=== PATIENT | male | born 1970 ===

== ENCOUNTER → 2019-12-15 09:23 | Outpatient (BNVA) | payer MEDICAID, SELFPAY | PROVIDERS: PCP Internal Medicine Geriatric Medicine; Referring Provider Internal Medicine Geriatric Medicine; Visit Provider Psychiatry & Neurology Neurology | DX: G47.33 Obstructive sleep apnea (adult) (pediatric) (principal); Z99.89 Dependence on other enabling machines and devices | CPT/HCPCS: 99204 ==

== ENCOUNTER 2020-01-07 16:54 | Outpatient (REF) | payer MEDICAID, SELFPAY ==
[2020-01-07 18:37] LABS: Anion Gap 17 (12-20); Blood Urea Nitrogen 17 mg/dL (9-16); Calcium 9.1 mg/dL (8.4-10.2); Carbon Dioxide 29 mmol/L (22-29); Chloride 93 mmol/L (96-108); Estimated Glomerular Filt Rate > 60; Glucose Random 248 mg/dL (60-115); Sodium 135 mmol/L (135-145)
== END 2020-01-07 16:55 | disposition home or self-care (01) ==
LOC: HO.LAB 16:54
PROVIDERS: PCP Internal Medicine Geriatric Medicine; Visit Provider Nurse Practitioner Family
DX: I10 Essential (primary) hypertension (principal)
CPT/HCPCS: 80048

== ENCOUNTER → 2020-01-19 08:29 | Outpatient (BNVA) | payer MEDICAID, SELFPAY | PROVIDERS: PCP Internal Medicine Geriatric Medicine; Referring Provider Internal Medicine Geriatric Medicine; Visit Provider Psychiatry & Neurology Neurology | DX: Z76.89 Persons encountering health services in other specified circumstances (principal) ==

== ENCOUNTER → 2020-03-15 10:26 | Outpatient (BNVA) | payer MEDICAID, SELFPAY | PROVIDERS: PCP Internal Medicine Geriatric Medicine; Visit Provider Internal Medicine Pulmonary Disease | DX: J45.50 Severe persistent asthma, uncomplicated (principal); R06.00 Dyspnea, unspecified; G47.33 Obstructive sleep apnea (adult) (pediatric) | CPT/HCPCS: 99212 ==

== ENCOUNTER → 2020-05-17 14:00 | Outpatient (BNVA) | payer MEDICAID, SELFPAY | PROVIDERS: PCP Internal Medicine Geriatric Medicine; Visit Provider Internal Medicine Pulmonary Disease | DX: J45.50 Severe persistent asthma, uncomplicated (principal); G47.33 Obstructive sleep apnea (adult) (pediatric) | CPT/HCPCS: 99212 ==

== ENCOUNTER 2020-05-24 12:21 | Outpatient (REF) | payer MEDICAID, SELFPAY ==
[2020-05-24 13:55] LABS: MANUAL DIFF FLAG NO
[2020-05-24 14:18] LABS: Alanine Aminotransferase 55 U/L (0-40); Albumin Level 3.9 g/dL (3.5-5.0); Alkaline Phosphatase 220 U/L (39-117); Anion Gap 20 (12-20); Aspartate Amino Transferase 67 U/L (5-37); Basophils Absolute Auto 0.1 X10*3/uL (0.0-0.2); Basophils Percent Auto 0.4 % (0-2); Bilirubin Total 0.5 mg/dL (0.0-1.0); Blood Urea Nitrogen 25 mg/dL (9-16); Calcium 9.4 mg/dL (8.4-10.2); Carbon Dioxide 24 mmol/L (22-29); Chloride 92 mmol/L (96-108); Eosinophils Absolute Auto 0.3 X10*3/uL (0.0-0.4); Eosinophils Percent Auto 2.7 % (0-4); Estimated Glomerular Filt Rate 47; Glucose Random 242 mg/dL (60-115); Hematocrit 35.3 % (42-52); Hemoglobin 11.1 g/dl (14.0-18.0); Imm Gran Abs Auto 0.04 X10*3/uL (0.00-0.03); Imm Gran Pct Auto 0.3 % (0.0-0.4); Iron 24 mcg/dL (45-160); Lymphocytes Absolute Auto 2.9 X10*3/uL (1.2-4.9); Lymphocytes Percent Auto 24.4 % (20-40); Mean Corpuscular HGB Conc 31.4 g/dl (31.0-36.0); Mean Corpuscular Hemoglobin 24.3 pg (27.0-33.0); Mean Corpuscular Volume 77.2 fL (80-98); Mean Platelet Volume 9.5 fL (9.4-12.4); Monocytes Absolute Auto 0.8 X10*3/uL (0.1-1.2); Monocytes Percent Auto 6.6 % (2-11); Neutrophils Absolute Auto 7.9 X10*3/uL (2.0-8.3); Neutrophils Percent Auto 65.6 % (45-73); Percent Iron Saturation 6 % (15-50); Platelet Count 500 X10*3/uL (160-400); Red Blood Count 4.57 X10*6/uL (4.60-5.80); Red Cell Distribution Width 15.8 % (11.0-16.0); Sodium 132 mmol/L (135-145); Total Iron Binding Capacity 377 mcg/dL (228-428); Total Protein 7.7 g/dL (6.5-8.0); Unsaturated Iron Binding 353 ug/dL; White Blood Count 12.1 X10*3/uL (4.8-10.8)
[2020-05-24 14:40] LABS: Ferritin 25 ng/mL (20-250)
== END 2020-05-24 12:22 | disposition home or self-care (01) ==
LOC: HO.LAB 12:21
PROVIDERS: PCP Internal Medicine Geriatric Medicine; Visit Provider Physician Assistant
DX: R10.11 Right upper quadrant pain (principal); D64.9 Anemia, unspecified; R74.01 Elevation of levels of liver transaminase levels
CPT/HCPCS: 36415; 80053; 82728; 83540; 85025

== ENCOUNTER 2020-06-07 14:24 | Outpatient (REF) | payer MEDICAID, SELFPAY ==
[2020-06-07 16:23] LABS: MANUAL DIFF FLAG NO
[2020-06-07 16:28] LABS: Basophils Absolute Auto 0.1 X10*3/uL (0.0-0.2); Basophils Percent Auto 0.4 % (0-2); Eosinophils Absolute Auto 0.4 X10*3/uL (0.0-0.4); Eosinophils Percent Auto 2.7 % (0-4); Hematocrit 34.6 % (42-52); Hemoglobin 10.6 g/dl (14.0-18.0); Imm Gran Abs Auto 0.05 X10*3/uL (0.00-0.03); Imm Gran Pct Auto 0.4 % (0.0-0.4); Lymphocytes Absolute Auto 2.1 X10*3/uL (1.2-4.9); Lymphocytes Percent Auto 15.5 % (20-40); Mean Corpuscular HGB Conc 30.6 g/dl (31.0-36.0); Mean Corpuscular Hemoglobin 24.1 pg (27.0-33.0); Mean Corpuscular Volume 78.6 fL (80-98); Mean Platelet Volume 9.3 fL (9.4-12.4); Monocytes Absolute Auto 0.8 X10*3/uL (0.1-1.2); Monocytes Percent Auto 5.7 % (2-11); Neutrophils Percent Auto 75.3 % (45-73); Platelet Count 458 X10*3/uL (160-400); Red Cell Distribution Width 15.6 % (11.0-16.0); White Blood Count 13.2 X10*3/uL (4.8-10.8)
== END 2020-06-07 14:25 | disposition home or self-care (01) ==
LOC: HO.LAB 14:24
PROVIDERS: Absent Provider Physician Assistant; PCP Internal Medicine Geriatric Medicine; Visit Provider Internal Medicine
DX: Z01.811 Encounter for preprocedural respiratory examination (principal); J45.50 Severe persistent asthma, uncomplicated; E66.01 Morbid (severe) obesity due to excess calories; Z68.42 Body mass index [BMI] 45.0-49.9, adult; G47.33 Obstructive sleep apnea (adult) (pediatric); D64.9 Anemia, unspecified; Z79.899 Other long term (current) drug therapy; Z99.89 Dependence on other enabling machines and devices
CPT/HCPCS: 36415; 85025; 99212

== ENCOUNTER 2020-06-09 11:22 | Day surgery (SDC) | payer MEDICAID, SELFPAY ==
--- NOTE | 2020-06-08 11:04 | P.CONAN_ITS ---
Documented by User: Kiesha Huston 06/08/20 11:12 HPI - Anesthesia Eval Consult details Narrative: 50yo M for Upper Endoscopy and Colonoscopy Pulm cleared FROM PULMONARY POINT OF VIEW THIS GENTLEMAN DOES NOT HAVE ANY CONTRAINDICATION TO THE PLANNED SURGICAL PROCEDURE. BECAUSE OF HIS MORBID OBESITY AND ALSO ASSOCIATED RESTRICTIVE PULMONARY DISORDER, HE IS A RELATIVELY HIGHER RISK FOR ANY PROLONGED SURGICAL PROCEDURE AND REQUIRING PROLONGED GENERAL ANESTHESIA. BUT FOR REGULAR COLONOSCOPY HE SHOULD HAVE NO PROBLEM. PMF Active Problems Active Problems: All Active Problems (Updated 06/07/20 @ 15:14 by Sherice Mathis MD) MAURIZIO on CPAP (Acute) Morbid obesity (Acute) Diabetes (Acute) Anemia (Acute) Apnea, sleep (Acute) Dyspnea on exertion (Acute) Severe persistent allergic asthma (Acute) HTN (hypertension) (Acute) Obstructive sleep apnea (Acute) Past Medical History Medical History Anemia Apnea, sleep Asthma Degeneration of L4-L5 intervertebral disc Diabetes HTN (hypertension) Morbid obesity MAURIZIO on CPAP Family History Family History Father No problems noted. Mother CVD (cardiovascular disease) Social History Social History Household Members: Significant Other Alcohol intake: never Smoking Status: Never smoker Use of substances other than those prescribed or required for medical reasons: No Have you been hit, kicked, punched, or otherwise hurt by someone within the past year? If so, by whom?: No Advance Directives: Yes Advance Directives Information Provided: Yes Advance Directives on File: No Advance Directives Date on File: 06/09/20 Current occupational status: unemployed Meds Allergies Allergy/AdvReac Type Severity Reaction Status Date / Time No Known Allergies Allergy Verified 06/07/20 14:32 Home Medications Medication Instructions Recorded Confirmed Last Taken Type acetaminophen 500 mg tablet 1,000 mg PO Q6H PRN 05/24/20 05/24/20 Unknown History amlodipine 2.5 mg-atorvastatin 10 1 tab PO DAILY 05/24/20 05/24/20 Unknown History mg tablet aspirin 81 mg tablet,delayed 81 mg PO DAILY 05/24/20 05/24/20 Unknown History release chlorthalidone 25 mg tablet 25 mg PO DAILY 05/24/20 05/24/20 Unknown History empagliflozin 10 mg tablet 10 mg PO DAILY 05/24/20 05/24/20 Unknown History furosemide 40 mg tablet 40 mg PO BID 05/24/20 05/24/20 Unknown History gabapentin 300 mg capsule 300 mg PO DAILY 05/24/20 05/24/20 Unknown History gabapentin 600 mg tablet 600 mg PO BEDTIME 05/24/20 05/24/20 Unknown History glimepiride 2 mg tablet 2 mg PO DAILY 05/24/20 05/24/20 Unknown History ketoconazole 2 % topical gel 1 appl TOPICAL DAILY 05/24/20 05/24/20 Unknown History lisinopril 40 mg tablet 40 mg PO DAILY 05/24/20 05/24/20 Unknown History metformin 1,000 mg tablet 1,000 mg PO BID 05/24/20 05/24/20 Unknown History naproxen 500 mg tablet 500 mg PO BID 05/24/20 05/24/20 Unknown History omeprazole 20 mg capsule,delayed 20 mg PO DAILY 05/24/20 05/24/20 Unknown History release pravastatin 20 mg tablet 20 mg PO BEDTIME 05/24/20 05/24/20 Unknown History tadalafil 10 mg tablet 10 mg PO DAILY PRN 05/24/20 05/24/20 Unknown History albuterol sulfate 2.5 mg INHALATION Q4-6H PRN 06/07/20 Unknown History albuterol sulfate 90 mcg/actuation 2 puff INHALATION Q6H PRN 06/07/20 Unknown History aerosol inhaler Exam Exam Date and Time: June 08, 2020 1104 Pertinent Lab Results Pertinent Lab Results: Laboratory Tests 05/24/20 06/07/20 13:29 15:30 WBC 13.2 H Hgb 10.6 L Hct 34.6 L Plt Count 458 H Sodium 132 L Potassium 4.0 Chloride 92 L Carbon Dioxide 24 BUN 25 H Creatinine 1.58 H Narrative Narrative: ECHO 2019 Nml LV systolic function with severe LVH Grade 2 Diastolic dysfunction Normal valves No gross pericardial effusion Stress MIBI 09/2019 Normal myocardial effusion Gated LVEF is 44% No transient ischemic dilation Assessment and Plan Assessment Anesthesia Assessment: Chart Reviewed Documented by User: Damon Gonzalez MD 06/09/20 13:20 [facility] Past Medical History Medical History Anemia Apnea, sleep Asthma Degeneration of L4-L5 intervertebral disc Diabetes HTN (hypertension) Morbid obesity MAURIZIO on CPAP Family History Family History Father No problems noted. Mother CVD (cardiovascular disease) Social History Social History Household Members: Significant Other Alcohol intake: never Smoking Status: Never smoker Use of substances other than those prescribed or required for medical reasons: No Have you been hit, kicked, punched, or otherwise hurt by someone within the past year? If so, by whom?: No Advance Directives: Yes Advance Directives Information Provided: Yes Advance Directives on File: No Advance Directives Date on File: 06/09/20 Current occupational status: unemployed Meds Allergies Allergy/AdvReac Type Severity Reaction Status Date / Time No Known Allergies Allergy Verified 06/07/20 14:32 Home Medications Medication Instructions Recorded Confirmed Last Taken Type acetaminophen 500 mg tablet 1,000 mg PO Q6H PRN 05/24/20 05/24/20 Unknown History amlodipine 2.5 mg-atorvastatin 10 1 tab PO DAILY 05/24/20 05/24/20 Unknown History mg tablet aspirin 81 mg tablet,delayed 81 mg PO DAILY 05/24/20 05/24/20 Unknown History release chlorthalidone 25 mg tablet 25 mg PO DAILY 05/24/20 05/24/20 Unknown History empagliflozin 10 mg tablet 10 mg PO DAILY 05/24/20 05/24/20 Unknown History furosemide 40 mg tablet 40 mg PO BID 05/24/20 05/24/20 Unknown History gabapentin 300 mg capsule 300 mg PO DAILY 05/24/20 05/24/20 Unknown History gabapentin 600 mg tablet 600 mg PO BEDTIME 05/24/20 05/24/20 Unknown History glimepiride 2 mg tablet 2 mg PO DAILY 05/24/20 05/24/20 Unknown History ketoconazole 2 % topical gel 1 appl TOPICAL DAILY 05/24/20 05/24/20 Unknown History lisinopril 40 mg tablet 40 mg PO DAILY 05/24/20 05/24/20 Unknown History metformin 1,000 mg tablet 1,000 mg PO BID 05/24/20 05/24/20 Unknown History naproxen 500 mg tablet 500 mg PO BID 05/24/20 05/24/20 Unknown History omeprazole 20 mg capsule,delayed 20 mg PO DAILY 05/24/20 05/24/20 Unknown History release pravastatin 20 mg tablet 20 mg PO BEDTIME 05/24/20 05/24/20 Unknown History tadalafil 10 mg tablet 10 mg PO DAILY PRN 05/24/20 05/24/20 Unknown History albuterol sulfate 2.5 mg INHALATION Q4-6H PRN 06/07/20 Unknown History albuterol sulfate 90 mcg/actuation 2 puff INHALATION Q6H PRN 06/07/20 Unknown History aerosol inhaler Assessment and Plan Assessment Anesthesia Assessment: Anesthesia Plan Discussed and Chart Reviewed Final Anesthetic Review NPO: Yes ASA Class: III Final Preanesthetic Review: No Changes in Pt Med Stat, Meds/Allgs Chart Reviewed, Consent Obtained/Reviewed and Anes Risks/Benef Reviewed Patient Risk: High Procedure Risk: Low Anesthetic Plan Anesthetic Plan: GA Disposition: Standard PACU
[2020-06-09 12:02] VITALS: BP 138/79; PULSE 103; RESP 20; TEMP 36.9; O2SAT 96
[2020-06-09 12:03] LABS: Glucose, Whole Blood 159 mg/dL (60-115)
[2020-06-09 12:25] VITALS: BMI 46.2
[2020-06-09] MEDS: Lactated Ringers 1,000 ML 50 ML IV (12:27)
--- NOTE | 2020-06-09 12:48 | P.OP_ITS ---
Operative Note Operative Note Date of Service: 06/09/20 Narrative: Pre-op diagnosis: Iron deficiency anemia, GERD Post-op diagnosis: other (Gastritis, gastric antral nodules, diverticulosis, hemorrhoids) Procedure: FLEXIBLE TRANSORAL UPPER GASTROINTESTINAL ENDOSCOPY WITH BIOPSIES AND COLONOSCOPY TILL CECUM UPPER ENDOSCOPY Consent: Indications for the procedure and potential complications of bleeding, perforation, reaction to medications and missed diagnosis were discussed with the patient and informed consent was obtained. Instrument: Olympus GIF H 190 mid size upper endoscope Monitoring: Vital signs and clinical assessment, continuous EKG monitoring, Pulse oximetry, Carbon Dioxide monitoring and blood pressure monitoring were done throughout the procedure. Procedure: The patient was placed in the left lateral decubitis position and pre-procedure medications were administered and a bite block was placed. The endoscope was inserted into the mouth and advanced under direct vision to the third part of duodenum. A careful inspection was made as the upper endoscope was withdrawn including a retroflexed examination of the proximal stomach; Findings and interventions are described below. Findings: Larynx: ETT in place Esophagus: GE junction at 42 cms. No esophagitis or Bales's. Stomach: Moderate diffuse gastric erythema with nodular appearing gastric mucosa - Biopsies were obtained from the body and antrum. Multiple 5-10 mm chronic appearing nodules with central erosions in the gastric antrum - biopsied. Grade 2 flap valve on retroflexed examination of the cardia. Duodenum: Normal bulb and descending duodenum. Biopsies were obtained from 3rd part of the duodenum to check for celiac sprue. Intervention: Biopsies as noted above COLONOSCOPY PROCEDURE NOTE Consent: Indications for the procedure and potential complications of bleeding, perforation, reaction to medications and missed diagnosis were discussed with the patient and informed consent was obtained. Instrument: Olympus PCF H 190 L variable stiffness pediatric colonoscope Monitoring: Vital signs and clinical assessment, intermittent blood pressure monitoring, continuous EKG monitoring, Pulse oximetry and Carbon Dioxide monitoring were done throughout the procedure. Colon withdrawl time was 21 minutes. Procedure: The patient was placed in the left lateral decubitis position and pre-procedure medications were administered. After a digital rectal examination of the ano-rectum, the video colonoscope was inserted into the rectum and advanced through the colon to the cecum. The colonoscope was slowly withdrawn in a retrograde panoramic fashion and the colon mucosa was carefully examined including a retroflexed view of the rectum. Findings and interventions are described below. Procedure Difficulty: : Without difficulty Findings: Terminal Ileum: Not evaluated Cecum: Normal Ascending Colon: Normal Transverse Colon: Normal Descending Colon: Normal Sigmoid Colon: Moderate diverticulosis Rectum: Normal Ano-rectum: Moderate internal hemorrhoids Colon preparation: Good after some irrigation Impression and Post Procedure Diagnosis: Endoscopy Findings: STOMACH: Moderate diffuse gastric erythema with nodular appearing gastric mucosa - Biopsies were obtained from the body and antrum. Multiple 5-10 mm chronic appearing nodules with central erosions in the gastric antrum - biopsied. DUODENUM: Normal biopsied to check for celiac sprue Colonoscopy Findings: No polyps were detected. Moderate diverticulosis seen in the sigmoid colon Moderate hemorrhoids on retroflexed exam. No etiology found for iron deficiency anemia - questionably related to H.pylori gastritis Plan: Await pathology results Patient to schedule a FU appointment in the GI Clinic with GALLITO Epps . If gastric biopsies are negative for Helicobacter pylori, advise checking stool hemoccults and if positive, consider further evaluation of iron deficiency anemia with a capsule endoscopy. Repeat Colonoscopy in 10 years. Above findings were reviewed with the patient and GERD, Gastritis and diverticulosis handouts were given in the discharge area Surgeon: Kike Childress MD Anesthesia: MAC (Luisa Iglesias CRNA & Dr Gonzalez) [place] Manager: Terese Lockett Estimated blood loss (mL): 0 Pathology: other (A- SMALL BOWEL BIOPSIES R/O CELIAC B- GASTRIC ANTRUM C- GASTRIC ANTRAL NODULE D- GASTRIC BODY R/O GASTRITIS) Condition: stable Disposition: PACU
--- NOTE | 2020-06-09 12:48 | MHC.SHP ---
Pre-Procedural Eval Section A The patient is an INPATIENT: No Changes since office visit: Yes Patient answered all questions; No Cold of Flu in the past 2 weeks, No New Medical Problems and No Changes in Medication The History & Physical has been completed within 30 days and I have reviewed it.: Yes Section B Chief Complaint: Anemia Allergies: Allergies Allergy/AdvReac Type Severity Reaction Status Date / Time No Known Allergies Allergy Verified 06/07/20 14:32 Exam Surgical H&P Exam: Normal: Heart, Normal: Lungs, Normal: Extremities and Normal: Abdomen and Significant Findings: Neurological (morbidly obese) Plan Diagnosis/Plan: Unchanged I have reviewed the history and physical and performed a pertinent physical examination on my patient. No changes have occurred unless specified.
[2020-06-09 14:15] VITALS: BP 161/87; PULSE 105; RESP 20; TEMP 36.7; O2SAT 99
[2020-06-09 14:20] VITALS: BP 153/90; PULSE 101; RESP 20; O2SAT 98
[2020-06-09 14:25] VITALS: BP 149/89; PULSE 100; RESP 18; O2SAT 98
[2020-06-09 14:30] VITALS: BP 143/81; PULSE 99; RESP 20; O2SAT 97
[2020-06-09 14:43] VITALS: BP 142/89; PULSE 98; RESP 20; O2SAT 97
== END 2020-06-09 15:04 | disposition home or self-care (01) ==
PROVIDERS: PCP Internal Medicine Geriatric Medicine; Visit Provider Internal Medicine Gastroenterology
PROC: (CPT 45378; principal; 2020-06-09 12:30)
DX: D50.9 Iron deficiency anemia, unspecified (principal); K57.30 Diverticulosis of large intestine without perforation or abscess without bleeding; K64.8 Other hemorrhoids; K29.50 Unspecified chronic gastritis without bleeding; B96.81 Helicobacter pylori [H. pylori] as the cause of diseases classified elsewhere; K31.7 Polyp of stomach and duodenum; G47.33 Obstructive sleep apnea (adult) (pediatric); J45.909 Unspecified asthma, uncomplicated; I10 Essential (primary) hypertension; E11.9 Type 2 diabetes mellitus without complications; E66.01 Morbid (severe) obesity due to excess calories; Z79.51 Long term (current) use of inhaled steroids; Z79.82 Long term (current) use of aspirin; Z79.899 Other long term (current) drug therapy; Z79.84 Long term (current) use of oral hypoglycemic drugs
CPT/HCPCS: 45378; 43239; 82947; 88305; 88342; J0330; J2405; J3010

== ENCOUNTER 2020-06-24 13:43 | Outpatient (REF) | payer MEDICAID, SELFPAY | END 2020-06-24 13:44 | disposition home or self-care (01) | LOC: HO.MDS 13:43 | PROVIDERS: PCP Internal Medicine Geriatric Medicine; Visit Provider Internal Medicine Pulmonary Disease | DX: J45.50 Severe persistent asthma, uncomplicated (principal) | CPT/HCPCS: 96372; J0517 ==

== ENCOUNTER 2020-07-08 16:27 | Outpatient (REF) | payer MEDICAID, SELFPAY | END 2020-07-08 16:28 | disposition home or self-care (01) | LOC: HO.LNP 16:27 | PROVIDERS: Visit Provider Physician Assistant | DX: A40.8 Other streptococcal sepsis (principal) | CPT/HCPCS: 87338 ==

== ENCOUNTER 2020-07-22 13:55 | Outpatient (REF) | payer MEDICAID, SELFPAY | END 2020-07-22 13:56 | disposition home or self-care (01) | LOC: HO.MDS 13:55 | PROVIDERS: PCP Internal Medicine Geriatric Medicine; Visit Provider Internal Medicine Pulmonary Disease | DX: J45.50 Severe persistent asthma, uncomplicated (principal) | CPT/HCPCS: 96372; J0517 ==

== ENCOUNTER 2020-08-01 14:01 | Outpatient (REF) | payer MEDICAID, SELFPAY ==
[2020-08-01 17:11] LABS: Gamma Glutamyl Transpeptidase 339 U/L (11-51); Iron 18 mcg/dL (45-160); Percent Iron Saturation 5 % (15-50); Total Iron Binding Capacity 367 mcg/dL (228-428); Unsaturated Iron Binding 349 ug/dL
[2020-08-01 17:31] LABS: Ferritin 10 ng/mL (20-250)
== END 2020-08-01 14:02 | disposition home or self-care (01) ==
LOC: HO.LAB 14:01
PROVIDERS: PCP Internal Medicine Geriatric Medicine; Visit Provider Physician Assistant
DX: R74.8 Abnormal levels of other serum enzymes (principal); K21.9 Gastro-esophageal reflux disease without esophagitis; D64.9 Anemia, unspecified; Z79.899 Other long term (current) drug therapy; Z79.82 Long term (current) use of aspirin
CPT/HCPCS: 36415; 82728; 82977; 83540; 99212

== ENCOUNTER → 2020-08-02 14:43 | Outpatient (BNVA) | payer MEDICAID, SELFPAY | PROVIDERS: PCP Internal Medicine Geriatric Medicine; Visit Provider Internal Medicine Pulmonary Disease | DX: J45.909 Unspecified asthma, uncomplicated (principal); G47.33 Obstructive sleep apnea (adult) (pediatric); Z99.89 Dependence on other enabling machines and devices | CPT/HCPCS: 99212 ==

== ENCOUNTER 2020-08-18 13:58 | Outpatient (REF) | payer MEDICAID, SELFPAY ==
--- NOTE | ~2020-08-18 | US_ITS ---
EXAMINATION: US COMPLETE ABDOMEN WITH LIVER ELASTOGRAPHY CLINICAL INFORMATION: Abnormal liver function. COMPARISON: None. TECHNIQUE: Real-time imaging of the abdominal viscera. Noninvasive ultrasound liver fibrosis assessment is performed using Vanessa ElastPQ point quantification shear wave elastography (pSWE) with a C5-2 MHz transducer. Multiple elastography samples are obtained. FINDINGS: PANCREAS: Not well visualized due to bowel gas. ABDOMINAL AORTA: Not well visualized due to bowel gas. INFERIOR VENA CAVA: Not well visualized due to bowel gas. LIVER: The liver is enlarged. Liver echotexture is increased. The contour of the liver is slightly irregular. No focal lesion or intrahepatic biliary duct dilatation. The right lobe measures 25 cm in length. The left lobe measures 15 cm in length. Portal flow is normal/hepatopedal. Shear wave liver elastography median stiffness is 1.4 m/s (reference: normal median stiffness is 1.3 m/s or less). IQR/median stiffness to assess sampling precision is 0.3 (reference: good quality data set is IQR/median stiffness of 0.15 or less). GALLBLADDER: There is question of a gallstone in the neck of the gallbladder. The gallbladder is normal in size. The gallbladder wall is normal. There is no pericholecystic fluid. COMMON BILE DUCT: Normal in caliber measuring 0.3 cm in diameter. RIGHT KIDNEY: Normal. No hydronephrosis. No renal calculi or focal parenchymal lesions. The kidney measures 14 cm in maximum dimension. LEFT KIDNEY: Normal. No hydronephrosis. No renal calculi or focal parenchymal lesions. The kidney measures 14 cm in maximum dimension. SPLEEN: The spleen is upper normal in size. The spleen measures 13 cm in maximum dimension. FREE FLUID: None. US/US abdomen comp w elastography IMPRESSION: 1. Impression: Enlarged echogenic liver suggestive of fatty infiltration. The contour of the liver is slightly irregular questionable for mild changes of cirrhosis. Question gallstone. 2. Liver elastography: Limited due to sampling error. REFERENCE: Society of Radiologists in Ultrasound Liver Stiffness Thresholds (2020): LIVER STIFFNESS THRESHOLDS: *Liver Stiffness equal or less than 1.3 m/s: High probability of being normal. *Liver Stiffness less than 1.7 m/s: In the absence of other known clinical signs, rules out compensated advanced chronic liver disease. *Liver Stiffness 1.7-2.1 m/s: Suggestive of compensated advanced chronic liver disease but need further test for confirmation. *Liver Stiffness over 2.1 m/s: Rules in compensated advanced chronic liver disease. *Liver Stiffness over 2.4 m/s: Suggestive of clinically significant portal hypertension. QUALITY OF DATA SET: *IQR/Median value equal or less than 0.15 implies a quality data set. *IQR/Median value over 0.15 implies a poor quality data set. SIGNIFICANT CHANGE FROM PRIOR EXAM: Significant change if liver stiffness measurement is 10% or greater from prior exam. OTHER CONSIDERATIONS: The stage of liver fibrosis may be overestimated in the setting of acute hepatitis, liver inflammation, elevated liver function tests, hepatic vascular congestion, obstructive cholestasis, non-fasting state, and infiltrative diseases such as amyloidosis and lymphoma. In some patients with NAFLD, the liver stiffness thresholds for compensated advanced chronic liver disease may be lower. In causes other than viral hepatitis and NAFLD, liver stiffness thresholds are not well established.
== END 2020-08-18 13:59 | disposition home or self-care (01) ==
LOC: HO.US 13:58
PROVIDERS: Visit Provider Physician Assistant
DX: R74.8 Abnormal levels of other serum enzymes (principal)
CPT/HCPCS: 76705; 76981

== ENCOUNTER 2020-08-25 13:54 | Outpatient (REF) | payer MEDICAID, SELFPAY | END 2020-08-25 13:55 | disposition home or self-care (01) | LOC: HO.MDS 13:54 | PROVIDERS: PCP Internal Medicine Geriatric Medicine; Visit Provider Internal Medicine Pulmonary Disease | DX: J45.50 Severe persistent asthma, uncomplicated (principal) | CPT/HCPCS: 96372; J0517 ==

== ENCOUNTER 2020-09-13 13:50 | Outpatient (REF) | payer MEDICAID, SELFPAY | END 2020-09-13 13:51 | disposition home or self-care (01) | LOC: HO.LAB 13:50 | PROVIDERS: PCP Internal Medicine Geriatric Medicine; Visit Provider Internal Medicine | DX: Z20.822 Contact with and (suspected) exposure to COVID-19 (principal) | CPT/HCPCS: C9803; U0003; U0005 ==

== ENCOUNTER → 2020-09-14 13:08 | Outpatient (BNVA) | payer MEDICAID, SELFPAY | PROVIDERS: PCP Internal Medicine Geriatric Medicine; Visit Provider Physician Assistant ==

== ENCOUNTER → 2020-11-30 09:23 | Outpatient (BNVA) | payer MEDICAID, SELFPAY | PROVIDERS: PCP Internal Medicine Geriatric Medicine; Visit Provider Nurse Practitioner Gerontology | DX: E66.09 Other obesity due to excess calories (principal); E11.42 Type 2 diabetes mellitus with diabetic polyneuropathy; I10 Essential (primary) hypertension; Z79.4 Long term (current) use of insulin | CPT/HCPCS: 82043; 82947; 83036; 99212 ==

== ENCOUNTER 2020-11-30 10:59 | Outpatient (REF) | payer MEDICAID, SELFPAY ==
[2020-11-30 14:17] LABS: Creatinine Urine 48.12 mg/dL; Microalbumin Urine < 5.0 mg/L
== END 2020-11-30 11:00 | disposition home or self-care (01) ==
LOC: HO.10HDL 10:59
PROVIDERS: Visit Provider Nurse Practitioner Gerontology
DX: E11.42 Type 2 diabetes mellitus with diabetic polyneuropathy (principal); Z79.4 Long term (current) use of insulin
CPT/HCPCS: 82043

== ENCOUNTER → 2020-12-14 09:25 | Outpatient (BNVA) | payer MEDICAID, SELFPAY | PROVIDERS: PCP Internal Medicine Geriatric Medicine; Visit Provider Nurse Practitioner Gerontology | DX: E11.42 Type 2 diabetes mellitus with diabetic polyneuropathy (principal); E66.09 Other obesity due to excess calories; I10 Essential (primary) hypertension; Z79.4 Long term (current) use of insulin | CPT/HCPCS: 82947; 99212 ==

== ENCOUNTER → 2020-12-20 13:16 | Outpatient (BNVA) | payer MEDICAID, SELFPAY | PROVIDERS: PCP Internal Medicine Geriatric Medicine; Referring Provider Internal Medicine Geriatric Medicine; Visit Provider Surgery | DX: K85.10 Biliary acute pancreatitis without necrosis or infection (principal); E11.9 Type 2 diabetes mellitus without complications; I10 Essential (primary) hypertension; E66.01 Morbid (severe) obesity due to excess calories | CPT/HCPCS: 99202 ==

== ENCOUNTER 2020-12-28 13:06 | Outpatient (REF) | payer MEDICAID, SELFPAY ==
--- NOTE | ~2020-12-28 | XR_ITS ---
EXAMINATION: XR CHEST CLINICAL INFORMATION: History of pneumonia. COMPARISON: 02/07/2019 TECHNIQUE: 2 views of the chest were obtained. FINDINGS: No evidence of an acute infiltrate on this study. The lung lal are grossly clear. The cardiac silhouette is comparable to previous. The hilar structures are indistinct but not felt to be pathologically enlarged. There is no effusion. Mild early degeneration in the thoracic spine. XR/XR chest 2V IMPRESSION: No acute finding.
== END 2020-12-28 13:07 | disposition home or self-care (01) ==
LOC: HO.US 13:06
PROVIDERS: PCP Internal Medicine Geriatric Medicine; Visit Provider Internal Medicine Geriatric Medicine
DX: K85.90 Acute pancreatitis without necrosis or infection, unspecified (principal); R94.5 Abnormal results of liver function studies; Z87.01 Personal history of pneumonia (recurrent)
CPT/HCPCS: 71046

== ENCOUNTER → 2020-12-29 15:06 | Outpatient (BNVA) | payer MEDICAID, SELFPAY | PROVIDERS: PCP Internal Medicine Geriatric Medicine; Visit Provider Registered Nurse Diabetes Educator | DX: E11.42 Type 2 diabetes mellitus with diabetic polyneuropathy (principal); Z79.4 Long term (current) use of insulin | CPT/HCPCS: 99211 ==

== ENCOUNTER 2020-12-30 13:58 | Outpatient (REF) | payer MEDICAID, SELFPAY ==
--- NOTE | ~2020-12-30 | US_ITS ---
EXAMINATION: US ABDOMEN COMPLETE CLINICAL INFORMATION: Pancreatitis. Elevated LFTs. COMPARISON: Ultrasound abdomen with elastography 08/18/2020. Ultrasound abdomen 07/01/2012. TECHNIQUE: Real-time imaging of the abdominal viscera. FINDINGS: PANCREAS: Not well visualized due to bowel gas. ABDOMINAL AORTA: Not well visualized due to bowel gas INFERIOR VENA CAVA: Visualized portions are normal. LIVER: Liver echotexture is slightly heterogeneous. The contour of the liver is slightly irregular or scalloped. No focal liver lesion is seen. The liver may be enlarged. The right lobe measures 24 cm and the left lobe measures 13 cm. There is no biliary duct dilatation. GALLBLADDER: The gallbladder is normal in size. There is a gallstone in the gallbladder. The gallbladder wall does not appear thickened. COMMON BILE DUCT: Normal in caliber measuring 0.3 cm in diameter. RIGHT KIDNEY: Normal. No hydronephrosis. No renal calculi or focal parenchymal lesions. The kidney measures 13.5 cm in maximum dimension. LEFT KIDNEY: Normal. No hydronephrosis. No renal calculi or focal parenchymal lesions. The kidney measures 13.1 cm in maximum dimension. SPLEEN: Normal. The spleen measures 13.4 cm in maximum dimension. FREE FLUID: None. US/US abdomen complete IMPRESSION: Heterogeneous liver echotexture and slightly irregular contour of the liver questionable for hepatocellular disease and mild cirrhotic change. Gallstone. Normal caliber intra and extrahepatic bile ducts. Limited visualization of the pancreas and aorta.
== END 2020-12-30 13:59 | disposition home or self-care (01) ==
LOC: HO.HMGCX 13:58
PROVIDERS: PCP Internal Medicine Geriatric Medicine; Visit Provider Internal Medicine Geriatric Medicine
DX: K85.90 Acute pancreatitis without necrosis or infection, unspecified (principal); R94.5 Abnormal results of liver function studies; Z87.01 Personal history of pneumonia (recurrent)
CPT/HCPCS: 76700

== ENCOUNTER → 2021-01-02 12:48 | Outpatient (BNVA) | payer MEDICAID, SELFPAY | PROVIDERS: PCP Internal Medicine Geriatric Medicine; Visit Provider Dietitian, Registered | DX: E11.42 Type 2 diabetes mellitus with diabetic polyneuropathy (principal); E66.09 Other obesity due to excess calories; Z68.42 Body mass index [BMI] 45.0-49.9, adult; Z79.4 Long term (current) use of insulin | CPT/HCPCS: 97802 ==

== ENCOUNTER → 2021-01-09 14:37 | Outpatient (BNVA) | payer MEDICAID, SELFPAY | PROVIDERS: PCP Physician Assistant; Visit Provider Registered Nurse Diabetes Educator | DX: E11.42 Type 2 diabetes mellitus with diabetic polyneuropathy (principal); Z79.4 Long term (current) use of insulin | CPT/HCPCS: 99211 ==

== ENCOUNTER 2021-01-23 12:55 | Outpatient (REF) | payer MEDICAID, SELFPAY | END 2021-01-23 12:56 | disposition home or self-care (01) | LOC: HO.MDS 12:55 | PROVIDERS: Visit Provider Internal Medicine Pulmonary Disease | DX: J45.50 Severe persistent asthma, uncomplicated (principal) | CPT/HCPCS: 96372; J0517 ==

== ENCOUNTER → 2021-01-25 14:05 | Outpatient (BNVA) | payer MEDICAID, SELFPAY | PROVIDERS: PCP Internal Medicine Geriatric Medicine; Visit Provider Internal Medicine Pulmonary Disease | DX: J45.50 Severe persistent asthma, uncomplicated (principal); G47.33 Obstructive sleep apnea (adult) (pediatric); Z91.09 Other allergy status, other than to drugs and biological substances; Z99.89 Dependence on other enabling machines and devices | CPT/HCPCS: 99212 ==

== ENCOUNTER → 2021-01-26 14:55 | Outpatient (BNVA) | payer MEDICAID, SELFPAY | PROVIDERS: PCP Internal Medicine Geriatric Medicine; Visit Provider Registered Nurse Diabetes Educator | DX: E11.42 Type 2 diabetes mellitus with diabetic polyneuropathy (principal); Z79.4 Long term (current) use of insulin | CPT/HCPCS: 99211 ==

== ENCOUNTER → 2021-01-30 10:02 | Outpatient (BNVA) | payer MEDICAID, SELFPAY | PROVIDERS: PCP Internal Medicine Geriatric Medicine; Visit Provider Dietitian, Registered | DX: E11.42 Type 2 diabetes mellitus with diabetic polyneuropathy (principal); E66.09 Other obesity due to excess calories; Z68.41 Body mass index [BMI] 40.0-44.9, adult; Z79.4 Long term (current) use of insulin | CPT/HCPCS: 97803 ==

== ENCOUNTER 2021-02-03 13:19 | Outpatient (REF) | payer MEDICAID, SELFPAY | END 2021-02-03 13:20 | disposition home or self-care (01) | LOC: HO.LAB 13:19 | PROVIDERS: Visit Provider Internal Medicine | DX: Z20.822 Contact with and (suspected) exposure to COVID-19 (principal) | CPT/HCPCS: C9803; U0003; U0005 ==

== ENCOUNTER 2021-02-22 14:03 | Outpatient (REF) | payer MEDICAID, SELFPAY | END 2021-02-22 14:04 | disposition home or self-care (01) | LOC: HO.MDS 14:03 | PROVIDERS: Visit Provider Internal Medicine Pulmonary Disease | DX: J45.50 Severe persistent asthma, uncomplicated (principal) | CPT/HCPCS: 96372; J0517 ==

== ENCOUNTER 2021-03-01 06:15 | Day surgery (SDC) | payer MEDICAID, SELFPAY ==
--- NOTE | 2021-02-28 08:37 | P.CONAN_ITS ---
Documented by User: Kiesha Huston NP 02/28/21 08:39 HPI - Anesthesia Eval Consult details Narrative: 51yo M for Cholecystectomy Laparoscopic,poss open Stable at 01/2021 pulmo visit PMF Active Problems Active Problems: All Active Problems (Updated 01/25/21 @ 14:26 by Rene Sánchez MD) Environmental allergies (Acute) Gallstone pancreatitis (Acute) Type 2 diabetes mellitus with diabetic polyneuropathy (Acute) Obesity due to excess calories (Acute) Cirrhosis (Acute) Acid reflux (Acute) Elevated alkaline phosphatase measurement (Acute) MAURIZIO on CPAP (Acute) Morbid obesity (Acute) Diabetes (Acute) Anemia (Acute) Apnea, sleep (Acute) Dyspnea on exertion (Acute) Severe persistent allergic asthma (Acute) HTN (hypertension) (Acute) Obstructive sleep apnea (Acute) Past Medical History Medical History (Updated 01/25/21 @ 14:26 by Rene Sánchez MD) Anemia Apnea, sleep Asthma Degeneration of L4-L5 intervertebral disc Diabetes HTN (hypertension) Hx of pancreatitis Morbid obesity Obesity due to excess calories MAURIZIO on CPAP Type 2 diabetes mellitus with diabetic polyneuropathy Family History Family History Father Diabetes Mother CVD (cardiovascular disease) Paternal Grandmother Diabetes Paternal Aunt Diabetes Surgical History Surgical History History of back surgery Social History Social History (Updated 12/30/20 @ 12:00 by ALEM Pelletier) Household Members: Significant Other Alcohol intake: never Patient Tobacco Use Status: Never used Tobacco Advance Directives Date on File: 06/09/20 Current occupational status: unemployed Meds Allergies Allergy/AdvReac Type Severity Reaction Status Date / Time No Known Allergies Allergy Verified 01/25/21 14:09 Home Medications Medication Instructions Recorded Confirmed Last Taken Type acetaminophen 500 mg tablet 1,000 mg PO Q6H PRN 05/24/20 12/30/20 Unknown History amlodipine 2.5 mg-atorvastatin 10 1 tab PO DAILY 05/24/20 12/30/20 Unknown History mg tablet aspirin 81 mg tablet,delayed 81 mg PO DAILY 05/24/20 12/30/20 Unknown History release (Adult Low Dose Aspirin) empagliflozin 10 mg tablet 10 mg PO DAILY 05/24/20 12/30/20 Unknown History (Jardiance) glimepiride 2 mg tablet 2 mg PO DAILY 05/24/20 12/30/20 Unknown History ketoconazole 2 % topical gel 1 appl TOPICAL DAILY 05/24/20 12/30/20 Unknown History lisinopril 40 mg tablet 40 mg PO DAILY 05/24/20 12/30/20 Unknown History metformin 1,000 mg tablet 1,000 mg PO BID 05/24/20 12/30/20 Unknown History pravastatin 20 mg tablet 20 mg PO BEDTIME 05/24/20 12/30/20 Unknown History albuterol sulfate 2.5 mg INHALATION Q4-6H PRN 06/07/20 12/30/20 Unknown History albuterol sulfate 90 mcg/actuation 2 puff INHALATION Q6H PRN 06/07/20 12/30/20 Unknown History aerosol inhaler (ProAir HFA) amitriptyline 10 mg tablet 10 mg PO BEDTIME 11/30/20 12/30/20 Unknown History blood sugar diagnostic (FreeStyle 11/30/20 12/30/20 Unknown History Lite Strips) blood-glucose meter (FreeStyle 11/30/20 12/30/20 Unknown History Lite Meter) lancets 28 gauge (FreeStyle 11/30/20 12/30/20 Unknown History Lancets) tadalafil 10 mg tablet (Cialis) 20 mg PO DAILY PRN tab 11/30/20 12/30/20 Unknown History omeprazole 20 mg capsule,delayed 20 mg PO DAILY cap 12/14/20 12/30/20 Unknown History release insulin glargine 100 unit/mL 40 unit SUBCUT DAILY ml 12/30/20 12/30/20 Unknown History subcutaneous solution (Lantus U-100 Insulin) Exam Exam Date and Time: February 28, 2021 0837 Assessment and Plan Assessment Anesthesia Assessment: Chart Reviewed Documented by User: Raymundo Lay 03/01/21 15:50 [facility] Past Medical History Medical History (Updated 01/25/21 @ 14:26 by Rene Sánchez MD) Anemia Apnea, sleep Asthma Degeneration of L4-L5 intervertebral disc Diabetes HTN (hypertension) Hx of pancreatitis Morbid obesity Obesity due to excess calories MAURIZIO on CPAP Type 2 diabetes mellitus with diabetic polyneuropathy Family History Family History Father Diabetes Mother CVD (cardiovascular disease) Paternal Grandmother Diabetes Paternal Aunt Diabetes Family history of problems with anesthesia: No Surgical History Surgical History History of back surgery History of Problems with Anesthesia: No Social History Social History (Updated 12/30/20 @ 12:00 by ALEM Pelletier) Household Members: Significant Other Alcohol intake: never Patient Tobacco Use Status: Never used Tobacco Advance Directives Date on File: 06/09/20 Current occupational status: unemployed Meds Allergies Allergy/AdvReac Type Severity Reaction Status Date / Time No Known Allergies Allergy Verified 01/25/21 14:09 Home Medications Medication Instructions Recorded Confirmed Last Taken Type acetaminophen 500 mg tablet 1,000 mg PO Q6H PRN 05/24/20 12/30/20 Unknown History amlodipine 2.5 mg-atorvastatin 10 1 tab PO DAILY 05/24/20 12/30/20 Unknown History mg tablet aspirin 81 mg tablet,delayed 81 mg PO DAILY 05/24/20 12/30/20 Unknown History release (Adult Low Dose Aspirin) empagliflozin 10 mg tablet 10 mg PO DAILY 05/24/20 12/30/20 Unknown History (Jardiance) glimepiride 2 mg tablet 2 mg PO DAILY 05/24/20 12/30/20 Unknown History ketoconazole 2 % topical gel 1 appl TOPICAL DAILY 05/24/20 12/30/20 Unknown History lisinopril 40 mg tablet 40 mg PO DAILY 05/24/20 12/30/20 Unknown History metformin 1,000 mg tablet 1,000 mg PO BID 05/24/20 12/30/20 Unknown History pravastatin 20 mg tablet 20 mg PO BEDTIME 05/24/20 12/30/20 Unknown History albuterol sulfate 2.5 mg INHALATION Q4-6H PRN 06/07/20 12/30/20 Unknown History albuterol sulfate 90 mcg/actuation 2 puff INHALATION Q6H PRN 06/07/20 12/30/20 Unknown History aerosol inhaler (ProAir HFA) amitriptyline 10 mg tablet 10 mg PO BEDTIME 11/30/20 12/30/20 Unknown History blood sugar diagnostic (FreeStyle 11/30/20 12/30/20 Unknown History Lite Strips) blood-glucose meter (FreeStyle 11/30/20 12/30/20 Unknown History Lite Meter) lancets 28 gauge (FreeStyle 11/30/20 12/30/20 Unknown History Lancets) tadalafil 10 mg tablet (Cialis) 20 mg PO DAILY PRN tab 11/30/20 12/30/20 Unknown History omeprazole 20 mg capsule,delayed 20 mg PO DAILY cap 12/14/20 12/30/20 Unknown History release insulin glargine 100 unit/mL 40 unit SUBCUT DAILY ml 12/30/20 12/30/20 Unknown History subcutaneous solution (Lantus U-100 Insulin) Exam Airway Mallampati Class: III TM Dist: >3cm Neck ROM: Full Loose/Missing/Broken Teeth: Yes (Poor dentation ) Heart: rrr Lungs: bl breath sounds Assessment and Plan Final Anesthetic Review Family History of Problems with Anesthesia: No History of Problems with Anesthesia: No NPO: Yes ASA Class: III Final Preanesthetic Review: Meds/Allgs Chart Reviewed Patient Risk: High Procedure Risk: Intermediate Anesthetic Plan Anesthetic Plan: GA Disposition: Standard PACU
[2021-03-01] VITALS (11 sets, daily range): BP systolic 136–157; BP diastolic 70–91; PULSE 86–99; RESP 14–18; TEMP 36.6–37.1; O2SAT 89–100; BMI 41.1
--- NOTE | 2021-03-01 | ECG_ITS ---
Test Reason : pre op Blood Pressure : / mmHG Vent. Rate : 095 BPM Atrial Rate : 095 BPM P-R Int : 150 ms QRS Dur : 076 ms QT Int : 352 ms P-R-T Axes : 033 -02 022 degrees QTc Int : 442 ms Normal sinus rhythm Possible Inferior infarct (cited on or before 07-FEB-2019) Abnormal ECG When compared with ECG of 07-FEB-2019 16:15, T wave inversion no longer evident in Lateral leads Referred By: Kiesha Huston Electronically Signed By:MENDY MENDIOLA MD
[2021-03-01 06:43] LABS: Hematocrit 37.9 % (42.0-52.0); Hemoglobin 11.8 g/dl (14.0-18.0); Mean Corpuscular HGB Conc 31.1 g/dl (31.0-36.0); Mean Corpuscular Hemoglobin 23.7 pg (27.0-33.0); Mean Corpuscular Volume 76.1 fL (80.0-98.0); Mean Platelet Volume 9.3 fL (9.4-12.4); Platelet Count 479 X10*3/uL (160-400); Red Blood Count 4.98 X10*6/uL (4.60-5.80); Red Cell Distribution Width 14.2 % (11.0-16.0); White Blood Count 11.4 X10*3/uL (4.8-10.8)
[2021-03-01 06:51] LABS: Alanine Aminotransferase 27 U/L (0-40); Alkaline Phosphatase 141 U/L (39-117); Anion Gap 13 (12-20); Aspartate Amino Transferase 23 U/L (5-37); Bilirubin Total 0.4 mg/dL (0.0-1.0); Blood Urea Nitrogen 18 mg/dL (9-16); Calcium 9.1 mg/dL (8.4-10.2); Carbon Dioxide 26 mmol/L (22-29); Chloride 105 mmol/L (96-108); Creatinine Clr Calc Pharmacy 95.8; Estimated Glomerular Filt Rate > 60; Glucose Fasting 88 mg/dL (60-99); Potassium 3.7 mmol/L (3.3-5.1); Sodium 140 mmol/L (135-145); Total Protein 7.4 g/dL (6.5-8.0)
[2021-03-01 06:51] LABS: Glucose, Whole Blood 99 mg/dL (60-115)
[2021-03-01] MEDS: Albuterol Sulfate (0.083%) 2.5 MG/3 ML VIAL.NEB INHALE (07:14)
[2021-03-01] MEDS: Lactated Ringers 1,000 ML 100 ML IVCONT (07:16)
--- NOTE | 2021-03-01 07:20 | MHC.SHP ---
Pre-Procedural Eval Section A Date of Service: 03/01/21 The patient is an INPATIENT: No Changes since office visit: Yes Patient answered all questions; No Cold of Flu in the past 2 weeks, No New Medical Problems and No Changes in Medication The History & Physical has been completed within 30 days and I have reviewed it.: No Section B Chief Complaint: calculus of gallbladder Details of Present Illness: Gallstone pancreatitis Relevant Family History (Specify if Yes): No Relevant Social History: None Present Medications: see Short Stay Collaborative assessment Medical History: Significant History (MAURIZIO, Obesity, Acid reflux,DM2) History of Previous Operations: Relevant previous surgery/procedure and date(s) Allergies: Allergies Allergy/AdvReac Type Severity Reaction Status Date / Time No Known Allergies Allergy Verified 01/25/21 14:09 Review of Systems Sugical H&P ROS: Negative: Constitution, Cardiovascular, Respiratory, Neurological, Psychiatric, Hem-Onc, Allergic/Immunologic, Gastrointestinal, Genitourinary, Musculoskeletal, Integumentary, Endocrine and Eyes/Ears/Nose/Throat Exam Surgical H&P Exam: Normal: HEENT, Normal: Heart, Normal: Lungs, Normal: Extremities, Normal: Abdomen, Normal: Skin and Normal: Neurological Plan Diagnosis/Plan: Unchanged I have reviewed the history and physical and performed a pertinent physical examination on my patient. No changes have occurred unless specified.
--- NOTE | 2021-03-01 08:40 | W.PM.OPN ---
Operative Note Operative Note Date of Service: 03/01/21 Narrative: Preoperative diagnosis: Gallstone pancreatitis Postoperative diagnosis: Same Procedure: Laparoscopic cholecystectomy Surgeon: Eddy Ortiz MD Satellite Dish Repairer: MADELYN Manuel Anesthesia: General endotracheal Indications for procedure: 51-year-old male patient presenting with recent history of gallstone pancreatitis with gallstones within the gallbladder. Presents now for laparoscopic cholecystectomy. Operative findings: Cirrhotic appearing liver, minimally inflamed gallbladder with several small gallstones within. Specimen: gallbladder Estimated blood loss: 5 mL Complications: none Procedure details: Patient was brought to the OR and placed in a supine position. After administering general anesthesia the patient's abdomen was prepped with ChloraPrep and draped in a sterile fashion. Local anesthesia consisting of 0.5% Sensorcaine without epinephrine was infiltrated in a periumbilical region. A 5 mm incision was made above the umbilicus in a transverse fashion. The Veress needle was then inserted while elevating abdominal cavity with towel clips. After positive drop test the abdomen was insufflated to a pressure of 15 mm of mercury. The Veress needle was then removed and a 5 mm trocar inserted. The camera was inserted in the abdomen explored. A 12 mm trocar was then placed in the epigastrium and two 5 mm trocars placed in the right upper quadrant. The patient was placed in reverse Trendelenburg positioning and rotated to the left. The gallbladder was grasped with the fundus and retracted cephalad.. The infundibulum was then grasped and retracted away from the liver bed. The Dolphin dissected was then used to dissect the peritoneum off the infundibulum to reveal the junction with the cystic duct. Cystic artery was noted slightly medial and posterior to the cystic duct. After obtaining a critical view the cystic duct was doubly clipped and divided. The cystic artery was then doubly clipped and divided. The gallbladder was then dissected off the liver bed using electrocautery with an L hook. Hemostasis was assured all times using the electrocautery. When the gallbladder is completely dissected off the liver bed was placed in an Endo-Catch bag and brought out through the epigastric incision. The gallbladder was sent to pathology for further examination. The abdomen was then re-examined. The liver bed was irrigated and suctioned dry. No bleeding or bile leak could be identified. CO2 was then evacuated and all trocars removed. Fascia was closed at the epigastric incision using a [id number] 0 Polysorb suture. Skin was closed in all incisions using a subcuticular 4 0 Polysorb suture. Sterile dressings consisting of Steri-Strips, 2 x 2 gauze, and Tegaderm were then applied. The patient tolerated the procedure well. Sponge instrument and needle counts reported as correct. The patient was transferred to PACU in stable condition.
[2021-03-01] MEDS: oxyCODONE HCl Immed Release 5 MG TABLET 10 MG PO (09:31)
[2021-03-01] MEDS: fentaNYL citrate/PF 100 MCG/2 ML VIAL 25 MCG IVPUSH ×2 (09:33→09:38)
== END 2021-03-01 10:50 | disposition home or self-care (01) ==
PROVIDERS: Nurse Practitioner; Visit Provider Surgery
PROC: 0FT44ZZ Resection of Gallbladder, Percutaneous Endoscopic Approach (ICD-10-PCS; CPT 47562; principal; 2021-03-01 07:30)
DX: K80.10 Calculus of gallbladder with chronic cholecystitis without obstruction (principal); K85.10 Biliary acute pancreatitis without necrosis or infection; D64.9 Anemia, unspecified; G47.33 Obstructive sleep apnea (adult) (pediatric); I10 Essential (primary) hypertension; J45.909 Unspecified asthma, uncomplicated; E66.01 Morbid (severe) obesity due to excess calories; E11.42 Type 2 diabetes mellitus with diabetic polyneuropathy; Z79.4 Long term (current) use of insulin; Z79.82 Long term (current) use of aspirin; Z79.899 Other long term (current) drug therapy
CPT/HCPCS: 47562; 36415; 80053; 82947; 85027; 88304; 93005; 94640; J0131; J1100; J2250; J2370; J2405; J3010

== ENCOUNTER → 2021-03-08 15:02 | Outpatient (BNVA) | payer MEDICAID, SELFPAY | PROVIDERS: PCP Internal Medicine Geriatric Medicine; Visit Provider Registered Nurse Diabetes Educator | DX: E11.42 Type 2 diabetes mellitus with diabetic polyneuropathy (principal); Z79.4 Long term (current) use of insulin | CPT/HCPCS: 99211 ==

== ENCOUNTER → 2021-03-10 10:57 | Outpatient (BNVA) | payer MEDICAID, SELFPAY | PROVIDERS: PCP Internal Medicine Geriatric Medicine; Referring Provider Internal Medicine Geriatric Medicine; Visit Provider Surgery | DX: Z09 Encounter for follow-up examination after completed treatment for conditions other than malignant neoplasm (principal); Z87.19 Personal history of other diseases of the digestive system; Z90.49 Acquired absence of other specified parts of digestive tract | CPT/HCPCS: 99212 ==

== ENCOUNTER → 2021-03-29 14:50 | Outpatient (BNVA) | payer MEDICAID, SELFPAY | PROVIDERS: Visit Provider Nurse Practitioner Gerontology | DX: E11.42 Type 2 diabetes mellitus with diabetic polyneuropathy (principal); E66.09 Other obesity due to excess calories; I10 Essential (primary) hypertension; Z79.4 Long term (current) use of insulin; Z68.41 Body mass index [BMI] 40.0-44.9, adult | CPT/HCPCS: 82947; 83036; 99212 ==

== ENCOUNTER 2021-04-19 13:52 | Outpatient (REF) | payer MEDICAID, SELFPAY | END 2021-04-19 13:53 | disposition home or self-care (01) | LOC: HO.MDS 13:52 | PROVIDERS: Visit Provider Internal Medicine Pulmonary Disease | DX: J45.50 Severe persistent asthma, uncomplicated (principal); E11.9 Type 2 diabetes mellitus without complications | CPT/HCPCS: 96372; J0517 ==

== ENCOUNTER → 2021-04-20 14:04 | Outpatient (BNVA) | payer MEDICAID, SELFPAY | PROVIDERS: PCP Internal Medicine Geriatric Medicine; Visit Provider Dietitian, Registered | DX: E11.42 Type 2 diabetes mellitus with diabetic polyneuropathy (principal); Z79.4 Long term (current) use of insulin; E66.09 Other obesity due to excess calories; Z68.41 Body mass index [BMI] 40.0-44.9, adult; Z71.3 Dietary counseling and surveillance | CPT/HCPCS: 97803 ==

== ENCOUNTER → 2021-05-31 13:54 | Outpatient (BNVA) | payer MEDICAID, SELFPAY | PROVIDERS: PCP Internal Medicine Geriatric Medicine; Visit Provider Internal Medicine Pulmonary Disease | DX: J45.50 Severe persistent asthma, uncomplicated (principal); G47.33 Obstructive sleep apnea (adult) (pediatric); Z99.89 Dependence on other enabling machines and devices; Z91.09 Other allergy status, other than to drugs and biological substances | CPT/HCPCS: 99212 ==

== ENCOUNTER → 2021-06-01 14:17 | Outpatient (BNVA) | payer MEDICAID, SELFPAY | PROVIDERS: Referring Provider Internal Medicine Geriatric Medicine; Visit Provider Physician Assistant Surgical | DX: Z13.89 Encounter for screening for other disorder (principal) ==

== ENCOUNTER → 2021-06-06 12:53 | Outpatient (BNVA) | payer MEDICAID, SELFPAY | PROVIDERS: Referring Provider Internal Medicine Geriatric Medicine; Visit Provider Physician Assistant Surgical | DX: E66.01 Morbid (severe) obesity due to excess calories (principal); Z68.41 Body mass index [BMI] 40.0-44.9, adult | CPT/HCPCS: 99202 ==

== ENCOUNTER 2021-06-07 06:30 | Outpatient (REF) | payer MEDICAID, SELFPAY ==
[2021-06-07 06:56] LABS: MANUAL DIFF FLAG NO
[2021-06-07 07:21] LABS: Basophils Absolute Auto 0.1 X10*3/uL (0.0-0.2); Basophils Percent Auto 0.5 % (0-2); Hemoglobin 12.2 g/dl (14.0-18.0); Imm Gran Abs Auto 0.03 X10*3/uL (0.00-0.03); Imm Gran Pct Auto 0.3 % (0.0-0.4); Lymphocytes Absolute Auto 3.8 X10*3/uL (1.2-4.9); Lymphocytes Percent Auto 38.6 % (20-40); Mean Corpuscular HGB Conc 31.3 g/dl (31.0-36.0); Mean Corpuscular Hemoglobin 23.5 pg (27.0-33.0); Mean Corpuscular Volume 75.1 fL (80.0-98.0); Mean Platelet Volume 9.3 fL (9.4-12.4); Monocytes Absolute Auto 0.9 X10*3/uL (0.1-1.2); Monocytes Percent Auto 9.1 % (2-11); Neutrophils Absolute Auto 5.1 x10*3/uL (2.0-8.3); Neutrophils Percent Auto 51.5 % (45-73); Platelet Count 432 X10*3/uL (160-400); Red Blood Count 5.19 X10*6/uL (4.60-5.80); Red Cell Distribution Width 15.1 % (11.0-16.0); White Blood Count 9.9 X10*3/uL (4.8-10.8)
[2021-06-07 07:34] LABS: Estimated Average Glucose 171 mg/dL; Hemoglobin A1c % 7.6 %
[2021-06-07 07:44] LABS: Alanine Aminotransferase 39 U/L (0-40); Albumin Level 3.8 g/dL (3.5-5.0); Alkaline Phosphatase 179 U/L (39-117); Anion Gap 14 (12-20); Aspartate Amino Transferase 35 U/L (5-37); Bilirubin Total 0.3 mg/dL (0.0-1.0); Blood Urea Nitrogen 14 mg/dL (9-16); Calcium 9.3 mg/dL (8.4-10.2); Carbon Dioxide 25 mmol/L (22-29); Chloride 100 mmol/L (96-108); Cholesterol 138 mg/dL; Estimated Glomerular Filt Rate 60; Glucose Random 194 mg/dL (60-115); HDL Cholesterol 36 mg/dL; Iron 25 mcg/dL (45-160); LDL Cholesterol Calculated 45 mg/dl; Percent Iron Saturation 6 % (15-50); Sodium 135 mmol/L (135-145); Total Iron Binding Capacity 388 mcg/dL (228-428); Total Protein 7.3 g/dL (6.5-8.0); Triglycerides 287 mg/dL; Unsaturated Iron Binding 363 ug/dL
[2021-06-07 08:07] LABS: Free T4 (Free Thyroxine) 0.96 ng/dL (0.71-1.85)
[2021-06-07 08:09] LABS: Ferritin 12 ng/mL (20-250); Insulin 82 uU/mL (2-29); TSH reflex Free T4 2.34 uIU/mL (0.32-4.0); Vitamin D 25-OH Total 24.9 ng/mL (>30)
[2021-06-07 08:14] LABS: Folate 14.6 ng/mL (> or = 4.0); Vitamin B12 411 pg/mL (200-900)
[2021-06-07 09:11] LABS: Creatinine Urine 87.13 mg/dL; Microalbumin Urine < 5.0 mg/L
[2021-06-08 08:56] LABS: LDL Cholesterol Direct 53 mg/dL (<100)
[2021-06-09 14:37] LABS: Calcium (PTHI) 9.2 mg/dL (8.6-10.3); PTHI 119 pg/mL (16-77)
[2021-06-12 03:06] LABS: Zinc 69 mcg/dL (60-130)
[2021-06-13 17:22] LABS: Vitamin B1 12 nmol/L (8-30)
[2021-06-14 03:07] LABS: Vitamin A 51 mcg/dL (38-98)
== END 2021-06-07 06:31 | disposition home or self-care (01) ==
LOC: HO.LAB 06:30
PROVIDERS: Nurse Practitioner Gerontology; PCP Internal Medicine Geriatric Medicine; Visit Provider Physician Assistant Surgical
DX: E66.01 Morbid (severe) obesity due to excess calories (principal); E11.42 Type 2 diabetes mellitus with diabetic polyneuropathy; Z79.4 Long term (current) use of insulin
CPT/HCPCS: 36415; 80053; 80061; 82043; 82306; 82607; 82728; 82746; 83036; 83525; 83540; 83721; 83970; 84425; 84439; 84443; 84590; 84630; 85025; 86140

== ENCOUNTER 2021-06-13 09:26 | Outpatient (REF) | payer MEDICAID, SELFPAY ==
--- NOTE | ~2021-06-13 | XR_ITS ---
EXAMINATION: X-RAY RIGHT HAND X-RAY LEFT HAND CLINICAL INFORMATION: Trigger thumb, unspecified. COMPARISON: No similar priors. TECHNIQUE: 3 views of each hand were obtained. XR/XR hand LT min 3V FINDINGS/IMPRESSION: No acute fractures or malalignment. No significant degenerative changes. Mild diffuse nonspecific bilateral soft tissue swelling without discrete radiopaque foreign bodies.
--- NOTE | ~2021-06-13 | XR_ITS ---
EXAMINATION: XR CHEST CLINICAL INFORMATION: Morbid obesity COMPARISON: December 28, 2020 TECHNIQUE: 2 views of the chest were obtained. FINDINGS: No significant abnormality is noted involving the heart, lungs, mediastinum, bony thorax or soft tissues. XR/XR chest 2V IMPRESSION: No acute disease.
--- NOTE | ~2021-06-13 | XR_ITS ---
EXAMINATION: X-RAY RIGHT HAND X-RAY LEFT HAND CLINICAL INFORMATION: Trigger thumb, unspecified. COMPARISON: No similar priors. TECHNIQUE: 3 views of each hand were obtained. XR/XR hand RT min 3V FINDINGS/IMPRESSION: No acute fractures or malalignment. No significant degenerative changes. Mild diffuse nonspecific bilateral soft tissue swelling without discrete radiopaque foreign bodies.
--- NOTE | 2021-06-13 10:10 | ECG_ITS ---
Test Reason : E66.01 Blood Pressure : / mmHG Vent. Rate : 102 BPM Atrial Rate : 102 BPM P-R Int : 144 ms QRS Dur : 082 ms QT Int : 310 ms P-R-T Axes : 045 012 144 degrees QTc Int : 404 ms Sinus tachycardia Cannot rule out Inferior infarct (cited on or before 07-FEB-2019) T wave abnormality, consider lateral ischemia Abnormal ECG When compared with ECG of 01-MAR-2021 06:38, Questionable change in initial forces of Inferior leads T wave inversion now evident in Lateral leads Referred By: Hubert Grissom Electronically Signed By:MENDY MENDIOLA MD
== END 2021-06-13 09:27 | disposition home or self-care (01) ==
LOC: HO.XRAY 09:26
PROVIDERS: Absent Provider Internal Medicine Geriatric Medicine; PCP Internal Medicine Geriatric Medicine; Visit Provider Physician Assistant Surgical
DX: Z01.818 Encounter for other preprocedural examination (principal); E66.01 Morbid (severe) obesity due to excess calories; M65.311 Trigger thumb, right thumb; M65.312 Trigger thumb, left thumb
CPT/HCPCS: 71046; 73130; 93005

== ENCOUNTER 2021-06-14 13:38 | Outpatient (REF) | payer MEDICAID, SELFPAY | END 2021-06-14 13:39 | disposition home or self-care (01) | LOC: HO.MDS 13:38 | PROVIDERS: Visit Provider Internal Medicine Pulmonary Disease | DX: J45.50 Severe persistent asthma, uncomplicated (principal) | CPT/HCPCS: 96372; J0517 ==

== ENCOUNTER → 2021-06-15 09:22 | Day surgery (SDC) | payer MEDICAID, SELFPAY ==
--- NOTE | 2021-06-10 14:42 | MHC.SHP ---
Pre-Procedural Eval Section A Date of Service: 06/10/21 The patient is an INPATIENT: No The History & Physical has been completed within 30 days and I have reviewed it.: Yes Section B Chief Complaint: reflux Relevant Family History (Specify if Yes): Yes Relevant Social History: None Present Medications: None Medical History: No relevant PMH History of Previous Operations: No relevant previous surgery Allergies: Allergies Allergy/AdvReac Type Severity Reaction Status Date / Time No Known Allergies Allergy Verified 06/06/21 12:56 Review of Systems Sugical H&P ROS: Negative: Constitution, Cardiovascular, Respiratory, Neurological, Psychiatric, Hem-Onc, Allergic/Immunologic, Gastrointestinal, Genitourinary, Musculoskeletal, Integumentary, Endocrine and Eyes/Ears/Nose/Throat Exam Surgical H&P Exam: Normal: HEENT, Normal: Heart, Normal: Lungs, Normal: Extremities, Normal: Abdomen, Normal: Skin and Normal: Neurological Plan Diagnosis/Plan: Unchanged (Upper endoscopy to assess for esophagitis and perform H pylori testing without discontinuing the PPIs. Risks of bleeding and perforation, as well as the need for biopsies were discussed) I have reviewed the history and physical and performed a pertinent physical examination on my patient. No changes have occurred unless specified.
[2021-06-15 09:34] VITALS: BMI 44.0
[2021-06-15 09:38] VITALS: BP 140/86; PULSE 102; RESP 18; TEMP 36.2; O2SAT 98
[2021-06-15] MEDS: Lactated Ringers 1,000 ML 80 ML IVCONT (10:05)
--- NOTE | 2021-06-15 10:16 | PC.NURSE ---
dr. delacruz anti reviewing ekg. consulting with Dr. Akers. ? further ekg w/u. ? continue with EGD at this time
--- NOTE | 2021-06-15 10:23 | PC.NURSE ---
Dr Mcleod consulted Dr lambert d/t EKG reading. Per Dr Mcleod patient cancelled and to have further cardiac workup prior to proceeding with any procedures.
[2021-06-15 12:57] LABS: Glucose, Whole Blood 192 mg/dL (60-115)
== END ==
PROVIDERS: PCP Internal Medicine Geriatric Medicine; Visit Provider Surgery
DX: K21.9 Gastro-esophageal reflux disease without esophagitis (principal); Z53.8 Procedure and treatment not carried out for other reasons; I10 Essential (primary) hypertension; E11.42 Type 2 diabetes mellitus with diabetic polyneuropathy; Z79.4 Long term (current) use of insulin; Z79.82 Long term (current) use of aspirin; E66.01 Morbid (severe) obesity due to excess calories; Z68.41 Body mass index [BMI] 40.0-44.9, adult
CPT/HCPCS: 82947

== ENCOUNTER → 2021-06-22 14:00 | Outpatient (BNVA) | payer OTHER, SELFPAY | PROVIDERS: PCP Internal Medicine Geriatric Medicine; Visit Provider Counselor Mental Health | DX: F32.2 Major depressive disorder, single episode, severe without psychotic features (principal) | CPT/HCPCS: 90791 ==

== ENCOUNTER → 2021-06-28 08:15 | Outpatient (BNVA) | payer MEDICAID, SELFPAY | PROVIDERS: PCP Internal Medicine Geriatric Medicine; Referring Provider Internal Medicine Geriatric Medicine; Visit Provider Dietitian, Registered | DX: E66.01 Morbid (severe) obesity due to excess calories (principal); E11.9 Type 2 diabetes mellitus without complications; Z71.3 Dietary counseling and surveillance | CPT/HCPCS: 97802 ==

== ENCOUNTER → 2021-07-04 14:07 | Outpatient (BNVA) | payer MEDICAID, SELFPAY | PROVIDERS: PCP Internal Medicine Geriatric Medicine; Visit Provider Registered Nurse Diabetes Educator | DX: E11.42 Type 2 diabetes mellitus with diabetic polyneuropathy (principal); Z79.4 Long term (current) use of insulin | CPT/HCPCS: 99211 ==

== ENCOUNTER 2021-07-17 09:51 | Outpatient (REF) | payer MEDICAID, SELFPAY ==
--- NOTE | ~2021-07-17 | FL_ITS ---
EXAMINATION: XR FLUOROSCOPY UPPER GI WITH AIR CLINICAL INFORMATION: Morbid/severe obesity due to excess calories. COMPARISON: None TECHNIQUE: Routine upper GI air-contrast study is performed. FINDINGS: Following oral administration of thick barium and effervescent granules, there is normal propagation of bolus from the oral cavity through the pharynx and esophagus into the stomach without any evidence of obstruction, narrowing or stricture. The course, caliber and peristalsis of the stomach, duodenal bowel and the sweep are normal. There is mild gastroesophageal reflux without hiatal hernia. The mucosal pattern of the stomach and the duodenum is normal. FLUOROSCOPY TIME: 1.6 minutes DOSE AREA PRODUCT: 446 uGy-m2 (microgray-meter squared) FL/FL upper GI w air IMPRESSION: Mild gastroesophageal reflux without hiatal hernia.
--- NOTE | ~2021-07-17 | US_ITS ---
EXAMINATION: US COMPLETE ABDOMEN WITH LIVER ELASTOGRAPHY CLINICAL INFORMATION: Obesity COMPARISON: Previous exam most recent December 2020 TECHNIQUE: Real-time imaging of the abdominal viscera. Noninvasive ultrasound liver fibrosis assessment is performed using Vanessa ElastPQ point quantification shear wave elastography (2D-SWE) with a C5-2 MHz transducer. Multiple elastography samples are obtained. FINDINGS: PANCREAS: Normal. ABDOMINAL AORTA: The proximal, middle, and distal aortic segments are normal in caliber. INFERIOR VENA CAVA: Visualized portions are normal. LIVER: The liver is enlarged. Liver echotexture is increased and slightly heterogeneous. The contour of the liver is slightly irregular questionable for mild cirrhotic change. No focal lesion or intrahepatic biliary duct dilatation. The right lobe measures 25 cm in length. The left lobe measures 13 cm in length. Portal flow is normal/hepatopedal Shear wave liver elastography median stiffness is 1.6 m/s (reference: normal median stiffness is 1.3 m/s or less). IQR/median stiffness to assess sampling precision is 0.32 (reference: good quality data set is IQR/median stiffness of 0.15 or less). GALLBLADDER: Surgically removed COMMON BILE DUCT: Normal in caliber measuring 0.5 cm in diameter. RIGHT KIDNEY: Normal. No hydronephrosis. No renal calculi or focal parenchymal lesions. The kidney measures 14 cm in maximum dimension. LEFT KIDNEY: Normal. No hydronephrosis. No renal calculi or focal parenchymal lesions. The kidney measures 14 cm in maximum dimension. SPLEEN: Normal. The spleen measures 13 cm in maximum dimension. FREE FLUID: None. US/US abdomen comp w elastography IMPRESSION: 1. Impression: Enlarged slightly heterogeneous echogenic liver. Slight nodular contour of the liver questionable for mild cirrhotic change. 2. Liver elastography: Limited due to sampling error. REFERENCE: Society of Radiologists in Ultrasound Liver Stiffness Thresholds (2020): LIVER STIFFNESS THRESHOLDS: *Liver Stiffness equal or less than 1.3 m/s: High probability of being normal. *Liver Stiffness less than 1.7 m/s: In the absence of other known clinical signs, rules out compensated advanced chronic liver disease. *Liver Stiffness 1.7-2.1 m/s: Suggestive of compensated advanced chronic liver disease but need further test for confirmation. *Liver Stiffness over 2.1 m/s: Rules in compensated advanced chronic liver disease. *Liver Stiffness over 2.4 m/s: Suggestive of clinically significant portal hypertension. QUALITY OF DATA SET: *IQR/Median value equal or less than 0.15 implies a quality data set. *IQR/Median value over 0.15 implies a poor quality data set. SIGNIFICANT CHANGE FROM PRIOR EXAM: Significant change if liver stiffness measurement is 10% or greater from prior exam. OTHER CONSIDERATIONS: The stage of liver fibrosis may be overestimated in the setting of acute hepatitis, liver inflammation, elevated liver function tests, hepatic vascular congestion, obstructive cholestasis, non-fasting state, and infiltrative diseases such as amyloidosis and lymphoma. In some patients with NAFLD, the liver stiffness thresholds for compensated advanced chronic liver disease may be lower. In causes other than viral hepatitis and NAFLD, liver stiffness thresholds are not well established.
== END 2021-07-17 09:52 | disposition home or self-care (01) ==
LOC: HO.XRAY 09:51
PROVIDERS: PCP Internal Medicine Geriatric Medicine; Visit Provider Surgery
DX: Z01.818 Encounter for other preprocedural examination (principal); E66.01 Morbid (severe) obesity due to excess calories; K21.9 Gastro-esophageal reflux disease without esophagitis
CPT/HCPCS: 74246; 76705; 76981

== ENCOUNTER → 2021-07-20 13:57 | Outpatient (BNVA) | payer MEDICAID, SELFPAY | PROVIDERS: PCP Internal Medicine Geriatric Medicine; Visit Provider Internal Medicine Endocrinology, Diabetes & Metabolism | DX: E11.9 Type 2 diabetes mellitus without complications (principal); Z79.4 Long term (current) use of insulin; Z79.84 Long term (current) use of oral hypoglycemic drugs | CPT/HCPCS: 82947; 99212 ==

== ENCOUNTER 2021-08-11 13:21 | Outpatient (REF) | payer MEDICAID, SELFPAY | END 2021-08-11 13:22 | disposition home or self-care (01) | LOC: HO.MDS 13:21 | PROVIDERS: Visit Provider Internal Medicine Pulmonary Disease | DX: J45.50 Severe persistent asthma, uncomplicated (principal) | CPT/HCPCS: 96372; J0517 ==

== ENCOUNTER → 2021-08-18 09:20 | Outpatient (BNVA) | payer MEDICAID, SELFPAY | PROVIDERS: PCP Internal Medicine Geriatric Medicine; Visit Provider Physician Assistant Surgical | DX: E66.01 Morbid (severe) obesity due to excess calories (principal); Z68.41 Body mass index [BMI] 40.0-44.9, adult; R94.31 Abnormal electrocardiogram [ECG] [EKG] | CPT/HCPCS: 99212 ==

== ENCOUNTER → 2021-08-21 13:13 | Outpatient (REF) | payer MEDICAID, SELFPAY ==
--- NOTE | 2021-08-21 13:20 | CA_ITS ---
Transthoracic Echocardiogram Patient (Last, First, Middle): Manjit May A Gender: Male Date of : 1970 Age: 51 Procedure Date: 08/21/2021 Procedure Type: Transthoracic Echocardiogram Location: OP Height: 167.64 cm Weight: 124.29 kg BSA: 2.29 m2 Heart Rate: bpm BP: 138 / 85 mmHg Production Line: HARDEEP Referring MD: Curtis Mendoza MD Symptoms: R94.31 - Abnormal electrocardiogram [ECG] [EKG] Study Quality: Fair/Contrast ECG Rhythm: Sinus Conclusions: - The left ventricular systolic function is normal. The calculated ejection fraction is 63% by biplane method. - No obvious valvular pathology seen on this study. Findings Procedure Information Contrast agent, definity, is being given per protocol without apparent complications. Left Ventricle Normal left ventricular cavity size. There is moderately increased left ventricular wall thickness. The left ventricular systolic function is normal. The calculated ejection fraction is 63% by biplane method. There is no evidence of regional wall motion abnormalities. E/E prime ratio is >15, consistent with elevated filling pressures. Evidence suggests grade I (mild) diastolic dysfunction. Right Ventricle Normal right ventricular cavity size and systolic function. Atria Both atria are normal in size. Aortic Valve There is a normal trileaflet aortic valve. There is mild calcification of the aortic valve. There is no aortic valve stenosis. There is no aortic valve regurgitation. Mitral Valve The mitral valve was not well visualized. Likely normal mitral valve structure and function. Pulmonic Valve The pulmonic valve is likely normal. Tricuspid Valve There is trace tricuspid valve regurgitation. There is no evidence of pulmonary hypertension. Great Vessels The aortic annulus, sinuses of valsalva, and asc aorta are normal in size. Venous The inferior vena cava is normal in size and collapses greater than 50% with inspiration. Pericardium/Pleural Prominent epicardial adipose tissue noted. There is no evidence of pericardial effusion. Prior Study Comparison No significant change compared to prior study dated: 02/09/2019. Recommendations, Care & Conclusions No obvious valvular pathology seen on this study. Measurements 2D Linear Measurements IVSd: 1.71 0.6-0.9/0.6-1.0 cm LVIDd: 3.86 3.9-5.3/4.2-5.9 cm LVIDd Index: 1.69 2.4-3.2/2.2-3.1 cm/m2 LVIDs: 2.52 2.0-3.6 cm LVPWd: 1.71 0.7-1.1 cm LA Diam: 3.90 2.7-3.8/3.0-4.0 cm LAIDs Index: 1.70 1.5-2.3 cm/m2 LV Mass: 341.45 67-162/88-224 g LV Mass Index: 149.10 43-95/49-115 g/m2 LVOT Diam: 2.10 3.0+(-)1.3 cm 2D Systolic Function EF 4C: 68.50 >55% EF 2C: 56.30 >55% EF BiP: 62.90 >55% Mitral Valve MV Pk E: 0.96 MV PK A: 1.29 MV Decel Time: 312.00 E/A: 0.70 E'Lateral: 5.33 E'Medial: 4.46 E/E' Med: 21.40 E/E' Lat: 17.90 PHT: 91.00 MVA PHT: 2.42 Decel Mchenry: 3.06 Aortic Valve AoV Pk Damian: 1.74 AoV Mn Damian: 1.18 AoV VTI: 0.28 AoV Pk Grad: 12.00 Aov Mn Grad: 6.00 ASHOK Cont.VTI: 2.78 LVOT LVOT Pk Damian: 1.28 LVOT Mn Damian: 0.82 LVOT VTI: 0.22 LVOT Pk Grad: 7.00 LVOT Mn Grad: 3.00 LVOT Diam: 2.10 LVOT Area: 3.46 Diastolic Function MV Pk E: 0.96 MV Pk A: 1.29 E/A: 0.70 E'Medial: 4.46 E/E' Med: 21.40 E' Laterial: 5.33 E/E' Lat: 17.90 Right Ventricle TAPSE (mm): 22.41 TVS' Damian: 12.40 Tricuspid Valve RA Press: 3.00 Great Vessels Aorta Sinus of Valsalva: 3.39 2.0-3.5 cm Ao Asc: 3.70 2.1-3.4 cm Updated in Other Vendor System with Status of Final David Licona MD electronically signed on 08/22/2021 11:53:14 AM with status of Final
== END ==
LOC: HO.CARD 13:13
PROVIDERS: PCP Internal Medicine Geriatric Medicine; Visit Provider Internal Medicine Geriatric Medicine
DX: R94.31 Abnormal electrocardiogram [ECG] [EKG] (principal); I51.7 Cardiomegaly; I51.89 Other ill-defined heart diseases; R60.0 Localized edema; R63.5 Abnormal weight gain
CPT/HCPCS: 93306; Q9957

== ENCOUNTER → 2021-08-23 13:17 | Outpatient (BNVA) | payer MEDICAID, SELFPAY | PROVIDERS: PCP Internal Medicine Geriatric Medicine; Visit Provider Dietitian, Registered | DX: E66.01 Morbid (severe) obesity due to excess calories (principal); Z71.3 Dietary counseling and surveillance | CPT/HCPCS: 97803 ==

== ENCOUNTER 2021-09-08 13:16 | Outpatient (REF) | payer MEDICAID, SELFPAY | END 2021-09-08 13:17 | disposition home or self-care (01) | LOC: HO.MDS 13:16 | PROVIDERS: PCP Internal Medicine Geriatric Medicine; Visit Provider Internal Medicine Pulmonary Disease | DX: J45.50 Severe persistent asthma, uncomplicated (principal) | CPT/HCPCS: 96372; J0517 ==

== ENCOUNTER → 2021-09-12 13:58 | Outpatient (BNVA) | payer MEDICAID, SELFPAY | PROVIDERS: PCP Internal Medicine Geriatric Medicine; Visit Provider Physician Assistant Surgical | DX: E66.01 Morbid (severe) obesity due to excess calories (principal); Z68.41 Body mass index [BMI] 40.0-44.9, adult | CPT/HCPCS: 99212 ==

== ENCOUNTER → 2021-09-14 13:00 | Outpatient (BNVA) | payer OTHER, MEDICAID, SELFPAY | PROVIDERS: PCP Physician Assistant Surgical; Visit Provider Counselor Mental Health | DX: F32.2 Major depressive disorder, single episode, severe without psychotic features (principal); E66.09 Other obesity due to excess calories | CPT/HCPCS: 90832 ==

== ENCOUNTER → 2021-09-18 13:35 | Outpatient (BNVA) | payer MEDICAID, SELFPAY | PROVIDERS: PCP Physician Assistant Surgical; Referring Provider Physician Assistant Surgical; Visit Provider Dietitian, Registered | DX: E66.01 Morbid (severe) obesity due to excess calories (principal) | CPT/HCPCS: 97803 ==

== ENCOUNTER 2021-11-03 14:02 | Outpatient (REF) | payer MEDICAID, SELFPAY | END 2021-11-03 14:03 | disposition home or self-care (01) | LOC: HO.MDS 14:02 | PROVIDERS: Visit Provider Internal Medicine Pulmonary Disease | DX: J45.50 Severe persistent asthma, uncomplicated (principal) | CPT/HCPCS: 96372; J0517 ==

== ENCOUNTER → 2021-11-29 14:45 | Outpatient (BNVA) | payer MEDICAID, SELFPAY | PROVIDERS: PCP Internal Medicine Geriatric Medicine; Visit Provider Internal Medicine Pulmonary Disease | DX: J45.50 Severe persistent asthma, uncomplicated (principal); G47.33 Obstructive sleep apnea (adult) (pediatric); Z91.09 Other allergy status, other than to drugs and biological substances; Z79.899 Other long term (current) drug therapy; Z99.89 Dependence on other enabling machines and devices | CPT/HCPCS: 99212 ==

== ENCOUNTER → 2022-01-11 13:29 | Outpatient (BNVA) | payer MEDICAID, SELFPAY | PROVIDERS: PCP Internal Medicine Geriatric Medicine; Visit Provider Internal Medicine Endocrinology, Diabetes & Metabolism | DX: E11.9 Type 2 diabetes mellitus without complications (principal); Z79.84 Long term (current) use of oral hypoglycemic drugs | CPT/HCPCS: 82947; 83036; 99212 ==

== ENCOUNTER 2022-01-15 14:35 | Outpatient (REF) | payer MEDICAID, SELFPAY | END 2022-01-15 14:36 | disposition home or self-care (01) | LOC: HO.MDS 14:35 | PROVIDERS: Visit Provider Internal Medicine Pulmonary Disease | DX: J45.50 Severe persistent asthma, uncomplicated (principal) | CPT/HCPCS: 96372; J0517 ==

== ENCOUNTER → 2022-02-06 12:30 | Outpatient (BNVA) | payer MEDICAID, SELFPAY | PROVIDERS: PCP Internal Medicine Geriatric Medicine; Visit Provider Registered Nurse Diabetes Educator | DX: E11.42 Type 2 diabetes mellitus with diabetic polyneuropathy (principal); E66.01 Morbid (severe) obesity due to excess calories; Z79.4 Long term (current) use of insulin | CPT/HCPCS: 99211 ==

== ENCOUNTER → 2022-03-06 12:19 | Outpatient (BNVA) | payer MEDICAID, SELFPAY | PROVIDERS: PCP Internal Medicine Geriatric Medicine; Visit Provider Registered Nurse Diabetes Educator | DX: E11.42 Type 2 diabetes mellitus with diabetic polyneuropathy (principal); Z79.4 Long term (current) use of insulin | CPT/HCPCS: 99211 ==

== ENCOUNTER 2022-04-03 13:01 | Outpatient (REF) | payer MEDICAID, SELFPAY | END 2022-04-03 13:02 | disposition home or self-care (01) | LOC: HO.MDS 13:01 | PROVIDERS: Visit Provider Internal Medicine Pulmonary Disease | DX: J45.50 Severe persistent asthma, uncomplicated (principal) | CPT/HCPCS: 96372; J0517 ==

== ENCOUNTER → 2022-05-01 14:07 | Outpatient (BNVA) | payer MEDICAID, SELFPAY | PROVIDERS: PCP Internal Medicine Geriatric Medicine; Visit Provider Internal Medicine Endocrinology, Diabetes & Metabolism | DX: E11.9 Type 2 diabetes mellitus without complications (principal) | CPT/HCPCS: 82947; 83036; 99212 ==

== ENCOUNTER 2022-05-29 14:01 | Outpatient (REF) | payer MEDICAID, SELFPAY | END 2022-05-29 14:02 | disposition home or self-care (01) | LOC: HO.MDS 14:01 | PROVIDERS: Visit Provider Internal Medicine Pulmonary Disease | DX: J45.50 Severe persistent asthma, uncomplicated (principal) | CPT/HCPCS: 96372; J0517 ==

== ENCOUNTER → 2022-06-28 10:04 | Outpatient (BNVA) | payer MEDICAID, SELFPAY | PROVIDERS: PCP Internal Medicine Geriatric Medicine; Visit Provider Registered Nurse Diabetes Educator | DX: E11.42 Type 2 diabetes mellitus with diabetic polyneuropathy (principal); Z79.4 Long term (current) use of insulin | CPT/HCPCS: 99211 ==

== ENCOUNTER 2022-07-25 14:07 | Outpatient (REF) | payer MEDICAID, SELFPAY | END 2022-07-25 14:08 | disposition home or self-care (01) | LOC: HO.MDS 14:07 | PROVIDERS: Visit Provider Internal Medicine Pulmonary Disease | DX: J45.50 Severe persistent asthma, uncomplicated (principal) | CPT/HCPCS: 96372; J0517 ==

== ENCOUNTER → 2022-08-07 14:49 | Outpatient (BNVA) | payer MEDICAID, SELFPAY | PROVIDERS: PCP Internal Medicine Geriatric Medicine; Visit Provider Internal Medicine Endocrinology, Diabetes & Metabolism | DX: E11.9 Type 2 diabetes mellitus without complications (principal) | CPT/HCPCS: 82947; 83036; 99212 ==

== ENCOUNTER 2022-09-25 13:54 | Outpatient (REF) | payer MEDICAID, SELFPAY | END 2022-09-25 13:55 | disposition home or self-care (01) | LOC: HO.MDS 13:54 | PROVIDERS: Visit Provider Internal Medicine Pulmonary Disease | DX: J45.50 Severe persistent asthma, uncomplicated (principal) | CPT/HCPCS: 96372; J0517 ==

== ENCOUNTER 2022-10-10 10:52 | Emergency (ER) | payer MEDICAID, SELFPAY ==
--- NOTE | 2022-10-10 10:57 | ED.GENADULT ---
HPI - General Adult General Chief complaint: Neck Pain/Injury Stated complaint: Pain/numbness in fingers, neck pain per EMS Time Seen by Provider: 10/10/22 10:57 Source: patient, EMS and old records reviewed Mode of arrival: EMS Limitations: no limitations History of Present Illness HPI narrative: Patient is a 52 year old assigned male at with a history of diabetes, HTN, asthma, and neuropathy presenting to the emergency department today with bilateral upper extremity numbness / tingling and neck pain. Patient states that over the last day or so he has noticed worsening numbness and tingling in his finger tips as well as worsening neck pain. Patient denies any dizziness, lightheadedness, abdominal pain, nausea, vomiting, fever, chills, blurry vision, double vision, loss of vision, chest pain, difficulty breathing, shortness of breath, back pain, night sweats, pain with urination, increased urinary frequency, increased urinary urgency, blood in his urine or stool, syncope or a near syncopal episode, recent trauma or falls, bowel incontinence, bladder incontinence, bowel retention, bladder retention, or any other complaints at this time. Onset (ago): day(s) Location: neck Severity: mild Severity scale (1-10): 3 Relieving factors: none Exacerbating factors: none Associated symptoms: denies other symptoms Treatments prior to arrival: none Related Data Home Medications Medication Instructions Recorded Confirmed acetaminophen 500 mg tablet 1,000 mg PO Q6H PRN 05/24/20 05/01/22 aspirin 81 mg tablet,delayed 81 mg PO DAILY 05/24/20 05/01/22 release (Adult Low Dose Aspirin) glimepiride 2 mg tablet 2 mg PO DAILY 05/24/20 05/01/22 ketoconazole 2 % topical gel 1 appl topical DAILY 05/24/20 05/01/22 lisinopril 40 mg tablet 40 mg PO DAILY 05/24/20 05/01/22 metformin 1,000 mg tablet 1,000 mg PO BID 05/24/20 05/01/22 pravastatin 20 mg tablet 20 mg PO BEDTIME 05/24/20 05/01/22 albuterol sulfate 2.5 mg/3 mL 2.5 mg inhalation Q4-6H PRN 06/07/20 05/01/22 (0.083 %) solution for nebulization albuterol sulfate 90 mcg/actuation 2 puff inhalation Q6H PRN 06/07/20 05/01/22 aerosol inhaler (ProAir HFA) amitriptyline 10 mg tablet 10 mg PO BEDTIME 11/30/20 05/01/22 blood sugar diagnostic (FreeStyle 11/30/20 05/01/22 Lite Strips) blood-glucose meter (FreeStyle 11/30/20 05/01/22 Lite Meter kit) tadalafil 10 mg tablet (Cialis) 20 mg PO DAILY PRN 11/30/20 05/01/22 omeprazole 20 mg capsule,delayed 20 mg PO DAILY 12/14/20 05/01/22 release furosemide 40 mg tablet 80 mg PO BID 08/18/21 05/01/22 ferrous sulfate 325 mg (65 mg 325 mg PO Q OTHER DAY 01/11/22 05/01/22 iron) tablet (FeroSul) gabapentin 300 mg capsule 300 mg PO BEDTIME 01/11/22 05/01/22 amlodipine 10 mg tablet 10 mg PO DAILY 05/01/22 05/01/22 insulin syringe-needle U-100 1 mL #100 ea 05/01/22 05/01/22 30 gauge x 09/09 lancets [facility] 05/01/22 Lancets) Previous Rx's Medication Instructions Recorded fluticasone 250 mcg-salmeterol 50 1 inh inhalation BID #60 ea 04/25/20 mcg/dose blistr powdr for inhalation (Wixela Inhub) cholecalciferol (vitamin D3) 125 125 mcg PO DAILY #30 caps 06/07/21 mcg (5,000 unit) capsule iron,carbonyl 65 mg-vitamin C 125 1 tab PO DAILY #30 tabs 06/07/21 mg tablet,delayed release (Vitron-C) insulin glargine 100 unit/mL 80 unit (0.8 mL) subcut DAILY #30 04/30/22 subcutaneous solution (Lantus mL U-100 Insulin) flash glucose scanning reader #1 ea 05/01/22 (FreeStyle Monty 2 [place]) flash glucose sensor (FreeStyle #2 ea 10/09/22 Monty 2 Sensor kit) cyclobenzaprine 5 mg tablet 5 mg PO TID PRN muscle spasm 7 10/10/22 days #21 tabs prednisone 20 mg tablet 20 mg PO DAILY 7 days #7 tabs 10/10/22 Allergies Allergy/AdvReac Type Severity Reaction Status Date / Time pollen Allergy Mild ichy eyes Uncoded 10/10/22 11:02 Review of Systems Constitutional: Constitutional: Reports no additional constitutional complaints, Denies chills, Denies fever(s) and Denies night sweats Eyes: Eyes: Reports no additional eye complaints, Denies blurry vision, Denies change in vision, Denies diplopia, Denies eye discharge, Denies loss of vision and Denies eye pain ENT: Denies dizziness and Reports neck pain Cardiovascular: Cardiovascular: Reports no additional cardiovascular complaints, Denies chest pain, Denies lightheadedness, Denies Loss of Consciousness and Denies dyspnea Respiratory: Respiratory: Reports no additional respiratory complaints and Denies dyspnea Gastrointestinal: Gastrointestinal: Reports no additional gastrointestinal complaints, Denies abdominal pain, Denies melena, Denies hematochezia, Denies change in bowel habits and Denies change in stool character Genitourinary: Genitourinary: Reports no additional male genitourinary complaints, Denies hematuria, Denies oliguria, Denies difficulty urinating, Denies dysuria, Denies urinary frequency, Denies urinary hesitancy, Denies urinary incontinence and Denies urinary urgency Musculoskeletal: Musculoskeletal: Reports no additional musculoskeletal complaints, Reports neck pain, Reports numbness and Reports tingling Neurologic: Denies dizziness, Denies loss of vision, Reports numbness and Reports tingling Psychiatric: Psychiatric: Reports no additional psychiatric complaints Endocrine: Endocrine: Reports no additional endocrine complaints Hematologic/Lymphatic: Hematologic/Lymphatic: Reports no additional hematologic/lymphatic complaints Allergic/Immunologic: Allergic/Immunologic: Reports no additional allergic/immunologic complaints [facility] Past Medical History Attestation statement: The following information was validated with the patient. Source: old records reviewed and nursing notes reviewed Medical History Abnormal ECG Acid reflux Anemia Apnea, sleep Asthma Degeneration of L4-L5 intervertebral disc Diabetes Dyspnea on exertion Elevated alkaline phosphatase measurement HTN (hypertension) Hx of pancreatitis Morbid obesity Obesity due to excess calories Obstructive sleep apnea MAURIZIO on CPAP Type 2 diabetes mellitus with diabetic polyneuropathy Surgical History History of back surgery Hx of cholecystectomy Family History Family History Father Diabetes Hearing loss Mother CVD (cardiovascular disease) Thyroid condition Paternal Grandmother Diabetes Paternal Aunt Diabetes Sister No problems noted. Sister No problems noted. Sister Asthma Brother Arthritis Fluid retention Social History Social History Household Members: Significant Other Alcohol intake: never Patient Tobacco Use Status: Never used Tobacco Advance Directives: Yes Advance Directives on File: Yes Advance Directives Date on File: 06/09/20 Current occupational status: unemployed Physical Exam ED Vital Signs: Vital Signs - 24 hr 10/10/22 11:05 Temperature 97.3 F Pulse Rate 79 Respiratory Rate 16 Blood Pressure 132/71 Pulse Oximetry 97 Oxygen Delivery Method Room Air BMI result Body Mass Index 43.4 Const General: cooperative, no acute distress, alert and awake Nutritional Appearance: well nourished Orientation/consciousness: patient oriented x3 Limitations: no limitations HENMT Head: Yes normal to inspection and Yes atraumatic Ears: hearing grossly normal bilaterally and external ears normal General nose exam: Normal external nose present, no nasal discharge noted and no epistaxis Face and sinus: Yes normal facial exam, No abrasion and No laceration Mouth: Normal oral and palatal mucosa present, no drooling and no muffled voice Eyes General: appearance normal, both eyes and all related structures Periorbital: periorbital findings normal Eyelids: Yes eyelids normal Conjunctivae: conjunctivae normal Pupils: Equal, round and reactive pupils present EOM: EOMs intact bilaterally Neck Neck: Yes normal visual inspection, Yes full ROM and Yes no lymphadenopathy Chest Chest palpation & inspection: normal inspection of the chest Resp Effort & Inspection: normal respiratory effort and able to speak in complete sentences GI Inspection: Yes normal to inspection Neuro General: patient oriented x3 and moves all extremities Cranial nerves: Yes Equal, round and reactive pupils present Cognition (Neuro): normal cognition Motor exam (neuro): 5/5 motor strength present throughout Sensory Exam: Normal double simultaneous stimulation for sensation Coordination: [id number] test normal Extrem General: Yes normal to inspection, Yes full ROM and Yes capillary refill normal Psych Appearance: grossly normal Mental Status: mental status grossly normal Affect: normal affect Attitude: cooperative Thought process: Normal thought process present Thought content: Normal thought content present Insight: Good insight present (Psych) NIH Stroke Scale Internal: Initial- Upon Arrival Time: 10:57 Level of Consciousness: Alert Level of Consciousness Questions: Answers both questions correctly Level of Consciousness Commands: Performs both tasks correctly Best Gaze: Normal Visual: No visual loss Facial Palsy: Normal Motor Arm (Right): No drift Motor Arm (Left): No drift Motor Leg (Right): No drift Motor Leg (Left): No drift Limb Ataxia: Absent Sensory: Normal Best Language: No aphasia Dysarthia: Normal Extinction and Inattention: No abnormality Score: 0 Medications Administered Discontinued Medications Generic Name Dose Route Start Last Admin Trade Name Ciscoq PRN Reason Stop Dose Admin Cyclobenzaprine HCl 10 mg 10/10/22 11:04 10/10/22 11:27 Cyclobenzaprine Hcl 10 Mg Tablet PO 10/10/22 11:05 10 mg ONCE ONE Administration Prednisone 20 mg 10/10/22 11:04 10/10/22 11:27 Prednisone 20 Mg Tablet PO 10/10/22 11:05 20 mg ONCE ONE Administration Medical Decision Making Medical Decision Making [facility] Narrative: Patient is a 52 year old assigned male at with a history of diabetes, HTN, asthma, and neuropathy presenting to the emergency department today with neck pain and bilateral upper extremity paresthesias. Patient's physical exam was unremarkable, including a normal neurological examination. Patient's blood work was unremarkable. I explained my physical exam findings as well as all test results to the patient. I answered all questions asked by the patient. Patient received prednisone and flexeril which he stated helped his symptoms significantly. I stressed the importance of the patient taking his medication as prescribed. I stressed the importance of the patient following up with his primary care provider and a operations and maintenance specialist. I stressed the importance of the patient returning to the emergency department immediately if his symptoms were to worsen or if he were to develop any dizziness, shortness of breath, difficulty breathing, chest pain, blurry vision, loss of vision, nausea, vomiting, abdominal pain, fever, chills, back pain, or any other complaints. Patient verbalized agreement and understanding with this treatment plan and discharge. Differential Diagnosis Differential Diagnoses: The differential diagnosis associated with the presentation includes Paresthesias Cervical radiculopathy Neuropathy Admission/Observation Consideration of admission/observation: Escalation of care including admission/observation considered Patient would have been admitted to the hospital had his work up had any findings where hospital admission was appropriate and his clinical presentation warranted hospital admission. Lab Data MDM Lab Attestation statement: I reviewed the patient's lab results. My interpretation of these studies and their corresponding values is that they are grossly normal. 10/10/22 12:04 10/10/22 11:41 Labs: Lab Results 10/10/22 10/10/22 Range/Units 11:41 12:04 WBC 8.9 (4.8-10.8) X10*3/uL RBC 4.31 L (4.60-5.80) X10*6/uL Hgb 11.8 L (14.0-18.0) g/dl Hct 36.2 L (42.0-52.0) % MCV 84.0 (80.0-98.0) fL MCH 27.4 (27.0-33.0) pg MCHC 32.6 (31.0-36.0) g/dl RDW 13.6 (11.0-16.0) % Plt Count 318 D (160-400) X10*3/uL MPV 9.0 L (9.4-12.4) fL Immature Gran % (Auto) 0.3 (0.0-0.4) % Neut % (Auto) 71.0 (45-73) % Lymph % (Auto) 22.7 (20-40) % [place] % (Auto) 5.8 (2-11) % Eos % (Auto) 0.0 (0-4) % Baso % (Auto) 0.2 (0-2) % Lymph # (Auto) 2.0 (1.2-4.9) X10*3/uL [place] # (Auto) 0.5 (0.1-1.2) X10*3/uL Eos # (Auto) 0.0 (0.0-0.4) X10*3/uL Baso # (Auto) 0.0 (0.0-0.2) X10*3/uL Abs Immat Gran (auto) 0.03 (0.00-0.03) X10*3/uL Absolute Neuts (auto) 6.3 (2.0-8.3) x10*3/uL Absolute Nucleated RBC 0.000 (0.0-0.012) X10*3/uL Nucleated RBC % (auto) 0.0 (0.0-0.2) /100WBC Sodium 141 (135-145) mmol/L Potassium 3.4 (3.3-5.1) mmol/L Chloride 103 (96-108) mmol/L Carbon Dioxide 28 (22-29) mmol/L Anion Gap 13 (12-20) BUN 15 (9-16) mg/dL Creatinine 1.09 (0.5-1.4) mg/dL Estim Creat Clear Calc 97.6 Estimated GFR > 60 Random Glucose 105 (60-115) mg/dL Calcium 8.4 D (8.4-10.2) mg/dL Total Bilirubin 0.4 (0.0-1.0) mg/dL AST 42 H (5-37) U/L ALT 27 (0-40) U/L Alkaline Phosphatase 138 H (39-117) U/L C-Reactive Protein 1.75 H (< or = 0.50) mg/dL Total Protein 7.6 (6.5-8.0) g/dL Albumin 3.9 (3.5-5.0) g/dL Independent Historian Clinical information obtained from an independent historian. History obtained from or confirmed by: EMS (EMS provided additional history and confirmed the history provided by the patient. ) External Record Review External record reviewed: Office record and Outpatient record reviewed previous [facility] [place] for this patient. Prescription Management I considered prescription management with: Pain Medication (patient prescribed pain medicaiton.) Chronic Conditions Patient?s care impacted by: Diabetes and Hypertension Discharge Plan Discharge Clinical Impression: Cervical radiculopathy, Paresthesia Patient Disposition: Home, Self-Care Instructions: Paresthesia (ED), Cervical Radiculopathy (ED) Additional Instructions: Follow up with your primary care provider and a operations and maintenance specialist. Return to the emergency department immediately if your symptoms worsen or if you develop any dizziness, shortness of breath, difficulty breathing, chest pain, blurry vision, loss of vision, nausea, vomiting, abdominal pain, fever, chills, back pain, or any other complaints. Prescriptions: New cyclobenzaprine 5 mg tablet 5 mg PO TID PRN (Reason: muscle spasm) 7 Days Qty: 21 0RF prednisone 20 mg tablet 20 mg PO DAILY 7 Days Qty: 7 0RF No Action fluticasone propion-salmeterol [Wixela Inhub] 250-50 mcg/dose blister with device 1 inh inhalation BID Qty: 60 3RF cholecalciferol (vitamin D3) 125 mcg (5,000 unit) capsule 125 mcg PO DAILY Qty: 30 3RF Vitron-C 65 mg iron- 125 mg tablet,delayed release (DR/EC) 1 tab PO DAILY Qty: 30 3RF Rx Instructions: swallow whole; do not chew/break/dissolve/open insulin glargine [Lantus U-100 Insulin] 100 unit/mL solution 80 unit subcut DAILY Qty: 30 6RF (DME) FreeStyle Monty 2 [place] Misc See Rx Instructions .Route Qty: 1 0RF Rx Instructions: As directed (DME) FreeStyle Monty 2 Sensor Kit See Rx Instructions .ROUTE .COMPLEX Qty: 2 0RF Dose Instruction: USE EVERY 14 DAYS DIRECTED Rx Instructions: USE EVERY 14 DAYS DIRECTED acetaminophen 500 mg tablet 1,000 mg PO Q6H PRN ketoconazole 2 % gel 1 appl topical DAILY aspirin [Adult Low Dose Aspirin] 81 mg tablet,delayed release (DR/EC) 81 mg PO DAILY metformin 1,000 mg tablet 1,000 mg PO BID lisinopril 40 mg tablet 40 mg PO DAILY pravastatin 20 mg tablet 20 mg PO BEDTIME glimepiride 2 mg tablet 2 mg PO DAILY tadalafil [Cialis] 10 mg tablet 20 mg PO DAILY PRN Rx Instructions: administer approximately 30min before sexual activity; do not use more than 1 dose per 24hrs albuterol sulfate [ProAir HFA] 90 mcg/actuation HFA aerosol inhaler 2 puff inhalation Q6H PRN albuterol sulfate 2.5 mg /3 mL (0.083 %) solution for nebulization 2.5 mg inhalation Q4-6H PRN (DME) blood-glucose meter [FreeStyle Lite Meter] Kit See Rx Instructions .Route Rx Instructions: As directed (DME) FreeStyle Lite Strips Strip See Rx Instructions .Route Rx Instructions: As directed 3 times a day amitriptyline 10 mg tablet 10 mg PO BEDTIME (DME) lancets [FreeStyle Lancets] 28 gauge misc See Rx Instructions .Route Rx Instructions: As directed 3 times a day furosemide 40 mg tablet 80 mg PO BID amlodipine 10 mg tablet 10 mg PO DAILY (DME) insulin syringe-needle U-100 1 mL 30 gauge X 7/16 syringe See Rx Instructions .ROUTE DAILY Qty: 100 Rx Instructions: As directed once a day omeprazole 20 mg capsule,delayed release(DR/EC) 20 mg PO DAILY ferrous sulfate [FeroSul] 325 mg (65 mg iron) tablet 325 mg PO Q OTHER DAY gabapentin 300 mg capsule 300 mg PO BEDTIME Referrals: [facility] [Provider Group] (Call to establish and follow up with a operations and maintenance specialist. ) [place] [Primary Care Provider] - Interventions: ED Discharge Assessment Last Done: 10/10/22 12:59 Print Language: Mexican
[2022-10-10 11:02] VITALS: BP 152/88; PULSE 91; O2SAT 96
[2022-10-10 11:05] VITALS: BP 132/71; PULSE 79; RESP 16; TEMP 36.3; O2SAT 97; BMI 43.4
[2022-10-10] MEDS: Cyclobenzaprine HCl 10 MG TABLET PO (11:27)
[2022-10-10] MEDS: predniSONE 20 MG TABLET PO (11:27)
--- NOTE | 2022-10-10 11:29 | PC.NURSE ---
medicated per MAR.
[2022-10-10 12:03] LABS: Alanine Aminotransferase 27 U/L (0-40); Albumin Level 3.9 g/dL (3.5-5.0); Alkaline Phosphatase 138 U/L (39-117); Anion Gap 13 (12-20); Aspartate Amino Transferase 42 U/L (5-37); Bilirubin Total 0.4 mg/dL (0.0-1.0); Blood Urea Nitrogen 15 mg/dL (9-16); C Reactive Protein 1.75 mg/dL (< or = 0.50); Calcium 8.4 mg/dL (8.4-10.2); Carbon Dioxide 28 mmol/L (22-29); Chloride 103 mmol/L (96-108); Creatinine Clr Calc Pharmacy 97.6; Estimated Glomerular Filt Rate > 60; Glucose Random 105 mg/dL (60-115); Potassium 3.4 mmol/L (3.3-5.1); Sodium 141 mmol/L (135-145); Total Protein 7.6 g/dL (6.5-8.0)
[2022-10-10 12:20] LABS: MANUAL DIFF FLAG NO
[2022-10-10 12:23] LABS: Basophils Percent Auto 0.2 % (0-2); Hematocrit 36.2 % (42.0-52.0); Hemoglobin 11.8 g/dl (14.0-18.0); Imm Gran Abs Auto 0.03 X10*3/uL (0.00-0.03); Imm Gran Pct Auto 0.3 % (0.0-0.4); Lymphocytes Percent Auto 22.7 % (20-40); Mean Corpuscular HGB Conc 32.6 g/dl (31.0-36.0); Mean Corpuscular Hemoglobin 27.4 pg (27.0-33.0); Monocytes Absolute Auto 0.5 X10*3/uL (0.1-1.2); Monocytes Percent Auto 5.8 % (2-11); Neutrophils Absolute Auto 6.3 x10*3/uL (2.0-8.3); Platelet Count 318 X10*3/uL (160-400); Red Blood Count 4.31 X10*6/uL (4.60-5.80); Red Cell Distribution Width 13.6 % (11.0-16.0); White Blood Count 8.9 X10*3/uL (4.8-10.8)
[2022-10-10 13:05] LABS: Erythrocyte Sedimentation Rate 28 MM/HR (0-15)
== END 2022-10-10 13:00 | disposition home or self-care (01) ==
PROVIDERS: Physician Assistant Medical; Emergency Provider Emergency Medicine
DX: M54.12 Radiculopathy, cervical region (principal); R20.2 Paresthesia of skin; Z79.899 Other long term (current) drug therapy
CPT/HCPCS: 36415; 80053; 85025; 85652; 86140; 99283

== ENCOUNTER 2022-10-25 07:56 | Outpatient (REF) | payer MEDICAID, SELFPAY ==
--- NOTE | 2022-10-25 08:00 | EMG_ITS ---
Left median and ulnar motor and sensory studies were performed. Left radial sensory study was performed and paraspinal muscles were tested with needle. Left median and lateral antecubital sensory studies were also performed. IMPRESSION: 1. Mild left ulnar neuropathy across cubital tunnel. 2. Mild left median neuropathy across carpal tunnel. 3. Underlying predominantly sensory peripheral neuropathy. MD MORENA Paz/CARRILLO / [id number]
== END 2022-10-25 07:57 | disposition home or self-care (01) ==
LOC: HO.NEURO 07:56
PROVIDERS: PCP Registered Nurse; Visit Provider Registered Nurse
DX: R20.0 Anesthesia of skin (principal); R20.2 Paresthesia of skin
CPT/HCPCS: 95886; 95910

== ENCOUNTER 2022-11-20 13:56 | Outpatient (REF) | payer MEDICAID, SELFPAY | END 2022-11-20 13:57 | disposition home or self-care (01) | LOC: HO.MDS 13:56 | PROVIDERS: Visit Provider Internal Medicine Pulmonary Disease | DX: J45.50 Severe persistent asthma, uncomplicated (principal) | CPT/HCPCS: 96372; J0517 ==

== ENCOUNTER 2022-12-05 11:38 | Outpatient (AMB) | payer MEDICAID, SELFPAY ==
[2022-12-05 11:41] VITALS: BMI 43.3
--- NOTE | 2022-12-05 11:41 | MHC.OFFVIS ---
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 States his left hand is worse. States symptoms started about 1 yr ago and has worsen since. Currently he has concerns of weakness in hand. Seen in ED where an EMG was order. Patient denies use of brace, therapy or injections. Allergies pollen Allergy (Mild, Uncoded 12/05/22 11:46) ichy eyes Medication List - Last Reconciled 12/05/22 by Reanna Schroeder MD acetaminophen 1,000 mg PO Q6H PRN albuterol sulfate 90 mcg/actuation (ProAir HFA) 2 puffs inhalation Q6H PRN albuterol sulfate 2.5 mg inhalation Q4-6H PRN amitriptyline 10 mg PO BEDTIME amlodipine 10 mg PO DAILY aspirin (Adult Low Dose Aspirin) 81 mg PO DAILY blood sugar diagnostic (FreeStyle Lite Strips) As directed 3 times a day blood-glucose meter (FreeStyle Lite Meter kit) As directed cholecalciferol (vitamin D3) 125 mcg PO DAILY cyclobenzaprine 5 mg PO TID PRN 7 days ferrous sulfate (FeroSul) 325 mg PO Q OTHER DAY flash glucose scanning reader (1010dataStyle Monty 2 Purchase) As directed flash glucose sensor (FreeStyle Monty 2 Sensor kit) USE EVERY 14 DAYS DIRECTED. fluticasone propion-salmeterol 250-50 mcg/dose (Wixela Inhub) 1 inh inhalation BID furosemide 80 mg PO BID gabapentin 300 mg PO BEDTIME glimepiride 2 mg PO DAILY insulin glargine (Lantus U-100 Insulin) 80 units (0.8 mL) subcut DAILY insulin syringe-needle U-100 As directed once a day iron,carbonyl-vitamin C 65 mg iron- 125 mg (Vitron-C) 1 tab PO DAILY ketoconazole 2% 1 appl topical DAILY lancets (FreeStyle Lancets) As directed 3 times a day lisinopril 40 mg PO DAILY metformin 1,000 mg PO BID omeprazole 20 mg PO DAILY pravastatin 20 mg PO BEDTIME tadalafil (Cialis) 20 mg PO DAILY PRN HPI HPI Comments History of Present Illness Details History of DM. Gradually progressing hand numbness more than a year, both sides. Worst on 3rd-5th digits. He also has numbness on his feet 1991, since back surgery in [place]. Told to have neuropathy from DM also, been prescribed gabapentin for at least 4 years now. No associated neck pain. Chronic back pain. Radiates to left leg. Left leg is more numb than right. EMG done by Dr. Eddy read as mild ulnar and motor neuropathy. On my independent review, the median and ulnar palm mixed nerves showed no response; but median and ulnar CMAPs looked normal. RUE not done. 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 Sister No problems noted. 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 MSK: Inspection reveals appropriate head and neck positioning. No pain with palpation over the neck musculature. Cervical ROM was full. Spurling's sign negative. Bilateral shoulder ROM WNL. No ligamentous laxity or crepitance. No increased effusion. Hawkin's test is negative. No joint effusion noted. No deformity noted. No intrinsic hand weakness noted. No atrophy noted. Jo Ann test negative. Carpal compression test negative. Tinel sign negative. Strength is 5/5 in all muscle groups tested. No increased tone noted. Neurological: Neurologic examination of the upper and lower extremities was nonfocal with intact sensation, muscle stretch reflexes and without focal motor deficits except for left footdrop, 3-/5 left dorsiflexion. Uriarte?s negative bilaterally. Babinski was down going bilaterally. Clonus was negative. Gait is non-antalgic without loss of balance. Results Reviewed Results Reviewed: Date of Service: 10/25/22 Procedure(s): NE electromyogram (EMG); NE nerve conduction velocity Accession Number(s): [id number]; [id number] cc: Tiffanie Dailey~ Left median and ulnar motor and sensory studies were performed. Left radial sensory study was performed and paraspinal muscles were tested with needle. Left median and lateral antecubital sensory studies were also performed. IMPRESSION: 1. Mild left ulnar neuropathy across cubital tunnel. 2. Mild left median neuropathy across carpal tunnel. 3. Underlying predominantly sensory peripheral neuropathy. I independently reviewed the results of the following: On my independent review, the median and ulnar palm mixed nerves showed no response; but median and ulnar CMAPs looked normal. RUE not done. Date of Service: 06/13/21 Procedure(s): XR hand RT min 3V Accession Number(s): [id number] cc: Beau Stewart MD~ EXAMINATION: X-RAY RIGHT HAND X-RAY LEFT HAND CLINICAL INFORMATION: Trigger thumb, unspecified. COMPARISON: No similar priors. TECHNIQUE: 3 views of each hand were obtained. XR/XR hand RT min 3V FINDINGS/IMPRESSION: No acute fractures or malalignment. No significant degenerative changes. Mild diffuse nonspecific bilateral soft tissue swelling without discrete radiopaque foreign bodies. I reviewed records from the following: Neurology HB A1c 8.8, 7.0 most recent Assessment & Plan Assessment & Plan (1) Diabetic neuropathy associated with diabetes mellitus due to underlying condition: Code(s): E08.40 - Diabetes mellitus due to underlying condition with diabetic neuropathy, unspecified (2) Hand numbness: Code(s): R20.0 - Anesthesia of skin (3) Lumbar radiculopathy, chronic: Code(s): M54.16 - Radiculopathy, lumbar region (4) Foot drop, left: Code(s): M21.372 - Foot drop, left foot Plan After history and review of recent LUE EMG, I believe his hand numbness is part of a stocking glove distribution of his diabetic neuropathy. I would recommend to repeat LUE EMG but also do LUE and BLE. He may have secondary CTS for which we will give wrist splints to wear especially at night and at rest. We know he has chronic lumbar radiculopathy on left with foot drop, this is not the reason why we are doing the EMG but most likely may see chronic electrodiagnostic changes pertaining to this. Assessment and plan discussed with patient, and patient was agreeable. All questions were answered thoroughly. Reanna Schroeder MD, SHARMAINE Board Certified, [place] Board [employer] Physical [employer] and Rehabilitation (ABPMR) Board Certified, [place] Board [employer] Electrodiagnostic Medicine (ABEM) Orders: Orders NE electromyogram (EMG) Today E08.40 - Diabetes mellitus due to underlying condition with diabetic neuropathy, unspecified, M21.372 - Foot drop, left foot, M54.16 - Radiculopathy, lumbar region, R20.0 - Anesthesia of skin NE nerve conduction velocity Today E08.40 - Diabetes mellitus due to underlying condition with diabetic neuropathy, unspecified, M21.372 - Foot drop, left foot, M54.16 - Radiculopathy, lumbar region, R20.0 - Anesthesia of skin Coding Level of Care Code Tele New Pt Level 4 (19181) Diagnoses Diabetic neuropathy associated with diabetes mellitus due to underlying condition E08.40 Hand numbness R20.0 Lumbar radiculopathy, chronic M54.16 Foot drop, left M21.372
== END 2022-12-05 12:16 | disposition home or self-care (01) ==
PROVIDERS: PCP Registered Nurse; Visit Provider Physical Medicine & Rehabilitation
DX: R20.0 Anesthesia of skin (principal); E08.40 Diabetes mellitus due to underlying condition with diabetic neuropathy, unspecified; M54.16 Radiculopathy, lumbar region; M21.372 Foot drop, left foot
CPT/HCPCS: 99204

== ENCOUNTER → 2022-12-05 11:38 | Outpatient (BNVA) | payer MEDICAID, SELFPAY | PROVIDERS: PCP Registered Nurse; Visit Provider Physical Medicine & Rehabilitation | DX: M54.16 Radiculopathy, lumbar region (principal); M21.372 Foot drop, left foot; R20.0 Anesthesia of skin; E08.40 Diabetes mellitus due to underlying condition with diabetic neuropathy, unspecified; Z79.4 Long term (current) use of insulin | CPT/HCPCS: 99202 ==

== ENCOUNTER 2022-12-21 14:12 | Outpatient (REF) | payer MEDICAID, SELFPAY ==
[2022-12-21 16:05] LABS: B Type Natriuretic Peptide 15 pg/mL (<100)
[2022-12-21 16:35] LABS: Anion Gap 14 (12-20); Blood Urea Nitrogen 7 mg/dL (9-16); Calcium 8.3 mg/dL (8.4-10.2); Carbon Dioxide 27 mmol/L (22-29); Chloride 101 mmol/L (96-108); Estimated Glomerular Filt Rate > 60; Glucose Random 147 mg/dL (60-115); Magnesium 1.3 mg/dL (1.6-2.6); Potassium 3.4 mmol/L (3.3-5.1); Sodium 139 mmol/L (135-145)
== END 2022-12-21 14:13 | disposition home or self-care (01) ==
LOC: HO.LAB 14:12
PROVIDERS: PCP Internal Medicine Geriatric Medicine; Visit Provider Internal Medicine Geriatric Medicine
DX: E11.69 Type 2 diabetes mellitus with other specified complication (principal); R06.09 Other forms of dyspnea; R60.0 Localized edema; I51.89 Other ill-defined heart diseases; Z79.4 Long term (current) use of insulin
CPT/HCPCS: 36415; 80048; 83735; 83880

== ENCOUNTER 2022-12-28 11:01 | Outpatient (REF) | payer MEDICAID, SELFPAY ==
--- NOTE | 2022-12-28 11:04 | EMG_ITS ---
Chief complaint: Suspect hand numbness is part of a stocking glove distribution of his diabetic neuropathy. Please see my last note. Reason for referral: Evaluate for neuropathy Procedure done: Bilateral upper extremities/bilateral lower extremity NCS/EMG Precautions and/or limitations: None The limb temperature was monitored continuously and remained between 32-36 degrees C during the performance of the NCS. Nerve Conduction Studies Anti Sensory Summary Table ?Stim Site NR Onset (ms) Norm Onset (ms) Peak (ms) Norm Peak (ms) O-P Amp (?V) Norm O-P Amp Site1 Site2 Delta-0 (ms) Dist (cm) Damian (m/s) Norm Damian (m/s) Left Median Anti Sensory (2nd Digit) Wrist ? 3.0 3.4 <3.6 9.1 >10 Wrist 2nd Digit 3.0 14.0 47 Right Median Anti Sensory (2nd Digit) Wrist ? 2.9 3.6 <3.6 7.2 >10 Wrist 2nd Digit 2.9 14.0 48 Elbow ? 3.1 3.6 6.6 Elbow Wrist 0.2 0.0 >48 Right Radial Anti Sensory (Thumb) Forearm ? 1.7 2.3 <3.1 13.5 Forearm Thumb 1.7 0.0 Left Sural Anti Sensory (Lat Mall) Calf ? 2.6 3.0 <4.0 0.9 >5.0 Calf Lat Mall 2.6 14.0 54 Right Sural Anti Sensory (Lat Mall) Calf NR <4.0 >5.0 Calf Lat Mall 14.0 Left Ulnar Anti Sensory (5th Digit) Wrist ? 3.0 3.5 <3.7 2.3 >15.0 Wrist 5th Digit 3.0 14.0 47 Right Ulnar Anti Sensory (5th Digit) Wrist ? 2.4 3.3 <3.7 17.0 >15.0 Wrist 5th Digit 2.4 14.0 58 Motor Summary Table ?Stim Site NR Onset (ms) Norm Onset (ms) O-P Amp (mV) Norm O-P Amp iAmp (mV) Amp (1st) (%) Site1 Site2 Delta-0 (ms) Dist (cm) Damian (m/s) Norm Damian (m/s) Left Median Motor (Abd Poll Brev) Wrist ? 3.6 <3.9 8.9 >4.5 10.9 100.0 Elbow Wrist 4.1 22.0 54 >45 Elbow ? 7.7 7.9 9.8 88.8 Right Median Motor (Abd Poll Brev) Wrist ? 3.8 <3.9 10.6 >4.5 12.9 100.0 Elbow Wrist 3.9 21.0 54 >45 Elbow ? 7.7 10.6 13.1 100.0 Right Peroneal Motor (Ext Dig Brev) Ankle NR <4.0 >2.5 Ankle Ext Dig Brev 0.0 B Fib ? 13.3 3.8 4.2 B Fib Ankle 0.0 >40 Poplt ? 13.9 4.1 4.5 Poplt B Fib 0.6 5.0 83 >40 Left Tibial Motor (Abd Miner Brev) Ankle ? 8.0 <5 0.1 >2.5 0.1 100.0 Ankle Abd Miner Brev 8.0 40.0 50 Knee ? 16.6 2.6 3.3 2600.0 Knee Ankle 8.6 0.0 >40 Right Tibial Motor (Abd Miner Brev) Ankle NR <5 >2.5 Ankle Abd Miner Brev 0.0 Knee ? 13.8 2.1 2.6 Knee Ankle 0.0 >40 Right Ulnar Motor (Abd Dig Minimi) Wrist ?? 3.0 <3.0 6.7 >5 7.9 100.0 B Elbow Wrist 4.2 21.0 50 >45 B Elbow ? 7.2 7.2 9.2 107.5 A Elbow B Elbow 1.8 10.0 56 >45 A Elbow ? 9.0 6.4 7.6 95.5 EMG ?Side Muscle Nerve Root Ins Act Fibs Psw Amp Dur Poly Recrt Int Pat Comment Right 1stDorInt Ulnar C8-T1 Nml Nml Nml Nml Nml 0 Nml Complete Right FlexCarRad Median C6-7 Nml Nml Nml Nml Nml 0 Nml Complete Right Deltoid Axillary C5-6 Nml Nml Nml Nml Nml 0 Nml Complete Right AbdHallucis MedPlantar S1-2 Incr 1+ 1+ Nml Nml 0 Nml Complete Right AntTibialis Dp Br Peron L4-5 Nml Nml Nml Nml Nml 0 Nml Complete Right PostTibialis Tibial L5, S1 Nml Nml Nml Nml Nml 0 Nml Complete Right MedGastroc Tibial S1-2 Nml Nml Nml Nml Nml 0 Nml Complete Right VastusMed Femoral L2-4 Nml Nml Nml Nml Nml 0 Nml Complete Left AbdHallucis MedPlantar S1-2 Nml Nml Nml Nml Nml 0 Nml Complete Left AntTibialis Dp Br Peron L4-5 Nml Nml Nml Nml Nml 0 Nml Complete avoided, patient has wound Left PostTibialis Tibial L5, S1 Nml Nml Nml Nml Nml 0 Nml Complete Left MedGastroc Tibial S1-2 Nml Nml Nml Nml Nml 0 Nml Complete Left VastusMed Femoral L2-4 Nml Nml Nml Nml Nml 0 Nml Complete FINDINGS: Right median sensory nerve showed small amplitude. distal latency, amplitude and conduction velocity. Left median sensory nerve showed small amplitude. Left ulnar sensory nerve showed small amplitude. Right peroneal nerve showed absent response distally, but no conduction block across fibula. Right tibial nerve showed absent response distally. Left tibial nerve showed small amplitude distally. Left sural nerve showed small amplitude. Right sural nerve showed no response. All other nerves tested were within normal. Concentric needle EMG was performed in selected muscles of the bilateral lower extremity and right upper extremities. Study revealed Signs of electric abnormalities as shown in the table below. Right AH showed increased insertional activity, PSWs and fibrillations. IMPRESSION: 1. This is an abnormal study. 2. 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 Thank you for your kind referral. Reanna Schroeder MD, SHARMAINE Board Certified, [place] Board of Physical Medicine and Rehabilitation (ABPMR) Board Certified, [place] Board of Electrodiagnostic Medicine (ABEM) Cc: Name CODIN 14053 x 2 32177 MTDD
== END 2022-12-28 11:02 | disposition home or self-care (01) ==
LOC: HO.NEURO 11:01
PROVIDERS: PCP Registered Nurse; Visit Provider Physical Medicine & Rehabilitation
DX: R20.0 Anesthesia of skin (principal); M21.372 Foot drop, left foot; E11.40 Type 2 diabetes mellitus with diabetic neuropathy, unspecified
CPT/HCPCS: 95885; 95886; 95913

== ENCOUNTER 2023-01-16 14:58 | Outpatient (REF) | payer MEDICAID, SELFPAY | END 2023-01-16 14:59 | disposition home or self-care (01) | LOC: HO.MDS 14:58 | PROVIDERS: Visit Provider Internal Medicine Pulmonary Disease | DX: J45.50 Severe persistent asthma, uncomplicated (principal) | CPT/HCPCS: 96372; J0517 ==

== ENCOUNTER 2023-02-15 10:14 | Outpatient (AMB) | payer MEDICAID, SELFPAY ==
--- NOTE | 2023-02-15 10:15 | A.OFFVIS_ITS ---
Intake Vital Signs 02/15/23 10:16 Height 5 ft 6 in Weight 286 lb 9.615 oz BMI 46.3 BP 110/62 Blood Pressure Location Lt brachial Position Sitting Pulse 88 Pulse Source Doppler Pulse Oximetry (%) 98 Oxygen Delivery Method Room Air Intake Visit Reasons: Asthma Allergies pollen Allergy (Mild, Uncoded 12/05/22 11:46) ichy eyes HPI Asthma HPI Details 51-year-old gentleman, lifetime nonsmoke r, with underlying history of at least moderate diastolic dysfunction, followed for dyspnea on exertion, MAURIZIO on CPAP, and severe persistent asthma.?He has been compliant with CPAP with good control of his underlying symptoms.? He has been using Lasix 80 mg twice a day with recent addition of spironolactone, however patient does complain of worsening lower extremity edema.? He also continues on Fasenra, Wixela 250, and albuterol MDI with excellent control of his underlying asthma symptoms. He denies recent exacerbations. [facility], [facility] Medical History (Updated 02/15/23 @ 10:31 by Rene Sánchez MD) Foot drop, left Lumbar radiculopathy, chronic Diabetic neuropathy associated with diabetes mellitus due to underlying condition Abnormal ECG Type 2 diabetes mellitus with diabetic polyneuropathy Obesity due to excess calories Hx of pancreatitis Acid reflux Elevated alkaline phosphatase measurement Asthma MAURIZIO on CPAP Morbid obesity Degeneration of L4-L5 intervertebral disc Diabetes Anemia Apnea, sleep Dyspnea on exertion HTN (hypertension) Obstructive sleep apnea Surgical History Hx of cholecystectomy History of back surgery Family History Father Diabetes Hearing loss Mother CVD (cardiovascular disease) Thyroid condition Paternal Grandmother Diabetes Paternal Aunt Diabetes Sister No problems noted. Sister No problems noted. 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 Review of Systems Const Denies daytime sleepiness, Denies excessive sweating, Denies fatigue, Denies fever(s), Denies lethargy, Denies malaise, Denies night sweats, Denies snoring and Denies weight loss Eyes Denies blurry vision and Denies itchy eyes ENT Denies nasal congestion, Denies post nasal drip, Denies sinus pain, Denies sinus pressure and Denies other ( Thrush) Card Denies chest pain, Reports pedal edema, Denies dyspnea, Denies orthopnea and De nies paroxysmal nocturnal dyspnea Resp Denies cough, Denies hemoptysis, Denies excessive phlegm production, Denies dyspnea, Denies snoring and Denies wheezing GI Denies abdominal pain and Denies heartburn Musc Denies myalgias, Denies arthralgias and Denies joint swelling Skin/Breast Denies rash Neuro Denies memory loss and Denies seizure-like activity Psych Denies abnormal sleep pattern, Denies anxiety and Denies memory loss Endo Denies excessive sweating, Denies fatigue and Denies heat intolerance Brennan/Lymph Denies easy bruising Aller/Immun Denies itchy eyes, Denies seasonal rhinorrhea and Denies wheezing Physical Exam Vital Signs: Last Vital Signs Pulse 88 02/15/23 10:16 BP 110/62 02/15/23 10:16 Pulse Ox 98 02/15/23 10:16 Oxygen Delivery Method Room Air 02/15/23 10:16 BMI result Body Mass Index 46.3 Const General: no acute distress and alert Nutritional Appearance: not obese Orientation/consciousness: Other orientation findings ( oriented) HEENT Head: Yes atraumatic Eyes General: appearance normal, both eyes and all related structures Sclerae: sclerae normal EOM: EOMs intact bilaterally Neck Neck: Yes supple Lymphatic: no lymphadenopathy noted Resp Effort & Inspection: normal respiratory effort and no use of accessory muscles Auscultation: clear to auscultation bilaterally Cardio Rate: regular rate Rhythm: regular rhythm Heart sounds: no gallops, no murmurs and no rubs Skin General skin exam: other ( warm) Extrem General: No clubbing, No cyanosis and Yes edema (3+ bilateral) Assessment & Plan Assessment & Plan (1) MAURIZIO on CPAP: Code(s): G47.33 - Obstructive sleep apnea (adult) (pediatric); Z99.89 - Dependence on other enabling machines and devices Plan: Well controlled on current CPAP therapy. Continue CPAP therapy. (2) Severe persistent allergic asthma: Code(s): J45.50 - Severe persistent asthma, uncomplicated Plan: Well controlled on Fasenra, Wixela, and albuterol MDI. Continue current regimen. (3) Lower extremity edema: Code(s): R60.0 - Localized edema Plan: Now with worsening lower extremity edema. Patient has been advised to double his diuretic for the next week. Coding Level of Care Code Est Pt Level 4 (94092) Diagnoses MAURIZIO on CPAP G47.33; Z99.89 Severe persistent allergic asthma J45.50 Lower extremity edema R60.0
[2023-02-15 10:16] VITALS: BP 110/62; PULSE 88; O2SAT 98; BMI 46.3
== END 2023-02-15 10:28 | disposition home or self-care (01) ==
PROVIDERS: PCP Registered Nurse; Visit Provider Internal Medicine Pulmonary Disease
DX: G47.33 Obstructive sleep apnea (adult) (pediatric) (principal); Z99.89 Dependence on other enabling machines and devices; J45.50 Severe persistent asthma, uncomplicated; R60.0 Localized edema
CPT/HCPCS: 99214

== ENCOUNTER 2023-02-15 10:14 | Outpatient (REF) | payer MEDICAID, SELFPAY ==
[2023-02-15 12:01] LABS: Magnesium 1.4 mg/dL (1.6-2.6)
== END 2023-02-15 10:15 | disposition home or self-care (01) ==
LOC: HO.LAB 10:14
PROVIDERS: PCP Internal Medicine Geriatric Medicine; Referring Provider Internal Medicine Geriatric Medicine; Visit Provider Internal Medicine Pulmonary Disease
DX: E83.42 Hypomagnesemia (principal); G47.33 Obstructive sleep apnea (adult) (pediatric); J45.50 Severe persistent asthma, uncomplicated; R60.0 Localized edema; Z99.89 Dependence on other enabling machines and devices; Z79.899 Other long term (current) drug therapy
CPT/HCPCS: 36415; 83735; 99212

== ENCOUNTER 2023-03-13 14:43 | Outpatient (REF) | payer MEDICAID, SELFPAY | END 2023-03-13 14:44 | disposition home or self-care (01) | LOC: HO.MDS 14:43 | PROVIDERS: Visit Provider Internal Medicine Pulmonary Disease | DX: J45.50 Severe persistent asthma, uncomplicated (principal) | CPT/HCPCS: 96372; J0517 ==

== ENCOUNTER 2023-03-20 13:57 | Outpatient (REF) | payer MEDICAID, SELFPAY ==
[2023-03-20 16:12] LABS: Cholesterol 134 mg/dL (<200); HDL Cholesterol 38 mg/dL (>40); LDL Cholesterol Calculated 65 mg/dL (<100); Triglycerides 159 mg/dL (<150)
[2023-03-20 16:12] LABS: Microalbum/Creatinine Ratio Ur 108.2 ug/mg cr (<30)
== END 2023-03-20 13:58 | disposition home or self-care (01) ==
LOC: HO.LAB 13:57
PROVIDERS: PCP Internal Medicine Geriatric Medicine; Visit Provider Internal Medicine Endocrinology, Diabetes & Metabolism
DX: E11.42 Type 2 diabetes mellitus with diabetic polyneuropathy (principal); Z79.4 Long term (current) use of insulin
CPT/HCPCS: 36415; 80061; 82043; 82570

== ENCOUNTER 2023-03-26 14:11 | Outpatient (AMB) | payer MEDICAID, SELFPAY ==
--- NOTE | 2023-03-26 14:12 | MHC.OFFVIS ---
Intake Vital Signs 03/26/23 14:13 Height 5 ft 6 in Weight 283 lb 8.231 oz BMI 45.8 BP 126/76 Blood Pressure Location Lt brachial Position Sitting Pulse 89 Pulse Source Pulse Oximeter Intake Visit Reasons: f/u Type 2 DM-lvm Intake Note: Patient present today to follow up on Type 2 Diabetes Mellitus. Last Diabetic Eye exam: 08/2022 Last Podiatry Visit: None Random Glucose: 128 mg/dl HgA1C: 8.6% Residential Counselor Required: No Accompanied by: Self / Same As Patient Allergies pollen Allergy (Mild, Uncoded 12/05/22 11:46) ichy eyes HPI HPI Comments History of Present Illness Details Patient is a 53-year-old male with DM type 2 diagnosed 2005, who presents for management of diabetes. Past medical history: DM2, HTN, Vit D deficiency, Fatty liver, asthma, obesity, history of pancreatitis September 2020 Micro and macrovascular complications: retinopathy, nephropathy, + neuropathy, but no CVA, CAD, PVD Diabetes medications: Lantus 70 units daily, glimepiride 2mg in am,, metformin 1,000mg BID. Intolerant to Trulicity and Ozempic due to eructation/flatulence foul, bloating. Monty download shows he is using the sensor 35% of time. Average glucose is 209. Glucose is in adytrx79 % of the time with 74% hyperglycemia and 1%hypoglycemia occurring primarily overnight. Hypoglycemia: occasional alarms overnight Hyperglycemia: occasional urinary frequency, occasional nocturia, + polydypsia Medical And Health Services Manager - CDE education: seeing [facility] Ophthalmology evaluation: appt 09/2022 denies retinopathy Labs from [facility] dated 11/28/2020: Cholesterol 121 HDL 35 Triglycerides 219 LDL cholesterol 57 Hemoglobin 11.9 Creatinine 0.96 Estimated GFR 92 Labs from [facility] dated 07/13/20: A1c 8.9%, 9.2% albumin/creatinine <39 Hgb 10.9 creatinine 1.31 eGFR 63 Laboratory Tests 11/30/20 10:02 Hgb A1c (Clinic) 6.1 H [facility] Medical History (Updated 02/15/23 @ 10:31 by Rene Sánchez MD) Foot drop, left Lumbar radiculopathy, chronic Diabetic neuropathy associated with diabetes mellitus due to underlying condition Abnormal ECG Type 2 diabetes mellitus with diabetic polyneuropathy Obesity due to excess calories Hx of pancreatitis Acid reflux Elevated alkaline phosphatase measurement Asthma MAURIZIO on CPAP Morbid obesity Degeneration of L4-L5 intervertebral disc Diabetes Anemia Apnea, sleep Dyspnea on exertion HTN (hypertension) Obstructive sleep apnea Surgical History Hx of cholecystectomy History of back surgery Family History Father Diabetes Hearing loss Mother CVD (cardiovascular disease) Thyroid condition Paternal Grandmother Diabetes Paternal Aunt Diabetes Sister No problems noted. Sister No problems noted. 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 Absence of acromegalic features. Neck exam reveals nl size thyroid about 15 gms. No thyroid nodules palpable. No carotid bruits present. Lungs CTA. Heart S1 S2, Reg R/R. No M/R/ G. Skin exam reveals absence of vitiligo or acanthosis nigricans. Abdominal exam reveals Soft NT/ND with NA BS. No organomegaly present. Neck Other: . Extrem Other: Visual exam of foot performed. No ulcerations or open lesions. No onchomycosis, no callouses.Pulses 2 + distally Sensation intact to monofilament exam. Vibratory sensation sensed is intact with 128 Hz tuning fork Assessment & Plan Assessment & Plan (1) Diabetes: Code(s): E11.9 - Type 2 diabetes mellitus without complications Plan: This is a 53-year-old male with a history of type 2 diabetes being treated with metformin, , glimepiride and basal insulin with excellent improved glycemic control and known microvascular and macrovascular complications namely retinopathy, nephropathy, + neuropathy, The plan is to start Humalog insulin with point of care 80-150 6 units, 151-200 8 units and > 200 10 units. Patient is to follow up with the community health educator. I also made a referral to Podiatry Orders: Referrals Podiatry Referral E11.9 - Type 2 diabetes mellitus without complications Medications: New insulin lispro (Humalog KwikPen (U-100) Insulin) 10 units (0.1 mL) subcut TID 15 mL 5RF Coding Level of Care Code Est Pt Level 4 (92603) Diagnoses Diabetes E11.9
[2023-03-26 14:13] VITALS: BP 126/76; PULSE 89; BMI 45.8
[2023-03-26 14:32] LABS: Glucose, Whole Blood 128 mg/dL (60-115)
== END 2023-03-26 14:46 | disposition home or self-care (01) ==
PROVIDERS: PCP Internal Medicine Geriatric Medicine; Referring Provider Internal Medicine Geriatric Medicine; Visit Provider Internal Medicine Endocrinology, Diabetes & Metabolism
DX: E11.9 Type 2 diabetes mellitus without complications (principal)
CPT/HCPCS: 99214

== ENCOUNTER → 2023-03-26 14:11 | Outpatient (BNVA) | payer MEDICAID, SELFPAY | PROVIDERS: PCP Internal Medicine Geriatric Medicine; Visit Provider Internal Medicine Endocrinology, Diabetes & Metabolism | DX: E11.9 Type 2 diabetes mellitus without complications (principal); Z79.4 Long term (current) use of insulin | CPT/HCPCS: 82947; 83036; 99212 ==

== ENCOUNTER 2023-03-26 15:43 | Outpatient (REF) | payer MEDICAID, SELFPAY ==
[2023-03-26 17:27] LABS: Anion Gap 14 (12-20); Blood Urea Nitrogen 13 mg/dL (9-16); Carbon Dioxide 25 mmol/L (22-29); Chloride 102 mmol/L (96-108); Estimated Glomerular Filt Rate > 60; Glucose Random 129 mg/dL (60-115); Sodium 137 mmol/L (135-145)
[2023-03-26 18:16] LABS: Magnesium 1.4 mg/dL (1.6-2.6)
== END 2023-03-26 15:44 | disposition home or self-care (01) ==
LOC: HO.HHCL 15:43
PROVIDERS: Visit Provider Internal Medicine Geriatric Medicine
DX: R25.2 Cramp and spasm (principal)
CPT/HCPCS: 36415; 80048; 83735

== ENCOUNTER 2023-03-27 15:09 | Outpatient (AMB) | payer MEDICAID, SELFPAY ==
--- NOTE | 2023-03-27 15:34 | MHC.AMDMED ---
Intake Intake Visit Reasons: f/u Type 2 DM/CONFIRMED Adjunct Psychology Faculty Member Required: No Accompanied by: Self / Same As Patient Allergies pollen Allergy (Mild, Uncoded 12/05/22 11:46) ichy eyes HPI Comprehensive Diabetes Asmnt Most Recent Diabetes Results: Microalb/Creat Ratio 108.2 ug/mg cr (<30) H 03/20/23 Cholesterol 134 mg/dL (<200) 03/20/23 HDL Cholesterol 38 mg/dL (>40) L 03/20/23 Triglycerides 159 mg/dL (<150) H 03/20/23 Creatinine 1.08 mg/dL (0.5-1.4) 03/26/23 Blood Urea Nitrogen 13 mg/dL (9-16) 03/26/23 Sodium 137 mmol/L (135-145) 03/26/23 Potassium 4.0 mmol/L (3.3-5.1) 03/26/23 Chloride 102 mmol/L (96-108) 03/26/23 Carbon Dioxide 25 mmol/L (22-29) 03/26/23 Calcium 9.0 mg/dL (8.4-10.2) 03/26/23 [facility] Medical History (Updated 02/15/23 @ 10:31 by Rene Sánchez MD) Foot drop, left Lumbar radiculopathy, chronic Diabetic neuropathy associated with diabetes mellitus due to underlying condition Abnormal ECG Type 2 diabetes mellitus with diabetic polyneuropathy Obesity due to excess calories Hx of pancreatitis Acid reflux Elevated alkaline phosphatase measurement Asthma MAURIZIO on CPAP Morbid obesity Degeneration of L4-L5 intervertebral disc Diabetes Anemia Apnea, sleep Dyspnea on exertion HTN (hypertension) Obstructive sleep apnea Surgical History Hx of cholecystectomy History of back surgery Family History Father Diabetes Hearing loss Mother CVD (cardiovascular disease) Thyroid condition Paternal Grandmother Diabetes Paternal Aunt Diabetes Sister No problems noted. Sister No problems noted. 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 Assessment & Plan Assessment & Plan (1) Type 2 diabetes mellitus with diabetic polyneuropathy: Comment: Pt gaining weight, Noted weight gain of 11 lbs since last nutrition visit in 01/2021 Code(s): E11.42 - Type 2 diabetes mellitus with diabetic polyneuropathy Qualifiers: Diabetes mellitus ocean transportation intermediary insulin use: with ocean transportation intermediary use Qualified Code(s): E11.42 - Type 2 diabetes mellitus with diabetic polyneuropathy; Z79.4 - ocean transportation intermediary (current) use of insulin Plan: Insulin/Incretin?Mimetic Education visit Patient will be starting Humalog sliding scale before meals 150-200 mg/dL take 6 units 201-250 mg/dL take 8 units 251 to 300 mg/dL take 10 units Patient Education: Patient was instructed and provided with demonstration of the following: Insulin action and Incretin Mimetics medication storage how to set up medication pen/or syringe and vial Handwashing insulin injection site rotation Site rotation recognizing hypertrophy Testing blood glucose Removing and disposing needle from insulin pen Safe disposal of sharps Target blood sugar Signs/ symptoms/treatment of hypoglycemia/hyperglycemia expiration of open insulin pen Patient verbalized understanding of education provided and was able to demonstrate proper use of inject into injection pillow Reviewed rule of 15s to treat glucose under 70 mg/dL All questions were answered and patient was advised to contact the office with any questions or concerns. Patient Instructions: DIABETES PROBLEMS HOMECARE INSTRUCTIONS Hypo instructions ? When first signs of insulin reaction occur, immediately drink orange juice or cola, or suck on a sugar cube, but only if the person is conscious. ? Person with diabetes should continue taking insulin when ill, unless he/she is not able to eat.? Regularly check blood sugar or urine for sugar and acetone during illness. ? Exercise regularly. ? Pay special attention to the feet.? Avoid cuts, sores, blisters, ill-fitting shoes, or going barefoot.? Promptly treat injuries to the feet. ? Take medications as directed by physician. ? Drink extra water or noncaffeinated, nonsugared drinks to prevented hydration. Signs and symptoms of low blood sugar (happen quickly) Each person's reaction to low blood sugar is different. Learn your own signs and symptoms of when your blood sugar is low. Taking time to write these symptoms down may help you learn your own symptoms of when your blood sugar is low. From milder, more common indicators to most severe, signs and symptoms of low blood sugar include: Feeling shaky Being nervous or anxious Sweating, chills and clamminess Irritability or impatience Confusion Fast heartbeat Feeling lightheaded or dizzy Hunger Nausea Color draining from the skin (pallor) Feeling Sleepy Feeling weak or having no energy Blurred/impaired vision Tingling or numbness in the lips, tongue, or cheeks Headaches Coordination problems, clumsiness Hypoglycemia or blood glucose under 70 mg/dL use the rule of 15's: If you have your blood glucose meter test your blood glucose, if you do not have your meter still follow below instruction: Keep quick-sugar foods with you at all times.? Take 15 grams of fast acting carbohydrates. Examples are 4 ounces of fruit juice or regular soda pop, 8 ounces fat-free milk, 1 tablespoon of table sugar, honey or corn syrup, jam, one miniature box of raisins, 7-8 gumdrops or Life Savers candy, 4 glucose tablets, and glucose gel.? Retest blood glucose in 15 minutes, if blood glucose is still under 80 ,repeat rule of 15's. If blood glucose is under 50, take 30 grams of fast acting carbohydrates If you are having hypoglycemia, or insulin reaction, more that a few times a week, call MD or graduate civil engineer Follow-up with Diabetes Education nurse in 1 month Coding Level of Care Code Est Pt Level 1 (19579) Diagnoses Type 2 diabetes mellitus with diabetic polyneuropathy, with long-term current use of insulin E11.42; Z79.4 Diabetes mellitus ocean transportation intermediary insulin use: with residential use
== END 2023-03-27 15:35 | disposition home or self-care (01) ==
PROVIDERS: PCP Internal Medicine Geriatric Medicine; Visit Provider Registered Nurse Diabetes Educator
DX: E11.42 Type 2 diabetes mellitus with diabetic polyneuropathy (principal); Z79.4 Long term (current) use of insulin

== ENCOUNTER → 2023-03-27 15:09 | Outpatient (BNVA) | payer MEDICAID, SELFPAY | PROVIDERS: PCP Internal Medicine Geriatric Medicine; Visit Provider Registered Nurse Diabetes Educator | DX: E11.42 Type 2 diabetes mellitus with diabetic polyneuropathy (principal); Z79.4 Long term (current) use of insulin | CPT/HCPCS: 99211 ==

== ENCOUNTER 2023-04-10 08:57 | Outpatient (REF) | payer MEDICAID, SELFPAY ==
[2023-04-10 12:23] LABS: Magnesium 1.7 mg/dL (1.6-2.6)
== END 2023-04-10 08:58 | disposition home or self-care (01) ==
LOC: HO.HHCL 08:57
PROVIDERS: Visit Provider Internal Medicine Geriatric Medicine
DX: R25.2 Cramp and spasm (principal)
CPT/HCPCS: 36415; 83735

== ENCOUNTER 2023-05-08 14:45 | Outpatient (REF) | payer MEDICAID, SELFPAY ==
[2023-05-08 14:48] VITALS: BP 162/78; PULSE 100; RESP 18; TEMP 36.7; O2SAT 100
== END 2023-05-08 14:46 | disposition home or self-care (01) ==
LOC: HO.MDS 14:45
PROVIDERS: Visit Provider Internal Medicine Pulmonary Disease
DX: J45.50 Severe persistent asthma, uncomplicated (principal)
CPT/HCPCS: 96372; J0517

== ENCOUNTER 2023-05-09 14:01 | Outpatient (AMB) | payer MEDICAID, SELFPAY ==
--- NOTE | 2023-05-09 14:22 | A.OFFVIS_ITS ---
Intake Intake Visit Reasons: DM 30 mins Dairy Consultant Required: No Accompanied by: Self / Same As Patient Allergies pollen Allergy (Mild, Uncoded 12/05/22 11:46) ichy eyes HPI Comprehensive Diabetes Asmnt Most Recent Diabetes Results: Microalb/Creat Ratio 108.2 ug/mg cr (<30) H 03/20/23 Cholesterol 134 mg/dL (<200) 03/20/23 HDL Cholesterol 38 mg/dL (>40) L 03/20/23 Triglycerides 159 mg/dL (<150) H 03/20/23 Creatinine 1.08 mg/dL (0.5-1.4) 03/26/23 Blood Urea Nitrogen 13 mg/dL (9-16) 03/26/23 Sodium 137 mmol/L (135-145) 03/26/23 Potassium 4.0 mmol/L (3.3-5.1) 03/26/23 Chloride 102 mmol/L (96-108) 03/26/23 Carbon Dioxide 25 mmol/L (22-29) 03/26/23 Calcium 9.0 mg/dL (8.4-10.2) 03/26/23 [facility] Medical History (Updated 02/15/23 @ 10:31 by Rene Sánchez MD) Foot drop, left Lumbar radiculopathy, chronic Diabetic neuropathy associated with diabetes mellitus due to underlying condition Abnormal ECG Type 2 diabetes mellitus with diabetic polyneuropathy Obesity due to excess calories Hx of pancreatitis Acid reflux Elevated alkaline phosphatase measurement Asthma MAURIZIO on CPAP Morbid obesity Degeneration of L4-L5 intervertebral disc Diabetes Anemia Apnea, sleep Dyspnea on exertion HTN (hypertension) Obstructive sleep apnea Surgical History Hx of cholecystectomy History of back surgery Family History Father Diabetes Hearing loss Mother CVD (cardiovascular disease) Thyroid condition Paternal Grandmother Diabetes Paternal Aunt Diabetes Sister No problems noted. Sister No problems noted. 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 Assess patient education level/literacy/barriers Patient questions/concerns, patient's glucose still running above target. Patient reports he has not missing doses of mealtime insulin See recommendation to patient's new insulin plan below The patient met all learning objectives and was able to verbalize understanding and provide teach back of education topics discussed . The patient was provided with the opportunity to ask questions and all questions were answered. Topics covered in today?s session included: Patient is using [employer] Patient's average glucose for the past 2 weeks 237 mg/dL Patient above target 66% Patient at target 34% Patient below target 0% Insulin/Injectables (If applicable) * Storage/care of insulin?? * Injection sites? * Site rotation? * Onset, peak, duration * Drawing up insulin? * Injecting insulin/other injectables? * Sharps disposal Continuous blood glucose monitoring (if applicable) Hypoglycemia and Hyperglycemia * Signs and symptoms? * Causes?? * Treatment? * Preventing hypoglycemia? * When to seek medical attention * Blood glucose targets and how you feel when your blood glucose is in and out of your target ranges. * Monitoring and knowing your A1C. * What can make blood glucose go up and down and preventing high and low blood glucose. * Review of blood sugar targets in expected goal range and outside of expected goal range. * Problem solving and preventing hyper/hypoglycemia. * Sick day management of diabetes. * Using blood sugar results in decision making process in managing diabetes. ?Patient was receptive to information provided and participated in the discFungos nava. Asked?appropriate questions and demonstrated good understanding of the topics discussed.? ? Educational Materials: The patient was provided with the following written educational materials: Target Goal handout Smart Goal: Patient will increase Humalog sliding scale as directed Patient Response to instructions: Comprehension of Instructions: Good Readiness to make changes:? Contemplation How confident they feel about making changes: Positive Patient Instructions: New sliding scale: Humalog sliding scale before meals 150-200 mg/dL take 8 units 201-250 mg/dL take 10 units 251 to 300 mg/dL take 12 units Follow-up with hospital educator in 1 month Coding Level of Care Code Est Pt Level 1 (34983) Diagnoses Type 2 diabetes mellitus with diabetic polyneuropathy, with long-term current use of insulin E11.42; Z79.4 Diabetes mellitus police clerk insulin use: with chcf use
== END 2023-05-09 14:39 | disposition home or self-care (01) ==
PROVIDERS: PCP Internal Medicine Geriatric Medicine; Visit Provider Registered Nurse Diabetes Educator
DX: E11.42 Type 2 diabetes mellitus with diabetic polyneuropathy (principal); Z79.4 Long term (current) use of insulin

== ENCOUNTER → 2023-05-09 14:01 | Outpatient (BNVA) | payer MEDICAID, SELFPAY | PROVIDERS: PCP Internal Medicine Geriatric Medicine; Visit Provider Registered Nurse Diabetes Educator | DX: E11.42 Type 2 diabetes mellitus with diabetic polyneuropathy (principal); Z79.4 Long term (current) use of insulin | CPT/HCPCS: 99211 ==

== ENCOUNTER 2023-05-09 14:57 | Outpatient (REF) | payer MEDICAID, SELFPAY ==
[2023-05-09 18:14] LABS: Alanine Aminotransferase 27 U/L (0-40); Albumin Level 3.7 g/dL (3.5-5.0); Alkaline Phosphatase 167 U/L (39-117); Anion Gap 14 (12-20); Aspartate Amino Transferase 33 U/L (5-37); Bilirubin Total 0.3 mg/dL (0.0-1.0); Blood Urea Nitrogen 16 mg/dL (9-16); Calcium 9.2 mg/dL (8.4-10.2); Carbon Dioxide 26 mmol/L (22-29); Chloride 101 mmol/L (96-108); Estimated Glomerular Filt Rate 57; Glucose Random 187 mg/dL (60-115); Magnesium 1.9 mg/dL (1.6-2.6); Potassium 4.2 mmol/L (3.3-5.1); Sodium 137 mmol/L (135-145); Total Protein 7.5 g/dL (6.5-8.0)
== END 2023-05-09 14:58 | disposition home or self-care (01) ==
LOC: HO.HHCL 14:57
PROVIDERS: Visit Provider Internal Medicine Geriatric Medicine
DX: I10 Essential (primary) hypertension (principal); R79.0 Abnormal level of blood mineral
CPT/HCPCS: 36415; 80053; 83735

== ENCOUNTER 2023-06-11 14:02 | Outpatient (AMB) | payer MEDICAID, SELFPAY ==
--- NOTE | 2023-06-11 14:25 | MHC.AMDMED ---
Intake Intake Visit Reasons: DM Hydrogeology Professor Required: No Accompanied by: Self / Same As Patient Allergies pollen Allergy (Mild, Uncoded 12/05/22 11:46) ichy eyes HPI Comprehensive Diabetes Asmnt Most Recent Diabetes Results: Microalb/Creat Ratio 108.2 ug/mg cr (<30) H 03/20/23 Cholesterol 134 mg/dL (<200) 03/20/23 HDL Cholesterol 38 mg/dL (>40) L 03/20/23 Triglycerides 159 mg/dL (<150) H 03/20/23 Creatinine 1.32 mg/dL (0.5-1.4) 05/09/23 Blood Urea Nitrogen 16 mg/dL (9-16) 05/09/23 Sodium 137 mmol/L (135-145) 05/09/23 Potassium 4.2 mmol/L (3.3-5.1) 05/09/23 Chloride 101 mmol/L (96-108) 05/09/23 Carbon Dioxide 26 mmol/L (22-29) 05/09/23 Calcium 9.2 mg/dL (8.4-10.2) 05/09/23 AST 33 U/L (5-37) 05/09/23 ALT 27 U/L (0-40) 05/09/23 Total Protein 7.5 g/dL (6.5-8.0) 05/09/23 Albumin 3.7 g/dL (3.5-5.0) 05/09/23 [facility] Medical History (Updated 02/15/23 @ 10:31 by Rene Sánchez MD) Foot drop, left Lumbar radiculopathy, chronic Diabetic neuropathy associated with diabetes mellitus due to underlying condition Abnormal ECG Type 2 diabetes mellitus with diabetic polyneuropathy Obesity due to excess calories Hx of pancreatitis Acid reflux Elevated alkaline phosphatase measurement Asthma MAURIZIO on CPAP Morbid obesity Degeneration of L4-L5 intervertebral disc Diabetes Anemia Apnea, sleep Dyspnea on exertion HTN (hypertension) Obstructive sleep apnea Surgical History Hx of cholecystectomy History of back surgery Family History Father Diabetes Hearing loss Mother CVD (cardiovascular disease) Thyroid condition Paternal Grandmother Diabetes Paternal Aunt Diabetes Sister No problems noted. Sister No problems noted. 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 1% Hyperglycemia:? 40% Time in Range:? 59% Average glucose for the last 2 weeks?170 mg/dL Patient's average glucose has improved from 237 mg/dL in April 2023 Patient has been following new sliding scale, he had several episodes of hypoglycemia on 06/11/2023 Reviewed in how to treat hypoglycemia with rule of 15s, patient does report he increased each step in sliding scale because he felt his glucose are still running high after meals. Recommended to patient that he decrease carbohydrate portion of meals, in an effort to bring average glucose down to 150 mg/dL Reviewed how to interpret trend arrows Reminded patient that to check finger sticks if symptoms do not match sensor reading. Discussed lag time between finger stick and sensor data.? Patient able to insert sensor independently at home without issue.? Patient reports he increased each step in sliding scale New Humalog sliding scale before meals 150-200 mg/dL take 9 units 201-250 mg/dL take 11 units 251 to 300 mg/dL take 13 units Coding Level of Care Code Est Pt Level 1 (54041) Diagnoses Type 2 diabetes mellitus with diabetic polyneuropathy, with long-term current use of insulin E11.42; Z79.4 Diabetes mellitus nursing home insulin use: with roasterman use
== END 2023-06-11 14:28 | disposition home or self-care (01) ==
PROVIDERS: PCP Internal Medicine Geriatric Medicine; Visit Provider Registered Nurse Diabetes Educator
DX: E11.42 Type 2 diabetes mellitus with diabetic polyneuropathy (principal); Z79.4 Long term (current) use of insulin

== ENCOUNTER → 2023-06-11 14:02 | Outpatient (BNVA) | payer MEDICAID, SELFPAY | PROVIDERS: PCP Internal Medicine Geriatric Medicine; Visit Provider Registered Nurse Diabetes Educator | DX: E11.42 Type 2 diabetes mellitus with diabetic polyneuropathy (principal); Z79.4 Long term (current) use of insulin | CPT/HCPCS: 99211 ==

== ENCOUNTER → 2023-06-18 07:30 | Outpatient (BNV) | payer MEDICAID, SELFPAY | PROVIDERS: Admitting Provider Internal Medicine; Emergency Provider Student in an Organized Health Care Education/Training Program; Visit Provider Internal Medicine Cardiovascular Disease | DX: R00.0 Tachycardia, unspecified (principal) | CPT/HCPCS: 93010 ==

== ENCOUNTER 2023-06-18 22:31 | Inpatient (IN) | payer MEDICAID, SELFPAY ==
--- NOTE | ~2023-06-18 | XR_ITS ---
EXAMINATION: XR CHEST CLINICAL INFORMATION: Shortness of breath. COMPARISON: 06/13/2021 TECHNIQUE: Frontal view of the chest was obtained. FINDINGS: No significant abnormality is noted involving the heart, lungs, mediastinum, bony thorax or soft tissues. XR/XR chest 1V IMPRESSION: Unremarkable examination.
--- NOTE | ~2023-06-18 | CT_ITS ---
EXAMINATION: CT ANGIOGRAM OF THE CHEST WITH AND WITHOUT CONTRAST (CT PULMONARY ANGIOGRAM FOR PE) CLINICAL INFORMATION: Reason for Exam acute hypoxia COMPARISON: None available. TECHNIQUE: Prior to contrast administration, noncontrast localization images were obtained. Subsequently, multidetector volumetric imaging was performed from the thoracic inlet to below the diaphragms following the administration of 85 mL Omnipaque 350 intravenous contrast. No contrast reaction reported Sagittal, coronal, and MIP oblique sagittal reformatted images were obtained on the CT workstation, uploaded to PACS, and reviewed. This CT examination was performed using dose optimization techniques as appropriate, variously including the following: *Automated exposure control *Adjustment of mA and/or kV according to patient size (this includes techniques or standardized protocols for targeted exams where dose is matched to indication/reason for exam; i.e. extremities or head) *Use of iterative reconstruction technique Total exam dose-length product 480 mGy-cm FINDINGS: QUALITY OF STUDY/CONTRAST BOLUS: Satisfactory. PULMONARY ARTERIES: No pulmonary emboli. THORACIC AORTA: No aneurysm. LUNG: No focal consolidation, nodules or masses. PLEURA: No pleural effusion or pneumothorax. MEDIASTINUM: Normal heart size. No pericardial effusion. No hilar or mediastinal lymphadenopathy. No evidence of septal bowing or right heart strain. CORONARY ARTERY CALCIFICATION: Mild. CHEST WALL/AXILLA: No axillary or internal mammary lymphadenopathy. OSSEOUS STRUCTURES: No acute or suspicious osseous abnormality. UPPER ABDOMEN: There are partially imaged upper retroperitoneal lymph nodes measuring up to 2.6 cm. No reflux of contrast into the hepatic veins to suggest elevated right heart pressures. CT/CT angio chest PE protocol IMPRESSION: 1. No evidence of pulmonary embolism. 2. No acute pulmonary disease. 3. Partially imaged upper retroperitoneal lymph nodes measuring up to 2.6 cm. VTE: negative.
--- NOTE | ~2023-06-18 | US_ITS ---
EXAMINATION: US ABDOMEN COMPLETE CLINICAL INFORMATION: Follow-up of cirrhosis. Screening for HCC and ascites. COMPARISON: Ultrasound abdomen complete 07/17/2021 and 12/30/2020. TECHNIQUE: Real-time imaging of the abdominal viscera. Technically limited study secondary to body habitus. FINDINGS: PANCREAS: The pancreas is not visualized. It is obscured by overlying bowel gas. ABDOMINAL AORTA: The visualized abdominal aorta is normal in appearance INFERIOR VENA CAVA: Visualized portions are normal. LIVER: The liver is enlarged, measuring 21 cm in length. It demonstrates increased echogenicity. The liver contour is mildly irregular. No focal hepatic lesion. There is no intrahepatic biliary duct dilatation seen. GALLBLADDER: Surgically absent. COMMON BILE DUCT: Normal in caliber measuring 0.5 cm in diameter. RIGHT KIDNEY: No hydronephrosis. No renal calculi or focal parenchymal lesions. The kidney measures 13.6 cm in maximum dimension. LEFT KIDNEY: Normal. No hydronephrosis. No renal calculi or focal parenchymal lesions. The kidney measures 13.2 cm in maximum dimension. SPLEEN: Normal. The spleen measures 11.4 cm in maximum dimension. FREE FLUID: None. US/US abdomen complete IMPRESSION: Heterogeneous liver echotexture and slightly irregular contour of the liver questionable for hepatocellular disease and mild cirrhotic change. No focal hepatic lesion. There is no intrahepatic biliary duct dilatation seen. No ascites.
--- NOTE | 2023-06-18 07:30 | ECG_ITS ---
Test Reason : RESIPRATORY DISTRESS Blood Pressure : / mmHG Vent. Rate : 141 BPM Atrial Rate : 141 BPM P-R Int : 132 ms QRS Dur : 070 ms QT Int : 276 ms P-R-T Axes : 042 025 106 degrees QTc Int : 422 ms Poor data quality Sinus tachycardia Low voltage QRS Nonspecific ST and T wave abnormality Abnormal ECG When compared with ECG of 13-JUN-2021 10:13, No significant changes seen Referred By: Cristal Geiger Electronically Signed By:MENDY MENDIOLA MD
[2023-06-18 22:34] VITALS: BP 171/81; PULSE 142; RESP 24; TEMP 35.9; O2SAT 76; BMI 45.2
--- NOTE | 2023-06-18 22:40 | ED.ASTHMA ---
HPI - Asthma General Chief Complaint: Dyspnea Stated Complaint: asthma Time Seen by Provider: 06/18/23 22:36 Source: patient Mode of arrival: ambulatory History of Present Illness HPI Narrative: 53-year-old male with history of asthma states he has had progressive trouble breathing tonight, took several puffs of his albuterol inhaler prior to arrival but was unable to have any noticeable improvement, noted to be 70% oxygenation in the triage area and immediately brought back while being placed on non-rebreather. He denies any constitutional symptoms such as fever, chills, nausea, vomiting, sick contacts. Related Data Home Medications ?Medication ?Instructions ?Recorded ?Confirmed acetaminophen 500 mg tablet 1,000 mg PO Q6H PRN 05/24/20 12/05/22 aspirin 81 mg tablet,delayed 81 mg PO DAILY 05/24/20 12/05/22 release (Adult Low Dose Aspirin) glimepiride 2 mg tablet 2 mg PO DAILY 05/24/20 12/05/22 ketoconazole 2 % topical gel 1 appl topical DAILY 05/24/20 12/05/22 lisinopril 40 mg tablet 40 mg PO DAILY 05/24/20 12/05/22 metformin 1,000 mg tablet 1,000 mg PO BID 05/24/20 12/05/22 pravastatin 20 mg tablet 20 mg PO BEDTIME 05/24/20 12/05/22 albuterol sulfate 2.5 mg/3 mL 2.5 mg inhalation Q4-6H PRN 06/07/20 12/05/22 (0.083 %) solution for nebulization albuterol sulfate 90 mcg/actuation 2 puff inhalation Q6H PRN 06/07/20 12/05/22 aerosol inhaler (ProAir HFA) amitriptyline 10 mg tablet 10 mg PO BEDTIME 11/30/20 12/05/22 blood-glucose meter (FreeStyle 11/30/20 12/05/22 Lite Meter kit) tadalafil 10 mg tablet (Cialis) 20 mg PO DAILY PRN 11/30/20 12/05/22 omeprazole 20 mg capsule,delayed 20 mg PO DAILY 12/14/20 12/05/22 release furosemide 40 mg tablet 80 mg PO BID 08/18/21 12/05/22 ferrous sulfate 325 mg (65 mg 325 mg PO Q OTHER DAY 01/11/22 12/05/22 iron) tablet (FeroSul) gabapentin 300 mg capsule 300 mg PO BEDTIME 01/11/22 12/05/22 amlodipine 10 mg tablet 10 mg PO DAILY 05/01/22 12/05/22 insulin syringe-needle U-100 1 mL #100 ea 05/01/22 12/05/22 30 gauge x 7/16 lancets 28 gauge (FreeStyle 05/01/22 12/05/22 Lancets) magnesium oxide 400 mg (241.3 mg mg PO 02/15/23 magnesium) tablet spironolactone 25 mg tablet 25 mg PO DAILY 02/15/23 Previous Rx's ?Medication ?Instructions ?Recorded iron,carbonyl 65 mg-vitamin C 125 1 tab PO DAILY #30 tabs 06/07/21 mg tablet,delayed release (Vitron-C) cyclobenzaprine 5 mg tablet 5 mg PO TID PRN muscle spasm 7 10/10/22 days #21 tabs flash glucose scanning reader #1 ea 12/19/22 (FreeStyle Monty 2 Perry) insulin glargine 100 unit/mL 80 unit (0.8 mL) subcut DAILY #30 03/10/23 subcutaneous solution (Lantus mL U-100 Insulin) insulin lispro 100 unit/mL 10 unit (0.1 mL) subcut TID #15 mL 03/26/23 subcutaneous pen (Humalog KwikPen (U-100) Insulin) pen needle, diabetic 32 gauge x #100 ea 03/27/23 5/16 (Comfort EZ Pen [place]) blood sugar diagnostic (FreeStyle #100 ea 04/25/23 Lite Strips) flash glucose sensor (FreeStyle #2 ea 04/26/23 Monty 2 Sensor kit) Allergies Allergy/AdvReac Type Severity Reaction Status Date / Time pollen Allergy Mild ichy eyes Uncoded 06/18/23 22:40 Review of Systems Review of Systems: Pertinent positives and negatives as stated in [facility] Past Medical History Source: nursing notes reviewed Medical History Foot drop, left Lumbar radiculopathy, chronic Diabetic neuropathy associated with diabetes mellitus due to underlying condition Abnormal ECG Type 2 diabetes mellitus with diabetic polyneuropathy Obesity due to excess calories Hx of pancreatitis Acid reflux Elevated alkaline phosphatase measurement Asthma MAURIZIO on CPAP Morbid obesity Degeneration of L4-L5 intervertebral disc Diabetes Anemia Apnea, sleep Dyspnea on exertion HTN (hypertension) Obstructive sleep apnea Surgical History Hx of cholecystectomy History of back surgery Family History Family History Father Diabetes Hearing loss Mother CVD (cardiovascular disease) Thyroid condition Paternal Grandmother Diabetes Paternal Aunt Diabetes Sister No problems noted. Sister No problems noted. 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 GENERAL: Elevated BMI, Well developed, well nourished, in no acute distress. HEAD: Normocephalic/atraumatic EYES: PERRLA, EOMI intact without pain, no nystagmus/pallor/icterus noted EARS: Ext canals without abnormality NOSE: Nares patent bilateral OROPHARYNX: no oral lesions noted, posterior pharynx clear NECK: Supple, no adenopathy LUNGS: Tachypnea present, minimal air movement, increased work of breathing SpO2<76> improved to 95% on 100% non-rebreather CARDIOVASCULAR: Regular rate and rhythm without noted murmurs ABDOMEN: Soft, non-tender, non-distended with bowel sounds. MUSCULOSKELETAL: No tenderness, deformities, or effusions noted on gross inspection. EXTREMITIES: No cyanosis, clubbing or edema. SKIN: Inspection of the skin reveals no rashes NEUROLOGIC: Alert and oriented x 4. Strength and sensation to light touch were grossly intact x 4. Medications Administered Discontinued Medications Generic Name Dose Route Start Last Admin Trade Name Sravanthi PRN Reason Stop Dose Admin Albuterol Sulfate 7.5 mg/ 0 mg 06/18/23 23:16 06/18/23 23:23 Albuterol/Ipratropium 3 ml INHALE 06/18/23 23:17 3 each ONCE ONE Administration Methylprednisolone Sodium Succinate 125 mg 06/18/23 22:36 06/18/23 22:53 Methylprednisolone Sod Succ 125 Mg/2 Ml Vial IVPUSH 06/18/23 22:37 125 mg ONCE ONE Administration Medical Decision Making Medical Decision Making [facility] Narrative: 53-year-old male with history and clinical presentation, DDX: Acute respiratory failure secondary to severe asthma exacerbation 2331: Lactic acidosis secondary to multiple nebulized treatments I reviewed investigations and hematologic indices do not demonstrate a leukocytosis, patient has stable normocytic anemia, no thrombocytopenia. VBG does demonstrate mild hypercapnia with corresponding pH-7.31. Chemistry indices do not demonstrate MATHEW or electrolyte/acute liver enzyme derangements. Chest x-ray not significant for infiltrate or venous congestion otherwise my interpretation is in agreement with radiology's impression. Viral testing negative for influenza/RSV/COVID-19. 0131: I discussed the case with inpatient hospitalist who accepts admission. Differential Diagnosis Differential Diagnoses: The differential diagnosis associated with the presentation includes Please see the discussion above Admission/Observation Consideration of admission/observation: Escalation of care including admission/observation considered Please see the discussion above Consult Healthcare Provider Management of the patient was discussed with: Hospitalist Please see the discussion above Lab Data [facility] Lab Attestation statement: I reviewed the patient's lab results. Please see the discussion above 06/18/23 22:56 06/18/23 22:56 Labs: Lab Results 06/18/23 06/18/23 06/18/23 Range/Units 22:56 23:00 23:07 WBC 9.5 (4.8-10.8) X10*3/uL RBC 3.58 L (4.60-5.80) X10*6/uL Hgb 9.1 L D (14.0-18.0) g/dl Hct 29.2 L (42.0-52.0) % MCV 81.6 (80.0-98.0) fL MCH 25.4 L (27.0-33.0) pg MCHC 31.2 (31.0-36.0) g/dl RDW 13.7 (11.0-16.0) % Plt Count 381 (160-400) X10*3/uL MPV 8.4 L (9.4-12.4) fL Immature Gran % (Auto) 0.6 H (0.0-0.4) % Neut % (Auto) 69.6 (45-73) % Lymph % (Auto) 22.6 (20-40) % [place] % (Auto) 6.9 (2-11) % Eos % (Auto) 0.0 (0-4) % Baso % (Auto) 0.3 (0-2) % Lymph # (Auto) 2.2 (1.2-4.9) X10*3/uL [place] # (Auto) 0.7 (0.1-1.2) X10*3/uL Eos # (Auto) 0.0 (0.0-0.4) X10*3/uL Baso # (Auto) 0.0 (0.0-0.2) X10*3/uL Abs Immat Gran (auto) 0.06 H (0.00-0.03) X10*3/uL Absolute Neuts (auto) 6.6 (2.0-8.3) x10*3/uL Absolute Nucleated RBC 0.030 H (0.0-0.012) X10*3/uL Nucleated RBC % (auto) 0.3 H (0.0-0.2) /100WBC VBG pH 7.31 L (7.32-7.43) VBG pCO2 57 mmHg VBG pO2 51 mmHg VBG HCO3 29 H (22-26) mmol/L VBG O2 Saturation 73.0 % VBG Base Excess 2.4 mmol/L Sodium 138 (135-145) mmol/L Potassium 5.1 D (3.3-5.1) mmol/L Chloride 102 (96-108) mmol/L Carbon Dioxide 25 (22-29) mmol/L Anion Gap 16 (12-20) BUN 15 (9-16) mg/dL Creatinine 1.29 (0.5-1.4) mg/dL Estim Creat Clear Calc 83.4 Estimated GFR 58 Random Glucose 107 (60-115) mg/dL Lactic Acid 2.6 H* (0.5-2.0) mmol/L Calcium 9.5 (8.4-10.2) mg/dL Total Bilirubin 0.3 (0.0-1.0) mg/dL AST 80 H (5-37) U/L ALT 38 (0-40) U/L Alkaline Phosphatase 169 H (39-117) U/L Total Protein 8.4 H (6.5-8.0) g/dL Albumin 3.9 (3.5-5.0) g/dL Influenza Type A (PCR) NEGATIVE (Negative) Influenza Type B (PCR) NEGATIVE (Negative) RSV RNA Qual (PCR) NEGATIVE (Negative) SARS-CoV-2 RNA (RT-PCR) NEGATIVE (Negative) Independent Interpretation I performed an independent interpretation of an: EKG Interpretation: Sinus tachycardia, HR-141, STEMI, NH/QRS/QTC are within normal limits. Radiology Impression Discussion of test interpretation with radiology: I have reviewed the radiologist's reading. Radiologist Impression: Please see the discussion above External Record Review External record reviewed: Office record, Outpatient record, Prior outpatient labs and Prior outpatient radiology Chronic Conditions Patient?s care impacted by: Diabetes and Hypertension Morbid obesity, MAURIZIO, cirrhosis Critical Care Time Critical Care Time Critical Care Time: Yes Total Critical Care Time: 90 Attestation: I personally attest to this time spent taking care of the patient. Discharge Plan Discharge Clinical Impression: Acute hypoxemic respiratory failure, Asthma exacerbation Patient Disposition: Admitted As Inpatient Prescriptions: No Action Vitron-C 65 mg iron- 125 mg tablet,delayed release (DR/EC) 1 tab PO DAILY Qty: 30 3RF Rx Instructions: swallow whole; do not chew/break/dissolve/open (DME) FreeStyle Monty 2 Perry Misc See Rx Instructions .ROUTE .COMPLEX Qty: 1 0RF Dose Instruction: DIRECTED Rx Instructions: DIRECTED insulin glargine [Lantus U-100 Insulin] 100 unit/mL solution 80 unit subcut DAILY Qty: 30 5RF (DME) pen needle, diabetic [Comfort EZ Pen Cromona] 32 gauge x 5/16 needle See Rx Instructions .Route Qty: 100 5RF Rx Instructions: As directed injects 4 times a day (DME) FreeStyle Lite Strips Strip See Rx Instructions .Route Qty: 100 3RF Rx Instructions: As directed 3 times a day (DME) FreeStyle Monty 2 Sensor Kit See Rx Instructions .ROUTE .COMPLEX Qty: 2 5RF Dose Instruction: USE DIRECTED. CHANGE EVERY 14 DAYS Rx Instructions: USE DIRECTED. CHANGE EVERY 14 DAYS cyclobenzaprine 5 mg tablet 5 mg PO TID PRN (Reason: muscle spasm) 7 Days Qty: 21 0RF acetaminophen 500 mg tablet 1,000 mg PO Q6H PRN ketoconazole 2 % gel 1 appl topical DAILY aspirin [Adult Low Dose Aspirin] 81 mg tablet,delayed release (DR/EC) 81 mg PO DAILY metformin 1,000 mg tablet 1,000 mg PO BID lisinopril 40 mg tablet 40 mg PO DAILY pravastatin 20 mg tablet 20 mg PO BEDTIME glimepiride 2 mg tablet 2 mg PO DAILY tadalafil [Cialis] 10 mg tablet 20 mg PO DAILY PRN Rx Instructions: administer approximately 30min before sexual activity; do not use more than 1 dose per 24hrs albuterol sulfate [ProAir HFA] 90 mcg/actuation HFA aerosol inhaler 2 puff inhalation Q6H PRN albuterol sulfate 2.5 mg /3 mL (0.083 %) solution for nebulization 2.5 mg inhalation Q4-6H PRN (DME) blood-glucose meter [FreeStyle Lite Meter] Kit See Rx Instructions .Route Rx Instructions: As directed amitriptyline 10 mg tablet 10 mg PO BEDTIME (DME) lancets [FreeStyle Lancets] 28 gauge misc See Rx Instructions .Route Rx Instructions: As directed 3 times a day furosemide 40 mg tablet 80 mg PO BID amlodipine 10 mg tablet 10 mg PO DAILY (DME) insulin syringe-needle U-100 1 mL 30 gauge X 7/16 syringe See Rx Instructions .ROUTE DAILY Qty: 100 Rx Instructions: As directed once a day omeprazole 20 mg capsule,delayed release(DR/EC) 20 mg PO DAILY ferrous sulfate [FeroSul] 325 mg (65 mg iron) tablet 325 mg PO Q OTHER DAY gabapentin 300 mg capsule 300 mg PO BEDTIME insulin lispro [Humalog KwikPen Insulin] 100 unit/mL insulin pen 10 unit subcut TID Qty: 15 5RF spironolactone 25 mg tablet 25 mg PO DAILY magnesium oxide 400 mg (241.3 mg magnesium) tablet PO Print Language: Serbian
[2023-06-18] MEDS: methylPREDNISolone Sod Succ 125 MG/2 ML VIAL IVPUSH (22:53)
--- NOTE | 2023-06-18 22:57 | PC.NURSE ---
Pt medicated per apr. Plan of care ongoing.
[2023-06-18 23:00] LABS: MANUAL DIFF FLAG NO
[2023-06-18 23:02] LABS: Basophils Percent Auto 0.3 % (0-2); Hematocrit 29.2 % (42.0-52.0); Hemoglobin 9.1 g/dl (14.0-18.0); Imm Gran Abs Auto 0.06 X10*3/uL (0.00-0.03); Imm Gran Pct Auto 0.6 % (0.0-0.4); Lymphocytes Absolute Auto 2.2 X10*3/uL (1.2-4.9); Lymphocytes Percent Auto 22.6 % (20-40); Mean Corpuscular HGB Conc 31.2 g/dl (31.0-36.0); Mean Corpuscular Hemoglobin 25.4 pg (27.0-33.0); Mean Corpuscular Volume 81.6 fL (80.0-98.0); Mean Platelet Volume 8.4 fL (9.4-12.4); Monocytes Absolute Auto 0.7 X10*3/uL (0.1-1.2); Monocytes Percent Auto 6.9 % (2-11); NRBC Pct Auto 0.3 /100WBC (0.0-0.2); Neutrophils Absolute Auto 6.6 x10*3/uL (2.0-8.3); Neutrophils Percent Auto 69.6 % (45-73); Platelet Count 381 X10*3/uL (160-400); Red Blood Count 3.58 X10*6/uL (4.60-5.80); Red Cell Distribution Width 13.7 % (11.0-16.0); White Blood Count 9.5 X10*3/uL (4.8-10.8)
[2023-06-18 23:07] LABS: VBG Base Excess 2.4 mmol/L; VBG HCO3 29 mmol/L (22-26); VBG pCO2 57 mmHg; VBG pH 7.31 (7.32-7.43); VBG pO2 51 mmHg
[2023-06-18 23:08] LABS: Venous Blood Gas Refer to POC result
[2023-06-18 23:17] VITALS: PULSE 151; RESP 36; O2SAT 95
[2023-06-18 23:18] VITALS: PULSE 151; RESP 36; O2SAT 95
[2023-06-18 23:23] LABS: Alanine Aminotransferase 38 U/L (0-40); Albumin Level 3.9 g/dL (3.5-5.0); Alkaline Phosphatase 169 U/L (39-117); Anion Gap 16 (12-20); Aspartate Amino Transferase 80 U/L (5-37); Bilirubin Total 0.3 mg/dL (0.0-1.0); Blood Urea Nitrogen 15 mg/dL (9-16); Calcium 9.5 mg/dL (8.4-10.2); Carbon Dioxide 25 mmol/L (22-29); Chloride 102 mmol/L (96-108); Creatinine Clr Calc Pharmacy 83.4; Estimated Glomerular Filt Rate 58; Glucose Random 107 mg/dL (60-115); Potassium 5.1 mmol/L (3.3-5.1); Sodium 138 mmol/L (135-145); Total Protein 8.4 g/dL (6.5-8.0)
[2023-06-18] MEDS: Albuterol Sulfate 7.5 MG, Albuterol/Iprat 2.5/0.5MG 3 ML 3 ML INHALE (23:23)
[2023-06-18 23:29] LABS: Lactic Acid 2.6 mmol/L (0.5-2.0)
[2023-06-18 23:40] LABS: Influenza A PCR NEGATIVE (Negative); Influenza B PCR NEGATIVE (Negative); Resp Syncy Virus RNA Qual PCR NEGATIVE (Negative); SARS COV2 PCR INHOUSE NEGATIVE (Negative)
[2023-06-19] VITALS (18 sets, daily range): BP systolic 120–152; BP diastolic 53–85; PULSE 81–134; RESP 14–32; TEMP 36.4–36.7; O2SAT 96–99
[2023-06-19 01:12] LABS: Reflex Lactate? Lactic Acid Added
--- NOTE | 2023-06-19 02:34 | PC.NURSE ---
Pt poc 301, Dr. Geiger aware. No orders at this time. Plan of care ongoing.
[2023-06-19 02:35] LABS: Glucose, Whole Blood 301 mg/dL (60-115)
[2023-06-19 02:59] LABS: ~Lactic Acid-LAB USE ONLY 2.6 mmol/L (0.5-2.0)
[2023-06-19 03:56] LABS: VBG Base Excess -0.7 mmol/L; VBG HCO3 22 mmol/L (22-26); VBG pCO2 29 mmHg; VBG pH 7.47 (7.32-7.43); VBG pO2 116 mmHg
[2023-06-19 03:57] LABS: Venous Blood Gas Refer to POC result
[2023-06-19] MEDS: Albuterol/Iprat 2.5/0.5MG 3 ML AMPUL.NEB INHALE (04:24)
--- NOTE | 2023-06-19 04:36 | P.HPHOSP_ITS ---
History of Present Illness Date of Service: 06/19/23 Attending physician on admission: Elvin Carbone Chief Complaint: shortness of breath Manjit May is a 53 years old man with past medical history significant for morbid obesity, severe persistent asthma, type 2 diabetes mellitus on insulin, HFpEF, depression, obstructive sleep apnea and essential hypertension presents to the emergency department complaining of worsening shortness of breath since last night associated with chest tightness, dry cough and wheezing. Denies fever or chills. Denied headache, palpitations or dizziness. He did not report any acute gastrointestinal or genitourinary symptoms. He reported edema to the lower extremities that he attributes to fluid retention. He tried breathing treatment at home without improvement of symptoms. Denies tobacco smoking, alcohol abuse or illicit drug use. In the ED, he was found to have an oxygen saturation in the 70s and was placed and was placed on a non-rebreather mask. He also was found to have tachypnea and tachycardia. Blood pressure is stable. Blood workup showed no leukocytosis. There is lactic acidosis of 2.6. Hemoglobin is 9.1 (it was 11.8 on September 2022) and no thrombocytopenia. There are no electrolyte imbalances. There is hyperglycemia, last BG is 301. Renal function is adequate. AST and alk-phos are elevated. Bilirubin, ALT and albumin are normal. Initial VBG: PH 7.31, pCO2 57 and recheck pH 7.47 and pCO2 29. CXR is negative. ED tx: Solu-Medrol 125 mg IV, albuterol 7.5 mg x 1 Review of Systems 2 Review of Systems: All 12 systems were reviewed and normal except as noted in HPI. [facility] Medical History Foot drop, left Lumbar radiculopathy, chronic Diabetic neuropathy associated with diabetes mellitus due to underlying condition Abnormal ECG Type 2 diabetes mellitus with diabetic polyneuropathy Obesity due to excess calories Hx of pancreatitis Acid reflux Elevated alkaline phosphatase measurement Asthma MAURIZIO on CPAP Morbid obesity Degeneration of L4-L5 intervertebral disc Diabetes Anemia Apnea, sleep Dyspnea on exertion HTN (hypertension) Obstructive sleep apnea Family History Father Diabetes Hearing loss Mother CVD (cardiovascular disease) Thyroid condition Paternal Grandmother Diabetes Paternal Aunt Diabetes Sister No problems noted. Sister No problems noted. 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 Meds Allergies Allergy/AdvReac Type Severity Reaction Status Date / Time pollen Allergy Mild ichy eyes Uncoded 06/18/23 22:40 Active Medications: Current Medications Acetaminophen (Acetaminophen 325 Mg Tablet) 975 mg PO Q6H PRN PRN Reason: mild pain, headache or fever Albuterol Sulfate (Albuterol Sulfate (0.083%) 2.5 Mg/3 Ml Vial.Neb) 2.5 mg INHALE RQ4H WHILE AWAKE JANETTE Stop: 06/19/23 16:01 Enoxaparin Sodium (Enoxaparin Sodium 40 Mg/0.4 Ml Syringe) 40 mg SUBCUT Q24H JANETTE Methylprednisolone Sodium Succinate (Methylprednisolone Sod Succ 40 Mg/Ml Vial) 40 mg IVPUSH BID ONE Stop: 06/19/23 21:01 Sodium Chloride (0.9 % Sodium Chloride Flush 3 Ml Syringe) 3 ml IVFLUSH QSHIFT [facility] Home Medications ?Medication ?Instructions ?Recorded ?Confirmed ?Last Taken ?Type acetaminophen 500 mg tablet 1,000 mg PO Q6H PRN 05/24/20 12/05/22 Unknown History aspirin 81 mg tablet,delayed 81 mg PO DAILY 05/24/20 12/05/22 Unknown History release (Adult Low Dose Aspirin) glimepiride 2 mg tablet 2 mg PO DAILY 05/24/20 12/05/22 Unknown History ketoconazole 2 % topical gel 1 appl topical DAILY 05/24/20 12/05/22 Unknown History lisinopril 40 mg tablet 40 mg PO DAILY 05/24/20 12/05/22 Unknown History metformin 1,000 mg tablet 1,000 mg PO BID 05/24/20 12/05/22 Unknown History pravastatin 20 mg tablet 20 mg PO BEDTIME 05/24/20 12/05/22 Unknown History albuterol sulfate 2.5 mg/3 mL 2.5 mg inhalation Q4-6H PRN 06/07/20 12/05/22 Unknown History (0.083 %) solution for nebulization albuterol sulfate 90 mcg/actuation 2 puff inhalation Q6H PRN 06/07/20 12/05/22 Unknown History aerosol inhaler (ProAir HFA) amitriptyline 10 mg tablet 10 mg PO BEDTIME 11/30/20 12/05/22 Unknown History blood-glucose meter ([facility] 11/30/20 12/05/22 Unknown History Lite Meter kit) tadalafil 10 mg tablet (Cialis) 20 mg PO DAILY PRN 11/30/20 12/05/22 Unknown History omeprazole 20 mg capsule,delayed 20 mg PO DAILY 12/14/20 12/05/22 Unknown History release furosemide 40 mg tablet 80 mg PO BID 08/18/21 12/05/22 Unknown History ferrous sulfate 325 mg (65 mg 325 mg PO Q OTHER DAY 01/11/22 12/05/22 Unknown History iron) tablet (FeroSul) gabapentin 300 mg capsule 300 mg PO BEDTIME 01/11/22 12/05/22 Unknown History amlodipine 10 mg tablet 10 mg PO DAILY 05/01/22 12/05/22 Unknown History insulin syringe-needle U-100 1 mL #100 ea 05/01/22 12/05/22 Unknown History 30 gauge x 7/16 [facility] 12/05/22 Unknown History Lancets) magnesium oxide 400 mg (241.3 mg mg PO 02/15/23 Unknown History magnesium) tablet spironolactone 25 mg tablet 25 mg PO DAILY 02/15/23 Unknown History furosemide 80 mg tablet 80 mg PO DAILY 06/19/23 06/19/23 Unknown History gabapentin 300 mg capsule 300 mg PO TID 06/19/23 06/19/23 Unknown History glimepiride 2 mg tablet 2 mg PO DAILY 06/19/23 Unknown History glimepiride 2 mg tablet 2 mg PO DAILY 06/19/23 06/19/23 Unknown History glimepiride 2 mg tablet 2 mg PO DAILY 06/19/23 06/19/23 Unknown History insulin glargine 100 unit/mL 70 unit subcut BEDTIME 06/19/23 06/19/23 2 Days Ago History subcutaneous solution (Lantus ~06/17/23 U-100 Insulin) insulin glargine 100 unit/mL 70 unit subcut DAILY 06/19/23 Unknown History subcutaneous solution (Lantus U-100 Insulin) magnesium oxide 400 mg (241.3 mg 400 mg PO QAM 06/19/23 06/19/23 Unknown History magnesium) tablet metformin 1,000 mg tablet 1,000 mg PO BID 06/19/23 06/19/23 Unknown History pravastatin 20 mg tablet 20 mg PO BEDTIME 06/19/23 06/19/23 Unknown History spironolactone 25 mg tablet 25 mg PO DAILY 06/19/23 06/19/23 Unknown History Physical Exam 2 Vital Signs and Narrative: Vital Signs: Last Vital Signs Temp 98.0 F 06/19/23 00:00 Pulse 118 H 06/19/23 04:24 Resp 24 H 06/19/23 04:27 BP 137/53 L 06/19/23 03:50 Pulse Ox 99 06/19/23 03:50 O2 Del Method BiPAP 06/19/23 03:50 BMI result Body Mass Index 45.2 Constitutional - Awake and Alert, No apparent distress. Obese. Cooperative. On high-flow (nasal cannula) HEENT- Pupils equally round. Heart - RRR, No murmurs. Lungs - Normal lung expansion, Normal respiratory effort, No respiratory distress. Tachypnea. Bilateral rhonchi. Occasional end expiratory wheezes. Abdomen - NT / ND; +BS; No rebound or guarding Extremities - (+) lower extremity edema Musculoskeletal - Normal inspection, normal ROM Skin - Warm/Dry Neurological - Alert & oriented x3. No focal weakness grossly noted. Normal speech. Psychological - Appropriate affect Results Labs 06/18/23 22:56 06/18/23 22:56 Labs: Laboratory Results - last 24 hr 06/18/23 06/18/23 06/18/23 22:56 23:00 23:07 MCV 81.6 MCH 25.4 L MCHC 31.2 RDW 13.7 Plt Count 381 MPV 8.4 L Immature Gran % (Auto) 0.6 H Neut % (Auto) 69.6 Lymph % (Auto) 22.6 [place] % (Auto) 6.9 Eos % (Auto) 0.0 Baso % (Auto) 0.3 Lymph # (Auto) 2.2 [place] # (Auto) 0.7 Eos # (Auto) 0.0 Baso # (Auto) 0.0 Abs Immat Gran (auto) 0.06 H Absolute Neuts (auto) 6.6 Absolute Nucleated RBC 0.030 H Nucleated RBC % (auto) 0.3 H VBG pH 7.31 L VBG pCO2 57 VBG pO2 51 VBG HCO3 29 H VBG O2 Saturation 73.0 VBG Base Excess 2.4 Anion Gap 16 Estim Creat Clear Calc 83.4 Estimated GFR 58 POC Glucose Random Glucose 107 Lactic Acid 2.6 H* Lactic Acid F/U @ 2Hr Calcium 9.5 Total Bilirubin 0.3 AST 80 H ALT 38 Alkaline Phosphatase 169 H Total Protein 8.4 H Albumin 3.9 Influenza Type A (PCR) NEGATIVE Influenza Type B (PCR) NEGATIVE RSV RNA Qual (PCR) NEGATIVE SARS-CoV-2 RNA (RT-PCR) NEGATIVE 06/19/23 06/19/23 06/19/23 02:31 02:40 03:50 MCV MCH MCHC RDW Plt Count MPV Immature Gran % (Auto) Neut % (Auto) Lymph % (Auto) [place] % (Auto) Eos % (Auto) Baso % (Auto) Lymph # (Auto) [place] # (Auto) Eos # (Auto) Baso # (Auto) Abs Immat Gran (auto) Absolute Neuts (auto) Absolute Nucleated RBC Nucleated RBC % (auto) VBG pH 7.47 H VBG pCO2 29 VBG pO2 116 VBG HCO3 22 VBG O2 Saturation Not Reportable VBG Base Excess -0.7 Anion Gap Estim Creat Clear Calc Estimated GFR POC Glucose 301 H Random Glucose Lactic Acid Lactic Acid F/U @ 2Hr 2.6 H* Calcium Total Bilirubin AST ALT Alkaline Phosphatase Total Protein Albumin Influenza Type A (PCR) Influenza Type B (PCR) RSV RNA Qual (PCR) SARS-CoV-2 RNA (RT-PCR) Imaging Radiologist's Impressions: Impressions Chest X-Ray 06/18/23 23:45 IMPRESSION: Unremarkable examination. 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 Status: Acute (5) Severe persistent allergic asthma: Status: Acute (6) HTN (hypertension): Qualifiers: Hypertension type: primary hypertension Qualified Code(s): I10 - Essential (primary) hypertension Status: Acute (7) Obesity due to excess calories: Qualifiers: Obesity classification: adult class 3 (BMI >= 40) Body mass index: B TX 45.0-49.9 Serious obesity comorbidity presence: with serious comorbidity Q ualified Code(s): E66.01 - Morbid (severe) obesity due to excess calories; Z68.42 - Body mass index [BMI] 45.0-49.9, adult Status: Acute (8) Type 2 diabetes mellitus with diabetic polyneuropathy: Qualifiers: Diabetes mellitus group home insulin use: with group home use Qualified Code(s): E11.42 - Type 2 diabetes mellitus with diabetic polyneuropathy; 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 Admit to hospitalist service. Telemetry. Pulse oximetry. Supplemental O2 via NC (pt know off high flow) to keep O2 sats > 90%. Continue bronchodilator therapy and IV steroids. * Type 2 diabetes mellitus. Continue ladder gain, metformin, glimepiride and insulin sliding scale. * Essential hypertension. Continue amlodipine and lisinopril. * HFpEF. Check BNP. Doubt acute exacerbation. Continue furosemide spironolactone. * Hyperlipidemia. Continue statin. * GERD. Continue famotidine. * Diabetic neuropathy. Continue gabapentin. * Chronic anemia, trending down. Continue to monitor. * Morbid obesity. BMI 45.2 kg/m2. Getting outpatient evaluation by bariatric surgery service. DVT prophylaxis: Lovenox Code status: Full Patient will need hospitalization for at least 2 midnights for hypoxic and hypercapnic respiratory failure secondary to acute exacerbation asthma with supplemental oxygen, bronchodilator therapy and IV steroids. Quality Stroke Does the patient have a stroke diagnosis?: No VTE Prior VTE?: No VTE Risk Level:: Medical - moderate - high VTE Device Contraindication: Treatment Not Indicated VTE Drug Contraindication: N/A - Med Ordered
[2023-06-19 04:44] LABS: Reflex Lactate? 2 Y
[2023-06-19 05:35] LABS: B Type Natriuretic Peptide 60 pg/mL (<100)
[2023-06-19 05:39] LABS: ~Lactic Acid-LAB USE ONLY 2.8 mmol/L (0.5-2.0)
--- NOTE | 2023-06-19 05:40 | PC.NURSE ---
Hospitalist notified of lactic acid 2.8.
--- NOTE | 2023-06-19 05:41 | PC.NURSE ---
Per hospitalist justino d/c lactic acid labs. Plan of care ongoing.
[2023-06-19 05:53] LABS: Glucose, Whole Blood 285 mg/dL (60-115)
[2023-06-19] MEDS: Insulin Lispro 100 UNIT/ML 3 ML VIAL SUBCUT ×3 (05:55→18:42)
[2023-06-19] MEDS: Insulin Glargine,Hum.rec.anlog 100 UNIT/ML 10 ML VIAL 70 UNIT SUBCUT ×2 (05:55→22:10)
--- NOTE | 2023-06-19 05:58 | PC.NURSE ---
Pts poc 285. Pt medicated per mar. Plan of care ongoing.
[2023-06-19] MEDS: Spironolactone 25 MG TABLET PO (07:28)
[2023-06-19] MEDS: Magnesium Oxide 400 MG TABLET PO (07:29)
[2023-06-19] MEDS: Gabapentin 300 MG CAPSULE PO ×3 (07:29→22:10)
[2023-06-19] MEDS: Furosemide 40 MG TABLET 80 MG PO (07:29)
[2023-06-19] MEDS: amLODIPine Besylate 10 MG TABLET PO (07:29)
[2023-06-19] MEDS: metFORMIN HCl 1,000 MG TABLET 1000 MG PO ×2 (07:30→18:47)
[2023-06-19] MEDS: Enoxaparin Sodium 40 MG/0.4 ML SYRINGE SUBCUT (07:30)
[2023-06-19] MEDS: Albuterol Sulfate (0.083%) 2.5 MG/3 ML VIAL.NEB INHALE ×3 (08:14→15:47)
[2023-06-19] MEDS: glipiZIDE 5 MG TABLET PO (08:34)
--- NOTE | 2023-06-19 09:31 | PHA.MEDREC ---
Pharmacy Consult ? Medication Reconciliation Pharmacy has completed the medication reconciliation. Spoke to patient at bedside and he was unable to confirm medications but stated he gets all his meds from [facility]. Utilized claim history. Patient was able to state that he takes 70 units of Lantus at bedtime and that he was recently started on a sliding scale.
--- NOTE | 2023-06-19 09:58 | PC.NURSE ---
patient sitting up on edge of bed, ate breakfast this morning, medicated per APR, respirations equal and unlabored, skin dry and intact. patient is alert and oriented.
[2023-06-19 12:40] LABS: Glucose, Whole Blood 176 mg/dL (60-115)
--- NOTE | 2023-06-19 12:48 | MHC.CM.PN ---
Pt is independent, does not use home care, for medical equipment, he has: CPAP machine, nebulizer, insulin supplies. He is able to find transportation at [place]. He said that his HCP is his sister Sue and friend Luke, CM will bring form for him to complete. DC plan is home, self care. CM will follow and assist as needed with DC plan.
--- NOTE | 2023-06-19 17:01 | PM.EVENT ---
Event Note Date of Service: 06/19/23 Event Note: Manjit May is a 53 years old man admitted with: Acute Hypoxic and hypercapnic respiratory failure secondary to acute exacerbation of mild intermittent asthma in the setting of obstructive sleep apnea. Oxygenation rapidly improved currently on room air with stable oxygenation, chest x-ray negative, continue IV Solu Medrol and updraft treatment . No cough, no fevers no chills symptoms started acutely while patient is sitting and watching TV and did not relieved with use of home inhalers. Type 2 diabetes mellitus. Continue Lantus, glimepiride and insulin sliding scale. Hold metformin Essential hypertension. Initially noted to have elevated blood pressure will resume home medications Continue amlodipine and lisinopril. HFpEF. No acute exacerbation BNP 60, chest x-ray negative , will resume home medications furosemide and spironolactone. Hyperlipidemia. Continue statin. GERD. Continue famotidine. Diabetic neuropathy. Continue gabapentin. Acute on chronic anemia, hematocrit 36 on September 2022, currently 29.2 patient denies hematemesis ,no melena will check iron studies, stool guaiac, recommend outpatient follow-up with PCP Morbid obesity. BMI 45.2 kg/m2. Getting outpatient evaluation by bariatric surgery service. DVT prophylaxis: Lovenox Code status: Full Patient will need hospitalization for at least 2 midnights for hypoxic and hypercapnic respiratory failure secondary to acute exacerbation asthma with supplemental oxygen, bronchodilator therapy and IV steroids. Time Spent With Patient Time: Total time managing care of this patient today ____ minutes.
[2023-06-19 18:32] LABS: Glucose, Whole Blood 156 mg/dL (60-115)
[2023-06-19 21:35] LABS: Glucose, Whole Blood 118 mg/dL (60-115)
[2023-06-19] MEDS: methylPREDNISolone Sod Succ 40 MG/ML VIAL IVPUSH (22:10)
[2023-06-19] MEDS: Famotidine 20 MG TABLET PO (22:10)
[2023-06-19] MEDS: Amitriptyline HCl 10 MG TABLET PO (22:34)
[2023-06-19] MEDS: Pravastatin Sodium 20 MG TABLET PO (22:34)
[2023-06-20] VITALS (10 sets, daily range): BP systolic 109–142; BP diastolic 49–79; PULSE 81–101; RESP 16–20; TEMP 36.2–36.6; O2SAT 95–98
[2023-06-20] MEDS: 0.9 % Sodium Chloride Flush 3 ML SYRINGE IVFLUSH ×4 (03:38→21:23)
[2023-06-20 05:26] LABS: Basophils Percent Auto 0.1 % (0-2); Hematocrit 26.7 % (42.0-52.0); Hemoglobin 8.5 g/dl (14.0-18.0); Imm Gran Abs Auto 0.08 X10*3/uL (0.00-0.03); Imm Gran Pct Auto 0.6 % (0.0-0.4); Lymphocytes Percent Auto 7.1 % (20-40); MANUAL DIFF FLAG SCAN; Mean Corpuscular HGB Conc 31.8 g/dl (31.0-36.0); Mean Corpuscular Hemoglobin 25.3 pg (27.0-33.0); Mean Corpuscular Volume 79.5 fL (80.0-98.0); Mean Platelet Volume 8.7 fL (9.4-12.4); Monocytes Absolute Auto 0.2 X10*3/uL (0.1-1.2); Monocytes Percent Auto 1.6 % (2-11); Neutrophils Absolute Auto 12.2 x10*3/uL (2.0-8.3); Neutrophils Percent Auto 90.6 % (45-73); Platelet Count 341 X10*3/uL (160-400); Red Blood Count 3.36 X10*6/uL (4.60-5.80); SCAN SMEAR FLAG 1; White Blood Count 13.4 X10*3/uL (4.8-10.8)
[2023-06-20 05:36] LABS: SLIDE REVIEW VERIFIED
[2023-06-20 05:46] LABS: Anion Gap 16 (12-20); Blood Urea Nitrogen 26 mg/dL (9-16); Carbon Dioxide 23 mmol/L (22-29); Chloride 100 mmol/L (96-108); Creatinine Clr Calc Pharmacy 91.2; Estimated Glomerular Filt Rate > 60; Glucose Random 256 mg/dL (60-115); Iron 13 mcg/dL (45-160); Percent Iron Saturation 4 % (15-50); Sodium 134 mmol/L (135-145); Total Iron Binding Capacity 360 mcg/dL (228-428); Unsaturated Iron Binding 347 ug/dL
[2023-06-20 06:02] LABS: Ferritin 14 ng/mL (20-250)
[2023-06-20 07:43] LABS: Glucose, Whole Blood 226 mg/dL (60-115)
[2023-06-20] MEDS: Insulin Lispro 100 UNIT/ML 3 ML VIAL SUBCUT ×2 (07:50→11:40)
[2023-06-20] MEDS: Gabapentin 300 MG CAPSULE PO ×3 (10:37→21:21)
[2023-06-20] MEDS: amLODIPine Besylate 10 MG TABLET PO (10:37)
[2023-06-20] MEDS: metFORMIN HCl 1,000 MG TABLET 1000 MG PO (10:37)
[2023-06-20] MEDS: Spironolactone 25 MG TABLET PO (10:38)
[2023-06-20] MEDS: Famotidine 20 MG TABLET PO (10:38)
[2023-06-20] MEDS: Magnesium Oxide 400 MG TABLET PO (10:38)
[2023-06-20] MEDS: glipiZIDE 5 MG TABLET PO (10:38)
[2023-06-20] MEDS: Furosemide 40 MG TABLET 80 MG PO (10:38)
[2023-06-20] MEDS: Enoxaparin Sodium 40 MG/0.4 ML SYRINGE SUBCUT (10:39)
[2023-06-20 11:05] LABS: Glucose, Whole Blood 215 mg/dL (60-115)
--- NOTE | 2023-06-20 12:13 | MHC.CM.PN ---
CM met with Patient at bedside and he provided CM with a copy of his HCP(Agent is Sister/Sue). Patient lives in a house with his Girlfriend and he required no services nor DME SALES OPERATIONS. Home/self care is the goal and CM has initiated and will follow for dc planning. PCP is Dr. Beau Stewart.
--- NOTE | 2023-06-20 13:24 | P.PNIM_ITS ---
Subjective Subjective Date of Service: 06/20/23 Interval History: Admitted for acute onset of shortness of breath with significant hypoxia, not relieved with home draft, finger oximetry in 70s required treatment with non- rebreather mask, lactic acid was 2.6, VBG showed pH 7.3, pCO2 57 repeat showed pCO2 of 29, chest x-ray was negative. Since admission patient denies shortness of breath, no cough, no fevers, no chills, not requiring oxygen, no chest pain, no orthopnea on albuterol inhaler and updrafts prn at home, take puffers daily History of sleep apnea, Use CPAP at night Denies hematemesis, no melena, complain of heartburn, denies use of NSAIDs takes aspirin 81 mg Review of Systems All other system reviewed and negative Physical Exam 2 Vital Signs: Vital Signs: Last Vital Signs Temp 97.8 F 06/20/23 11:43 Pulse 92 06/20/23 11:43 Resp 20 06/20/23 11:43 BP 122/72 06/20/23 11:43 Pulse Ox 98 06/20/23 11:43 O2 Del Method Room Air 06/20/23 11:43 BMI result Body Mass Index 45.2 Const: Other: General awake alert x3, resting comfortably in no acute distress. Neck supple no JVD. CVS regular rate rhythm, Respiratory lungs clear to auscultation, no respiratory distress, no wheeze, no rhonchi. Gastrointestinal abdomen soft, obese, non tender, bowel sounds audible, no guarding , no rigidity. Extremities bilateral pitting edema. Chronic Right greater than left due to prior right leg injury Neuro non focal , speech clear. Skin no rash Psych appropriate affect Objective Data Active Medications Acetaminophen (Acetaminophen 325 Mg Tablet) 975 mg PO Q6H PRN PRN Reason: mild pain, headache or fever Amitriptyline HCl (Amitriptyline Hcl 10 Mg Tablet) 10 mg PO BEDTIME [facility] Last Admin: 06/19/23 22:34 Dose: 10 mg Documented By: KELVIN Amlodipine Besylate (Amlodipine Besylate 10 Mg Tablet) 10 mg PO DAILY [facility]; Protocol Last Admin: 06/20/23 10:37 Dose: 10 mg Documented By: LACY Enoxaparin Sodium (Enoxaparin Sodium 40 Mg/0.4 Ml Syringe) 40 mg SUBCUT Q24H [facility] Last Admin: 06/20/23 10:39 Dose: 40 mg Documented By: LACY Famotidine (Famotidine 20 Mg Tablet) 20 mg PO BID [facility] Last Admin: 06/20/23 10:38 Dose: 20 mg Documented By: LACY Furosemide (Furosemide 40 Mg Tablet) 80 mg PO DAILY [facility]; Protocol Last Admin: 06/20/23 10:38 Dose: 80 mg Documented By: LACY Gabapentin (Gabapentin 300 Mg Capsule) 300 mg PO TID [facility] Last Admin: 06/20/23 10:37 Dose: 300 mg Documented By: LACY Glipizide (Glipizide 5 Mg Tablet) 5 mg PO DAILY [facility] Last Admin: 06/20/23 10:38 Dose: 5 mg Documented By: LACY Glucose (Glucose Gel 15 Gm Gel..Gram.) 15 gm PO Q15M PRN; Protocol PRN Reason: per Hypoglycemia Standing Ord. Dextrose (D10) 250 mls @ 750 mls/hr IV Q15M PRN; Protocol PRN Reason: per Hypoglycemia Standing Ord. Iron Sucrose 200 mg/ Sodium (Chloride) 110 mls @ 440 mls/hr IV DAILY [facility] Stop: 06/21/23 09:14 Insulin Glargine (Insulin Glargine,Hum.Rec.Anlog 100 Unit/Ml 10 Ml Vial) 70 unit SUBCUT BEDTIME [facility] Last Admin: 06/19/23 22:10 Dose: 70 unit Documented By: KELVIN Insulin Human Lispro (Insulin Lispro 100 Unit/Ml 3 Ml Vial) 0 unit SUBCUT QIDACHS [facility]; Protocol Last Admin: 06/20/23 11:40 Dose: 4 unit Documented By: LACY Magnesium Oxide (Magnesium Oxide 400 Mg Tablet) 400 mg PO DAILY [facility] Last Admin: 06/20/23 10:38 Dose: 400 mg Documented By: LACY Metformin HCl (Metformin Hcl 1,000 Mg Tablet) 1,000 mg PO BIDWM [facility] Last Admin: 06/20/23 10:37 Dose: 1,000 mg Documented By: LACY Pravastatin Sodium (Pravastatin Sodium 20 Mg Tablet) 20 mg PO BEDTIME [facility] Last Admin: 06/19/23 22:34 Dose: 20 mg Documented By: KELVIN Sodium Chloride (0.9 % Sodium Chloride Flush 3 Ml Syringe) 3 ml IVFLUSH QSHIFT [facility] Last Admin: 06/20/23 10:39 Dose: 3 ml Documented By: LACY Spironolactone (Spironolactone 25 Mg Tablet) 25 mg PO DAILY [facility]; Protocol Last Admin: 06/20/23 10:38 Dose: 25 mg Documented By: LACY Labs 06/20/23 04:43 06/20/23 04:43 Labs: Laboratory Results - last 24 hr 06/19/23 06/19/23 06/20/23 18:28 21:32 04:43 MCV 79.5 L MCH 25.3 L MCHC 31.8 RDW 14.0 Plt Count 341 MPV 8.7 L Immature Gran % (Auto) 0.6 H Neut % (Auto) 90.6 H Lymph % (Auto) 7.1 L [place] % (Auto) 1.6 L Eos % (Auto) 0.0 Baso % (Auto) 0.1 Lymph # (Auto) 1.0 L [place] # (Auto) 0.2 Eos # (Auto) 0.0 Baso # (Auto) 0.0 Abs Immat Gran (auto) 0.08 H Absolute Neuts (auto) 12.2 H Absolute Nucleated RBC 0.000 Nucleated RBC % (auto) 0.0 Smear Tech's Comments VERIFIED Anion Gap 16 Estim Creat Clear Calc 91.2 Estimated GFR > 60 POC Glucose 156 H 118 H Random Glucose 256 H Calcium 9.0 Iron 13 L TIBC 360 % Saturation 4 L Unsat Iron Binding 347 Ferritin 14 L 06/20/23 06/20/23 07:35 10:57 MCV MCH MCHC RDW Plt Count MPV Immature Gran % (Auto) Neut % (Auto) Lymph % (Auto) [place] % (Auto) Eos % (Auto) Baso % (Auto) Lymph # (Auto) [place] # (Auto) Eos # (Auto) Baso # (Auto) Abs Immat Gran (auto) Absolute Neuts (auto) Absolute Nucleated RBC Nucleated RBC % (auto) Smear Tech's Comments Anion Gap Estim Creat Clear Calc Estimated GFR POC Glucose 226 H 215 H Random Glucose Calcium Iron TIBC % Saturation Unsat Iron Binding Ferritin Microbiology Microbiology Results: Microbiology 06/18/23 23:07 Blood Culture - Preliminary Blood - Venous No growth after 24 hours. 06/18/23 23:07 Blood Culture - Preliminary Blood - Venous No growth after 24 hours. Assessment and Plan (1) Acute hypoxemic respiratory failure: Status: Acute (2) Type 2 diabetes mellitus with diabetic polyneuropathy: Status: Acute (3) Obesity due to excess calories: Status: Acute Plan 53-year-old gentleman with past medical history significant for obstructive sleep apnea on CPAP, type 2 diabetes mellitus, morbid obesity, hyperlipidemia, GERD, iron deficiency anemia presented with acute onset of shortness of breath. Acute Hypoxic and hypercapnic respiratory failure secondary to acute exacerbation of mild to moderate persistent asthma in the setting of obstructive sleep apnea/ch.anemia. Oxygenation rapidly improved currently on room air finger oximetry 98%, chest x- ray negative, continue prn updraft treatment , hold steroids. Tachycardia/tachypnea likely due to respiratory failure not due to sepsis No cough, no fevers, no chills symptoms started acutely while patient sitting and watching TV and did not relieved with use of home inhalers, no evidence of CHF, Due to tachycardia tachypnea and hypoxia will rule out PE/likely anemia also contributing to symptoms Acute on chronic anemia, hematocrit 36 on September 2022, on admission 29.2 dropped to 26.7 today, patient denies hematemesis ,no melena Iron studies consistent with iron deficiency, reviewed old record status post upper endoscopy and colonoscopy [place] [address] Childress was negative Patient not compliant with iron replacement Will place on IV iron obtain GI consult check stool guaiac Acute lactic acidosis due to hypoxia and updraft treatment not due to sepsis. Type 2 diabetes mellitus. Stable blood sugars, Continue Lantus, glimepiride and insulin sliding scale. Hold metformin Essential hypertension. Initially noted to have elevated blood pressure , continue amlodipine and resume lisinopril 20 mg.(home dose 40 mg) HFpEF. No acute exacerbation BNP 60, chest x-ray negative , cont. home medications furosemide and spironolactone. Hyperlipidemia. Continue statin. GERD. Provide history of heartburn will place on Prilosec and DC famotidine. Diabetic neuropathy. Continue gabapentin. MAURIZIO continue CPAP Morbid obesity. BMI 45.2 kg/m2. Getting outpatient evaluation by bariatric surgery service. DVT prophylaxis: DC Lovenox, place on Compression boots Code status: Full Patient will need hospitalization for at least 2 midnights for hypoxic and hypercapnic respiratory failure secondary to acute exacerbation asthma with supplemental oxygen, bronchodilator therapy and IV steroids. Quality Stroke Does the patient have a stroke diagnosis?: No VTE Prior VTE?: No VTE Risk Level:: Medical - moderate - high VTE Device Contraindication: Treatment Not Indicated VTE Drug Contraindication: N/A - Med Ordered
[2023-06-20] MEDS: Iron Sucrose Complex 200 MG in 0.9 % Sodium Chloride 100 ML 440 MG IV (14:14)
[2023-06-20] MEDS: lisinopriL 20 MG TABLET PO (14:14)
--- NOTE | 2023-06-20 14:37 | PM.GICN ---
History of Present Illness Data of Consult Service Date: 06/20/23 Requesting physician: Elvin Carbone Primary Care Provider: Beau Stewart MD HPI Reason for consult: Iron-deficiency anemia 53 YM with morbid obesity, severe persistent asthma, type 2 diabetes mellitus on insulin, HFpEF, depression, obstructive sleep apnea and hypertension seen at [facility] on 06/19/23 with worsening shortness of breath, associated with chest tightness, dry cough and wheezing since evening of 06/18/23. He tried breathing treatment at home without improvement of symptoms. Pt reported lower extremity edema and denied fever or chills, headache, palpitations or dizziness. Pt reports a hx of chronic heartburn with regurgitation for the past several years with increased symptoms over the past 2 months. He was previously taking Omeprazole and was switched to twice daily Famotidine due to low Magnesium levels. Patient gives a history of intermittent constipation and denies noticing any black stools or blood in the stool. He admits to taking a baby aspirin daily and denies use of NSAIDs. Denies tobacco smoking, alcohol abuse or illicit drug use. Family hx is negative for colon polyps or GI malignancy. An uncle had gastric ulcer. Pt lives with a partner and has no children. 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 In the ED, he was found to have an oxygen saturation in the 70s and was placed and was placed on a non-rebreather mask. He also was found to have tachypnea and tachycardia. Blood pressure is stable. Labs showed no leukocytosis and lactic acidosis of 2.6. Hemoglobin is 9.1 (it was 11.8 on September 2022) and no thrombocytopenia. There are no electrolyte imbalances. There is hyperglycemia, last BG is 301. Renal function is adequate. LFTS showed elevated AST and alk-phos with normal Bilirubin, ALT and albumin. Initial VBG: PH 7.31, pCO2 57 and recheck pH 7.47 and pCO2 29. CXR is negative. ED tx: Solu-Medrol 125 mg IV, albuterol 7.5 mg x 1 PAST GI HISTORY BY REVIEW OF MEDICAL RECORDS: 07/16 ABD US SHOWED: 1. Impression: Enlarged slightly heterogeneous echogenic liver. Slight nodular contour of the liver questionable for mild cirrhotic change. 2. Liver elastography: Limited due to sampling error. 05/2020 EGD AND COLON SHOWED: Endoscopy Findings: STOMACH: Moderate diffuse gastric erythema with nodular appearing gastric mucosa - Biopsies were obtained from the body and antrum. Multiple 5-10 mm chronic appearing nodules with central erosions in the gastric antrum - biopsied. DUODENUM: Normal biopsied to check for celiac sprue Colonoscopy Findings: No polyps were detected. Moderate diverticulosis seen in the sigmoid colon Moderate hemorrhoids on retroflexed exam. No etiology found for iron deficiency anemia - questionably related to H.pylori gastritis Plan: If gastric biopsies are negative for Helicobacter pylori, advise checking stool hemoccults and if positive, consider further evaluation of iron deficiency anemia with a capsule endoscopy. Repeat Colonoscopy in 10 years. Above findings were reviewed with the patient and GERD, Gastritis and diverticulosis handouts were given in the discharge area BIOPSIES SHOWED: A. Small bowel, biopsy: Duodenal mucosa within normal limits. B. Stomach, antrum, biopsy: - Antral- type mucosa with moderate chronic inactive inflammation. - Rare forms consistent with H pylori. C. Stomach, antral nodule: Antral- type mucosa with regenerative and surface hyperplastic changes and background mild chronic inactive inflammation; no Helicobacter organisms seen. D. Stomach, body, biopsy: - Oxyntic mucosa with severe chronic active inflammation. - Positive for H pylori. Patient was treated with antibiotics and was able to tolerate only 7 days of treatment. FU stool antigen for H pylori was negative Review of Systems Review of Systems: All 12 systems were reviewed and normal except as noted in HPI. [facility] Past Medical History Medical History Foot drop, left Lumbar radiculopathy, chronic Diabetic neuropathy associated with diabetes mellitus due to underlying condition Abnormal ECG Type 2 diabetes mellitus with diabetic polyneuropathy Obesity due to excess calories Hx of pancreatitis Acid reflux Elevated alkaline phosphatase measurement Asthma MAURIZIO on CPAP Morbid obesity Degeneration of L4-L5 intervertebral disc Diabetes Anemia Apnea, sleep Dyspnea on exertion HTN (hypertension) Obstructive sleep apnea Family History Family History Father Diabetes Hearing loss Mother CVD (cardiovascular disease) Thyroid condition Paternal Grandmother Diabetes Paternal Aunt Diabetes Sister No problems noted. Sister No problems noted. 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 Meds Allergies Allergy/AdvReac Type Severity Reaction Status Date / Time pollen Allergy Mild ichy eyes Uncoded 06/18/23 22:40 Active Medications: Current Medications Acetaminophen (Acetaminophen 325 Mg Tablet) 975 mg PO Q6H PRN PRN Reason: mild pain, headache or fever Amitriptyline HCl (Amitriptyline Hcl 10 Mg Tablet) 10 mg PO BEDTIME [facility] Last Admin: 06/19/23 22:34 Dose: 10 mg Amlodipine Besylate (Amlodipine Besylate 10 Mg Tablet) 10 mg PO DAILY [facility]; Protocol Last Admin: 06/20/23 10:37 Dose: 10 mg Furosemide (Furosemide 40 Mg Tablet) 80 mg PO DAILY [facility]; Protocol Last Admin: 06/20/23 10:38 Dose: 80 mg Gabapentin (Gabapentin 300 Mg Capsule) 300 mg PO TID [facility] Last Admin: 06/20/23 14:14 Dose: 300 mg Glipizide (Glipizide 5 Mg Tablet) 5 mg PO DAILY [facility] Last Admin: 06/20/23 10:38 Dose: 5 mg Glucose (Glucose Gel 15 Gm Gel..Gram.) 15 gm PO Q15M PRN; Protocol PRN Reason: per Hypoglycemia Standing Ord. Dextrose (D10) 250 mls @ 750 mls/hr IV Q15M PRN; Protocol PRN Reason: per Hypoglycemia Standing Ord. Iron Sucrose 200 mg/ Sodium (Chloride) 110 mls @ 440 mls/hr IV DAILY [facility] Stop: 06/21/23 09:14 Last Admin: 06/20/23 14:14 Dose: 440 mls/hr Insulin Glargine (Insulin Glargine,Hum.Rec.Anlog 100 Unit/Ml 10 Ml Vial) 70 unit SUBCUT BEDTIME [facility] Last Admin: 06/19/23 22:10 Dose: 70 unit Insulin Human Lispro (Insulin Lispro 100 Unit/Ml 3 Ml Vial) 0 unit SUBCUT QIDACHS [facility]; Protocol Last Admin: 06/20/23 11:40 Dose: 4 unit Lisinopril (Lisinopril 20 Mg Tablet) 20 mg PO DAILY [facility]; Protocol Last Admin: 06/20/23 14:14 Dose: 20 mg Magnesium Oxide (Magnesium Oxide 400 Mg Tablet) 400 mg PO DAILY [facility] Last Admin: 06/20/23 10:38 Dose: 400 mg Metformin HCl (Metformin Hcl 1,000 Mg Tablet) 1,000 mg PO BIDWM [facility] Last Admin: 06/20/23 10:37 Dose: 1,000 mg Omeprazole (Omeprazole 40 Mg Capsule.Dr) 40 mg PO DAILY@0630 [facility] Pravastatin Sodium (Pravastatin Sodium 20 Mg Tablet) 20 mg PO BEDTIME [facility] Last Admin: 06/19/23 22:34 Dose: 20 mg Sodium Chloride (0.9 % Sodium Chloride Flush 3 Ml Syringe) 3 ml IVFLUSH QSHIFT [facility] Last Admin: 06/20/23 10:39 Dose: 3 ml Spironolactone (Spironolactone 25 Mg Tablet) 25 mg PO DAILY [facility]; Protocol Last Admin: 06/20/23 10:38 Dose: 25 mg Home Medications ?Medication ?Instructions ?Recorded ?Confirmed ?Last Taken ?Type albuterol sulfate 90 mcg/actuation 2 puff inhalation Q4-6H PRN 06/19/23 06/19/23 Unknown History aerosol inhaler (Ventolin HFA) Wheezing amitriptyline 10 mg tablet 10 mg PO BEDTIME 06/19/23 06/19/23 Unknown History amlodipine 10 mg tablet 10 mg PO DAILY 06/19/23 06/19/23 Unknown History calcium carbonate (Calcium Antacid) 500 mg PO TID PRN Acid Reflux 06/19/23 06/19/23 Unknown History famotidine 20 mg tablet 20 mg PO BID 06/19/23 06/19/23 Unknown History furosemide 80 mg tablet 80 mg PO Q OTHER DAY 06/19/23 06/19/23 Unknown History gabapentin 300 mg capsule 300 mg PO TID 06/19/23 06/19/23 Unknown History insulin glargine 100 unit/mL 70 unit subcut BEDTIME 06/19/23 06/19/23 Unknown History subcutaneous solution (Lantus U-100 Insulin) insulin lispro 100 unit/mL 1 sliding scale dose subcut 06/19/23 06/19/23 Unknown History subcutaneous solution USEASDIRECTD lisinopril 40 mg tablet 40 mg PO DAILY 06/19/23 06/19/23 Unknown History magnesium oxide 400 mg (241.3 mg 400 mg PO QAM 06/19/23 06/19/23 Unknown History magnesium) tablet metformin 1,000 mg tablet 1,000 mg PO BIDWM 06/19/23 06/19/23 Unknown History pravastatin 20 mg tablet 20 mg PO BEDTIME 06/19/23 06/19/23 Unknown History sodium chloride 0.9 % for 3 ml inhalation 6XD PRN breathing 06/19/23 06/19/23 Unknown History nebulization spironolactone 25 mg tablet 25 mg PO DAILY 06/19/23 06/19/23 Unknown History Physical Exam Vital Signs: Vital Signs: Last Vital Signs Temp 97.8 F 06/20/23 11:43 Pulse 92 06/20/23 11:43 Resp 20 06/20/23 11:43 BP 122/72 06/20/23 11:43 Pulse Ox 98 06/20/23 11:43 O2 Del Method Room Air 06/20/23 11:43 BMI result Body Mass Index 45.2 Const: Other: General awake alert x3, resting comfortably in no acute distress. Neck supple no JVD. CVS regular rate rhythm, Respiratory lungs clear to auscultation, no respiratory distress, no wheeze, no rhonchi. Gastrointestinal abdomen soft, obese, non tender, bowel sounds audible, no guarding , no rigidity. Extremities bilateral pitting edema. Chronic Right greater than left due to prior right leg injury Neuro non focal , speech clear. Skin no rash Psych appropriate affect Results Labs 06/21/23 06:35 06/21/23 06:35 Labs: Short CBC 06/20/23 Range/Units 04:43 WBC 13.4 H (4.8-10.8) X10*3/uL Hgb 8.5 L (14.0-18.0) g/dl Hct 26.7 L (42.0-52.0) % Plt Count 341 (160-400) X10*3/uL BMP 06/20/23 04:43 Sodium 134 L Potassium 5.0 Chloride 100 Carbon Dioxide 23 BUN 26 H Creatinine 1.18 Calcium 9.0 Microbiology Microbiology Results: Microbiology 06/18/23 23:07 Blood - Venous Blood Culture - Preliminary No growth after 24 hours. 06/18/23 23:07 Blood - Venous Blood Culture - Preliminary No growth after 24 hours. Assessment and Plan (1) Cirrhosis: Status: Acute (2) Iron deficiency anemia: Status: Acute Plan 53 YM with morbid obesity, severe persistent asthma, type 2 diabetes mellitus on insulin, HFpEF, depression, obstructive sleep apnea and hypertension admitted to [facility] on 06/19/23 with worsening shortness of breath, associated with chest tightness, dry cough and wheezing and lower extremity edema. Pt reports a hx of chronic heartburn with regurgitation for the past several years with increased symptoms over the past 2 months. Labs showed hb of 9.1 (it was 11.8 on September 2022) and no thrombocytopenia. Pt has a sleep apnea and uses a CPAP machine. Acute on chronic anemia related to iron def - likely due to UGI source (erosive esophagitis, possible varices, PUD, gastritis, GAVE or UGI AVMs). Lower GI source is less likely given negative colonoscopy 3 years ago. RECOMMENDATIONS: 1. Agree with IV PPI and IV iron infusion 2. Abdominal US - order placed. 3. Proceed with EGD in the am (needs GA due BMI of > 45) ADDENDUM: ABD U SHOWED: Heterogeneous liver echotexture and slightly irregular contour of the liver questionable for hepatocellular disease and mild cirrhotic change. No focal hepatic lesion. There is no intrahepatic biliary duct dilatation seen. No ascites. Procedures Date of Service Date of Service: 06/26/23
[2023-06-20 16:12] LABS: Glucose, Whole Blood 64 mg/dL (60-115)
[2023-06-20] MEDS: Glucose Gel 15 GM GEL..GRAM. PO (16:14)
[2023-06-20 17:02] LABS: Glucose, Whole Blood 110 mg/dL (60-115)
[2023-06-20 20:37] LABS: Glucose, Whole Blood 141 mg/dL (60-115)
[2023-06-20] MEDS: Amitriptyline HCl 10 MG TABLET PO (21:20)
[2023-06-20] MEDS: Pravastatin Sodium 20 MG TABLET PO (21:21)
[2023-06-20] MEDS: Calcium Carbonate 750 MG TAB.CHEW PO (22:11)
[2023-06-20] MEDS: iohexoL 350 MG/ML 100 ML INFUS..BTL 85 ML IV (22:32)
[2023-06-21] VITALS (12 sets, daily range): BP systolic 108–126; BP diastolic 58–71; PULSE 77–106; RESP 16–20; TEMP 36.2–36.7; O2SAT 94–98
[2023-06-21] MEDS: Calcium Carbonate 750 MG TAB.CHEW PO (02:41)
[2023-06-21] MEDS: Omeprazole 40 MG CAPSULE.DR PO ×2 (05:45→16:46)
[2023-06-21 07:19] LABS: Hematocrit 27.6 % (42.0-52.0); Hemoglobin 8.8 g/dl (14.0-18.0); Mean Corpuscular HGB Conc 31.9 g/dl (31.0-36.0); Mean Corpuscular Hemoglobin 25.8 pg (27.0-33.0); Mean Corpuscular Volume 80.9 fL (80.0-98.0); Mean Platelet Volume 8.8 fL (9.4-12.4); Platelet Count 358 X10*3/uL (160-400); Red Blood Count 3.41 X10*6/uL (4.60-5.80); White Blood Count 10.4 X10*3/uL (4.8-10.8)
[2023-06-21 07:48] LABS: Anion Gap 13 (12-20); Blood Urea Nitrogen 28 mg/dL (9-16); Calcium 8.8 mg/dL (8.4-10.2); Carbon Dioxide 26 mmol/L (22-29); Chloride 103 mmol/L (96-108); Creatinine Clr Calc Pharmacy 96.1; Estimated Glomerular Filt Rate > 60; Glucose Random 120 mg/dL (60-115); Sodium 138 mmol/L (135-145)
[2023-06-21 08:04] LABS: Potassium 3.7 mmol/L (3.3-5.1)
--- NOTE | 2023-06-21 08:06 | P.PNIM_ITS ---
Subjective Subjective Date of Service: 06/21/23 Interval History: Seen in follow-up for suspected GI bleed, acute hypoxemic respiratory failure which was resolved on admission Interval history: Patient has no complaints. Plan for EGD today, currently NPO. Denies melena, hematochezia. No nausea or vomiting. H/H stable overnight Review of Systems All other system reviewed and negative Physical Exam 2 Vital Signs: Vital Signs: Last Vital Signs Temp 97.2 F 06/21/23 08:00 Pulse 77 06/21/23 08:00 Resp 20 06/21/23 08:00 BP 108/58 L 06/21/23 08:00 Pulse Ox 98 06/21/23 08:00 O2 Del Method Room Air 06/21/23 08:00 BMI result Body Mass Index 45.2 Constitutional - Awake and Alert, No apparent distress Eyes - PERRLA, EOMI Cardiovascular - S1S2, RRR, No edema Respiratory - Normal lung expansion, Normal respiratory effort, No respiratory distress, CTA bilaterally Gastrointestinal - obese abdomen, NT / ND; +BS; No rebound or guarding Extremities - no calf tenderness bilaterally, no swelling Skin - Warm/Dry Neurological - Alert & oriented x3 Psychological - Appropriate affect Objective Data Active Medications Acetaminophen (Acetaminophen 325 Mg Tablet) 975 mg PO Q6H PRN PRN Reason: mild pain, headache or fever Amitriptyline HCl (Amitriptyline Hcl 10 Mg Tablet) 10 mg PO BEDTIME [facility] Last Admin: 06/20/23 21:20 Dose: 10 mg Documented By: ISIAH Amlodipine Besylate (Amlodipine Besylate 10 Mg Tablet) 10 mg PO DAILY [facility]; Protocol Last Admin: 06/20/23 10:37 Dose: 10 mg Documented By: LACY Calcium Carbonate (Calcium Carbonate 750 Mg Tab.Chew) 750 mg PO Q4H PRN PRN Reason: Heartburn Last Admin: 06/21/23 02:41 Dose: 750 mg Documented By: ISIAH Furosemide (Furosemide 40 Mg Tablet) 80 mg PO DAILY [facility]; Protocol Last Admin: 06/20/23 10:38 Dose: 80 mg Documented By: LACY Gabapentin (Gabapentin 300 Mg Capsule) 300 mg PO TID [facility] Last Admin: 06/20/23 21:21 Dose: 300 mg Documented By: ISIAH Glipizide (Glipizide 5 Mg Tablet) 5 mg PO DAILY [facility] Last Admin: 06/20/23 10:38 Dose: 5 mg Documented By: LACY Glucose (Glucose Gel 15 Gm Gel..Gram.) 15 gm PO Q15M PRN; Protocol PRN Reason: per Hypoglycemia Standing Ord. Last Admin: 06/20/23 16:14 Dose: 15 gm Documented By: LACY Dextrose (D10) 250 mls @ 750 mls/hr IV Q15M PRN; Protocol PRN Reason: per Hypoglycemia Standing Ord. Iron Sucrose 200 mg/ Sodium (Chloride) 110 mls @ 440 mls/hr IV DAILY [facility] Stop: 06/21/23 09:14 Last Infusion: 06/20/23 14:43 Dose: Infused Documented By: ZEN Insulin Glargine (Insulin Glargine,Hum.Rec.Anlog 100 Unit/Ml 10 Ml Vial) 70 unit SUBCUT BEDTIME [facility] Last Admin: 06/20/23 21:46 Dose: Not Given Documented By: ISIAH Non-Admin Reason: per MD Insulin Human Lispro (Insulin Lispro 100 Unit/Ml 3 Ml Vial) 0 unit SUBCUT QIDACHS [facility]; Protocol Last Admin: 06/20/23 21:13 Dose: Not Given Documented By: ISIAH Non-Yoni Reason: No Insulin Coverage Lisinopril (Lisinopril 20 Mg Tablet) 20 mg PO DAILY [facility]; Protocol Last Admin: 06/20/23 14:14 Dose: 20 mg Documented By: ZEN Magnesium Oxide (Magnesium Oxide 400 Mg Tablet) 400 mg PO DAILY [facility] Last Admin: 06/20/23 10:38 Dose: 400 mg Documented By: LACY Metformin HCl (Metformin Hcl 1,000 Mg Tablet) 1,000 mg PO BIDWM [facility] Last Admin: 06/20/23 16:12 Dose: Not Given Documented By: LACY Non-Admin Reason: Physician Held Med Omeprazole (Omeprazole 40 Mg Capsule.) 40 mg PO DAILY@0630 [facility] Last Admin: 06/21/23 05:45 Dose: 40 mg Documented By: ISIAH Pravastatin Sodium (Pravastatin Sodium 20 Mg Tablet) 20 mg PO BEDTIME [facility] Last Admin: 04/25/24 21:21 Dose: 20 mg Documented By: ISIAH Sodium Chloride (0.9 % Sodium Chloride Flush 3 Ml Syringe) 3 ml IVFLUSH QSHIFT JANETTE Last Admin: 06/20/23 21:23 Dose: 3 ml Documented By: ISIAH Spironolactone (Spironolactone 25 Mg Tablet) 25 mg PO DAILY [facility]; Protocol Last Admin: 06/20/23 10:38 Dose: 25 mg Documented By: LACY Labs 06/21/23 06:35 06/21/23 06:35 Labs: Laboratory Results - last 24 hr 06/20/23 06/20/23 06/20/23 10:57 16:03 16:59 MCV MCH MCHC RDW Plt Count MPV Absolute Nucleated RBC Nucleated RBC % (auto) Anion Gap Estim Creat Clear Calc Estimated GFR POC Glucose 215 H 64 110 Random Glucose Calcium 06/20/23 06/21/23 20:25 06:35 MCV 80.9 MCH 25.8 L MCHC 31.9 RDW 14.0 Plt Count 358 MPV 8.8 L Absolute Nucleated RBC 0.000 Nucleated RBC % (auto) 0.0 Anion Gap 13 Estim Creat Clear Calc 96.1 Estimated GFR > 60 POC Glucose 141 H Random Glucose 120 H Calcium 8.8 Microbiology Microbiology Results: Microbiology 06/18/23 23:07 Blood Culture - Preliminary Blood - Venous No growth after 48 hours. 06/18/23 23:07 Blood Culture - Preliminary Blood - Venous No growth after 48 hours. Assessment and Plan (1) Acute hypoxemic respiratory failure: Status: Acute (2) Type 2 diabetes mellitus with diabetic polyneuropathy: Status: Acute (3) Obesity due to excess calories: Status: Acute Plan 53-year-old gentleman with past medical history significant for obstructive sleep apnea on CPAP, type 2 diabetes mellitus, morbid obesity, hyperlipidemia, GERD, iron deficiency anemia presented with acute onset of shortness of breath. Acute Hypoxic and hypercapnic respiratory failure secondary to acute exacerbation of mild to moderate persistent asthma in the setting of obstructive sleep apnea/ch.anemia. Oxygenation rapidly improved currently on room air finger oximetry 98%, chest x- ray negative, continue prn updraft treatment , hold steroids. Tachycardia/tachypnea likely due to respiratory failure not due to sepsis No cough, no fevers, no chills symptoms started acutely while patient sitting and watching TV and did not relieved with use of home inhalers, no evidence of CHF, Due to tachycardia tachypnea and hypoxia will rule out PE/likely anemia also contributing to symptoms. CTA chest negative for PE or acute cardiopulmonary disease Acute on chronic anemia, hematocrit 36 on September 2022, on admission 29.2 dropped to 26.7 today, patient denies hematemesis ,no melena Iron studies consistent with iron deficiency, reviewed old record status post upper endoscopy and colonoscopy [place] [address] Childress was negative 06/20 H/H stable at 8.8/27.6% Patient not compliant with iron replacement Received IV iron x2. Initiate ferrous sulfate with vitamni c tomorrow am plan for egd today 06/20 Acute lactic acidosis due to hypoxia and updraft treatment not due to sepsis. Type 2 diabetes mellitus. Stable blood sugars, Continue Lantus, glimepiride and insulin sliding scale. Hold metformin Essential hypertension. Initially noted to have elevated blood pressure , continue amlodipine and resume lisinopril 20 mg.(home dose 40 mg) HFpEF. No acute exacerbation BNP 60, chest x-ray negative , cont. home medications furosemide and spironolactone. Hyperlipidemia. Continue statin. GERD. Provide history of heartburn will place on Prilosec and DC famotidine. Diabetic neuropathy. Continue gabapentin. MAURIZIO continue CPAP Morbid obesity. BMI 45.2 kg/m2. Getting outpatient evaluation by bariatric surgery service. DVT prophylaxis: DC Lovenox, place on Compression boots Code status: Full Patient requires ongoing inpt stay for nebulizer treatments due to asthma exacerbation as well as egd results due to suspected gib and expert consultation Quality Stroke Does the patient have a stroke diagnosis?: No VTE Prior VTE?: No VTE Risk Level:: Medical - moderate - high VTE Device Contraindication: Treatment Not Indicated VTE Drug Contraindication: N/A - Med Ordered
[2023-06-21 08:12] LABS: Glucose, Whole Blood 115 mg/dL (60-115)
[2023-06-21] MEDS: Gabapentin 300 MG CAPSULE PO ×2 (08:24→20:27)
[2023-06-21] MEDS: Furosemide 40 MG TABLET 80 MG PO (08:24)
[2023-06-21] MEDS: Spironolactone 25 MG TABLET PO (08:24)
[2023-06-21] MEDS: glipiZIDE 5 MG TABLET PO (08:24)
[2023-06-21] MEDS: lisinopriL 20 MG TABLET PO (08:24)
[2023-06-21] MEDS: Magnesium Oxide 400 MG TABLET PO (08:24)
[2023-06-21] MEDS: amLODIPine Besylate 10 MG TABLET PO (08:25)
[2023-06-21] MEDS: 0.9 % Sodium Chloride Flush 3 ML SYRINGE IVFLUSH ×2 (08:26→20:28)
--- NOTE | 2023-06-21 10:18 | MHC.CM.PN ---
Patient is not yet medically cleared for dc (EGD and diet advance today); home is the goal and CM will continue to follow.
[2023-06-21 12:03] LABS: Glucose, Whole Blood 80 mg/dL (60-115)
[2023-06-21] MEDS: Iron Sucrose Complex 200 MG in 0.9 % Sodium Chloride 100 ML 440 MG IV (12:04)
[2023-06-21] MEDS: Dextrose 10 % 1,000 ML 75 ML IVCONT (12:26)
[2023-06-21 14:07] LABS: Glucose, Whole Blood 95 mg/dL (60-115)
--- NOTE | 2023-06-21 14:14 | MHC.SHP ---
Pre-Procedural Eval Section A - 24 Hr Update-Section A only Date of Service: 06/21/23 The patient is an INPATIENT: Yes Changes since office visit: Yes New Medical Problems, Yes Changes in Medication and Yes Patient answered all questions; No Cold of Flu in the past 2 weeks The patient has been examined within 24 hours of the surgical procedure. The History & Physical has been completed within 30 days and I have reviewed it.: Yes Section B - Complete if H&P > 30 days Chief Complaint: Hypoxic resp failure Allergies: Allergies Allergy/AdvReac Type Severity Reaction Status Date / Time pollen Allergy Mild ichy eyes Uncoded 06/18/23 22:40 Plan Diagnosis/Plan: Unchanged I have reviewed the history and physical and performed a pertinent physical examination on my patient. No changes have occurred unless specified. Time Spent With Patient Time: Total time managing care of this patient today ____ minutes.
--- NOTE | 2023-06-21 15:08 | P.OP_ITS ---
Operative Note Operative Note Date of Service: 06/21/23 Narrative: FLEXIBLE TRANSORAL UPPER GASTROINTESTINAL ENDOSCOPY WITH BIOPSIES Pre-op diagnosis: GERD, acute on chronic JASPREET Post-op diagnosis: Erosive esophagitis, GERD, Gastritis, gastric nodules Endoscopist:? Kike Childress MD Anesthesia:?GA (Dr Martinez) UPPER ENDOSCOPY Consent: Indications for the procedure and potential complications of bleeding, perforation, reaction to medications and missed diagnosis were discussed with the patient and informed consent was obtained. Instrument: Olympus GIF H 190 mid size upper endoscope Monitoring: Vital signs and clinical assessment, continuous EKG monitoring, Pulse oximetry, Carbon Dioxide monitoring and blood pressure monitoring were done throughout the procedure. Procedure: The patient was placed in the left lateral decubitis position and pre-procedure medications were administered and a bite block was placed. The endoscope was inserted into the mouth and advanced under direct vision to the third part of duodenum. A careful inspection was made as the upper endoscope was withdrawn including a retroflexed examination of the proximal stomach; Findings and interventions are described below. Findings: Larynx: ET tube in place Esophagus: Erosive esophagitis with multiple linear erosions from 30 to 42 cms. GE junction at 42 cms. Stomach: Prominent gastric folds in the gastric body and fundus - biopsied. Moderate diffuse gastric erythema with multiple 4-5 mm nodules with central erosions in the antrum - biopsies were obtained. Grade 2 flap valve on retroflexed examination of the cardia. Duodenum: Normal bulb and descending duodenum. Biopsies were obtained from 3rd part of the duodenum to check for celiac sprue Intervention: Biopsies as noted above Impression and Post Procedure Diagnosis: Endoscopy Findings: ESOPHAGUS: Erosive esophagitis with multiple linear erosions from 30 to 42 cms. STOMACH: Prominent gastric folds and benign appearing antral nodules DUODENUM: Normal - biopsied to check for celiac sprue No blood seen in the UGI tract during EGD. Anemia likely related to slow GI blood loss from erosive esophagitis - since pt was switched from Omeprazole to Famotidine (due to low magnesium levels) Plan: Resume Omeprazole 20 mg twice daily and monitor CBC and Magnesium levels Pt can be scheduled for a FU appt in the GI clinic with GALLITO Duarte (pt's primary dna sequencing associate) Above findings were reviewed with the patient. BIOPSIES SHOWED: A. Small bowel, biopsy: Duodenal mucosa with preserved villi and no specific change. B. Gastric antral nodule, biopsy: Gastric antral mucosa with polypoid foveolar hyperplasia and minimal chronic inactive inflammation; negative for intestinal metaplasia and dysplasia (see comment). C. Gastric fold, biopsy: Gastric body mucosa with minimal chronic inactive gastritis and features suggesting incipient fundic gland polyp formation; negative for, intestinal metaplasia and dysplasia (see comment).
[2023-06-21 16:25] LABS: Glucose, Whole Blood 101 mg/dL (60-115)
[2023-06-21] MEDS: metFORMIN HCl 1,000 MG TABLET 1000 MG PO (16:46)
[2023-06-21 20:20] LABS: Glucose, Whole Blood 271 mg/dL (60-115)
[2023-06-21] MEDS: Amitriptyline HCl 10 MG TABLET PO (20:27)
[2023-06-21] MEDS: Pravastatin Sodium 20 MG TABLET PO (20:27)
[2023-06-21] MEDS: Insulin Glargine,Hum.rec.anlog 100 UNIT/ML 10 ML VIAL 70 UNIT SUBCUT (20:28)
[2023-06-21] MEDS: Insulin Lispro 100 UNIT/ML 3 ML VIAL SUBCUT (20:28)
[2023-06-22] MEDS: Throat Lozenge, Medicated LOZENGE 1 LOZENGE MUCOUS MEM (00:11)
[2023-06-22 03:21] VITALS: BP 116/60; PULSE 85; RESP 18; TEMP 36.6; O2SAT 97
[2023-06-22] MEDS: Omeprazole 40 MG CAPSULE.DR PO (06:24)
[2023-06-22 07:17] VITALS: BP 112/61; PULSE 79; RESP 20; TEMP 36.4; O2SAT 97
[2023-06-22 08:10] LABS: Glucose, Whole Blood 124 mg/dL (60-115)
[2023-06-22 08:43] VITALS: BP 112/61
[2023-06-22] MEDS: amLODIPine Besylate 10 MG TABLET PO (08:43)
[2023-06-22] MEDS: Magnesium Oxide 400 MG TABLET PO (08:43)
[2023-06-22] MEDS: Spironolactone 25 MG TABLET PO (08:43)
[2023-06-22] MEDS: Ascorbic Acid 250 MG TABLET PO (08:43)
[2023-06-22] MEDS: Furosemide 40 MG TABLET 80 MG PO (08:43)
[2023-06-22] MEDS: glipiZIDE 5 MG TABLET PO (08:43)
[2023-06-22] MEDS: metFORMIN HCl 1,000 MG TABLET 1000 MG PO (08:43)
[2023-06-22 08:44] VITALS: BP 112/61
[2023-06-22] MEDS: Gabapentin 300 MG CAPSULE PO (08:44)
[2023-06-22] MEDS: Ferrous Sulfate 324 MG TABLET.DR 325 MG PO (08:44)
[2023-06-22] MEDS: lisinopriL 20 MG TABLET PO (08:44)
[2023-06-22] MEDS: 0.9 % Sodium Chloride Flush 3 ML SYRINGE IVFLUSH (08:44)
--- NOTE | 2023-06-22 10:37 | MHC.CM.PN ---
Pt has been medically cleared for DC, he will go home via private transport, and plan is self care.
--- NOTE | 2023-06-22 10:39 | P.DS_ITS ---
DS: Providers Provider Date of Service: 06/22/23 Date of admission: 06/19/23 04:31 Primary care physician: Beau Stewart MD Consults: 06/20/23 12:40 Consult to Gastroenterology Routine Consulting Provider: Kike Childress Reason for consultation: iron def anemia Has provider been notified: No DS: Diagnosis Discharge Diagnosis (1) Acute hypoxemic respiratory failure: Status: Acute (2) Type 2 diabetes mellitus with diabetic polyneuropathy: Status: Acute (3) Obesity due to excess calories: Status: Acute (4) Iron deficiency anemia: Status: Acute (5) Asthma exacerbation: Status: Acute (6) Erosive esophagitis: Status: Acute DS: Summary Hospital Course Hospital Course: Admission note Manjit May is a 53 years old man with past medical history significant for morbid obesity, severe persistent asthma, type 2 diabetes mellitus on insulin, HFpEF, depression, obstructive sleep apnea and essential hypertension presents to the emergency department complaining of worsening shortness of breath since last night associated with chest tightness, dry cough and wheezing. Denies fever or chills. Denied headache, palpitations or dizziness. He did not report any acute gastrointestinal or genitourinary symptoms. He reported edema to the lower extremities that he attributes to fluid retention. He tried breathing treatment at home without improvement of symptoms. Denies tobacco smoking, alcohol abuse or illicit drug use. In the ED, he was found to have an oxygen saturation in the 70s and was placed and was placed on a non-rebreather mask. He also was found to have tachypnea and tachycardia. Blood pressure is stable. Blood workup showed no leukocytosis. There is lactic acidosis of 2.6. Hemoglobin is 9.1 (it was 11.8 on September 2022) and no thrombocytopenia. There are no electrolyte imbalances. There is hyperglycemia, last BG is 301. Renal function is adequate. AST and alk-phos are elevated. Bilirubin, ALT and albumin are normal. Initial VBG: PH 7.31, pCO2 57 and recheck pH 7.47 and pCO2 29. CXR is negative.ED tx: Solu- Medrol 125 mg IV, albuterol 7.5 mg x 1 Hospital course # Acute Hypoxic and hypercapnic respiratory failure secondary to acute exacerbation of mild to moderate persistent asthma in the setting of obstructive sleep apnea and worsening anemia. rapidly improved on room air finger oximetry 98% after being treated with nebulizers and steroids. Steroids discontinued as he was found to have esophagitis and GI bleed. CTA chest negative for PE. was able to ambulate on room air with no reported dyspnea. # Acute on chronic anemia with drop in Hb and low iron stores suggestive of GIB Iron studies consistent with iron deficiency, H/H stable at 8.8/27.6 as Patient not compliant with iron replacement Received IV iron x2. EGD done showing erosive esophagitis and gastric folds which were biopsied but no ulcers or masses reported. To start Omeprazole 20 mg bid and continue Iron supplement. Discharge Plan EGD reported Erosive esophagitis and gastritis (inflammed esophagus and stomach wall) Start Omeprazole 20 mg twice daily Iron pill daily Follow with GALLITO Duarte from GI as outpatient Use Home inhalors as needed for shortness of breath\wheezing Time Attestation Discharge Coordination Time (in mins): 38 Quality: Safe Use of Opioids Does Pt have an Active Cancer Diagnosis on the Problem List?: No Quality: Stroke Does the patient have a stroke diagnosis?: No Physical Exam Vital Signs: Vital Signs: Last Vital Signs Temp 97.5 F 06/22/23 07:17 Pulse 79 06/22/23 07:17 Resp 20 06/22/23 07:17 BP 112/61 06/22/23 08:44 Pulse Ox 97 06/22/23 07:17 O2 Del Method CPAP 06/22/23 07:17 BMI result Body Mass Index 45.2 HEENT: Other: Constitutional : Awake, interactive, morbidly obese, not in distress Neck : Normal inspection, Supple Cardiovascular : RRR, no JVP, no lower extremity edema Respiratory : good bilateral air entry, no crackles, wheezes or rhonchi Gastrointestinal: soft, lax, Normal bowel sounds, Non tender Skin : Warm, Dry Neurological : Alert & oriented x3, No focal deficit DS: Data Data Completed and Pending Pending studies at discharge: Pending at discharge 06/21/23 15:00 Surgical [PTH] Routine Labs on day of discharge: Laboratory Results - last 24 hr 06/21/23 06/21/23 06/21/23 11:52 14:04 16:21 POC Glucose 80 95 101 06/21/23 06/22/23 20:17 07:22 POC Glucose 271 H 124 H Preliminary micro results at discharge 06/18/23 23:07 Blood Culture - Preliminary Blood - Venous No growth after 48 hours. 06/18/23 23:07 Blood Culture - Preliminary Blood - Venous No growth after [address] scan - abdomen: Radiologist's impression: ITS Impressions Endoscopy Findings: ESOPHAGUS: Erosive esophagitis with multiple linear erosions from 30 to 42 cms. STOMACH: Prominent gastric folds and benign appearing antral nodules DUODENUM: Normal -biopsied to check for celiac sprue No blood seen in the UGI tract during EGD. Anemia likely related to erosive esophagitis - likely since pt was switched from Omeprazole to Famotidine (due to low magnesium levels) Plan: Resume Omeprazole 20 mg twice daily and monitor Magnesium levels Pt can be scheduled for a FU appt in the GI clinic with GALLITO Duarte Chest X-Ray 06/18/23 23:45 IMPRESSION: Unremarkable examination. Abdomen Ultrasound 06/20/23 17:21 IMPRESSION: Heterogeneous liver echotexture and slightly irregular contour of the liver questionable for hepatocellular disease and mild cirrhotic change. No focal hepatic lesion. There is no intrahepatic biliary duct dilatation seen. No ascites. Chest CTA 06/20/23 22:34 IMPRESSION: 1. No evidence of pulmonary embolism. 2. No acute pulmonary disease. 3. Partially imaged upper retroperitoneal lymph nodes measuring up to 2.6 cm. VTE: negative. Discharge Plan Discharge Anticipated Discharge Date/Time: 06/22/23 10:29 Patient Disposition: Home, Self-Care Discharge Diagnosis: Asthma exacerbation GI bleed Anemia Referrals: Name,MD Beau [Primary Care Provider] - 1 Week Discharge Medications: New ferrous sulfate 324 mg (65 mg iron) Tablet,Delayed Release (Dr/Ec) 325 mg PO DAILY Qty: 90 0RF omeprazole 20 mg capsule,delayed release(DR/EC) 20 mg PO BID Qty: 180 0RF Continued insulin glargine [Lantus U-100 Insulin] 100 unit/mL solution 70 unit subcut BEDTIME spironolactone 25 mg tablet 25 mg PO DAILY famotidine 20 mg tablet 20 mg PO BID magnesium oxide 400 mg (241.3 mg magnesium) tablet 400 mg PO QAM furosemide 80 mg tablet 80 mg PO Q OTHER DAY amitriptyline 10 mg tablet 10 mg PO BEDTIME amlodipine 10 mg tablet 10 mg PO DAILY metformin 1,000 mg tablet 1,000 mg PO BIDWM calcium carbonate [Calcium Antacid] 200 mg calcium (500 mg) tablet,chewable 500 mg PO TID PRN (Reason: Acid Reflux) gabapentin 300 mg capsule 300 mg PO TID pravastatin 20 mg tablet 20 mg PO BEDTIME albuterol sulfate [Ventolin HFA] 90 mcg/actuation HFA aerosol inhaler 2 puff INHALATION Q4-6H PRN (Reason: Wheezing) lisinopril 40 mg tablet 40 mg PO DAILY sodium chloride 0.9 % solution for nebulization 3 ml inhalation 6XD PRN (Reason: breathing) insulin lispro 100 unit/mL Solution 1 sliding scale dose SUBCUT USEASDIRECTD Protocol: Insulin Correction Scale Less than or equal to 110 ---- Give (units): 0 111 to 150 Give (units): 0 151 to 200 Give (units): 2 201 to 250 Give (units): 4 251 to 300 Give (units): 6 301 to 350 Give (units): 8 Greater than 350 Give (units): 10 Call MD if Blood Glucose > : 350 Discontinued ferrous sulfate [FeroSul] 325 mg (65 mg iron) tablet 325 mg PO Q OTHER DAY Discharge Orders: Discharge Order (Routine); Ordered 06/22/23 Ordered By: Mariela Portillo Diet: Advance to usual diet Activity on Discharge: As tolerated Stand Alone Forms: Patient Portal Discharge page Print Language: Danish Care Plan Goals: Read below Health Concerns: Read below Plan of Treatment: Read below Assessment: EGD reported Erosive esophagitis and gastritis (inflammed esophagus and stomach wall) Start Omeprazole 20 mg twice daily Iron pill daily Follow with GALLITO Duarte from GI as outpatient Use Home inhalors as needed for shortness of breath\wheezing
[2023-06-22 11:04] VITALS: BP 114/56; PULSE 87; RESP 20; TEMP 36.7; O2SAT 96
[2023-06-22 11:50] LABS: Glucose, Whole Blood 165 mg/dL (60-115)
[2023-06-22] MEDS: Insulin Lispro 100 UNIT/ML 3 ML VIAL SUBCUT (11:55)
--- NOTE | 2023-06-22 12:26 | HO.POSTANES ---
Post Anesthesia Evaluation Post Anesthesia Evaluation Date of Service: 06/21/23 Vital Signs: Vital Signs Temp Pulse Resp BP Pulse Ox O2 Del Method 06/22/23 11:04 98.1 F 87 20 114/56 L 96 Room Air 06/22/23 08:44 112/61 06/22/23 08:43 112/61 06/22/23 08:43 112/61 06/22/23 08:43 112/61 06/22/23 07:17 97.5 F 79 20 112/61 97 CPAP 06/22/23 03:21 98 F 85 18 116/60 97 CPAP Anesthesia: General Mental Status: Awake Pain Control: Satisfactory Nausea/Vomiting: None Hydration: Adequate Anesthesia-Related Issues: No Anes. Related Issues
== END 2023-06-22 13:56 | disposition home or self-care (01) | DRG 141 ==
LOC: HO.ED 06-19 01:37 → HO.EDOVER 06-19 04:49 → HO.IMC 06-20 07:13
PROVIDERS: Hospitalist; Internal Medicine Gastroenterology; Physician Assistant; Admitting Provider Internal Medicine; Emergency Provider Student in an Organized Health Care Education/Training Program; PCP Internal Medicine Geriatric Medicine; Visit Provider Student in an Organized Health Care Education/Training Program
PROC: 0DJ08ZZ Inspection of Upper Intestinal Tract, Via Natural or Artificial Opening Endoscopic (ICD-10-PCS; CPT 43235; principal; 2023-06-21 14:30)
DX: J45.51 Severe persistent asthma with (acute) exacerbation (principal); J96.01 Acute respiratory failure with hypoxia; J96.02 Acute respiratory failure with hypercapnia; K22.11 Ulcer of esophagus with bleeding; K29.71 Gastritis, unspecified, with bleeding; E11.65 Type 2 diabetes mellitus with hyperglycemia; E11.42 Type 2 diabetes mellitus with diabetic polyneuropathy; D50.9 Iron deficiency anemia, unspecified; E66.01 Morbid (severe) obesity due to excess calories; I50.32 Chronic diastolic (congestive) heart failure; I11.0 Hypertensive heart disease with heart failure; K21.9 Gastro-esophageal reflux disease without esophagitis; G47.33 Obstructive sleep apnea (adult) (pediatric); E78.5 Hyperlipidemia, unspecified; Z20.822 Contact with and (suspected) exposure to COVID-19; Z79.4 Long term (current) use of insulin; Z79.84 Long term (current) use of oral hypoglycemic drugs; Z79.899 Other long term (current) drug therapy
CPT/HCPCS: 43239; 0241U; 36415; 71045; 71275; 76700; 80048; 80053; 82728; 82803; 82947; 83540; 83605; 83880; 85025; 85027; 87040; 88305; 88313; 88342; 93005; 94640; 94660; 99221; 99222; 99285; J0330; J1650; J1756; J2704; J2919; J3010; Q9967

== ENCOUNTER → 2023-06-19 04:31 | Outpatient (BNV) | payer MEDICAID, SELFPAY | PROVIDERS: Admitting Provider Internal Medicine; Emergency Provider Student in an Organized Health Care Education/Training Program; Visit Provider Internal Medicine | DX: J96.01 Acute respiratory failure with hypoxia (principal); E11.42 Type 2 diabetes mellitus with diabetic polyneuropathy; Z79.4 Long term (current) use of insulin; E66.01 Morbid (severe) obesity due to excess calories; Z68.42 Body mass index [BMI] 45.0-49.9, adult; D50.9 Iron deficiency anemia, unspecified; J45.51 Severe persistent asthma with (acute) exacerbation; K22.10 Ulcer of esophagus without bleeding | CPT/HCPCS: 99223; 99232; 99233; 99239; 99499 ==

== ENCOUNTER → 2023-06-19 04:31 | Outpatient (BNV) | payer MEDICAID, SELFPAY | PROVIDERS: Admitting Provider Internal Medicine; Emergency Provider Student in an Organized Health Care Education/Training Program; PCP Internal Medicine Geriatric Medicine; Visit Provider Internal Medicine Gastroenterology | DX: K74.60 Unspecified cirrhosis of liver (principal); D50.9 Iron deficiency anemia, unspecified; K21.00 Gastro-esophageal reflux disease with esophagitis, without bleeding; K29.70 Gastritis, unspecified, without bleeding; K31.89 Other diseases of stomach and duodenum | CPT/HCPCS: 43239; 99222 ==

== ENCOUNTER 2023-07-10 14:53 | Outpatient (AMB) | payer MEDICAID, SELFPAY ==
--- NOTE | 2023-07-10 15:00 | A.OFFVIS_ITS ---
Intake Visit Reasons: Erectile Dysfunction Intake Note: New Patient presents for initial visit for erectile dysfunction Urology Medications: none Blood Thinner: none Purchasing And Fiscal Clerk Required: No Accompanied by: Self / Same As Patient Allergies pollen Allergy (Mild, Uncoded 07/10/23 15:02) ichy eyes Medication List - Last Reconciled 07/10/23 by PETER Sahu-JERSON albuterol sulfate 90 mcg/actuation (Ventolin HFA) 2 puffs inhalation Q4-6H PRN amitriptyline 10 mg PO BEDTIME amlodipine 10 mg PO DAILY calcium carbonate (Calcium Antacid) 500 mg PO TID PRN ferrous sulfate 325 mg (1.0031 x 324 mg (65 mg iron)) PO DAILY furosemide 80 mg PO Q OTHER DAY gabapentin 300 mg PO TID insulin glargine (Lantus U-100 Insulin) 70 units subcut BEDTIME insulin lispro 1 sliding scale dose See Protocol subcut USEASDIRECTD lisinopril 40 mg PO DAILY magnesium oxide 400 mg PO QAM metformin 1,000 mg PO BIDWM omeprazole 20 mg PO BID pravastatin 20 mg PO BEDTIME sodium chloride 0.9% 3 mL inhalation 6XD PRN tadalafil (Cialis) 5 mg PO DAILY 90 days tadalafil (Cialis) 20 mg PO .PRN PRN 90 days HPI Comments Details: Manjit is a very pleasant 53-year-old male patient of Dr. Stewart. He has a past medical history of iron deficiency anemia, cirrhosis, chronic lumbar radiculopathy, diabetic neuropathy associated with diabetes mellitus, obesity, acid reflux, asthma, and obstructive sleep apnea on CPAP. He presents to the office today as a new patient for erectile dysfunction. In discussion with the patient today he reports erectile dysfunction has been present for approximately 8-10 years now. He reports previously trialing Viagra as needed prior to sexual activity however felt over time this stopped working. He reports he has been on as needed Cialis and is able to obtain and maintain erections however feels he reaches climax too soon. He also reports at times he is unable to obtain an erection that is adequate for penetration. He otherwise denies any bothersome urinary issues or concerns. He denies urinary urgency, urinary frequency, incontinence, nocturia, hematuria, dysuria, foul smelling urine, changes to urinary stream, flank pain, fever, and or chills. He is happy with his current voiding parameters. Discussed at length potential causes of erectile dysfunction. Discussed lifestyle modifications to assist with erectile dysfunction such as managing his diabetes and weight loss. In review of patient's chart it appears A1c 03/20 8.6. [facility] Medical History Iron deficiency anemia Cirrhosis Severe persistent allergic asthma Foot drop, left Lumbar radiculopathy, chronic Diabetic neuropathy associated with diabetes mellitus due to underlying condition Abnormal ECG Type 2 diabetes mellitus with diabetic polyneuropathy Obesity due to excess calories Hx of pancreatitis Acid reflux Elevated alkaline phosphatase measurement Asthma MAURIZIO on CPAP Morbid obesity Degeneration of L4-L5 intervertebral disc Diabetes Anemia Apnea, sleep Dyspnea on exertion HTN (hypertension) Obstructive sleep apnea Surgical History Hx of cholecystectomy History of back surgery Family History Father Diabetes Hearing loss Mother CVD (cardiovascular disease) Thyroid condition Paternal Grandmother Diabetes Paternal Aunt Diabetes Sister No problems noted. Sister No problems noted. 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 Review of Systems Const Reports no additional complaints Eyes Reports no additional complaints ENT Reports no additional complaints Card Reports as per HPI Resp Reports as per HPI GI Reports as per HPI Reports as per HPI Musc Reports as per HPI Neuro Reports no additional complaints Psych Reports no additional complaints Endo Reports as per HPI Brennan/Lymph Reports no additional complaints Aller/Immun Reports no additional complaints Physical Exam Const General: cooperative, comfortable, no acute distress, well developed, alert and awake Nutritional Appearance: overweight Orientation/consciousness: patient oriented x3 Limitations: no limitations HEENT Head: Yes normal to inspection, Yes normocephalic and Yes atraumatic Ears: hearing grossly normal bilaterally Eyes General: appearance normal, both eyes and all related structures Neck Neck: Yes normal visual inspection and Yes trachea midline Chest Chest palpation & inspection: normal inspection of the chest Resp Effort & Inspection: normal respiratory effort and able to speak in complete sentences Cardio Rate: regular rate GI Inspection: Yes normal to inspection General: Yes no CVA tenderness Back/Spine/Pelvis Back: no CVA tenderness Skin General skin exam: no rashes or lesions noted Neuro General: patient oriented x3 Extrem General: Yes normal to inspection Psych Appearance: grossly normal and well kempt Mental Status: mental status grossly normal Speech and movement: Normal speech and movement present and Clear speech present Affect: normal affect Attitude: cooperative Thought process: Normal thought process present Thought content: Normal thought content present Insight: Fair insight present (Psych) Judgement: Fair judgement present (Psych) Results AMB Urinalysis, Automated UA Leukoctes 0 Jennyfer/uL Last Edit by [employer] on 07/10/23 15:26 UA Nitrite Negative Last Edit by [employer] on 07/10/23 15:26 UA Urobilinogen 0.2 mg/dL Last Edit by [employer] on 07/10/23 15:26 UA Protein 30 mg/dL Last Edit by [employer] on 07/10/23 15:26 UA pH 6.0 Last Edit by [employer] on 07/10/23 15:26 UA Blood 0 Vasu/uL Last Edit by [employer] on 07/10/23 15:26 UA Specific [place] 1.015 Last Edit by [employer] on 07/10/23 15:26 UA Ketone Negative Last Edit by [employer] on 07/10/23 15:26 UA Bilirubin 1 mg/dL Last Edit by [employer] on 07/10/23 15:26 UA Glucose 0 mg/dL Last Edit by [employer] on 07/10/23 15:26 Assessment & Plan Assessment & Plan (1) Erectile dysfunction associated with type 2 diabetes mellitus: Code(s): E11.69 - Type 2 diabetes mellitus with other specified complication; N52.1 - Erectile dysfunction due to diseases classified elsewhere Category: Medical Plan In office urinalysis results reviewed with the patient today; as noted above. Discussed at length potential causes of erectile dysfunction. Discussed further treatment options for erectile dysfunction to include penile pump/ring, oral medications, injectable therapy, and or penile prosthesis; this was discussed at length; risks and benefits of these interventions were discussed. Discussed lifestyle modifications to assist with erectile dysfunction. Start Cialis 5 mg daily. Prescription provided for p.r.n. Cialis prior to sexual activity. Will obtain A1c Patient otherwise denies any bothersome urinary issues or concerns. He reports be happy with current voiding parameters. Follow-up in 3 months with lab to be completed prior; or sooner with any issues, concerns, and or questions. Orders: Orders Hemoglobin A1c 3 Months E11.9 - Type 2 diabetes mellitus without complications AMB Urinalysis Automated Today Z13.9 - Encounter for screening, unspecified Medications: New tadalafil (Cialis) [id number] [facility] [id number] Member [id number] 5 mg PO DAILY 90 days 90 tabs 1RF tadalafil (Cialis) administer approximately 30min before sexual activity; do not use more than 1 dose per 24hrs. [id number] [facility] [id number] Member [id number] 20 mg PO .PRN 90 days PRN 30 tabs 1RF sexual activity Coding Level of Care Code New Pt Level 4 (61632) Diagnoses Erectile dysfunction associated with type 2 diabetes mellitus E11.69; N52.1
== END 2023-07-10 15:29 | disposition home or self-care (01) ==
PROVIDERS: PCP Internal Medicine Geriatric Medicine; Visit Provider Nurse Practitioner Family
DX: E11.69 Type 2 diabetes mellitus with other specified complication (principal); N52.1 Erectile dysfunction due to diseases classified elsewhere; Z13.9 Encounter for screening, unspecified
CPT/HCPCS: 99204

== ENCOUNTER → 2023-07-10 14:53 | Outpatient (BNVA) | payer MEDICAID, SELFPAY | PROVIDERS: PCP Internal Medicine Geriatric Medicine; Visit Provider Nurse Practitioner Family | DX: E11.69 Type 2 diabetes mellitus with other specified complication (principal); N52.1 Erectile dysfunction due to diseases classified elsewhere | CPT/HCPCS: 81003; 99212 ==

== ENCOUNTER 2023-07-25 14:16 | Outpatient (AMB) | payer MEDICAID, SELFPAY ==
[2023-07-25 14:22] VITALS: BP 130/84; PULSE 94; BMI 46.1
--- NOTE | 2023-07-25 14:22 | A.OFFVIS_ITS ---
Vital Signs 07/25/23 14:22 Height 5 ft 6 in Weight 285 lb 11.505 oz BMI 46.1 BP 130/84 Blood Pressure Location Lt brachial Position Sitting Pulse 94 Pulse Source Pulse Oximeter Intake Visit Reasons: f/u Type 2 DM-confirmed Intake Note: Patient presents today to follow up on D2MT. Last Diabetic Eye exam: 12/2022 Last Podiatry Visit: 04/2023 Random Glucose: 102 mg/dl HgA1c: 6.5% Elastic Yarn Twister Helper Required: Yes Elastic Yarn Twister Helper Language: Telesales Representative Name: Dali Information Interpreted: non-clinical & clinical Accompanied by: Self / Same As Patient Allergies pollen Allergy (Mild, Uncoded 07/25/23 14:25) ichy eyes Medication List - Last Reconciled 07/25/23 by Balta Salazar MD albuterol sulfate 90 mcg/actuation (Ventolin HFA) 2 puffs inhalation Q4-6H PRN amitriptyline 10 mg PO BEDTIME amlodipine 10 mg PO DAILY calcium carbonate (Calcium Antacid) 500 mg PO TID PRN ferrous sulfate 325 mg (1.0031 x 324 mg (65 mg iron)) PO DAILY furosemide 80 mg PO Q OTHER DAY gabapentin 300 mg PO TID insulin glargine (Lantus U-100 Insulin) 70 units subcut BEDTIME insulin lispro 1 sliding scale dose See Protocol subcut USEASDIRECTD lisinopril 40 mg PO DAILY magnesium oxide 400 mg PO QAM metformin 1,000 mg PO BIDWM omeprazole 20 mg PO BID pravastatin 20 mg PO BEDTIME sodium chloride 0.9% 3 mL inhalation 6XD PRN tadalafil (Cialis) 5 mg PO DAILY 90 days tadalafil (Cialis) 20 mg PO .PRN PRN 90 days HPI Comments Details: Patient is a 53-year-old male with DM type 2 diagnosed 2005, who presents for management of diabetes. Past medical history: DM2, HTN, Vit D deficiency, Fatty liver, asthma, obesity, history of pancreatitis September 2020 Micro and macrovascular complications: retinopathy, nephropathy, + neuropathy, but no CVA, CAD, PVD Diabetes medications: Lantus 70 units daily, glimepiride 2mg in am,, metformin 1,000mg BID. Intolerant to Trulicity and Ozempic due to eructation/flatulence foul, bloating. Monty download shows he is using the sensor 67% of time. Average glucose is 122. Glucose is in target 87 % of the time with 5% hyperglycemia and 8%hypoglycemia occurring primarily overnight. 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: seeing [facility] Ophthalmology evaluation: appt 6- 8 mos ago denies retinopathy Labs from [facility] dated 11/28/2020: Cholesterol 121 HDL 35 Triglycerides 219 LDL cholesterol 57 Hemoglobin 11.9 Creatinine 0.96 Estimated GFR 92 Labs from [facility] dated 07/13/20: A1c 8.9%, 9.2% albumin/creatinine <39 Hgb 10.9 creatinine 1.31 eGFR 63 Laboratory Tests 11/30/20 10:02 Hgb A1c (Clinic) 6.1 H [facility] Medical History (Updated 07/25/23 @ 14:33 by Balta Salazar MD) Type 2 diabetes mellitus with diabetic polyneuropathy Iron deficiency anemia Cirrhosis Severe persistent allergic asthma Foot drop, left Lumbar radiculopathy, chronic Diabetic neuropathy associated with diabetes mellitus due to underlying condition Abnormal ECG Obesity due to excess calories Hx of pancreatitis Acid reflux Elevated alkaline phosphatase measurement Asthma MAURIZIO on CPAP Morbid obesity Degeneration of L4-L5 intervertebral disc Diabetes Anemia Apnea, sleep Dyspnea on exertion HTN (hypertension) Obstructive sleep apnea Surgical History Hx of cholecystectomy History of back surgery Family History Father Diabetes Hearing loss Mother CVD (cardiovascular disease) Thyroid condition Paternal Grandmother Diabetes Paternal Aunt Diabetes Sister No problems noted. Sister No problems noted. 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 Absence of acromegalic features. Neck exam reveals nl size thyroid about 15 gms. No thyroid nodules palpable. No carotid bruits present. Lungs CTA. Heart S1 S2, Reg R/R. No M/R/ G. Skin exam reveals absence of vitiligo or acanthosis nigricans. Abdominal exam reveals Soft NT/ND with NA BS. No organomegaly present. Neck Other: . Extrem Other: Visual exam of foot performed. No ulcerations or open lesions. No onchomycosis, no callouses.Pulses 2 + distally Sensation intact to monofilament exam. 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 insulin use: with assisted use Diabetes mellitus complication status: with hyperglycemia Qualified Code(s): E11.65 - Type 2 diabetes mellitus with hyperglycemia; Z79.4 - electrostatic painter (current) use of insulin Plan: This is a 53-year-old male with a history of type 2 diabetes being treated with metformin, , glimepiride and basal insulin with excellent improved glycemic control and known microvascular and macrovascular complications namely retinopathy, nephropathy, + neuropathy, The plan is to decrease Lantus 60 units and to report any additional hypoglycemia Patient is to follow up with the early childhood special educator. Will recheck microalbumin to creatinine ratio. If it is elevated again, could consider starting an SGLT 2 inhibitor for renal protection Orders: Orders AMB Hemoglobin A1c Today E08.40 - Diabetes mellitus due to underlying condition with diabetic neuropathy, unspecified, E11.69 - Type 2 diabetes mellitus with other specified complication, N52.1 - Erectile dysfunction due to diseases classified elsewhere, Z13.9 - Encounter for screening, unspecified Microalbumin, Random (w Creat) Today E11.42 - Type 2 diabetes mellitus with huan betic polyneuropathy, Z79.4 - group home (current) use of insulin Medications: Changed From insulin glargine (Lantus U-100 Insulin) 70 units subcut BEDTIME To insulin glargine (Lantus U-100 Insulin) 60 units subcut BEDTIME Coding Level of Care Code Est Pt Level 4 (93342) Diagnoses Type 2 diabetes mellitus with hyperglycemia, with long-term current use of insulin E11.65; Z79.4 Diabetes mellitus type: type 2 Diabetes mellitus assisted insulin use: with longshore equipment operator use Diabetes mellitus complication status: with hyperglycemia
[2023-07-25 14:31] LABS: Glucose, Whole Blood 102 mg/dL (60-115)
== END 2023-07-25 14:49 | disposition home or self-care (01) ==
PROVIDERS: PCP Internal Medicine Geriatric Medicine; Referring Provider Internal Medicine Geriatric Medicine; Visit Provider Internal Medicine Endocrinology, Diabetes & Metabolism
DX: Z13.9 Encounter for screening, unspecified (principal); E08.40 Diabetes mellitus due to underlying condition with diabetic neuropathy, unspecified; E11.69 Type 2 diabetes mellitus with other specified complication; N52.1 Erectile dysfunction due to diseases classified elsewhere; E11.65 Type 2 diabetes mellitus with hyperglycemia; Z79.4 Long term (current) use of insulin
CPT/HCPCS: 99214

== ENCOUNTER 2023-07-25 14:16 | Outpatient (REF) | payer MEDICAID, SELFPAY ==
[2023-07-25 16:44] LABS: Anion Gap 13 (12-20); Blood Urea Nitrogen 9 mg/dL (9-16); Calcium 9.5 mg/dL (8.4-10.2); Carbon Dioxide 26 mmol/L (22-29); Chloride 107 mmol/L (96-108); Estimated Glomerular Filt Rate > 60; Glucose Random 96 mg/dL (60-115); Magnesium 1.7 mg/dL (1.6-2.6); Potassium 4.1 mmol/L (3.3-5.1); Sodium 142 mmol/L (135-145)
[2023-07-25 16:46] LABS: Creatinine Urine 18.16 mg/dL; Microalbumin Urine < 5.0 mg/L
== END 2023-07-25 14:17 | disposition home or self-care (01) ==
LOC: HO.LAB 14:16
PROVIDERS: PCP Internal Medicine Geriatric Medicine; Visit Provider Internal Medicine Endocrinology, Diabetes & Metabolism
DX: E11.42 Type 2 diabetes mellitus with diabetic polyneuropathy (principal); E11.40 Type 2 diabetes mellitus with diabetic neuropathy, unspecified; E11.69 Type 2 diabetes mellitus with other specified complication; E11.65 Type 2 diabetes mellitus with hyperglycemia; E83.42 Hypomagnesemia; N52.1 Erectile dysfunction due to diseases classified elsewhere; I51.89 Other ill-defined heart diseases; Z79.4 Long term (current) use of insulin
CPT/HCPCS: 36415; 80048; 82570; 82947; 83036; 83735; 99212

== ENCOUNTER 2023-07-26 15:29 | Outpatient (REF) | payer MEDICAID, SELFPAY ==
[2023-07-26 15:58] LABS: MANUAL DIFF FLAG NO
[2023-07-26 16:18] LABS: Basophils Percent Auto 0.2 % (0-2); Hematocrit 34.1 % (42.0-52.0); Hemoglobin 10.5 g/dl (14.0-18.0); Imm Gran Abs Auto 0.02 X10*3/uL (0.00-0.03); Imm Gran Pct Auto 0.2 % (0.0-0.4); Lymphocytes Absolute Auto 2.1 X10*3/uL (1.2-4.9); Mean Corpuscular HGB Conc 30.8 g/dl (31.0-36.0); Mean Corpuscular Hemoglobin 24.5 pg (27.0-33.0); Mean Corpuscular Volume 79.5 fL (80.0-98.0); Mean Platelet Volume 9.5 fL (9.4-12.4); Monocytes Absolute Auto 0.5 X10*3/uL (0.1-1.2); Monocytes Percent Auto 5.4 % (2-11); Neutrophils Absolute Auto 5.8 x10*3/uL (2.0-8.3); Neutrophils Percent Auto 69.2 % (45-73); Platelet Count 407 X10*3/uL (160-400); Red Blood Count 4.29 X10*6/uL (4.60-5.80); Red Cell Distribution Width 15.5 % (11.0-16.0); White Blood Count 8.4 X10*3/uL (4.8-10.8)
== END 2023-07-26 15:30 | disposition home or self-care (01) ==
LOC: HO.HHCL 15:29
PROVIDERS: Visit Provider Internal Medicine Geriatric Medicine
DX: D64.9 Anemia, unspecified (principal)
CPT/HCPCS: 36415; 85025

== ENCOUNTER 2023-08-20 15:07 | Outpatient (AMB) | payer MEDICAID, SELFPAY ==
[2023-08-20 15:09] VITALS: BP 140/86; PULSE 101; O2SAT 95; BMI 46.5
--- NOTE | 2023-08-20 15:09 | A.OFFVIS_ITS ---
Vital Signs 08/20/23 15:09 Height 5 ft 6 in Weight 288 lb BMI 46.5 BP 140/86 H Blood Pressure Location Rt brachial Position Sitting Pulse 101 H Pulse Source Doppler Pulse Oximetry (%) 95 Oxygen Delivery Method Room Air Intake Visit Reasons: Asthma Allergies pollen Allergy (Mild, Uncoded 07/25/23 14:25) ichy eyes HPI HPI Asthma: Details: 53-year-old gentleman, lifetime nonsmoker, with underlying history of at least moderate diastolic dysfunction, followed for dyspnea on exertion, MAURIZIO on CPAP, and severe persistent asthma.?He has been compliant with CPAP with good control of his underlying symptoms.? His asthma symptoms are controlled on Fasenra, Wixela, and albuterol MDI. His lower extremity edema and orthopnea are not well controlled on current regimen of 80 mg of furosemide every other day. [facility] Medical History (Updated 08/20/23 @ 15:24 by Rene Sánchez MD) Type 2 diabetes mellitus with diabetic polyneuropathy Iron deficiency anemia Cirrhosis Severe persistent allergic asthma Foot drop, left Lumbar radiculopathy, chronic Diabetic neuropathy associated with diabetes mellitus due to underlying condition Abnormal ECG Obesity due to excess calories Hx of pancreatitis Acid reflux Elevated alkaline phosphatase measurement Asthma MAURIZIO on CPAP Morbid obesity Degeneration of L4-L5 intervertebral disc Diabetes Anemia Apnea, sleep Dyspnea on exertion HTN (hypertension) Obstructive sleep apnea Surgical History Hx of cholecystectomy History of back surgery Family History Father Diabetes Hearing loss Mother CVD (cardiovascular disease) Thyroid condition Paternal Grandmother Diabetes Paternal Aunt Diabetes Sister No problems noted. Sister No problems noted. 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 Review of Systems Const Denies daytime sleepiness, Denies excessive sweating, Denies fatigue, Denies fever(s), Denies lethargy, Denies malaise, Denies night sweats, Denies snoring and Denies weight loss Eyes Denies blurry vision and Denies itchy eyes ENT Denies nasal congestion, Denies post nasal drip, Denies sinus pain, Denies sinus pressure and Denies other ( Thrush) Card Denies chest pain, Denies pedal edema, Reports leg edema, Denies dyspnea, Reports dyspnea on exertion, Reports orthopnea and Denies paroxysmal nocturnal dyspnea Resp Denies cough, Denies hemoptysis, Denies excessive phlegm production, Denies dyspnea, Reports dyspnea on exertion, Denies snoring and Denies wheezing GI Denies abdominal pain and Denies heartburn Musc Denies myalgias, Denies arthralgias and Denies joint swelling Skin/Breast Denies rash Neuro Denies memory loss and Denies seizure-like activity Psych Denies abnormal sleep pattern, Denies anxiety and Denies memory loss Endo Denies excessive sweating, Denies fatigue and Denies heat intolerance Brennan/Lymph Denies easy bruising Aller/Immun Denies itchy eyes, Denies seasonal rhinorrhea and Denies wheezing Physical Exam Vital Signs: Last Vital Signs Pulse 101 H 08/20/23 15:09 BP 140/86 H 08/20/23 15:09 Pulse Ox 95 08/20/23 15:09 Oxygen Delivery Method Room Air 08/20/23 15:09 BMI result Body Mass Index 46.5 Const General: no acute distress and alert Nutritional Appearance: obese Orientation/consciousness: Other orientation findings ( oriented) HEENT Head: Yes atraumatic Eyes General: appearance normal, both eyes and all related structures Sclerae: sclerae normal EOM: EOMs intact bilaterally Neck Neck: Yes supple Lymphatic: no lymphadenopathy noted Resp Effort & Inspection: normal respiratory effort and no use of accessory muscles Auscultation: clear to auscultation bilaterally Cardio Rate: regular rate Rhythm: regular rhythm Heart sounds: no gallops, no murmurs and no rubs Skin General skin exam: other ( warm) Extrem General: No clubbing, No cyanosis and Yes edema (2+ bilateral) Assessment & Plan Assessment & Plan (1) Severe persistent asthma: Code(s): J45.50 - Severe persistent asthma, uncomplicated Category: Medical Plan: Well controlled on Fasenra, Wixela, and albuterol MDI. Continue current regimen. (2) Environmental allergies: Code(s): Z91.09 - Other allergy status, other than to drugs and biological substances Category: Medical Plan: Well controlled on Fasenra. Continue current regimen. (3) MAURIZIO on CPAP: Code(s): G47.33 - Obstructive sleep apnea (adult) (pediatric); Z99.89 - Dependence on other enabling machines and devices Category: Medical Plan: Well controlled on current CPAP therapy. Continue current CPAP therapy. (4) Orthopnea: Code(s): R06.01 - Orthopnea Category: Medical Plan: Suboptimal control on furosemide 80 mg every other day. Will change to Bumex 1 mg daily. Medications: New bumetanide 1 mg PO DAILY 30 tabs 3RF Coding Level of Care Code Est Pt Level 5 (81959) Diagnoses Severe persistent asthma J45.50 Environmental allergies Z91.09 MAURIZIO on CPAP G47.33; Z99.89 Orthopnea R06.01
== END 2023-08-20 15:20 | disposition home or self-care (01) ==
PROVIDERS: PCP Registered Nurse; Visit Provider Internal Medicine Pulmonary Disease
DX: J45.50 Severe persistent asthma, uncomplicated (principal); G47.33 Obstructive sleep apnea (adult) (pediatric); Z99.89 Dependence on other enabling machines and devices; R06.01 Orthopnea
CPT/HCPCS: 99214

== ENCOUNTER → 2023-08-20 15:07 | Outpatient (BNVA) | payer MEDICAID, SELFPAY | PROVIDERS: PCP Registered Nurse; Visit Provider Internal Medicine Pulmonary Disease | DX: R06.01 Orthopnea (principal); G47.33 Obstructive sleep apnea (adult) (pediatric); J45.50 Severe persistent asthma, uncomplicated; Z99.89 Dependence on other enabling machines and devices | CPT/HCPCS: 99212 ==

== ENCOUNTER 2023-09-10 13:58 | Outpatient (AMB) | payer MEDICAID, SELFPAY ==
--- NOTE | 2023-09-10 14:23 | A.OFFVIS_ITS ---
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 Required: No Accompanied by: Self / Same As Patient Allergies pollen Allergy (Mild, Uncoded 07/25/23 14:25) ichy eyes HPI Comprehensive Diabetes Asmnt Most Recent Diabetes Results: Microalb/Creat Ratio TNP 07/25/23 Cholesterol 134 mg/dL (<200) 03/20/23 HDL Cholesterol 38 mg/dL (>40) L 03/20/23 Triglycerides 159 mg/dL (<150) H 03/20/23 Creatinine 0.94 mg/dL (0.5-1.4) 07/25/23 Blood Urea Nitrogen 9 mg/dL (9-16) 07/25/23 Sodium 142 mmol/L (135-145) 07/25/23 Potassium 4.1 mmol/L (3.3-5.1) 07/25/23 Chloride 107 mmol/L (96-108) 07/25/23 Carbon Dioxide 26 mmol/L (22-29) 07/25/23 Calcium 9.5 mg/dL (8.4-10.2) 07/25/23 AST 80 U/L (5-37) H 06/18/23 ALT 38 U/L (0-40) 06/18/23 Total Protein 8.4 g/dL (6.5-8.0) H 06/18/23 Albumin 3.9 g/dL (3.5-5.0) 06/18/23 [facility] Medical History (Updated 08/20/23 @ 15:24 by Rene Sánchez MD) Type 2 diabetes mellitus with diabetic polyneuropathy Iron deficiency anemia Cirrhosis Severe persistent allergic asthma Foot drop, left Lumbar radiculopathy, chronic Diabetic neuropathy associated with diabetes mellitus due to underlying c ondition Abnormal ECG Obesity due to excess calories Hx of pancreatitis Acid reflux Elevated alkaline phosphatase measurement Asthma MAURIZIO on CPAP Morbid obesity Degeneration of L4-L5 intervertebral disc Diabetes Anemia Apnea, sleep Dyspnea on exertion HTN (hypertension) Obstructive sleep apnea Surgical History Hx of cholecystectomy History of back surgery Family History Father Diabetes Hearing loss Mother CVD (cardiovascular disease) Thyroid condition Paternal Grandmother Diabetes Paternal Aunt Diabetes Sister No problems noted. Sister No problems noted. 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 Assessment & Plan Assessment & Plan (1) Type 2 diabetes mellitus with diabetic polyneuropathy: Comment: Pt gaining weight, Noted weight gain of 11 lbs since last nutrition visit in 01/2021 Code(s): E11.42 - Type 2 diabetes mellitus with diabetic polyneuropathy Qualifiers: Diabetes mellitus fci insulin use: with meterman use Qualified Code(s): E11.42 - Type 2 diabetes mellitus with diabetic polyneuropathy; 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 Hyperglycemia:? 23% Time in Range:? 76% Average glucose for the last 2 weeks? 147 mg/dL Patient's last A1c 07/25/2023 6.5% After review of glucose data it appears patient's glucose well controlled with the exception of between 9pm-to 1 am Patient does report he eats snack approximately between 9 and 10, to take his evening medication. Reports this snack usually consists of cookies, crackers or bread Reviewed with patient the effects of carbohydrate snacks especially at bedtime. Patient given a list of low carbohydrate snacks with the recommendation to switch evening snack to lower carbohydrate options Patient had several episodes of hypoglycemia on glucose data, patient denies symptoms of hypoglycemia. Recommended to patient if he has not experiencing hypoglycemic symptoms but he has getting the alert from his sensor to confirm with a reading from his blood glucometer. Reviewed with patient how to treat low blood sugar with rule of 15s Rule of 15s handout given Reviewed how to interpret trend arrows Reminded patient that to check finger sticks if symptoms do not match sensor reading. Discussed lag time between finger stick and sensor data.? Patient able to insert sensor independently at home without issue.? Portions of this note were created using voice recognition software, please excuse any words or phrases that may have been misinterpreted. Patient Instructions: Patient will follow-up in 3 months Coding Level of Care Code Est Pt Level 1 (29717) Diagnoses Type 2 diabetes mellitus with diabetic polyneuropathy, with long-term current use of insulin E11.42; Z79.4 Diabetes mellitus meterman insulin use: with fci use
== END 2023-09-10 14:25 | disposition home or self-care (01) ==
PROVIDERS: PCP Internal Medicine Geriatric Medicine; Visit Provider Registered Nurse Diabetes Educator
DX: E11.42 Type 2 diabetes mellitus with diabetic polyneuropathy (principal); Z79.4 Long term (current) use of insulin

== ENCOUNTER → 2023-09-10 13:58 | Outpatient (BNVA) | payer MEDICAID, SELFPAY | PROVIDERS: PCP Internal Medicine Geriatric Medicine; Visit Provider Registered Nurse Diabetes Educator | DX: E11.42 Type 2 diabetes mellitus with diabetic polyneuropathy (principal); Z79.4 Long term (current) use of insulin | CPT/HCPCS: 99211 ==

== ENCOUNTER 2023-09-19 15:13 | Outpatient (AMB) | payer MEDICAID, SELFPAY ==
--- NOTE | 2023-09-19 15:13 | A.OFFVIS_ITS ---
Vital Signs 09/19/23 15:14 Height 5 ft 6 in Weight 292 lb 1.8 oz BMI 47.1 BP 158/90 H Blood Pressure Location Rt brachial Position Sitting Pulse 92 Pulse Source Doppler Pulse Oximetry (%) 98 Oxygen Delivery Method Room Air Intake Visit Reasons: Asthma Allergies pollen Allergy (Mild, Uncoded 07/25/23 14:25) ichy eyes HPI HPI Asthma: Details: 53-year-old gentleman, lifetime nonsmoker, with underlying history of at least moderate diastolic dysfunction, followed for dyspnea on exertion, MAURIZIO on CPAP, and severe persistent asthma.?He has been compliant with CPAP with good control of his underlying symptoms.? His asthma symptoms were controlled on Fasenra, Wixela, and albuterol MDI. His primary switched his Wixela to Arnuity with no significant changes. His lower extremity edema and orthopnea are not well controlled on current regimen of 1 mg of Bumex daily. [facility] Medical History (Updated 08/20/23 @ 15:24 by Rene Sánchez MD) Type 2 diabetes mellitus with diabetic polyneuropathy Iron deficiency anemia Cirrhosis Severe persistent allergic asthma Foot drop, left Lumbar radiculopathy, chronic Diabetic neuropathy associated with diabetes mellitus due to underlying condition Abnormal ECG Obesity due to excess calories Hx of pancreatitis Acid reflux Elevated alkaline phosphatase measurement Asthma MAURIZIO on CPAP Morbid obesity Degeneration of L4-L5 intervertebral disc Diabetes Anemia Apnea, sleep Dyspnea on exertion HTN (hypertension) Obstructive sleep apnea Surgical History Hx of cholecystectomy History of back surgery Family History Father Diabetes Hearing loss Mother CVD (cardiovascular disease) Thyroid condition Paternal Grandmother Diabetes Paternal Aunt Diabetes Sister No problems noted. Sister No problems noted. 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 Review of Systems Const Denies daytime sleepiness, Denies excessive sweating, Denies fatigue, Denies fever(s), Denies lethargy, Denies malaise, Denies night sweats, Denies snoring and Denies weight loss Eyes Denies blurry vision and Denies itchy eyes ENT Denies nasal congestion, Denies post nasal drip, Denies sinus pain, Denies sinus pressure and Denies other ( Thrush) Card Denies chest pain, Denies pedal edema, Denies dyspnea, Denies orthopnea and Denies paroxysmal nocturnal dyspnea Resp Denies cough, Denies hemoptysis, Denies excessive phlegm production, Denies dyspnea, Denies snoring and Denies wheezing GI Denies abdominal pain and Denies heartburn Musc Denies myalgias, Denies arthralgias and Denies joint swelling Skin/Breast Denies rash Neuro Denies memory loss and Denies seizure-like activity Psych Denies abnormal sleep pattern, Denies anxiety and Denies memory loss Endo Denies excessive sweating, Denies fatigue and Denies heat intolerance Brennan/Lymph Denies easy bruising Aller/Immun Denies itchy eyes, Denies seasonal rhinorrhea and Denies wheezing Physical Exam Vital Signs: Last Vital Signs Pulse 92 09/19/23 15:14 BP 158/90 H 09/19/23 15:14 Pulse Ox 98 09/19/23 15:14 Oxygen Delivery Method Room Air 09/19/23 15:14 BMI result Body Mass Index 47.1 Const General: no acute distress and alert Nutritional Appearance: obese Orientation/consciousness: Other orientation findings ( oriented) HEENT Head: Yes atraumatic Eyes General: appearance normal, both eyes and all related structures Sclerae: sclerae normal EOM: EOMs intact bilaterally Neck Neck: Yes supple Lymphatic: no lymphadenopathy noted Resp Effort & Inspection: normal respiratory effort and no use of accessory muscles Auscultation: clear to auscultation bilaterally Cardio Rate: regular rate Rhythm: regular rhythm Heart sounds: no gallops, no murmurs and no rubs Skin General skin exam: other ( warm) Extrem General: No clubbing, No cyanosis and Yes edema (2+ bilateral) Assessment & Plan Assessment & Plan (1) Severe persistent asthma: Code(s): J45.50 - Severe persistent asthma, uncomplicated Category: Medical Plan: Well controlled on Fasenra, Arnuity, and albuterol MDI. Continue current regimen. (2) Environmental allergies: Code(s): Z91.09 - Other allergy status, other than to drugs and biological substances Category: Medical Plan: Well controlled on Fasenra. Continue current regimen. (3) Orthopnea: Code(s): R06.01 - Orthopnea Category: Medical Plan: Suboptimal control on Bumex 1 mg daily with significant diuretic resistant edema. Will refer to Nephrology. Orders: Referrals Nephrology Referral R60.0 - Localized edema Coding Level of Care Code Est Pt Level 4 (66510) Complex EM visit Add On G2211 Diagnoses Severe persistent asthma J45.50 Environmental allergies Z91.09 Orthopnea R06.01
[2023-09-19 15:14] VITALS: BP 158/90; PULSE 92; O2SAT 98; BMI 47.1
== END 2023-09-19 15:30 | disposition home or self-care (01) ==
PROVIDERS: PCP Registered Nurse; Visit Provider Internal Medicine Pulmonary Disease
DX: J45.50 Severe persistent asthma, uncomplicated (principal); Z91.09 Other allergy status, other than to drugs and biological substances; R06.01 Orthopnea
CPT/HCPCS: 99214

== ENCOUNTER → 2023-09-19 15:13 | Outpatient (BNVA) | payer MEDICAID, SELFPAY | PROVIDERS: PCP Registered Nurse; Visit Provider Internal Medicine Pulmonary Disease | DX: J45.50 Severe persistent asthma, uncomplicated (principal); R06.01 Orthopnea; G47.33 Obstructive sleep apnea (adult) (pediatric); Z91.09 Other allergy status, other than to drugs and biological substances; Z99.89 Dependence on other enabling machines and devices | CPT/HCPCS: 99212 ==

== ENCOUNTER 2023-10-04 11:59 | Outpatient (REF) | payer MEDICAID, SELFPAY ==
[2023-10-04 13:50] LABS: Anion Gap 9 (12-20); Blood Urea Nitrogen 10 mg/dL (9-16); Calcium 9.2 mg/dL (8.4-10.2); Carbon Dioxide 31 mmol/L (22-29); Chloride 105 mmol/L (96-108); Estimated Glomerular Filt Rate > 60; Sodium 141 mmol/L (135-145)
[2023-10-04 13:55] LABS: Estimated Average Glucose 148 mg/dL; Hemoglobin A1c % 6.8 % (<6.0)
== END 2023-10-04 12:00 | disposition home or self-care (01) ==
LOC: HO.LAB 11:59
PROVIDERS: Absent Provider Nurse Practitioner Family; PCP Internal Medicine Geriatric Medicine; Referring Provider Internal Medicine Pulmonary Disease; Visit Provider Internal Medicine Nephrology
DX: E11.9 Type 2 diabetes mellitus without complications (principal); R60.0 Localized edema
CPT/HCPCS: 36415; 80051; 82310; 82565; 83036; 84520; 99202

== ENCOUNTER 2023-10-04 11:59 | Outpatient (AMB) | payer MEDICAID, SELFPAY ==
[2023-10-04 12:05] VITALS: BP 156/84; PULSE 89; O2SAT 96; BMI 47.0
--- NOTE | 2023-10-04 12:05 | HO.NEPHOV ---
Vital Signs 10/04/23 12:05 Height 5 ft 6 in Weight 291 lb BMI 47.0 BP 156/84 H Blood Pressure Location Rt brachial Position Sitting Pulse 89 Pulse Source Pulse Oximeter Pulse Oximetry (%) 96 Oxygen Delivery Method Room Air Intake Visit Reasons: Localized edema / LVM Ap Processor Required: No Accompanied by: Self / Same As Patient Allergies pollen Allergy (Mild, Uncoded 10/07/23 15:44) ichy eyes HPI Comments Details: I had the pleasure of seeing Manjit in consultation for management of his edema. He has a BMI of 47 with hypertension, diabetes as well as sleep apnea among other medical issues. There is a documentation that he has liver cirrhosis but he has not had any decompensation or serum albumin checked recently. He is not known to have any proteinuria. He has not had an echocardiogram for long time. He denies excess sodium in the diet. His urine output is good. He claims to be compliant with his CPAP. He denies any chest pain, worsening shortness of breath, weight gain, urinary symptoms. He denies taking excessive nonsteroidal anti-inflammatories. He feels his current medications are not helping him with his lower extremity swelling. [facility] Medical History Type 2 diabetes mellitus with diabetic polyneuropathy Iron deficiency anemia Cirrhosis Severe persistent allergic asthma Foot drop, left Lumbar radiculopathy, chronic Diabetic neuropathy associated with diabetes mellitus due to underlying condition Abnormal ECG Obesity due to excess calories Hx of pancreatitis Acid reflux Elevated alkaline phosphatase measurement Asthma MAURIZIO on CPAP Morbid obesity Degeneration of L4-L5 intervertebral disc Diabetes Anemia Apnea, sleep Dyspnea on exertion HTN (hypertension) Obstructive sleep apnea Surgical History Hx of cholecystectomy History of back surgery Family History Father Diabetes Hearing loss Mother CVD (cardiovascular disease) Thyroid condition Paternal Grandmother Diabetes Paternal Aunt Diabetes Sister No problems noted. Sister No problems noted. 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 Review of Systems Const All systems reviewed & are unremarkable except as noted in HPI and below Physical Exam Vital Signs: Last Vital Signs Pulse 89 10/04/23 12:05 BP 156/84 H 10/04/23 12:05 Pulse Ox 96 10/04/23 12:05 Oxygen Delivery Method Room Air 10/04/23 12:05 BMI result Body Mass Index 47.0 Const General: no acute distress Orientation/consciousness: patient oriented x3 HEENT Head: Yes normocephalic Eyes EOM: EOMs intact bilaterally Neck Neck: Yes supple Resp Auscultation: diminished lung sounds Cardio Rate: regular rate GI Palpation (GI): Soft to palpation General: Yes no CVA tenderness Back/Spine/Pelvis Back: no CVA tenderness Neuro General: patient oriented x3 Extrem General: Yes edema Results Reviewed Nephrology Results: Hgb 10.5 g/dl (14.0-18.0) L 07/26/23 WBC 8.4 X10*3/uL (4.8-10.8) 07/26/23 Plt Count 407 X10*3/uL (160-400) H 07/26/23 Sodium 141 mmol/L (135-145) 10/04/23 Potassium 4.0 mmol/L (3.3-5.1) 10/04/23 Chloride 105 mmol/L (96-108) 10/04/23 Carbon Dioxide 31 mmol/L (22-29) H 10/04/23 BUN 10 mg/dL (9-16) 10/04/23 Creatinine 1.02 mg/dL (0.5-1.4) 10/04/23 Calcium 9.2 mg/dL (8.4-10.2) 10/04/23 Assessment & Plan Assessment & Plan (1) Edema: Code(s): R60.9 - Edema, unspecified Category: Medical Qualifiers: Edema type: localized Qualified Code(s): R60.0 - Localized edema Plan Manjit has edema most likely due to multifactorial etiology. He needs an echocardiogram to look at the right ventricular systolic function as well as pulmonary artery pressures. He is not known to have any proteinuria. Medical records suggest he has liver cirrhosis but has not had an INR or serum albumin checked recently. He is on amlodipine which also may be contributing to some edema. He is on spironolactone. I started him on bumetanide 2 mg daily. He should minimize sodium in the diet and should get medical help to lose weight. He should avoid nonsteroidal anti-inflammatories. He was asked to get his electrolytes renal function tested given increase in diuretic dose. He will be followed up for ongoing investigations and continued care. Answered all questions. Orders: Orders Creatinine 10/04/23 R60.9 - Edema, unspecified Blood Urea Nitrogen 10/04/23 R60.9 - Edema, unspecified Calcium 10/04/23 R60.9 - Edema, unspecified Electrolytes 10/04/23 R60.9 - Edema, unspecified Medications: Changed From bumetanide 1 mg PO DAILY 30 tabs 3RF To bumetanide 2 mg (2 x 1 mg) PO DAILY 30 tabs 3RF From bumetanide 2 mg (2 x 1 mg) PO DAILY 30 tabs 3RF To bumetanide 2 mg (2 x 1 mg) PO DAILY 60 tabs 3RF 30 days Coding Level of Care Code New Pt Level 4 (56771) Diagnoses Localized edema R60.0 Edema type: localized
== END 2023-10-04 12:42 | disposition home or self-care (01) ==
PROVIDERS: PCP Registered Nurse; Referring Provider Internal Medicine Pulmonary Disease; Visit Provider Internal Medicine Nephrology
DX: R60.0 Localized edema (principal)
CPT/HCPCS: 99204

== ENCOUNTER 2023-10-07 15:15 | Outpatient (AMB) | payer MEDICAID, SELFPAY ==
--- NOTE | 2023-10-07 15:23 | MHC.OFFVIS ---
Intake Visit Reasons: 3M/LABS Intake Note: Patient presents for follow up visit on: erectile dysfunction and labs HGB A1C: 6.5 Urology Medications: Tadalafil daily and prn Blood Thinner: none Certified Corporate Travel Executive Required: No Accompanied by: Self / Same As Patient Allergies pollen Allergy (Mild, Uncoded 10/07/23 15:44) ichy eyes Medication List - Last Reconciled 10/07/23 by ISSAC SahuP- acetaminophen 500 mg PO Q6H PRN albuterol sulfate 90 mcg/actuation (Ventolin HFA) 2 puffs inhalation Q4-6H PRN amlodipine 5 mg PO DAILY bumetanide 2 mg (2 x 1 mg) PO DAILY 30 days diclofenac sodium 1% 2 grams topical QID PRN fluticasone furoate 200 mcg/actuation (Arnuity Ellipta) 1 inh inhalation DAILY gabapentin 300 mg PO TID glimepiride 2 mg PO DAILY insulin glargine (Lantus U-100 Insulin) 80 units subcut BEDTIME insulin lispro 1 sliding scale dose See Protocol subcut USEASDIRECTD lisinopril 40 mg PO DAILY metformin 1,000 mg PO BIDWM omeprazole 20 mg PO BID pravastatin 20 mg PO BEDTIME sodium chloride 0.9% 3 mL inhalation 6XD PRN spironolactone 25 mg PO DAILY tadalafil (Cialis) 5 mg PO DAILY 90 days tadalafil (Cialis) 20 mg PO .PRN PRN 90 days HPI Comments Details: Manjit is a very pleasant 53-year-old male patient of Dr. Stewart. He has a past medical history of iron deficiency anemia, cirrhosis, chronic lumbar radiculopathy, diabetic neuropathy associated with diabetes mellitus, obesity, acid reflux, asthma, and obstructive sleep apnea on CPAP. He presents to the office today for follow-up of his ED. Of note, patient was seen approximately 3 months ago at which time he was started on low-dose Cialis as well as additional dosing p.r.n. prior to sexual activity. In discussion with the patient today he reports noting somewhat improvement in his erections however at times does still continue with episodes of erectile dysfunction. He otherwise denies any bothersome urinary issues or concerns. He denies urinary urgency, urinary frequency, incontinence, nocturia, hematuria, dysuria, foul smelling urine, changes to urinary stream, flank pain, fever, and or chills. He is happy with his current voiding parameters. Discussed at length potential causes of erectile dysfunction. Discussed lifestyle modifications to assist with erectile dysfunction such as managing his diabetes and weight loss. A1c are as follows: 12/15 6.1, 04/18 5.9, 01/16 10.0, 05/17 8.8, 08/17 7.0, 03/20 8.6, 07/18 6.5. [facility] Medical History Type 2 diabetes mellitus with diabetic polyneuropathy Iron deficiency anemia Cirrhosis Severe persistent allergic asthma Foot drop, left Lumbar radiculopathy, chronic Diabetic neuropathy associated with diabetes mellitus due to underlying condition Abnormal ECG Obesity due to excess calories Hx of pancreatitis Acid reflux Elevated alkaline phosphatase measurement Asthma MAURIZIO on CPAP Morbid obesity Degeneration of L4-L5 intervertebral disc Diabetes Anemia Apnea, sleep Dyspnea on exertion HTN (hypertension) Obstructive sleep apnea Surgical History Hx of cholecystectomy History of back surgery Family History Father Diabetes Hearing loss Mother CVD (cardiovascular disease) Thyroid condition Paternal Grandmother Diabetes Paternal Aunt Diabetes Sister No problems noted. Sister No problems noted. 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 Review of Systems Const Reports no additional complaints Eyes Reports no additional complaints ENT Reports no additional complaints Card Reports as per HPI Resp Reports as per HPI GI Reports as per HPI Reports as per HPI Musc Reports as per HPI Neuro Reports no additional complaints Psych Reports no additional complaints Endo Reports as per HPI Brennan/Lymph Reports no additional complaints Aller/Immun Reports no additional complaints Physical Exam Const General: cooperative, comfortable, no acute distress, well developed, alert and awake Nutritional Appearance: overweight Orientation/consciousness: patient oriented x3 Limitations: no limitations HEENT Head: Yes normal to inspection, Yes normocephalic and Yes atraumatic Ears: hearing grossly normal bilaterally Eyes General: appearance normal, both eyes and all related structures Neck Neck: Yes normal visual inspection and Yes trachea midline Chest Chest palpation & inspection: normal inspection of the chest Resp Effort & Inspection: normal respiratory effort and able to speak in complete sentences Cardio Rate: regular rate GI Inspection: Yes normal to inspection General: Yes no CVA tenderness Back/Spine/Pelvis Back: no CVA tenderness Skin General skin exam: no rashes or lesions noted Neuro General: patient oriented x3 Extrem General: Yes normal to inspection Psych Appearance: grossly normal and well kempt Mental Status: mental status grossly normal Speech and movement: Normal speech and movement present and Clear speech present Affect: normal affect Attitude: cooperative Thought process: Normal thought process present Thought content: Normal thought content present Insight: Fair insight present (Psych) Judgement: Fair judgement present (Psych) Results AMB Urinalysis, Automated UA Leukoctes 0 Jennyfer/uL Last Edit by [employer] on 10/07/23 15:40 UA Nitrite Negative Last Edit by [employer] on 10/07/23 15:40 UA Urobilinogen 0.2 mg/dL Last Edit by [employer] on 10/07/23 15:40 UA Protein 0 mg/dL Last Edit by [employer] on 10/07/23 15:40 UA pH 6.0 Last Edit by [employer] on 10/07/23 15:40 UA Blood 0 Vasu/uL Last Edit by [employer] on 10/07/23 15:40 UA Specific [place] 1.010 Last Edit by [employer] on 10/07/23 15:40 UA Ketone Negative Last Edit by [employer] on 10/07/23 15:40 UA Bilirubin 0 mg/dL Last Edit by [employer] on 10/07/23 15:40 UA Glucose 0 mg/dL Last Edit by [employer] on 10/07/23 15:40 Results Reviewed Results Reviewed: Laboratory Last Values Urine pH (Auto) 6.0 10/07/23 15:39 Specific [place] (Auto) 1.010 10/07/23 15:39 Urine Protein (Auto) 0 mg/dL 10/07/23 15:39 Glucose (UA)(Auto) 0 mg/dL 10/07/23 15:39 Urine Ketones (Auto) Negative 10/07/23 15:39 Urine Blood (Auto) 0 Vasu/uL 10/07/23 15:39 Urine Nitrite (Auto) Negative 10/07/23 15:39 Urine Bilirubin (Auto) 0 mg/dL 10/07/23 15:39 Urine Urobilinogen (Auto) 0.2 mg/dL 10/07/23 15:39 Leukocyte Esterase (Auto) 0 Jennyfer/uL 10/07/23 15:39 Assessment & Plan Assessment & Plan (1) Erectile dysfunction associated with type 2 diabetes mellitus: Code(s): E11.69 - Type 2 diabetes mellitus with other specified complication; N52.1 - Erectile dysfunction due to diseases classified elsewhere Category: Medical Plan In office urinalysis results reviewed with the patient today; as noted above. Discussed at length potential causes of erectile dysfunction. Discussed further treatment options for erectile dysfunction to include penile pump/ring, oral medications, injectable therapy, and or penile prosthesis; this was discussed at length; risks and benefits of these interventions were discussed. Discussed lifestyle modifications to assist with erectile dysfunction. Continue Cialis 5 mg daily as well as p.r.n. prior to sexual activity as discussed and prescribed. Patient otherwise denies any bothersome urinary issues or concerns. He reports be happy with current voiding parameters. Will obtain hemoglobin A1c and PSA in 3 months Follow-up in 3 months with labs to be completed prior; or sooner with any issues, concerns, and or questions. Orders: Orders AMB Urinalysis Automated Today Z13.9 - Encounter for screening, unspecified Hemoglobin A1c 3 Months E11.9 - Type 2 diabetes mellitus without complications Prostate Specific Antigen 6 Months E08.40 - Diabetes mellitus due to underlying condition with diabetic neuropathy, unspecified Patient Instructions: The patient had an opportunity to ask questions regarding the treatment plan. All questions were answered. Physical exam, labs, and imaging were discussed and reviewed in detail. As well as risks, benefits, and discussion of treatment choices. No major barriers to understanding were identified. The patient expressed understanding and agreement with the above treatment plan. The patient was made aware they should contact our office by phone for worsening of their current condition, the appearance of new symptoms, or with any questions or concerns. Compliance is encouraged with any medications and follow up testing that is ordered. It is a privilege to be allowed the opportunity to participate in? your urological care.? Again, if you have any questions or concerns If you have any questions or concerns please do not hesitate to contact me. The office is [phone]. This note is constructed using voice recognition software. While every effort has been made to ensure accuracy java web application developer errors may have been included. Yours sincerely, STARR Sahu Coding Level of Care Code Est Pt Level 3 (88645) Diagnoses Erectile dysfunction associated with type 2 diabetes mellitus E11.69; N52.1
== END 2023-10-07 15:45 | disposition home or self-care (01) ==
PROVIDERS: PCP Internal Medicine Geriatric Medicine; Visit Provider Nurse Practitioner Family
DX: E11.69 Type 2 diabetes mellitus with other specified complication (principal); N52.1 Erectile dysfunction due to diseases classified elsewhere; Z13.9 Encounter for screening, unspecified
CPT/HCPCS: 99213

== ENCOUNTER → 2023-10-07 15:15 | Outpatient (BNVA) | payer MEDICAID, SELFPAY | PROVIDERS: PCP Internal Medicine Geriatric Medicine; Visit Provider Nurse Practitioner Family | DX: E11.69 Type 2 diabetes mellitus with other specified complication (principal); N52.1 Erectile dysfunction due to diseases classified elsewhere | CPT/HCPCS: 81003; 99212 ==

== ENCOUNTER 2023-10-21 13:50 | Outpatient (AMB) | payer MEDICAID, SELFPAY ==
[2023-10-21 13:51] VITALS: BP 148/64; PULSE 100; BMI 46.3
--- NOTE | 2023-10-21 13:51 | MHC.OFFVIS ---
Vital Signs 10/21/23 13:51 Height 5 ft 6 in Weight 287 lb 0.67 oz BMI 46.3 BP 148/64 H Blood Pressure Location Rt brachial Position Sitting Pulse 100 Pulse Source Pulse Oximeter Intake Visit Reasons: T2DM/LVM Intake Note: New patient presents today for D2MT office visit. Patient receives DME supplies through: [facility] Last Diabetic Eye exam: Has an appointment schedule February 2024 Last Podiatry Visit: approx 1 month Random Glucose: 142 mg/dl HgA1c: 6.8% 10/04/23 Tank Truck Loader Required: No Accompanied by: Self / Same As Patient Allergies pollen Allergy (Mild, Uncoded 10/21/23 13:55) ichy eyes Medication List - Last Reconciled 10/21/23 by Genia Ford PA-C acetaminophen 500 mg PO Q6H PRN albuterol sulfate 90 mcg/actuation (Ventolin HFA) 2 puffs inhalation Q4-6H PRN amlodipine 5 mg PO DAILY bumetanide 2 mg (2 x 1 mg) PO DAILY 30 days diclofenac sodium 1% 2 grams topical QID PRN flash glucose sensor (FreeStyle Monty 2 Sensor kit) USE DIRECTED. CHANGE EVERY 14 DAYS fluticasone furoate 200 mcg/actuation (Arnuity Ellipta) 1 inh inhalation DAILY gabapentin 300 mg PO TID glimepiride 2 mg PO DAILY insulin glargine (Lantus U-100 Insulin) 60 units subcut BEDTIME insulin lispro 1 sliding scale dose See Protocol subcut USEASDIRECTD lisinopril 40 mg PO DAILY metformin 1,000 mg PO BIDWM omeprazole 20 mg PO BID pravastatin 20 mg PO BEDTIME sodium chloride 0.9% 3 mL inhalation 6XD PRN spironolactone 25 mg PO DAILY tadalafil (Cialis) 5 mg PO DAILY 90 days tadalafil (Cialis) 20 mg PO .PRN PRN 90 days HPI HPI T2DM/LVM: Details: Pt is a 53 y/o male who presents today for a diabetic follow up. He last saw Dr. Salazar in June,. He has a hx of htn, ED, gerd, hld, t2dm, asthma, maurizio on cpap, anemia and depression. Endo: DM- A1c is 6.8. He is currently on lantus 60, lispro sliding scale, glimepiride 2mg in am, metformin 1,000mg BID. Intolerant to Trulicity and Ozempic due to eructation/flatulence foul, bloating. cgm- usage 92%, avg glucose 147, GMI 6.8%, Variability 30%. Very hyperglycemic 2%, Hyperglycemic 21%, in range 76%, low 1% hypoglycemia- often late afternoon 3-4 PM. Treats with candy and then eating a meal. He states it has been low during the day because he has been out in the yard cleaning, mowing the lawn etc. He states that he will sometimes forget to eat. hyperglycemia- after meals CV: Bp today in office is 148/64. He is on lisinopril 40 mg, norvasc 5 mg and spironolactone 25 mg. He did not yet take all of his bp meds. states that he only took 2 and has to take 1 more when he gets home. He does check bps at home and states they are normal. He is on pravastatin 20 mg. No myalgias. Last ldl was 65. [facility] Medical History (Updated 10/21/23 @ 14:16 by Genia Ford PA-C) HTN (hypertension) Type 2 diabetes mellitus with diabetic polyneuropathy Iron deficiency anemia Cirrhosis Severe persistent allergic asthma Foot drop, left Lumbar radiculopathy, chronic Abnormal ECG Obesity due to excess calories Hx of pancreatitis Acid reflux Elevated alkaline phosphatase measurement Asthma MAURIZIO on CPAP Morbid obesity Degeneration of L4-L5 intervertebral disc Diabetes Anemia Apnea, sleep Dyspnea on exertion Obstructive sleep apnea Surgical History Hx of cholecystectomy History of back surgery Family History Father Diabetes Hearing loss Mother CVD (cardiovascular disease) Thyroid condition Paternal Grandmother Diabetes Paternal Aunt Diabetes Sister No problems noted. Sister No problems noted. 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 Vibratory sensation no present. Skin intact. General: Yes normal to inspection Results Reviewed Results Reviewed: Laboratory Tests 07/25/23 07/25/23 10/04/23 14:20 14:30 13:02 Sodium 141 Potassium 4.0 Chloride 105 Carbon Dioxide 31 H Anion Gap 9 L BUN 10 Creatinine 1.02 Estimated GFR > 60 Estimat Average Glucose 148 Hgb A1c (Clinic) 6.5 H Hemoglobin A1c % 6.8 H Calcium 9.2 Urine Creatinine 18.16 Urine Microalbumin < 5.0 Microalb/Creat Ratio TNP Assessment & Plan Assessment & Plan (1) Type 2 diabetes mellitus with diabetic polyneuropathy: Code(s): E11.42 - Type 2 diabetes mellitus with diabetic polyneuropathy Category: Medical Qualifiers: Diabetes mellitus custodial insulin use: with custodial use Qualified Code(s): E11.42 - Type 2 diabetes mellitus with diabetic polyneuropathy; Z79.4 - [facility] (current) use of insulin Plan: will continue current treatment plan. doing well with some hypoglycemia during late afternoon. states he is doing better with his diet and will do better with remembering to eat consistently. glucose tabs ordered. reviewed rules of 15s again with pt. discussed possibly starting jardiance and d/c glimepiride but ultimately wanted to leave current plan in place. pt will follow up in 3 months and check labs prior to next appointment. he will follow up sooner if needed. pt understands and agrees with the plan. (2) Hyperlipidemia: Code(s): E78.5 - Hyperlipidemia, unspecified Category: Medical Plan: continue pravastatin. (3) HTN (hypertension): Code(s): I10 - Essential (primary) hypertension Category: Medical Qualifiers: Hypertension type: primary hypertension Qualified Code(s): I10 - Essential (primary) hypertension Plan: elevated above goal. has upcoming appointment with pcp.will keep a record and bring to that appointment. Orders: Orders Hemoglobin A1c Today E11.42 - Type 2 diabetes mellitus with diabetic polyneuropathy, I10 - Essential (primary) hypertension, Z79.4 - [facility] (current) use of insulin Microalbumin, Random (w Creat) Today E11.42 - Type 2 diabetes mellitus with diabetic polyneuropathy, I10 - Essential (primary) hypertension, Z79.4 - intermediate designer (current) use of insulin Comprehensive [place]. Panel Fast Today E11.42 - Type 2 diabetes mellitus with diabetic polyneuropathy, I10 - Essential (primary) hypertension, Z79.4 - [facility] (current) use of insulin Medications: New glucose (Dex4 Glucose) until symptoms of low blood sugar are controlled 16 grams (4 x 4 gram) PO Q15M 30 days PRN 100 tabs 2RF hypoglycemia Coding Level of Care Code Est Pt Level 4 (32890) Complex EM visit Add On G2211 Diagnoses Type 2 diabetes mellitus with diabetic polyneuropathy, with long-term current use of insulin E11.42; Z79.4 Diabetes mellitus termite inspector insulin use: with custodial use Hyperlipidemia E78.5 Primary hypertension I10 Hypertension type: primary hypertension
[2023-10-21 14:05] LABS: Glucose, Whole Blood 142 mg/dL (60-115)
== END 2023-10-21 14:24 | disposition home or self-care (01) ==
PROVIDERS: PCP Internal Medicine Geriatric Medicine; Visit Provider Physician Assistant
DX: E11.42 Type 2 diabetes mellitus with diabetic polyneuropathy (principal); Z79.4 Long term (current) use of insulin; E78.5 Hyperlipidemia, unspecified; I10 Essential (primary) hypertension
CPT/HCPCS: 99214

== ENCOUNTER → 2023-10-21 13:50 | Outpatient (BNVA) | payer MEDICAID, SELFPAY | PROVIDERS: PCP Internal Medicine Geriatric Medicine; Visit Provider Physician Assistant | DX: E11.42 Type 2 diabetes mellitus with diabetic polyneuropathy (principal); Z79.4 Long term (current) use of insulin; E78.5 Hyperlipidemia, unspecified; I10 Essential (primary) hypertension | CPT/HCPCS: 82947; 99212 ==

== ENCOUNTER 2023-10-30 14:29 | Outpatient (AMB) | payer MEDICAID, SELFPAY ==
[2023-10-30 14:40] VITALS: BP 130/70; PULSE 107; O2SAT 97; BMI 45.7
--- NOTE | 2023-10-30 14:40 | HO.NEPHOV ---
Vital Signs 10/30/23 14:40 Height 5 ft 6 in Weight 283 lb 4 oz BMI 45.7 BP 130/70 Blood Pressure Location Lt brachial Position Sitting Pulse 107 H Pulse Source Pulse Oximeter Pulse Oximetry (%) 97 Oxygen Delivery Method Room Air Intake Visit Reasons: Edema- LVM Storage Receipt Poster Required: No Accompanied by: Self / Same As Patient Allergies pollen Allergy (Mild, Uncoded 10/21/23 13:55) ichy eyes HPI Comments Details: I had the pleasure of seeing Manjit in follow up for management of his edema. He has a BMI of 47 with hypertension, diabetes as well as sleep apnea among other medical issues. There is a documentation that he has liver cirrhosis but he has not had any decompensation or serum albumin checked recently. He is not known to have any proteinuria. He has not had an echocardiogram for long time. He denies excess sodium in the diet. His urine output is good. He claims to be compliant with his CPAP. He denies any chest pain, worsening shortness of breath, weight gain, urinary symptoms. He denies taking excessive nonsteroidal anti-inflammatories. His current diuretics are helping him with his lower extremity swelling [facility] Medical History (Updated 10/21/23 @ 14:16 by Genia Ford PA-C) HTN (hypertension) Type 2 diabetes mellitus with diabetic polyneuropathy Iron deficiency anemia Cirrhosis Severe persistent allergic asthma Foot drop, left Lumbar radiculopathy, chronic Abnormal ECG Obesity due to excess calories Hx of pancreatitis Acid reflux Elevated alkaline phosphatase measurement Asthma MAURIZIO on CPAP Morbid obesity Degeneration of L4-L5 intervertebral disc Diabetes Anemia Apnea, sleep Dyspnea on exertion Obstructive sleep apnea Surgical History Hx of cholecystectomy History of back surgery Family History Father Diabetes Hearing loss Mother CVD (cardiovascular disease) Thyroid condition Paternal Grandmother Diabetes Paternal Aunt Diabetes Sister No problems noted. Sister No problems noted. 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 Review of Systems Const All systems reviewed & are unremarkable except as noted in HPI and below Physical Exam Vital Signs: Last Vital Signs Pulse 107 H 10/30/23 14:40 BP 130/70 10/30/23 14:40 Pulse Ox 97 10/30/23 14:40 Oxygen Delivery Method Room Air 10/30/23 14:40 BMI result Body Mass Index 45.7 Const General: comfortable and no acute distress Orientation/consciousness: patient oriented x3 HEENT Head: Yes normocephalic Mouth: Normal oral and palatal mucosa present Eyes EOM: EOMs intact bilaterally Neck Neck: Yes supple Resp Auscultation: clear to auscultation bilaterally Cardio Jugular venous distension: no JVD Rate: regular rate GI Palpation (GI): Soft to palpation Auscultation: normal bowel sounds General: Yes no CVA tenderness Back/Spine/Pelvis Back: no CVA tenderness Skin General skin exam: no rashes or lesions noted Neuro General: patient oriented x3 and moves all extremities Results Reviewed Nephrology Results: Sodium 141 mmol/L (135-145) 10/04/23 Potassium 4.0 mmol/L (3.3-5.1) 10/04/23 Chloride 105 mmol/L (96-108) 10/04/23 Carbon Dioxide 31 mmol/L (22-29) H 10/04/23 BUN 10 mg/dL (9-16) 10/04/23 Creatinine 1.02 mg/dL (0.5-1.4) 10/04/23 Calcium 9.2 mg/dL (8.4-10.2) 10/04/23 Assessment & Plan Assessment & Plan (1) Edema: Code(s): R60.9 - Edema, unspecified Category: Medical Qualifiers: Edema type: localized Qualified Code(s): R60.0 - Localized edema Plan Manjit has edema most likely due to multifactorial etiology. I ordered an echocardiogram to look at the right ventricular systolic function as well as pulmonary artery pressures. He is not known to have any proteinuria. Medical records suggest he has liver cirrhosis . I ordered USS abdomen, AST, ALT and serum albumin. I also ordered iron studies to R/O hemochromatosis. He is on amlodipine which also may be contributing to some edema. He is on spironolactone. He can continue on bumetanide 2 mg daily. He should minimize sodium in the diet and should get medical help to lose weight. He should avoid nonsteroidal anti-inflammatories. He was asked to get his electrolytes renal function tested given increase in diuretic dose. He will be followed up for ongoing investigations and continued care. Time spent for consultation, review of records, encounter and documentation 42 minutes. Answered all questions Orders: Orders Ferritin Today R60.0 - Localized edema Alanine Aminotransferase Today R60.0 - Localized edema Aspartate Amino Transferase Today R60.0 - Localized edema Albumin Level Today R60.0 - Localized edema Other Ref Test - Misc Today R60.0 - Localized edema CA Echo Limited Today R60.0 - Localized edema IRON PROFILE Today R60.0 - Localized edema US abdomen limited Today R60.0 - Localized edema Creatinine Today R60.0 - Localized edema Blood Urea Nitrogen Today R60.0 - Localized edema Electrolytes Today R60.0 - Localized edema Coding Level of Care Code Est Pt Level 5 (09476) Diagnoses Localized edema R60.0 Edema type: localized
== END 2023-10-30 15:28 | disposition home or self-care (01) ==
PROVIDERS: PCP Internal Medicine Geriatric Medicine; Referring Provider Internal Medicine Geriatric Medicine; Visit Provider Internal Medicine Nephrology
DX: R60.0 Localized edema (principal); I10 Essential (primary) hypertension; E11.8 Type 2 diabetes mellitus with unspecified complications
CPT/HCPCS: 99215

== ENCOUNTER → 2023-10-30 14:29 | Outpatient (BNVA) | payer MEDICAID, SELFPAY | PROVIDERS: PCP Internal Medicine Geriatric Medicine; Visit Provider Internal Medicine Nephrology | DX: R60.0 Localized edema (principal) | CPT/HCPCS: 99212 ==

== ENCOUNTER 2023-11-06 15:21 | Outpatient (REF) | payer MEDICAID, SELFPAY ==
[2023-11-06 16:14] LABS: Anion Gap 12 (12-20); Blood Urea Nitrogen 12 mg/dL (9-16); Calcium 9.1 mg/dL (8.4-10.2); Carbon Dioxide 26 mmol/L (22-29); Chloride 105 mmol/L (96-108); Estimated Glomerular Filt Rate > 60; Glucose Random 119 mg/dL (60-115); Magnesium 1.6 mg/dL (1.6-2.6); Potassium 4.1 mmol/L (3.3-5.1); Sodium 139 mmol/L (135-145)
[2023-11-07 04:49] LABS: Hepatitis A Antibody IgG REACTIVE (Nonreactive); ~Hepatitis A Antibody IgG 2.63 S/CO (0.00-0.99)
[2023-11-07 05:17] LABS: HBS Num1 0.74 mIU/mL (0-7.99); HBsAGNum1 0.45 S/CO (0.00-0.99); Hepatitis B Surface Antigen Negative (Negative); ~Hepatitis B Surface Antibody NONREACTIVE (Nonreactive); ~Hepatitis C Antibody Nonreactive (Nonreactive)
== END 2023-11-06 15:22 | disposition home or self-care (01) ==
LOC: HO.HHCL 15:21
PROVIDERS: Visit Provider Internal Medicine Geriatric Medicine
DX: R60.0 Localized edema (principal); R25.2 Cramp and spasm; K74.69 Other cirrhosis of liver
CPT/HCPCS: 36415; 80048; 83735; 86706; 86708; 86803; 87340

== ENCOUNTER 2023-11-08 09:47 | Outpatient (REF) | payer MEDICAID, SELFPAY ==
--- NOTE | ~2023-11-08 | US_ITS ---
EXAMINATION: US ABDOMEN LIMITED CLINICAL INFORMATION: Localized edema, history of cirrhosis. COMPARISON: Ultrasound abdomen complete 06/20/2023. Ultrasound abdomen complete with liver elastography 07/17/2021. TECHNIQUE: Real-time imaging of the right upper quadrant abdominal viscera. FINDINGS: PANCREAS: Obscured. LIVER: The liver is enlarged measuring 25.3 cm in sagittal dimension. Coarsened echotexture. There is diffuse increased liver parenchymal echogenicity, consistent with infiltrative hepatocellular disease. No definite focal lesion is seen, but evaluation is limited due to poor sound beam penetration through the coarse echogenic liver parenchyma. There is no intrahepatic biliary duct dilatation seen. GALLBLADDER: Surgically absent. COMMON BILE DUCT: Normal in caliber measuring 0.4 cm in diameter. RIGHT KIDNEY: No hydronephrosis. No renal calculi or focal parenchymal lesions. The kidney measures 12.6 cm in maximum dimension. FREE FLUID: None. US/US abdomen limited IMPRESSION: Chronic liver disease. Hepatomegaly. Electronically signed by: Lake Magaña MD 11/08/2023 01:19 PM EDT
== END 2023-11-08 09:48 | disposition home or self-care (01) ==
LOC: HO.US 09:47
PROVIDERS: PCP Internal Medicine Geriatric Medicine; Visit Provider Internal Medicine Nephrology
DX: R60.0 Localized edema (principal)
CPT/HCPCS: 76705

== ENCOUNTER → 2023-11-25 14:51 | Outpatient (REF) | payer MEDICAID, SELFPAY ==
--- NOTE | 2023-11-25 14:54 | CA_ITS ---
Transthoracic Echocardiogram Patient (Last, First, Middle): Manjit May A Gender: Male Date of : 1970 Age: 53 Procedure Date: 11/25/2023 Procedure Type: Transthoracic Echocardiogram Location: OP Height: 167.64 cm Weight: 127.92 kg BSA: 2.31 m2 Heart Rate: bpm BP: 138 / 80 mmHg Retail Pharmacy Manager: Referring MD: Lionel Navas MD Symptoms: R60.0 - Localized edema, MAURIZIO, Assess RV function, PA Pressure Study Quality: Fair w Contrast ECG Rhythm: Sinus Conclusions: - The left ventricular systolic function is normal. The visually estimated ejection fraction is between 60-65%. - There is moderately increased left ventricular wall thickness. - There is no evidence of pulmonary hypertension. Findings Procedure Information Contrast agent, definity, is being given per protocol without apparent complications. Left Ventricle Normal left ventricular cavity size. There is moderately increased left ventricular wall thickness. The left ventricular systolic function is normal. The visually estimated ejection fraction is between 60-65%. There is no evidence of regional wall motion abnormalities. Right Ventricle Normal right ventricular cavity size and systolic function. Tricuspid Valve There is trace tricuspid valve regurgitation. There is no evidence of pulmonary hypertension. Venous The inferior vena cava is normal in size and collapses greater than 50% with inspiration. Prior Study Comparison No significant change compared to prior study dated: 08/21/2021. Measurements 2D Linear Measurements IVSd: 1.34 0.6-0.9/0.6-1.0 cm LVIDd: 5.04 3.9-5.3/4.2-5.9 cm LVIDd Index: 2.18 2.4-3.2/2.2-3.1 cm/m2 LVIDs: 3.29 2.0-3.6 cm LVPWd: 1.36 0.7-1.1 cm LV Mass: 349.09 67-162/88-224 g LV Mass Index: 151.12 43-95/49-115 g/m2 2D Systolic Function EF 4C: 65.00 >55% EF 2C: 74.40 >55% EF BiP: 70.80 >55% Mitral Valve MV Pk E: 1.95 Diastolic Function MV Pk E: 1.95 Tricuspid Valve TR Pk Damian: 2.04 TR Pk Grad: 17.00 RA Press: 3.00 RVSP: 20.00 Updated in Other Vendor System with Status of Final David Licona MD electronically signed on 11/26/2023 9:26:04 AM with status of Final
== END ==
LOC: HO.CARD 14:51
PROVIDERS: PCP Internal Medicine Geriatric Medicine; Visit Provider Internal Medicine Nephrology
DX: R60.0 Localized edema (principal)
CPT/HCPCS: 93308; Q9957

== ENCOUNTER → 2023-11-25 14:54 | Outpatient (BNV) | payer MEDICAID, SELFPAY | PROVIDERS: PCP Internal Medicine Geriatric Medicine; Visit Provider Internal Medicine | DX: R60.0 Localized edema (principal) | CPT/HCPCS: 93308 ==

== ENCOUNTER 2023-11-29 15:46 | Outpatient (REF) | payer MEDICAID, SELFPAY ==
[2023-11-29 18:15] LABS: Alanine Aminotransferase 24 U/L (0-40); Albumin Level 3.8 g/dL (3.5-5.0); Anion Gap 13 (12-20); Aspartate Amino Transferase 43 U/L (5-37); Blood Urea Nitrogen 14 mg/dL (9-16); Carbon Dioxide 26 mmol/L (22-29); Chloride 103 mmol/L (96-108); Estimated Glomerular Filt Rate > 60; Ferritin 34 ng/mL (20-250); Iron 31 mcg/dL (45-160); Percent Iron Saturation 10 % (15-50); Potassium 3.9 mmol/L (3.3-5.1); Sodium 138 mmol/L (135-145); Total Iron Binding Capacity 322 mcg/dL (228-428); Unsaturated Iron Binding 291 ug/dL
[2023-12-09 01:19] LABS: NT-proBNP 57 pg/mL (<125)
== END 2023-11-29 15:47 | disposition home or self-care (01) ==
LOC: HO.LAB 15:46
PROVIDERS: PCP Internal Medicine Geriatric Medicine; Visit Provider Internal Medicine Nephrology
DX: R60.0 Localized edema (principal)
CPT/HCPCS: 36415; 80051; 82040; 82565; 82728; 83540; 83880; 84450; 84460; 84520

== ENCOUNTER → 2023-12-04 14:17 | Outpatient (BNVA) | payer MEDICAID, SELFPAY | PROVIDERS: PCP Internal Medicine Geriatric Medicine; Visit Provider Internal Medicine Nephrology | DX: I10 Essential (primary) hypertension (principal); R60.0 Localized edema; E11.9 Type 2 diabetes mellitus without complications; Z99.89 Dependence on other enabling machines and devices | CPT/HCPCS: 99212 ==

== ENCOUNTER 2023-12-04 14:33 | Outpatient (AMB) | payer MEDICAID, SELFPAY ==
--- NOTE | 2023-12-04 14:21 | HO.NEPHOV_ITS ---
Vital Signs 12/04/23 14:25 Height 5 ft 6 in Weight 286 lb 6 oz BMI 46.2 BP 140/80 H Blood Pressure Location Rt radial Position Sitting Pulse 104 H Pulse Source Pulse Oximeter Pulse Oximetry (%) 97 Oxygen Delivery Method Room Air Intake Visit Reasons: 1 month f/u- LVM Academic Guidance Specialist Required: No Accompanied by: Self / Same As Patient Allergies pollen Allergy (Mild, Uncoded 10/21/23 13:55) ichy eyes HPI Comments Details: I had the pleasure of seeing Manjit in follow up for management of his edema. He has a BMI of 47 with hypertension, diabetes as well as sleep apnea among other medical issues. His serum albumin is 3.8 and Pro BNP is pending. He is not known to have any proteinuria. His Echocardiogram has been good. He denies excess sodium in the diet. His urine output is good. He claims to be compliant with his CPAP. He denies any chest pain, worsening shortness of breath, weight gain, urinary symptoms. He denies taking excessive nonsteroidal anti- inflammatories. His current diuretics are helping him with his lower extremity swelling [facility] Medical History (Updated 10/21/23 @ 14:16 by Genia Ford PA-C) HTN (hypertension) Type 2 diabetes mellitus with diabetic polyneuropathy Iron deficiency anemia Cirrhosis Severe persistent allergic asthma Foot drop, left Lumbar radiculopathy, chronic Abnormal ECG Obesity due to excess calories Hx of pancreatitis Acid reflux Elevated alkaline phosphatase measurement Asthma MAURIZIO on CPAP Morbid obesity Degeneration of L4-L5 intervertebral disc Diabetes Anemia Apnea, sleep Dyspnea on exertion Obstructive sleep apnea Surgical History Hx of cholecystectomy History of back surgery Family History Father Diabetes Hearing loss Mother CVD (cardiovascular disease) Thyroid condition Paternal Grandmother Diabetes Paternal Aunt Diabetes Sister No problems noted. Sister No problems noted. 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 Physical Exam Vital Signs: Last Vital Signs Pulse 104 H 12/04/23 14:25 BP 140/80 H 12/04/23 14:25 Pulse Ox 97 12/04/23 14:25 Oxygen Delivery Method Room Air 12/04/23 14:25 BMI result Body Mass Index 46.2 Const General: comfortable and no acute distress Orientation/consciousness: patient oriented x3 HEENT Head: Yes normocephalic Mouth: Normal oral and palatal mucosa present Eyes EOM: EOMs intact bilaterally Neck Neck: Yes supple Resp Auscultation: clear to auscultation bilaterally Cardio Jugular venous distension: no JVD Rate: regular rate GI Palpation (GI): Soft to palpation Auscultation: normal bowel sounds General: Yes no CVA tenderness Back/Spine/Pelvis Back: no CVA tenderness Skin General skin exam: no rashes or lesions noted Neuro General: patient oriented x3 and moves all extremities Results Reviewed Nephrology Results: Sodium 138 mmol/L (135-145) 11/29/23 Potassium 3.9 mmol/L (3.3-5.1) 11/29/23 Chloride 103 mmol/L (96-108) 11/29/23 Carbon Dioxide 26 mmol/L (22-29) 11/29/23 BUN 14 mg/dL (9-16) 11/29/23 Creatinine 1.22 mg/dL (0.5-1.4) 11/29/23 Calcium 9.1 mg/dL (8.4-10.2) 11/06/23 Assessment & Plan Assessment & Plan (1) HTN (hypertension): Code(s): I10 - Essential (primary) hypertension Category: Medical Qualifiers: Hypertension type: primary hypertension Qualified Code(s): I10 - Essential (primary) hypertension (2) Edema: Code(s): R60.9 - Edema, unspecified Category: Medical Qualifiers: Edema type: localized Qualified Code(s): R60.0 - Localized edema Plan Manjit has edema most likely due to multifactorial etiology. His Echocardiogram was OK. He is not known to have any proteinuria. His serum albumin was 3.8. His Pro BNP is pending. I reviewed his abdminal USS. His iron studies have been fine. He is on amlodipine which also may be contributing to some edema. He is on spironolactone. I discontinued his Amlodipine. He can continue on bumetanide 2 mg daily. He may need more medications for BP control given discontinuation of Amlodipine. He should minimize sodium in the diet and should get medical help to lose weight. He should avoid nonsteroidal anti-inflammatories. Answered all questions Coding Level of Care Code Est Pt Level 4 (10637) Diagnoses Primary hypertension I10 Hypertension type: primary hypertension Localized edema R60.0 Edema type: localized
[2023-12-04 14:25] VITALS: BP 140/80; PULSE 104; O2SAT 97; BMI 46.2
== END 2023-12-04 14:37 | disposition home or self-care (01) ==
PROVIDERS: PCP Internal Medicine Geriatric Medicine; Referring Provider Internal Medicine Geriatric Medicine; Visit Provider Internal Medicine Nephrology
DX: I10 Essential (primary) hypertension (principal); R60.0 Localized edema
CPT/HCPCS: 99214

== ENCOUNTER 2023-12-05 14:09 | Outpatient (AMB) | payer MEDICAID, SELFPAY ==
--- NOTE | 2023-12-05 14:37 | MHC.AMDMED ---
Intake Intake Visit Reasons: 30 min-conf Ring Barker Operator Required: No Accompanied by: Self / Same As Patient Allergies pollen Allergy (Mild, Uncoded 10/21/23 13:55) ichy eyes HPI Comprehensive Diabetes Asmnt Most Recent Diabetes Results: Creatinine 1.22 mg/dL (0.5-1.4) 11/29/23 Blood Urea Nitrogen 14 mg/dL (9-16) 11/29/23 Sodium 138 mmol/L (135-145) 11/29/23 Potassium 3.9 mmol/L (3.3-5.1) 11/29/23 Chloride 103 mmol/L (96-108) 11/29/23 Carbon Dioxide 26 mmol/L (22-29) 11/29/23 Calcium 9.1 mg/dL (8.4-10.2) 11/06/23 AST 43 U/L (5-37) H 11/29/23 ALT 24 U/L (0-40) 11/29/23 Albumin 3.8 g/dL (3.5-5.0) 11/29/23 [facility] Medical History (Updated 10/21/23 @ 14:16 by Genia Ford PA-C) HTN (hypertension) Type 2 diabetes mellitus with diabetic polyneuropathy Iron deficiency anemia Cirrhosis Severe persistent allergic asthma Foot drop, left Lumbar radiculopathy, chronic Abnormal ECG Obesity due to excess calories Hx of pancreatitis Acid reflux Elevated alkaline phosphatase measurement Asthma MAURIZIO on CPAP Morbid obesity Degeneration of L4-L5 intervertebral disc Diabetes Anemia Apnea, sleep Dyspnea on exertion Obstructive sleep apnea Surgical History Hx of cholecystectomy History of back surgery Family History Father Diabetes Hearing loss Mother CVD (cardiovascular disease) Thyroid condition Paternal Grandmother Diabetes Paternal Aunt Diabetes Sister No problems noted. Sister No problems noted. 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 3% Hyperglycemia:28%? Time in Range:?69% Average glucose for the last 2 weeks?152 mg/dL Patient has episodes of hypoglycemia throughout the last 14 days. Patient denies symptoms of hypoglycemia, although he did state sometimes he feels very sleepy, or very hungry Reviewed following topics: Hypoglycemia and Hyperglycemia Signs and symptoms? Causes?? Treatment? Preventing hypoglycemia? When to seek medical attention Patient given handout for both how to treat hypoglycemia, and hyperglycemia Emphasize the importance of checking with glucometer is sensor is alerting a low blood sugar, but you were not experiencing hypoglycemic symptoms Patient is also having hyperglycemia overnight, reports snacking on crackers at night. Suggested to patient he try snacks with 0 carbohydrates at bedtime to see if it alleviates overnight hyperglycemia. Suggested cucumbers, with dip, sugar free popsicles or Jell-O Patient stated that he has limited snap benefits, and can not afford to buy extra foods Patient given information regarding HIP, suggested patient use Healthy incentive program benefit, which will enable him to buy fruits and vegetables from local vendors saving his snap benefits for staple groceries. Patient given information about [employer], where he can use the HIP benefits Patient able to insert sensor independently at home without issue.? Portions of this note were created using voice recognition software, please excuse any words or phrases that may have been misinterpreted. Patient Instructions: Patient will try switching to low carbohydrate snacks at night Patient will follow-up with sales branch manager in 1 month Coding Level of Care Code Est Pt Level 1 (69143) Diagnoses Type 2 diabetes mellitus with diabetic polyneuropathy, with long-term current use of insulin E11.42; Z79.4 Diabetes mellitus termite exterminator insulin use: with detention use
== END 2023-12-05 14:38 | disposition home or self-care (01) ==
PROVIDERS: PCP Internal Medicine Geriatric Medicine; Visit Provider Registered Nurse Diabetes Educator
DX: E11.42 Type 2 diabetes mellitus with diabetic polyneuropathy (principal); Z79.4 Long term (current) use of insulin

== ENCOUNTER → 2023-12-05 14:09 | Outpatient (BNVA) | payer MEDICAID, SELFPAY | PROVIDERS: PCP Internal Medicine Geriatric Medicine; Visit Provider Registered Nurse Diabetes Educator | DX: E11.42 Type 2 diabetes mellitus with diabetic polyneuropathy (principal); Z79.4 Long term (current) use of insulin | CPT/HCPCS: 99211 ==

== ENCOUNTER 2023-12-13 09:12 | Day surgery (SDC) | payer MEDICAID, SELFPAY ==
--- NOTE | 2023-12-11 13:35 | HO.ANESPROP2 ---
Documented by User: Kiesha Huston NP 12/12/23 10:08 HPI - Anesthesia Eval Consult details Narrative: 53yo M for ?Upper Endoscopy s/p EGD 05/2023 with GA-ETT 7.5 Cirrhosis, no ascites on 10/2023 [facility] Active Problems Active Problems: All Active Problems Hyperlipidemia (Acute) HTN (hypertension) (Acute) Edema (Acute) Orthopnea (Acute) Severe persistent asthma (Acute) Type 2 diabetes mellitus with diabetic polyneuropathy (Acute) Erectile dysfunction associated with type 2 diabetes mellitus (Acute) Erosive esophagitis (Acute) Lower extremity edema (Acute) Foot drop, left (Acute) Lumbar radiculopathy, chronic (Acute) Hand numbness (Acute) Major depressive disorder, severe (Acute) Environmental allergies (Acute) Gallstone pancreatitis (Acute) MAURIZIO on CPAP (Acute) Anemia (Acute) Apnea, sleep (Acute) Past Medical History Medical History (Updated 10/21/23 @ 14:16 by Genia Ford PA-C) HTN (hypertension) Type 2 diabetes mellitus with diabetic polyneuropathy Iron deficiency anemia Cirrhosis Severe persistent allergic asthma Foot drop, left Lumbar radiculopathy, chronic Abnormal ECG Obesity due to excess calories Hx of pancreatitis Acid reflux Elevated alkaline phosphatase measurement Asthma MAURIZIO on CPAP Morbid obesity Degeneration of L4-L5 intervertebral disc Diabetes Anemia Apnea, sleep Dyspnea on exertion Obstructive sleep apnea Family History Family History Father Diabetes Hearing loss Mother CVD (cardiovascular disease) Thyroid condition Paternal Grandmother Diabetes Paternal Aunt Diabetes Sister No problems noted. Sister No problems noted. Sister Asthma Brother Arthritis Fluid retention Family history of problems with anesthesia: No Surgical History Surgical History Hx of cholecystectomy History of back surgery History of Problems with Anesthesia: No Social History Social History Household Members: Spouse Housing: House Do you presently have visiting nurse or other home services: No Alcohol intake: never Patient Tobacco Use Status: Never used Tobacco Use of substances other than those prescribed or required for medical reasons: No Are you DNR?: No Advance Directives: No Advance Directives Information Provided: Yes Advance Directives on File: No Advance Directives Date on File: 06/09/20 Nutrition Risks: No Nutritional Risk service: No Current occupational status: unemployed and disabled 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 Meds Allergies Allergy/AdvReac Type Severity Reaction Status Date / Time pollen Allergy Mild ichy eyes Uncoded 10/21/23 13:55 Home Medications ?Medication ?Instructions ?Recorded ?Confirmed ?Last Taken ?Type albuterol sulfate 90 mcg/actuation 2 puff inhalation Q4-6H PRN 06/19/23 10/21/23 12/13/23 History aerosol inhaler (Ventolin HFA) Wheezing gabapentin 300 mg capsule 300 mg PO TID 06/19/23 10/21/23 Unknown History insulin lispro 100 unit/mL 1 sliding scale dose subcut 06/19/23 10/21/23 Unknown History subcutaneous solution USEASDIRECTD lisinopril 40 mg tablet 40 mg PO DAILY 06/19/23 10/21/23 Unknown History metformin 1,000 mg tablet 1,000 mg PO BIDWM 06/19/23 10/21/23 Unknown History pravastatin 20 mg tablet 20 mg PO BEDTIME 06/19/23 10/21/23 Unknown History sodium chloride 0.9 % for 3 ml inhalation 6XD PRN breathing 06/19/23 10/21/23 Unknown History nebulization fluticasone furoate 200 1 inh inhalation DAILY 09/19/23 10/21/23 Unknown History mcg/actuation blister powder for inhalation (Arnuity Ellipta) acetaminophen 500 mg tablet 500 mg PO Q6H PRN mild pain 10/04/23 10/21/23 Unknown History diclofenac sodium 1 % topical gel 2 g topical QID PRN low back pain 10/04/23 10/21/23 Unknown History glimepiride 2 mg tablet 2 mg PO DAILY 10/04/23 10/21/23 Unknown History spironolactone 25 mg tablet 25 mg PO DAILY 10/04/23 10/21/23 Unknown History Exam Pertinent Lab Results Pertinent Lab Results: Laboratory Tests 07/26/23 11/29/23 15:32 16:01 WBC 8.4 Hgb 10.5 L Hct 34.1 L D Plt Count 407 H Sodium 138 Potassium 3.9 Chloride 103 Carbon Dioxide 26 BUN 14 Creatinine 1.22 Narrative Narrative: ECHO 10/2023 Conclusions: - The left ventricular systolic function is normal. The visually estimated ejection fraction is between 60-65%. - There is moderately increased left ventricular wall thickness. - There is no evidence of pulmonary hypertension. EKG 05/2023 Vent. Rate : 141 BPM Atrial Rate : 141 BPM P-R Int : 132 ms QRS Dur : 070 ms QT Int : 276 ms P-R-T Axes : 042 025 106 degrees QTc Int : 422 ms Poor data quality Sinus tachycardia Low voltage QRS Nonspecific ST and T wave abnormality Abnormal ECG When compared with ECG of 13-JUN-2021 10:13, No significant changes seen US abdomen limited 10/2023 IMPRESSION: Chronic liver disease. Hepatomegaly. Assessment and Plan Assessment Anesthesia Assessment: Chart Reviewed Final Anesthetic Review Family History of Problems with Anesthesia: No History of Problems with Anesthesia: No Documented by User: Sol Cabrera MD 12/13/23 10:17 [facility] Past Medical History Medical History (Updated 10/21/23 @ 14:16 by Genia Ford PA-C) HTN (hypertension) Type 2 diabetes mellitus with diabetic polyneuropathy Iron deficiency anemia Cirrhosis Severe persistent allergic asthma Foot drop, left Lumbar radiculopathy, chronic Abnormal ECG Obesity due to excess calories Hx of pancreatitis Acid reflux Elevated alkaline phosphatase measurement Asthma MAURIZIO on CPAP Morbid obesity Degeneration of L4-L5 intervertebral disc Diabetes Anemia Apnea, sleep Dyspnea on exertion Obstructive sleep apnea Family History Family History Father Diabetes Hearing loss Mother CVD (cardiovascular disease) Thyroid condition Paternal Grandmother Diabetes Paternal Aunt Diabetes Sister No problems noted. Sister No problems noted. Sister Asthma Brother Arthritis Fluid retention Surgical History Surgical History Hx of cholecystectomy History of back surgery Social History Social History Household Members: Spouse Housing: House Do you presently have visiting nurse or other home services: No Alcohol intake: never Patient Tobacco Use Status: Never used Tobacco Use of substances other than those prescribed or required for medical reasons: No Are you DNR?: No Advance Directives: No Advance Directives Information Provided: Yes Advance Directives on File: No Advance Directives Date on File: 06/09/20 Nutrition Risks: No Nutritional Risk service: No Current occupational status: unemployed and disabled 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 Meds Allergies Allergy/AdvReac Type Severity Reaction Status Date / Time pollen Allergy Mild ichy eyes Uncoded 10/21/23 13:55 Home Medications ?Medication ?Instructions ?Recorded ?Confirmed ?Last Taken ?Type albuterol sulfate 90 mcg/actuation 2 puff inhalation Q4-6H PRN 06/19/23 10/21/23 12/13/23 History aerosol inhaler (Ventolin HFA) Wheezing gabapentin 300 mg capsule 300 mg PO TID 06/19/23 10/21/23 Unknown History insulin lispro 100 unit/mL 1 sliding scale dose subcut 06/19/23 10/21/23 Unknown History subcutaneous solution USEASDIRECTD lisinopril 40 mg tablet 40 mg PO DAILY 06/19/23 10/21/23 Unknown History metformin 1,000 mg tablet 1,000 mg PO BIDWM 06/19/23 10/21/23 Unknown History pravastatin 20 mg tablet 20 mg PO BEDTIME 06/19/23 10/21/23 Unknown History sodium chloride 0.9 % for 3 ml inhalation 6XD PRN breathing 06/19/23 10/21/23 Unknown History nebulization fluticasone furoate 200 1 inh inhalation DAILY 09/19/23 10/21/23 Unknown History mcg/actuation blister powder for inhalation (Arnuity Ellipta) acetaminophen 500 mg tablet 500 mg PO Q6H PRN mild pain 10/04/23 10/21/23 Unknown History diclofenac sodium 1 % topical gel 2 g topical QID PRN low back pain 10/04/23 10/21/23 Unknown History glimepiride 2 mg tablet 2 mg PO DAILY 10/04/23 10/21/23 Unknown History spironolactone 25 mg tablet 25 mg PO DAILY 10/04/23 10/21/23 Unknown History Exam Airway Mallampati Class: III TM Dist: <=3cm Neck ROM: Limited Heart: rrr Lungs: cta Assessment and Plan Assessment Anesthesia Assessment: Anesthesia Plan Discussed Final Anesthetic Review NPO: Yes ASA Class: III Final Preanesthetic Review: No Changes in Pt Med Stat, Meds/Allgs Chart Reviewed, Consent Obtained/Reviewed and Anes Risks/Benef Reviewed Patient Risk: Intermediate Anesthetic Plan Anesthetic Plan: GA Disposition: Standard PACU Documented by User: Deepti Purcell MD 12/13/23 10:20 [facility] Past Medical History Medical History (Updated 10/21/23 @ 14:16 by Genia Ford PA-C) HTN (hypertension) Type 2 diabetes mellitus with diabetic polyneuropathy Iron deficiency anemia Cirrhosis Severe persistent allergic asthma Foot drop, left Lumbar radiculopathy, chronic Abnormal ECG Obesity due to excess calories Hx of pancreatitis Acid reflux Elevated alkaline phosphatase measurement Asthma MAURIZIO on CPAP Morbid obesity Degeneration of L4-L5 intervertebral disc Diabetes Anemia Apnea, sleep Dyspnea on exertion Obstructive sleep apnea Family History Family History Father Diabetes Hearing loss Mother CVD (cardiovascular disease) Thyroid condition Paternal Grandmother Diabetes Paternal Aunt Diabetes Sister No problems noted. Sister No problems noted. Sister Asthma Brother Arthritis Fluid retention Surgical History Surgical History Hx of cholecystectomy History of back surgery Social History Social History Household Members: Spouse Housing: House Do you presently have visiting nurse or other home services: No Alcohol intake: never Patient Tobacco Use Status: Never used Tobacco Use of substances other than those prescribed or required for medical reasons: No Are you DNR?: No Advance Directives: No Advance Directives Information Provided: Yes Advance Directives on File: No Advance Directives Date on File: 06/09/20 Nutrition Risks: No Nutritional Risk service: No Current occupational status: unemployed and disabled 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 Meds Allergies Allergy/AdvReac Type Severity Reaction Status Date / Time pollen Allergy Mild ichy eyes Uncoded 10/21/23 13:55 Home Medications ?Medication ?Instructions ?Recorded ?Confirmed ?Last Taken ?Type albuterol sulfate 90 mcg/actuation 2 puff inhalation Q4-6H PRN 06/19/23 10/21/23 12/13/23 History aerosol inhaler (Ventolin HFA) Wheezing gabapentin 300 mg capsule 300 mg PO TID 06/19/23 10/21/23 Unknown History insulin lispro 100 unit/mL 1 sliding scale dose subcut 06/19/23 10/21/23 Unknown History subcutaneous solution USEASDIRECTD lisinopril 40 mg tablet 40 mg PO DAILY 06/19/23 10/21/23 Unknown History metformin 1,000 mg tablet 1,000 mg PO BIDWM 06/19/23 10/21/23 Unknown History pravastatin 20 mg tablet 20 mg PO BEDTIME 06/19/23 10/21/23 Unknown History sodium chloride 0.9 % for 3 ml inhalation 6XD PRN breathing 06/19/23 10/21/23 Unknown History nebulization fluticasone furoate 200 1 inh inhalation DAILY 09/19/23 10/21/23 Unknown History mcg/actuation blister powder for inhalation (Arnuity Ellipta) acetaminophen 500 mg tablet 500 mg PO Q6H PRN mild pain 10/04/23 10/21/23 Unknown History diclofenac sodium 1 % topical gel 2 g topical QID PRN low back pain 10/04/23 10/21/23 Unknown History glimepiride 2 mg tablet 2 mg PO DAILY 10/04/23 10/21/23 Unknown History spironolactone 25 mg tablet 25 mg PO DAILY 10/04/23 10/21/23 Unknown History Exam Airway Mallampati Class: II (protruding front teeth, missing a couple, denies anything loose)
[2023-12-11 14:04] VITALS: BMI 46.3
[2023-12-13 09:58] VITALS: BMI 46.2
[2023-12-13 10:11] VITALS: BP 183/103; PULSE 97; RESP 16; TEMP 36.6
[2023-12-13 10:14] VITALS: BP 155/84
--- NOTE | 2023-12-13 10:22 | MHC.SHP ---
Pre-Procedural Eval Section A - 24 Hr Update-Section A only Date of Service: 12/13/23 The patient is an INPATIENT: No The patient has been examined within 24 hours of the surgical procedure. The History & Physical has been completed within 30 days and I have reviewed it.: No Section B - Complete if H&P > 30 days Chief Complaint: gerd, follow-up of erosive esophagitis Relevant Family History (Specify if Yes): No Relevant Social History: None Present Medications: see Short Stay Collaborative assessment Medical History: Significant History (Foot drop, left Lumbar radiculopathy, chronic Diabetic neuropathy associated with diabetes mellitus due to underlying condition Abnormal ECG Type 2 diabetes mellitus with diabetic polyneuropathy Obesity due to excess calories Hx of pancreatitis Acid reflux Elevated alkaline phosphatase measurement A) History of Previous Operations: Relevant previous surgery/procedure and date(s) (Hx of cholecystectomy History of back surgery) Allergies: Allergies Allergy/AdvReac Type Severity Reaction Status Date / Time pollen Allergy Mild ichy eyes Uncoded 10/21/23 13:55 Review of Systems Sugical H&P ROS: Negative: Constitution, Cardiovascular, Respiratory and Gastrointestinal Exam Surgical H&P Exam: Normal: Heart, Normal: Lungs, Normal: Extremities and Normal: Abdomen Plan Diagnosis/Plan: Change (proceed with EGD) I have reviewed the history and physical and performed a pertinent physical examination on my patient. No changes have occurred unless specified. Time Spent With Patient Time: Total time managing care of this patient today ____ minutes.
[2023-12-13 10:23] LABS: Glucose, Whole Blood 140 mg/dL (60-115)
[2023-12-13] MEDS: Lactated Ringers 1,000 ML 100 ML IVCONT (10:33)
--- NOTE | 2023-12-13 11:07 | W.PM.OPN ---
Operative Note Operative Note Date of Service: 12/13/23 Narrative: FLEXIBLE TRANSORAL UPPER GASTROINTESTINAL ENDOSCOPY WITH SNARE POLYPECTOMY AND HEMOCLIP PLACEMENT Pre-op diagnosis: GERD, follow-up of erosive esophagitis Post-op diagnosis: GERD, Gastric polyps/nodules, Endoscopist:? Kike Childress MD Anesthesia:?GA with ET tube UPPER ENDOSCOPY Consent: Indications for the procedure and potential complications of bleeding, perforation, reaction to medications and missed diagnosis were discussed with the patient and informed consent was obtained. Instrument: Olympus GIF H 190 mid size upper endoscope Monitoring: Vital signs and clinical assessment, continuous EKG monitoring, Pulse oximetry, Carbon Dioxide monitoring and blood pressure monitoring were done throughout the procedure. Procedure: The patient was placed in the left lateral decubitis position and pre-procedure medications were administered and a bite block was placed. The endoscope was inserted into the mouth and advanced under direct vision to the third part of duodenum. A careful inspection was made as the upper endoscope was withdrawn including a retroflexed examination of the proximal stomach; Findings and interventions are described below. Findings: Larynx: ET tube in place Esophagus: Erosive esophagitis seen on past EGD healed completely. GE junction at 42 cms. No Bales's. Stomach: Prominent gastric folds in the gastric body and fundus - benign on past biopsies. Moderate diffuse gastric erythema with multiple 4-5 mm nodules with central erosions in the antrum. A 12-15 mm polyp with central ulceration and slow oozing - removed with a hot snare. Polypectomy site was closed with 1 hemoclip. Resected polyp passed into the distal duodenum before it could be retrieved with a Rosas net Grade 2 flap valve on retroflexed examination of the cardia. Duodenum: Normal bulb and descending duodenum. Intervention: Biopsies as noted above Impression and Post Procedure Diagnosis: Endoscopy Findings: ESOPHAGUS: Erosive esophagitis healed completely STOMACH: Prominent gastric folds and benign appearing antral nodules A 12-15 mm polyp with central ulceration and slow oozing - removed with a hot snare. Polypectomy site was closed with 1 hemoclip. Resected polyp passed into the distal duodenum before it could be retrieved with a Rosas net Plan: Pt has a FU appointment on 12/26/[address] Childress. Above findings were reviewed with the patient and relevant handouts were given and the discharge area.
[2023-12-13 11:25] VITALS: BP 162/88; PULSE 105; RESP 16; TEMP 36.2; O2SAT 99
[2023-12-13 11:40] VITALS: BP 167/93; PULSE 98; RESP 16; O2SAT 99
[2023-12-13 11:55] VITALS: BP 152/89; PULSE 97; RESP 16; TEMP 36.6; O2SAT 96
== END 2023-12-13 12:36 | disposition home or self-care (01) ==
PROVIDERS: PCP Internal Medicine Geriatric Medicine; Visit Provider Internal Medicine Gastroenterology
PROC: 0DJ08ZZ Inspection of Upper Intestinal Tract, Via Natural or Artificial Opening Endoscopic (ICD-10-PCS; CPT 43235; principal; 2023-12-13 10:30)
DX: K31.7 Polyp of stomach and duodenum (principal); K21.9 Gastro-esophageal reflux disease without esophagitis; Z87.19 Personal history of other diseases of the digestive system; E11.42 Type 2 diabetes mellitus with diabetic polyneuropathy; I10 Essential (primary) hypertension; E78.5 Hyperlipidemia, unspecified; J45.40 Moderate persistent asthma, uncomplicated; D50.9 Iron deficiency anemia, unspecified; K74.60 Unspecified cirrhosis of liver; Z79.4 Long term (current) use of insulin; Z79.84 Long term (current) use of oral hypoglycemic drugs; Z79.51 Long term (current) use of inhaled steroids; Z79.899 Other long term (current) drug therapy
CPT/HCPCS: 43251; 82947; J1100; J2003; J2250; J2405; J2704; J3010

== ENCOUNTER → 2023-12-13 09:12 | Outpatient (BNV) | payer MEDICAID, SELFPAY | PROVIDERS: PCP Internal Medicine Geriatric Medicine; Visit Provider Internal Medicine Gastroenterology | DX: K21.00 Gastro-esophageal reflux disease with esophagitis, without bleeding (principal); K31.7 Polyp of stomach and duodenum | CPT/HCPCS: 43251 ==

== ENCOUNTER 2023-12-25 12:45 | Outpatient (AMB) | payer MEDICAID, SELFPAY ==
[2023-12-25 12:58] VITALS: BP 144/72; PULSE 103; O2SAT 97; BMI 46.6
--- NOTE | 2023-12-25 12:58 | MHC.OFFVIS ---
Vital Signs 12/25/23 12:58 Height 5 ft 6 in Weight 288 lb 12.889 oz BMI 46.6 BP 144/72 H Blood Pressure Location Lt brachial Position Sitting Pulse 103 H Pulse Source Doppler Pulse Oximetry (%) 97 Oxygen Delivery Method Room Air Intake Visit Reasons: Asthma Allergies pollen Allergy (Mild, Uncoded 10/21/23 13:55) ichy eyes HPI HPI Asthma: Details: 53-year-old gentleman, lifetime nonsmoker, with underlying history of at least moderate diastolic dysfunction, followed for dyspnea on exertion, MAURIZIO on CPAP, and severe persistent asthma.?He has been compliant with CPAP with good control of his underlying symptoms.? His asthma symptoms were controlled on Fasenra, Wixela, and albuterol MDI. His primary switched his Wixela to Arnuity previously with no significant changes. However, patient now states that he has been using 40 5 times a day. He also recently was not able to use his diuretic for approximately 3 days after an endoscopy and only started taking it again approximately 4 days prior, thus he complains of worsening orthopnea over the last week. [facility] Medical History HTN (hypertension) Type 2 diabetes mellitus with diabetic polyneuropathy Iron deficiency anemia Cirrhosis Severe persistent allergic asthma Foot drop, left Lumbar radiculopathy, chronic Abnormal ECG Obesity due to excess calories Hx of pancreatitis Acid reflux Elevated alkaline phosphatase measurement Asthma MAURIZIO on CPAP Morbid obesity Degeneration of L4-L5 intervertebral disc Diabetes Anemia Apnea, sleep Dyspnea on exertion Obstructive sleep apnea Surgical History Hx of cholecystectomy History of back surgery Family History Father Diabetes Hearing loss Mother CVD (cardiovascular disease) Thyroid condition Paternal Grandmother Diabetes Paternal Aunt Diabetes Sister No problems noted. Sister No problems noted. 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 Review of Systems Const Denies daytime sleepiness, Denies excessive sweating, Denies fatigue, Denies fever(s), Denies lethargy, Denies malaise, Denies night sweats, Denies snoring and Denies weight loss Eyes Denies blurry vision and Denies itchy eyes ENT Denies nasal congestion, Denies post nasal drip, Denies sinus pain, Denies sinus pressure and Denies other ( Thrush) Card Denies chest pain, Reports pedal edema, Denies dyspnea, Reports dyspnea on exertion, Reports orthopnea and Denies paroxysmal nocturnal dyspnea Resp Denies cough, Denies hemoptysis, Denies excessive phlegm production, Denies dyspnea, Reports dyspnea on exertion, Denies snoring and Denies wheezing GI Denies abdominal pain and Denies heartburn Musc Denies myalgias, Denies arthralgias and Denies joint swelling Skin/Breast Denies rash Neuro Denies memory loss and Denies seizure-like activity Psych Denies abnormal sleep pattern, Denies anxiety and Denies memory loss Endo Denies excessive sweating, Denies fatigue and Denies heat intolerance Brennan/Lymph Denies easy bruising Aller/Immun Denies itchy eyes, Denies seasonal rhinorrhea and Denies wheezing Physical Exam Vital Signs: Last Vital Signs Pulse 103 H 12/25/23 12:58 BP 144/72 H 12/25/23 12:58 Pulse Ox 97 12/25/23 12:58 Oxygen Delivery Method Room Air 12/25/23 12:58 BMI result Body Mass Index 46.6 Const General: no acute distress and alert Nutritional Appearance: obese Orientation/consciousness: Other orientation findings ( oriented) HEENT Head: Yes atraumatic Eyes General: appearance normal, both eyes and all related structures Sclerae: sclerae normal EOM: EOMs intact bilaterally Neck Neck: Yes supple Lymphatic: no lymphadenopathy noted Resp Effort & Inspection: normal respiratory effort and no use of accessory muscles Auscultation: clear to auscultation bilaterally Cardio Rate: regular rate Rhythm: regular rhythm Heart sounds: no gallops, no murmurs and no rubs Skin General skin exam: other ( warm) Extrem General: No clubbing, No cyanosis and Yes edema (1+ bilateral) Assessment & Plan Assessment & Plan (1) Environmental allergies: Code(s): Z91.09 - Other allergy status, other than to drugs and biological substances Category: Medical Plan: Reasonable control on Fasenra. Continue regimen. (2) Severe persistent asthma: Code(s): J45.50 - Severe persistent asthma, uncomplicated Category: Medical Plan: Previously controlled on Fasenra, Wixela, and albuterol MDI. Patient has been switched to Arnuity by his primary care provider with somewhat worsening control. Will switch Arnuity to Breo. Continue baseline regimen. (3) MAURIZIO on CPAP: Code(s): G47.33 - Obstructive sleep apnea (adult) (pediatric); Z99.89 - Dependence on other enabling machines and devices Category: Medical Plan: Well controlled on current CPAP therapy. Continue CPAP therapy. (4) Lower extremity edema: Code(s): R60.0 - Localized edema Category: Medical Plan: Previously well controlled on bumetanide 2 mg daily, however patient has not been able to take his diuretic for paroxysmally 3 day secondary to having post endoscopy swollen and has restarted his Bumex only 4 days prior with slowly improving symptoms. He is also following up with Nephrology. Medications: New fluticasone furoate-vilanterol 200-25 mcg/dose (Breo Ellipta) 1 inh inhalation DAILY 1 ea 6RF Coding Level of Care Code Est Pt Level 4 (14160) Complex EM visit Add On G2211 Diagnoses Environmental allergies Z91.09 Severe persistent asthma J45.50 MAURIZIO on CPAP G47.33; Z99.89 Lower extremity edema R60.0
== END 2023-12-25 13:19 | disposition home or self-care (01) ==
LOC: HO.HPS 12:45
PROVIDERS: PCP Registered Nurse; Visit Provider Internal Medicine Pulmonary Disease
DX: Z91.09 Other allergy status, other than to drugs and biological substances (principal); J45.50 Severe persistent asthma, uncomplicated; G47.33 Obstructive sleep apnea (adult) (pediatric); Z99.89 Dependence on other enabling machines and devices; R60.0 Localized edema
CPT/HCPCS: 99214

== ENCOUNTER → 2023-12-25 12:45 | Outpatient (BNVA) | payer MEDICAID, SELFPAY | PROVIDERS: PCP Registered Nurse; Visit Provider Internal Medicine Pulmonary Disease | DX: J45.50 Severe persistent asthma, uncomplicated (principal); G47.33 Obstructive sleep apnea (adult) (pediatric); I51.89 Other ill-defined heart diseases; R60.0 Localized edema; Z91.09 Other allergy status, other than to drugs and biological substances; Z99.89 Dependence on other enabling machines and devices | CPT/HCPCS: 99212 ==

== ENCOUNTER 2023-12-26 13:28 | Outpatient (AMB) | payer MEDICAID, SELFPAY ==
--- NOTE | 2023-12-26 13:33 | MHC.OFFVIS ---
Vital Signs 12/26/23 13:36 Height 5 ft 6 in Weight 288 lb BMI 46.5 BP 143/64 H Blood Pressure Location Lt brachial Position Sitting Pulse 98 Intake Visit Reasons: EGD results Intake Note: patient follow up for Constipation and diarrhea, EGD results. Patient cc: abdominal bloating with diarrhea. 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 Accompanied by: Self / Same As Patient Allergies cat dander (cats) Allergy (Intermediate, Verified 05/04/25 16:05) Watery Eye mold Allergy (Unknown, Verified 05/04/25 16:05) Difficulty Breathing pollen extracts Allergy (Verified 05/04/25 16:05) Unknown Medication List - Last Reconciled 12/26/23 by Kike Childress MD acetaminophen 500 mg PO Q6H PRN albuterol sulfate 90 mcg/actuation (Ventolin HFA) 2 puffs inhalation Q4-6H PRN bumetanide 2 mg (2 x 1 mg) PO DAILY 30 days calcium carbonate (Calcium Antacid) mg PO diclofenac sodium 1% 2 grams topical QID PRN flash glucose sensor (FreeStyle Monty 2 Sensor kit) USE DIRECTED. CHANGE EVERY 14 DAYS fluticasone furoate-vilanterol 200-25 mcg/dose (Breo Ellipta) 1 inh inhalation DAILY gabapentin 300 mg PO TID glimepiride 2 mg PO DAILY glucose (Dex4 Glucose) 16 grams (4 x 4 gram) PO Q15M PRN 30 days insulin glargine (Lantus U-100 Insulin) 60 units (0.6 mL) subcut BEDTIME 30 days insulin lispro 1 sliding scale dose See Protocol subcut USEASDIRECTD lisinopril 40 mg PO DAILY magnesium oxide 400 mg PO TID metformin 1,000 mg PO BIDWM omeprazole 20 mg PO BID pravastatin 20 mg PO BEDTIME sodium chloride 0.9% 3 mL inhalation 6XD PRN spironolactone 25 mg PO DAILY tadalafil (Cialis) 5 mg PO DAILY 90 days tadalafil (Cialis) 20 mg PO .PRN PRN 90 days HPI HPI EGD results: Details: GI clinic visit for this 53 YM with morbid obesity, severe persistent asthma, type 2 diabetes mellitus on insulin, HFpEF, depression, obstructive sleep apnea and hypertension here to review EGD results TODAY'S VISIT: Patient reports abdominal bloating with diarrhea. EGD results reviewed with the patient. Noted abd pain after the procedure which resolved after 4-5 days Patient denies symptoms of heartburn, dysphagia, nausea, vomiting, change in appetite or weight. Denies recent change in bowel habits, constipation, diarrhea, black stools or rectal bleeding. Patient denies major cardiac or pulmonary problems, loud snoring or sleep apnea Denies problems with anesthesia in the past. Denies being on chronic anticoagulation. Patient denies known family history of colon polyps, colon cancer or other GI malignancies. LABS IN [facility] : Reviewed IMAGING STUDIES: 05/2023 ABD US SHOWED: Heterogeneous liver echotexture and slightly irregular contour of the liver questionable for hepatocellular disease and mild cirrhotic change. No focal hepatic lesion. There is no intrahepatic biliary duct dilatation seen. No ascites. ENDOSCOPIC STUDIES: Reviewed PAST GI HISTORY BY REVIEW OF MEDICAL RECORDS: 06/20/23 Pt seen during [place] [facility] [place] 53 YM with morbid obesity, severe persistent asthma, type 2 diabetes mellitus on insulin, HFpEF, depression, obstructive sleep apnea and hypertension seen at [facility] [place] on 06/19/23 with worsening shortness of breath, associated with chest tightness, dry cough and wheezing since evening of 06/18/23. He tried breathing treatment at home without improvement of symptoms. Pt reported lower extremity edema and denied fever or chills, headache, palpitations or dizziness. Pt reports a hx of chronic heartburn with regurgitation for the past several years with increased symptoms over the past 2 months. He was previously taking Omeprazole and was switched to twice daily Famotidine due to low Magnesium levels. Patient gives a history of intermittent constipation and denies noticing any black stools or blood in the stool. He admits to taking a baby aspirin daily and denies use of NSAIDs. Denies tobacco smoking, alcohol abuse or illicit drug use. Family hx is negative for colon polyps or GI malignancy. An uncle had gastric ulcer. Pt lives with a partner and has no children. 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 In the ED, he was found to have an oxygen saturation in the 70s and was placed and was placed on a non-rebreather mask. He also was found to have tachypnea and tachycardia. Blood pressure is stable. Labs showed no leukocytosis and lactic acidosis of 2.6. Hemoglobin is 9.1 (it was 11.8 on September 2022) and no thrombocytopenia. There are no electrolyte imbalances. There is hyperglycemia, last BG is 301. Renal function is adequate. LFTS showed elevated AST and alk-phos with normal Bilirubin, ALT and albumin. Initial VBG: PH 7.31, pCO2 57 and recheck pH 7.47 and pCO2 29. CXR is negative. ED tx: Solu-Medrol 125 mg IV, albuterol 7.5 mg x 1 53 YM with morbid obesity, severe persistent asthma, type 2 diabetes mellitus on insulin, HFpEF, depression, obstructive sleep apnea and hypertension admitted to [facility] on 06/19/23 with worsening shortness of breath, associated with chest tightness, dry cough and wheezing and lower extremity edema. Pt reports a hx of chronic heartburn with regurgitation for the past several years with increased symptoms over the past 2 months. Labs showed hb of 9.1 (it was 11.8 on September 2022) and no thrombocytopenia. Pt has a sleep apnea and uses a CPAP machine. Acute on chronic anemia related to iron def - likely due to UGI source (erosive esophagitis, possible varices, PUD, gastritis, GAVE or UGI AVMs). Lower GI source is less likely given negative colonoscopy 3 years ago. RECOMMENDATIONS: 1. Agree with IV PPI and IV iron infusion 2. Abdominal US - order placed. 3. Proceed with EGD in the am (needs GA due BMI of > 45) PFSH Medical History Iron deficiency anemia Cirrhosis Severe persistent allergic asthma Abnormal ECG Obesity due to excess calories Hx of pancreatitis Acid reflux Elevated alkaline phosphatase measurement Asthma Degeneration of L4-L5 intervertebral disc Diabetes Obstructive sleep apnea Surgical History Hx of cholecystectomy History of back surgery Family History Father Diabetes Hearing loss Mother CVD (cardiovascular disease) Thyroid condition Paternal Grandmother Diabetes High blood pressure Paternal Aunt Diabetes High blood pressure Sister No problems noted. Sister No problems noted. 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 Review of Systems Const All systems reviewed & are unremarkable except as noted in HPI and below Physical Exam Vital Signs: Last Vital Signs Pulse 98 12/26/23 13:36 BP 143/64 H 12/26/23 13:36 BMI result Body Mass Index 46.5 Const General: comfortable and no acute distress Nutritional Appearance: obese (Morbidly obese) Orientation/consciousness: patient oriented x3 HEENT Head: Yes normocephalic Mouth: Normal oral and palatal mucosa present Eyes EOM: EOMs intact bilaterally Neck Neck: Yes supple Resp Auscultation: clear to auscultation bilaterally Cardio Jugular venous distension: no JVD Rate: regular rate GI Palpation (GI): Soft to palpation Auscultation: normal bowel sounds General: Yes no CVA tenderness Back/Spine/Pelvis Back: no CVA tenderness Skin General skin exam: no rashes or lesions noted Neuro General: patient oriented x3 and moves all extremities Extrem General: Yes edema Assessment & Plan Assessment & Plan (1) Anemia: Code(s): D64.9 - Anemia, unspecified Category: Medical (2) Elevated LFTs: Code(s): R79.89 - Other specified abnormal findings of blood chemistry Category: Medical Plan 54 YM with morbid obesity, severe persistent asthma, type 2 diabetes mellitus on insulin, HFpEF, depression, obstructive sleep apnea and hypertension hospitalized [place] [facility] [place], with worsening shortness of breath, associated with chest tightness, dry cough and wheezing and lower extremity edema. Pt reported a hx of chronic heartburn with regurgitation for the past several years with increased symptoms over the past few months. Labs showed hb of 9.1 (it was 11.8 on September 2022) and no thrombocytopenia. Pt has a sleep apnea and uses a CPAP machine. Acute on chronic anemia related to iron def - likely due to UGI source (erosive esophagitis, possible varices, PUD, gastritis, GAVE or UGI AVMs). Lower GI source is less likely given negative colonoscopy 3 years ago. ABD US SHOWED: Heterogeneous liver echotexture and slightly irregular contour of the liver questionable for hepatocellular disease and mild cirrhotic change. No focal hepatic lesion. There is no intrahepatic biliary duct dilatation seen. No ascites. 11/2023 EGD SHOWED: ESOPHAGUS: Erosive esophagitis healed completely STOMACH: Prominent gastric folds and benign appearing antral nodules A 12-15 mm polyp with central ulceration and slow oozing - removed with a hot snare. Polypectomy site was closed with 1 hemoclip. Resected polyp passed into the distal duodenum before it could be retrieved with a Rosas net 12/26/23 Patient reports abdominal bloating with diarrhea. EGD results reviewed with the patient. Noted abd pain after the procedure which resolved after 4-5 days Patient denies symptoms of heartburn, dysphagia, nausea, vomiting, change in appetite or weight. Pt advised to check labs for evaluation of liver disease FU in 4 weeks Orders: Orders Complete Blood Count no Diff 01/01/24 D64.9 - Anemia, unspecified, R79.89 - Other specified abnormal findings of blood chemistry Comprehensive Met. Panel 01/01/24 D64.9 - Anemia, unspecified, R79.89 - Other specified abnormal findings of blood chemistry JOHNATHAN Reflex Titer and Pattern 01/01/24 D64.9 - Anemia, unspecified, R79.89 - Other specified abnormal findings of blood chemistry Ferritin 01/01/24 D64.9 - Anemia, unspecified, R79.89 - Other specified abnormal findings of blood chemistry Prothrombin Time INR 01/01/24 D64.9 - Anemia, unspecified, R79.89 - Other specified abnormal findings of blood chemistry Liver Fibrosis Pnl 01/01/24 D64.9 - Anemia, unspecified, R79.89 - Other specified abnormal findings of blood chemistry Coding Level of Care Code Est Pt Level 4 (53979) Diagnoses Anemia D64.9 Elevated LFTs R79.89 Time Spent (min) 21
[2023-12-26 13:36] VITALS: BP 143/64; PULSE 98; BMI 46.5
== END 2023-12-26 14:30 | disposition home or self-care (01) ==
PROVIDERS: PCP Internal Medicine Geriatric Medicine; Visit Provider Internal Medicine Gastroenterology
DX: D64.9 Anemia, unspecified (principal); R79.89 Other specified abnormal findings of blood chemistry
CPT/HCPCS: 99499

== ENCOUNTER → 2023-12-26 13:28 | Outpatient (BNVA) | payer MEDICAID, SELFPAY | PROVIDERS: PCP Internal Medicine Geriatric Medicine; Visit Provider Internal Medicine Gastroenterology ==

== ENCOUNTER → 2023-12-26 13:28 | Outpatient (BNVA) | payer MEDICAID, SELFPAY | PROVIDERS: PCP Internal Medicine Geriatric Medicine; Visit Provider Internal Medicine Gastroenterology | DX: D64.9 Anemia, unspecified (principal); R79.89 Other specified abnormal findings of blood chemistry ==

== ENCOUNTER 2024-01-01 13:42 | Outpatient (AMB) | payer MEDICAID, SELFPAY ==
--- NOTE | 2024-01-01 13:46 | HO.NEPHOV_ITS ---
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 He has a BMI of 47 with hypertension, diabetes as well as sleep apnea among other medical issues. His serum albumin is 3.8 and Pro BNP is normal. He is not known to have any proteinuria. His Echocardiogram has been good. He denies excess sodium in the diet. His urine output is good. He claims to be compliant with his CPAP. He denies any chest pain, worsening shortness of breath, weight gain, urinary symptoms. He denies taking excessive nonsteroidal anti-inflammatories. His current diuretics are helping him with his lower extremity swelling [facility] Medical History HTN (hypertension) Type 2 diabetes mellitus with diabetic polyneuropathy Iron deficiency anemia Cirrhosis Severe persistent allergic asthma Foot drop, left Lumbar radiculopathy, chronic Abnormal ECG Obesity due to excess calories Hx of pancreatitis Acid reflux Elevated alkaline phosphatase measurement Asthma MAURIZIO on CPAP Morbid obesity Degeneration of L4-L5 intervertebral disc Diabetes Anemia Apnea, sleep Dyspnea on exertion Obstructive sleep apnea Surgical History Hx of cholecystectomy History of back surgery Family History Father Diabetes Hearing loss Mother CVD (cardiovascular disease) Thyroid condition Paternal Grandmother Diabetes Paternal Aunt Diabetes Sister No problems noted. Sister No problems noted. 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 Review of Systems Const All systems reviewed & are unremarkable except as noted in HPI and below Physical Exam Vital Signs: Last Vital Signs Pulse 102 H 01/01/24 13:49 BP 150/90 H 01/01/24 13:49 Pulse Ox 96 01/01/24 13:49 Oxygen Delivery Method Room Air 01/01/24 13:49 BMI result Body Mass Index 46.2 Const General: comfortable and no acute distress Orientation/consciousness: patient oriented x3 HEENT Head: Yes normocephalic Mouth: Normal oral and palatal mucosa present Eyes EOM: EOMs intact bilaterally Neck Neck: Yes supple Resp Auscultation: clear to auscultation bilaterally Cardio Jugular venous distension: no JVD Rate: regular rate GI Palpation (GI): Soft to palpation Auscultation: normal bowel sounds General: Yes no CVA tenderness Back/Spine/Pelvis Back: no CVA tenderness Skin General skin exam: no rashes or lesions noted Neuro General: patient oriented x3 and moves all extremities Extrem General: Yes no pedal edema Results Reviewed Nephrology Results: Sodium 138 mmol/L (135-145) 11/29/23 Potassium 3.9 mmol/L (3.3-5.1) 11/29/23 Chloride 103 mmol/L (96-108) 11/29/23 Carbon Dioxide 26 mmol/L (22-29) 11/29/23 BUN 14 mg/dL (9-16) 11/29/23 Creatinine 1.22 mg/dL (0.5-1.4) 11/29/23 Assessment & Plan Assessment & Plan (1) Edema: Code(s): R60.9 - Edema, unspecified Category: Medical Qualifiers: Edema type: localized Qualified Code(s): R60.0 - Localized edema Plan Manjit has edema most likely due to multifactorial etiology. His Echocardiogram was OK. He is not known to have any proteinuria. His serum albumin was 3.8. His Pro BNP is normal. I reviewed his abdminal USS. His iron studies have been fine. He was on amlodipine which also may be contributing to some edema. He is on spironolactone. I discontinued his Amlodipine. He can continue on bumetanide 2 mg daily. He may need more medications for BP control given discontinuation of Amlodipine. He should minimize sodium in the diet and should get medical help to lose weight. He should avoid nonsteroidal anti-inflammatories. Answered all questions Orders: Orders Creatinine 10 Weeks R60.0 - Localized edema Blood Urea Nitrogen 10 Weeks R60.0 - Localized edema Electrolytes 10 Weeks R60.0 - Localized edema Coding Level of Care Code Est Pt Level 4 (31000) Diagnoses Localized edema R60.0 Edema type: localized
[2024-01-01 13:49] VITALS: BP 140/90; PULSE 102; O2SAT 96; BMI 46.2
== END 2024-01-01 14:08 | disposition home or self-care (01) ==
LOC: HO.HKA 13:43
PROVIDERS: PCP Internal Medicine Geriatric Medicine; Visit Provider Internal Medicine Nephrology
DX: R60.0 Localized edema (principal)
CPT/HCPCS: 99214

== ENCOUNTER 2024-01-01 13:42 | Outpatient (REF) | payer MEDICAID, SELFPAY ==
[2024-01-01 15:38] LABS: Hematocrit 36.8 % (42.0-52.0); Hemoglobin 11.4 g/dl (14.0-18.0); Mean Corpuscular Volume 77.5 fL (80.0-98.0); Mean Platelet Volume 9.7 fL (9.4-12.4); Platelet Count 391 X10*3/uL (160-400); Red Blood Count 4.75 X10*6/uL (4.60-5.80); Red Cell Distribution Width 14.6 % (11.0-16.0); White Blood Count 8.9 X10*3/uL (4.8-10.8)
[2024-01-01 15:48] LABS: Prothrombin Time 12.1 SEC (10.9-12.4)
[2024-01-01 16:11] LABS: Alanine Aminotransferase 27 U/L (0-40); Alkaline Phosphatase 142 U/L (39-117); Anion Gap 16 (12-20); Aspartate Amino Transferase 33 U/L (5-37); Bilirubin Total 0.4 mg/dL (0.0-1.0); Blood Urea Nitrogen 19 mg/dL (9-16); Calcium 10.1 mg/dL (8.4-10.2); Carbon Dioxide 24 mmol/L (22-29); Chloride 102 mmol/L (96-108); Estimated Glomerular Filt Rate > 60; Glucose Random 158 mg/dL (60-115); Potassium 4.4 mmol/L (3.3-5.1); Sodium 138 mmol/L (135-145); Total Protein 7.7 g/dL (6.5-8.0)
[2024-01-01 16:19] LABS: Estimated Average Glucose 154 mg/dL; Hemoglobin A1C 164.9394 umol/L; Total Hemoglobin (HGBA1C) 3101.7166 umol/L
[2024-01-01 16:25] LABS: Prostate Specific Antigen 0.35 ng/mL (<0.05-4.0)
[2024-01-01 16:30] LABS: Ferritin 14 ng/mL (20-250)
[2024-01-07 07:53] LABS: Anti Nuclear Antibody Screen NEGATIVE (NEGATIVE)
[2024-01-11 02:12] LABS: FIB-ALT 18 U/L (9-46); FIB-Alpha-2-Macroglobulin 227 mg/dL (106-279); FIB-Apolipoprotein A1 171 mg/dL (94-176); FIB-GGT 186 U/L (3-95); FIB-Haptoglobin 237 mg/dL (43-212); FIB-Total Bilirubin 0.3 mg/dL (0.2-1.2); Liver Fibrosis Score 0.25; Liver Fibrosis Stage F0-F1; Nec Inflam Act Grade A0; Nec Inflam Act Score 0.06; Reference ID 5204610
== END 2024-01-01 13:43 | disposition home or self-care (01) ==
LOC: HO.LAB 13:42
PROVIDERS: Absent Provider Nurse Practitioner Family; PCP Internal Medicine Geriatric Medicine; Referring Provider Internal Medicine Gastroenterology; Visit Provider Internal Medicine Nephrology
DX: D64.9 Anemia, unspecified (principal); R79.89 Other specified abnormal findings of blood chemistry; E11.9 Type 2 diabetes mellitus without complications; E08.40 Diabetes mellitus due to underlying condition with diabetic neuropathy, unspecified; R60.0 Localized edema
CPT/HCPCS: 36415; 80053; 81596; 82728; 83036; 84153; 85027; 85610; 86038; 99212

== ENCOUNTER 2024-01-07 14:21 | Outpatient (AMB) | payer MEDICAID, SELFPAY ==
--- NOTE | 2024-01-07 14:33 | A.OFFVIS_ITS ---
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 CHANGE EVERY 14 DAYS fluticasone furoate-vilanterol 200-25 mcg/dose (Breo Ellipta) 1 inh inhalation DAILY gabapentin 300 mg PO TID glimepiride 2 mg PO DAILY glucose (Dex4 Glucose) 16 grams (4 x 4 gram) PO Q15M PRN 30 days insulin glargine (Lantus U-100 Insulin) 60 units (0.6 mL) subcut BEDTIME 30 days insulin lispro 1 sliding scale dose See Protocol subcut USEASDIRECTD lisinopril 40 mg PO DAILY magnesium oxide 400 mg PO TID metformin 1,000 mg PO BIDWM omeprazole 20 mg PO BID pravastatin 20 mg PO BEDTIME sodium chloride 0.9% 3 mL inhalation 6XD PRN spironolactone 25 mg PO DAILY tadalafil (Cialis) 5 mg PO DAILY 90 days tadalafil (Cialis) 20 mg PO .PRN PRN 90 days HPI Comments Details: Manjit is a very pleasant 53-year-old male patient of Dr. Stewart. He has a past medical history of iron deficiency anemia, cirrhosis, chronic lumbar radiculopathy, diabetic neuropathy associated with diabetes mellitus, obesity, acid reflux, asthma, and obstructive sleep apnea on CPAP. He presents to the office today for follow-up of his erectile dysfunction. In discussion with the patient today he reports feeling low-dose tadalafil and p.r.n. dosing tadalafil has been helpful with obtaining and maintaining his erections. He discusses feeling a significant improvement in being able to obtain his erections. He reports having followed up with Nephrology for his ongoing proteinuria. He otherwise denies any bothersome urinary issues. He denies urinary urgency, urinary frequency, incontinence, nocturia, hematuria, dysuria, foul smelling urine, changes to urinary stream, flank pain, fever, and or chills. He is happy with his current voiding parameters. Discussed at length potential causes of erectile dysfunction as well as further treatment options and risks and benefits of these treatment options. Discussed lifestyle modifications to assist with erectile dysfunction such as managing his diabetes and weight loss. A1c are as follows: 12/15 6.1, 04/18 5.9, 01/16 10.0, 05/17 8.8, 08/17 7.0, 03/20 8.6, 07/18 6.5, 01/18 7.0. Recent PSA results reviewed with the patient today PSA 01/18 0.4. He otherwise denies any other issues or concerns at this time. [facility] Medical History HTN (hypertension) Type 2 diabetes mellitus with diabetic polyneuropathy Iron deficiency anemia Cirrhosis Severe persistent allergic asthma Foot drop, left Lumbar radiculopathy, chronic Abnormal ECG Obesity due to excess calories Hx of pancreatitis Acid reflux Elevated alkaline phosphatase measurement Asthma MAURIZIO on CPAP Morbid obesity Degeneration of L4-L5 intervertebral disc Diabetes Anemia Apnea, sleep Dyspnea on exertion Obstructive sleep apnea Surgical History Hx of cholecystectomy History of back surgery Family History Father Diabetes Hearing loss Mother CVD (cardiovascular disease) Thyroid condition Paternal Grandmother Diabetes Paternal Aunt Diabetes Sister No problems noted. Sister No problems noted. 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 Review of Systems Const Reports no additional complaints Eyes Reports no additional complaints ENT Reports no additional complaints Card Reports as per HPI Resp Reports as per HPI GI Reports as per HPI Reports as per HPI Musc Reports as per HPI Neuro Reports no additional complaints Psych Reports no additional complaints Endo Reports as per HPI Brennan/Lymph Reports no additional complaints Aller/Immun Reports no additional complaints Physical Exam Const General: cooperative, comfortable, no acute distress, well developed, alert and awake Nutritional Appearance: overweight Orientation/consciousness: patient oriented x3 Limitations: no limitations HEENT Head: Yes normal to inspection, Yes normocephalic and Yes atraumatic Ears: hearing grossly normal bilaterally Eyes General: appearance normal, both eyes and all related structures Neck Neck: Yes normal visual inspection and Yes trachea midline Chest Chest palpation & inspection: normal inspection of the chest Resp Effort & Inspection: normal respiratory effort and able to speak in complete sentences Cardio Rate: regular rate GI Inspection: Yes normal to inspection General: Yes no CVA tenderness Back/Spine/Pelvis Back: no CVA tenderness Skin General skin exam: no rashes or lesions noted Neuro General: patient oriented x3 Extrem General: Yes normal to inspection Psych Appearance: grossly normal and well kempt Mental Status: mental status grossly normal Speech and movement: Normal speech and movement present and Clear speech present Affect: normal affect Attitude: cooperative Thought process: Normal thought process present Thought content: Normal thought content present Insight: Fair insight present (Psych) Judgement: Fair judgement present (Psych) Results AMB Urinalysis, Automated UA Leukoctes 0 Jennyfer/uL Last Edit by Ricardo Malloy on 01/07/24 15:01 UA Nitrite Last Edit by Overtime Mediamariah Malloy on 01/07/24 15:01 UA Urobilinogen 0.2 mg/dL Last Edit by Ricardo Malloy on 01/07/24 15:01 UA Protein 100 mg/dL Last Edit by Ricardo Malloy on 01/07/24 15:01 UA pH 6.0 Last Edit by Ricardo Ledesmalukas on 01/07/24 15:01 UA Blood 0 Vasu/uL Last Edit by Ricardo Malloy on 01/07/24 15:01 UA Specific [place] 1.025 Last Edit by Ricardo Malloy on 01/07/24 15:01 UA Ketone Last Edit by Ricardo Malloy on 01/07/24 15:01 UA Bilirubin 1 mg/dL Last Edit by Ricardo Malloy on 01/07/24 15:01 UA Glucose 0 mg/dL Last Edit by Ricardo Malloy on 01/07/24 15:01 Results Reviewed Results Reviewed: Laboratory Last Values Urine pH (Auto) 6.0 01/07/24 15:00 Specific [place] (Auto) 1.025 01/07/24 15:00 Urine Protein (Auto) 100 mg/dL 01/07/24 15:00 Glucose (UA)(Auto) 0 mg/dL 01/07/24 15:00 Urine Blood (Auto) 0 Vasu/uL 01/07/24 15:00 Urine Bilirubin (Auto) 1 mg/dL 01/07/24 15:00 Urine Urobilinogen (Auto) 0.2 mg/dL 01/07/24 15:00 Leukocyte Esterase (Auto) 0 Jennyfer/uL 01/07/24 15:00 Assessment & Plan Assessment & Plan (1) Erectile dysfunction associated with type 2 diabetes mellitus: Code(s): E11.69 - Type 2 diabetes mellitus with other specified complication; N52.1 - Erectile dysfunction due to diseases classified elsewhere Category: Medical Plan In office urinalysis results reviewed with the patient today; as noted above. Recent A1c and PSA results reviewed with the patient today; as noted above. He reports significant improvement in maintaining his erections with daily dosing of tadalafil as well as p.r.n. dosing; will continue; refills provided. He otherwise denies any bothersome urinary issues. He reports be happy with current voiding parameters. We discussed and stressed the importance of managing diabetes as well as weight loss to assist with ED as well as overall health and well-being. Follow-up in 6 months; or sooner with any issues, concerns, and or questions. Orders: Orders AMB Urinalysis Automated Today Z13.9 - Encounter for screening, unspecified Medications: Refilled tadalafil (Cialis) [id number] [facility] [id number] 5 mg PO DAILY 90 days 90 tabs 2RF tadalafil (Cialis) administer approximately 30min before sexual activity; do not use more than 1 dose per 24hrs. [id number] [facility] [id number] 20 mg PO .PRN 90 days PRN 30 tabs 2RF sexual activity Patient Instructions: The patient had an opportunity to ask questions regarding the treatment plan. All questions were answered. Physical exam, labs, and imaging were discussed and reviewed in detail. As well as risks, benefits, and discussion of treatment cho ices. No major barriers to understanding were identified. The patient expressed understanding and agreement with the above treatment plan. The patient was made aware they should contact our office by phone for worsening of their current condition, the appearance of new symptoms, or with any questions or concerns. Compliance is encouraged with any medications and follow up testing that is ordered. It is a privilege to be allowed the opportunity to participate in? your urological care.? Again, if you have any questions or concerns If you have any questions or concerns please do not hesitate to contact me. The office is [phone]. This note is constructed using voice recognition software. While every effort has been made to ensure accuracy discharge coordinator errors may have been included. Yours sincerely, STARR Sahu Coding Level of Care Code Est Pt Level 3 (67608) Diagnoses Erectile dysfunction associated with type 2 diabetes mellitus E11.69; N52.1
== END 2024-01-07 15:09 | disposition home or self-care (01) ==
PROVIDERS: PCP Internal Medicine Geriatric Medicine; Visit Provider Nurse Practitioner Family
DX: E11.69 Type 2 diabetes mellitus with other specified complication (principal); N52.1 Erectile dysfunction due to diseases classified elsewhere; Z13.9 Encounter for screening, unspecified
CPT/HCPCS: 99213

== ENCOUNTER → 2024-01-07 14:21 | Outpatient (BNVA) | payer MEDICAID, SELFPAY | PROVIDERS: PCP Internal Medicine Geriatric Medicine; Visit Provider Nurse Practitioner Family | DX: E11.69 Type 2 diabetes mellitus with other specified complication (principal); N52.1 Erectile dysfunction due to diseases classified elsewhere | CPT/HCPCS: 81003; 99212 ==

== ENCOUNTER 2024-01-16 12:58 | Outpatient (AMB) | payer MEDICAID, SELFPAY ==
[2024-01-16 13:14] VITALS: BP 143/66; PULSE 107; BMI 45.2
--- NOTE | 2024-01-16 13:14 | MHC.OFFVIS ---
Vital Signs 01/16/24 13:14 Height 5 ft 6 in Weight 279 lb 15.793 oz BMI 45.2 BP 143/66 H Blood Pressure Location Lt brachial Position Sitting Pulse 107 H Intake Visit Reasons: 1 mnth follow up Intake Note: Manjit presents in the office as a 1 month follow up. CC: HE states that he has a lot of cramps in his stomach, legs, feet and hands. He does have diarrhea every now and again - very watery stools 4 times a day. 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 Feeder Required: No Allergies cat dander (cats) Allergy (Intermediate, Verified 05/04/25 16:05) Watery Eye mold Allergy (Unknown, Verified 05/04/25 16:05) Difficulty Breathing pollen extracts Allergy (Verified 05/04/25 16:05) Unknown Medication List - Last Reconciled 01/16/24 by Kike Childress MD acetaminophen 500 mg PO Q6H PRN albuterol sulfate 90 mcg/actuation (Ventolin HFA) 2 puffs inhalation Q4-6H PRN bumetanide 2 mg (2 x 1 mg) PO DAILY 30 days calcium carbonate (Calcium Antacid) mg PO diclofenac sodium 1% 2 grams topical QID PRN flash glucose sensor (FreeStyle Monty 2 Sensor kit) USE DIRECTED. CHANGE EVERY 14 DAYS fluticasone furoate 200 mcg/actuation (Arnuity Ellipta) 1 inh inhalation DAILY fluticasone furoate-vilanterol 200-25 mcg/dose (Breo Ellipta) 1 inh inhalation DAILY gabapentin 300 mg PO TID glimepiride 2 mg PO DAILY glucose (Dex4 Glucose) 16 grams (4 x 4 gram) PO Q15M PRN 30 days insulin glargine (Lantus U-100 Insulin) 60 units (0.6 mL) subcut BEDTIME 30 days insulin lispro 10 units subcut TID lisinopril 40 mg PO DAILY magnesium oxide 400 mg PO TID metformin 1,000 mg PO BIDWM omeprazole 20 mg PO BID pravastatin 20 mg PO BEDTIME sodium chloride 0.9% 3 mL inhalation 6XD PRN spironolactone 25 mg PO DAILY tadalafil (Cialis) 5 mg PO DAILY 90 days tadalafil (Cialis) 20 mg PO .PRN PRN 90 days HPI HPI 1 mnth follow up: Details: GI clinic visit for this 53 YM with morbid obesity, severe persistent asthma, type 2 diabetes mellitus on insulin, HFpEF, depression, obstructive sleep apnea and hypertension here to review EGD results TODAY'S VISIT: Pt reports he has a lot of cramps in his stomach, legs, feet and hands. He does have diarrhea every now and again - very watery stools 4 times a day. Complains of intermittent diarrhea which comes and goes - 1-2 days per week. Has 3-5 BMs watery BMs a day on days he has the diarrhea. Unsure if any foods are causing the diarrhea. Denies association of diarrhea with milk products Notes generalized cramps - hand, feet and body and sometimes in the stomach Patient denies symptoms of heartburn, dysphagia, nausea, vomiting, change in appetite or weight. Denies recent change in bowel habits, constipation, black stools or rectal bleeding. Pt denies smoking or ETOH or Marijuana use. Patient has asthma and hypertension and denies major cardiac or problems, Pt has sleep apnea and uses a CPAP machine Denies problems with anesthesia in the past. Denies being on chronic anticoagulation. Patient denies known family history of IBD, colon polyps, colon cancer or other GI malignancies. PAST VISITS: Patient cc: abdominal bloating with diarrhea. EGD results reviewed with the patient. Noted abd pain after the procedure which resolved after 4-5 days LABS IN [facility] : Reviewed IMAGING STUDIES: Reviewed ENDOSCOPIC STUDIES: Reviewed PAST GI HISTORY BY REVIEW OF MEDICAL RECORDS: 05/2023 patient seen during hospitalization at [facility] for acute on chronic anemia: 53 YM with morbid obesity, severe persistent asthma, type 2 diabetes mellitus on insulin, HFpEF, depression, obstructive sleep apnea and hypertension seen at [facility] ED on 06/19/23 with worsening shortness of breath, associated with chest tightness, dry cough and wheezing since evening of 06/18/23. He tried breathing treatment at home without improvement of symptoms. Pt reported lower extremity edema and denied fever or chills, headache, palpitations or dizziness. Pt reports a hx of chronic heartburn with regurgitation for the past several years with increased symptoms over the past 2 months. He was previously taking Omeprazole and was switched to twice daily Famotidine due to low Magnesium levels. Patient gives a history of intermittent constipation and denies noticing any black stools or blood in the stool. He admits to taking a baby aspirin daily and denies use of NSAIDs. Denies tobacco smoking, alcohol abuse or illicit drug use. Family hx is negative for colon polyps or GI malignancy. An uncle had gastric ulcer. Pt lives with a partner and has no children. 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 In the ED, he was found to have an oxygen saturation in the 70s and was placed and was placed on a non-rebreather mask. He also was found to have tachypnea and tachycardia. Blood pressure is stable. Labs showed no leukocytosis and lactic acidosis of 2.6. Hemoglobin is 9.1 (it was 11.8 on September 2022) and no thrombocytopenia. There are no electrolyte imbalances. There is hyperglycemia, last BG is 301. Renal function is adequate. LFTS showed elevated AST and alk-phos with normal Bilirubin, ALT and albumin. Initial VBG: PH 7.31, pCO2 57 and recheck pH 7.47 and pCO2 29. CXR is negative. ED tx: Solu-Medrol 125 mg IV, albuterol 7.5 mg x 1 53 YM with morbid obesity, severe persistent asthma, type 2 diabetes mellitus on insulin, HFpEF, depression, obstructive sleep apnea and hypertension admitted to [facility] ED on 06/19/23 with worsening shortness of breath, associated with chest tightness, dry cough and wheezing and lower extremity edema. Pt reports a hx of chronic heartburn with regurgitation for the past several years with increased symptoms over the past 2 months. Labs showed hb of 9.1 (it was 11.8 on September 2022) and no thrombocytopenia. Pt has a sleep apnea and uses a CPAP machine. Acute on chronic anemia related to iron def - likely due to UGI source (erosive esophagitis, possible varices, PUD, gastritis, GAVE or UGI AVMs). Lower GI source is less likely given negative colonoscopy 3 years ago. RECOMMENDATIONS: 1. Agree with IV PPI and IV iron infusion 2. Abdominal US - order placed. 3. Proceed with EGD in the am (needs GA due BMI of > 45) ADDENDUM: ABD Us SHOWED: Heterogeneous liver echotexture and slightly irregular contour of the liver questionable for hepatocellular disease and mild cirrhotic change. No focal hepatic lesion. There is no intrahepatic biliary duct dilatation seen. No ascites. [facility] Medical History Iron deficiency anemia Cirrhosis Severe persistent allergic asthma Abnormal ECG Obesity due to excess calories Hx of pancreatitis Acid reflux Elevated alkaline phosphatase measurement Asthma Degeneration of L4-L5 intervertebral disc Diabetes Obstructive sleep apnea Surgical History Hx of cholecystectomy History of back surgery Family History Father Diabetes Hearing loss Mother CVD (cardiovascular disease) Thyroid condition Paternal Grandmother Diabetes High blood pressure Paternal Aunt Diabetes High blood pressure Sister No problems noted. Sister No problems noted. 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 Review of Systems Const All systems reviewed & are unremarkable except as noted in HPI and below Physical Exam Vital Signs: Last Vital Signs Pulse 107 H 01/16/24 13:14 BP 143/66 H 01/16/24 13:14 BMI result Body Mass Index 45.2 Const General: comfortable and no acute distress Nutritional Appearance: obese Orientation/consciousness: patient oriented x3 HEENT Head: Yes normocephalic Eyes EOM: EOMs intact bilaterally Neck Neck: Yes supple Resp Auscultation: clear to auscultation bilaterally Cardio Jugular venous distension: no JVD Rate: regular rate GI Palpation (GI): Soft to palpation Auscultation: normal bowel sounds General: Yes no CVA tenderness Back/Spine/Pelvis Back: no CVA tenderness Skin General skin exam: no rashes or lesions noted Neuro General: patient oriented x3 and moves all extremities Extrem General: Yes edema Assessment & Plan Assessment & Plan (1) Anemia: Code(s): D64.9 - Anemia, unspecified Category: Medical (2) Gallstone pancreatitis: Code(s): K85.10 - Biliary acute pancreatitis without necrosis or infection Category: Medical (3) Erosive esophagitis: Code(s): K22.10 - Ulcer of esophagus without bleeding Category: Medical (4) Elevated LFTs: Code(s): R79.89 - Other specified abnormal findings of blood chemistry Category: Medical (5) Chronic diarrhea: Code(s): K52.9 - Noninfective gastroenteritis and colitis, unspecified Category: Medical Plan 54 YM with morbid obesity, severe persistent asthma, type 2 diabetes mellitus on insulin, HFpEF, depression, obstructive sleep apnea and hypertension hospitalized at [facility] in May, with worsening shortness of breath, associated with chest tightness, dry cough and wheezing and lower extremity edema. Pt reported a hx of chronic heartburn with regurgitation for the past several years with increased symptoms over the past few months. Labs showed hb of 9.1 (it was 11.8 on September 2022) and no thrombocytopenia. Pt has a sleep apnea and uses a CPAP machine. Acute on chronic anemia related to iron def - likely due to UGI source (erosive esophagitis, possible varices, PUD, gastritis, GAVE or UGI AVMs). Lower GI source is less likely given negative colonoscopy 3 years ago. ABD US SHOWED: Heterogeneous liver echotexture and slightly irregular contour of the liver questionable for hepatocellular disease and mild cirrhotic change. No focal hepatic lesion. There is no intrahepatic biliary duct dilatation seen. No ascites. 11/2023 EGD SHOWED: ESOPHAGUS: Erosive esophagitis healed completely STOMACH: Prominent gastric folds and benign appearing antral nodules A 12-15 mm polyp with central ulceration and slow oozing - removed with a hot snare. Polypectomy site was closed with 1 hemoclip. Resected polyp passed into the distal duodenum before it could be retrieved with a Rosas net 12/26/23 Patient reports abdominal bloating with diarrhea. EGD results reviewed with the patient. Noted abd pain after the procedure which resolved after 4-5 days Patient denies symptoms of heartburn, dysphagia, nausea, vomiting, change in appetite or weight. Pt advised to check labs for evaluation of liver disease 01/16/24 Pt reports he has a lot of cramps in his stomach, legs, feet and hands. He does have diarrhea every now and again - very watery stools 4 times a day. Complains of intermittent diarrhea which comes and goes - 1-2 days per week. Has 3-5 BMs watery BMs a day on days he has the diarrhea. Pt advised to check stool studies FU in 4 months Orders: Orders Fecal Fat Qualitative 01/16/24 K52.9 - Noninfective gastroenteritis and colitis, unspecified Ova and Parasite 01/16/24 K52.9 - Noninfective gastroenteritis and colitis, unspecified CDiff Gene PCR 01/16/24 K52.9 - Noninfective gastroenteritis and colitis, unspecified Pancreatic Elastase-1 01/16/24 K52.9 - Noninfective gastroenteritis and colitis, unspecified Coding Level of Care Code Est Pt Level 4 (69025) Diagnoses Anemia D64.9 Gallstone pancreatitis K85.10 Erosive esophagitis K22.10 Elevated LFTs R79.89 Chronic diarrhea K52.9 Time Spent (min) 22
== END 2024-01-16 13:51 | disposition home or self-care (01) ==
PROVIDERS: PCP Internal Medicine Geriatric Medicine; Visit Provider Internal Medicine Gastroenterology
DX: D64.9 Anemia, unspecified (principal); K85.10 Biliary acute pancreatitis without necrosis or infection; K22.10 Ulcer of esophagus without bleeding; R79.89 Other specified abnormal findings of blood chemistry; K52.9 Noninfective gastroenteritis and colitis, unspecified
CPT/HCPCS: 99499

== ENCOUNTER → 2024-01-16 12:58 | Outpatient (BNVA) | payer MEDICAID, SELFPAY | PROVIDERS: PCP Internal Medicine Geriatric Medicine; Visit Provider Internal Medicine Gastroenterology ==

== ENCOUNTER 2024-01-20 13:22 | Outpatient (AMB) | payer MEDICAID, SELFPAY ==
[2024-01-20 13:26] VITALS: BP 168/80; PULSE 97; BMI 46.9
--- NOTE | 2024-01-20 13:26 | A.OFFVIS_ITS ---
Vital Signs 01/20/24 13:26 Height 5 ft 6 in Weight 290 lb 9.108 oz BMI 46.9 BP 168/80 H Blood Pressure Location Lt brachial Position Sitting Pulse 97 Pulse Source Pulse Oximeter Intake Visit Reasons: DM/CONFIRMED Intake Note: Patient presents today for D2MT follow up visit. Last Diabetic Eye exam: 02/2023 Last Podiatry Visit: Doesn't have one Random Glucose: 179 mg/dl HgA1c: 7.0% 01/01/24 Hog Raiser Required: No Accompanied by: Self / Same As Patient Allergies pollen extracts Allergy (Verified 01/20/24 13:41) Unknown Medication List - Last Reconciled 01/20/24 by Genia Ford PA-C acetaminophen 500 mg PO Q6H PRN albuterol sulfate 90 mcg/actuation (Ventolin HFA) 2 puffs inhalation Q4-6H PRN bumetanide 2 mg (2 x 1 mg) PO DAILY 30 days calcium carbonate (Calcium Antacid) mg PO diclofenac sodium 1% 2 grams topical QID PRN flash glucose sensor (AM TechnologyStyle Monty 2 Sensor kit) USE DIRECTED. CHANGE EVERY 14 DAYS fluticasone furoate 200 mcg/actuation (Arnuity Ellipta) 1 inh inhalation DAILY fluticasone furoate-vilanterol 200-25 mcg/dose (Breo Ellipta) 1 inh inhalation DAILY gabapentin 300 mg PO TID glimepiride 2 mg PO DAILY glucose (Dex4 Glucose) 16 grams (4 x 4 gram) PO Q15M PRN 30 days insulin glargine (Lantus U-100 Insulin) 60 units (0.6 mL) subcut BEDTIME 30 days insulin lispro 10 units subcut TID lisinopril 40 mg PO DAILY magnesium oxide 400 mg PO TID metformin 1,000 mg PO BIDWM omeprazole 20 mg PO BID pravastatin 20 mg PO BEDTIME sodium chloride 0.9% 3 mL inhalation 6XD PRN spironolactone 25 mg PO DAILY tadalafil (Cialis) 5 mg PO DAILY 90 days tadalafil (Cialis) 20 mg PO .PRN PRN 90 days HPI HPI DM/CONFIRMED: Details: Pt is a 53 y/o male who presents today for a diabetic follow up. He has a hx of htn, ED, gerd, hld, t2dm, asthma, maurizio on cpap, anemia and depression. Endo: DM- A1c is was 7. He is currently on lantus 60, lispro 10 units TID , glimepiride 2mg in am, metformin 1,000mg BID. -Intolerant to Trulicity and Ozempic due to eructation/flatulence foul, bloating. Jardiance caused UTIs. cgm- usage 70 %, avg glucose 137, GMI 6.6%, Variability 36%. Very hyperglycemic 3 %, Hyperglycemic 12 %, in range 83 %, low 2% hypoglycemia- rare, around 9 am. States he forgets to eat breakfast. hyperglycemia- after meals -He has been seeing GI for diarrhea. ? related to metformin. He is being worked up and will continue f/u with GI. -needs referral for podiatry. has neuropathy left foot following back surgery. Right foot still has sensation but is decreased. CV: Bp today in office is 168/80. He is on lisinopril 40 mg, norvasc 5 mg and spironolactone 25 mg. He did not yet take all of his bp meds. states that he has not yet taken meds. He does check bps at home and states they are normal. He is on pravastatin 20 mg. No myalgias. Last ldl was 65. [facility], [facility] Medical History HTN (hypertension) Type 2 diabetes mellitus with diabetic polyneuropathy Iron deficiency anemia Cirrhosis Severe persistent allergic asthma Foot drop, left Lumbar radiculopathy, chronic Abnormal ECG Obesity due to excess calories Hx of pancreatitis Acid reflux Elevated alkaline phosphatase measurement Asthma MAURIZIO on CPAP Morbid obesity Degeneration of L4-L5 intervertebral disc Diabetes Anemia Apnea, sleep Dyspnea on exertion Obstructive sleep apnea Surgical History Hx of cholecystectomy History of back surgery Family History Father Diabetes Hearing loss Mother CVD (cardiovascular disease) Thyroid condition Paternal Grandmother Diabetes Paternal Aunt Diabetes Sister No problems noted. Sister No problems noted. 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 Physical Exam Vital Signs: Last Vital Signs Pulse 97 01/20/24 13:26 BP 168/80 H 01/20/24 13:26 BMI result Body Mass Index 46.9 Const Orientation/consciousness: patient oriented x3 Neck Neck: Yes no lymphadenopathy Thyroid: Thyroid normal Carotids: no bruits Resp Auscultation: clear to auscultation bilaterally Cardio Rate: regular rate Rhythm: regular rhythm Heart sounds: S1 normal heart sound present and S2 normal heart sound present Peripheral pulses: dorsalis pedis present Neuro General: patient oriented x3, gait normal and no focal motor deficits Extrem Other: Monofilament sensation intact bilaterally. Vibratory sensation intact bilaterally. Skin intact. General: Yes normal to inspection Office Procedures Glucose Monitoring Details Details: see [facility] [id number] - Glucose monitoring, continuous-physician I&R Procedure code (CPT) selection complete Results Reviewed Results Reviewed: Laboratory Tests 01/01/24 14:50 Creatinine 1.16 Estimated GFR > 60 Random Glucose 158 H Hemoglobin A1c % 7.0 H Assessment & Plan Assessment & Plan (1) Type 2 diabetes mellitus with diabetic polyneuropathy: Code(s): E11.42 - Type 2 diabetes mellitus with diabetic polyneuropathy Category: Medical Qualifiers: Diabetes mellitus skilled nursing insulin use: with ad terminal makeup operator use Qualified Code(s): E11.42 - Type 2 diabetes mellitus with diabetic polyneuropathy; Z79.4 - correction (current) use of insulin Plan: has been experiencing diarrhea,? Related to metformin d/c metformin increase lantus to 35 units twice a day continue lispro 10 units three times a day with meals return 1 month for follow up to be reassessed or sooner prn (2) HTN (hypertension): Code(s): I10 - Essential (primary) hypertension Category: Medical Qualifiers: Hypertension type: primary hypertension Qualified Code(s): I10 - Essential (primary) hypertension Plan: Discussed compliance and risks associated including kidney disease, increased risk of heart attack and stroke, etc (3) Hyperlipidemia: Code(s): E78.5 - Hyperlipidemia, unspecified Category: Medical Plan: continue current plan Orders: Referrals Podiatry Referral E11.42 - Type 2 diabetes mellitus with diabetic polyneuropathy, Z79.4 - oil heaterman (current) use of insulin Medications: Changed From insulin glargine (Lantus U-100 Insulin) 60 units (0.6 mL) subcut BEDTIME 30 days 18 mL 5RF To insulin glargine (Lantus U-100 Insulin) 35 units (0.35 mL) subcut BID 30 days 21 mL 5RF Coding Level of Care Code Est Pt Level 4 (26242) Diagnoses Type 2 diabetes mellitus with diabetic polyneuropathy, with long-term current use of insulin E11.42; Z79.4 Diabetes mellitus ad terminal makeup operator insulin use: with ad terminal makeup operator use Primary hypertension I10 Hypertension type: primary hypertension Hyperlipidemia E78.5 CPT Codes Details - CPT: 01695 - Glucose monitoring, continuous-physician I&R ([id number])
[2024-01-20 13:47] LABS: Glucose, Whole Blood 179 mg/dL (60-115)
== END 2024-01-20 14:02 | disposition home or self-care (01) ==
PROVIDERS: PCP Internal Medicine Geriatric Medicine; Visit Provider Physician Assistant
DX: E11.42 Type 2 diabetes mellitus with diabetic polyneuropathy (principal); Z79.4 Long term (current) use of insulin; I10 Essential (primary) hypertension; E78.5 Hyperlipidemia, unspecified

== ENCOUNTER → 2024-01-20 13:22 | Outpatient (BNVA) | payer MEDICAID, SELFPAY | PROVIDERS: PCP Internal Medicine Geriatric Medicine; Visit Provider Physician Assistant | DX: E11.42 Type 2 diabetes mellitus with diabetic polyneuropathy (principal); I10 Essential (primary) hypertension; E78.5 Hyperlipidemia, unspecified; Z79.4 Long term (current) use of insulin | CPT/HCPCS: 82947; 99212 ==

== ENCOUNTER 2024-01-29 15:57 | Outpatient (REF) | payer MEDICAID, SELFPAY ==
[2024-01-29 17:48] LABS: Anion Gap 13 (12-20); Blood Urea Nitrogen 16 mg/dL (9-16); Calcium 9.4 mg/dL (8.4-10.2); Carbon Dioxide 26 mmol/L (22-29); Chloride 104 mmol/L (96-108); Estimated Glomerular Filt Rate 48; Glucose Random 117 mg/dL (60-115); Magnesium 1.9 mg/dL (1.6-2.6); Potassium 4.4 mmol/L (3.3-5.1); Sodium 139 mmol/L (135-145)
== END 2024-01-29 15:58 | disposition home or self-care (01) ==
LOC: HO.HHCL 15:57
PROVIDERS: Visit Provider Internal Medicine Geriatric Medicine
DX: E11.69 Type 2 diabetes mellitus with other specified complication (principal); Z79.4 Long term (current) use of insulin; R25.2 Cramp and spasm; K21.00 Gastro-esophageal reflux disease with esophagitis, without bleeding
CPT/HCPCS: 36415; 80048; 83735

== ENCOUNTER 2024-02-17 13:48 | Outpatient (AMB) | payer MEDICAID, SELFPAY ==
--- NOTE | 2024-02-17 13:48 | A.OFFVIS_ITS ---
Vital Signs 02/17/24 13:52 Height 5 ft 6 in Weight 291 lb 0.163 oz BMI 47.0 BP 140/80 H Blood Pressure Location Rt brachial Position Sitting Pulse 100 Pulse Source Pulse Oximeter Intake Visit Reasons: DM/Confirmed Intake Note: Patient presents today for [facility] follow up visit. Last Diabetic Eye exam: 02/2023 Last Podiatry Visit: Doesn't have one Most Recent HgA1c: 7.0% 01/01/2024 Random Glucose: 157 mg/dL, Today Allergy Specialist Required: No Accompanied by: Self / Same As Patient Allergies pollen extracts Allergy (Verified 02/17/24 13:50) Unknown Medication List - Last Reconciled 02/17/24 by Genia Ford PA-C acetaminophen 500 mg PO Q6H PRN albuterol sulfate 90 mcg/actuation (Ventolin HFA) 2 puffs inhalation Q4-6H PRN bumetanide 2 mg (2 x 1 mg) PO DAILY 30 days calcium carbonate (Calcium Antacid) mg PO diclofenac sodium 1% 2 grams topical QID PRN flash glucose sensor (FreeStyle Monty 2 Sensor kit) USE DIRECTED. CHANGE EVERY 14 DAYS fluticasone furoate 200 mcg/actuation (Arnuity Ellipta) 1 inh inhalation DAILY fluticasone furoate-vilanterol 200-25 mcg/dose (Breo Ellipta) 1 inh inhalation DAILY gabapentin 300 mg PO TID glimepiride 2 mg PO DAILY glucose (Dex4 Glucose) 16 grams (4 x 4 gram) PO Q15M PRN 30 days insulin glargine (Lantus U-100 Insulin) 35 units (0.35 mL) subcut BID 30 days insulin lispro 16 units subcut TID lisinopril 40 mg PO DAILY magnesium oxide 400 mg PO TID omeprazole 20 mg PO BID pravastatin 20 mg PO BEDTIME sodium chloride 0.9% 3 mL inhalation 6XD PRN spironolactone 25 mg PO DAILY tadalafil (Cialis) 5 mg PO DAILY 90 days tadalafil (Cialis) 20 mg PO .PRN PRN 90 days HPI HPI DM/Confirmed: Details: Pt is a 53 y/o male who presents today for a diabetic follow up. He has a hx of htn, ED, gerd, hld, t2dm, gallstone pancreatitis, asthma, maurizio on cpap, anemia and depression. Endo: DM- A1c is was 7. He is currently on lantus 35 units BID, lispro 16 units TID , glimepiride 2mg in am, and 1000 mg metformin daily.. -Intolerant to Trulicity and Ozempic due to eructation/flatulence foul, bloating. Jardiance caused UTIs. Metformin at higher doses caused diarrhea cgm- usage 80 %, avg glucose 150, GMI 6.9%, Variability 36%. Very hyperglycemic 4 %, Hyperglycemic 25 %, in range 67 %, low 4% hypoglycemia- He states the sensor reads low sometimes with laying on it but its not truly hypoglycemic hyperglycemia-in the evening. Does endorse that sometimes his diets are not the best. CV: Bp today in office is 140/80. He is on lisinopril 40 mg, norvasc 5 mg and spironolactone 25 mg. He is on pravastatin 20 mg. No myalgias. Last ldl was 65. [facility] Medical History HTN (hypertension) Type 2 diabetes mellitus with diabetic polyneuropathy Iron deficiency anemia Cirrhosis Severe persistent allergic asthma Foot drop, left Lumbar radiculopathy, chronic Abnormal ECG Obesity due to excess calories Hx of pancreatitis Acid reflux Elevated alkaline phosphatase measurement Asthma MAURIZIO on CPAP Morbid obesity Degeneration of L4-L5 intervertebral disc Diabetes Anemia Apnea, sleep Dyspnea on exertion Obstructive sleep apnea Surgical History Hx of cholecystectomy History of back surgery Family History Father Diabetes Hearing loss Mother CVD (cardiovascular disease) Thyroid condition Paternal Grandmother Diabetes Paternal Aunt Diabetes Sister No problems noted. Sister No problems noted. 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 Physical Exam Const Orientation/consciousness: patient oriented x3 HEENT Ears: hearing grossly normal bilaterally Neck Thyroid: Thyroid normal Lymphatic: no lymphadenopathy noted Resp Auscultation: clear to auscultation bilaterally Cardio Rate: regular rate Rhythm: regular rhythm Heart sounds: S1 normal heart sound present and S2 normal heart sound present Skin General skin exam: no rashes or lesions noted Neuro General: patient oriented x3, gait normal and no focal motor deficits Assessment & Plan Assessment & Plan (1) Type 2 diabetes mellitus with diabetic polyneuropathy: Code(s): E11.42 - Type 2 diabetes mellitus with diabetic polyneuropathy Category: Medical Qualifiers: Diabetes mellitus long-term insulin use: with long-term use Qualified Code(s): E11.42 - Type 2 diabetes mellitus with diabetic polyneuropathy; Z79.4 - halfway (current) use of insulin Plan: I will increase his Lantus to 38 units twice a day. Continue with the lispro dosing. Continue metformin 500 mg twice a day and glimepiride 2 mg daily. Follow up in 3 months. Labs prior to next appointment. He will follow up sooner if needed. Patient understands and agrees with this plan. (2) HTN (hypertension): Code(s): I10 - Essential (primary) hypertension Category: Medical Qualifiers: Hypertension type: primary hypertension Qualified Code(s): I10 - Essential (primary) hypertension Plan: Improved today. (3) Hyperlipidemia: Code(s): E78.5 - Hyperlipidemia, unspecified Category: Medical Plan: Continue current regimen. We will recheck labs. Orders: Orders Basic Metabolic Panel Today E11.42 - Type 2 diabetes mellitus with diabetic polyneuropathy, E78.5 - Hyperlipidemia, unspecified, I10 - Essential (primary) hypertension, Z79.4 - halfway (current) use of insulin B Type Natriuretic Peptide Today E11.42 - Type 2 diabetes mellitus with diabetic polyneuropathy, E78.5 - Hyperlipidemia, unspecified, I10 - Essential (p rimary) hypertension, Z79.4 - exterminator helper termite (current) use of insulin Liver Panel Today E78.5 - Hyperlipidemia, unspecified, I10 - Essential (primary) hypertension, R79.89 - Other specified abnormal findings of blood chemistry Hemoglobin A1c Today E11.42 - Type 2 diabetes mellitus with diabetic polyneuropathy, E78.5 - Hyperlipidemia, unspecified, I10 - Essential (primary) hypertension, Z79.4 - halfway (current) use of insulin Microalbumin, Random (w Creat) Today E11.42 - Type 2 diabetes mellitus with diabetic polyneuropathy, E78.5 - Hyperlipidemia, unspecified, I10 - Essential (primary) hypertension, Z79.4 - exterminator helper termite (current) use of insulin Lipid Panel Today E11.42 - Type 2 diabetes mellitus with diabetic polyneuropathy, Z79.4 - halfway (current) use of insulin Medications: New metformin ER 500 mg PO BID 180 tabs 2RF Changed From insulin lispro 16 units subcut TID To insulin lispro 10 units (0.1 mL) subcut TID 15 mL 3RF From insulin glargine (Lantus U-100 Insulin) 35 units (0.35 mL) subcut BID 30 days 21 mL 5RF To insulin glargine (Lantus U-100 Insulin) 38 units (0.38 mL) subcut BID 30 days 30 mL 5RF Coding Level of Care Code Est Pt Level 4 (04089) Complex EM visit Add On G2211 Diagnoses Type 2 diabetes mellitus with diabetic polyneuropathy, with long-term current use of insulin E11.42; Z79.4 Diabetes mellitus long-term insulin use: with exterminator helper termite use Primary hypertension I10 Hypertension type: primary hypertension Hyperlipidemia E78.5
[2024-02-17 13:52] VITALS: BP 140/80; PULSE 100; BMI 47.0
[2024-02-17 13:58] LABS: Glucose, Whole Blood 157 mg/dL (60-115)
== END 2024-02-17 14:21 | disposition home or self-care (01) ==
PROVIDERS: PCP Internal Medicine Geriatric Medicine; Visit Provider Physician Assistant
DX: E11.42 Type 2 diabetes mellitus with diabetic polyneuropathy (principal); Z79.4 Long term (current) use of insulin; I10 Essential (primary) hypertension; E78.5 Hyperlipidemia, unspecified

== ENCOUNTER → 2024-02-17 13:48 | Outpatient (BNVA) | payer MEDICAID, SELFPAY | PROVIDERS: PCP Internal Medicine Geriatric Medicine; Visit Provider Physician Assistant | DX: E11.42 Type 2 diabetes mellitus with diabetic polyneuropathy (principal); I10 Essential (primary) hypertension; E78.5 Hyperlipidemia, unspecified; Z79.4 Long term (current) use of insulin | CPT/HCPCS: 82947; 99212 ==

== ENCOUNTER 2024-02-24 13:09 | Outpatient (AMB) | payer MEDICAID, SELFPAY ==
--- NOTE | 2024-02-24 13:29 | A.OFFVIS_ITS ---
Intake Intake Visit Reasons: DM Carpenter Refrigerator Required: No Accompanied by: Self / Same As Patient Allergies pollen extracts Allergy (Verified 02/17/24 13:50) Unknown HPI Comprehensive Diabetes Asmnt Most Recent Diabetes Results: Microalb/Creat Ratio TNP 07/25/23 Cholesterol 134 mg/dL (<200) 03/20/23 HDL Cholesterol 38 mg/dL (>40) L 03/20/23 Triglycerides 159 mg/dL (<150) H 03/20/23 Creatinine 1.51 mg/dL (0.5-1.4) H 01/29/24 Blood Urea Nitrogen 16 mg/dL (9-16) 01/29/24 Sodium 139 mmol/L (135-145) 01/29/24 Potassium 4.4 mmol/L (3.3-5.1) 01/29/24 Chloride 104 mmol/L (96-108) 01/29/24 Carbon Dioxide 26 mmol/L (22-29) 01/29/24 Calcium 9.4 mg/dL (8.4-10.2) 01/29/24 AST 33 U/L (5-37) 01/01/24 ALT 27 U/L (0-40) 01/01/24 Total Protein 7.7 g/dL (6.5-8.0) 01/01/24 Albumin 4.0 g/dL (3.5-5.0) 01/01/24 [facility] Medical History HTN (hypertension) Type 2 diabetes mellitus with diabetic polyneuropathy Iron deficiency anemia Cirrhosis Severe persistent allergic asthma Foot drop, left Lumbar radiculopathy, chronic Abnormal ECG Obesity due to excess calories Hx of pancreatitis Acid reflux Elevated alkaline phosphatase measurement Asthma MAURIZIO on CPAP Morbid obesity Degeneration of L4-L5 intervertebral disc Diabetes Anemia Apnea, sleep Dyspnea on exertion Obstructive sleep apnea Surgical History Hx of cholecystectomy History of back surgery Family History Father Diabetes Hearing loss Mother CVD (cardiovascular disease) Thyroid condition Paternal Grandmother Diabetes Paternal Aunt Diabetes Sister No problems noted. Sister No problems noted. 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 1% Hyperglycemia:? 49% Time in Range:? 50% Average glucose for the last 2 weeks 180? mg/dL Patient's last A1c 01/18 7% Patient's episodes of hypoglycemia have improved, although average glucose is now running slightly above target. Patient's glucose is still high after supper, at last visit with provider his Lantus was increased to 38 units b.i.d. Patient reports he takes Humalog based on glucose levels at the time before meals, reports taking 2-3 times daily Takes between 10-16 units Patient is having downward trend of glucose overnight while he is sleeping, recommended to patient to reduce the Lantus dose to 35 units in the evening continue with 38 units in the morning In addition at supper would recommend increasing Humalog dose by 2 units. Discussed with patient how to treat hypoglycemia with rule of 15s, patient reports he treats hypoglycemia with glucose tabs Recommended the patient increase physical activity when glucose level is high after meals If patient episodes of hypoglycemia increase instructed patient to contact clinical unit educator or provider Patient able to insert sensor independently at home without issue.? Portions of this note were created using voice recognition software, please excuse any words or phrases that may have been misinterpreted. Patient Instructions: Take Lantus 38 units in morning and Lantus 35 units in the evening Add 2 units of Humalog to evening meal Follow up in 6 month with Diabetes Education Coding Level of Care Code Est Pt Level 1 (46250) Diagnoses Type 2 diabetes mellitus with diabetic polyneuropathy, with long-term current use of insulin E11.42; Z79.4 Diabetes mellitus custodial insulin use: with custodial use
== END 2024-02-24 13:39 | disposition home or self-care (01) ==
PROVIDERS: PCP Internal Medicine Geriatric Medicine; Visit Provider Registered Nurse Diabetes Educator
DX: E11.42 Type 2 diabetes mellitus with diabetic polyneuropathy (principal); Z79.4 Long term (current) use of insulin

== ENCOUNTER → 2024-02-24 13:09 | Outpatient (BNVA) | payer MEDICAID, SELFPAY | PROVIDERS: PCP Internal Medicine Geriatric Medicine; Visit Provider Registered Nurse Diabetes Educator | DX: E11.42 Type 2 diabetes mellitus with diabetic polyneuropathy (principal); Z79.4 Long term (current) use of insulin | CPT/HCPCS: 99211 ==

== ENCOUNTER 2024-03-31 14:01 | Outpatient (REF) | payer MEDICAID, SELFPAY ==
--- OUTSIDE RECORDS SUMMARY | 2024-03-31 14:10 | XMS_ITS | Encounter Summary ---
Author Organization [facility] Address [address] [place] [address] [address] [address] Care Team Providers Care Size Worker Name Role Phone Name, Beau FRANKS Primary Care Provider [phone] Bambi Jauregui Unavailable Unavailable Mechelle Dumont RN Unavailable [phone] Reason for Visit * Reason Comments Med Refill Encounter Details Date Type Department Care Team (Late st Contact Info) Description 06/11/2022 Refill [facility] MEDICINE [address], [place] [phone] NameBeau MD [address] [place] [address] Iron deficiency Social History Tobacco Use Types Packs/Day Years Used Date Smoking Tobacco: Never Assessed Sex and Gender Information Value Date Recorded Sex Assigned at Male 12/25/2021 10:14 AM EDT Legal Sex Male 10:14 AM EDT Gender Identity Male 12/25/2021 10:14 AM EDT Sexual Orientation Straight 12/25/2021 10 :14 AM EDT documented as of this encounter Plan of Treatment Not on file documented as of this encounter Visit Diagnoses Diagnosis Iron deficiency Disorders of iron metabolism documented in this encounter Care Teams Size Worker Relationship Specialty Start Date End Date Beau Stewart MD [address] [place] [address] PCP - General Family Medicine 06/01/15 Bambi Jauregui Community Health Worker 06/27/23 09/15/23 Mechelle Dumont RN [address] [place] [address] Early Childhood Special Educator 06/27/23 09/15/23 documented as of this encounter
--- OUTSIDE RECORDS SUMMARY | 2024-03-31 14:10 | XMS_ITS | Encounter Summary ---
Author Organization [facility] Address [address] [place] [address] [address] [place] [address] Care Team Providers Care Event Marketing Manager Name Role Phone NameBeau MD Primary Care Provider Bambi Jauregui Unavailable Unavailable Mechelle Dumont RN Unavailable [phone] Reason for Visit * Reason Comments Med Refill Encounter Details Date Type Department Care Team (Late st Contact Info) Description 05/28/2022 Refill [facility] MEDICINE [address] [place], [place] [phone] NameBeau MD [address] [place] [address] Asthma, unspecified asthma severity, unspecified whether complicated, unspecified whether persistent Social History Tobacco Use Types Packs/Day Years [...] as of this encounter Visit Diagnoses Diagnosis Asthma, unspecified asthma severity, unspecified whether complicated, unspecified whether persistent documented in this encounter Care Teams Event Marketing Manager Relationship Specialty Start Date End Date NameBeau MD [address] [place] [address] PCP - General Family Medicine 06/01/15 Bambi Jauregui Community Health Worker 06/27/23 09/15/23 Mechelle Dumont RN [address] [place] [id number] Hamper Maker 06/27/23 09/15/23 documented as of this encounter
--- OUTSIDE RECORDS SUMMARY | 2024-03-31 14:10 | XMS_ITS | Encounter Summary ---
Author Organization [employer] Address [address] [facility] 7[address] [place] [address] Care Team Providers Care Microsoft Developer Name Role Phone Name, Beau FRANKS Primary Care Provider [phone] Reason for Visit * Reason Comments Diabetic Eye Exam Encounter Details Date Type Department Care Team (Latest Contact Info) Description 03/05/2024 2:00 PM EST Office Visit [facility] [address] [place], [place] [phone] Gracie Brown, OD [address] [place] [address] Mild nonproliferative diabetic retinopathy of both eyes without macular edema associated with type 2 diabetes mellitus (CMS/HCC) (Primary Dx); Keratoconus of both eyes; Presbyopia of both eyes Social History Tobacco Use Types Packs/Day Years Used Date Smoking Tobacco: Never Passive Smoke Exposure: Never Smokeless Tobacco: Never Alcohol Use Standard Drinks/Week Comments Never 0 (1 standard drink = 0.6 oz pur e alcohol) Depression Answer Date Recorded Patient Health Questionnaire-9 Score 24 01/29/2024 Patient Health Questionnaire-9 Score 24 01/29/2024 Last PHQ-9: Questionnaire Data Not on file 1 03/31/2023 Housing Stability Answer Date Recorded What is your housing situati on today? I have housing today, but I am worried about losing housing in the future 01/29/[address] you li ve. Do you have problems with any of the following? Pests such as bugs, ants, or mice;Inadequate heat;Oven or stove not working;No or not working smoke detectors 01/29/2024 Food Insecurity Answer Date Recorded Within the past 12 months, y ou worried that your food would run out before you got money to buy more: Often true 12/18/2022 Within the past 12 months,th e food you bought just didn't last and you didn't have enough money to get more: Often true Transportation Answer Date Recorded In the past 12 months, has l ack of transportation kept you from medical appts, meetings, work or from getting things needed for daily living? No 12/18/2022 Utilities Answer Date Recorded In the past 12 months, has t he electric, gas, oil or water company threatened to shut off services in your home? Yes 06/27/2023 Depression Answer Date Recorded Patient Health Questionnaire-2 Score 5 01/29/2024 Internet Access Answer Date Recorded Internet Access Q1 Yes 01/29/2024 Internet Access Q2 Not on file 01/29/2024 Sex and Gender Information Value Date Recorded Sex Assigned at Male 12/25/2021 10:14 AM EDT Legal Sex Male 10:14 AM EDT Gender Identity Male 12/25/2021 10:14 AM EDT Sexual Orientation Straight 12/25/2021 10 :14 AM EDT documented as of this encounter Progress Notes * Gracie Brown, OD - 03/05/2024 2:00 PM EST Eye Care Progress Note Patient ID: Manjit May is a 54 y.o. male. Chief Complaint Diabetic Eye Exam HPI 54 yo male with history of keratoconus presents for annual diabetic eye exam. He receives contact lens care at [facility] and was evaluated and issued new contact lenses in December 2023. He reports no changes in vision and uses near spectacles over his contact lens (CL). He broke his glasses andis currently using +3.25 OTC readers. He has a history of Type 2 diabetes with last A1c 6.8 here in10/04/2023 but reports A1c of [address] [facility] 1-2 months ago. Mild non-proliferative diabetic retinopathy (NPDR) was noted both eyes (OU) at last eye exam in 07/2022. He denies all other ocular complaints. Last edited by Gracie Brown, OD on 03/05/2024 2:33 PM. Current Outpatient Medications Medication Sig Dispense Refill acetaminophen (Tylenol) 500 MG tablet Take 1 tablet (500 mg) by mouth every 6 (six) hours if neededfor mild pain for up to 20 doses. 20 tablet 0 albuterol (2.5 MG/3ML) 0.083% nebulizer solution INHALE 3 ML VIA NEBULIZER EVERY MORNING, EVERY AFTERNOON, EVERY EVENING AND EVERY NIGHT AT BEDTIME 90 mL 1 B-D ULTRAFINE III SHORT PEN 31G X 8 MM misc USE TO INJECT FOUR TIMES DAILY bumetanide (Bumex) 1 MG tablet Take 1 mg by mouth every other day. calcium carbonate (Tums) 500 MG chewable tablet Chew 1 tablet (500 mg) if needed in the morning, atnoon, in the evening, and at bedtime for indigestion or heartburn. 90 tablet 11 chlorhexidine (Peridex) 0.12 % solution Swish 15 mL morning and night for 1 minute. Spit, do not swallow. Do not eat or drink for 30 minutes following use. 473 mL 0 clindamycin (Cleocin) 300 MG capsule Take 2 tabs (600mg) 1 hour prior to dental procedure 2 capsule3 Continuous Blood Gluc Sensor (FreeStyle Monty 2 Sensor) mis DIRECTED EVERY 14 DAYS Diclofenac Sodium 1 % gel APPLY 2 GRAMS TOPICALLY TO THE AFFECTED AREA FOUR TIMES DAILY NEEDED FOR BACK PAIN 100 g 1 famotidine (Pepcid) 20 MG tablet Take 1 tablet (20 mg) by mouth 2 times daily. 60 tablet 11 ferrous sulfate 324 (65 Fe) MG EC tablet Take 1 tablet by mouth Once per day. fluticasone furoate (Arnuity Ellipta) 200 MCG/ACT inhaler Inhale 1 puff Once per day. Rinse mouth with water after use to reduce aftertaste and incidence of candidiasis. Do not swallow. 1 each 11 gabapentin (Neurontin) 300 MG capsule TAKE 1 CAPSULE(300 MG) BY MOUTH THREE TIMES DAILY 90 capsule 1 glimepiride (Amaryl) 2 MG tablet TAKE 1 TABLET BY MOUTH EVERY DAY 90 tablet 1 insulin lispro (HumaLOG) 100 UNIT/ML injection ADMINISTER 10 UNITS UNDER THE SKIN THREE TIMES DAILY ketoconazole (NIZOral) 2 % shampoo Apply topically 2 (two) times a week. 120 mL 2 Lantus 100 UNIT/ML injection ADMINISTER 80 UNITS UNDER THE SKIN DAILY lisinopril 40 MG tablet TAKE 1 TABLET BY MOUTH DAILY AFTER LUNCH 90 tablet 1 magnesium oxide (Mag-Ox) 400 MG tablet Take 1 tablet (400 mg) by mouth 3 times daily. 90 tablet 3 metFORMIN (Glucophage) 1000 MG tablet TAKE 1 TABLET BY MOUTH once a day omeprazole (PriLOSEC) [address] capsule Do not crush or chew.TAKE 1 CAPSULE(20 MG) BY MOUTH ONCE a day pravastatin (Pravachol) 20 MG tablet TAKE 1 TABLET BY MOUTH AT BEDTIME 90 tablet 1 sodium chloride 0.9 % nebulizer solution USE 1 VIAL VIA NEBULIZER FIVE TO SIX TIMES DAILY spironolactone (Aldactone) 25 MG tablet Take 1 tablet (25 mg) by mouth every other day. tadalafil (Cialis) 20 MG tablet TAKE 1 TABLET BY MOUTH 1 HOUR BEFORE SEXUAL ACTIVITY EVERY DAY NEEDED 10 tablet 2 UltiCare Insulin Syringe 30G X 5/16 1 ML misc DIRECTED ONCE A DAY 100 each 3 Ventolin HFA 108 (90 Base) MCG/ACT inhaler INHALE 2 PUFFS BY MOUTH EVERY 4 TO 6 HOURS NEEDED 18 g 1 No current facility-administered medications for this visit. Past Medical History: Diagnosis Date Arthritis Asthma Diabetes mellitus (CMS/HCC) Hypertension Sleep apnea, obstructive Past Surgical History: Procedure Laterality Date CTA CHEST W AND WO CONTRAST 06/21/2023 CTA CHEST PE PROTOCAL No family history on file. Social History Socioeconomic History Marital status: Single Spouse name: Not on file Number of children: Not on file Years of education: Not on file Highest education level: Not on file Occupational History Not on file Tobacco Use Smoking status: Never Passive exposure: Never Smokeless tobacco: Never Substance and Sexual Activity Alcohol use: Never Drug use: Never Sexual activity: Defer Other Topics Concern Not on file Social History Narrative Not on file Social Drivers of Health Food Insecurity: High Risk (12/18/2022) Food Insecurity Within the past 12 months, you worried that your food would run out before you got money to buy more:: Often true Within the past 12 months,the food you bought just didn't last and you didn't have enough money to get more: : Often true Transportation Needs: Low Risk (12/18/2022) Transportation In the past 12 months, has lack of transportation kept you from medical appts, meetings, work or from getting things needed for daily living? : No Intimate Partner Violence: Not on file Housing Stability: High Risk (01/29/2024) Housing Stability What is your housing situation today?: I have housing today, but I am worried about losing housing in the future Think about the place you live. Do you have problems with any of the following? : Pests such as bugs, ants, or mice;Inadequate heat;Oven or stove not working;No or not working smoke detectors Allergies Allergen Reactions Dulaglutide ROS Positive for: Endocrine (Type 2 diabetes), Cardiovascular (hypertension), Respiratory (asthma) Negative for: Constitutional, Gastrointestinal, Neurological, Skin, Genitourinary, Musculoskeletal,HENT, Eyes, Psychiatric, Allergic/Imm, Heme/Lymph Last edited by Gracie Brown, OD on 03/05/2024 2:32 PM. Base Eye Exam Visual Acuity (Snellen - Linear) Right Left Dist cc 20/20 20/25 -2 Near cc 20/20 2024- Correction: Contacts Tonometry ([facility] , 2:25 PM) Right Left Pressure 10 8 Pupils Pupils APD Right PERRL None Left PERRL None Visual Benedict (Counting fingers) Left Right Full Full Neuro/Psych Oriented x3: Yes Mood/Affect: Normal Dilation Both eyes: 1.0% Mydriacyl @ 2:25 PM Slit Lamp and Fundus Exam External Exam Right Left External Normal Normal Slit Lamp Exam Right Left Lids/Lashes Normal Normal Conjunctiva/Sclera White and quiet Conj folds temporally Cornea miniimal pannus inf nasally dense pannus inf temporally, inferior vascularized scar Anterior Chamber Deep and quiet Deep and quiet Iris No NVI No NVI Lens Clear Clear Scleral lens right eye (OD): well centered, clear surface with blue visibility tint Scleral lens left eye (OS): well centered, mild debris with film Fundus Exam Right Left Vitreous Clear Clear Disc No NVD No NVD C/D Ratio Vertical .2 0.15 C/D Ratio Horizontal 0.2 0.15 Macula No CSME No CSME Vessels No NVE No NVE Periphery No holes, breaks, tears 360, few heme/ma's inferior Temporal arcade No holes, breaks, tears 360, few heme/ma's inferior Temporal arcade Refraction Wearing Rx Sphere Cylinder Right +2.75 Sphere Left +3.25 Sphere Type: NVO Manifest Refraction (Over) Sphere Cylinder [place] Dist VA Add Near VA Right +0.25 -0.50 100 NI +2.75 20/20 Left +0.75 -0.50 180 NI +2.75 20/25- Patient prefers -0.50 sph over right eye (OD) with +3.25 OTC readers Final Rx Sphere Cylinder Right +2.75 Sphere Left +3.25 Sphere Type: NVO Expiration Date: 03/05/2025 Assessment/plan: Diagnoses and all orders for this visit: Mild nonproliferative diabetic retinopathy of both eyes without macular edema associated with type 2 diabetes mellitus ([facility]) Type 2 diabetes with mild nonproliferative diabetic retinopathy and without diabetic macular edema in both eyes. Patient education regarding importance of regular and timely eye evaluation as well asmaintaining good control of blood glucose and other co-morbidities. Recommend follow up with PCP asindicated. Monitor at annual eye examination or sooner if any changes in vision. 2. Keratoconus of both eyes History of keratoconus both eyes (OU) with scleral contact lens wear. Vision is stable right eye (OD), slightly reduced left eye (OS). Patient receives contact lens services at [facility]. Recommend continue contact lens (CL) care with current practitioner and follow up as indicated. 3. Presbyopia of both eyes Presbyopia in a patient with complaint of blurred near vision. Patient education regarding stable near Add and use of OTC vs mild unequal power at near. New Rx given for NVO. Monitor at annual exam or sooner if any changes in vision occur. Gracie Brown, OD 03/05/2024, 2:46 PM documented in this encounter Plan of Treatment Not on file documented as of this encounter Visit Diagnoses Diagnosis Mild nonproliferative diabetic retinopathy of both eyes without macular edema associated with type 2 diabetes mellitus ([facility])- Primary Keratoconus of both eyes Presbyopia of both eyes documented in this encounter Additional Health Concerns Assessment Noted Time PHQ-9 Depression Total Score: 24 024 3:46 PM EST documented as of this encounter Care Teams Microsoft Developer Relationship Specialty Start Date End Date Name, MD Beau [address] [place] [address] PCP - General Family Medicine 06/01/15 documented as of this encounter
--- OUTSIDE RECORDS SUMMARY | 2024-03-31 14:10 | XMS_ITS | Encounter Summary ---
Author Organization [employer] Address [address] [facility] [address] [place] [address] Care Team Providers Care Restorative Rehab Aide Name Role Phone Name, Beau FRANKS Primary Care Provider [phone] Reason for Visit * Reason Comments Toe Pain Encounter Details Date Type Department Care Team ([facility] st Contact Info) Description 03/27/2024 12:00 PM EST Office Visit [facility] [address] [place], [place] [phone] Yesica Rodriguez MD [address] [place], [place] [phone] Avulsion of toenail, initial encounter (Primary Dx) Social History Tobacco Use Types Packs/Day Years [...] AM EDT documented as of this encounter Last Filed Vital Signs Vital Sign Reading Time Taken Comments Blood Pressure 112/75 03/27/2024 11:50 AM EST Pulse 96 03/27/2024 11:50 AM EST Temperature 36.4 ??C (97.6 ??F) 03/27/2024 11:[address] Respiratory Rate 18 03/27/2024 11:50 AM EST Oxygen Saturation 97% 03/27/2024 11:50 AM EST Inhaled Oxygen Concentration - - Weight 135 kg (296 lb 9.6 oz) 03/27/2024 11:50 A M EST Height - - Body Mass Index 47.87 01/29/2024 3:04 PM EST documented in this encounter Progress Notes * Yesica Rodriguez MD - 03/27/2024 12:00 PM EST SUBJECTIVE: Manjit May is a 54 y.o. year old male who presents for [facility]/toe pain . Denies recent illness, injury, or hospitalization. Acute Concerns: Patient here for evaluation of left great toenail that came off spontaneously yesterday. He does not have any recent trauma, fever, issues with his great toe. He used to be followed by package designer whorecently and has an appointment with a new package designer next week. He does not have any nausea, toe pain or toe discharge. His last TD was on 2019 Social History Social History Narrative Not on file Patient Active Problem List Diagnosis Periodontal disease Dental caries Polyneuropathy due to type 2 diabetes mellitus (CMS/HCC) Morbid obesity (CMS/HCC) Left ventricular hypertrophy Erectile dysfunction associated with type 2 diabetes mellitus (CMS/HCC) (CMS/HCC) Diastolic dysfunction Electrocardiogram abnormal Abnormal LFTs Anemia Moderate asthma without complication History of cholecystectomy Helicobacter pylori (H. pylori) Foot pain Essential hypertension Keratoconus Lumbar post-laminectomy syndrome Obstructive sleep apnea syndrome Polyp of gallbladder Stage 3a chronic kidney disease (CKD) (CMS/HCC) Steatosis of liver Tinea pedis Vitamin D deficiency Type 2 diabetes mellitus, with long-term current use of insulin (CMS/HCC) Low magnesium level Dental abscess Dental root caries Toenail avulsion No family history on file. Review of Systems Constitutional: Negative for fever. HENT: Negative for congestion, ear pain, rhinorrhea and sore throat. Eyes: Negative for pain and discharge. Respiratory: Negative for cough and shortness of breath. Cardiovascular: Negative for chest pain. Gastrointestinal: Negative for abdominal pain, constipation, diarrhea and nausea. Endocrine: Negative for polydipsia. Genitourinary: Negative for dysuria and frequency. Musculoskeletal: Negative for arthralgias, back pain and neck pain. Neurological: Negative for dizziness, numbness and headaches. Psychiatric/Behavioral: Negative for agitation. OBJECTIVE: Vitals: 03/27/24 1150 BP: 112/75 Pulse: 96 Resp: 18 Temp: 97.6 ??F (36.4 ??C) SpO2: 97% Physical Exam Constitutional: Appearance: Normal appearance. HENT: Right Ear: Tympanic membrane and ear canal normal. Left Ear: Tympanic membrane and ear canal normal. Mouth/Throat: Mouth: Mucous membranes are moist. Pharynx: No oropharyngeal exudate or posterior oropharyngeal erythema. Eyes: Pupils: Pupils are equal, round, and reactive to light. Cardiovascular: Rate and Rhythm: Normal rate and regular rhythm. Pulses: Dorsalis pedis pulses are 2+ on the right side and 2+ on the left side. Posterior tibial pulses are 2+ on the right side and 2+ on the left side. Heart sounds: No murmur heard. Pulmonary: Breath sounds: Normal breath sounds. No wheezing. Abdominal: General: Bowel sounds are normal. Palpations: Abdomen is soft. Tenderness: There is no abdominal tenderness. Musculoskeletal: General: No tenderness. Normal range of motion. Cervical back: Normal range of motion. No tenderness. Right foot: No deformity. Left foot: No deformity. Feet: Right foot: Protective Sensation: 7 sites tested. 7 sites sensed. Skin integrity: No ulcer or fissure. Toenail Condition: Right toenails are normal. Left foot: Protective Sensation: 7 sites tested. 7 sites sensed. Skin integrity: Dry skin present. No ulcer or fissure. Toenail Condition: Left toenails are abnormally thick and long. Comments: Partial/almost complete avulsion of left great toenail, no erythema or nailbed discharge.No edema or erythema around ungueal bed. Skin: General: Skin is warm. Neurological: General: No focal deficit present. Mental Status: He is alert and oriented to person, place, and time. Psychiatric: Mood and Affect: Mood normal. Problem List Items Addressed This Visit Toenail avulsion - Primary Toenail bed was cleaned with iodine swab, apply antibiotic ointment on the bed and surrounding tissue and then dressed with sterile 2x2 then covered with sterile gauze roll. Advised to keep it until Saturday when he will see package designer, as much as possible, I gave him extra dressing supplies and antibiotic ointment. Td is uptodate. Advised to avoid water on to the dressing. Follow Up: Current Outpatient Medications on File Prior to Visit Medication Sig Dispense Refill acetaminophen (Tylenol) 500 MG tablet Take 1 tablet (500 mg) by mouth every 6 (six) hours if neededfor mild pain for up to 20 doses. 20 tablet 0 albuterol (2.5 MG/3ML) 0.083% nebulizer solution USE 3 ML VIA NEBULIZER EVERY MORNING AND EVERY AFTERNOON AND EVERY NIGHT AT BEDTIME 90 mL [...] Blood Gluc Sensor (FreeStyle Monty 2 Sensor) misc DIRECTED EVERY 14 DAYS Diclofenac Sodium 1 [...] BY MOUTH THREE TIMES DAILY 90 capsule 0 glimepiride (Amaryl) 2 MG tablet TAKE 1 TABLET BY MOUTH EVERY DAY 90 tablet 0 insulin lispro (HumaLOG) 100 UNIT/ML injection ADMINISTER 10 UNITS UNDER THE SKIN THREE TIMES DAILY ketoconazole (NIZOral) 2 % shampoo APPLY TOPICALLY 2 TIMES A WEEK 120 mL 2 Lantus 100 UNIT/ML injection [...] TO 6 HOURS NEEDED 18 g 1 [DISCONTINUED] ketoconazole (NIZOral) 2 % shampoo Apply topically 2 (two) times a week. 120 mL 2 No current facility-administered medications on file prior to visit. documented in this encounter Miscellaneous Notes * Assessment & Plan Note - Yesica Rodriguez MD - 03/27/2024 12:25 PM EST Associated Problem(s): Toenail avulsion Toenail bed was cleaned with iodine swab, apply antibiotic ointment on the bed and surrounding tissue and then dressed with sterile 2x2 then covered with sterile gauze roll. Advised to keep it until Saturday when he will see package designer, as much as possible, I gave him extra dressing supplies and antibiotic ointment. Td is uptodate. Advised to avoid water on to the dressing. documented in this encounter Plan of Treatment Not on file documented as of this encounter Visit Diagnoses Diagnosis Avulsion of toenail, initial encounter- Primary documented in this encounter Additional Health Concerns Assessment Noted Time PHQ-9 Depression Total Score: 24 024 3:46 PM EST documented as of this encounter Care Teams Restorative Rehab Aide Relationship Specialty Start Date End Date Name, MD Beau [address] [place] [address] PCP - General Family Medicine 06/01/15 documented as of this encounter
--- OUTSIDE RECORDS SUMMARY | 2024-03-31 14:10 | XMS_ITS | Encounter Summary ---
Author Organization [employer] Address [address] [facility] [address] [place] [address] Care Team Providers Care Tax Consultant Name Role Phone Name, Beau FRANKS Primary Care Provider [phone] Encounter Details Date Type Department Care Team (Latest Contact Info) Description 03/05/2024 Travel Social History Tobacco Use Types Packs/Day Years [...] documented as of this encounter Visit Diagnoses Not on filedocumented in this encounter Additional Health Concerns Assessment Noted Time PHQ-9 Depression Total Score: 24 024 3:46 PM EST documented as of this encounter Care Teams Tax Consultant Relationship Specialty Start Date End Date Name, MD Beau [address] [place] [id number] PCP - General Family Medicine 06/01/15 documented as of this encounter
--- OUTSIDE RECORDS SUMMARY | 2024-03-31 14:10 | XMS_ITS | Encounter Summary ---
Author Organization [employer] Address [address] [facility] [address] [place] [address] Care Team Providers Care Patrol Police Sergeant Name Role Phone Name, Beau FRANKS Primary Care Provider [phone] Reason for Visit * Reason Comments Med Refill Encounter Details Date Type Department Care Team ([facility] st Contact Info) Description 09/19/2023 Refill [facility] [address] [place], [place] [phone] Name, MD Beau [address] [place], [place] [phone] Erectile dysfunction, unspecified erectile dysfunction type Social History Tobacco Use Types Packs/Day Years Used Date Smoking Tobacco: Never Passive Smoke Exposure: Never Smokeless Tobacco: Never Alcohol Use Standard Drinks/Week Comments Never 0 (1 standard drink = 0.6 oz pur e alcohol) Depression Answer Date Recorded Patient Health Questionnaire-9 Score 19 12/18/2022 Patient Health Questionnaire-9 Score 19 12/18/2022 Last PHQ-9: Questionnaire Data Not on file 1 Housing Stability Answer Date Recorded What is your housing situation today? I have racielcarrie galvez 12/18/[address] you li ve. Do you have problems with any of the following? None of the above 12/18/2022 Food Insecurity Answer Date Recorded Within the [...] Answer Date Recorded Patient Health Questionnaire-2 Score 6 12/18/2022 Sex and Gender Information Value Date Recorded Sex Assigned at Male 12/25/2021 10:14 AM EDT Legal Sex Male 10:14 AM EDT Gender Identity Male 12/25/2021 10:14 AM EDT Sexual Orientation Straight 12/25/2021 10 :14 AM EDT documented as of this encounter Plan of Treatment Not on file documented as of this encounter Visit Diagnoses Diagnosis Erectile dysfunction, unspecified erectile dysfunction type documented in this encounter Additional Health Concerns Assessment Noted Time PHQ-9 Depression Total Score: 19 023 3:46 PM EDT documented as of this encounter Care Teams Patrol Police Sergeant Relationship Specialty Start Date End Date Name, MD Beau [address] [place] [address] PCP - General Family Medicine 06/01/15 documented as of this encounter
--- OUTSIDE RECORDS SUMMARY | 2024-03-31 14:10 | XMS_ITS | Encounter Summary ---
Author Organization [email or web address] Address [address] [facility] [address] [place] [address] Care Team Providers Care Perishable Fruit Inspector Name Role Phone Name, Beau FRANKS Primary Care Provider [phone] Bambi Jauregui Unavailable Unavailable Mechelle Dumont RN Unavailable [phone] Reason for Visit * Reason Comments Med Refill Encounter Details Date Type Department Care Team ([facility] st Contact Info) Description 01/31/2023 Refill [facility] [address] [place] [address] Name, MD Beau [address] [place] [address] Asthma, unspecified asthma severity, unspecified whether complicated, [...] is your housing situation today? I have raciel galvez 12/18/[address] you [...] to shut off services in your home? No 12/18/2022 Depression Answer Date Recorded Patient Health Questionnaire-2 [...] unspecified whether persistent documented in this encounter Additional Health Concerns Assessment Noted Time PHQ-9 Depression Total Score: 19 023 3:46 PM EDT documented as of this encounter Care Teams Perishable Fruit Inspector Relationship Specialty Start Date End Date Name, MD Beau [address] [place] [address] PCP - General Family Medicine 06/01/15 Bambi Jauregui Community Health Worker 06/27/23 09/15/23 Mechelle Dumont RN [address] [place] [id number] Core Machine Operator 06/27/23 09/15/23 documented as of this encounter
--- OUTSIDE RECORDS SUMMARY | 2024-03-31 14:10 | XMS_ITS | Encounter Summary ---
Author Organization [employer] Address [address] [facility] 7t [place] [address] Care Team Providers Care Public Health Advisor Name Role Phone Name, Beau FRANKS Primary Care Provider [phone] Reason for Visit * Reason Comments Med Refill Encounter Details Date Type Department Care Team ([facility] st Contact Info) Description 03/03/2024 Refill [facility] MEDICINE 230 [place], [place] [phone] Name, MD Beau 230 [place] [address] Asthma, unspecified asthma severity, unspecified whether complicated, [...] documented as of this encounter Care Teams Public Health Advisor Relationship Specialty Start Date End Date Name, MD Beau [address] [place] [address] PCP - General Family Medicine 06/01/15 documented as of this encounter
--- OUTSIDE RECORDS SUMMARY | 2024-03-31 14:10 | XMS_ITS | Encounter Summary ---
Author Organization [employer] Address [address] [facility] 7t [place] [address] Care Team Providers Care Body Engineer Name Role Phone Name, Beau FRANKS Primary Care Provider [phone] Reason for Visit * Reason Comments Med Refill Encounter Details Date Type Department Care Team ([facility] st Contact Info) Description 03/13/2024 Refill [facility] MEDICINE 230 [place], [place] [phone] Name, MD Beau 230 [place] [address] Social History Tobacco Use Types Packs/Day Years [...] documented as of this encounter Care Teams Body Engineer Relationship Specialty Start Date End Date Name, MD Beau 230 [place] [address] PCP - General Family Medicine 06/01/15 documented as of this encounter
--- OUTSIDE RECORDS SUMMARY | 2024-03-31 14:10 | XMS_ITS | Encounter Summary ---
Author Organization [employer] Address [address] [facility] 7t [place] [address] Care Team Providers Care Electrophonic Engineer Name Role Phone Name, Beua FRANKS Primary Care Provider [phone] Reason for Visit * Reason Comments Med Refill Encounter Details Date Type Department Care Team ([facility] st Contact Info) Description 03/08/2024 Refill [facility] MED & PEDS [address] [place], [place] [phone] Name, MD Beau 230 [place] [address] Polyneuropathy due to type 2 diabetes mellitus ([facility]/HCC) Social History Tobacco Use Types Packs/Day Years [...] as of this encounter Visit Diagnoses Diagnosis Polyneuropathy due to type 2 diabetes mellitus (CMS/HCC) documented in this encounter Additional Health Concerns Assessment Noted Time PHQ-9 Depression Total Score: 24 024 3:46 PM EST documented as of this encounter Care Teams Electrophonic Engineer Relationship Specialty Start Date End Date Name, MD Beau [address] [place] [address] PCP - General Family Medicine 06/01/15 documented as of this encounter
--- OUTSIDE RECORDS SUMMARY | 2024-03-31 14:10 | XMS_ITS | Encounter Summary ---
Author Organization [employer] Address [address] [facility] 7t [place] [address] Care Team Providers Care Pipe Insulator Helper Name Role Phone Name, Beau FRANKS Primary Care Provider [phone] Bambi Jauregui Unavailable Unavailable Mechelle Dumont RN Unavailable [phone] Encounter Details Date Type Department Care Team (Late st Contact Info) Description 04/08/2023 Orders Only [facility] CHC MED & PEDS [address] [place] [address] Ekaterina Pappas LPN Social History Tobacco Use Types Packs/Day Years [...] documented as of this encounter Care Teams Pipe Insulator Helper Relationship Specialty Start Date End Date Name, MD Beau [address] [place] [address] PCP - General Family Medicine 06/01/15 Bambi Jauregui Community Health Worker 06/27/23 09/15/23 Mechelle Dumont RN [address] [place] [address] Integrity Director 06/27/23 09/15/23 documented as of this encounter
--- OUTSIDE RECORDS SUMMARY | 2024-03-31 14:10 | XMS_ITS | Encounter Summary ---
Author Organization [employer] [facility] Address [address] [place] [address] 7t [place] [address] Care Team Providers Care Systems Security Analyst Name Role Phone Name, Beau FRANKS Primary Care Provider [phone] Bambi Jauregui Unavailable Unavailable Mechelle Dumont RN Unavailable [phone] Encounter Details Date Type Department Care Team ([facility] st Contact Info) Description 03/26/2022 Orders Only [facility] CHC MED & PEDS [address] [place] [address] Kindra Woodall LPN Social History Tobacco Use Types Packs/Day [...] Diagnoses Not on filedocumented in this encounter Care Teams Systems Security Analyst Relationship Specialty Start Date End Date Name, MD Beau 230 [place] [address] PCP - General Family Medicine 06/01/15 Bambi Jauregui Community Health Worker 06/27/23 09/15/23 Mechelle Dumont, IS[place]EL 505 [place] [address] Slasher Sawyer 06/27/23 09/15/23 documented as of this encounter
--- OUTSIDE RECORDS SUMMARY | 2024-03-31 14:10 | XMS_ITS | Encounter Summary ---
Author Organization [employer] Address 75 [facility] 7t [place] [address] Care Team Providers Care Craft Artist Name Role Phone Name, Beau FRANKS Primary Care Provider [phone] Reason for Visit * Reason Comments Med Refill Encounter Details Date Type Department Care Team ([facility] st Contact Info) Description 03/26/2024 Refill [facility] MEDICINE 230 [place], [place] [phone] Name, MD Beau 230 [place] [address] Seborrheic dermatitis Social History Tobacco Use Types Packs/Day Years [...] as of this encounter Visit Diagnoses Diagnosis Seborrheic dermatitis Unspecified seborrheic dermatitis documented in this encounter Additional Health Concerns Assessment Noted Time PHQ-9 Depression Total Score: 24 024 3:46 PM EST documented as of this encounter Care Teams Craft Artist Relationship Specialty Start Date End Date Name, MD Beau 230 [place] [address] PCP - General Family Medicine 06/01/15 documented as of this encounter
--- OUTSIDE RECORDS SUMMARY | 2024-03-31 14:10 | XMS_ITS | Encounter Summary ---
Author Organization [employer] Address [address] [facility] 7t [place] [address] Care Team Providers Care Founding Partner Name Role Phone Name, Beau FRANKS Primary Care Provider [phone] Bambi Jauregui Unavailable Unavailable Mechelle Dumont RN Unavailable [phone] Reason for Visit * Reason Comments Med Refill Encounter Details Date Type Department Care Team ([facility] st Contact Info) Description 06/10/2023 Refill [facility] MEDICINE 230 [place], [place] [phone] Name, MD Beau 230 [place], [place] [phone] Asthma, unspecified asthma severity, unspecified whether complicated, [...] documented as of this encounter Care Teams Founding Partner Relationship Specialty Start Date End Date Name, MD Beau 230 [place] [address] PCP - General Family Medicine 06/01/15 Bambi Jauregui Community Health Worker 06/27/23 09/15/23 Mechelle Dumont RN 505 [place] [address] Explosive Ordnance Disposal Technician 06/27/23 09/15/23 documented as of this encounter
--- OUTSIDE RECORDS SUMMARY | 2024-03-31 14:10 | XMS_ITS | Encounter Summary ---
Author Organization [employer] Address [address] [place] [address] 7t [place] [address] Care Team Providers Care Nuclear Fuels Reclamation Engineer Name Role Phone Name, Beau FRANKS Primary Care Provider [phone] Bambi Jauregui Unavailable Unavailable Mechelle Dumont RN Unavailable [phone] Reason for Visit * Reason Onset Date Comments Med Refill 08/21/2022 Encounter Details Date Type Department Care Team (Late st Contact Info) Description 08/21/2022 Telephone [facility] MEDICINE 230 [place] [address] Name, MD Beau 230 [place] [address] Med Refill Social History Tobacco Use Types Packs/Day Years Used Date Smoking Tobacco: Never Passive Smoke Exposure: Never Smokeless Tobacco: Never Alcohol Use Standard Drinks/Week Comments Never 0 (1 standard drink = 0.6 oz pur e alcohol) Sex and Gender Information Value Date Recorded Sex Assigned at Male 12/25/2021 10:14 AM EDT Legal Sex Male 10:14 AM EDT Gender Identity Male 12/25/2021 10:14 AM EDT Sexual Orientation Straight 12/25/2021 10 :14 AM EDT COVID-19 Exposure Response Date Recorded In the last 10 days, have yo u been in contact with someone who was confirmed or suspected to have Coronavirus/COVID-19? No / Unsure 08/23/2022 2:44 PM EDT documented as of this encounter Miscellaneous Notes * Telephone Encounter - Kindra Woodall LPN - 08/21/2022 4:15 PM EDT Medication pended to PCP. * Telephone Encounter - Isidra Juventino - 08/21/2022 4:11 PM EDT Tc from pt requesting medication refill for albuterol (Ventolin HFA) 108 (90 Base) MCG/ACT inhaler documented in this encounter Plan of Treatment Not on file documented as of this encounter Visit Diagnoses Not on filedocumented in this encounter Care Teams Nuclear Fuels Reclamation Engineer Relationship Specialty Start Date End Date Name, MD Beau 230 [place] [address] PCP - General Family Medicine 06/01/15 Bambi Jauregui Community Health Worker 06/27/23 09/15/23 Mechelle Dumont RN [address] [place] [address] Property Worker 06/27/23 09/15/23 documented as of this encounter
--- OUTSIDE RECORDS SUMMARY | 2024-03-31 14:10 | XMS_ITS | Encounter Summary ---
Author Organization [employer] Address 75 [facility] 7t [place] [address] Care Team Providers Care Wood Boatbuilder Name Role Phone Name, Beau FRANKS Primary Care Provider [phone] Reason for Visit * Reason Onset Date Comments mar recalls 03/03/2024 Encounter Details Date Type Department Care Team (Late st Contact Info) Description 03/03/2024 Telephone [facility] MEDICINE 230 [place], [place] [phone] Erlinda Swain MA mar recalls Social History Tobacco Use Types Packs/Day Years [...] AM EDT documented as of this encounter Miscellaneous Notes * Telephone Encounter - Erlinda Swain MA - 03/03/2024 4:18 PM EST T/C -[facility] unable to reach pt, or lvm for pt to call back so we could schedule _follow up due to voicemail being full , if pt calls back you could transfer call to [facility] , letter sent . documented in this encounter Plan of Treatment Not on file documented as of this encounter Visit Diagnoses Not on filedocumented in this encounter Additional Health Concerns Assessment Noted Time PHQ-9 Depression Total Score: 24 024 3:46 PM EST documented as of this encounter Care Teams Wood Boatbuilder Relationship Specialty Start Date End Date Name, MD Beau 230 [place] [address] PCP - General Family Medicine 06/01/15 documented as of this encounter
--- OUTSIDE RECORDS SUMMARY | 2024-03-31 14:10 | XMS_ITS | Encounter Summary ---
Author Organization [employer] Address [address] [place] [address] 7t [place] [address] Care Team Providers Care Flash Welder Name Role Phone Name, Beau FRANKS Primary Care Provider [phone] Bambi Jauregui Unavailable Unavailable Mechelle Dumont RN Unavailable [phone] Encounter Details Date Type Department Care Team (Late st Contact Info) Description 08/06/2022 Abstract [facility] MEDICINE 230 [place] [address] Name, MD Beau 230 [place] [address] Social History Tobacco Use Types Packs/Day Years [...] on file documented as of this encounter Procedures Procedure Name Priority Date/Time Associated Diagnosis Comments COLONOSCOPY Routine 06/09/2020 2:16 PM EDT documented in this encounter Results * Colonoscopy (06/09/2020 2:16 PM EDT) Colonoscopy Normal Normal Narrative Radha Aviles - 06/09/2020 2:16 PM EDT Recommended 10 year follow up ([facility]) us Historical Provider HEALTH MAINTENANCE Final Result documented in this encounter Visit Diagnoses Not on filedocumented in this encounter Care Teams Flash Welder Relationship Specialty Start Date End Date Name, MD Beau 230 [place] [address] PCP - General Family Medicine 06/01/15 Bambi Jauregui Community Health Worker 06/27/23 09/15/23 Mechelle Dumont RN 505 [place] [address] Management Engineer 06/27/23 09/15/23 documented as of this encounter
--- OUTSIDE RECORDS SUMMARY | 2024-03-31 14:10 | XMS_ITS | Encounter Summary ---
Author Organization [employer] [facility] Address [address] [place] [address] 7t [place] [address] Care Team Providers Care Dry End Operator Name Role Phone Name, Beau FRANKS Primary Care Provider [phone] Bmabi Jauregui Unavailable Unavailable Mechelle Dumont RN Unavailable [phone] Encounter Details Date Type Department Care Team (Late st Contact Info) Description 02/28/2022 Orders Only [facility] CHC MED & PEDS 505 [place] [address] Kindra Woodall LPN Social History Tobacco Use [...] on filedocumented in this encounter Care Teams Dry End Operator Relationship Specialty Start Date End Date Name, MD Beau 230 [place] [address] PCP - General Family Medicine 06/01/15 Bambi Jauregui Community Health Worker 06/27/23 09/15/23 Mechelle Dumont RN 505 [place] [address] Reservoir Engineering Manager 06/27/23 09/15/23 documented as of this encounter
--- OUTSIDE RECORDS SUMMARY | 2024-03-31 14:10 | XMS_ITS | Encounter Summary ---
Author Organization [employer] Address [address] [facility] [address] [place] [address] Care Team Providers Care Lathmaker Name Role Phone Name, Beau FRANKS Primary Care Provider [phone] Reason for Visit * Reason Onset Date Comments Med Refill 10/04/2023 Encounter Details Date Type Department Care Team ([facility] st Contact Info) Description 10/04/2023 Telephone [facility] MEDICINE 230 [place], [place] [phone] Name, MD Beau 230 [place] [address] Med Refill Social History Tobacco Use Types [...] encounter Miscellaneous Notes * Telephone Encounter - Ekaterina Pappas LPN - 10/04/2023 1:56 PM EDT Please review request medication is not pended as unclear if patient is to continue * Telephone Encounter - Michael Schaefer - 10/04/2023 1:44 PM EDT TC from pt requesting medication refill. Medications needing refill : ferrous sulfate 324 (65 Fe) MG EC tablet [id number] [place], [place] - [address] [place] [address] documented in this encounter Plan of Treatment Not on file documented as of this encounter Visit Diagnoses Not on filedocumented in this encounter Additional Health Concerns Assessment Noted Time PHQ-9 Depression Total Score: 19 023 3:46 PM EDT documented as of this encounter Care Teams Lathmaker Relationship Specialty Start Date End Date Name, MD Beau [address] [place] [address] PCP - General Family Medicine 06/01/15 documented as of this encounter
--- OUTSIDE RECORDS SUMMARY | 2024-03-31 14:10 | XMS_ITS | Encounter Summary ---
Author Organization [employer] [facility] Address [address] [place] [address] 7 [place] [address] Care Team Providers Care Record Center Coordinator Name Role Phone NameBeau MD Primary Care Provider [phone] Bambi Jauregui Unavailable Unavailable Mechelle Dumont RN Unavailable [phone] Reason for Visit * Reason Comments Med Refill Encounter Details Date Type Department Care Team (Late st Contact Info) Description 06/08/2022 Refill [facility] MEDICINE 230 [place], [place] [phone] NameBeau MD 230 [place] [address] Asthma, unspecified asthma severity, unspecified whether complicated, [...] persistent documented in this encounter Care Teams Record Center Coordinator Relationship Specialty Start Date End Date NameBeau MD 230 [place] [address] PCP - General Family Medicine 06/01/15 Bambi Jauregui Community Health Worker 06/27/23 09/15/23 Mechelle Dumont RN [address] [place] [address] Piano Bench Assembler 06/27/23 09/15/23 documented as of this encounter
--- OUTSIDE RECORDS SUMMARY | 2024-03-31 14:10 | XMS_ITS | Encounter Summary ---
Author Organization [employer] Address [address] [facility] 7t [place] [address] Care Team Providers Care Chart Reader Name Role Phone Name, Beau FRANKS Primary Care Provider [phone] Reason for Visit * Reason Comments Med Refill Encounter Details Date Type Department Care Team ([facility] st Contact Info) Description 10/04/2023 Refill [facility] MEDICINE 230 [place], [place] [phone] Name, MD Beau [address] [place] [address] Social History Tobacco Use Types Packs/Day Years [...] documented as of this encounter Care Teams Chart Reader Relationship Specialty Start Date End Date Name, MD Beau [address] [place] [address] PCP - General Family Medicine 06/01/15 documented as of this encounter
--- OUTSIDE RECORDS SUMMARY | 2024-03-31 14:10 | XMS_ITS | Encounter Summary ---
Author Organization [employer] Address 75 [facility] 7t [place] [address] Care Team Providers Care Commercial Or Institutional Cleaner Name Role Phone Name, Beau FRANKS Primary Care Provider [phone] Bambi Jauregui Unavailable Unavailable Mechelle Dumont RN Unavailable [phone] Reason for Visit * Reason Comments Med Refill Encounter Details Date Type Department Care Team ([facility] st Contact Info) Description 06/13/2023 Refill [facility] MEDICINE 230 [place], [place] [phone] Name, MD Beau 230 [place], [place] [phone] Asthma, unspecified asthma severity, unspecified whether complicated, [...] documented as of this encounter Care Teams Commercial Or Institutional Cleaner Relationship Specialty Start Date End Date Name, MD Beau [address] [place] [address] PCP - General Family Medicine 06/01/15 Bambi Jauregui Community Health Worker 06/27/23 09/15/23 Mechelle Dumont RN 505 [place] [address] Employment Interviewer 06/27/23 09/15/23 documented as of this encounter
--- OUTSIDE RECORDS SUMMARY | 2024-03-31 14:10 | XMS_ITS | Encounter Summary ---
Author Organization [employer] [facility] Address [address] [place] [address] [address] [address] Care Team Providers Care Guard Immigration Name Role Phone Name, Beau FRANKS Primary Care Provider [phone] Bambi Jauregui Unavailable Unavailable Mechelle Dumont RN Unavailable [phone] Encounter Details Date Type Department Care Team (Late st Contact Info) Description 03/02/2022 Orders Only [facility] MEDICINE [address] [place] [address] Lelia Moeller RN [address] [place] [address] Social History Tobacco Use Types Packs/Day Years [...] on filedocumented in this encounter Care Teams Guard Immigration Relationship Specialty Start Date End Date Name, MD Beau [address] [place] [address] PCP - General Family Medicine 06/01/15 Bambi Jauregui Community Health Worker 06/27/23 09/15/23 Mechelle Dumont, ISABEL [address] [place] [address] Preschool Aide 06/27/23 09/15/23 documented as of this encounter
--- OUTSIDE RECORDS SUMMARY | 2024-03-31 14:10 | XMS_ITS | Clinical Summary ---
Author Organization [facility] Address [address] [place] [address] Phone Care Team Providers Care Fish And Wildlife Warden Name Role Phone Name, Beau FRANKS Primary Care Provider [phone] Medications albuterol (2.5 MG/3ML) 0.083% nebulizer solution USE 3 ML VIA NEBULIZER FOUR TIMES DAILY 2 Active amitriptyline (ELAVIL) 10 MG tablet Take 10 mg by mouth at bed time 2 Active amLODIPine (NORVASC) 10 MG tablet Take 10 mg by mouth 1 (one) time each day 2 Active Cholecalciferol (Vitamin D3) 125 MCG (5000 UT) capsule Take 1 capsule by mouth 1 (one) time each day 2 Active Diclofenac Sodium 1 % gel APPLY 2 GRAMS TOPICALLY TO THE AFFECTED AREA FOUR TIMES DAILY NEEDED 2 Active furosemide (LASIX) 80 MG tablet Take 80 mg by mouth in the morning and 80 mg in the evening. 2 Active gabapentin (NEURONTIN) 100 MG capsule Take by mouth 1 (one) time each day 2 Active glimepiride (AMARYL) 2 MG tablet Take 2 mg by mouth 1 (one) time each day 2 Active Lantus 100 UNIT/ML injection INJECT 38 UNITS EVERY DAY 2 Active Vitron-C 65-125 MG tablet 2 Active lisinopril 40 MG tablet TAKE 1 TABLET BY MOUTH AFTER LUNCH 2 Active metFORMIN (GLUCOPHAGE) 1000 MG tablet TAKE 1 TABLET BY MOUTH TWICE DAILY WITH THE MORNING AND EVENING MEAL 2 Active omeprazole (PriLOSEC) [address] capsule 2 Active pravastatin (PRAVACHOL) 20 MG tablet Take 20 mg by mouth at bed time at bedtime 2 Active Cialis 20 MG tablet Take 20 mg by mouth 1 (one) time each day if needed 2 Active Jardiance 10 MG tablet Take by mouth 1 (one) time each day in the morning 2 Active amLODIPine (NORVASC) 5 MG tablet Take 5 mg by mouth 1 (one) time each day 2 Active Social History Tobacco Use Types Packs/Day Years Used Date Smoking Tobacco: Never Assessed Sex and Gender Information Value Date Recorded Sex Assigned at Not on file Legal Sex Male 1:41 PM EDT Gender Identity Not on file Sexual Orientation Not on file Plan of Treatment Health Maintenance Due Date Last Done Comments Pneumococcal Vaccine: Pediat rics (0 to 5 Years) and At-Risk Patients (6 to 64 Years) (1 of 2 - PCV) 01/22/1976 Hepatitis B Vaccine (1 of 3 - 19+ 3-dose series) 01/21 Colorectal Cancer Screening: Annual FOBT 2019 Colorectal Cancer Screening: Colonoscopy 2019 Colorectal Cancer Screening: Sigmoidoscopy 2019 Influenza Vaccine (#1) 2023 Insurance [place]ICAID [place] Care Teams Fish And Wildlife Warden Relationship Specialty Start Date End Date Name, MD Beau [address] [place] [address] PCP - General Internal Medicine 10/05/21
--- OUTSIDE RECORDS SUMMARY | 2024-03-31 14:10 | XMS_ITS | Encounter Summary ---
Author Organization [employer] [facility] [employer] Address [address] [facility] 7t [place] [address] Care Team Providers Care Bridge Welder Name Role Phone Name, Beau FRANKS Primary Care Provider [phone] Reason for Visit * Reason Onset Date Comments Nurse Triage 03/27/2024 Encounter Details Date Type Department Care Team ([facility] st Contact Info) Description 03/27/2024 Telephone [facility] MEDICINE 230 [place], [place] [phone] Name, MD Beau [address] [place] [address] Nurse Triage Social History Tobacco Use Types Packs/Day Years [...] encounter Miscellaneous Notes * Telephone Encounter - Tracie Johnson RN - 03/27/2024 11:34 AM EST Call returned to Manjit May to triage below. Left great big toenail appeared to be lifting. Perpt entire toe nail tore off last night. Per patient toe is black around the toe nail. Pt advised ofdisposition, Pt states is currently in front of the health center. Pt advised to come into [facility] to have area assessed but may still need to seek ER. Protocol Used: Toe Injury (Adult) Protocol-Based Disposition: See in Office or Video Visit Today Video visit offer not recorded Positive Triage Question: * Toenail is completely torn off * All higher-acuity triage questions were negative Care Advice Discussed: * Reasons To Call Back - You become worse * Telephone Encounter - Cezar Bacon - 03/27/2024 11:14 AM EST Symptom: Fingernail Symptoms Outcome: Schedule an urgent appointment (within 1 hour) or talk to a nurse or provider soon Reason: Fingernail torn off The caller accepted this outcome. documented in this encounter Plan of Treatment Not on file documented as of this encounter Visit Diagnoses Not on filedocumented in this encounter Additional Health Concerns Assessment Noted Time PHQ-9 Depression Total Score: 24 024 3:46 PM EST documented as of this encounter Care Teams Bridge Welder Relationship Specialty Start Date End Date Name, MD Beau [address] [place] [address] PCP - General Family Medicine 06/01/15 documented as of this encounter
--- OUTSIDE RECORDS SUMMARY | 2024-03-31 14:10 | XMS_ITS | Encounter Summary ---
Author Organization [facility] Address [address] [place] [address] [address] [place] [address] Care Team Providers Care Aircraft Instrument Repairer Name Role Phone Name, Beau FRANKS Primary Care Provider [phone] Bambi Jauregui Unavailable Unavailable Mechelle Dumont RN Unavailable [phone] Encounter Details Date Type Department Care Team (Late st Contact Info) Description 03/07/2022 Orders Only [facility] [address] [place] [address] Ekaterina Pappas LPN Social History Tobacco Use [...] on filedocumented in this encounter Care Teams Aircraft Instrument Repairer Relationship Specialty Start Date End Date Name, MD Beau [address] [place] [address] PCP - General Family Medicine 06/01/15 Bambi Jauregui Community Health Worker 06/27/23 09/15/23 Mechelle Dumont, ISABEL [address] [place] [address] Cigarette Machine Filler 06/27/23 09/15/23 documented as of this encounter
--- OUTSIDE RECORDS SUMMARY | 2024-03-31 14:10 | XMS_ITS | Encounter Summary ---
Author Organization [facility] [facility] Address [address] [place] [address] Care Team Providers Care Senior Engineering Specialist Name Role Phone Name, Beau FRANKS Primary Care Provider [phone] Reason for Visit * Reason Comments Med Refill Encounter Details Date Type Department Care Team ([facility] st Contact Info) Description 03/14/2024 Refill [facility] [address] [place], [place] [phone] Name, MD Beau [address] [place] [address] Asthma, unspecified asthma severity, unspecified whether complicated, [...] documented as of this encounter Care Teams Senior Engineering Specialist Relationship Specialty Start Date End Date Name, MD Beau [address] [place] [address] PCP - General Family Medicine 06/01/15 documented as of this encounter
--- OUTSIDE RECORDS SUMMARY | 2024-03-31 14:10 | XMS_ITS | Encounter Summary ---
Author Organization [facility] Address [address] [place] [address] [address] [address] Care Team Providers Care Continuous Yarn Dyeing Machine Operator Name Role Phone Name, Beau FRANKS Primary Care Provider Bambi Jauregui Unavailable Unavailable Mechelle Dumont RN Unavailable [phone] Encounter Details Date Type Department Care Team (Late st Contact Info) Description 07/02/2022 Orders Only [facility] [address] [place] [address] Ekaterina Pappas LPN Social History Tobacco Use [...] suspected to have Coronavirus/COVID-19? No / Unsure 07/03/2022 3:04 PM EDT documented as of this encounter Plan of Treatment Not on file documented as of this encounter Visit Diagnoses Not on filedocumented in this encounter Care Teams Continuous Yarn Dyeing Machine Operator Relationship Specialty Start Date End Date Name, MD Beau [address] [place] [address] PCP - General Family Medicine 06/01/15 Bambi Jauregui Community Health Worker 06/27/23 09/15/23 Mechelle Dumont RN [address] [place] [id number] Strategic Consultant 06/27/23 09/15/23 documented as of this encounter
--- OUTSIDE RECORDS SUMMARY | 2024-03-31 14:10 | XMS_ITS | Encounter Summary ---
Author Organization [facility] Address [address] [facility] [address]t [place] [address] Care Team Providers Care Food And Beverage Director Name Role Phone Name, Beau FRANKS Primary Care Provider [phone] Reason for Visit * Reason Comments Med Refill Encounter Details Date Type Department Care Team ([facility] st Contact Info) Description 10/18/2023 Refill [facility] [address] [place], [place] [phone] Chiquis Harris MD [address] [place], [place] [phone] Iron deficiency Social History Tobacco Use Types [...] of iron metabolism documented in this encounter Additional Health Concerns Assessment Noted Time PHQ-9 Depression Total Score: 19 023 3:46 PM EDT documented as of this encounter Care Teams Food And Beverage Director Relationship Specialty Start Date End Date Name, MD Beau [address] [place] [address] PCP - General Family Medicine 06/01/15 documented as of this encounter
--- OUTSIDE RECORDS SUMMARY | 2024-03-31 14:11 | XMS_ITS | Encounter Summary ---
Author Organization [employer] Address [address] [place] [address] [address] [place] [address] Care Team Providers Care Clinical Specialist Medical Device Name Role Phone Name, Beau FRANKS Primary Care Provider [phone] Bambi Jauregui Unavailable Unavailable Mechelle Dumont RN Unavailable [phone] Reason for Visit * Reason Onset Date Comments PT1 11/14/2022 Encounter Details Date Type Department Care Team ([facility] st Contact Info) Description 11/14/2022 Telephone [facility] [address] [place] [address] Name, MD Beau [address] [place] [address] PT1 Social History Tobacco Use Types Packs/Day Years [...] encounter Miscellaneous Notes * Telephone Encounter - Mechelle Lemon - 11/15/2022 10:01 AM EDT Allergy PT-1 Request Number [id number] is Pending Dr Salazar PT-1 Request Number [id number] is Pending Ortho PT-1 Request Number [id number] is Pending Pt has an active PT1 for [facility] * Telephone Encounter - Melva Nunez - 11/14/2022 3:57 PM EDT PT1 Address verified Date: 11/20/22 Time: 2 pm Visits: Address: [address] [place] [address] Facility: Allergy Injection Wheel Chair: n/a Airline Lounge Receptionist Needed: no PT1 Date: 12/05/22 Time: 11:30 am Visits: Address: [address] [place] [address] Facility: Orthopedic Wheel Chair: n/a Airline Lounge Receptionist Needed: no PT1 Date: 12/07/22 Time: 11:15 am Visits: Address: [address] [place], [place] Facility: PCP Wheel Chair: n/a Airline Lounge Receptionist Needed: no PT1 Date: 12/07/22 Time: 2:30 pm Visits: Address: [address] [place] [address] [place] [address] Facility: Dr. Salazar Wheel Chair: n/a Airline Lounge Receptionist Needed: no documented in this encounter Plan of Treatment Not on file documented as of this encounter Visit Diagnoses Not on filedocumented in this encounter Care Teams Clinical Specialist Medical Device Relationship Specialty Start Date End Date Name, MD Beau [address] [place] [address] PCP - General Family Medicine 06/01/15 Bambi Jauregui Community Health Worker 06/27/23 09/15/23 Mechelle Dumont RN [address] [place] [address] Beveling And Edging Machine Operator 06/27/23 09/15/23 documented as of this encounter
--- OUTSIDE RECORDS SUMMARY | 2024-03-31 14:11 | XMS_ITS | Clinical Summary ---
Author Organization [employer] Address [address] [place] [address] [address] [place] [address] Care Team Providers Care Electric M[employer] Name Role Phone Name, Beau FRANKS Primary Care Provider [phone] Allergies Active Allergy Reactions Criticality Noted Date Comments Dulaglutide 02/26/2017 Medications * This document contains information received from the source organization and may not represent a complete record from that organization. Continuous Blood Gluc Sensor (FreeStyle Monty 2 Sensor) misc DIRECTED EVERY 14 DAYS 11/16/19 23 Active Lantus 100 UNIT/ML injection ADMINISTER 80 UNITS UNDER THE SKIN DAILY 11/08/19 23 Active insulin lispro (HumaLOG) 100 UNIT/ML injection ADMINISTER 10 UNITS UNDER THE SKIN THREE TIMES DAILY 03/26/19 24 Active famotidine (Pepcid) 20 MG tablet Take 1 tablet (20 mg) by mouth 2 times daily. 60 tablet 04/17/19 24 025 Active UltiCare Insulin Syringe 30G X 5/16 1 ML miscIndications :Diabetes mellitus type 2 in obese DIRECTED ONCE A DAY 100 each 3 05/02/19 24 Active calcium carbonate (Tums) 500 MG chewable tablet Chew 1 tablet (500 mg) if needed in the morning, at noon, in the evening, and at bedtime for indigestion or heartburn. 90 tablet 05/16/19 24 025 Active clindamycin (Cleocin) 300 MG capsule Take 2 tabs (600mg) 1 hour prior to dental procedure 2 capsule 3 06/06/19 24 Active chlorhexidine (Peridex) 0.12 % solution Swish 15 mL morning and night for 1 minute. Spit, do not swallow. Do not eat or drink for 30 minutes following use. 473 mL 07/03/19 24 Active sodium chloride 0.9 % nebulizer solution USE 1 VIAL VIA NEBULIZER FIVE TO SIX TIMES DAILY 06/06/19 24 Active B-D ULTRAFINE III SHORT PEN 31G X 8 MM misc USE TO INJECT FOUR TIMES DAILY 06/06/19 24 Active ferrous sulfate 324 (65 Fe) MG EC tablet Take 1 tablet by mouth Once per day. 06/22/19 24 Active fluticasone furoate (Arnuity Ellipta) 200 MCG/ACT inhaler Inhale 1 puff Once per day. Rinse mouth with water after use to reduce aftertaste and incidence of candidiasis. Do not swallow. 1 each 07/12/19 24 025 Active acetaminophen (Tylenol) 500 MG tablet Take 1 tablet (500 mg) by mouth every 6 (six) hours if needed for mild pain for up to 20 doses. 20 tablet 09/27/19 24 Active bumetanide (Bumex) 1 MG tablet Take 1 mg by mouth every other day. 09/21/19 24 Active magnesium oxide (Mag-Ox) 400 MG tablet Take 1 tablet (400 mg) by mouth 3 times daily. 90 tablet 3 11/07/19 24 025 Active pravastatin (Pravachol) 20 MG tablet TAKE 1 TABLET BY MOUTH AT BEDTIME 90 tablet 1 12/10/19 24 Active tadalafil (Cialis) 20 MG tabletIndicatio ns:Erectile dysfunction, unspecified erectile dysfunction type TAKE 1 TABLET BY MOUTH 1 HOUR BEFORE SEXUAL ACTIVITY EVERY DAY NEEDED 10 tablet 2 12/13/19 24 Active lisinopril 40 MG tablet TAKE 1 TABLET BY MOUTH DAILY AFTER LUNCH 90 tablet 1 12/16/19 24 Active metFORMIN (Glucophage) 1000 MG tablet TAKE 1 TABLET BY MOUTH once a day 01/29/20 24 Active omeprazole (PriLOSEC) [address] capsule Do not crush or chew.TAKE 1 CAPSULE(20 MG) BY MOUTH ONCE a day 01/29/20 24 Active spironolactone (Aldactone) 25 MG tablet Take 1 tablet (25 mg) by mouth every other day. 01/30/20 24 025 Active Diclofenac Sodium 1 % gelIndications: Chronic pain syndrome APPLY 2 GRAMS TOPICALLY TO THE AFFECTED AREA FOUR TIMES DAILY NEEDED FOR BACK PAIN 100 g 1 02/03/20 24 Active Ventolin HFA 108 (90 Base) MCG/ACT inhalerIndicati ons:Asthma, unspecified asthma severity, unspecified whether complicated, unspecified whether persistent INHALE 2 PUFFS BY MOUTH EVERY 4 TO 6 HOURS NEEDED 18 g 1 03/03/19 25 Active gabapentin (Neurontin) 300 MG capsuleIndicati ons: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 (CMS/HCC) TAKE 1 CAPSULE(300 MG) BY MOUTH THREE TIMES DAILY 90 capsule 03/09/19 25 Active glimepiride (Amaryl) 2 MG tablet TAKE 1 TABLET BY MOUTH EVERY DAY 90 tablet 03/13/19 25 Active albuterol (2.5 MG/3ML) 0.083% nebulizer solutionIndicat ions:Asthma, unspecified asthma severity, unspecified whether complicated, unspecified whether persistent USE 3 ML VIA NEBULIZER EVERY MORNING AND EVERY AFTERNOON AND EVERY NIGHT AT BEDTIME 90 mL 1 03/17/19 25 Active ketoconazole (NIZOral) 2 % shampooIndicati ons:Seborrheic dermatitis APPLY TOPICALLY 2 TIMES A WEEK 120 mL 2 03/26/19 25 Active gabapentin (Neurontin) 300 MG capsuleIndicati ons: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 (CMS/HCC) TAKE 1 CAPSULE(300 MG) BY MOUTH THREE TIMES DAILY 90 capsule 1 09/03/19 24 025 Discontinued glimepiride (Amaryl) 2 MG tablet TAKE 1 TABLET BY MOUTH EVERY DAY 90 tablet 1 09/16/19 24 025 Discontinued ketoconazole (NIZOral) 2 % shampooIndicati ons:Seborrheic dermatitis Apply topically 2 (two) times a week. 120 mL 2 11/07/19 24 025 Discontinued albuterol (2.5 MG/3ML) 0.083% nebulizer solutionIndicat ions:Asthma, unspecified asthma severity, unspecified whether complicated, unspecified whether persistent INHALE 3 ML VIA NEBULIZER EVERY MORNING, EVERY AFTERNOON, EVERY EVENING AND EVERY NIGHT AT BEDTIME 90 mL 1 11/12/19 24 025 Discontinued Ventolin HFA 108 (90 Base) MCG/ACT inhalerIndicati ons:Asthma, unspecified asthma severity, unspecified whether complicated, unspecified whether persistent INHALE 2 PUFFS BY MOUTH EVERY 4 TO 6 HOURS NEEDED 18 g 1 02/03/20 24 025 Discontinued Active Problems Problem Noted Date Diagnosed Date Toenail avulsion 03/27/2024 Assessment & Plan (03/27/2024 12:25 PM EST): Toenail bed was cleaned with iodine swab, apply antibiotic ointment on the bed and surrounding tissue and then dressed with sterile 2x2 then covered with sterile gauze roll. 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 Td is uptodate. Advised to avoid water on to the dressing. Dental root caries 07/26/2023 Dental abscess 06/06/2023 Low magnesium level 04/17/2023 Type 2 diabetes mellitus, wi th long-term current use of insulin 01/16/2023 Polyneuropathy due to type 2 diabetes mellitus 0 11/06/2022 Left ventricular hypertrophy 11/06/2022 Helicobacter pylori (H. pylori) 11/06/2022 Overview (11/25/2022): Replace inactive dx Stage 3a chronic kidney disease (CKD) 11/06/2022 Periodontal disease 07/03/2022 Dental caries 07/03/2022 Diastolic dysfunction 05/23/2021 Electrocardiogram abnormal 05/23/2021 History of cholecystectomy 03/10/2021 Morbid obesity 04/05/2017 Erectile dysfunction associa florentino with type 2 diabetes mellitus ([facility]/HCC) 04/05/2017 Essential hypertension 09/27/2015 Obstructive sleep apnea syndrome 07/22/2013 Polyp of gallbladder 07/01/2012 Steatosis of liver 07/01/2012 Abnormal LFTs 06/17/2012 Anemia 06/17/2012 Foot pain 06/17/2012 Vitamin D deficiency 06/17/2012 Tinea pedis 11/23/2011 Lumbar post-laminectomy syndrome 09/24/2011 Moderate asthma without complication 08/08/2011 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 Encounters Date Type Department Care Team Description 03/27/2024 12:00 PM EST Office Visit [facility] [address] [place] [phone] Johnathan Rodriguez MD Avulsion of toenail, initial encounter (Primary Dx) 03/27/2024 Telephone [facility] [address] [place] [phone] Beau Stewart MD Nurse Triage 03/26/2024 Refill [facility] [address] [place] [address] Beau Stewart MD Seborrheic dermatitis 03/14/2024 Refill [facility] [address] [place] [address] Beau Stewart MD Asthma, unspecified asthma severity, unspecified whether complicated, unspecified whether persistent 03/13/2024 Refill [facility] [address] [place] [address] Beau Stewart MD 03/08/2024 Refill [facility] [address] [place], [place] [phone] Beau Stewart MD Polyneuropathy due to type 2 diabetes mellitus ([facility]/HCC) 03/05/2024 2:00 PM EST Office Visit [facility] [address] [place] [address] Gracie Brown, JADIEL Mild nonproliferative diabetic retinopathy of both eyes without macular edema associated with type 2 diabetes mellitus ([facility]/HCC) (Primary Dx); Keratoconus of both eyes; Presbyopia of both eyes 03/05/2024 Travel 03/03/2024 Telephone [facility] [address] [place] [phone] Erlinda Swain [place] feb recalls 03/03/2024 Refill [facility] [address] [place] [address] Beau Stewart MD Asthma, unspecified asthma severity, unspecified whether complicated, unspecified whether persistent 02/17/2024 Orders Only GENERIC EXTERNAL DATA DEPARTMENT Provider, Generic External Data 02/02/2024 Refill [facility] [address] [place] [address] Beau Stewart MD Asthma, unspecified asthma severity, unspecified whether complicated, unspecified whether persistent; Chronic pain syndrome 01/30/[address] [phone] She Jc, ISABEL 01/30/[address] [address] Beau Stewart MD 01/29/2024 3:15 PM EST Office Visit [address] [address] Beau Stewart MD Type 2 diabetes mellitus with other specified complication, with long-term current use of insulin ([facility]) (Primary Dx); Gastroesophageal reflux disease with esophagitis without hemorrhage; Muscle cramps; Vaccine refused by patient 01/22/[address] [address] Kamilah Portillo [place] Chart Prep 01/20/2024 Orders Only GENERIC EXTERNAL DATA DEPARTMENT Provider, Generic External Data 01/16/2024 Patient Outreach [facility] [address] [place], [place] [phone] Beau Stewart MD Pre-visit Planning (SDOH was completed on 06/27/2023) 01/01/2024 Orders Only GENERIC EXTERNAL DATA DEPARTMENT Provider, Generic External Data 01/01/[address] [address] Beau Stewart MD Asthma, unspecified asthma severity, unspecified whether complicated, unspecified whether persistent from Last 3 Months Immunizations Name Administration Dates Next Due Hep A, Adult 06/17/2012,11/23/2011 Hep B, adult 06/17/2012,11/23/2011 Influenza, IIV3, injectable 04/19/2007 Influenza, Split (incl. purified surface antigen ) 11/23/2011 Pneumococcal Polysaccharide PPSV23 01/07/1997 TD (adult), 2 Lf tetanus tox oid, preservative free, adsorbed 09/23/1996 Tdap 07/03/2021,01/02/2016 Social History Tobacco Use Types Packs/Day Years Used Date Smoking Tobacco: Never Passive Smoke Exposure: Never Smokeless Tobacco: Never Tobacco Cessation:Counseling Given: Not Answered Alcohol Use Standard Drinks/Week Comments Never 0 [...] Orientation Straight 12/25/2021 10 :14 AM EDT Last Filed Vital Signs Vital Sign Reading [...] oz) 03/27/2024 11:50 A M EST Height 167.6 cm (5' 6 ) 01/29/2024 3:04 PM EST Body Mass Index 47.87 01/29/2024 3:04 PM EST Plan of Treatment Health Maintenance Due Date Last Done Comments CT Colonography 1970 Dental Prophylaxis 1970 FIT DNA/Cologuard 1970 FIT 1970 FOBT 1970 HIV Screening 1970 Sigmoidoscopy 1970 Pneumococcal Vaccine: 50+ Years (2 of 2 - PCV) 01/07/1998 01/07/1997 Hepatitis B Vaccines (3 of 3 - 19+ 3-dose series) 08/12/2012 06/17/2012, 11/23/2011 Zoster Vaccines (1 of 2) 01/22/2020 Dental Oral Exam 01/04/2023 07/03/2022 Dental X-Ray: Bitewings 07/05/2023 07/03/2022 COVID-19 Vaccine ( season) 2023 02/23/2021, 06/06/2020, 05/09/2020 Influenza Vaccine (#1) 2023 11/23/2011, 2007 Lipid Panel 03/20/2024 03/20/2023, 1005/2020, 04/14/2020 Diabetes: Hemoglobin A1C 04/02/2024 024, 10/04/2023, 07/12/2023, Additional history exists Diabetes: Urine Protein Screening 07/24/2024 07/25/2023, 03/20/2023, 06/13/2021, Additional history exists Depression Monitoring (PHQ-9) 07/29/2024 01/29/2024, 01/29/2024 Alcohol/Substance Use Screening 01/28/2025 01/29/2024 Depression Screening 01/28/2025 01/29/2024, 01/29/20 24 SDOH Screening 01/28/2025 01/29/2024 Eye Exam 03/05/2025 03/05/2024, 0 10/2024, 03/05/2024, Additional history exists Tobacco Screening 03/05/2025 03/05/2024 Diabetes: Foot Exam 03/27/2025 03/27/2024, 03/27/2024, 03/27/2024, Additional history exists Dental X-Ray: Full Mouth 09/27/2026 09/27/2023, 05/0 10/2022 Colonoscopy 06/09/2030 06/09/2020 Colorectal Cancer Screening 06/09/2030 DTaP/Tdap/Td Vaccines (3 - Td or Tdap) 07/04/2031 07/03/2021, 01/02/2016, 09/23/1996 RSV Patients and Patients Aged 60 years or older (1 - 1-dose 75+ series) 2045 Hepatitis A Vaccines Completed 06/17/2012, 11/23/19 Hepatitis C Screening Completed 11/06/2023 HIB Vaccines Aged Out No longer eligi ble based on patient's age to complete this topic HPV Vaccines Aged Out No longer eligi ble based on patient's age to complete this topic IPV Vaccines Aged Out No longer eligi ble based on patient's age to complete this topic Meningococcal Vaccine Aged Out No linwood ralph eligible based on patient's age to complete this topic RSV under 20 months Aged Out No longe r eligible based on patient's age to complete this topic Rotavirus Vaccines Aged Out No longer eligible based on patient's age to complete this topic Procedures Procedure Name Priority Date/Time Associated Diagnosis Comments GLUCOSE, WHOLE BLOOD Routine 02/17/2024 1:55 PM EST MAGNESIUM Routine 01/29/2024 3:59 PM EST Type 2 diabetes mellitus with other specified complication, with long-term current use of insulin (CMS/HCC) Gastroesophageal reflux disease with esophagitis without hemorrhage Muscle cramps BASIC METABOLIC PANEL Routine 01/29/2024 3:59 PM EST Type 2 diabetes mellitus with other specified complication, with long-term current use of insulin (CMS/HCC) Gastroesophageal reflux disease with esophagitis without hemorrhage Muscle cramps GLUCOSE, WHOLE BLOOD Routine 01/20/2024 1:43 PM EST LIVER FIBROSIS, FIBROTEST ACTITEST PANEL Routine 01/01/2024 2:50 PM EST JOHNATHAN SCREEN, IFA, W/REFL TITER AND PATTERN Routine 01/01/2024 2:50 PM EST PSA, TOTAL Routine 01/01/2024 2:50 PM EST HEMOGLOBIN A1C Routine 01/01/2024 2:50 PM EST COMPREHENSIVE METABOLIC PANEL Routine 01/01/2024 2:50 PM EST PROTHROMBIN TIME-INR Routine 01/01/2024 2:50 PM EST CBC Routine 01/01/2024 2:50 PM EST HEPATITIS C AB W/REFL TO HCV RNA, QN, PCR Routine 11/06/2023 3:26 PM EDT Other cirrhosis of liver (CMS/HCC) PANORAMIC RADIOGRAPHIC IMAGE Routine 09/27/2023 8:00 AM EDT ALBUMIN, RANDOM URINE W/CREATININE Routine 07/25/2023 2:20 PM EDT LIPID PANEL, STANDARD Routine 03/20/2023 2:08 PM EST DIAGNOSTIC - DIAGNOSTIC IMAGING - INTRAORAL - COMPREHENSIVE SERIES OF RADIOGRAPHIC IMAGES Routine 07/03/2022 3:00 PM EDT PERIODIC ORAL EVALUATION - ESTABLISHED PATIENT Routine 07/03/2022 3:00 PM EDT HM COLONOSCOPY Routine 06/09/2020 2:16 PM EDT from Last 3 Months or Most Recently Relevant to Health Maintenance Results * (ABNORMAL) Glucose, Whole Blood (02/17/2024 1:55 PM EST) Only the most recent of2 resultswithin the time period is included. Glucose, Whole Blood 157(H) 60 - 115 mg/dL [facility] Comment:METER #: [id number] 5Testing performed in the Endocrinology Department [address] , [address], [facility]. 02/17/2024 1:55 PM EST 02/17/2024 1:58 PM EST us Generic External Data Provider LAB BLOOD ORDERAB LES Final Result Performing Organization Address [facility] Co de Phone Number [facility] [address] [place] [phone] * Magnesium (01/29/2024 3:59 PM EST) Magnesium 1.9 1.6 - 2.6 mg/dL [facility] Blood Venous blood specimen / Unknown 01/29/2024 3:59 PM EST 01/29/2024 5:33 PM EST Beau Stewart MD LAB BLOOD ORDERABLES Final Resul t Performing Organization Address [facility] de Phone Number [facility] [address] [place] [phone] * (ABNORMAL) Basic Metabolic Panel (01/29/2024 3:59 PM EST) Pathologist [facility] Sodium 139 135 - 145 mmol/L [facility] Potassium 4.4 3.3 - 5.1 mmol/L [facility] Chloride 104 96 - 108 mmol/L [facility] Carbon Dioxide 26 22 - 29 mmol/L [facility] Anion Gap 13 12 - 20 [facility] Urea Nitrogen (BUN) 16 9 - 16 mg/dL [facility] Creatinine, Serum 1.51(H) 0.5 - 1.4 mg/dL [facility] Estimated Glomerular Filt Rate 48 [facility] Comment:Chronic Kidney Disea se: Estimated GFR < 60 mL/min/1.08w9Szuxdb Kidney Disease: Estimated GFR < 15 mL/min/1.73m2 Glucose 117(H) 60 - 115 mg/dL [facility] Calcium 9.4 8.4 - 10.2 mg/dL [facility] Blood Venous blood specimen / Unknown 01/29/2024 3:59 PM EST 01/29/2024 5:33 PM EST us Beau Name LAB BLOOD ORDERABLES Final Resul t [facility] [address] [place] [address] [phone] * (ABNORMAL) Liver Fibrosis (HCV), FibroTest-ActiTest Panel (01/01/2024 2:50 PM EST) Liver Fibrosis Score 0.25 [facility] Liver Fibrosis Stage F0-F1 [facility] Liver Fibrosis Interpretation SEE NOTE [facility] Comment:no fibrosisFibro Lala t Score (f) Metavir Score f>=0 and f<=0.21 : F0 (no fibrosis)f>0.21 and f<=0.27 : F0-F1 (no fibrosis)f>0.27 and f<=0.31 : F1 (minimal fibrosis)f>0.31 and f<=0.48 : F1-F2 (minimal fibrosis)f>0.48 and f<=0.58 : F2 (moderate fibrosis)f>0.58 and f<=0.72 : F3 (advanced fibrosis)f>0.72 and f<=0.74 : F3-F4 (advanced fibrosis)f>0.74 and f<=1.00 : F4 (severe fibrosis) Nec Inflam Act Score 0.06 [facility] Nec Inflam Act Grade A0 [facility] Nec Inflam Act Interpretation SEE NOTE [facility] Comment:no activityActiTest Score (a) Metavir Score a>=0 and a<=0.17 : A0 (no activity)a>0.17 and a<=0.29 : A0-A1 (no activity)a>0.29 and a<=0.36 : A1 (minimal activity)a>0.36 and a<=0.52 : A1-A2 (minimal activity)a>0.52 and a<=0.60 : A2 (significant activity)a>0.60 and a<=0.62 : A2-A3 (significant activity)a>0.62 and a<=1.00 : A3 (severe activity) QTP-Ksali-4-Macroglo bulin 227 106 - 279 mg/dL [facility] FIB-Haptoglobin 237(A) 43 - 212 mg/dL [facility] FIB-Apolipoprotein A1 171 94 - 176 mg/dL [facility] FIB-Total Bilirubin 0.3 0.2 - 1.2 mg/dL [facility] FIB-GGT 186(A) 3 - 95 U/L [facility] FIB-ALT 18 9 - 46 U/L [facility] Reference ID [id number] [facility] Footnote SEE NOTE [facility] Comment: The reliability of results is dependent on compliance withthe preanalytical and analytical conditions recommended by[employer]. The tests have to be deferred for: acutehemolysis, acute hepatitis, acute inflammation, extrahepatic cholestasis. The advice of a specialist should besought for interpretation in chronic hemolysis and Gilbert'ssyndrome. The test interpretation is not validated in livertransplant patients. Isolated extreme values of one of thecomponents should lead to caution in interpreting theresults. In case of discordance between a biopsy result mark test, it is recommended to seek the advice of aspecialist. The causes of these discordances could be due toa flaw of the test or to a flaw in the biopsy: i.e. a liverbiopsy has a 33% variability rate for one fibrosis stage.FibroTest is interpretable for chronic hepatitis B and C,alcoholic and non alcoholic steatosis. ActiTest isinterpretable for chronic hepatitis B and C.The performance characteristics have been determined by[employer] [facility]. Ithas not been cleared or approved by the U.S. Food and DrugAdministration. Performance characteristics refer to theanalytical performance of the test.[employer], the associated logo, [employer] and all associated [employer] green are theregistered trademarks of [employer]. All third partymarks - (R) and (TM) - are the property of their respectiveowners. (C) [id number] [employer]. Allrights reserved.THIS TEST WAS PERFORMED AT:[employer] [id number] [facility] [place] ??[phone] LEVI MD,PHD,SHARMAINE 01/01/2024 2:50 PM EST 01/01/2024 2:50 PM EST us Generic External Data Provider LAB BLOOD ORDERAB LES Final Result Performing Organization Address [facility] de Phone Number [facility] [address] [place] [phone] * Prothrombin Time-INR (01/01/2024 2:50 PM EST) Prothrombin Time 12.1 10.9 - 12.4 SEC [facility] INTERNATIONAL NORM RATIO 1.0 0.9 - 1.1 [facility] Comment:INTERNATIONAL NORMAL IZED RATIO (INR) REFERENCE RANGES Reference RangeFor patients not on anticoagulant therapy: 0.9 - 1.1INR ranges for oral anticoagulanttherapy:For prevention and treatment of venous thrombosis and pulmonary embolism: 2.0 - 3.0For acute myocardial infarction with aspirin therapy: 2.0 - 3.0For acute myocardial infarction without aspirin therapy: 3.0 - 4.0For patients with mechanical prosthetic heart valves: 2.5 - 3.5 01/01/2024 2:50 PM EST 01/01/2024 2:50 PM EST us Generic External Data Provider LAB BLOOD ORDERAB LES Final Result Performing Organization Address [facility] de Phone Number [facility] [address] [place] [phone] * (ABNORMAL) CBC (01/01/2024 2:50 PM EST) White Blood Count 8.9 4.8 - 10.8 X10*3/uL [facility] Red Blood Count 4.75 4.60 - 5.80 X10*6/uL [facility] Hemoglobin 11.4(L) 14.0 - 18.0 g/dl [facility] Hematocrit 36.8(L) 42.0 - 52.0 % [facility] Mean Corpuscular Volume 77.5(L) 80.0 - 98.0 fL [facility] Mean Corpuscular Hemoglobin 24.0(L) 27.0 - 33.0 pg [facility] Mean Corpuscular HGB Conc 31.0 31.0 - 36.0 g/dl [facility] Red Cell Distribution Width 14.6 11.0 - 16.0 % [facility] Platelet Count 391 160 - 400 X10*3/uL [facility] Mean Platelet Volume 9.7 9.4 - 12.4 fL [facility] NRBC Pct Auto 0.0 0.0 - 0.2 /100WBC [facility] NRBC Abs Auto 0.000 0.0 - 0.012 X10*3/uL [facility] 01/01/2024 2:50 PM EST 01/01/2024 2:50 PM EST us Generic External Data Provider LAB BLOOD ORDERAB LES Final Result [facility] [address] [place] [address] [phone] * JOHNATHAN Screen,IFA, with Reflex to Titer and Pattern (01/01/2024 2:50 PM EST) Anti Nuclear Antibody Screen NEGATIVE NEGATIVE [facility] Comment:JOHNATHAN IFA is a first l ine screen for detecting thepresence of up to approximately 150 autoantibodies invarious autoimmune diseases. A negative JOHNATHAN IFA resultsuggests an JOHNATHAN-associated autoimmune disease is notpresent at this time, but is not definitive. If thereis high clinical suspicion for Sjogren's syndrome,testing for anti-SS-A/Ro antibody should be considered.Anti-Erika-1 antibody should be considered for clinicallysuspected inflammatory myopathies.AC-0: NegativeInternational Consensus on JOHNATHAN Patterns(https://doi.org/10.1515/auoo-1287-6933)For additional information, please refer tohttp://education.[employer]/faq/ARW730(This link is being provided for informational/educational purposes only.)THIS TEST WAS PERFORMED AT:[facility] [address] [place] [phone] REA MD JOHNATHAN Titer TNP [facility] JOHNATHAN Pattern TNP [facility] JOHNATHAN TITER 2 (REF LAB) [facility] 2 [facility] TITER 3 [facility]AN PATTERN 3 [facility] 01/01/2024 2:50 PM EST 01/01/2024 2:50 PM EST Generic External Data Provider LAB BLOOD ORDERAB LES Final Result Performing Organization Address [facility]/ZIP Co de Phone Number [facility] [address] [place] [phone] * PSA,Total (01/01/2024 2:50 PM EST) Prostate Specific Antigen 0.35 <0.05 - 4.0 ng/mL [facility] Comment:PSA methodology: Abb michelle Aliabenaty i ChemiluminescentMicroparticle Immunoassay (CMIA) 01/01/2024 2:50 PM EST 01/01/2024 2:50 PM EST us Generic External Data Provider LAB BLOOD ORDERAB LES Final Result Performing Organization Address City/[facility]/ZIP Co de Phone Number [facility] [address] [place] [phone] * (ABNORMAL) Hemoglobin A1c (01/01/2024 2:50 PM EST) Hemoglobin A1c 7.0(H) <6.0 % [facility] Comment:Hemoglobin A1C Refer ence Range Adults: 4.8 - 6.0 % Non diabetic: < 6.0 % Goal: < 7.0 %Additional Action Suggested: > 8.0 %Note: Hemoglobin A1c results are invalid for patients with abnormal amounts of HbF. Blood transfusions may impact the HbA1c concentration in the patient sample. Estimated Average Glucose 154 mg/dL [facility] Comment:eAG = Estimated ave rage glucose which is %A1C expressed asaverage glucose, using the formula of the H0J-EzrgmkxJlubhfr Glucose study (ADAG), Diabetes Care, Vol.31,#8,Sep. 2007 01/01/2024 2:50 PM EST 01/01/2024 2:50 PM EST Generic External Data Provider LAB BLOOD ORDERAB LES Final Result Performing Organization Address [facility] Co de Phone Number [facility] [address] [place] [phone] * Hepatitis C Antibody with Reflex to HCV, RNA, Quantitative, Real-Time PCR (11/06/2023 3:26 PM EDT) Hepatitis C Antibody Nonreactive Nonreactive [facility] Comment:Antibodies to HCV no t detected; does not exclude early acuteHCV infection. Blood Venous blood specimen / Unknown 11/06/2023 3:26 PM EDT 11/06/2023 3:58 PM EDT Beau Stewart MD LAB BLOOD ORDERABLES Final Resul t Performing Organization Address [facility] de Phone Number [facility] [address] [place] [phone] * Albumin, Random Urine W/Creatinine (07/25/2023 2:20 PM EDT) Creatinine, Urine 18.16 mg/dL [facility] Microalbumin Urine <5.0 mg/L [facility] Microalbum Creatinine Ratio Ur TNP <30 ug/mg cr [facility] Comment:Unable to calculate albumin/creatinine ratio due to lowmicroalbumin or creatinine result. 07/25/2023 2:20 PM EDT 07/25/2023 4:07 PM EDT Generic External Data Provider LAB URINE ORDERAB LES Final Result Performing Organization Address [facility] Co de Phone Number [facility] [address] [place] [address] [phone] * (ABNORMAL) Lipid Panel, Standard (03/20/2023 2:08 PM EST) Triglycerides 159(H) <150 mg/dL [facility] Comment:Desirable Triglyceri de: less than 150 mg/dLBorderline High Triglyceride 150-199 mg/dLHigh Triglyceride: 200-499 mg/dLVery High Triglyceride: greater than or equal to 5OO mg/dL Cholesterol 134 <200 mg/dL [facility] Comment:Desirable Cholestero l: less than 200 mg/dLBorderline High Cholesterol: 200-239 mg/dLHigh Cholesterol: greater than 239 mg/dL LDL Cholesterol Calculated 65 <100 mg/dL [facility] Comment:Desirable LDL: less than 100 mg/dLNear Optimal/Above Optimal LDL: 110- 129 mg/dLBorderline High LDL: 130-159 mg/dLHigh LDL: 160-189 mg/dLVery High LDL: greater than or equal to 190 mg/dL HDL Cholesterol 38(L) >40 mg/dL [facility] Comment:Desirable HDL: great er than 40 mg/dL Note: This HDL assay may give artificially low results in patients with liver disease. 03/20/2023 2:08 PM EST 03/20/2023 2:09 PM EST us Generic External Data Provider LAB BLOOD ORDERAB LES Final Result Performing Organization Address [facility]/ZIP Co de Phone Number [facility] [address] [place] [address] [phone] * Hm Colonoscopy (06/09/2020 2:16 PM EDT) Colonoscopy Normal Normal Narrative Radha Aviles - 06/09/2020 2:16 PM EDT Recommended 10 year follow up ([facility]) Historical Provider HEALTH MAINTENANCE Final Result from Last 3 Months or Most Recently Relevant to Health Maintenance [place] [facility] STAND ADULT Care Teams Electric Meter Tester Shop Relationship Specialty Start Date End Date Name, MD Beau [address] [place] [address] PCP - General Family Medicine 06/01/15
--- OUTSIDE RECORDS SUMMARY | 2024-03-31 14:11 | XMS_ITS | Encounter Summary ---
Author Organization [employer] Address [address] [facility] 7t [place] [address] Care Team Providers Care Contract Administration Manager Name Role Phone Name, Beau FRANKS Primary Care Provider [phone] Bambi Jauregui Unavailable Unavailable Mechelle Dumont RN Unavailable Reason for Visit * Reason Comments Med Refill Encounter Details Date Type Department Care Team ([facility] st Contact Info) Description 02/21/2023 Refill [facility] MEDICINE [address] [place], [place] [phone] Name, MD Beau [address] [place] [address] Chronic pain syndrome Social History Tobacco Use Types Packs/Day Years [...] your housing situation today? I have raciel lenny 12/18/[address] you li [...] as of this encounter Visit Diagnoses Diagnosis Chronic pain syndrome documented in this encounter Additional Health Concerns Assessment Noted Time PHQ-9 Depression Total Score: 19 023 3:46 PM EDT documented as of this encounter Care Teams Contract Administration Manager Relationship Specialty Start Date End Date Name, MD Beau [address] [place] [address] PCP - General Family Medicine 06/01/15 Bambi Jauregui Community Health Worker 06/27/23 09/15/23 Mechelle Dumont, ISABEL [address] [place] [address] Executive Secretary Social Welfare 06/27/23 09/15/23 documented as of this encounter
[2024-03-31 14:57] LABS: Anion Gap 17 (12-20); Blood Urea Nitrogen 18 mg/dL (9-16); Carbon Dioxide 25 mmol/L (22-29); Chloride 100 mmol/L (96-108); Estimated Glomerular Filt Rate 57; Sodium 138 mmol/L (135-145)
== END 2024-03-31 14:02 | disposition home or self-care (01) ==
LOC: HO.LAB 14:01
PROVIDERS: PCP Internal Medicine Geriatric Medicine; Visit Provider Internal Medicine Nephrology
DX: R60.0 Localized edema (principal)
CPT/HCPCS: 36415; 80051; 82565; 84520

== ENCOUNTER 2024-04-03 11:13 | Outpatient (AMB) | payer MEDICAID, SELFPAY ==
--- NOTE | 2024-04-03 11:24 | HO.NEPHOV ---
Vital Signs 04/03/24 11:27 Height 5 ft 6 in Weight 298 lb 2 oz BMI 48.1 BP 140/70 H Blood Pressure Location Lt brachial Position Sitting Pulse 114 H Pulse Source Pulse Oximeter Pulse Oximetry (%) 95 Oxygen Delivery Method Room Air Intake Visit Reasons: Edema-Conf Tray Drier Required: No Accompanied by: Self / Same As Patient Allergies pollen extracts Allergy (Verified 04/03/24 11:27) Unknown HPI Comments Details: Manjit was seen in follow up for management of his edema and CKD 3 as well as hypertension. He has a BMI of 47 with hypertension, diabetes as well as sleep apnea among other medical issues. His serum albumin is 3.8 and Pro BNP is normal. He is not known to have any proteinuria. His Echocardiogram has been good. He denies excess sodium in the diet. His urine output is good. He claims to be compliant with his CPAP. He denies any chest pain, worsening shortness of breath, weight gain, urinary symptoms. He denies taking excessive nonsteroidal anti-inflammatories. His current diuretics are helping him with his lower extremity swelling [facility], [facility] Medical History HTN (hypertension) Type 2 diabetes mellitus with diabetic polyneuropathy Iron deficiency anemia Cirrhosis Severe persistent allergic asthma Foot drop, left Lumbar radiculopathy, chronic Abnormal ECG Obesity due to excess calories Hx of pancreatitis Acid reflux Elevated alkaline phosphatase measurement Asthma MAURIZIO on CPAP Morbid obesity Degeneration of L4-L5 intervertebral disc Diabetes Anemia Apnea, sleep Dyspnea on exertion Obstructive sleep apnea Surgical History Hx of cholecystectomy History of back surgery Family History Father Diabetes Hearing loss Mother CVD (cardiovascular disease) Thyroid condition Paternal Grandmother Diabetes Paternal Aunt Diabetes Sister No problems noted. Sister No problems noted. 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 Review of Systems Const All systems reviewed & are unremarkable except as noted in HPI and below Physical Exam Vital Signs: Last Vital Signs Pulse 114 H 04/03/24 11:27 BP 140/70 H 04/03/24 11:27 Pulse Ox 95 04/03/24 11:27 Oxygen Delivery Method Room Air 04/03/24 11:27 BMI result Body Mass Index 48.1 Const General: comfortable and no acute distress Orientation/consciousness: patient oriented x3 HEENT Head: Yes normocephalic Mouth: Normal oral and palatal mucosa present Eyes EOM: EOMs intact bilaterally Neck Neck: Yes supple Resp Auscultation: clear to auscultation bilaterally Cardio Jugular venous distension: no JVD Rate: regular rate GI Palpation (GI): Soft to palpation Auscultation: normal bowel sounds General: Yes no CVA tenderness Back/Spine/Pelvis Back: no CVA tenderness Skin General skin exam: no rashes or lesions noted Neuro General: patient oriented x3 and moves all extremities Results Reviewed Nephrology Results: Sodium 138 mmol/L (135-145) 03/31/24 Potassium 4.0 mmol/L (3.3-5.1) 03/31/24 Chloride 100 mmol/L (96-108) 03/31/24 Carbon Dioxide 25 mmol/L (22-29) 03/31/24 BUN 18 mg/dL (9-16) H 03/31/24 Creatinine 1.31 mg/dL (0.5-1.4) 03/31/24 Calcium 9.4 mg/dL (8.4-10.2) 01/29/24 Assessment & Plan Assessment & Plan (1) HTN (hypertension): Code(s): I10 - Essential (primary) hypertension Category: Medical Qualifiers: Hypertension type: primary hypertension Qualified Code(s): I10 - Essential (primary) hypertension (2) Edema: Code(s): R60.9 - Edema, unspecified Category: Medical Qualifiers: Edema type: localized Qualified Code(s): R60.0 - Localized edema (3) CKD stage 3a, GFR 45-59 ml/min: Code(s): N18.31 - Chronic kidney disease, stage 3a Category: Medical Plan Manjit has edema most likely due to multifactorial etiology. His Echocardiogram was OK. He is not known to have any proteinuria. His serum albumin was 3.8. His Pro BNP is normal. I reviewed his abdominal USS. His iron studies have been fine. He is on spironolactone. He can continue on bumetanide 2 mg daily. I ordered uric acid. He is a candidate for Jardiance. He should minimize sodium in the diet and should get medical help to lose weight. He should avoid nonsteroidal anti-inflammatories. Answered all questions Orders: Orders Creatinine 1 Month I10 - Essential (primary) hypertension, N18.31 - Chronic kidney disease, stage 3a, R60.0 - Localized edema Blood Urea Nitrogen 1 Month I10 - Essential (primary) hypertension, N18.31 - Chronic kidney disease, stage 3a, R60.0 - Localized edema Electrolytes 1 Month I10 - Essential (primary) hypertension, N18.31 - Chronic kidney disease, stage 3a, R60.0 - Localized edema Uric Acid 1 Month I10 - Essential (primary) hypertension, N18.31 - Chronic kidney disease, stage 3a, R60.0 - Localized edema Coding Level of Care Code Est Pt Level 4 (52221) Diagnoses Primary hypertension I10 Hypertension type: primary hypertension Localized edema R60.0 Edema type: localized CKD stage 3a, GFR 45-59 ml/min N18.31
[2024-04-03 11:27] VITALS: BP 140/70; PULSE 114; O2SAT 95; BMI 48.1
--- OUTSIDE RECORDS SUMMARY | 2024-04-03 12:14 | XMS_ITS | Encounter Summary ---
Author Organization [employer] Address [address] [facility] 7[address] [place] [address] Care Team Providers Care Curatorial Assistant Name Role Phone Name, Beau FRANKS Primary Care Provider [phone] Bambi Jauregui Unavailable Unavailable Mechelle Dumont RN Unavailable [phone] Reason for Visit * Reason Comments Med Refill Encounter Details Date Type Department Care Team ([facility] st Contact Info) Description 02/21/2023 Refill [facility] MEDICINE [address] [place] [address] Name, MD Beau [address] [place] [address] Chronic pain syndrome Social History Tobacco Use [...] documented as of this encounter Care Teams Curatorial Assistant Relationship Specialty Start Date End Date Name, MD Beau [address] [place] [address] PCP - General Family Medicine 06/01/15 Bambi Jauregui Community Health Worker 06/27/23 09/15/23 Mechelle Dumont, ISABEL [address] [place] [address] Hat Lacer 06/27/23 09/15/23 documented as of this encounter
--- OUTSIDE RECORDS SUMMARY | 2024-04-03 12:14 | XMS_ITS | Encounter Summary ---
Author Organization [employer] [facility] Address [address] [place] [address] [address] [place] [address] Care Team Providers Care Film Casting Operator Name Role Phone Name, Beau FRANKS Primary Care Provider [phone] Bambi Jauregui Unavailable Unavailable Mechelle Dumont RN Unavailable Encounter Details Date Type Department Care Team (Late st Contact Info) Description 07/02/2022 Orders Only [facility] MEDICINE [address] [place] [address] Ekaterina Pappas LPN Social History Tobacco Use [...] on filedocumented in this encounter Care Teams Film Casting Operator Relationship Specialty Start Date End Date Name, MD Beau [address] [place] [address] PCP - General Family Medicine 06/01/15 Bambi Jauregui Community Health Worker 06/27/23 09/15/23 Mechelle Dumont RN [address] [place] [address] Sales Management Intern 06/27/23 09/15/23 documented as of this encounter
--- OUTSIDE RECORDS SUMMARY | 2024-04-03 12:14 | XMS_ITS | Encounter Summary ---
Author Organization [employer] Address [address] [facility] 7t [place] [address] Care Team Providers Care Certified Novell Administrator Name Role Phone Name, Beau FRANKS Primary Care Provider [phone] Reason for Visit * Reason Comments Med Refill Encounter Details Date Type Department Care Team ([facility] st Contact Info) Description 03/08/2024 Refill [facility] [address] [place], [place] [phone] Name, MD Beau [address] [place] [address] Polyneuropathy due to type 2 diabetes mellitus ([facility]/HCC) Social History Tobacco Use Types Packs/Day [...] documented as of this encounter Care Teams Certified Novell Administrator Relationship Specialty Start Date End Date Name, MD Beau [address] [place] [address] PCP - General Family Medicine 06/01/15 documented as of this encounter
--- OUTSIDE RECORDS SUMMARY | 2024-04-03 12:14 | XMS_ITS | Encounter Summary ---
Author Organization [employer] [facility] Address [address] [place] [address] [address] [place] [address] Care Team Providers Care Critical Care Technician Name Role Phone Name, Beau FRANKS Primary Care Provider [phone] Bambi Jauregui Unavailable Unavailable Mechelle Dumont RN Unavailable [phone] Encounter Details Date Type Department Care Team (Late st Contact Info) Description 03/07/2022 Orders Only [facility] MEDICINE [address] [place] [address] Ekaterina Pappas LPN Social History Tobacco Use [...] on filedocumented in this encounter Care Teams Critical Care Technician Relationship Specialty Start Date End Date Name, MD Beau [address] [place] [address] PCP - General Family Medicine 06/01/15 Bambi Jauregui Community Health Worker 06/27/23 09/15/23 Mechelle Dumont, ISABEL [address] [place] [address] Drier Operator Helper 06/27/23 09/15/23 documented as of this encounter
--- OUTSIDE RECORDS SUMMARY | 2024-04-03 12:14 | XMS_ITS | Encounter Summary ---
Author Organization [email or web address] Address [address] [facility] 7t [place] [address] Care Team Providers Care Heel Layer Name Role Phone Name, Beau FRANKS Primary Care Provider [phone] Reason for Visit * Reason Onset Date Comments Nurse Triage 03/27/2024 Encounter Details Date Type Department Care Team ([facility] st Contact Info) Description 03/27/2024 Telephone [facility] MEDICINE [address] [place], [place] [phone] Name, MD Beau [address] [place] [address] Nurse Triage Social History Tobacco Use Types [...] health center. Pt advised to come into [facility] to have area assessed but may still [...] documented as of this encounter Care Teams Heel Layer Relationship Specialty Start Date End Date Name, MD Beau [address] [place] [address] PCP - General Family Medicine 06/01/15 documented as of this encounter
--- OUTSIDE RECORDS SUMMARY | 2024-04-03 12:14 | XMS_ITS | Clinical Summary ---
Author Organization [employer] Address [address] [place] [address] 7t [place] [address] Care Team Providers Care Weight Training Instructor Name Role Phone Name, Beau FRANKS Primary Care Provider [phone] Allergies Active Allergy Reactions Criticality Noted Date [...] MOUTH once a day 01/29/20 24 Active spironolactone (Aldactone) [...] WEEK 120 mL 2 03/26/19 25 Active omeprazole (PriLOSEC) [address] capsule TAKE 1 CAPSULE(20 MG) BY MOUTH TWICE DAILY 180 capsule 1 04/02/19 25 Active gabapentin (Neurontin) 300 MG capsuleIndicati [...] 90 mL 1 11/12/19 24 025 Discontinued omeprazole (PriLOSEC) [address] capsule Do not crush or chew.TAKE 1 CAPSULE(20 MG) BY MOUTH ONCE a day 01/29/20 24 025 Discontinued Active Problems Problem Noted Date Diagnosed Date Toenail avulsion 03/27/2024 Assessment & Plan (03/27/2024 12:25 PM EST): Toenail bed was cleaned with iodine swab, apply antibiotic ointment on the bed and surrounding tissue and then dressed with sterile 2x2 then covered with sterile gauze roll. Advised to keep it until Saturday when he will see color drum worker, as much as possible, I gave him [...] associa florentino with type 2 diabetes mellitus ([facility]/HCC) 04/05/2017 Essential hypertension 09/27/2015 Obstructive sleep apnea syndrome 07/22/2013 Polyp of gallbladder 07/01/2012 Steatosis of liver 07/01/2012 Abnormal LFTs 06/17/2012 Anemia 06/17/2012 Foot pain 06/17/2012 Vitamin D deficiency 06/17/2012 Tinea pedis 11/23/2011 Lumbar post-laminectomy syndrome 09/24/2011 Moderate asthma without complication 08/08/2011 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 Encounters Date Type Department Care Team Description 04/01/2024 Refill [facility] MEDICINE [address] [place] [address] Name, MD Beau 03/31/2024 Orders Only GENERIC EXTERNAL DATA DEPARTMENT Provider, Generic External Data 03/27/2024 12:00 PM EST Office Visit [facility] WALK-IN CENTER [address] [place] [address] Yesica Rodriguez MD Avulsion of toenail, initial encounter (Primary Dx) 03/27/2024 Telephone [facility] MEDICINE [address] [place] [address] Beau Stewart MD Nurse Triage 03/26/2024 Refill [facility] MEDICINE [address] [place] [address] Beau Stewart MD Seborrheic dermatitis 03/14/2024 Refill [facility] MOBILE VACCINE CLINIC [address] [place] [address] Beau Stewart MD Asthma, unspecified asthma severity, unspecified whether complicated, unspecified whether persistent 03/13/2024 Refill [facility] MEDICINE [address] [place] [address] Beau Stewart MD 03/08/2024 Refill [facility] CHC MED & PEDS [address] [place] [address] Beau Stewart MD Polyneuropathy due to type 2 diabetes mellitus ([facility]/HCC) 03/05/2024 2:00 PM EST Office Visit [facility] OPTOMETRY [address] [place] [address] Gracie Brown, OD Mild nonproliferative diabetic retinopathy of both eyes without macular edema associated with type 2 diabetes mellitus ([facility]/HCC) (Primary Dx); Keratoconus of both eyes; Presbyopia of both eyes 03/05/2024 Travel 03/03/2024 Telephone [facility] MEDICINE [address] [place] [address] Erlinda Swain MA feb recalls 03/03/2024 Refill [facility] MEDICINE [address] [place] [address] Beau Stewart MD Asthma, unspecified asthma severity, unspecified whether complicated, unspecified whether persistent 02/17/2024 Orders Only GENERIC EXTERNAL DATA DEPARTMENT Provider, Generic External Data 02/02/2024 Refill [facility] MEDICINE [address] [place] [address] Beau Stewart MD Asthma, unspecified asthma severity, unspecified whether complicated, unspecified whether persistent; Chronic pain syndrome 01/30/2024 Telephone [facility] MEDICINE [address] [place] [address] She Jc, ISABEL 01/30/[address] [address] Beau Stewart MD 01/29/2024 3:15 PM EST Office Visit [address] [address] Beau Stewart MD Type 2 diabetes mellitus with other specified complication, with long-term current use of insulin ([facility]) (Primary Dx); Gastroesophageal reflux disease with esophagitis without hemorrhage; Muscle cramps; Vaccine refused by patient 01/22/[address] [address] Kamilah Portillo MA Chart Prep 01/20/2024 Orders Only GENERIC EXTERNAL DATA DEPARTMENT Provider, Generic External Data 01/16/2024 Patient Outreach [facility] CHC MED & PEDS [address] [place] [address] Beau Stewart MD Pre-visit Planning (SDOH was completed on 06/27/2023) from Last 3 Months Immunizations Name Administration [...] 2023 11/23/2011, 2007 Lipid Panel 03/20/2024 03/20/2023, 05/2020, 04/14/2020 Diabetes: Hemoglobin A1C 04/02/2024 024, 10/04/2023, 07/12/2023, Additional history exists Diabetes: Urine Protein Screening 07/24/2024 07/25/2023, 03/20/2023, 06/13/2021, Additional history exists Depression Monitoring (PHQ-9) 07/29/2024 01/29/2024, 01/29/2024 Alcohol/Substance Use Screening 01/28/2025 01/29/2024 Depression Screening 01/28/2025 01/29/2024, 01/29/20 24 SDOH Screening 01/28/2025 01/29/2024 Eye Exam 03/05/2025 03/05/2024, 10/2024, 03/05/2024, Additional history exists Tobacco Screening [...] 2045 Hepatitis A Vaccines Completed 06/17/2012, 11/23/19 12 Hepatitis C Screening Completed 11/06/2023 HIB Vaccines [...] Procedure Name Priority Date/Time Associated Diagnosis Comments CREATININE, SERUM Routine 03/31/2024 2:1 6 PM EST UREA NITROGEN (BUN) Routine 03/31/2024 2 :16 PM EST ELECTROLYTE PANEL Routine 03/31/2024 2:1 6 PM EST GLUCOSE, WHOLE BLOOD Routine 02/17/2024 1:55 PM [...] WHOLE BLOOD Routine 01/20/2024 1:43 PM EST HEMOGLOBIN A1C Routine 01/01/2024 2:50 PM EST HEPATITIS C [...] Recently Relevant to Health Maintenance Results * Creatinine, Serum (03/31/2024 2:16 PM EST) Creatinine, Serum 1.31 0.5 - 1.4 mg/dL [facility] Estimated Glomerular Filt Rate 57 [facility] Comment:Chronic Kidney Disea se: Estimated GFR < 60 mL/min/1.46r3Repgmr Kidney Disease: Estimated GFR < 15 mL/min/1.73m2 03/31/2024 2:16 PM EST 03/31/2024 2:16 PM EST us Generic External Data Provider LAB BLOOD ORDERAB LES Final Result [facility] [address] [place] [phone] * (ABNORMAL) BUN (Blood Urea Nitrogen) (03/31/2024 2:16 PM EST) Urea Nitrogen (BUN) 18(H) 9 - 16 mg/dL [facility] 03/31/2024 2:16 PM EST 03/31/2024 2:16 PM EST us Generic External Data Provider LAB BLOOD ORDERAB LES Final Result Performing Organization Address City/[facility]/ZIP Co de Phone Number [facility] [address] [place] [address] [phone] * Electrolyte Panel (03/31/2024 2:16 PM EST) Sodium 138 135 - 145 mmol/L [facility] Potassium 4.0 3.3 - 5.1 mmol/L [facility] Chloride 100 96 - 108 mmol/L [facility] Carbon Dioxide 25 22 - 29 mmol/L [facility] Anion Gap 17 12 - 20 [facility] 03/31/2024 2:16 PM EST 03/31/2024 2:16 PM EST Generic External Data Provider LAB BLOOD ORDERAB LES Final Result Performing Organization Address [facility] Co de Phone Number [facility] [address] [place] [phone] [phone] * (ABNORMAL) Glucose, Whole Blood (02/17/2024 1:55 PM EST) Only the most recent of2 resultswithin the time period is included. Glucose, Whole Blood 157(H) 60 - 115 mg/dL [facility] Comment:METER #: [id number] 5Testing performed in the Endocrinology Department [address] , [address], [facility]. 02/17/2024 1:55 PM EST 02/17/2024 1:58 PM EST us Generic External Data Provider LAB BLOOD ORDERAB LES Final Result Performing Organization Address City/[facility]/ZIP Co de Phone Number [facility] [address] [place] [address] [phone] * Magnesium (01/29/2024 3:59 PM EST) Magnesium 1.9 1.6 - 2.6 mg/dL [facility] Blood Venous blood specimen / Unknown 01/29/2024 3:59 PM EST 01/29/2024 5:33 PM EST us Beau Stewart MD LAB BLOOD ORDERABLES Final Resul t Performing Organization Address City/[facility]/ZIP Co de Phone Number [facility] [address] [place] [phone] [phone] * (ABNORMAL) Basic Metabolic Panel (01/29/2024 3:59 PM EST) Sodium 139 135 - 145 mmol/L [facility] Potassium 4.4 3.3 - 5.1 mmol/L [facility] Chloride 104 96 - 108 mmol/L [facility] Carbon Dioxide 26 22 - 29 mmol/L [facility] Anion Gap 13 12 - 20 [facility] Urea Nitrogen (BUN) 16 9 - 16 mg/dL [facility] Creatinine, Serum 1.51(H) 0.5 - 1.4 mg/dL [facility] Estimated Glomerular Filt Rate 48 [facility] Comment:Chronic Kidney Disea se: Estimated GFR < 60 mL/min/1.17k8Qgptmg Kidney Disease: Estimated GFR < 15 mL/min/1.73m2 Glucose 117(H) 60 - 115 mg/dL [facility] Calcium 9.4 8.4 - 10.2 mg/dL [facility] Blood Venous blood specimen / Unknown 01/29/2024 3:59 PM EST 01/29/2024 5:33 PM EST us Beau Stewart MD LAB BLOOD ORDERABLES Final Resul t Performing Organization Address City/[facility]/ZIP Co de Phone Number [facility] [address] [place] [address] [phone] * (ABNORMAL) Hemoglobin A1c (01/01/2024 2:50 PM EST) Hemoglobin A1c 7.0(H) <6.0 % [facility] Comment:Hemoglobin A1C Refer ence Range Adults: 4.8 - 6.0 % Non diabetic: < 6.0 % Goal: < 7.0 %Additional Action Suggested: > 8.0 %Note: Hemoglobin A1c results are invalid for patients with abnormal amounts of HbF. Blood transfusions may impact the HbA1c concentration in the patient sample. Estimated Average Glucose 154 mg/dL [facility] Comment:eAG = Estimated ave rage glucose which is %A1C expressed asaverage glucose, using the formula of the L1G-AjhpaxcEohnykl Glucose study (ADAG), Diabetes Care, Vol.31,#8,Sep. 2007 01/01/2024 2:50 PM EST 01/01/2024 2:50 PM EST us Generic External Data Provider LAB BLOOD ORDERAB LES Final Result Performing Organization Address City/[facility]/ZIP Co de Phone Number [facility] [address] [place] [phone] * Hepatitis C Antibody with Reflex to HCV, RNA, Quantitative, Real-Time PCR (11/06/2023 3:26 PM EDT) Hepatitis C Antibody Nonreactive Nonreactive [facility] Comment:Antibodies to HCV no t detected; does not exclude early acuteHCV infection. Blood Venous blood specimen / Unknown 11/06/2023 3:26 PM EDT 11/06/2023 3:58 PM EDT us Beau Stewart MD LAB BLOOD ORDERABLES Final Resul t Performing Organization Address [facility]/ZIP Co de Phone Number [facility] [address] [place] [phone] * Albumin, Random Urine W/Creatinine (07/25/2023 2:20 PM EDT) Creatinine, Urine 18.16 mg/dL [facility] Microalbumin Urine <5.0 mg/L [facility] Microalbum Creatinine Ratio Ur TNP <30 ug/mg cr [facility] Comment:Unable to calculate albumin/creatinine ratio due to lowmicroalbumin or creatinine result. 07/25/2023 2:20 PM EDT 07/25/2023 4:07 PM EDT Generic External Data Provider LAB URINE ORDERAB LES Final Result Performing Organization Address City/[facility]/ZIP Co de Phone Number [facility] [address] [place] [phone] * (ABNORMAL) Lipid Panel, Standard (03/20/2023 2:08 PM EST) Triglycerides 159(H) <150 mg/dL [facility] Comment:Desirable Triglyceri de: less than 150 mg/dLBorderline High Triglyceride 150-199 mg/dLHigh Triglyceride: 200-499 mg/dLVery High Triglyceride: greater than or equal to 5OO mg/dL Cholesterol 134 <200 mg/dL [facility] Comment:Desirable Cholestero l: less than 200 mg/dLBorderline High Cholesterol: 200-239 mg/dLHigh Cholesterol: greater than 239 mg/dL LDL Cholesterol Calculated 65 <100 mg/dL [facility] Comment:Desirable LDL: less than 100 mg/dLNear Optimal/Above Optimal LDL: 110- 129 mg/dLBorderline High LDL: 130-159 mg/dLHigh LDL: 160-189 mg/dLVery High LDL: greater than or equal to 190 mg/dL HDL Cholesterol 38(L) >40 mg/dL [facility] Comment:Desirable HDL: great er than 40 mg/dL Note: This HDL assay may give artificially low results in patients with liver disease. 03/20/2023 2:08 PM EST 03/20/2023 2:09 PM EST us Generic External Data Provider LAB BLOOD ORDERAB LES Final Result [facility] [address] [place] [phone] [phone] * Colonoscopy (06/09/2020 2:16 PM EDT) Colonoscopy Normal Normal Narrative Radha Aviles - 06/09/2020 2:16 PM EDT Recommended 10 year follow up ([facility] us Historical Provider MD HEALTH MAINTENANCE Final Result from Last 3 Months or Most Recently Relevant to Health Maintenance Insurance [facility] C3 DENTAL-[facility] MEDICAID STAND ADULT Care Teams Weight Training Instructor Relationship Specialty Start Date End Date Name, MD Beau [address] [place] [address] PCP - General Family Medicine 06/01/15
--- OUTSIDE RECORDS SUMMARY | 2024-04-03 12:14 | XMS_ITS | Encounter Summary ---
Author Organization [employer] Address [address] [place] [address] 7t [place] [address] Care Team Providers Care Greenhouse Florist Name Role Phone Name, Beau FRANKS Primary Care Provider [phone] Bambi Jauregui Unavailable Unavailable Mechelle Dumont RN Unavailable [phone] Encounter Details Date Type Department Care Team (Late st Contact Info) Description 08/06/2022 Abstract [facility] MEDICINE [address] [place] [address] Name, MD Beau [address] [place] [address] Social History Tobacco Use Types Packs/Day Years [...] PM EDT Recommended 10 year follow up ([facility] [place] [place]) us Historical Provider HEALTH MAINTENANCE Final Result documented in this encounter Visit Diagnoses Not on filedocumented in this encounter Care Teams Greenhouse Florist Relationship Specialty Start Date End Date Name, MD Beau [address] [place] [address] PCP - General Family Medicine 06/01/15 Bambi Jauregui Community Health Worker 06/27/23 09/15/23 Mechelle Dumont RN [address] [place] [address] Server Software Engineer 06/27/23 09/15/23 documented as of this encounter
--- OUTSIDE RECORDS SUMMARY | 2024-04-03 12:14 | XMS_ITS | Encounter Summary ---
Author Organization [employer] Address [address] [facility] 7t [place] [address] Care Team Providers Care Hot Die Picker Name Role Phone Name, Beau FRANKS Primary Care Provider [phone] Reason for Visit * Reason Comments Med Refill Encounter Details Date Type Department Care Team ([facility] st Contact Info) Description 04/01/2024 Refill [facility] MEDICINE [address] [place], [place] [phone] Name, MD Beau [address] [place] [address] Social History Tobacco Use Types Packs/Day Years [...] documented as of this encounter Care Teams Hot Die Picker Relationship Specialty Start Date End Date Name, MD Beau [address] [place] [address] PCP - General Family Medicine 06/01/15 documented as of this encounter
--- OUTSIDE RECORDS SUMMARY | 2024-04-03 12:14 | XMS_ITS | Encounter Summary ---
Author Organization [employer] Address [address] [facility] 7t [place] [address] Care Team Providers Care Lift Supervisor Name Role Phone Name, Beau FRANKS Primary Care Provider [phone] Encounter Details Date Type Department Care Team [...] documented as of this encounter Care Teams Lift Supervisor Relationship Specialty Start Date End Date Name, MD Beau [address] [place] [address] PCP - General Family Medicine 06/01/15 documented as of this encounter
--- OUTSIDE RECORDS SUMMARY | 2024-04-03 12:14 | XMS_ITS | Encounter Summary ---
Author Organization [employer] Address [address] [facility] 7t [place] [address] Care Team Providers Care Brush Maker Name Role Phone Name, Beau FRANKS Primary Care Provider [phone] Bambi Jauregui Unavailable Unavailable Mechelle Dumont RN Unavailable [phone] Reason for Visit * Reason Comments Med Refill Encounter Details Date Type Department Care Team ([facility] st Contact Info) Description 01/31/2023 Refill [facility] MED & PEDS [address] [place] [address] Name, MD Beau [address] [place] [address] Asthma, unspecified asthma severity, unspecified whether complicated, [...] documented as of this encounter Care Teams Brush Maker Relationship Specialty Start Date End Date Name, MD Beau [address] [place] [address] PCP - General Family Medicine 06/01/15 Bambi Jauregui Community Health Worker 06/27/23 09/15/23 Mechelle Dumont RN [address] [place] [address] Air Intercept Controller Supervisor 06/27/23 09/15/23 documented as of this encounter
--- OUTSIDE RECORDS SUMMARY | 2024-04-03 12:14 | XMS_ITS | Encounter Summary ---
Author Organization [email or web address] [facility] Address [address] [place] [address] [address] [place] [address] Care Team Providers Care Tab Cutter Name Role Phone Name, Beau FRANKS Primary Care Provider [phone] Bambi Jauregui Unavailable Unavailable Mechelle Dumont RN Unavailable [phone] Encounter Details Date Type Department Care Team (Late st Contact Info) Description 02/28/2022 Orders Only [facility] CHC MED & PEDS [address] [place] [address] Kindra Woodall LPN Social History Tobacco Use [...] on filedocumented in this encounter Care Teams Tab Cutter Relationship Specialty Start Date End Date Name, MD Beau [address] [place] [address] PCP - General Family Medicine 06/01/15 Bambi Jauregui Community Health Worker 06/27/23 09/15/23 Mechelle Dumont, ISABEL [address] [place] [address] Wood Preparation Supervisor 06/27/23 09/15/23 documented as of this encounter
--- OUTSIDE RECORDS SUMMARY | 2024-04-03 12:14 | XMS_ITS | Encounter Summary ---
Author Organization [employer] Address [address] [facility] 7t [place] [address] Care Team Providers Care Cuff Setter Name Role Phone Name, Beau FRANKS Primary Care Provider [phone] Bambi Jauregui Unavailable Unavailable Mechelle Dumont RN Unavailable [phone] Reason for Visit * Reason Comments Med Refill Encounter Details Date Type Department Care Team ([facility] st Contact Info) Description 06/10/[address] [facility] MEDICINE [address] [place], [place] [phone] Name, MD Beau [address] [place], [place] [phone] Asthma, unspecified asthma severity, unspecified whether complicated, [...] documented as of this encounter Care Teams Cuff Setter Relationship Specialty Start Date End Date Name, MD Beau [address] [place] [address] PCP - General Family Medicine 06/01/15 Bambi Jauregui Community Health Worker 06/27/23 09/15/23 Mechelle Dumont RN [address] [place] [address] Email Production Specialist 06/27/23 09/15/23 documented as of this encounter
--- OUTSIDE RECORDS SUMMARY | 2024-04-03 12:14 | XMS_ITS | Encounter Summary ---
Author Organization [employer] [facility] Address [address] [place] [address] [address] [place] [address] Care Team Providers Care Child Support Agent Name Role Phone Name, Beau FRANKS Primary Care Provider Bambi Jauregui Unavailable Unavailable Mechelle Dumont RN Unavailable [phone] Encounter Details Date Type Department Care Team ([facility] st Contact Info) Description 03/26/2022 Orders Only [facility] CHC MED & PEDS [address] [place] [address] Kindra Woodall LPN Social History Tobacco Use [...] on filedocumented in this encounter Care Teams Child Support Agent Relationship Specialty Start Date End Date Name, MD Beau [address] [place] [address] PCP - General Family Medicine 06/01/15 Bambi Jauregui Community Health Worker 06/27/23 09/15/23 Mehcelle Dumont, ISABEL [address] [place] [address] Associate Professor Of Art History 06/27/23 09/15/23 documented as of this encounter
--- OUTSIDE RECORDS SUMMARY | 2024-04-03 12:14 | XMS_ITS | Encounter Summary ---
Author Organization [employer] Address [address] [facility] 7t [place] [address] Care Team Providers Care Blueprint Developer Name Role Phone Name, Beau FRANKS Primary Care Provider [phone] Bambi Jauregui Unavailable Unavailable Mechelle Dumont RN Unavailable [phone] Encounter Details Date Type Department Care Team (Late st Contact Info) Description 04/08/2023 Orders Only [facility] CHC MED & PEDS [address] [place] [address] Ekaterina Pappas LPN Social History Tobacco Use [...] documented as of this encounter Care Teams Blueprint Developer Relationship Specialty Start Date End Date Name, MD Beau [address] [place] [address] PCP - General Family Medicine 06/01/15 Bambi Jauregui Community Health Worker 06/27/23 09/15/23 Mechelle Dumont RN [address] [place] [address] Compensation Coordinator 06/27/23 09/15/23 documented as of this encounter
--- OUTSIDE RECORDS SUMMARY | 2024-04-03 12:14 | XMS_ITS | Encounter Summary ---
Author Organization [facility] Address [address] [place] [address] [address] [place] [address] Care Team Providers Care Light Rail Vehicle Operator Name Role Phone NameBeau MD Primary Care Provider [phone] Bambi Jauregui Unavailable Unavailable Mechelle Dumont RN Unavailable [phone] Reason for Visit * Reason Comments Med Refill Encounter Details Date Type Department Care Team (Late st Contact Info) Description 05/28/2022 Refill [facility] MEDICINE [address] [place], [place] [phone] NameBeau MD [address] [place] [address] Asthma, unspecified asthma severity, unspecified whether complicated, [...] persistent documented in this encounter Care Teams Light Rail Vehicle Operator Relationship Specialty Start Date End Date NameBeau MD [address] [place] [address] PCP - General Family Medicine 06/01/15 Bambi Jauregui Community Health Worker 06/27/23 09/15/23 Mechelle Dumont RN [address] [place] [address] Baster Hand 06/27/23 09/15/23 documented as of this encounter
--- OUTSIDE RECORDS SUMMARY | 2024-04-03 12:14 | XMS_ITS | Encounter Summary ---
Author Organization [employer] [facility] Address [address] [place] [address] [address] [address] Care Team Providers Care Critical Care Clinical Nurse Specialist Name Role Phone Name, Beau FRANKS Primary Care Provider [phone] Bambi Jauregui Unavailable Unavailable Mechelle Dumont RN Unavailable [phone] Reason for Visit * Reason Comments Med Refill Encounter Details Date Type Department Care Team (Late st Contact Info) Description 06/11/2022 Refill [facility] MEDICINE 230 [place], [place] [phone] NameBeau MD 230 [place] [address] Iron deficiency Social History Tobacco Use Types [...] metabolism documented in this encounter Care Teams Critical Care Clinical Nurse Specialist Relationship Specialty Start Date End Date Beau Stewart MD 230 [place] [address] PCP - General Family Medicine 06/01/15 Bambi Jauregui Community Health Worker 06/27/23 09/15/23 Mechelle Dumont, ISABEL [address] [facility] [place] [address] Critical Care Transport Nurse 06/27/23 09/15/23 documented as of this encounter
--- OUTSIDE RECORDS SUMMARY | 2024-04-03 12:14 | XMS_ITS | Encounter Summary ---
Author Organization [employer] Address [address] [place] [address] 7[place] [address] Care Team Providers Care Vision Mixer Name Role Phone Name, Beau FRANKS Primary Care Provider [phone] Bambi Jauregui Unavailable Unavailable Mechelle Dumont RN Unavailable [phone] Reason for Visit * Reason Onset Date Comments PT1 11/14/2022 Encounter Details Date Type Department Care Team (Late st Contact Info) Description 11/14/2022 Telephone [facility] MEDICINE 230 [place] [address] Name, MD Beau 230 [place] [address] PT1 Social History Tobacco Use Types Packs/Day [...] 10:01 AM EDT Allergy PT-1 Request Number [id number] is Pending Dr Salazar PT-1 Request Number [id number] is Pending Ortho PT-1 Request Number [id number] is Pending Pt has an active PT1 for HHC * Telephone Encounter - Melva Nunez - 11/14/2022 3:57 PM EDT PT1 Address verified Date: 11/20/22 Time: 2 pm Visits: Address: [address] [place] [address] Facility: Allergy Injection Wheel Chair: n/a High Man Needed: no PT1 Date: 12/05/22 Time: 11:30 am Visits: Address: [address] [place] [address] Facility: Orthopedic Wheel Chair: n/a High Man Needed: no PT1 Date: 12/07/22 Time: 11:15 am Visits: Address: [address] [place] Facility: PCP Wheel Chair: n/a High Man Needed: no PT1 Date: 12/07/22 Time: 2:30 pm Visits: Address: [address] [place] [address] [place] [address] Facility: Dr. Salazar Wheel Chair: n/a High Man Needed: no documented in this encounter Plan of Treatment Not on file documented as of this encounter Visit Diagnoses Not on filedocumented in this encounter Care Teams Vision Mixer Relationship Specialty Start Date End Date Name, MD Beau 230 [place] [address] PCP - General Family Medicine 06/01/15 Bambi Jauregui Community Health Worker 06/27/23 09/15/23 Mechelle Dumont RN [address] [place] [address] Logistic Manager 06/27/23 09/15/23 documented as of this encounter
--- OUTSIDE RECORDS SUMMARY | 2024-04-03 12:14 | XMS_ITS | Encounter Summary ---
Author Organization [employer] Address [address] [facility] 7t [place] [address] Care Team Providers Care Roll Up Machine Operator Name Role Phone Name, Beau FRANKS Primary Care Provider [phone] Reason for Visit * Reason Comments Med Refill Encounter Details Date Type Department Care Team ([facility] st Contact Info) Description 03/14/2024 Refill [facility] 230 [place], [place] [phone] Name, MD Beau 230 [place] [address] Asthma, unspecified asthma severity, unspecified whether complicated, [...] documented as of this encounter Care Teams Roll Up Machine Operator Relationship Specialty Start Date End Date Name, MD Beau 230 [place] [address] PCP - General Family Medicine 06/01/15 documented as of this encounter
--- OUTSIDE RECORDS SUMMARY | 2024-04-03 12:14 | XMS_ITS | Encounter Summary ---
Author Organization [employer] Address [address] [facility] 7t [place] [address] Care Team Providers Care Combat Information Center Officer Name Role Phone Name, Beau FRANKS Primary Care Provider [phone] Reason for Visit * Reason Comments Med Refill Encounter Details Date Type Department Care Team ([facility] st Contact Info) Description 10/18/2023 Refill [facility] MEDICINE 230 [place], [place] [phone] Chiquis Harris MD 230 [place], [place] [phone] Iron deficiency Social History Tobacco Use Types [...] documented as of this encounter Care Teams Combat Information Center Officer Relationship Specialty Start Date End Date Name, MD Beau 230 [place] [address] PCP - General Family Medicine 06/01/15 documented as of this encounter
--- OUTSIDE RECORDS SUMMARY | 2024-04-03 12:14 | XMS_ITS | Encounter Summary ---
Author Organization [employer] [facility] Address [address] [place] [address] 7 [place] [address] Care Team Providers Care Forestry Tree Pruner Name Role Phone NameBeau MD Primary Care Provider [phone] Bambi Jauregui Unavailable Unavailable Mechelle Dumont RN Unavailable [phone] Reason for Visit * Reason Comments Med Refill Encounter Details Date Type Department Care Team (Late st Contact Info) Description 06/08/2022 Refill [facility] MEDICINE 230 [place], [place] [phone] NameBeau MD 230 [place] [address] Asthma, unspecified asthma severity, unspecified whether complicated, [...] persistent documented in this encounter Care Teams Forestry Tree Pruner Relationship Specialty Start Date End Date NameBeau MD 230 [place] [address] PCP - General Family Medicine 06/01/15 Bambi Jauregui Community Health Worker 06/27/23 09/15/23 Mechelle Dumont RN [address] [place] [address] Engineer Gas Pumping Station 06/27/23 09/15/23 documented as of this encounter
--- OUTSIDE RECORDS SUMMARY | 2024-04-03 12:14 | XMS_ITS | Encounter Summary ---
Author Organization [employer] Address [address] [facility] 7t [place] [address] Care Team Providers Care Manager Strategic Development Name Role Phone Name, Beau FRANKS Primary Care Provider [phone] Reason for Visit * Reason Comments Med Refill Encounter Details Date Type Department Care Team ([facility] st Contact Info) Description 09/19/2023 Refill [facility] MEDICINE 230 [place], [place] [phone] Name, MD Beau 230 [place], [place] [phone] Erectile dysfunction, unspecified erectile dysfunction type Social [...] documented as of this encounter Care Teams Manager Strategic Development Relationship Specialty Start Date End Date Name, MD Beau 230 [place] [address] PCP - General Family Medicine 06/01/15 documented as of this encounter
--- OUTSIDE RECORDS SUMMARY | 2024-04-03 12:14 | XMS_ITS | Encounter Summary ---
Author Organization [employer] Address [address] [facility] 7t [place] [address] Care Team Providers Care Resource Coordinator Name Role Phone Name, Beau FRANKS Primary Care Provider [phone] Bambi Jauregui Unavailable Unavailable Mechelle Dumont RN Unavailable [phone] Reason for Visit * Reason Comments Med Refill Encounter Details Date Type Department Care Team ([facility] st Contact Info) Description 06/13/2023 Refill [facility] MEDICINE 230 [place], [place] [phone] Name, MD Beau 230 [place], [place] [phone] Asthma, unspecified asthma severity, unspecified whether complicated, [...] documented as of this encounter Care Teams Resource Coordinator Relationship Specialty Start Date End Date Name, MD Beau 230 [place] [address] PCP - General Family Medicine 06/01/15 Bambi Jauregui Community Health Worker 06/27/23 09/15/23 Mechelle Dumont RN 505 [place] [address] Pill Packer 06/27/23 09/15/23 documented as of this encounter
--- OUTSIDE RECORDS SUMMARY | 2024-04-03 12:14 | XMS_ITS | Clinical Summary ---
Author Organization [facility] Address [address] [place] [address] [place] [address] Phone Care Team Providers Care Editor School Photograph Name Role Phone Name, Beau FRANKS Primary Care Provider [phone] Medications albuterol (2.5 MG/3ML) 0.083% nebulizer solution [...] Insurance [place] Care Teams Editor School Photograph Relationship Specialty Start Date End Date Name, MD Beau [address] [place] [address] PCP - General Internal Medicine 10/05/21
--- OUTSIDE RECORDS SUMMARY | 2024-04-03 12:14 | XMS_ITS | Encounter Summary ---
Author Organization [employer] Address [address] [facility] 7t [place] [address] Care Team Providers Care Water Sponger Name Role Phone Name, Beau FRANKS Primary Care Provider [phone] Reason for Visit * Reason Comments Med Refill Encounter Details Date Type Department Care Team ([facility] st Contact Info) Description 03/26/2024 Refill [facility] MEDICINE 230 [place], [place] [phone] Name, MD Beau 230 [place] [address] Seborrheic dermatitis Social History Tobacco Use Types [...] documented as of this encounter Care Teams Water Sponger Relationship Specialty Start Date End Date Name, MD Beau 230 [place] [address] PCP - General Family Medicine 06/01/15 documented as of this encounter
--- OUTSIDE RECORDS SUMMARY | 2024-04-03 12:14 | XMS_ITS | Encounter Summary ---
Author Organization [employer] Address [address] [facility] 7t [place] [address] Care Team Providers Care Admitting Manager Name Role Phone Name, Beau FRANKS Primary Care Provider [phone] Reason for Visit * Reason Comments Med Refill Encounter Details Date Type Department Care Team ([facility] st Contact Info) Description 10/04/2023 Refill [facility] MEDICINE 230 [place], [place] [phone] Name, MD Beau 230 [place] [address] Social History Tobacco Use Types Packs/Day Years [...] documented as of this encounter Care Teams Admitting Manager Relationship Specialty Start Date End Date Name, MD Beau [address] [place] [address] PCP - General Family Medicine 06/01/15 documented as of this encounter
--- OUTSIDE RECORDS SUMMARY | 2024-04-03 12:14 | XMS_ITS | Encounter Summary ---
Author Organization [employer] [facility] Address [address] [place] [address] [address] [address] Care Team Providers Care Optometric Coordinator Name Role Phone Name, Beau FRANKS Primary Care Provider [phone] Bambi Jauregui Unavailable Unavailable Mechelle Dumont RN Unavailable [phone] Encounter Details Date Type Department Care Team (Late st Contact Info) Description 03/02/2022 Orders Only [facility] MEDICINE 230 [place] [address] Lelia Moeller RN 230 [place] [address] Social History Tobacco Use Types Packs/Day Years [...] on filedocumented in this encounter Care Teams Optometric Coordinator Relationship Specialty Start Date End Date Name, MD Beau 230 [place] [address] PCP - General Family Medicine 06/01/15 Bambi Jauregui Community Health Worker 06/27/23 09/15/23 Mechelle Dumont, ISABEL [address] [place] [address] Aerophysics Engineer 06/27/23 09/15/23 documented as of this encounter
--- OUTSIDE RECORDS SUMMARY | 2024-04-03 12:14 | XMS_ITS | Encounter Summary ---
Author Organization [employer] Address [address] [facility] 7t [place] [address] Care Team Providers Care Network Design Architect Name Role Phone Name, Beau FRANKS Primary Care Provider [phone] Encounter Details Date Type Department Care Team (Late st Contact Info) Description 03/31/2024 Orders Only GENERIC EXTERNAL DATA DEPARTMENT Provider, Generic External Data Social History Tobacco Use Types Packs/Day Years [...] PANEL Routine 03/31/2024 2:1 6 PM EST documented in this encounter Results * Creatinine, Serum (03/31/2024 2:16 PM EST) Creatinine, Serum 1.31 0.5 - 1.4 mg/dL [facility] Estimated Glomerular Filt Rate 57 [facility] Comment:Chronic Kidney Disea se: Estimated GFR < 60 mL/min/1.42x2Kymecb Kidney Disease: Estimated GFR < 15 mL/min/1.73m2 03/31/2024 2:16 PM EST 03/31/2024 2:16 PM EST us Generic External Data Provider LAB BLOOD ORDERAB LES Final Result [facility] [address] [place] [phone] * (ABNORMAL) BUN (Blood Urea Nitrogen) (03/31/2024 2:16 PM EST) Urea Nitrogen (BUN) 18(H) 9 - 16 mg/dL [facility] 03/31/2024 2:16 PM EST 03/31/2024 2:16 PM EST us Generic External Data Provider LAB BLOOD ORDERAB LES Final Result Performing Organization Address [facility] Co de Phone Number [facility] [address] [place] [address] [phone] * Electrolyte Panel (03/31/2024 2:16 PM EST) Sodium 138 135 - 145 mmol/L [facility] Potassium 4.0 3.3 - 5.1 mmol/L [facility] Chloride 100 96 - 108 mmol/L [facility] Carbon Dioxide 25 22 - 29 mmol/L [facility] Anion Gap 17 12 - 20 [facility] 03/31/2024 2:16 PM EST 03/31/2024 2:16 PM EST us Generic External Data Provider LAB BLOOD ORDERAB LES Final Result Performing Organization Address [facility] de Phone Number [facility] [address] [place] [phone] documented in this encounter Visit Diagnoses Not on filedocumented in this encounter Additional Health Concerns Assessment Noted Time PHQ-9 Depression Total Score: 24 024 3:46 PM EST documented as of this encounter Care Teams Network Design Architect Relationship Specialty Start Date End Date Name, MD Beau [address] [place] [address] PCP - General Family Medicine 06/01/15 documented as of this encounter
--- OUTSIDE RECORDS SUMMARY | 2024-04-03 12:14 | XMS_ITS | Encounter Summary ---
Author Organization [employer] Address [address] [facility] 7t [place] [address] Care Team Providers Care Passenger Booking Clerk Name Role Phone Name, Beau FRANKS Primary Care Provider [phone] Reason for Visit * Reason Onset Date Comments Med Refill 10/04/2023 Encounter Details Date Type Department Care Team ([facility] st Contact Info) Description 10/04/2023 Telephone [facility] MEDICINE 230 [place], [place] [phone] Name, MD Beau [address] [place] [address] Med Refill Social History Tobacco Use Types [...] MG EC tablet [id number] [place], [place] - [address] [place] [address] documented in this encounter Plan of Treatment Not on file documented as of this encounter Visit Diagnoses Not on filedocumented in this encounter Additional Health Concerns Assessment Noted Time PHQ-9 Depression Total Score: 19 023 3:46 PM EDT documented as of this encounter Care Teams Passenger Booking Clerk Relationship Specialty Start Date End Date Name, MD Beau [address] [place] [address] PCP - General Family Medicine 06/01/15 documented as of this encounter
--- OUTSIDE RECORDS SUMMARY | 2024-04-03 12:14 | XMS_ITS | Encounter Summary ---
Author Organization [employer] Address [address] [place] [address] 7t [place] [address] Care Team Providers Care Storage Battery Charger Name Role Phone Name, Beau FRANKS Primary Care Provider [phone] Bambi Jauregui Unavailable Unavailable Mechelle Dumont RN Unavailable [phone] Reason for Visit * Reason Onset Date Comments Med Refill 08/21/2022 Encounter Details Date Type Department Care Team (Late st Contact Info) Description 08/21/2022 Telephone [facility] MEDICINE 230 [place] [address] Name, MD Beau 230 [place] [address] Med Refill Social History Tobacco Use Types [...] on filedocumented in this encounter Care Teams Storage Battery Charger Relationship Specialty Start Date End Date Name, MD Beau 230 [place] [address] PCP - General Family Medicine 06/01/15 Bambi Jauregui Community Health Worker 06/27/23 09/15/23 Mechelle Dumont RN [address] [place] [address] [employer] Worker 06/27/23 09/15/23 documented as of this encounter
--- OUTSIDE RECORDS SUMMARY | 2024-04-03 12:14 | XMS_ITS | Encounter Summary ---
Author Organization [employer] Address [address] [facility] 7t [place] [address] Care Team Providers Care Livestock Brands Inspector Name Role Phone Name, Beau FRANKS Primary Care Provider [phone] Reason for Visit * Reason Comments Med Refill Encounter Details Date Type Department Care Team ([facility] st Contact Info) Description 03/13/2024 Refill [facility] MEDICINE 230 [place], [place] [phone] Name, MD Beau 230 [place] [address] Social History Tobacco Use Types Packs/Day Years [...] documented as of this encounter Care Teams Livestock Brands Inspector Relationship Specialty Start Date End Date Name, MD Beau 230 [place] [address] PCP - General Family Medicine 06/01/15 documented as of this encounter
--- OUTSIDE RECORDS SUMMARY | 2024-04-03 12:14 | XMS_ITS | Encounter Summary ---
Author Organization [employer] Address [address] [facility] 7t [place] [address] Care Team Providers Care Manager Law Name Role Phone Name, Beau FRANKS Primary Care Provider Reason for Visit * Reason Comments Toe Pain Encounter Details Date Type Department Care Team ([facility] st Contact Info) Description 03/27/2024 12:00 PM EST Office Visit [facility] 230 [place], [place] [phone] Yesica Rodriguez MD 230 [place], [place] [phone] Avulsion of toenail, initial encounter (Primary Dx) [...] toe. He used to be followed by manager local whorecently and has an appointment with a new manager local next week. He does not have any [...] it until Saturday when he will see manager local, as much as possible, I gave him [...] it until Saturday when he will see manager local, as much as possible, I gave him [...] as of this encounter Care Teams Manager Law Relationship Specialty Start Date End Date Name, MD Beau 230 [place] [address] PCP - General Family Medicine 06/01/15 documented as of this encounter
--- OUTSIDE RECORDS SUMMARY | 2024-04-03 12:14 | XMS_ITS | Encounter Summary ---
Author Organization [employer] Address [address] [facility] 7t [place] [address] Care Team Providers Care Aitchbone Breaker Name Role Phone Name, Beau FRANKS Primary Care Provider [phone] Reason for Visit * Reason Comments Diabetic Eye Exam Encounter Details Date Type Department Care Team (Latest Contact Info) Description 03/05/2024 2:00 PM EST Office Visit [facility] [address] [place], [place] [phone] Gracie Brown, OD [address] [place] [address] Mild nonproliferative diabetic retinopathy of both eyes [...] exam. He receives contact lens care at [facility] and was evaluated and issued new contact lenses in December 2023. He reports no changes in vision and uses near spectacles over his contact lens (CL). He broke his glasses andis currently using +3.25 OTC readers. He has a history of Type 2 diabetes with last A1c 6.8 here in10/04/2023 but reports A1c of 7 at [facility] 1-2 months ago. Mild non-proliferative diabetic [...] Type: NVO Manifest Refraction (Over) Sphere Cylinder Coden Dist VA Add Near VA Right +0.25 [...] edema associated with type 2 diabetes mellitus ([facility]) Type 2 diabetes with mild nonproliferative diabetic [...] (OS). Patient receives contact lens services at [facility]. Recommend continue contact lens (CL) care with [...] edema associated with type 2 diabetes mellitus ([facility])- Primary Keratoconus of both eyes Presbyopia of both eyes documented in this encounter Additional Health Concerns Assessment Noted Time PHQ-9 Depression Total Score: 24 024 3:46 PM EST documented as of this encounter Care Teams Aitchbone Breaker Relationship Specialty Start Date End Date Name, MD Beau [address] [place] [address] PCP - General Family Medicine 06/01/15 documented as of this encounter
== END 2024-04-03 11:55 | disposition home or self-care (01) ==
PROVIDERS: PCP Internal Medicine Geriatric Medicine; Visit Provider Internal Medicine Nephrology
DX: I10 Essential (primary) hypertension (principal); R60.0 Localized edema; N18.31 Chronic kidney disease, stage 3a
CPT/HCPCS: 99214

== ENCOUNTER → 2024-04-03 11:13 | Outpatient (BNVA) | payer MEDICAID, SELFPAY | PROVIDERS: PCP Internal Medicine Geriatric Medicine; Visit Provider Internal Medicine Nephrology | DX: I12.9 Hypertensive chronic kidney disease with stage 1 through stage 4 chronic kidney disease, or unspecified chronic kidney disease (principal); E11.22 Type 2 diabetes mellitus with diabetic chronic kidney disease; R60.0 Localized edema; N18.31 Chronic kidney disease, stage 3a | CPT/HCPCS: 99212 ==

== ENCOUNTER 2024-04-30 15:51 | Outpatient (REF) | payer MEDICAID, SELFPAY ==
[2024-04-30 17:38] LABS: Anion Gap 12 (12-20); Blood Urea Nitrogen 14 mg/dL (9-16); Carbon Dioxide 31 mmol/L (22-29); Chloride 101 mmol/L (96-108); Estimated Glomerular Filt Rate > 60; Potassium 4.4 mmol/L (3.3-5.1); Sodium 140 mmol/L (135-145)
[2024-04-30 17:42] LABS: Uric Acid 7.3 mg/dL (3.4-7.0)
--- OUTSIDE RECORDS SUMMARY | 2024-04-30 19:12 | XMS_ITS | Encounter Summary ---
Author Organization [employer] Address [address] [facility] 7t [place] [address] Care Team Providers Care Machine Former Name Role Phone Name, Beau FRANKS Primary Care Provider [phone] Reason for Visit * Reason Comments Med Refill Encounter Details Date Type Department Care Team ([facility] st Contact Info) Description 04/07/2024 Refill [facility] MEDICINE 230 [place], [place] [phone] Name, MD Beau [address] [place] [address] Chronic pain syndrome Social History Tobacco Use [...] documented as of this encounter Care Teams Machine Former Relationship Specialty Start Date End Date Name, MD Beau [address] [place] [address] PCP - General Family Medicine 06/01/15 documented as of this encounter
--- OUTSIDE RECORDS SUMMARY | 2024-04-30 19:12 | XMS_ITS | Clinical Summary ---
Author Organization [employer] Address [address] [place] [address] 7[address] [place] [address] Care Team Providers Care Distance Education Director Name Role Phone Name, Beau FRANKS Primary Care Provider Allergies Active Allergy Reactions Criticality Noted Date [...] mouth 2 times daily. 60 tablet 11 04/17/19 24 Active UltiCare Insulin Syringe 30G X 5/16 1 ML miscIndication s:Diabetes mellitus type 2 in obese DIRECTED ONCE A DAY 100 each 3 05/02/19 24 Active calcium carbonate (Tums) 500 MG chewable tablet Chew 1 tablet (500 mg) if needed in the morning, at noon, in the evening, and at bedtime for indigestion or heartburn. 90 tablet 11 05/16/19 24 025 Active clindamycin (Cleocin) 300 [...] mouth every other day. 09/21/19 24 Active pravastatin (Pravachol) 20 MG tablet TAKE 1 TABLET BY MOUTH AT BEDTIME 90 tablet 1 12/10/19 24 Active tadalafil (Cialis) 20 MG tabletIndicati ons:Erectile dysfunction, unspecified erectile dysfunction type TAKE 1 [...] every other day. 01/30/20 24 025 Active glimepiride (Amaryl) 2 MG tablet TAKE 1 TABLET BY MOUTH EVERY DAY 90 tablet 03/13/19 25 Active albuterol (2.5 MG/3ML) 0.083% nebulizer solutionIndica tions:Asthma, unspecified asthma severity, unspecified whether complicated, unspecified whether persistent USE 3 ML VIA NEBULIZER EVERY MORNING AND EVERY AFTERNOON AND EVERY NIGHT AT BEDTIME 90 mL 1 03/17/19 25 Active ketoconazole (NIZOral) 2 % shampooIndicat ions:Seborrhei c dermatitis APPLY TOPICALLY 2 TIMES A WEEK 120 mL 2 03/26/19 25 Active omeprazole (PriLOSEC) [address] capsule TAKE 1 CAPSULE(20 MG) BY MOUTH TWICE DAILY 180 capsule 1 04/02/19 25 Active gabapentin (Neurontin) 300 MG capsuleIndicat ions: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 (CMS/HCC) TAKE 1 CAPSULE(300 MG) BY MOUTH THREE TIMES DAILY 90 capsule 04/08/19 25 Active Diclofenac Sodium 1 % gelIndications :Chronic pain syndrome APPLY 2 GRAMS TOPICALLY TO THE AFFECTED AREA FOUR TIMES DAILY NEEDED FOR BACK PAIN 100 g 1 04/08/19 25 Active Ventolin HFA 108 (90 Base) MCG/ACT inhalerIndicat ions:Asthma, unspecified asthma severity, unspecified whether complicated, unspecified whether persistent INHALE 2 PUFFS BY MOUTH EVERY 4 TO 6 HOURS NEEDED 18 g 1 04/08/19 25 Active magnesium oxide (Mag-Ox) 400 MG tablet TAKE 1 TABLET BY MOUTH THREE TIMES DAILY 90 tablet 3 04/30/19 25 Active magnesium oxide (Mag-Ox) 400 MG tablet Take 1 tablet (400 mg) by mouth 3 times daily. 90 tablet 3 11/07/19 24 025 Discontinued omeprazole (PriLOSEC) [address] capsule Do not crush or chew.TAKE 1 CAPSULE(20 MG) BY MOUTH ONCE a day 01/29/20 24 025 Discontinued Diclofenac Sodium 1 % gelIndications :Chronic pain syndrome APPLY 2 GRAMS TOPICALLY TO THE AFFECTED AREA FOUR TIMES DAILY NEEDED FOR BACK PAIN 100 g 1 02/03/20 24 025 Discontinued(R eorder (will not trigger notification to Pharmacy)) Ventolin HFA 108 (90 Base) MCG/ACT inhalerIndicat ions:Asthma, unspecified asthma severity, unspecified whether complicated, unspecified whether persistent INHALE 2 PUFFS BY MOUTH EVERY 4 TO 6 HOURS NEEDED 18 g 1 03/03/19 25 025 Discontinued(R eorder (will not trigger notification to Pharmacy)) gabapentin (Neurontin) 300 MG capsuleIndicat ions: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 Advised to keep it until Saturday when he will see patient financial services specialist, as much as possible, I gave him [...] associa florentino with type 2 diabetes mellitus ([facility]) 04/05/2017 Essential hypertension 09/27/2015 Obstructive sleep apnea syndrome 07/22/2013 Polyp of gallbladder 07/01/2012 Steatosis of liver 07/01/2012 Abnormal LFTs 06/17/2012 Anemia 06/17/2012 Foot pain 06/17/2012 Vitamin D deficiency 06/17/2012 Tinea pedis 11/23/2011 Lumbar post-laminectomy syndrome 09/24/2011 Moderate asthma without complication 08/08/2011 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 Encounters Date Type Department Care Team Description 04/30/2024 Orders Only GENERIC EXTERNAL DATA DEPARTMENT Provider, Generic External Data 04/29/2024 Refill [facility] [address] [place] [phone] Name, MD Beau 04/20/2024 11:00 AM EST Office Visit [facility] [address] [place] [address] Alvin, Florecita, OD Presbyopia of both eyes (Primary Dx) 04/08/2024 Refill [facility] [address] [place] [address] Beau Stewart MD Asthma, unspecified asthma severity, unspecified whether complicated, unspecified whether persistent 04/07/2024 Refill [facility] [address] [place] [address] Felecia Gunderson NP Polyneuropathy due to type 2 diabetes mellitus ([facility]); Chronic pain syndrome 04/07/2024 Refill [facility] [address] [place] [address] Beau Stewart MD Chronic pain syndrome 04/07/2024 Refill [facility] [address] [place] [address] Laura Russell MD Asthma, unspecified asthma severity, unspecified whether complicated, unspecified whether persistent 04/01/2024 Refill [facility] [address] [place] [address] Beau Stewart MD 03/31/2024 Orders Only GENERIC EXTERNAL DATA DEPARTMENT Provider, Generic External Data 03/27/2024 12:00 PM EST Office Visit [facility] [address] [place] [address] Yesica Rodriguez MD Avulsion of toenail, initial encounter (Primary Dx) 03/27/2024 Telephone [facility] [address] [place] [address] Beau Stewart MD Nurse Triage 03/26/2024 Refill [facility] [address] [place] [address] Beau Stewart MD Seborrheic dermatitis 03/14/2024 Refill [facility] [address] [place] [phone] Beau Stewart MD Asthma, unspecified asthma severity, unspecified whether complicated, unspecified whether persistent 03/13/2024 Refill [facility] [address] [place] [address] Beau Stewart MD 03/08/2024 Refill [facility] [address] [place] [address] NameBeau MD Polyneuropathy due to type 2 diabetes mellitus ([facility]) 03/05/2024 2:00 PM EST Office Visit [facility] [address] [place] [address] eKvin Gracie, OD Mild nonproliferative diabetic retinopathy of both eyes without macular edema associated with type 2 diabetes mellitus ([facility]) (Primary Dx); Keratoconus of both eyes; Presbyopia of both eyes 03/05/2024 Travel 03/03/2024 Telephone [facility] [address] [place] [address] Erlinda Swain MA mar recalls 03/03/2024 Refill [facility] [address] [place] [address] Beau Stewart MD Asthma, unspecified asthma severity, unspecified whether complicated, unspecified whether persistent 02/17/2024 Orders Only GENERIC EXTERNAL DATA DEPARTMENT Provider, Generic External Data 02/02/2024 Refill [facility] [address] [place] [address] Beau Stewart MD Asthma, unspecified asthma severity, unspecified whether complicated, unspecified whether persistent; Chronic pain syndrome from Last 3 Months Immunizations Name Administration [...] Procedure Name Priority Date/Time Associated Diagnosis Comments URIC ACID Routine 04/30/2024 4:21 PM EST CREATININE, SERUM Routine 04/30/2024 4:2 1 PM EST UREA NITROGEN (BUN) Routine 04/30/2024 4 :21 PM EST ELECTROLYTE PANEL Routine 04/30/2024 4:2 1 PM EST CREATININE, SERUM Routine 03/31/2024 2:1 6 PM EST UREA NITROGEN (BUN) Routine 03/31/2024 2 :16 PM EST ELECTROLYTE PANEL Routine 03/31/2024 2:1 6 PM EST GLUCOSE, WHOLE BLOOD Routine 02/17/2024 1:55 PM EST HEMOGLOBIN A1C Routine 01/01/2024 2:50 PM EST HEPATITIS C AB W/REFL TO HCV RNA, QN, PCR Routine 11/06/2023 3:26 PM EDT Other cirrhosis of liver (CMS/HCC) PANORAMIC RADIOGRAPHIC IMAGE Routine 09/27/2023 8:00 AM EDT ALBUMIN, RANDOM URINE W/CREATININE Routine 07/25/2023 2:20 PM EDT LIPID PANEL, STANDARD Routine 03/20/2023 2:08 PM EST INTRAORAL - COMPLETE SERIES OF RADIOGRAPHIC IMAGES Routine 07/03/2022 3:00 PM EDT PERIODIC ORAL EVALUATION - ESTABLISHED PATIENT Routine 07/03/2022 3:00 PM EDT HM COLONOSCOPY Routine 06/09/2020 2:16 PM EDT from Last 3 Months or Most Recently Relevant to Health Maintenance Results * Creatinine, Serum (04/30/2024 4:21 PM EST) Only the most recent of2 resultswithin the time period is included. Creatinine, Serum 1.18 0.5 - 1.4 mg/dL [facility] Estimated Glomerular Filt Rate >60 [facility] Comment:Chronic Kidney Disea se: Estimated GFR < 60 mL/min/1.14g2Gkpyuo Kidney Disease: Estimated GFR < 15 mL/min/1.73m2 04/30/2024 4:21 PM EST 04/30/2024 4:21 PM EST us Generic External Data Provider LAB BLOOD ORDERAB LES Final Result [facility] [address] [place] [phone] * (ABNORMAL) Uric acid (04/30/2024 4:21 PM EST) Uric Acid 7.3(H) 3.4 - 7.0 mg/dL [facility] 04/30/2024 4:21 PM EST 04/30/2024 4:21 PM EST Generic External Data Provider LAB BLOOD ORDERAB LES Final Result Performing Organization Address [facility] Co de Phone Number [facility] [address] [place] [phone] * BUN (Blood Urea Nitrogen) (04/30/2024 4:21 PM EST) Only the most recent of2 resultswithin the time period is included. Urea Nitrogen (BUN) 14 9 - 16 mg/dL [facility] 04/30/2024 4:21 PM EST 04/30/2024 4:21 PM EST Generic External Data Provider LAB BLOOD ORDERAB LES Final Result Performing Organization Address [facility] Phone Number [facility] [address] [place] [phone] * (ABNORMAL) Electrolyte Panel (04/30/2024 4:21 PM EST) Only the most recent of2 resultswithin the time period is included. Sodium 140 135 - 145 mmol/L [facility] Potassium 4.4 3.3 - 5.1 mmol/L [facility] Chloride 101 96 - 108 mmol/L [facility] Carbon Dioxide 31(H) 22 - 29 mmol/L [facility] Anion Gap 12 12 - 20 [facility] 04/30/2024 4:21 PM EST 04/30/2024 4:21 PM EST Generic External Data Provider LAB BLOOD ORDERAB LES Final Result Performing Organization Address [facility] Co de Phone Number [facility] [address] [place] [phone] * (ABNORMAL) Glucose, Whole Blood (02/17/2024 1:55 PM EST) Glucose, Whole Blood 157(H) 60 - 115 mg/dL [facility] Comment:METER #: [id number] 5Testing performed in the Endocrinology Department [address] , [address], [facility]. 02/17/2024 1:55 PM EST 02/17/2024 1:58 PM EST us Generic External Data Provider LAB BLOOD ORDERAB LES Final Result Performing Organization Address City/[facility]/ZIP Co de Phone Number [facility] [address] [place] [phone] * (ABNORMAL) Hemoglobin A1c (01/01/2024 2:50 PM EST) Hemoglobin A1c 7.0(H) <6.0 % [facility] Comment:Hemoglobin A1C Refer ence Range Adults: 4.8 - 6.0 % Non diabetic: < 6.0 % Goal: < 7.0 %Additional Action Suggested: > 8.0 %Note: Hemoglobin A1c results are invalid for patients with abnormal amounts of HbF. Blood transfusions may impact the HbA1c concentration in the patient sample. Estimated Average Glucose 154 mg/dL [facility] Comment:eAG = Estimated ave rage glucose which is %A1C expressed asaverage glucose, using the formula of the M6D-SenijqxRpvpgrn Glucose study (ADAG), Diabetes Care, Vol.31,#8,Aug. 2007 01/01/2024 2:50 PM EST 01/01/2024 2:50 PM EST us Generic External Data Provider LAB BLOOD ORDERAB LES Final Result Performing Organization Address [facility]/ZIP Co de Phone Number [facility] [address] [place] [phone] * Hepatitis C Antibody with Reflex to HCV, RNA, Quantitative, Real-Time PCR (11/06/2023 3:26 PM EDT) Hepatitis C Antibody Nonreactive Nonreactive [facility] Comment:Antibodies to HCV no t detected; does not exclude early acuteHCV infection. Blood Venous blood specimen / Unknown 11/06/2023 3:26 PM EDT 11/06/2023 3:58 PM EDT Beau Stewart MD LAB BLOOD ORDERABLES Final Resul t Performing Organization Address [facility]/ZIP Co de Phone Number [facility] [address] [place] [address] [phone] * Albumin, Random Urine W/Creatinine (07/25/2023 2:20 PM EDT) Pathologist [facility] Creatinine, Urine 18.16 mg/dL [facility] Microalbumin Urine <5.0 mg/L [facility] Microalbum Creatinine Ratio Ur TNP <30 ug/mg cr [facility] Comment:Unable to calculate albumin/creatinine ratio due to lowmicroalbumin or creatinine result. 07/25/2023 2:20 PM EDT 07/25/2023 4:07 PM EDT us Generic External Data Provider LAB URINE ORDERAB LES Final Result Performing Organization Address [facility] de Phone Number [facility] [address] [place] [address] [phone] * (ABNORMAL) Lipid Panel, Standard (03/20/2023 2:08 PM EST) Triglycerides 159(H) <150 mg/dL [facility] Comment:Desirable Triglyceri de: less than 150 mg/dLBorderline High Triglyceride 150-199 mg/dLHigh Triglyceride: 200-499 mg/dLVery High Triglyceride: greater than or equal to 5OO mg/dL Cholesterol 134 <200 mg/dL [facility] Comment:Desirable Cholestero l: less than 200 mg/dLBorderline High Cholesterol: 200-239 mg/dLHigh Cholesterol: greater than 239 mg/dL LDL Cholesterol Calculated 65 <100 mg/dL [facility] Comment:Desirable LDL: less than 100 mg/dLNear Optimal/Above Optimal LDL: 110- 129 mg/dLBorderline High LDL: 130-159 mg/dLHigh LDL: 160-189 mg/dLVery High LDL: greater than or equal to 190 mg/dL HDL Cholesterol 38(L) >40 mg/dL [facility] Comment:Desirable HDL: great er than 40 mg/dL Note: This HDL assay may give artificially low results in patients with liver disease. 03/20/2023 2:08 PM EST 03/20/2023 2:09 PM EST us Generic External Data Provider LAB BLOOD ORDERAB LES Final Result [facility] [address] [place] [phone] * Colonoscopy (06/09/2020 2:16 PM EDT) Colonoscopy Normal Normal Narrative Radha Aviles - 06/09/2020 2:16 PM EDT Recommended 10 year follow up [place] us Historical Provider HEALTH MAINTENANCE Final Result from Last 3 Months or Most Recently Relevant to Health Maintenance Insurance [facility] ST[facility] ADULT Care Teams Distance Education Director Relationship Specialty Start Date End Date Name, MD Beau [address] [place] [address] PCP - General Family Medicine 06/01/15
--- OUTSIDE RECORDS SUMMARY | 2024-04-30 19:12 | XMS_ITS | Encounter Summary ---
Author Organization [employer] Address [address] [facility] [address] [place] [address] Care Team Providers Care Clockmaker Apprentice Name Role Phone Name, Beau FRANKS Primary Care Provider [phone] Encounter Details Date Type Department Care Team [...] Creatinine, Serum 1.31 0.5 - 1.4 mg/dL [facility] Estimated Glomerular Filt Rate 57 [facility] Comment:Chronic Kidney Disea se: Estimated GFR < 60 mL/min/1.15x1Sphybe Kidney Disease: Estimated GFR < 15 mL/min/1.73m2 03/31/2024 2:16 PM EST 03/31/2024 2:16 PM EST us Generic External Data Provider LAB BLOOD ORDERAB LES Final Result [facility] [address] [place] [phone] * (ABNORMAL) BUN (Blood Urea Nitrogen) (03/31/2024 2:16 PM EST) Urea Nitrogen (BUN) 18(H) 9 - 16 mg/dL [facility] 03/31/2024 2:16 PM EST 03/31/2024 2:16 PM EST us Generic External Data Provider LAB BLOOD ORDERAB LES Final Result Performing Organization Address [facility] Co de Phone Number [facility] [address] [place] [phone] * Electrolyte Panel (03/31/2024 2:16 PM EST) Sodium 138 135 - 145 mmol/L [facility] Potassium 4.0 3.3 - 5.1 mmol/L [facility] Chloride 100 96 - 108 mmol/L [facility] Carbon Dioxide 25 22 - 29 mmol/L [facility] Anion Gap 17 12 - 20 [facility] 03/31/2024 2:16 PM EST 03/31/2024 2:16 PM EST us Generic External Data Provider LAB BLOOD ORDERAB LES Final Result Performing Organization Address [facility] de Phone Number [facility] [address] [place] [phone] documented in this encounter Visit Diagnoses Not on filedocumented in this encounter Additional Health Concerns Assessment Noted Time PHQ-9 Depression Total Score: 24 024 3:46 PM EST documented as of this encounter Care Teams Clockmaker Apprentice Relationship Specialty Start Date End Date Name, MD Beau [address] [place] [address] PCP - General Family Medicine 06/01/15 documented as of this encounter
--- OUTSIDE RECORDS SUMMARY | 2024-04-30 19:12 | XMS_ITS | Encounter Summary ---
Author Organization [employer] Address [address] [facility] [address] [place] [address] Care Team Providers Care Fitting Room Supervisor Name Role Phone Name, Beau FRANKS Primary Care Provider [phone] Encounter Details Date Type Department Care Team ([facility] st Contact Info) Description 04/20/2024 11:00 AM EST Office Visit [facility] [address] [place] [address] Alvin, Florecita, OD [address] [place] [address] Presbyopia of both eyes (Primary Dx) Social History Tobacco Use Types [...] as of this encounter Progress Notes * Florecita Esquivel OD - 04/20/2024 11:00 AM EST MH glasses were dispensed. documented in this encounter Plan of Treatment Not on file documented as of this encounter Visit Diagnoses Diagnosis Presbyopia of both eyes- Primary documented in this encounter Additional Health Concerns Assessment Noted Time PHQ-9 Depression Total Score: 24 024 3:46 PM EST documented as of this encounter Care Teams Fitting Room Supervisor Relationship Specialty Start Date End Date Name, MD Beau [address] [place] [address] PCP - General Family Medicine 06/01/15 documented as of this encounter
--- OUTSIDE RECORDS SUMMARY | 2024-04-30 19:12 | XMS_ITS | Encounter Summary ---
Author Organization [employer] Address [address] [place] [address] [address] [place] [address] Care Team Providers Care Insulation Cupola Operator Name Role Phone Name, Beau FRANKS Primary Care Provider [phone] Bambi Jauregui Unavailable Unavailable Mechelle Dumont RN Unavailable [phone] Reason for Visit * Reason Onset Date Comments PT1 11/14/2022 Encounter Details Date Type Department Care Team (Late st Contact Info) Description 11/14/2022 Telephone [facility] [address] [place] [address] Name, MD Beau [address] [place] [address] PT1 Social History Tobacco Use Types Packs/Day [...] 10:01 AM EDT Allergy PT-1 Request Number [id number] is Pending Dr Salazar PT-1 Request Number [id number] is Pending Ortho PT-1 Request Number [id number] is Pending Pt has an active PT1 for HHC * Telephone Encounter - Melva Nunez - 11/14/2022 3:57 PM EDT PT1 Address verified Date: 11/20/22 Time: 2 pm Visits: Address: [address] [place] [address] Facility: Allergy Injection Wheel Chair: n/a Clinical Review Nurse Needed: no PT1 Date: 12/05/22 Time: 11:30 am Visits: Address: [address] [place] [address] Facility: Orthopedic Wheel Chair: n/a Clinical Review Nurse Needed: no PT1 Date: 12/07/22 Time: 11:15 am Visits: Address: [address] [place], [place] Facility: PCP Wheel Chair: n/a Clinical Review Nurse Needed: no PT1 Date: 12/07/22 Time: 2:30 pm Visits: Address: [address] [place] [address] [place] [address] Facility: Dr. Salazar Wheel Chair: n/a Clinical Review Nurse Needed: no documented in this encounter Plan of Treatment Not on file documented as of this encounter Visit Diagnoses Not on filedocumented in this encounter Care Teams Insulation Cupola Operator Relationship Specialty Start Date End Date Name, MD Beau [address] [place] [address] PCP - General Family Medicine 06/01/15 Bambi Jauregui Community Health Worker 06/27/23 09/15/23 Mechelle Dumont RN [address] [place] [address] Venipuncturist 06/27/23 09/15/23 documented as of this encounter
--- OUTSIDE RECORDS SUMMARY | 2024-04-30 19:12 | XMS_ITS | Encounter Summary ---
Author Organization [employer] Address [address] [facility] [address] [place] [address] Care Team Providers Care Cnc Specialist Name Role Phone Name, Beau FRANKS Primary Care Provider [phone] Reason for Visit * Reason Comments Med Refill Encounter Details Date Type Department Care Team ([facility] st Contact Info) Description 04/07/2024 Refill [facility] [address] [place], [place] [phone] Felecia Gunderson NP [address] [place] [address] Polyneuropathy due to type 2 diabetes mellitus (CMS/HCC); Chronic pain syndrome Social History Tobacco Use [...] due to type 2 diabetes mellitus (CMS/HCC) Chronic pain syndrome documented in this encounter Additional Health Concerns Assessment Noted Time PHQ-9 Depression Total Score: 24 024 3:46 PM EST documented as of this encounter Care Teams Cnc Specialist Relationship Specialty Start Date End Date Name, MD Beau [address] [place] [address] PCP - General Family Medicine 06/01/15 documented as of this encounter
--- OUTSIDE RECORDS SUMMARY | 2024-04-30 19:12 | XMS_ITS | Encounter Summary ---
Author Organization [facility] Address [address] [place] [address] [address] [place] [address] Care Team Providers Care Movie Machine Operator Name Role Phone NameBeau MD Primary Care Provider [phone] Bambi Jauregui Unavailable Unavailable Mechelle Dumont RN Unavailable [phone] Reason for Visit * Reason Comments Med Refill Encounter Details Date Type Department Care Team (Late st Contact Info) Description 05/28/2022 Refill [facility] [address] [place], [place] [phone] NameBeau MD [address] [place] [address] Asthma, unspecified asthma severity, unspecified whether complicated, [...] persistent documented in this encounter Care Teams Movie Machine Operator Relationship Specialty Start Date End Date NameBeau MD [address] [place] [address] PCP - General Family Medicine 06/01/15 Bambi Jauregui Community Health Worker 06/27/23 09/15/23 Mechelle Dumont RN [address] [place] [phone] Youth Career Specialist 06/27/23 09/15/23 documented as of this encounter
--- OUTSIDE RECORDS SUMMARY | 2024-04-30 19:12 | XMS_ITS | Encounter Summary ---
Author Organization [employer] [facility] Address [address] [place] [address] [address] [place] [address] Care Team Providers Care Commercial Real Estate Agent Name Role Phone Name, Beau FRANKS Primary Care Provider [phone] Bambi Jauregui Unavailable Unavailable Mechelle Dumont RN Unavailable [phone] Encounter Details Date Type Department Care Team (Late st Contact Info) Description 02/28/2022 Orders Only [facility]S [address] [place] [address] Kindra Woodall LPN Social History Tobacco Use [...] on filedocumented in this encounter Care Teams Commercial Real Estate Agent Relationship Specialty Start Date End Date Name, MD Beau [address] [place] [address] PCP - General Family Medicine 06/01/15 Bambi Jauregui Community Health Worker 06/27/23 09/15/23 Mechelle Dumont, ISABEL [address] [place] [address] Wind Farm Engineer 06/27/23 09/15/23 documented as of this encounter
--- OUTSIDE RECORDS SUMMARY | 2024-04-30 19:12 | XMS_ITS | Encounter Summary ---
Author Organization [employer] Address [address] [facility] 7t [place] [address] Care Team Providers Care Photocopier Technician Name Role Phone Name, Beau FRANKS Primary Care Provider Reason for Visit * Reason Comments Med Refill Encounter Details Date Type Department Care Team ([facility] st Contact Info) Description 09/19/2023 Refill [facility] MEDICINE 230 [place], [place] [phone] Name, MD Beau 230 [place], [place] [phone] Erectile dysfunction, unspecified erectile dysfunction type Social [...] documented as of this encounter Care Teams Photocopier Technician Relationship Specialty Start Date End Date Name, MD Beau 230 [place] [address] PCP - General Family Medicine 06/01/15 documented as of this encounter
--- OUTSIDE RECORDS SUMMARY | 2024-04-30 19:12 | XMS_ITS | Encounter Summary ---
Author Organization [employer] Address 75 [facility] 7t [place] [address] Care Team Providers Care Binder And Box Builder Name Role Phone Name, Beau FRANKS Primary Care Provider [phone] Reason for Visit * Reason Onset Date Comments Med Refill 04/08/2024 Encounter Details Date Type Department Care Team ([facility] st Contact Info) Description 04/08/2024 Refill [facility] MEDICINE [address] [place], [place] [phone] Name, MD Beau 230 [place] [address] Asthma, unspecified asthma severity, unspecified whether complicated, [...] encounter Miscellaneous Notes * Telephone Encounter - Lisandro Avila - 04/08/2024 11:29 AM EST .TC from pt requesting medication refill. Medications needing refill : Ventolin HFA 108 (90 Base) MCG/ACT inhaler To be sent to: [id number] [place], [place] - [address] [place] [address] documented in this encounter Plan of Treatment Not on file documented as of this encounter Visit Diagnoses Diagnosis Asthma, unspecified asthma severity, unspecified whether complicated, unspecified whether persistent documented in this encounter Additional Health Concerns Assessment Noted Time PHQ-9 Depression Total Score: 24 024 3:46 PM EST documented as of this encounter Care Teams Binder And Box Builder Relationship Specialty Start Date End Date Name, MD Beau 230 [place] [address] PCP - General Family Medicine 06/01/15 documented as of this encounter
--- OUTSIDE RECORDS SUMMARY | 2024-04-30 19:12 | XMS_ITS | Encounter Summary ---
Author Organization [employer] Address 75 [facility] 7t [place] [address] Care Team Providers Care Second Crusher Name Role Phone Name, Beau FRANKS Primary Care Provider [phone] Reason for Visit * Reason Comments Med Refill Encounter Details Date Type Department Care Team ([facility] st Contact Info) Description 04/29/2024 Refill [facility] MEDICINE 230 [place], [place] [phone] Name, MD Beau 230 [place] [address] Social History Tobacco Use Types Packs/Day Years [...] documented as of this encounter Care Teams Second Crusher Relationship Specialty Start Date End Date Name, MD Beau 230 [place] [address] PCP - General Family Medicine 06/01/15 documented as of this encounter
--- OUTSIDE RECORDS SUMMARY | 2024-04-30 19:12 | XMS_ITS | Encounter Summary ---
Author Organization [facility] Address [address] [place] [address] 7[place] [address] Care Team Providers Care Brokerage Office Manager Name Role Phone Name, Beau FRANKS Primary Care Provider [phone] Bambi Jauregui Unavailable Unavailable Mechelle Dumont RN Unavailable [phone] Encounter Details Date Type Department Care Team (Late st Contact Info) Description 03/07/2022 Orders Only [facility] MEDICINE 230 [place] [address] Ekaterina Pappas LPN Social History Tobacco Use [...] on filedocumented in this encounter Care Teams Brokerage Office Manager Relationship Specialty Start Date End Date Name, MD Beau 230 [place] [address] PCP - General Family Medicine 06/01/15 Bambi Jauregui Community Health Worker 06/27/23 09/15/23 Mechelle Dumont, ISABEL 505 [place] [address] Machine Etcher 06/27/23 09/15/23 documented as of this encounter
--- OUTSIDE RECORDS SUMMARY | 2024-04-30 19:12 | XMS_ITS | Encounter Summary ---
Author Organization [employer] Address [address] [facility] 7t [place] [address] Care Team Providers Care Attorney At Law Name Role Phone Name, Beau FRANKS Primary Care Provider [phone] Bambi Jauregui Unavailable Unavailable Mechelle Dumont RN Unavailable [phone] Reason for Visit * Reason Comments Med Refill Encounter Details Date Type Department Care Team ([facility] st Contact Info) Description 01/31/2023 Refill [facility]EDS [address] [place] [address] Name, MD Beau 230 [place] [address] Asthma, unspecified asthma severity, unspecified whether complicated, [...] documented as of this encounter Care Teams Attorney At Law Relationship Specialty Start Date End Date Name, MD Beau 230 [place] [address] PCP - General Family Medicine 06/01/15 Bambi Jauregui Community Health Worker 06/27/23 09/15/23 Mechelle Dumont RN [address] [place] [address] Machine Installer 06/27/23 09/15/23 documented as of this encounter
--- OUTSIDE RECORDS SUMMARY | 2024-04-30 19:12 | XMS_ITS | Encounter Summary ---
Author Organization [employer] Address [address] [place] [address] 7t [place] [address] Care Team Providers Care Driver Helper Name Role Phone Name, Beau FRNAKS Primary Care Provider Bambi Jauregui Unavailable Unavailable Mechelle Dumont RN Unavailable [phone] Encounter Details Date Type Department Care Team (Late st Contact Info) Description 08/06/[address] [facility] MEDICINE 230 [place] [address] Name, MD Beau 230 [place] [address] Social History Tobacco Use Types Packs/Day Years [...] PM EDT Recommended 10 year follow up ([facility]) us Historical Provider HEALTH MAINTENANCE Final Result documented in this encounter Visit Diagnoses Not on filedocumented in this encounter Care Teams Driver Helper Relationship Specialty Start Date End Date Name, MD Beau 230 [place] [address] PCP - General Family Medicine 06/01/15 Bambi Jauregui Community Health Worker 06/27/23 09/15/23 Mechelle Dumont RN 505 [place] [address] Construction Electrician 06/27/23 09/15/23 documented as of this encounter
--- OUTSIDE RECORDS SUMMARY | 2024-04-30 19:12 | XMS_ITS | Encounter Summary ---
Author Organization [employer] Address 75 [facility] 7t [place] [address] Care Team Providers Care Photograph Retoucher Name Role Phone Name, Beau FRANKS Primary Care Provider [phone] Reason for Visit * Reason Comments Med Refill Encounter Details Date Type Department Care Team ([facility] st Contact Info) Description 04/01/2024 Refill [facility] MEDICINE 230 [place], [place] [phone] Name, MD Beau 230 [place] [address] Social History Tobacco Use Types Packs/Day Years [...] documented as of this encounter Care Teams Photograph Retoucher Relationship Specialty Start Date End Date Name, MD Beau 230 [place] [address] PCP - General Family Medicine 06/01/15 documented as of this encounter
--- OUTSIDE RECORDS SUMMARY | 2024-04-30 19:12 | XMS_ITS | Encounter Summary ---
Author Organization [employer] Address [address] [place] [address] 7t [place] [address] Care Team Providers Care Data Modeling Specialist Name Role Phone Name, Beau FRANKS Primary Care Provider [phone] Bambi Jauregui Unavailable Unavailable Mechelle Dumont RN Unavailable [phone] Reason for Visit * Reason Onset Date Comments Med Refill 08/21/2022 Encounter Details Date Type Department Care Team (Late st Contact Info) Description 08/21/2022 Telephone [facility] MEDICINE 230 [place] [address] Name, MD Beau 230 [place] [address] Med Refill Social History Tobacco Use Types [...] on filedocumented in this encounter Care Teams Data Modeling Specialist Relationship Specialty Start Date End Date Name, MD Beau 230 [place] [address] PCP - General Family Medicine 06/01/15 Bambi Jauregui Community Health Worker 06/27/23 09/15/23 Mechelle Dumont RN [address] [place] [address] Panel Monitor 06/27/23 09/15/23 documented as of this encounter
--- OUTSIDE RECORDS SUMMARY | 2024-04-30 19:12 | XMS_ITS | Encounter Summary ---
Author Organization [employer] Address 75 [facility] 7t [place] [address] Care Team Providers Care Cover Remover Name Role Phone Name, Beau FRANKS Primary Care Provider [phone] Bambi Jauregui Unavailable Unavailable Mechelle Dumont RN Unavailable [phone] Reason for Visit * Reason Comments Med Refill Encounter Details Date Type Department Care Team ([facility] st Contact Info) Description 02/21/2023 Refill [facility] MEDICINE 230 [place], [place] [phone] Name, MD Beau 230 [place] [address] Chronic pain syndrome Social History Tobacco Use [...] documented as of this encounter Care Teams Cover Remover Relationship Specialty Start Date End Date Name, MD Beau 230 [place] [address] PCP - General Family Medicine 06/01/15 Bambi Jauregui Community Health Worker 06/27/23 09/15/23 Mechelle Dumont, ISABEL 505 [place] [address] Plastic Press Operator 06/27/23 09/15/23 documented as of this encounter
--- OUTSIDE RECORDS SUMMARY | 2024-04-30 19:12 | XMS_ITS | Encounter Summary ---
Author Organization [facility] Address [address] [place] [address] [place], [place] [address] Care Team Providers Care Chemical Treatment Operator Name Role Phone Name, Beau FRANKS Primary Care Provider [phone] Bambi Jauregui Unavailable Unavailable Mechelle Dumont RN Unavailable [phone] Reason for Visit * Reason Comments Med Refill Encounter Details Date Type Department Care Team (Late st Contact Info) Description 06/11/2022 Refill [facility] MEDICINE 230 [place], [place] [phone] NameBeau MD 230 [place] [address] Iron deficiency Social History Tobacco Use Types [...] metabolism documented in this encounter Care Teams Chemical Treatment Operator Relationship Specialty Start Date End Date Beau Stewart MD 230 [place] [address] PCP - General Family Medicine 06/01/15 Bambi Jauregui Community Health Worker 06/27/23 09/15/23 Mechelle Dumont RN [address] [facility] [address] Adult Day Care Worker 06/27/23 09/15/23 documented as of this encounter
--- OUTSIDE RECORDS SUMMARY | 2024-04-30 19:12 | XMS_ITS | Encounter Summary ---
Author Organization [employer] Address 75 [facility] 7t [place] [address] Care Team Providers Care Objects Conservator Name Role Phone Name, Beau FRANKS Primary Care Provider [phone] Bambi Jauregui Unavailable Unavailable Mechelle Dumont RN Unavailable [phone] Reason for Visit * Reason Comments Med Refill Encounter Details Date Type Department Care Team ([facility] st Contact Info) Description 06/10/2023 Refill [facility] MEDICINE 230 [place], [place] [phone] Name, MD Beau 230 [place], [place] [phone] Asthma, unspecified asthma severity, unspecified whether complicated, [...] documented as of this encounter Care Teams Objects Conservator Relationship Specialty Start Date End Date Name, MD Beau 230 [place] [address] PCP - General Family Medicine 06/01/15 Bambi Jauregui Community Health Worker 06/27/23 09/15/23 Mechelle Dumont RN 505 [place] [address] Clamshell Engineer 06/27/23 09/15/23 documented as of this encounter
--- OUTSIDE RECORDS SUMMARY | 2024-04-30 19:12 | XMS_ITS | Encounter Summary ---
Author Organization [facility] Address [address] [place] [address] 7[place] [address] Care Team Providers Care Cook Apprentice Name Role Phone Name, Beau FRANKS Primary Care Provider [phone] Bambi Jauregui Unavailable Unavailable Mechelle Dumont RN Unavailable [phone] Encounter Details Date Type Department Care Team ([facility] st Contact Info) Description 03/26/2022 Orders Only [facility] MED & PEDS 505 [place] [address] Kindra Woodall LPN Social History Tobacco Use [...] on filedocumented in this encounter Care Teams Cook Apprentice Relationship Specialty Start Date End Date Name, MD Beau 230 [place] [address] PCP - General Family Medicine 06/01/15 Bambi Jauregui Community Health Worker 06/27/23 09/15/23 Mechelle Dumont, ISABEL 505 [place] [address] Training Director 06/27/23 09/15/23 documented as of this encounter
--- OUTSIDE RECORDS SUMMARY | 2024-04-30 19:12 | XMS_ITS | Encounter Summary ---
Author Organization [employer] Address 75 [facility] 7t [place] [address] Care Team Providers Care Forestry Hunter Name Role Phone Name, Beau FRANKS Primary Care Provider [phone] Encounter Details Date Type Department Care Team (Late st Contact Info) Description 04/30/2024 Orders Only GENERIC EXTERNAL DATA [...] Date/Time Associated Diagnosis Comments CREATININE, SERUM Routine 04/30/2024 4:2 1 PM EST URIC ACID Routine 04/30/2024 4:21 PM EST UREA NITROGEN (BUN) Routine 04/30/2024 4 :21 PM EST ELECTROLYTE PANEL Routine 04/30/2024 4:2 1 PM EST documented in this encounter Results * (ABNORMAL) Uric acid (04/30/2024 4:21 PM EST) Uric Acid 7.3(H) 3.4 - 7.0 mg/dL [facility] 04/30/2024 4:21 PM EST 04/30/2024 4:21 PM EST us Generic External Data Provider LAB BLOOD ORDERAB LES Final Result [facility] [address] [place] [phone] * Creatinine, Serum (04/30/2024 4:21 PM EST) Creatinine, Serum 1.18 0.5 - 1.4 mg/dL [facility] Estimated Glomerular Filt Rate >60 [facility] Comment:Chronic Kidney Disea se: Estimated GFR < 60 mL/min/1.74e3Pfzlxn Kidney Disease: Estimated GFR < 15 mL/min/1.73m2 04/30/2024 4:21 PM EST 04/30/2024 4:21 PM EST us Generic External Data Provider LAB BLOOD ORDERAB LES Final Result Performing Organization Address [facility] Co de Phone Number [facility] [address] [place] [address] [phone] * BUN (Blood Urea Nitrogen) (04/30/2024 4:21 PM EST) Urea Nitrogen (BUN) 14 9 - 16 mg/dL [facility] 04/30/2024 4:21 PM EST 04/30/2024 4:21 PM EST us Generic External Data Provider LAB BLOOD ORDERAB LES Final Result Performing Organization Address [facility] Co de Phone Number [facility] [address] [place] [phone] * (ABNORMAL) Electrolyte Panel (04/30/2024 4:21 PM EST) Sodium 140 135 - 145 mmol/L [facility] Potassium 4.4 3.3 - 5.1 mmol/L [facility] Chloride 101 96 - 108 mmol/L [facility] Carbon Dioxide 31(H) 22 - 29 mmol/L [facility] Anion Gap 12 12 - 20 [facility] 04/30/2024 4:21 PM EST 04/30/2024 4:21 PM EST Generic External Data Provider LAB BLOOD ORDERAB LES Final Result Performing Organization Address [facility] Co de Phone Number [facility] [address] [place] [phone] documented in this encounter Visit Diagnoses Not on filedocumented in this encounter Additional Health Concerns Assessment Noted Time PHQ-9 Depression Total Score: 24 024 3:46 PM EST documented as of this encounter Care Teams Forestry Hunter Relationship Specialty Start Date End Date Name, MD Beau [address] [place] [address] PCP - General Family Medicine 06/01/15 documented as of this encounter
--- OUTSIDE RECORDS SUMMARY | 2024-04-30 19:12 | XMS_ITS | Encounter Summary ---
Author Organization [employer] Address [address] [facility] 7t [place] [address] Care Team Providers Care Rn Mds Coordinator Name Role Phone Name, Beau FRANKS Primary Care Provider [phone] Bambi Jauregui Unavailable Unavailable Mechelle Dumont RN Unavailable [phone] Encounter Details Date Type Department Care Team (Late st Contact Info) Description 04/08/2023 Orders Only [facility] MED & PEDS [address] [place] [address] Ekaterina Pappas LPN Social History Tobacco Use [...] documented as of this encounter Care Teams Rn Mds Coordinator Relationship Specialty Start Date End Date Name, MD Beau [address] [place] [address] PCP - General Family Medicine 06/01/15 Bambi Jauregui Community Health Worker 06/27/23 09/15/23 Mechelle Dumont RN [address] [place] [address] Infant Nanny 06/27/23 09/15/23 documented as of this encounter
--- OUTSIDE RECORDS SUMMARY | 2024-04-30 19:12 | XMS_ITS | Encounter Summary ---
Author Organization [employer] [facility] Address [address] [place] [address] [address], [place] [address] Care Team Providers Care Direct Support Worker Name Role Phone Name, Beau FRANKS Primary Care Provider [phone] Bambi Jauregui Unavailable Unavailable Mechelle Dumont RN Unavailable [phone] Encounter Details Date Type Department Care Team (Late st Contact Info) Description 03/02/2022 Orders Only [facility] MEDICINE 230 [place] [address] Lelia Moeller RN 230 [place] [address] Social History Tobacco Use Types Packs/Day Years [...] on filedocumented in this encounter Care Teams Direct Support Worker Relationship Specialty Start Date End Date Name, MD Beau 230 [place] [address] PCP - General Family Medicine 06/01/15 Bambi Jauregui Community Health Worker 06/27/23 09/15/23 Mechelle Dumont, ISABEL 505 [place] [address] Technician Semiconductor Development 06/27/23 09/15/23 documented as of this encounter
--- OUTSIDE RECORDS SUMMARY | 2024-04-30 19:12 | XMS_ITS | Encounter Summary ---
Author Organization [facility] [facility] Address [address] [place] [address] 7 [place] [address] Care Team Providers Care Seeing Eye Dog Trainer Name Role Phone NameBeau MD Primary Care Provider Bambi Jauregui Unavailable Unavailable Mechelle Dumont RN Unavailable [phone] Reason for Visit * Reason Comments Med Refill Encounter Details Date Type Department Care Team (Late st Contact Info) Description 06/08/2022 Refill [facility] MEDICINE 230 [place], [place] [phone] NameBeau MD 230 [place] [address] Asthma, unspecified asthma severity, unspecified whether complicated, [...] persistent documented in this encounter Care Teams Seeing Eye Dog Trainer Relationship Specialty Start Date End Date NameBeau MD 230 [place] [address] PCP - General Family Medicine 06/01/15 Bambi Jauregui Community Health Worker 06/27/23 09/15/23 Mechelle Dumont RN [address] [place] [address] Water Tanker Driver 06/27/23 09/15/23 documented as of this encounter
--- OUTSIDE RECORDS SUMMARY | 2024-04-30 19:12 | XMS_ITS | Encounter Summary ---
Author Organization [employer] Address 75 [facility] 7t [place] [address] Care Team Providers Care Senior Capital Markets Specialist Name Role Phone Name, Beau FRANKS Primary Care Provider [phone] Reason for Visit * Reason Comments Med Refill Encounter Details Date Type Department Care Team ([facility] st Contact Info) Description 10/04/2023 Refill [facility] MEDICINE 230 [place], [place] [phone] Name, MD Beau [address] [place] [address] Social History Tobacco Use Types Packs/Day Years [...] as of this encounter Care Teams Senior Capital Markets Specialist Relationship Specialty Start Date End Date Name, MD Beau [address] [place] [address] PCP - General Family Medicine 06/01/15 documented as of this encounter
--- OUTSIDE RECORDS SUMMARY | 2024-04-30 19:12 | XMS_ITS | Clinical Summary ---
Author Organization [facility] Address [address] [place] [address] [place] [address] Phone Care Team Providers Care Topstitcher Zigzag Name Role Phone Name, Beau FRANKS Primary Care Provider [phone] Medications albuterol (2.5 MG/3ML) 0.083% nebulizer solution [...] Insurance [place]ID [place] Care Teams Topstitcher Zigzag Relationship Specialty Start Date End Date Name, MD Beau [address] [place] [address] PCP - General Internal Medicine 10/05/21
--- OUTSIDE RECORDS SUMMARY | 2024-04-30 19:12 | XMS_ITS | Encounter Summary ---
Author Organization [employer] Address 75 [facility] 7t [place] [address] Care Team Providers Care Professor Of Architecture Name Role Phone Name, Beau FRANKS Primary Care Provider Reason for Visit * Reason Comments Med Refill Encounter Details Date Type Department Care Team ([facility] st Contact Info) Description 10/18/2023 Refill [facility] MEDICINE 230 [place], [place] [phone] Chiquis Harris MD 230 [place], [place] [phone] Iron deficiency Social History Tobacco Use Types [...] documented as of this encounter Care Teams Professor Of Architecture Relationship Specialty Start Date End Date Name, MD Beau [address] [place] [address] PCP - General Family Medicine 06/01/15 documented as of this encounter
--- OUTSIDE RECORDS SUMMARY | 2024-04-30 19:12 | XMS_ITS | Encounter Summary ---
Author Organization [employer] [facility] Address [address] [place] [address] 7[address] [place] [address] Care Team Providers Care Plating Department Helper Name Role Phone Name, Beau FRANKS Primary Care Provider [phone] Bambi aJuregui Unavailable Unavailable Mechelle Dumont RN Unavailable [phone] Encounter Details Date Type Department Care Team (Late st Contact Info) Description 07/02/2022 Orders Only [facility] MEDICINE 230 [place] [address] Ekaterina Pappas LPN Social History Tobacco Use [...] on filedocumented in this encounter Care Teams Plating Department Helper Relationship Specialty Start Date End Date Name, MD Beau 230 [place] [address] PCP - General Family Medicine 06/01/15 Bambi Jauregui Community Health Worker 06/27/23 09/15/23 Mechelle Dumont RN [address] [place] [address] Cupola Tender Helper 06/27/23 09/15/23 documented as of this encounter
--- OUTSIDE RECORDS SUMMARY | 2024-04-30 19:12 | XMS_ITS | Encounter Summary ---
Author Organization [employer] Address 75 [facility] 7t [place] [address] Care Team Providers Care Water Filter Cleaner Name Role Phone Name, Beau FRANKS Primary Care Provider [phone] Reason for Visit * Reason Comments Med Refill Encounter Details Date Type Department Care Team ([facility] st Contact Info) Description 04/07/2024 Refill [facility] MEDICINE 230 [place], [place] [phone] Laura Russell MD [address] [place] [address] Asthma, unspecified asthma severity, unspecified whether complicated, [...] as of this encounter Care Teams Water Filter Cleaner Relationship Specialty Start Date End Date Name, MD Beau [address] [place] [address] PCP - General Family Medicine 06/01/15 documented as of this encounter
--- OUTSIDE RECORDS SUMMARY | 2024-04-30 19:12 | XMS_ITS | Encounter Summary ---
Author Organization [employer] Address [address] [facility] 7t [place] [address] Care Team Providers Care Piece Worker Name Role Phone Name, Beau FRANKS Primary Care Provider [phone] Bambi Jauregui Unavailable Unavailable Mechelle Dumont RN Unavailable [phone] Reason for Visit * Reason Comments Med Refill Encounter Details Date Type Department Care Team ([facility] st Contact Info) Description 06/13/2023 Refill [facility] MEDICINE 230 [place], [place] [phone] Name, MD Beau [address] [place], [place] [phone] Asthma, unspecified asthma severity, unspecified whether complicated, [...] documented as of this encounter Care Teams Piece Worker Relationship Specialty Start Date End Date Name, MD Beau 230 [place] [address] PCP - General Family Medicine 06/01/15 Bambi Jauregui Community Health Worker 06/27/23 09/15/23 Mechelle Dumont RN [address] [place] [address] Ramp Lead 06/27/23 09/15/23 documented as of this encounter
--- OUTSIDE RECORDS SUMMARY | 2024-04-30 19:12 | XMS_ITS | Encounter Summary ---
Author Organization [employer] Address [address] [facility] 7t [place] [address] Care Team Providers Care Tie Worker Name Role Phone Name, Beau FRANKS Primary Care Provider [phone] Reason for Visit * Reason Onset Date Comments Med Refill 10/04/2023 Encounter Details Date Type Department Care Team ([facility] st Contact Info) Description 10/04/2023 Telephone [facility] MEDICINE 230 [place], [place] [phone] Name, MD Beau [address] [place] [address] Med Refill Social History Tobacco Use Types [...] MG EC tablet [id number] [place], [place] - [address] [place] [address] documented in this encounter Plan of Treatment Not on file documented as of this encounter Visit Diagnoses Not on filedocumented in this encounter Additional Health Concerns Assessment Noted Time PHQ-9 Depression Total Score: 19 023 3:46 PM EDT documented as of this encounter Care Teams Tie Worker Relationship Specialty Start Date End Date Name, MD Beau [address] [place] [address] PCP - General Family Medicine 06/01/15 documented as of this encounter
== END 2024-04-30 15:52 | disposition home or self-care (01) ==
LOC: HO.LAB 15:51
PROVIDERS: PCP Internal Medicine Geriatric Medicine; Visit Provider Internal Medicine Nephrology
DX: R60.0 Localized edema (principal); I10 Essential (primary) hypertension; N18.31 Chronic kidney disease, stage 3a
CPT/HCPCS: 36415; 80051; 82565; 84520; 84550

== ENCOUNTER 2024-05-01 14:12 | Outpatient (AMB) | payer MEDICAID, SELFPAY ==
--- NOTE | 2024-05-01 14:14 | HO.NEPHOV ---
Vital Signs 05/01/24 14:15 Height 5 ft 6 in Weight 298 lb 4 oz BMI 48.1 BP 130/70 Blood Pressure Location Lt brachial Position Sitting Pulse 98 Pulse Source Pulse Oximeter Pulse Oximetry (%) 97 Oxygen Delivery Method Room Air Intake Visit Reasons: Edema-LVM Cut In Station Operator Required: No Accompanied by: Self / Same As Patient Allergies pollen extracts Allergy (Verified 05/01/24 14:15) Unknown HPI Comments Details: Manjit was seen in follow up for management of his edema and CKD 3 as well as hypertension. He has a BMI of 47 with hypertension, diabetes as well as sleep apnea among other medical issues. His serum albumin is 3.8 and Pro BNP is normal. He is not known to have any proteinuria. His Echocardiogram has been good. He denies excess sodium in the diet. His urine output is good. He claims to be compliant with his CPAP. He denies any chest pain, worsening shortness of breath, weight gain, urinary symptoms. He denies taking excessive nonsteroidal anti-inflammatories. His current diuretics are helping him with his lower extremity swelling [facility] Medical History HTN (hypertension) Type 2 diabetes mellitus with diabetic polyneuropathy Iron deficiency anemia Cirrhosis Severe persistent allergic asthma Foot drop, left Lumbar radiculopathy, chronic Abnormal ECG Obesity due to excess calories Hx of pancreatitis Acid reflux Elevated alkaline phosphatase measurement Asthma MAURIZIO on CPAP Morbid obesity Degeneration of L4-L5 intervertebral disc Diabetes Anemia Apnea, sleep Dyspnea on exertion Obstructive sleep apnea Surgical History Hx of cholecystectomy History of back surgery Family History Father Diabetes Hearing loss Mother CVD (cardiovascular disease) Thyroid condition Paternal Grandmother Diabetes Paternal Aunt Diabetes Sister No problems noted. Sister No problems noted. 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 Review of Systems Const All systems reviewed & are unremarkable except as noted in HPI and below Physical Exam Vital Signs: Last Vital Signs Pulse 98 05/01/24 14:15 BP 130/70 05/01/24 14:15 Pulse Ox 97 05/01/24 14:15 Oxygen Delivery Method Room Air 05/01/24 14:15 BMI result Body Mass Index 48.1 Const General: comfortable and no acute distress Orientation/consciousness: patient oriented x3 HEENT Head: Yes normocephalic Mouth: Normal oral and palatal mucosa present Eyes EOM: EOMs intact bilaterally Neck Neck: Yes supple Resp Auscultation: clear to auscultation bilaterally Cardio Jugular venous distension: no JVD Rate: regular rate GI Palpation (GI): Soft to palpation Auscultation: normal bowel sounds Skin General skin exam: no rashes or lesions noted Neuro General: patient oriented x3 and moves all extremities Results Reviewed Nephrology Results: Sodium 140 mmol/L (135-145) 04/30/24 Potassium 4.4 mmol/L (3.3-5.1) 04/30/24 Chloride 101 mmol/L (96-108) 04/30/24 Carbon Dioxide 31 mmol/L (22-29) H 04/30/24 BUN 14 mg/dL (9-16) 04/30/24 Creatinine 1.18 mg/dL (0.5-1.4) 04/30/24 Calcium 9.4 mg/dL (8.4-10.2) 01/29/24 Assessment & Plan Assessment & Plan (1) CKD stage 3a, GFR 45-59 ml/min: Code(s): N18.31 - Chronic kidney disease, stage 3a Category: Medical (2) Edema: Code(s): R60.9 - Edema, unspecified Category: Medical Qualifiers: Edema type: localized Qualified Code(s): R60.0 - Localized edema (3) HTN (hypertension): Code(s): I10 - Essential (primary) hypertension Category: Medical Qualifiers: Hypertension type: primary hypertension Qualified Code(s): I10 - Essential (primary) hypertension (4) Hyperuricemia: Code(s): E79.0 - Hyperuricemia without signs of inflammatory arthritis and tophaceous disease Category: Medical Plan Manjit has edema most likely due to multifactorial etiology. His Echocardiogram was OK. He is not known to have any proteinuria. His serum albumin was 3.8. His Pro BNP is normal. I reviewed his abdominal USS. His iron studies have been fine. He is on spironolactone. He can continue on bumetanide 2 mg daily.His uric acid is high. I started him on Allopurinol 100 mg daily. He is a candidate for Jardiance. He should minimize sodium in the diet and should get medical help to lose weight. He should avoid nonsteroidal anti-inflammatories. Answered all questions Orders: Orders Blood Urea Nitrogen 4 Months I10 - Essential (primary) hypertension, N18.31 - Chronic kidney disease, stage 3a, R60.0 - Localized edema Protein Creatinine Ratio, Ur 4 Months I10 - Essential (primary) hypertension, N18.31 - Chronic kidney disease, stage 3a, R60.0 - Localized edema Electrolytes 4 Months I10 - Essential (primary) hypertension, N18.31 - Chronic kidney disease, stage 3a, R60.0 - Localized edema Creatinine 4 Months I10 - Essential (primary) hypertension, N18.31 - Chronic kidney disease, stage 3a, R60.0 - Localized edema Medications: New allopurinol 100 mg PO DAILY 30 tabs 6RF Coding Level of Care Code Est Pt Level 4 (22514) Diagnoses CKD stage 3a, GFR 45-59 ml/min N18.31 Localized edema R60.0 Edema type: localized Primary hypertension I10 Hypertension type: primary hypertension Hyperuricemia E79.0
[2024-05-01 14:15] VITALS: BP 130/70; PULSE 98; O2SAT 97; BMI 48.1
--- OUTSIDE RECORDS SUMMARY | 2024-05-01 15:52 | XMS_ITS | Encounter Summary ---
Author Organization [employer] [facility] Address [address] [place] [address] 7 [place] [address] Care Team Providers Care Fsr Name Role Phone NameBeau MD Primary Care Provider [phone] Bambi Jauregui Unavailable Unavailable Mechelle Dumont RN Unavailable [phone] Reason for Visit * Reason Comments Med Refill Encounter Details Date Type Department Care Team (Late st Contact Info) Description 06/08/2022 Refill [facility] MEDICINE 230 [place], [place] [phone] NameBeau MD 230 [place] [address] Asthma, unspecified asthma severity, unspecified whether complicated, [...] persistent documented in this encounter Care Teams Fsr Relationship Specialty Start Date End Date NameBeau MD 230 [place] [address] PCP - General Family Medicine 06/01/15 Bambi Jauregui Community Health Worker 06/27/23 09/15/23 Mechelle Dumont RN [address] [place] [address] Manager Exchange 06/27/23 09/15/23 documented as of this encounter
--- OUTSIDE RECORDS SUMMARY | 2024-05-01 15:52 | XMS_ITS | Clinical Summary ---
Author Organization [facility] Address [address] [place] [address] Phone Care Team Providers Care Carburizer Name Role Phone Name, Beau FRANKS Primary Care Provider [phone] Medications albuterol (2.5 MG/3ML) 0.083% nebulizer solution [...] Insurance [place] Care Teams Carburizer Relationship Specialty Start Date End Date Name, MD Beau [address] [place] [address] PCP - General Internal Medicine 10/05/21
--- OUTSIDE RECORDS SUMMARY | 2024-05-01 15:52 | XMS_ITS | Encounter Summary ---
Author Organization [employer] [facility] Address [address] [place] [address] [address] Care Team Providers Care Operations Assistant Name Role Phone Name, Beau FRANKS Primary Care Provider Bambi Jauregui Unavailable Unavailable Mechelle Dumont RN Unavailable [phone] Reason for Visit * Reason Comments Med Refill Encounter Details Date Type Department Care Team (Late st Contact Info) Description 06/11/2022 Refill [facility] MEDICINE 230 [place], [place] [phone] NameBeau MD 230 [place] [address] Iron deficiency Social History Tobacco Use Types [...] metabolism documented in this encounter Care Teams Operations Assistant Relationship Specialty Start Date End Date Beau Stewart MD 230 [place] [address] PCP - General Family Medicine 06/01/15 Bambi Jauregui Community Health Worker 06/27/23 09/15/23 Mechelle Dumont, ISABEL [address] [facility] [address] Regional Loss Prevention Manager 06/27/23 09/15/23 documented as of this encounter
--- OUTSIDE RECORDS SUMMARY | 2024-05-01 15:52 | XMS_ITS | Encounter Summary ---
Author Organization [employer] Address [address] [facility] 7t [place] [address] Care Team Providers Care Coater Operator Insulation Board Name Role Phone Name, Beau FRANKS Primary Care Provider Reason for Visit * Reason Onset Date Comments Med Refill 04/08/2024 Encounter Details Date Type Department Care Team ([facility] st Contact Info) Description 04/08/2024 Refill [facility] MEDICINE 230 [place], [place] [phone] Name, MD Beau [address] [place] [address] Asthma, unspecified asthma severity, unspecified whether complicated, [...] Base) MCG/ACT inhaler To be sent to: [id number] [place], [place] - [address] [place] [address] documented in this encounter Plan of Treatment Not on file documented as of this encounter Visit Diagnoses Diagnosis Asthma, unspecified asthma severity, unspecified whether complicated, unspecified whether persistent documented in this encounter Additional Health Concerns Assessment Noted Time PHQ-9 Depression Total Score: 24 024 3:46 PM EST documented as of this encounter Care Teams Coater Operator Insulation Board Relationship Specialty Start Date End Date Name, MD Beau [address] [place] [address] PCP - General Family Medicine 06/01/15 documented as of this encounter
--- OUTSIDE RECORDS SUMMARY | 2024-05-01 15:52 | XMS_ITS | Encounter Summary ---
Author Organization [employer] [facility] Address [address] [place] [address] 7 [place] [address] Care Team Providers Care Cell Preparer Name Role Phone NameBeau MD Primary Care Provider [phone] Bambi Jauregui Unavailable Unavailable Mechelle Dumont RN Unavailable [phone] Reason for Visit * Reason Comments Med Refill Encounter Details Date Type Department Care Team (Late st Contact Info) Description 05/28/2022 Refill [facility] MEDICINE 230 [place], [place] [phone] NameBeau MD 230 [place] [address] Asthma, unspecified asthma severity, unspecified whether complicated, [...] persistent documented in this encounter Care Teams Cell Preparer Relationship Specialty Start Date End Date NameBeau MD 230 [place] [address] PCP - General Family Medicine 06/01/15 Bambi Jauregui Community Health Worker 06/27/23 09/15/23 Mechelle Dumont RN [address] [place] [address] Outbound Sales Representative 06/27/23 09/15/23 documented as of this encounter
--- OUTSIDE RECORDS SUMMARY | 2024-05-01 15:53 | XMS_ITS | Encounter Summary ---
Author Organization [employer] Address [address] [facility] 7t [place] [address] Care Team Providers Care Molder Vacuum Name Role Phone Name, Beau FRANKS Primary Care Provider [phone] Encounter Details Date Type Department Care Team ([facility] st Contact Info) Description 04/20/2024 11:00 AM EST Office Visit [facility] OPTOMETRY [address] [place] [address] Alvin, Florecita, OD [address] [place] [address] Presbyopia of both eyes (Primary Dx) Social [...] documented as of this encounter Care Teams Molder Vacuum Relationship Specialty Start Date End Date Name, MD Beau 230 [place] [address] PCP - General Family Medicine 06/01/15 documented as of this encounter
--- OUTSIDE RECORDS SUMMARY | 2024-05-01 15:53 | XMS_ITS | Encounter Summary ---
Author Organization [employer] Address [address] [facility] 7t [place] [address] Care Team Providers Care Flotation Tank Operator Name Role Phone Name, Beau FRANKS Primary Care Provider [phone] Reason for Visit * Reason Onset Date Comments Med Refill 10/04/2023 Encounter Details Date Type Department Care Team ([facility] st Contact Info) Description 10/04/2023 Telephone [facility] MEDICINE 230 [place], [place] [phone] Name, MD Beau [address] [place] [address] Med Refill Social History Tobacco Use Types [...] MG EC tablet [id number] [place], [place] - [address] [place] [address] documented in this encounter Plan of Treatment Not on file documented as of this encounter Visit Diagnoses Not on filedocumented in this encounter Additional Health Concerns Assessment Noted Time PHQ-9 Depression Total Score: 19 023 3:46 PM EDT documented as of this encounter Care Teams Flotation Tank Operator Relationship Specialty Start Date End Date Name, MD Beau [address] [place] [address] PCP - General Family Medicine 06/01/15 documented as of this encounter
--- OUTSIDE RECORDS SUMMARY | 2024-05-01 15:53 | XMS_ITS | Encounter Summary ---
Author Organization [employer] Address [address] [facility] 7t [place] [address] Care Team Providers Care Player Development Manager Name Role Phone Name, Beau FRANKS Primary Care Provider [phone] Reason for Visit * Reason Comments Med Refill Encounter Details Date Type Department Care Team ([facility] st Contact Info) Description 04/07/2024 Refill [facility]EDS [address] [place], [place] [phone] Felecia Gunderson NP [address] [place] [address] Polyneuropathy due to type 2 diabetes mellitus [...] documented as of this encounter Care Teams Player Development Manager Relationship Specialty Start Date End Date Name, MD Beau [address] [place] [address] PCP - General Family Medicine 06/01/15 documented as of this encounter
--- OUTSIDE RECORDS SUMMARY | 2024-05-01 15:53 | XMS_ITS | Encounter Summary ---
Author Organization [facility] [facility] Address [address] [place] [address] 7[place] [address] Care Team Providers Care Carbon Lamp Cleaner Name Role Phone Name, Beau FRANKS Primary Care Provider Bambi Jauregui Unavailable Unavailable Mechelle Dumont RN Unavailable [phone] Encounter Details Date Type Department Care Team (Late st Contact Info) Description 03/02/2022 Orders Only [facility] MEDICINE [address] [place] [address] Lelia Moeller RN [address] [place] [address] Social History Tobacco Use Types Packs/Day Years [...] on filedocumented in this encounter Care Teams Carbon Lamp Cleaner Relationship Specialty Start Date End Date Name, MD eBau 230 [place] [address] PCP - General Family Medicine 06/01/15 Bambi Jauregui Community Health Worker 06/27/23 09/15/23 Mechelle Dumont, ISABEL [address] [place] [address] Special Certificate Dictator 06/27/23 09/15/23 documented as of this encounter
--- OUTSIDE RECORDS SUMMARY | 2024-05-01 15:53 | XMS_ITS | Encounter Summary ---
Author Organization [employer] [facility] Address [address] [place] [address] 7t [place] [address] Care Team Providers Care Resident Medical Officer Name Role Phone Name, Beau FRANKS Primary Care Provider [phone] Bambi Jauregui Unavailable Unavailable Mechelle Dumont RN Unavailable [phone] Encounter Details Date Type Department Care Team ([facility] st Contact Info) Description 03/26/2022 Orders Only [facility] MED & PEDS [address] [place] [address] Kindra Woodall LPN Social History Tobacco Use [...] on filedocumented in this encounter Care Teams Resident Medical Officer Relationship Specialty Start Date End Date Name, MD Beau [address] [place] [address] PCP - General Family Medicine 06/01/15 Bambi Jauregui Community Health Worker 06/27/23 09/15/23 Mechelle Dumont, ISABEL [address] [place] [address] Cna Per Diem 06/27/23 09/15/23 documented as of this encounter
--- OUTSIDE RECORDS SUMMARY | 2024-05-01 15:53 | XMS_ITS | Encounter Summary ---
Author Organization [employer] Address [address] [facility] 7t [place] [address] Care Team Providers Care Maths Tutor Name Role Phone Name, Beau FRANKS Primary Care Provider [phone] Reason for Visit * Reason Comments Med Refill Encounter Details Date Type Department Care Team ([facility] st Contact Info) Description 04/07/2024 Refill [facility] MEDICINE 230 [place], [place] [phone] Name, MD Beau [address] [place] [address] Chronic pain syndrome Social History Tobacco Use [...] documented as of this encounter Care Teams Maths Tutor Relationship Specialty Start Date End Date Name, MD Beau 230 [place] [address] PCP - General Family Medicine 06/01/15 documented as of this encounter
--- OUTSIDE RECORDS SUMMARY | 2024-05-01 15:53 | XMS_ITS | Encounter Summary ---
Author Organization [employer] Address [address] [facility] 7t [place] [address] Care Team Providers Care Vault Cashier Name Role Phone Name, Beau FRANKS Primary Care Provider [phone] Bambi Jauregui Unavailable Unavailable Mechelle Dumont RN Unavailable [phone] Reason for Visit * Reason Comments Med Refill Encounter Details Date Type Department Care Team ([facility] st Contact Info) Description 06/10/2023 Refill [facility] MEDICINE 230 [place], [place] [phone] Name, MD Beau 230 [place], [place] [phone] Asthma, unspecified asthma severity, unspecified whether complicated, [...] documented as of this encounter Care Teams Vault Cashier Relationship Specialty Start Date End Date Name, MD Beau 230 [place] [address] PCP - General Family Medicine 06/01/15 Bambi Jauregui Community Health Worker 06/27/23 09/15/23 Mechelle Dumont RN [address] [place] [address] Director Of Marketing Operations 06/27/23 09/15/23 documented as of this encounter
--- OUTSIDE RECORDS SUMMARY | 2024-05-01 15:53 | XMS_ITS | Encounter Summary ---
Author Organization [employer] Address [address] [facility] 7t [place] [address] Care Team Providers Care Professor Of Psychiatry Name Role Phone Name, Beau FRANKS Primary Care Provider [phone] Reason for Visit * Reason Comments Med Refill Encounter Details Date Type Department Care Team ([facility] st Contact Info) Description 10/18/2023 Refill [facility] MEDICINE 230 [place], [place] [phone] Chiquis Harris MD 230 [place], [place] [phone] Iron deficiency Social History Tobacco Use Types [...] is your housing situation today? I have raceilcarrie galvez 12/18/[address] you [...] of this encounter Care Teams Professor Of Psychiatry Relationship Specialty Start Date End Date Name, MD Beau [address] [place] [address] PCP - General Family Medicine 06/01/15 documented as of this encounter
--- OUTSIDE RECORDS SUMMARY | 2024-05-01 15:53 | XMS_ITS | Encounter Summary ---
Author Organization [employer] Address [address] [facility] 7t [place] [address] Care Team Providers Care Resident Manager Name Role Phone Name, Beau FRANKS Primary Care Provider [phone] Bambi Jauregui Unavailable Unavailable Mechelle Dumont RN Unavailable [phone] Reason for Visit * Reason Comments Med Refill Encounter Details Date Type Department Care Team ([facility] st Contact Info) Description 06/13/2023 Refill [facility] MEDICINE 230 [place], [place] [phone] Name, MD Beau 230 [place], [place] [phone] Asthma, unspecified asthma severity, unspecified whether complicated, [...] documented as of this encounter Care Teams Resident Manager Relationship Specialty Start Date End Date Name, MD Beua [address] [place] [address] PCP - General Family Medicine 06/01/15 Bambi Jauregui Community Health Worker 06/27/23 09/15/23 Mechelle Dumont RN [address] [place] [address] Global Marketing Coordinator 06/27/23 09/15/23 documented as of this encounter
--- OUTSIDE RECORDS SUMMARY | 2024-05-01 15:53 | XMS_ITS | Encounter Summary ---
Author Organization [employer] [facility] Address [address] [place] [address] 7[address] [place] [address] Care Team Providers Care Television Maintenance Worker Name Role Phone Name, Beau FRANKS Primary Care Provider [phone] Bambi Jauregui Unavailable Unavailable Mechelle Dumont RN Unavailable [phone] Encounter Details Date Type Department Care Team (Late st Contact Info) Description 03/07/[address] [facility] MEDICINE [address] [place] [address] Ekaterina Pappas LPN Social History Tobacco Use [...] on filedocumented in this encounter Care Teams Television Maintenance Worker Relationship Specialty Start Date End Date Name, MD Beau [address] [place] [address] PCP - General Family Medicine 06/01/15 Bambi Jauregui Community Health Worker 06/27/23 09/15/23 Mechelle Dumont, ISABEL [address] [place] [address] Doctor Assistant 06/27/23 09/15/23 documented as of this encounter
--- OUTSIDE RECORDS SUMMARY | 2024-05-01 15:53 | XMS_ITS | Encounter Summary ---
Author Organization [employer] Address [address] [place] [address] 7t [place] [address] Care Team Providers Care Life Skills Coordinator Volunteer Name Role Phone Name, Beau FRANKS Primary Care Provider [phone] Bambi Jauregui Unavailable Unavailable Mechelle Dumont RN Unavailable [phone] Reason for Visit * Reason Onset Date Comments Med Refill 08/21/2022 Encounter Details Date Type Department Care Team (Late st Contact Info) Description 08/21/2022 Telephone [facility] MEDICINE [address] [place] [address] Name, MD Beau [address] [place] [address] Med Refill Social History Tobacco Use Types [...] on filedocumented in this encounter Care Teams Life Skills Coordinator Volunteer Relationship Specialty Start Date End Date Name, MD Beau [address] [place] [address] PCP - General Family Medicine 06/01/15 Bambi Jauregui Community Health Worker 06/27/23 09/15/23 Mechelle Dumont RN [address] [place] [address] Cigarette Stamper 06/27/23 09/15/23 documented as of this encounter
--- OUTSIDE RECORDS SUMMARY | 2024-05-01 15:53 | XMS_ITS | Encounter Summary ---
Author Organization [employer] Address [address] [facility] 7t [place] [address] Care Team Providers Care President + Publisher Name Role Phone Name, Beau FRANKS Primary Care Provider [phone] Reason for Visit * Reason Comments Med Refill Encounter Details Date Type Department Care Team ([facility] st Contact Info) Description 09/19/2023 Refill [facility] MEDICINE [address] [place], [place] [phone] Name, MD Beau [address] [place], [place] [phone] Erectile dysfunction, unspecified erectile dysfunction type Social [...] documented as of this encounter Care Teams President + Publisher Relationship Specialty Start Date End Date Name, MD Beau [address] [place] [address] PCP - General Family Medicine 06/01/15 documented as of this encounter
--- OUTSIDE RECORDS SUMMARY | 2024-05-01 15:53 | XMS_ITS | Encounter Summary ---
Author Organization [employer] Address [address] [facility] 7t [place] [address] Care Team Providers Care Restaurant Mgr Name Role Phone Name, Beau FRANKS Primary Care Provider [phone] Reason for Visit * Reason Comments Med Refill Encounter Details Date Type Department Care Team ([facility] st Contact Info) Description 10/04/2023 Refill [facility] MEDICINE [address] [place], [place] [phone] Name, MD Beau 230 [place] [address] Social History Tobacco Use Types Packs/Day Years [...] documented as of this encounter Care Teams Restaurant Mgr Relationship Specialty Start Date End Date Name, MD Beau [address] [place] [address] PCP - General Family Medicine 06/01/15 documented as of this encounter
--- OUTSIDE RECORDS SUMMARY | 2024-05-01 15:53 | XMS_ITS | Clinical Summary ---
Author Organization [employer] Address [address] [place] [address] 7t [place] [address] Care Team Providers Care Parking Meter Mechanic Name Role Phone Name, Beau FRANKS Primary Care Provider [phone] Allergies Active Allergy Reactions Criticality Noted Date [...] it until Saturday when he will see field hockey coach, as much as possible, I gave him [...] associa florentino with type 2 diabetes mellitus ([facility]) 04/05/2017 Essential hypertension 09/27/2015 Obstructive sleep apnea syndrome 07/22/2013 Polyp of gallbladder 07/01/2012 Steatosis of liver 07/01/2012 Abnormal LFTs 06/17/2012 Anemia 06/17/2012 Foot pain 06/17/2012 Vitamin D deficiency 06/17/2012 Tinea pedis 11/23/2011 Lumbar post-laminectomy syndrome 09/24/2011 Moderate asthma without complication 08/08/2011 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 Encounters Date Type Department Care Team Description 04/30/2024 Orders Only GENERIC EXTERNAL DATA DEPARTMENT Provider, Generic External Data 04/29/[address] [facility] MEDICINE [address] [place] [address] Name, MD Beau 04/20/2024 11:00 AM EST Office Visit [facility] OPTOMETRY [address] [place] [address] Alvin, Florecita, OD Presbyopia of both eyes (Primary Dx) 04/08/[address] [facility] MEDICINE [address] [place] [address] Beau Stewart MD Asthma, unspecified asthma severity, unspecified whether complicated, unspecified whether persistent 04/07/[address] [facility] MED & PEDS [address] [place] [address] Felecia Gunderson NP Polyneuropathy due to type 2 diabetes mellitus ([facility]); Chronic pain syndrome 04/07/[address] [facility] MEDICINE [address] [place] [address] Beau Stewart MD Chronic pain syndrome 04/07/[address] [facility] MEDICINE [address] [place] [address] Laura Russell MD Asthma, unspecified asthma severity, unspecified whether complicated, unspecified whether persistent 04/01/[address] [facility] MEDICINE [address] [place] [address] Beau Stewart MD 03/31/2024 Orders Only GENERIC EXTERNAL DATA DEPARTMENT Provider, Generic External Data 03/27/2024 12:00 PM EST Office Visit [facility] [address] [place] [address] Yesica Rodriguez MD Avulsion of toenail, initial encounter (Primary Dx) 03/27/[address] [facility] MEDICINE [address] [place] [address] Beau Stewart MD Nurse Triage 03/26/[address] [facility] MEDICINE [address] [place] [address] Beau Stewart MD Seborrheic dermatitis 03/14/[address] [facility] [address] [place] [address] Beau Stewart MD Asthma, unspecified asthma severity, unspecified whether complicated, unspecified whether persistent 03/13/[address] [facility] MEDICINE [address] [place] [address] Beau Stewart MD 03/08/[address] [facility] [address] [place] [address] NameBeau MD Polyneuropathy due to type 2 diabetes mellitus ([facility]) 03/05/2024 2:00 PM EST Office Visit [facility] OPTOMETRY [address] [place] [address] Kevin Gracie, OD Mild nonproliferative diabetic retinopathy of both eyes without macular edema associated with type 2 diabetes mellitus ([facility]) (Primary Dx); Keratoconus of both eyes; Presbyopia of both eyes 03/05/2024 Travel 03/03/[address] [facility] MEDICINE [address] [place] [address] Erlinda Swain MA mar recalls 03/03/[address] [facility] MEDICINE [address] [place] [address] Beau Stewart MD Asthma, unspecified asthma severity, unspecified whether complicated, unspecified whether persistent 02/17/2024 Orders Only GENERIC EXTERNAL DATA DEPARTMENT Provider, Generic External Data 02/02/[address] [facility] MEDICINE [address] [place] [address] Beau Stewart MD Asthma, unspecified asthma severity, [...] Creatinine, Serum 1.18 0.5 - 1.4 mg/dL [facility] Estimated Glomerular Filt Rate >60 [facility] Comment:Chronic Kidney Disea se: Estimated GFR < 60 mL/min/1.69j2Ctynbr Kidney Disease: Estimated GFR < 15 mL/min/1.73m2 04/30/2024 4:21 PM EST 04/30/2024 4:21 PM EST us Generic External Data Provider LAB BLOOD ORDERAB LES Final Result [facility] [address] [place] [phone] * (ABNORMAL) Uric acid (04/30/2024 4:21 PM EST) Uric Acid 7.3(H) 3.4 - 7.0 mg/dL [facility] 04/30/2024 4:21 PM EST 04/30/2024 4:21 PM EST Generic External Data Provider LAB BLOOD ORDERAB LES Final Result Performing Organization Address [facility] Co de Phone Number [facility] [address] [place] [phone] * BUN (Blood Urea Nitrogen) (04/30/2024 4:21 PM EST) Only the most recent of2 resultswithin the time period is included. Urea Nitrogen (BUN) 14 9 - 16 mg/dL [facility] 04/30/2024 4:21 PM EST 04/30/2024 4:21 PM EST Generic External Data Provider LAB BLOOD ORDERAB LES Final Result Performing Organization Address [facility] Phone Number [facility] [address] [place] [phone] * (ABNORMAL) Electrolyte Panel (04/30/2024 4:21 PM EST) Only the most recent of2 resultswithin the time period is included. Sodium 140 135 - 145 mmol/L [facility] Potassium 4.4 3.3 - 5.1 mmol/L [facility] Chloride 101 96 - 108 mmol/L [facility] Carbon Dioxide 31(H) 22 - 29 mmol/L [facility] Anion Gap 12 12 - 20 [facility] 04/30/2024 4:21 PM EST 04/30/2024 4:21 PM EST Generic External Data Provider LAB BLOOD ORDERAB LES Final Result Performing Organization Address [facility] Co de Phone Number [facility] [address] [place] [phone] * (ABNORMAL) Glucose, Whole Blood (02/17/2024 1:55 PM EST) Glucose, Whole Blood 157(H) 60 - 115 mg/dL [facility] Comment:METER #: [id number] 5Testing performed in the Endocrinology Department [address] , [address], [facility]. 02/17/2024 1:55 PM EST 02/17/2024 1:58 PM EST us Generic External Data Provider LAB BLOOD ORDERAB LES Final Result Performing Organization Address City/[facility]/ZIP Co de Phone Number [facility] [address] [place] [phone] * (ABNORMAL) Hemoglobin A1c (01/01/2024 2:50 PM EST) Hemoglobin A1c 7.0(H) <6.0 % [facility] Comment:Hemoglobin A1C Refer ence Range Adults: 4.8 - 6.0 % Non diabetic: < 6.0 % Goal: < 7.0 %Additional Action Suggested: > 8.0 %Note: Hemoglobin A1c results are invalid for patients with abnormal amounts of HbF. Blood transfusions may impact the HbA1c concentration in the patient sample. Estimated Average Glucose 154 mg/dL [facility] Comment:eAG = Estimated ave rage glucose which is %A1C expressed asaverage glucose, using the formula of the [id number] Glucose study (ADAG), Diabetes Care, Vol.31,#8,Aug. 2007 01/01/2024 2:50 PM EST 01/01/2024 2:50 PM EST us Generic External Data Provider LAB BLOOD ORDERAB LES Final Result Performing Organization Address [facility]/ZIP Co de Phone Number [facility] [address] [place] [phone] * Hepatitis C Antibody with Reflex to HCV, RNA, Quantitative, Real-Time PCR (11/06/2023 3:26 PM EDT) Hepatitis C Antibody Nonreactive Nonreactive [facility] Comment:Antibodies to HCV no t detected; does not exclude early acuteHCV infection. Blood Venous blood specimen / Unknown 11/06/2023 3:26 PM EDT 11/06/2023 3:58 PM EDT Beau Stewart MD LAB BLOOD ORDERABLES Final Resul t Performing Organization Address [facility]/ZIP Co de Phone Number [facility] [address] [place] [phone] * Albumin, Random Urine W/Creatinine (07/25/2023 2:20 PM EDT) Pathologist [facility] Creatinine, Urine 18.16 mg/dL [facility] Microalbumin Urine <5.0 mg/L [facility] Microalbum Creatinine Ratio Ur TNP <30 ug/mg cr [facility] Comment:Unable to calculate albumin/creatinine ratio due to lowmicroalbumin or creatinine result. 07/25/2023 2:20 PM EDT 07/25/2023 4:07 PM EDT us Generic External Data Provider LAB URINE ORDERAB LES Final Result Performing Organization Address [facility] de Phone Number [facility] [address] [place] [phone] * (ABNORMAL) Lipid Panel, Standard (03/20/2023 2:08 PM EST) Triglycerides 159(H) <150 mg/dL [facility] Comment:Desirable Triglyceri de: less than 150 mg/dLBorderline High Triglyceride 150-199 mg/dLHigh Triglyceride: 200-499 mg/dLVery High Triglyceride: greater than or equal to 5OO mg/dL Cholesterol 134 <200 mg/dL [facility] Comment:Desirable Cholestero l: less than 200 mg/dLBorderline High Cholesterol: 200-239 mg/dLHigh Cholesterol: greater than 239 mg/dL LDL Cholesterol Calculated 65 <100 mg/dL [facility] Comment:Desirable LDL: less than 100 mg/dLNear Optimal/Above Optimal LDL: 110- 129 mg/dLBorderline High LDL: 130-159 mg/dLHigh LDL: 160-189 mg/dLVery High LDL: greater than or equal to 190 mg/dL HDL Cholesterol 38(L) >40 mg/dL [facility] Comment:Desirable HDL: great er than 40 mg/dL Note: This HDL assay may give artificially low results in patients with liver disease. 03/20/2023 2:08 PM EST 03/20/2023 2:09 PM EST us Generic External Data Provider LAB BLOOD ORDERAB LES Final Result [facility] [address] [place] [phone] [phone] * Colonoscopy (06/09/2020 2:16 PM EDT) Colonoscopy Normal Normal Narrative Radha Aviles - 06/09/2020 2:16 PM EDT Recommended 10 year follow up ([facility] us Historical Provider HEALTH MAINTENANCE Final Result from Last 3 Months or Most Recently Relevant to Health Maintenance Insurance [facility] STAND ADULT Care Teams Parking Meter Mechanic Relationship Specialty Start Date End Date Name, MD Beau [address] [place] [address] PCP - General Family Medicine 06/01/15
--- OUTSIDE RECORDS SUMMARY | 2024-05-01 15:53 | XMS_ITS | Encounter Summary ---
Author Organization [employer] [facility] Address [address] [place] [address] 7[place] [address] Care Team Providers Care Engine Installer Name Role Phone Name, Beau FRANKS Primary Care Provider [phone] Bambi Jauregui Unavailable Unavailable Mechelle Dumont RN Unavailable [phone] Encounter Details Date Type Department Care Team (Late st Contact Info) Description 02/28/2022 Orders Only [facility] CH[facility] MED & PEDS [address] [place] [address] Kindra Woodall LPN Social History Tobacco Use [...] on filedocumented in this encounter Care Teams Engine Installer Relationship Specialty Start Date End Date Name, MD Beau [address] [place] [address] PCP - General Family Medicine 06/01/15 Bambi Jauregui Community Health Worker 06/27/23 09/15/23 Mechelle Dumont, ISABEL [address] [place] [address] Terra Cotta Setter 06/27/23 09/15/23 documented as of this encounter
--- OUTSIDE RECORDS SUMMARY | 2024-05-01 15:53 | XMS_ITS | Encounter Summary ---
Author Organization [employer] Address [address] [place] [address] 7[place] [address] Care Team Providers Care Medical Billing Clerk Name Role Phone Name, Beau FRANKS Primary Care Provider [phone] Bambi Jauregui Unavailable Unavailable Mechelle Dumont RN Unavailable Reason for Visit * Reason Onset Date Comments PT1 11/14/2022 Encounter Details Date Type Department Care Team (Late st Contact Info) Description 11/14/2022 Telephone [facility] MEDICINE [address] [place] [address] Name, MD Beau [address] [place] [address] PT1 Social History Tobacco Use Types Packs/Day [...] 10:01 AM EDT Allergy PT-1 Request Number [id number] is Pending Dr Salazar PT-1 Request Number [id number] is Pending Ortho PT-1 Request Number [id number] is Pending Pt has an active PT1 for HHC * Telephone Encounter - Melva Nunez - 11/14/2022 3:57 PM EDT PT1 Address verified Date: 11/20/22 Time: 2 pm Visits: Address: [address] [place] [address] Facility: Allergy Injection Wheel Chair: n/a Dowel Maker Needed: no PT1 Date: 12/05/22 Time: 11:30 am Visits: Address: [address] [place] [address] Facility: Orthopedic Wheel Chair: n/a Dowel Maker Needed: no PT1 Date: 12/07/22 Time: 11:15 am Visits: Address: [address] [place] Facility: PCP Wheel Chair: n/a Dowel Maker Needed: no PT1 Date: 12/07/22 Time: 2:30 pm Visits: Address: [address] [place] [address] [place] [address] Facility: Dr. Salazar Wheel Chair: n/a Dowel Maker Needed: no documented in this encounter Plan of Treatment Not on file documented as of this encounter Visit Diagnoses Not on filedocumented in this encounter Care Teams Medical Billing Clerk Relationship Specialty Start Date End Date Name, MD Beau [address] [place] [address] PCP - General Family Medicine 06/01/15 Bambi Jauregui Community Health Worker 06/27/23 09/15/23 Mechelle Dumont RN [address] [place] [address] Senior Accountant Cpa 06/27/23 09/15/23 documented as of this encounter
--- OUTSIDE RECORDS SUMMARY | 2024-05-01 15:53 | XMS_ITS | Encounter Summary ---
Author Organization [employer] Address [address] [facility] 7t [place] [address] Care Team Providers Care Wet Process Miller Head Name Role Phone Name, Beau FRANKS Primary Care Provider [phone] Encounter Details Date Type Department Care Team [...] Uric Acid 7.3(H) 3.4 - 7.0 mg/dL [facility] 04/30/2024 4:21 PM EST 04/30/2024 4:21 PM EST us Generic External Data Provider LAB BLOOD ORDERAB LES Final Result [facility] [address] [place] [phone] * Creatinine, Serum (04/30/2024 4:21 PM EST) Creatinine, Serum 1.18 0.5 - 1.4 mg/dL [facility] Estimated Glomerular Filt Rate >60 [facility] Comment:Chronic Kidney Disea se: Estimated GFR < 60 mL/min/[id number] Kidney Disease: Estimated GFR < 15 mL/min/1.73m2 04/30/2024 4:21 PM EST 04/30/2024 4:21 PM EST us Generic External Data Provider LAB BLOOD ORDERAB LES Final Result Performing Organization Address [facility] Co de Phone Number [facility] [address] [place] [phone] [phone] * BUN (Blood Urea Nitrogen) (04/30/2024 4:21 PM EST) Urea Nitrogen (BUN) 14 9 - 16 mg/dL [facility] 04/30/2024 4:21 PM EST 04/30/2024 4:21 PM EST us Generic External Data Provider LAB BLOOD ORDERAB LES Final Result Performing Organization Address [facility] Co de Phone Number [facility] [address] [place] [phone] * (ABNORMAL) Electrolyte Panel (04/30/2024 4:21 PM EST) Sodium 140 135 - 145 mmol/L [facility] Potassium 4.4 3.3 - 5.1 mmol/L [facility] Chloride 101 96 - 108 mmol/L [facility] Carbon Dioxide 31(H) 22 - 29 mmol/L [facility] Anion Gap 12 12 - 20 [facility] 04/30/2024 4:21 PM EST 04/30/2024 4:21 PM EST Generic External Data Provider LAB BLOOD ORDERAB LES Final Result Performing Organization Address [facility] Co de Phone Number [facility] [address] [place] [phone] documented in this encounter Visit Diagnoses Not on filedocumented in this encounter Additional Health Concerns Assessment Noted Time PHQ-9 Depression Total Score: 24 024 3:46 PM EST documented as of this encounter Care Teams Wet Process Miller Head Relationship Specialty Start Date End Date Name, MD Beau [address] [place] [address] PCP - General Family Medicine 06/01/15 documented as of this encounter
--- OUTSIDE RECORDS SUMMARY | 2024-05-01 15:53 | XMS_ITS | Encounter Summary ---
Author Organization [employer] Address [address] [facility] 7t [place] [address] Care Team Providers Care Senior Ui Ux Developer Name Role Phone Name, Beau FRANKS Primary Care Provider [phone] Reason for Visit * Reason Comments Med Refill Encounter Details Date Type Department Care Team ([facility] st Contact Info) Description 04/07/2024 Refill [facility] MEDICINE [address] [place], [place] [phone] Laura Russell MD [address] [place] [address] Asthma, unspecified asthma severity, unspecified whether complicated, [...] as of this encounter Care Teams Senior Ui Ux Developer Relationship Specialty Start Date End Date Name, MD Beau [address] [place] [address] PCP - General Family Medicine 06/01/15 documented as of this encounter
--- OUTSIDE RECORDS SUMMARY | 2024-05-01 15:53 | XMS_ITS | Encounter Summary ---
Author Organization [employer] Address [address] [facility] 7t [place] [address] Care Team Providers Care Transport Assistant Name Role Phone Name, Beau FRANKS Primary Care Provider [phone] Reason for Visit * Reason Comments Med Refill Encounter Details Date Type Department Care Team ([facility] st Contact Info) Description 04/01/2024 Refill [facility] MEDICINE [address] [place], [place] [phone] Name, MD Beau [address] [place] [address] Social History Tobacco Use Types Packs/Day Years [...] documented as of this encounter Care Teams Transport Assistant Relationship Specialty Start Date End Date Name, MD Beau [address] [place] [address] PCP - General Family Medicine 06/01/15 documented as of this encounter
--- OUTSIDE RECORDS SUMMARY | 2024-05-01 15:53 | XMS_ITS | Encounter Summary ---
Author Organization [employer] Address [address] [facility] 7t [place] [address] Care Team Providers Care Job Hand Name Role Phone Name, Beau FRANKS Primary Care Provider [phone] Bmabi Jauregui Unavailable Unavailable Mechelle Dumont RN Unavailable [phone] Reason for Visit * Reason Comments Med Refill Encounter Details Date Type Department Care Team ([facility] st Contact Info) Description 01/31/2023 Refill [facility] MED & PEDS [address] [place] [address] Name, MD Beau [address] [place] [address] Asthma, unspecified asthma severity, unspecified whether complicated, [...] documented as of this encounter Care Teams Job Hand Relationship Specialty Start Date End Date Name, MD Beau [address] [place] [address] PCP - General Family Medicine 06/01/15 Bambi Jauregui Community Health Worker 06/27/23 09/15/23 Mechelle Dumont RN [address] [place] [phone] Photoengraving Finisher 06/27/23 09/15/23 documented as of this encounter
--- OUTSIDE RECORDS SUMMARY | 2024-05-01 15:53 | XMS_ITS | Encounter Summary ---
Author Organization [employer] Address [address] [facility] 7t [place] [address] Care Team Providers Care Whey Department Operator Name Role Phone Name, Beau FRANKS Primary Care Provider [phone] Reason for Visit * Reason Comments Med Refill Encounter Details Date Type Department Care Team ([facility] st Contact Info) Description 04/29/2024 Refill [facility] MEDICINE [address] [place], [place] [phone] Name, MD Beau [address] [place] [address] Social History Tobacco Use Types Packs/Day Years [...] documented as of this encounter Care Teams Whey Department Operator Relationship Specialty Start Date End Date Name, MD Beau [address] [place] [address] PCP - General Family Medicine 06/01/15 documented as of this encounter
--- OUTSIDE RECORDS SUMMARY | 2024-05-01 15:53 | XMS_ITS | Encounter Summary ---
Author Organization [email or web address] Address [address] [facility] 7t [place] [address] Care Team Providers Care Safety Belt Installer Name Role Phone Name, Beau FRANKS Primary Care Provider [phone] Bambi Jauregui Unavailable Unavailable Mechelle Dumont RN Unavailable [phone] Reason for Visit * Reason Comments Med Refill Encounter Details Date Type Department Care Team ([facility] st Contact Info) Description 02/21/2023 Refill [facility] MEDICINE [address] [place] [address] Name, MD Beau [address] [place] [address] Chronic pain syndrome Social History Tobacco Use [...] documented as of this encounter Care Teams Safety Belt Installer Relationship Specialty Start Date End Date Name, MD Beau [address] [place] [address] PCP - General Family Medicine 06/01/15 Bambi Jauregui Community Health Worker 06/27/23 09/15/23 Mechelle Dumont, ISABEL [address] [place] [address] Credentialer 06/27/23 09/15/23 documented as of this encounter
--- OUTSIDE RECORDS SUMMARY | 2024-05-01 15:53 | XMS_ITS | Encounter Summary ---
Author Organization [employer] Address [address] [facility] 7t [place] [address] Care Team Providers Care Director Decision Support Name Role Phone Name, Beau FRANKS Primary Care Provider [phone] Bambi Jauregui Unavailable Unavailable Mechelle Dumont RN Unavailable [phone] Encounter Details Date Type Department Care Team (Late st Contact Info) Description 04/08/2023 Orders Only [facility] & [facility]EDS [address] [place] [address] Ekaterina Pappas LPN Social History Tobacco Use [...] documented as of this encounter Care Teams Director Decision Support Relationship Specialty Start Date End Date Name, MD Beau [address] [place] [id number] PCP - General Family Medicine 06/01/15 Bambi Jauregui Community Health Worker 06/27/23 09/15/23 Mechelle Dumont RN [address] [place] [id number] Floor Broker 06/27/23 09/15/23 documented as of this encounter
--- OUTSIDE RECORDS SUMMARY | 2024-05-01 15:53 | XMS_ITS | Encounter Summary ---
Author Organization [employer] [facility] Address [address] [place] [address] [address] [place] [address] Care Team Providers Care Supervisor Sawing And Assembly Name Role Phone Name, Beau FRANKS Primary Care Provider [phone] Bambi Jauregui Unavailable Unavailable Mechelle Dumont RN Unavailable [phone] Encounter Details Date Type Department Care Team (Late st Contact Info) Description 07/02/2022 Orders Only [facility] MEDICINE [address] [place] [address] Ekaterina Pappas LPN Social History Tobacco Use [...] on filedocumented in this encounter Care Teams Supervisor Sawing And Assembly Relationship Specialty Start Date End Date Name, MD Beau [address] [place] [address] PCP - General Family Medicine 06/01/15 Bambi Jauregui Community Health Worker 06/27/23 09/15/23 Mechelle Dumont RN [address] [place] [id number] Software Configuration Specialist 06/27/23 09/15/23 documented as of this encounter
--- OUTSIDE RECORDS SUMMARY | 2024-05-01 15:53 | XMS_ITS | Encounter Summary ---
Author Organization [employer] Address [address] [place] [address] 7t [place] [address] Care Team Providers Care Tire Manager Name Role Phone Name, Beau FRANKS Primary Care Provider [phone] Bambi Jauregui Unavailable Unavailable Mechelle Dumont RN Unavailable [phone] Encounter Details Date Type Department Care Team (Late st Contact Info) Description 08/06/2022 Abstract [facility] MEDICINE [address] [place] [address] Name, MD Beau [address] [place] [address] Social History Tobacco Use Types Packs/Day Years [...] PM EDT Recommended 10 year follow up [place] us Historical Provider HEALTH MAINTENANCE Final Result documented in this encounter Visit Diagnoses Not on filedocumented in this encounter Care Teams Tire Manager Relationship Specialty Start Date End Date Name, MD Beau [address] [place] [address] PCP - General Family Medicine 06/01/15 Bambi Jauregui Community Health Worker 06/27/23 09/15/23 Mechelle Dumont RN [address] [place] [address] Bilingual Patient Support Caseworker 06/27/23 09/15/23 documented as of this encounter
== END 2024-05-01 14:26 | disposition home or self-care (01) ==
PROVIDERS: PCP Internal Medicine Geriatric Medicine; Visit Provider Internal Medicine Nephrology
DX: N18.31 Chronic kidney disease, stage 3a (principal); R60.0 Localized edema; I10 Essential (primary) hypertension; E79.0 Hyperuricemia without signs of inflammatory arthritis and tophaceous disease
CPT/HCPCS: 99214

== ENCOUNTER → 2024-05-01 14:12 | Outpatient (BNVA) | payer MEDICAID, SELFPAY | PROVIDERS: PCP Internal Medicine Geriatric Medicine; Visit Provider Internal Medicine Nephrology | DX: R60.0 Localized edema (principal); I12.9 Hypertensive chronic kidney disease with stage 1 through stage 4 chronic kidney disease, or unspecified chronic kidney disease; E11.42 Type 2 diabetes mellitus with diabetic polyneuropathy; N18.31 Chronic kidney disease, stage 3a; E79.0 Hyperuricemia without signs of inflammatory arthritis and tophaceous disease | CPT/HCPCS: 99212 ==

== ENCOUNTER 2024-05-14 12:40 | Outpatient (REF) | payer MEDICAID, SELFPAY ==
[2024-05-14 14:27] LABS: MANUAL DIFF FLAG NO
[2024-05-14 15:12] LABS: Basophils Percent Auto 0.3 % (0-2); Hematocrit 30.8 % (42.0-52.0); Hemoglobin 9.3 g/dl (14.0-18.0); Imm Gran Abs Auto 0.03 X10*3/uL (0.00-0.03); Imm Gran Pct Auto 0.4 % (0.0-0.4); Lymphocytes Absolute Auto 1.7 X10*3/uL (1.2-4.9); Lymphocytes Percent Auto 25.8 % (20-40); Mean Corpuscular HGB Conc 30.2 g/dl (31.0-36.0); Mean Corpuscular Volume 76.2 fL (80.0-98.0); Mean Platelet Volume 9.3 fL (9.4-12.4); Monocytes Absolute Auto 0.4 X10*3/uL (0.1-1.2); Monocytes Percent Auto 6.2 % (2-11); Neutrophils Absolute Auto 4.5 x10*3/uL (2.0-8.3); Neutrophils Percent Auto 67.3 % (45-73); Platelet Count 314 X10*3/uL (160-400); Red Blood Count 4.04 X10*6/uL (4.60-5.80); Red Cell Distribution Width 15.4 % (11.0-16.0); White Blood Count 6.8 X10*3/uL (4.8-10.8)
[2024-05-14 16:13] LABS: Alanine Aminotransferase 22 U/L (0-40); Albumin Level 3.4 g/dL (3.5-5.0); Alkaline Phosphatase 164 U/L (39-117); Anion Gap 10 (12-20); Aspartate Amino Transferase 29 U/L (5-37); Bilirubin Total 0.2 mg/dL (0.0-1.0); Blood Urea Nitrogen 12 mg/dL (9-16); Calcium 8.2 mg/dL (8.4-10.2); Carbon Dioxide 28 mmol/L (22-29); Chloride 103 mmol/L (96-108); Estimated Glomerular Filt Rate > 60; Glucose Random 185 mg/dL (60-115); Potassium 3.7 mmol/L (3.3-5.1); Sodium 137 mmol/L (135-145); Total Protein 7.1 g/dL (6.5-8.0)
[2024-05-14 16:28] LABS: Ferritin 10 ng/mL (20-250); Vitamin D 25-OH Total 30.2 ng/mL (>30)
== END 2024-05-14 12:41 | disposition home or self-care (01) ==
LOC: HO.LAB 12:40
PROVIDERS: PCP Internal Medicine Geriatric Medicine; Visit Provider Internal Medicine Gastroenterology
DX: K52.9 Noninfective gastroenteritis and colitis, unspecified (principal); R79.89 Other specified abnormal findings of blood chemistry; K22.10 Ulcer of esophagus without bleeding; K85.10 Biliary acute pancreatitis without necrosis or infection; R14.0 Abdominal distension (gaseous); D64.9 Anemia, unspecified
CPT/HCPCS: 36415; 80053; 82306; 82728; 85025; 99212

== ENCOUNTER 2024-05-14 12:40 | Outpatient (AMB) | payer MEDICAID, SELFPAY ==
--- NOTE | 2024-05-14 12:45 | MHC.OFFVIS ---
Vital Signs 05/14/24 12:46 Height 5 ft 6 in Weight 298 lb BMI 48.1 BP 140/54 H Blood Pressure Location Lt brachial Position Sitting Pulse 92 Pulse Oximetry (%) 97 Oxygen Delivery Method Room Air Intake Visit Reasons: 4 mnth follow up Intake Note: Patient follow up for Anemia and lab results. Patient cc: tiredness all the time, and abdominal bloating with discomfort and gassy. Baton Twirler Required: No Accompanied by: Self / Same As Patient Allergies pollen extracts Allergy (Verified 09/15/24 14:33) Unknown Medication List - Last Reconciled 05/14/24 by Kike Childress MD acetaminophen 500 mg PO Q6H PRN albuterol sulfate 90 mcg/actuation (Ventolin HFA) 2 puffs inhalation Q4-6H PRN allopurinol 100 mg PO DAILY bumetanide 2 mg (2 x 1 mg) PO DAILY 30 days calcium carbonate (Calcium Antacid) mg PO TID diclofenac sodium 1% 2 grams topical QID PRN flash glucose sensor (hhgreggStyle Monty 2 Sensor kit) USE DIRECTED. CHANGE EVERY 14 DAYS fluticasone furoate 200 mcg/actuation (Arnuity Ellipta) 1 inh inhalation DAILY fluticasone furoate-vilanterol 200-25 mcg/dose (Breo Ellipta) 1 inh inhalation DAILY gabapentin 300 mg PO TID glimepiride 2 mg PO DAILY glucose (Dex4 Glucose) 16 grams (4 x 4 gram) PO Q15M PRN 30 days insulin glargine (Lantus U-100 Insulin) 78 units subcut BID insulin lispro 28 units subcut TID lisinopril 40 mg PO DAILY magnesium oxide 400 mg PO TID metformin ER 500 mg PO BID omeprazole 20 mg PO BID pen needle, diabetic (BD Savannah 2nd Gen Pen Needle) Use BID As directed pravastatin 20 mg PO BEDTIME sodium chloride 0.9% 3 mL inhalation 6XD PRN spironolactone 25 mg PO DAILY tadalafil (Cialis) 5 mg PO DAILY 90 days tadalafil (Cialis) 20 mg PO .PRN PRN 90 days HPI HPI 4 mnth follow up: Details: GI clinic visit for this 54 YM with morbid obesity, severe persistent asthma, type 2 diabetes mellitus on insulin, HFpEF, depression, obstructive sleep apnea and hypertension here to review EGD results TODAY'S VISIT: Patient follow up for Anemia and lab results. Patient cc: tiredness all the time, and abdominal bloating with discomfort and gassy. Pt reports diarrhea resolved after dose of metformin was decreased. Has a BM 1-3 times a day - hard in the morning and a little softer later in the day. Notes a lot of gas on some days. PAST VISIT: He does have diarrhea every now and again - very watery stools 4 times a day. Complains of intermittent diarrhea which comes and goes - 1-2 days per week. Has 3-5 BMs watery BMs a day on days he has the diarrhea. Unsure if any foods are causing the diarrhea. Denies association of diarrhea with milk products Notes generalized cramps - hand, feet and body and sometimes in the stomach Patient denies symptoms of heartburn, dysphagia, nausea, vomiting, change in appetite or weight. Denies recent change in bowel habits, constipation, black stools or rectal bleeding. Pt denies smoking or ETOH or Marijuana use. Patient has asthma and hypertension and denies major cardiac problems, Pt has sleep apnea and uses a CPAP machine Denies problems with anesthesia in the past. Denies being on chronic anticoagulation. Patient denies known family history of IBD, colon polyps, colon cancer or other GI malignancies. PAST VISITS: Patient cc: abdominal bloating with diarrhea. EGD results reviewed with the patient. Noted abd pain after the procedure which resolved after 4-5 days LABS IN [facility] : Reviewed IMAGING STUDIES: Reviewed ENDOSCOPIC STUDIES: Reviewed PAST GI HISTORY BY REVIEW OF MEDICAL RECORDS: Pt seen during hospitalization [place] [facility] [place]: 53 YM with morbid obesity, severe persistent asthma, type 2 diabetes mellitus on insulin, HFpEF, depression, obstructive sleep apnea and hypertension seen at [facility] on 06/19/23 with worsening shortness of breath, associated with chest tightness, dry cough and wheezing since evening of 06/18/23. He tried breathing treatment at home without improvement of symptoms. Pt reported lower extremity edema and denied fever or chills, headache, palpitations or dizziness. Pt reports a hx of chronic heartburn with regurgitation for the past several years with increased symptoms over the past 2 months. He was previously taking Omeprazole and was switched to twice daily Famotidine due to low Magnesium levels. Patient gives a history of intermittent constipation and denies noticing any black stools or blood in the stool. He admits to taking a baby aspirin daily and denies use of NSAIDs. Denies tobacco smoking, alcohol abuse or illicit drug use. Family hx is negative for colon polyps or GI malignancy. An uncle had gastric ulcer. Pt lives with a partner and has no children. 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 In the ED, he was found to have an oxygen saturation in the 70s and was placed and was placed on a non-rebreather mask. He also was found to have tachypnea and tachycardia. Blood pressure is stable. Labs showed no leukocytosis and lactic acidosis of 2.6. Hemoglobin is 9.1 (it was 11.8 on September 2022) and no thrombocytopenia. There are no electrolyte imbalances. There is hyperglycemia, last BG is 301. Renal function is adequate. LFTS showed elevated AST and alk-phos with normal Bilirubin, ALT and albumin. Initial VBG: PH 7.31, pCO2 57 and recheck pH 7.47 and pCO2 29. CXR is negative. ED tx: Solu-Medrol 125 mg IV, albuterol 7.5 mg x 1 53 YM with morbid obesity, severe persistent asthma, type 2 diabetes mellitus on insulin, HFpEF, depression, obstructive sleep apnea and hypertension admitted to [facility] on 06/19/23 with worsening shortness of breath, associated with chest tightness, dry cough and wheezing and lower extremity edema. Pt reports a hx of chronic heartburn with regurgitation for the past several years with increased symptoms over the past 2 months. Labs showed hb of 9.1 (it was 11.8 on September 2022) and no thrombocytopenia. Pt has a sleep apnea and uses a CPAP machine. Acute on chronic anemia related to iron def - likely due to UGI source (erosive esophagitis, possible varices, PUD, gastritis, GAVE or UGI AVMs). Lower GI source is less likely given negative colonoscopy 3 years ago. RECOMMENDATIONS: 1. Agree with IV PPI and IV iron infusion 2. Abdominal US - order placed. 3. Proceed with EGD in the am (needs GA due BMI of > 45) ADDENDUM: ABD U SHOWED: Heterogeneous liver echotexture and slightly irregular contour of the liver questionable for hepatocellular disease and mild cirrhotic change. No focal hepatic lesion. There is no intrahepatic biliary duct dilatation seen. No ascites [facility] Medical History Edema HTN (hypertension) Type 2 diabetes mellitus with diabetic polyneuropathy Iron deficiency anemia Cirrhosis Severe persistent allergic asthma Foot drop, left Lumbar radiculopathy, chronic Abnormal ECG Obesity due to excess calories Hx of pancreatitis Acid reflux Elevated alkaline phosphatase measurement Asthma MAURIZIO on CPAP Morbid obesity Degeneration of L4-L5 intervertebral disc Diabetes Anemia Apnea, sleep Dyspnea on exertion Obstructive sleep apnea Surgical History Hx of cholecystectomy History of back surgery Family History Father Diabetes Hearing loss Mother CVD (cardiovascular disease) Thyroid condition Paternal Grandmother Diabetes Paternal Aunt Diabetes Sister No problems noted. Sister No problems noted. 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 Review of Systems Const All systems reviewed & are unremarkable except as noted in HPI and below Physical Exam Vital Signs: Last Vital Signs Pulse 92 05/14/24 12:46 BP 140/54 H 05/14/24 12:46 Pulse Ox 97 05/14/24 12:46 Oxygen Delivery Method Room Air 05/14/24 12:46 BMI result Body Mass Index 48.1 Assessment & Plan Assessment & Plan (1) Chronic diarrhea: Code(s): K52.9 - Noninfective gastroenteritis and colitis, unspecified Category: Medical (2) Elevated LFTs: Code(s): R79.89 - Other specified abnormal findings of blood chemistry Category: Medical (3) Erosive esophagitis: Code(s): K22.10 - Ulcer of esophagus without bleeding Category: Medical (4) Gallstone pancreatitis: Code(s): K85.10 - Biliary acute pancreatitis without necrosis or infection Category: Medical (5) Abdominal bloating: Code(s): R14.0 - Abdominal distension (gaseous) Category: Medical (6) Anemia: Code(s): D64.9 - Anemia, unspecified Category: Medical (7) Abdominal bloating: Code(s): R14.0 - Abdominal distension (gaseous) Category: Medical Plan 54 YM with morbid obesity, severe persistent asthma, type 2 diabetes mellitus on insulin, HFpEF, depression, obstructive sleep apnea and hypertension hospitalized [place] [facility] [place], with worsening shortness of breath, associated with chest tightness, dry cough and wheezing and lower extremity edema. Pt reported a hx of chronic heartburn with regurgitation for the past several years with increased symptoms over the past 2 months. Labs showed hb of 9.1 (it was 11.8 on September 2022) and no thrombocytopenia. Pt has a sleep apnea and uses a CPAP machine. Acute on chronic anemia related to iron def - likely due to UGI source (erosive esophagitis, possible varices, PUD, gastritis, GAVE or UGI AVMs). Lower GI source is less likely given negative colonoscopy 3 years ago. ABD US SHOWED: Heterogeneous liver echotexture and slightly irregular contour of the liver questionable for hepatocellular disease and mild cirrhotic change. No focal hepatic lesion. There is no intrahepatic biliary duct dilatation seen. No ascites. 11/2023 EGD SHOWED: ESOPHAGUS: Erosive esophagitis healed completely STOMACH: Prominent gastric folds and benign appearing antral nodules A 12-15 mm polyp with central ulceration and slow oozing - removed with a hot snare. Polypectomy site was closed with 1 hemoclip. Resected polyp passed into the distal duodenum before it could be retrieved with a Rosas net Plan: Pt has a FU appointment on 12/26/[address] Childress. 05/14/24 Pt reports diarrhea resolved after dose of metformin was decreased. Has a BM 1-3 times a day - hard in the morning and a little softer later in the day. Notes a lot of gas on some days. Stool studies ordered during last visit not done yet Start simethicone and a probiotics for symptoms of gas and bloating Orders: Orders Complete Blood Count Auto Diff 05/14/24 D64.9 - Anemia, unspecified Comprehensive Met. Panel 05/14/24 D64.9 - Anemia, unspecified Ferritin 05/14/24 D64.9 - Anemia, unspecified Pancreatic Elastase-1 05/14/24 R14.0 - Abdominal distension (gaseous) Vitamin D 25-OH Total 05/14/24 R14.0 - Abdominal distension (gaseous) Medications: New simethicone (Gas Relief (simethicone)) 125 mg PO BID-QID PRN 90 caps 1RF abdominal distention 30 days Lactobacillus rhamnosus GG (Culturelle) 1 cap PO DAILY 90 caps 1RF 90 days R14.0 - Abdominal distension (gaseous) Coding Level of Care Code Est Pt Level 4 (96776) Diagnoses Chronic diarrhea K52.9 Elevated LFTs R79.89 Erosive esophagitis K22.10 Gallstone pancreatitis K85.10 Abdominal bloating R14.0 Anemia D64.9
[2024-05-14 12:46] VITALS: BP 140/54; PULSE 92; O2SAT 97; BMI 48.1
== END 2024-05-14 13:58 | disposition home or self-care (01) ==
LOC: HO.HGI 12:41
PROVIDERS: PCP Internal Medicine Geriatric Medicine; Visit Provider Internal Medicine Gastroenterology
DX: K52.9 Noninfective gastroenteritis and colitis, unspecified (principal); R79.89 Other specified abnormal findings of blood chemistry; K22.10 Ulcer of esophagus without bleeding; K85.10 Biliary acute pancreatitis without necrosis or infection; R14.0 Abdominal distension (gaseous); D64.9 Anemia, unspecified
CPT/HCPCS: 99499

== ENCOUNTER 2024-05-18 14:28 | Outpatient (AMB) | payer MEDICAID, SELFPAY ==
--- NOTE | 2024-05-18 14:31 | A.OFFVIS_ITS ---
Vital Signs 05/18/24 14:35 Height 5 ft 6 in Weight 302 lb 0.533 oz BMI 48.7 BP 132/70 Blood Pressure Location Rt brachial Position Sitting Pulse 94 Pulse Source Pulse Oximeter Pulse Oximetry (%) 96 Oxygen Delivery Method Room Air Intake Visit Reasons: Dm Intake Note: Patient presents today for D2MT follow up visit. Last Diabetic Eye exam: 01/2024 Last Podiatry Visit: Doesn't have one Most Recent HgA1c: 7.0%, 05/18/2024 Random Glucose: 160 mg/dL, Today Die Storage Clerk Required: No Accompanied by: Self / Same As Patient Allergies pollen extracts Allergy (Verified 05/14/24 12:44) Unknown Medication List - Last Reconciled 05/18/24 by Genia Ford PA-C acetaminophen 500 mg PO Q6H PRN albuterol sulfate 90 mcg/actuation (Ventolin HFA) 2 puffs inhalation Q4-6H PRN allopurinol 100 mg PO DAILY blood-glucose meter,continuous (FreeStyle Monty 3 [place]) Use daily As directed to monitor blood glucose blood-glucose sensor (FreeStyle Monty 3 Plus Sensor device) Use daily As directed to monitor glucose bumetanide 2 mg (2 x 1 mg) PO DAILY 30 days calcium carbonate (Calcium Antacid) mg PO TID diclofenac sodium 1% 2 grams topical QID PRN flash glucose sensor (FreeStyle Monty 2 Sensor kit) USE DIRECTED. CHANGE TERA RY 14 DAYS fluticasone furoate 200 mcg/actuation (Arnuity Ellipta) 1 inh inhalation DAILY fluticasone furoate-vilanterol 200-25 mcg/dose (Breo Ellipta) 1 inh inhalation DAILY gabapentin 300 mg PO TID glimepiride 2 mg PO DAILY glucose (Dex4 Glucose) 16 grams (4 x 4 gram) PO Q15M PRN 30 days insulin glargine (Lantus U-100 Insulin) 28 units subcut BID insulin lispro 28 units subcut TID Lactobacillus rhamnosus GG (Culturelle) 1 cap PO DAILY 90 days lisinopril 40 mg PO DAILY magnesium oxide 400 mg PO TID metformin ER 500 mg PO BID omeprazole 20 mg PO BID pen needle, diabetic (BD [place] 2nd Gen Pen Needle) Use BID As directed pravastatin 20 mg PO BEDTIME simethicone (Gas Relief (simethicone)) 125 mg PO BID-QID PRN 30 days sodium chloride 0.9% 3 mL inhalation 6XD PRN spironolactone 25 mg PO DAILY tadalafil (Cialis) 5 mg PO DAILY 90 days tadalafil (Cialis) 20 mg PO .PRN PRN 90 days HPI HPI Dm: Details: Pt is a 54 y/o male who presents today for a diabetic follow up. He has a hx of htn, ED, gerd, hld, t2dm, gallstone pancreatitis, asthma, maurizio on cpap, anemia and depression. Endo: DM- A1c is 7. He is currently on lantus 38 units BID, lispro 20-30 units TID , glimepiride 2mg in am, and 1000 mg metformin daily.. -he states since our last visit he has had to use more fast acting insulin to account for the higher glucose readings. Denies low blood sugars. He states that he really does not like doing the twice a day injections of the Lantus and sometimes struggles with remembering the morning Lantus. -He has been unable to get the monty 2 from pharmacy and was switched to 3+. He states the sensor and reader is in process . He will let me know if he is unable to get this. -Intolerant to Trulicity and Ozempic due to eructation/flatulence foul, bloating. Jardiance caused UTIs/yeast infections (even with a1c of 7). Metformin at higher doses caused diarrhea cgm- has not yet gotten the 3+ from the pharmacy. hypoglycemia- he denies any hypoglycemia hyperglycemia-in the evening. Does endorse that sometimes his diets are not the best. CV: Bp today in office is 132/70. He is on lisinopril 40 mg, norvasc 5 mg and spironolactone 25 mg. He is on pravastatin 20 mg. No myalgias. Last ldl was 65. [facility] Medical History HTN (hypertension) Type 2 diabetes mellitus with diabetic polyneuropathy Iron deficiency anemia Cirrhosis Severe persistent allergic asthma Foot drop, left Lumbar radiculopathy, chronic Abnormal ECG Obesity due to excess calories Hx of pancreatitis Acid reflux Elevated alkaline phosphatase measurement Asthma MAURIZIO on CPAP Morbid obesity Degeneration of L4-L5 intervertebral disc Diabetes Anemia Apnea, sleep Dyspnea on exertion Obstructive sleep apnea Surgical History Hx of cholecystectomy History of back surgery Family History Father Diabetes Hearing loss Mother CVD (cardiovascular disease) Thyroid condition Paternal Grandmother Diabetes Paternal Aunt Diabetes Sister No problems noted. Sister No problems noted. 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 Results AMB Hemoglobin A1c AMB Hemoglobin A1c 7.0 % Last Edit by VIDHI Payne on 05/18/24 14:48 Results Reviewed Results Reviewed: Laboratory Tests 07/25/23 04/30/24 05/14/24 14:20 16:21 14:23 Sodium 137 Potassium 3.7 Chloride 103 Carbon Dioxide 28 Anion Gap 10 L BUN 12 Creatinine 1.00 Estimated GFR > 60 Random Glucose 185 H Uric Acid 7.3 H AST 29 ALT 22 Urine Creatinine 18.16 Urine Microalbumin < 5.0 Microalb/Creat Ratio TNP Assessment & Plan Assessment & Plan (1) Type 2 diabetes mellitus with diabetic polyneuropathy: Code(s): E11.42 - Type 2 diabetes mellitus with diabetic polyneuropathy Category: Medical Qualifiers: Diabetes mellitus workforce planning analyst insulin use: with workforce planning analyst use Qualified Code(s): E11.42 - Type 2 diabetes mellitus with diabetic polyneuropathy; Z79.4 - adult education teacher (current) use of insulin Plan: Platypus TV 3 francisco j downloaded on smart phone today. demonstrated how to use the francisco j sensor sample provided today in the office No sensor data available to review today. We will switch from Lantus to Toujeo and increase the dose slightly to 78 units. He will continue with his NovoLog, glimepiride and metformin We did review that nephrology does recommend that he starts Jardiance but he does not want to do this as he had significant yeast infections with it despite having an A1c of 7. I have encouraged diet and weight loss. Reviewed rule of 15 again. Nasal spray ordered any does have glucose tabs at home Three-month follow up. Sooner if needed. (2) Hyperlipidemia: Code(s): E78.5 - Hyperlipidemia, unspecified Category: Medical Plan: continue pravastatin (3) HTN (hypertension): Code(s): I10 - Essential (primary) hypertension Category: Medical Qualifiers: Hypertension type: primary hypertension Qualified Code(s): I10 - Essential (primary) hypertension Plan: wnl continue current plan Orders: Orders AMB Hemoglobin A1c Today E11.42 - Type 2 diabetes mellitus with diabetic polyneuropathy, Z79.4 - nursing home (current) use of insulin Medications: New glucagon 3 mg/actuation 3 mg intranasal ONCE PRN 2 ea 0RF hypoglycemia insulin glargine U-300 conc (Toujeo Max U-300 SoloStar) 78 units (0.26 mL) subcut DAILY 6 mL 6RF Refilled blood-glucose sensor (FreeStyle Monty 3 Plus Sensor device) Use daily As directed to monitor glucose 2 ea 5RF E08.29 - Diabetes mellitus due to underlying condition with other diabetic kidney complication, R80.9 - Proteinuria, unspecified, Z79.4 - nursing home (current) use of insulin Discontinued flash glucose sensor (FreeStyle Monty 2 Sensor kit) Discontinued Reason: Doctor's Order USE DIRECTED. CHANGE EVERY 14 DAYS 2 ea 0RF Coding Level of Care Code Est Pt Level 4 (40749) Complex EM visit Add On G2211 Diagnoses Type 2 diabetes mellitus with diabetic polyneuropathy, with long-term current use of insulin E11.42; Z79.4 Diabetes mellitus workforce planning analyst insulin use: with skilled nursing use Hyperlipidemia E78.5 Primary hypertension I10 Hypertension type: primary hypertension
[2024-05-18 14:35] VITALS: BP 132/70; PULSE 94; O2SAT 96; BMI 48.7
[2024-05-18 14:46] LABS: Glucose, Whole Blood 160 mg/dL (60-115)
== END 2024-05-18 15:07 | disposition home or self-care (01) ==
LOC: HO.ENCR 14:29
PROVIDERS: PCP Internal Medicine Geriatric Medicine; Visit Provider Physician Assistant
DX: E11.42 Type 2 diabetes mellitus with diabetic polyneuropathy (principal); Z79.4 Long term (current) use of insulin; E78.5 Hyperlipidemia, unspecified; I10 Essential (primary) hypertension

== ENCOUNTER → 2024-05-18 14:28 | Outpatient (BNVA) | payer MEDICAID, SELFPAY | PROVIDERS: PCP Internal Medicine Geriatric Medicine; Visit Provider Physician Assistant | DX: E11.42 Type 2 diabetes mellitus with diabetic polyneuropathy (principal); E78.5 Hyperlipidemia, unspecified; I10 Essential (primary) hypertension; Z79.4 Long term (current) use of insulin | CPT/HCPCS: 82947; 83036; 99212 ==

== ENCOUNTER 2024-06-29 15:35 | Outpatient (AMB) | payer MEDICAID, SELFPAY ==
[2024-06-29 15:37] VITALS: BP 132/82; PULSE 94; O2SAT 97; BMI 48.4
--- NOTE | 2024-06-29 15:37 | A.OFFVIS_ITS ---
Vital Signs 06/29/24 15:37 Height 5 ft 6 in Weight 299 lb 13.259 oz BMI 48.4 BP 132/82 Blood Pressure Location Rt brachial Position Sitting Pulse 94 Pulse Source Pulse Oximeter Pulse Oximetry (%) 97 Oxygen Delivery Method Room Air Intake Visit Reasons: T2DM Intake Note: Patient presents today for D2MT follow up visit. Last Diabetic Eye exam: 01/2024 Last Podiatry Visit: Doesn't have one Most Recent HgA1c: 7.0%, 05/18/2024 Random Glucose: 95 mg/dL, Today Pig Sticker Required: No Accompanied by: Self / Same As Patient Allergies pollen extracts Allergy (Verified 05/14/24 12:44) Unknown Medication List - Last Reconciled 06/29/24 by Balta Salazar MD acetaminophen 500 mg PO Q6H PRN albuterol sulfate 90 mcg/actuation (Ventolin HFA) 2 puffs inhalation Q4-6H PRN allopurinol 100 mg PO DAILY blood-glucose sensor (FreeStyle Monty 3 Plus Sensor device) Use daily As directed to monitor glucose blood-glucose,pc network technician,cont (FreeStyle Monty 3 [place]) Use daily As directed to monitor blood glucose bumetanide 2 mg (2 x 1 mg) PO DAILY 90 days calcium carbonate (Calcium Antacid) mg PO TID diclofenac sodium 1% 2 grams topical QID PRN fluticasone furoate 200 mcg/actuation (Arnuity Ellipta) 1 inh inhalation DAILY fluticasone furoate-vilanterol 200-25 mcg/dose (Breo Ellipta) 1 inh inhalation DAILY gabapentin 300 mg PO TID glimepiride 2 mg PO DAILY glucagon 3 mg/actuation 3 mg intranasal ONCE PRN glucose (Dex4 Glucose) 16 grams (4 x 4 gram) PO Q15M PRN 30 days insulin glargine U-300 conc (Toujeo Max U-300 SoloStar) 78 units (0.26 mL) subcut DAILY insulin lispro 28 units (0.28 mL) subcut TID Lactobacillus rhamnosus GG (Culturelle) 1 cap PO DAILY 90 days lisinopril 40 mg PO DAILY magnesium oxide 400 mg PO TID metformin ER 500 mg PO BID omeprazole 20 mg PO BID pen needle, diabetic Use QID As directed pravastatin 20 mg PO BEDTIME simethicone (Gas Relief (simethicone)) 125 mg PO BID-QID PRN 30 days sodium chloride 0.9% 3 mL inhalation 6XD PRN spironolactone 25 mg PO DAILY tadalafil (Cialis) 20 mg PO .PRN PRN 90 days tadalafil (Cialis) 5 mg PO DAILY 90 days HPI Comments Details: Patient is a 54-year-old male with DM type 2 diagnosed 2005, who presents for management of diabetes. Past medical history: DM2, HTN, Vit D deficiency, Fatty liver, asthma, ob esity, history of pancreatitis September 2020 Micro and macrovascular complications: retinopathy, nephropathy, + neuropathy, but no CVA, CAD, PVD Diabetes medications: Toujeo 76 units daily, Lispro 36-40 premeals glimepiride 2mg in am,, metformin 5000mg BID. Intolerant to Trulicity and Ozempic and Mounjaro due to eructation/flatulence foul, bloating. Monty download shows he is using the sensor 95% of time. Average glucose is 154. 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 - CDE education: seeing [facility] Ophthalmology evaluation: apptin 01/2024 denies retinopathy Podiatry appt last mo Laboratory Tests 11/30/20 10:02 Hgb A1c (Clinic) 6.1 H [facility] Medical History HTN (hypertension) Type 2 diabetes mellitus with diabetic polyneuropathy Iron deficiency anemia Cirrhosis Severe persistent allergic asthma Foot drop, left Lumbar radiculopathy, chronic Abnormal ECG Obesity due to excess calories Hx of pancreatitis Acid reflux Elevated alkaline phosphatase measurement Asthma MAURIZIO on CPAP Morbid obesity Degeneration of L4-L5 intervertebral disc Diabetes Anemia Apnea, sleep Dyspnea on exertion Obstructive sleep apnea Surgical History Hx of cholecystectomy History of back surgery Family History Father Diabetes Hearing loss Mother CVD (cardiovascular disease) Thyroid condition Paternal Grandmother Diabetes Paternal Aunt Diabetes Sister No problems noted. Sister No problems noted. 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 Absence of acromegalic features. Neck exam reveals nl size thyroid about 15 gms. No thyroid nodules palpable. No carotid bruits present. Lungs CTA. Heart S1 S2, Reg R/R. No M/R/ G. Skin exam reveals absence of vitiligo or acanthosis nigricans. Abdominal exam reveals Soft NT/ND with NA BS. No organomegaly present. Neck Other: . Extrem Other: Visual exam of foot performed. 2+ edema around anles No ulcerations or open lesions. No onchomycosis, no callouses.Pulses 2 + distally Sensation intact to monofilament exam. Vibratory sensation sensed is intact with 128 Hz tuning fork Assessment & Plan Assessment & Plan (1) Diabetes: Code(s): E11.9 - Type 2 diabetes mellitus without complications Category: Medical Qualifiers: Diabetes mellitus type: type 2 Diabetes mellitus intermediate school teacher insulin use: with intermediate school teacher use Diabetes mellitus complication status: with hyperglycemia Qualified Code(s): E11.65 - Type 2 diabetes mellitus with hyperglycemia; Z79.4 - FPC (current) use of insulin Plan: This is a 53-year-old male with a history of type 2 diabetes being treated with metformin, , glimepiride and basal insulin with excellent improved glycemic control and known microvascular and macrovascular complications namely retinopathy, nephropathy, + neuropathy, The plan is to continue the current regimen. Patient should check a lipid profile and microalbumin to creatinine ratio ordered by GALLITO Suárez and follow up with her in 4 months Coding Level of Care Code Est Pt Level 4 (87790) Complex EM visit Add On G2211 Diagnoses Type 2 diabetes mellitus with hyperglycemia, with long-term current use of insulin E11.65; Z79.4 Diabetes mellitus type: type 2 Diabetes mellitus jail insulin use: with jail use Diabetes mellitus complication status: with hyperglycemia
[2024-06-29 15:46] LABS: Glucose, Whole Blood 95 mg/dL (60-115)
--- OUTSIDE RECORDS SUMMARY | 2024-06-29 17:07 | XMS_ITS | Encounter Summary ---
Author Organization [employer] [facility] Address [address] [place] [address] 7t [place] [address] Care Team Providers Care Sledger Name Role Phone Name, Beau FRANKS Primary Care Provider [phone] Bambi Jauregui Unavailable Mechelle Dumont RN Unavailable [phone] Encounter Details Date Type Department Care Team (Late st Contact Info) Description 08/06/2022 Abstract [facility] [address] [place] [phone] Beau Stewart MD [address] [place] [address] [phone] Social History Tobacco Use Types Packs/Day Years [...] as of this encounter Plan of Treatment Upcoming Encounters Date Type Department Care Team (Late st Contact Info) Description 08/18/2024 3:30 PM EDT Office Visit [facility] [address] [place] [address] [phone] Beau Stewart MD [address] [place] [address] [phone] documented as of this encounter Procedures Procedure Name Priority Date/Time Associated Diagnosis Comments COLONOSCOPY Routine 06/09/2020 2:16 PM EDT documented in this encounter Results * Colonoscopy (06/09/2020 2:16 PM EDT) Colonoscopy Normal Normal Narrative Radha Aviles - 06/09/2020 2:16 PM EDT Recommended 10 year follow up ([facility] [place] Historical Provider HEALTH MAINTENANCE Final Result documented in this encounter Visit Diagnoses Not on filedocumented in this encounter Care Teams Sledger Relationship Specialty Start Date End Date Name, MD Beau [address] [place] [address] PCP - General Family Medicine 06/01/15 Bambi Jauregui Community Health Worker 06/27/2309/14 Mechelle Dumont RN [address] [place] [address] Greenhouse Grower 06/27/23 09/15/23 documented as of this encounter
--- OUTSIDE RECORDS SUMMARY | 2024-06-29 17:07 | XMS_ITS | Encounter Summary ---
Author Organization [employer] Address 75 [facility] 7t [place] [address] Care Team Providers Care Belt Cutter Name Role Phone Name, Beau FRANKS Primary Care Provider [phone] Reason for Visit * Reason Comments Med Refill Encounter Details Date Type Department Care Team ([facility] st Contact Info) Description 10/04/2023 Refill [facility] MEDICINE [address] [place], [place] [phone] Name, MD Beau [address] [place] [address] Social History Tobacco Use Types Packs/Day Years [...] Description 08/18/2024 3:30 PM EDT Office Visit [facility] MEDICINE [address] [place] [phone] NameBeau MD [address] [place] [address] documented as of this encounter Visit Diagnoses Not on filedocumented in this encounter Additional Health Concerns Assessment Noted Time PHQ-9 Depression Total Score: 19 023 3:46 PM EDT documented as of this encounter Care Teams Belt Cutter Relationship Specialty Start Date End Date NameBeau MD [address] [place] [address] PCP - General Family Medicine 06/01/15 documented as of this encounter
--- OUTSIDE RECORDS SUMMARY | 2024-06-29 17:07 | XMS_ITS | Clinical Summary ---
Author Organization [facility] Address [address] [place] [address] Phone Care Team Providers Care Accounting Intern Name Role Phone Name, Beau FRANKS Primary Care Provider Medications albuterol (2.5 MG/3ML) 0.083% nebulizer solution [...] Health Maintenance Due Date Last Done Comments Hepatitis B Vaccine (1 of 3 - 19+ 3-dose series) 01/21 Pneumococcal Vaccine: 50+ Years (1 of 2 - PCV) 989 Colorectal Cancer Screening: Annual FOBT 2019 Colorectal Cancer Screening: Colonoscopy 2019 Colorectal Cancer Screening: Sigmoidoscopy 2019 Influenza Vaccine (Season Ended) 2024 Insurance Medicaid [place] Medicaid [place] Care Teams Accounting Intern Relationship Specialty Start Date End Date Name, MD Beau [address] [place] [phone] PCP - General Internal Medicine 10/05/21
--- OUTSIDE RECORDS SUMMARY | 2024-06-29 17:07 | XMS_ITS | Encounter Summary ---
Author Organization [employer] [facility] Address [address] [place] [address] 7t [place] [address] Care Team Providers Care Bath Design Sales Consultant Name Role Phone Name, Beau FRANKS Primary Care Provider [phone] Bambi Jauregui Unavailable Mechelle Dumont RN Unavailable [phone] Reason for Visit * Reason Comments Med Refill Encounter Details Date Type Department Care Team (Late st Contact Info) Description 06/11/2022 Refill [facility] MEDICINE [address] [place] [phone] Beau Stewart MD [address] [place] [address] [phone] Iron deficiency Social History Tobacco Use Types [...] Description 08/18/2024 3:30 PM EDT Office Visit [facility] [address] [place] [address] [phone] Beau Stewart MD [address] [place] [address] [phone] documented as of this encounter Visit Diagnoses Diagnosis Iron deficiency Disorders of iron metabolism documented in this encounter Care Teams Bath Design Sales Consultant Relationship Specialty Start Date End Date Name, MD Beau [address] [place] [address] PCP - General Family Medicine 06/01/15 Bambi Jauregui Community Health Worker 06/27/2309/14 Mechelle Dumont RN [address] [place] [address] Devops Solutions Architect 06/27/23 09/15/23 documented as of this encounter
--- OUTSIDE RECORDS SUMMARY | 2024-06-29 17:07 | XMS_ITS | Encounter Summary ---
Author Organization [employer] [facility] Address [address] [place] [address] 7[place] [address] Care Team Providers Care Ice Cream Truck Driver Name Role Phone Name, Beau FRANKS Primary Care Provider [phone] Bambi Jauregui Unavailable Mechelle Dumont RN Unavailable [phone] Reason for Visit * Reason Comments Med Refill Encounter Details Date Type Department Care Team (Late st Contact Info) Description 05/28/2022 Refill [facility] MEDICINE [address] [place] [address] [phone] Beau Stewart MD [address] [place] [address] [phone] Asthma, unspecified asthma severity, unspecified whether complicated, [...] Encounters Date Type Department Care Team (Late Contact Info) Description 08/18/2024 3:30 PM EDT Office Visit [facility] [address] [place] [address] [phone] Beau Stewart MD [address] [place] [address] [phone] documented as of this encounter Visit Diagnoses Diagnosis Asthma, unspecified asthma severity, unspecified whether complicated, unspecified whether persistent documented in this encounter Care Teams Ice Cream Truck Driver Relationship Specialty Start Date End Date Name, MD Beau [address] [place] [address] PCP - General Family Medicine 06/01/15 Bambi Jauregui Community Health Worker 06/27/2309/14 Mechelle Dumont RN [address] [place] [phone] Plant Utilities Engineer 06/27/23 09/15/23 documented as of this encounter
--- OUTSIDE RECORDS SUMMARY | 2024-06-29 17:07 | XMS_ITS | Encounter Summary ---
Author Organization [employer] Address [address] [facility] 7t [place] [address] Care Team Providers Care Bookstore Clerk Name Role Phone Name, Beau FRANKS Primary Care Provider [phone] Reason for Visit * Reason Onset Date Comments Med Refill 10/04/2023 Encounter Details Date Type Department Care Team ([facility] st Contact Info) Description 10/04/2023 Telephone [facility] MEDICINE [address] [place], [place] [phone] Name, MD Beau [address] [place] [address] Med Refill Social History Tobacco Use Types [...] MG EC tablet To be sent to: [id number] [facility] documented in this encounter Plan of Treatment Upcoming Encounters Date Type Department Care Team (Late st Contact Info) Description 08/18/2024 3:30 PM EDT Office Visit [facility] MEDICINE [address] [place] [address] Name, MD Beau [address] [place] [address] documented as of this encounter Visit Diagnoses Not on filedocumented in this encounter Additional Health Concerns Assessment Noted Time PHQ-9 Depression Total Score: 19 023 3:46 PM EDT documented as of this encounter Care Teams Bookstore Clerk Relationship Specialty Start Date End Date Name, MD Beau [address] [place] [address] PCP - General Family Medicine 06/01/15 documented as of this encounter
--- OUTSIDE RECORDS SUMMARY | 2024-06-29 17:07 | XMS_ITS | Encounter Summary ---
Author Organization [employer] Address 75 [facility] 7t [place] [address] Care Team Providers Care Stitcher Special Machine Name Role Phone Name, Beau FRANKS Primary Care Provider [phone] Encounter Details Date Type Department Care Team (Late st Contact Info) Description 06/29/2024 Orders Only GENERIC EXTERNAL DATA DEPARTMENT Provider, [...] Description 08/18/2024 3:30 [address]T Office [address] [facility] MEDICINE [address] [place] [address] Name, MD Beau [address] [place] [address] documented as of this encounter Procedures Procedure Name Priority Date/Time Associated Diagnosis Comments GLUCOSE, WHOLE BLOOD Routine 06/29/2024 3:39 PM EDT documented in this encounter Results * Glucose, Whole Blood (06/29/2024 3:39 PM EDT) Glucose, Whole Blood 95 60 - 115 mg/dL [facility] Comment:METER #: [id number] 5Testing performed in the Endocrinology Department [address] , [address], [facility]. 06/29/2024 3:39 PM EDT 06/29/2024 3:45 PM EDT us Generic External Data Provider LAB BLOOD ORDERAB LES Final Result [facility] [address] [place] [address] [phone] documented in this encounter Visit Diagnoses Not on filedocumented in this encounter Additional Health Concerns Assessment Noted Time PHQ-9 Depression Total Score: 24 024 3:46 PM EST documented as of this encounter Care Teams Stitcher Special Machine Relationship Specialty Start Date End Date Name, MD Beau [address] [place] [address] PCP - General Family Medicine 06/01/15 documented as of this encounter
--- OUTSIDE RECORDS SUMMARY | 2024-06-29 17:07 | XMS_ITS | Encounter Summary ---
Author Organization [employer] Address 75 [facility] 7t [place] [address] Care Team Providers Care Senior Front End Web Developer Name Role Phone Name, Beau FRANKS Primary Care Provider [phone] Bambi Jauregui Unavailable Mechelle Dumont RN Unavailable [phone] Reason for Visit * Reason Onset Date Comments Med Refill 08/21/2022 Encounter Details Date Type Department Care Team (Late st Contact Info) Description 08/21/2022 Telephone [facility] MEDICINE [address] [place], [place] [phone] Name, MD Beau [address] [place], [place] [phone] Med Refill Social History Tobacco Use Types [...] Description 08/18/2024 3:30 PM EDT Office Visit [facility] MEDICINE [address] [place] [phone] Name, MD Beau [address] [place] [phone] documented as of this encounter Visit Diagnoses Not on filedocumented in this encounter Care Teams Senior Front End Web Developer Relationship Specialty Start Date End Date Name, MD Beau [address] [place] [address] PCP - General Family Medicine 06/01/15 Bambi Jauregui Community Health Worker 06/27/2309/14 Mechelle Dumont RN [address] [place] [address] Space Buyer 06/27/23 09/15/23 documented as of this encounter
--- OUTSIDE RECORDS SUMMARY | 2024-06-29 17:07 | XMS_ITS | Encounter Summary ---
Author Organization [employer] Address [address] [facility] 7t [place] [address] Care Team Providers Care Diversity Intern Name Role Phone Name, Beau FRANKS Primary Care Provider Reason for Visit * Reason Comments Med Refill Encounter Details Date Type Department Care Team ([facility] st Contact Info) Description 04/07/2024 Refill [facility] MEDICINE [address] [place], [place] [phone] Laura Russell MD [address] [place] [address] Asthma, unspecified asthma severity, unspecified whether complicated, [...] Description 08/18/2024 3:30 PM EDT Office Visit [facility] MEDICINE [address] [place] [phone] Name, MD Beua [address] [place] [address] documented as of this encounter Visit Diagnoses Diagnosis Asthma, unspecified asthma severity, unspecified whether complicated, unspecified whether persistent documented in this encounter Additional Health Concerns Assessment Noted Time PHQ-9 Depression Total Score: 24 024 3:46 PM EST documented as of this encounter Care Teams Diversity Intern Relationship Specialty Start Date End Date NameBeau MD [address] [place] [address] PCP - General Family Medicine 06/01/15 documented as of this encounter
--- OUTSIDE RECORDS SUMMARY | 2024-06-29 17:07 | XMS_ITS | Encounter Summary ---
Author Organization [facility] [facility] Address [address] [place] [address] 7t [place] [address] Care Team Providers Care Gluing Machine Operator Electronic Name Role Phone Name, Beau FRANKS Primary Care Provider [phone] Bambi Jauregui Unavailable Mechelle Dumont RN Unavailable [phone] Reason for Visit * Reason Comments Med Refill Encounter Details Date Type Department Care Team (Late st Contact Info) Description 06/08/2022 Refill [facility] MEDICINE [address] [place] [address] [phone] Beau Stewart MD [address] [place] [address] [phone] Asthma, unspecified asthma severity, unspecified whether complicated, [...] Description 08/18/2024 3:30 PM EDT Office Visit [facility] MED[facility]INE [address] [place] [address] [phone] Beau Stewart MD [address] [place] [address] [phone] documented as of this encounter Visit Diagnoses Diagnosis Asthma, unspecified asthma severity, unspecified whether complicated, unspecified whether persistent documented in this encounter Care Teams Gluing Machine Operator Electronic Relationship Specialty Start Date End Date Name, MD Beau [address] [place] [address] PCP - General Family Medicine 06/01/15 Bambi Jauregui Community Health Worker 06/27/2309/14 Mechelle Dumont RN [address] [place] [address] Nurse Assessor 06/27/23 09/15/23 documented as of this encounter
--- OUTSIDE RECORDS SUMMARY | 2024-06-29 17:07 | XMS_ITS | Encounter Summary ---
Author Organization [employer] Address 75 [facility] 7t [place] [address] Care Team Providers Care Carpet Inspector Finished Name Role Phone Name, Beau FRANKS Primary Care Provider [phone] Reason for Visit * Reason Comments Med Refill Encounter Details Date Type Department Care Team ([facility] st Contact Info) Description 10/18/2023 Refill [facility] MEDICINE [address] [place], [place] [phone] Chiquis Harris MD [address] [place], [place] [phone] Iron deficiency Social History Tobacco Use Types [...] Description 08/18/2024 3:30 PM EDT Office Visit [facility] MEDICINE [address] [place] [phone] Name, MD Beau [address] [place] [address] documented as of this encounter Visit Diagnoses Diagnosis Iron deficiency Disorders of iron metabolism documented in this encounter Additional Health Concerns Assessment Noted Time PHQ-9 Depression Total Score: 19 023 3:46 PM EDT documented as of this encounter Care Teams Carpet Inspector Finished Relationship Specialty Start Date End Date NameBeau MD [address] [place] [phone] PCP - General Family Medicine 06/01/15 documented as of this encounter
--- OUTSIDE RECORDS SUMMARY | 2024-06-29 17:08 | XMS_ITS | Encounter Summary ---
Author Organization [employer] Address 75 [facility] 7t [place] [address] Care Team Providers Care Professional Builder Name Role Phone Name, Beau FRANKS Primary Care Provider [phone] Reason for Visit * Reason Comments Med Refill Encounter Details Date Type Department Care Team ([facility] st Contact Info) Description 09/19/2023 Refill [facility] MEDICINE [address] [place], [place] [phone] Name, MD Beau [address] [place], [place] [phone] Erectile dysfunction, unspecified erectile dysfunction type Social [...] Description 08/18/2024 3:30 PM EDT Office Visit [facility] MEDICINE [address] [place] [phone] Name, MD Beau [address] [place] [address] documented as of this encounter Visit Diagnoses Diagnosis Erectile dysfunction, unspecified erectile dysfunction type documented in this encounter Additional Health Concerns Assessment Noted Time PHQ-9 Depression Total Score: 19 023 3:46 PM EDT documented as of this encounter Care Teams Professional Builder Relationship Specialty Start Date End Date NameBeau MD [address] [place] [address] PCP - General Family Medicine 06/01/15 documented as of this encounter
--- OUTSIDE RECORDS SUMMARY | 2024-06-29 17:08 | XMS_ITS | Encounter Summary ---
Author Organization [employer] Address [address] [facility] 7t [place] [address] Care Team Providers Care Brake Operator Helper Name Role Phone Name, Beau FRANKS Primary Care Provider [phone] Bambi Jauregui Unavailable Mechelle Dumont RN Unavailable [phone] Encounter Details Date Type Department Care Team ([facility] st Contact Info) Description 04/08/2023 Orders Only [facility] MED & PEDS [address] [place] [address] Ekaterina Pappas LPN Social History Tobacco Use [...] Description 08/18/2024 3:30 PM EDT Office Visit [facility] MEDICINE [address] [place] [address] Name, MD Beau [address] [place] [address] documented as of this encounter Visit Diagnoses Not on filedocumented in this encounter Additional Health Concerns Assessment Noted Time PHQ-9 Depression Total Score: 19 023 3:46 PM EDT documented as of this encounter Care Teams Brake Operator Helper Relationship Specialty Start Date End Date Name, MD Beau [address] [place] [address] PCP - General Family Medicine 06/01/15 Bambi Jauregui Community Health Worker 06/27/2309/14 Mechelle Dumont RN [address] [place] [address] Credit Reference Clerk 06/27/23 09/15/23 documented as of this encounter
--- OUTSIDE RECORDS SUMMARY | 2024-06-29 17:08 | XMS_ITS | Encounter Summary ---
Author Organization [employer] Address [address] [facility] 7t [place] [address] Care Team Providers Care Environmental Aid Name Role Phone Name, Beau FRANKS Primary Care Provider [phone] Bambi Jauregui Unavailable Mechelle Dumont RN Unavailable [phone] Reason for Visit * Reason Comments Med Refill Encounter Details Date Type Department Care Team (Late st Contact Info) Description 01/31/2023 Refill [facility] MED & PEDS [address] [place], [place] [phone] Name, MD Beau [address] [place] [address] Asthma, unspecified asthma severity, unspecified whether complicated, [...] Description 08/18/2024 3:30 PM EDT Office Visit [facility] MEDICINE [address] [place] [address] NameBeau MD [address] [place] [address] documented as of this encounter Visit Diagnoses Diagnosis Asthma, unspecified asthma severity, unspecified whether complicated, unspecified whether persistent documented in this encounter Additional Health Concerns Assessment Noted Time PHQ-9 Depression Total Score: 19 023 3:46 PM EDT documented as of this encounter Care Teams Environmental Aid Relationship Specialty Start Date End Date Beau Stewart MD [address] [place] [address] PCP - General Family Medicine 06/01/15 Bambi Jauregui Community Health Worker 06/27/2309/14 Mechelle Dumont RN [address] [place] [address] Inside Outside Sales Representative 06/27/23 09/15/23 documented as of this encounter
--- OUTSIDE RECORDS SUMMARY | 2024-06-29 17:08 | XMS_ITS | Encounter Summary ---
Author Organization [employer] Address [address] [facility] 7t [place] [address] Care Team Providers Care Solar Sales Representative Name Role Phone Name, Beau FRANKS Primary Care Provider [phone] Bambi Jauregui Unavailable Mechelle Dumont RN Unavailable [phone] Reason for Visit * Reason Comments Med Refill Encounter Details Date Type Department Care Team ([facility] st Contact Info) Description 02/21/2023 Refill [facility] MEDICINE [address] [place], [place] [phone] Name, MD Beau [address] [place], [place] [phone] Chronic pain syndrome Social History Tobacco Use [...] Description 08/18/2024 3:30 PM EDT Office Visit [facility] MEDICINE [address] [place] [address] Name, MD Beau [address] [place] [address] documented as of this encounter Visit Diagnoses Diagnosis Chronic pain syndrome documented in this encounter Additional Health Concerns Assessment Noted Time PHQ-9 Depression Total Score: 19 023 3:46 PM EDT documented as of this encounter Care Teams Solar Sales Representative Relationship Specialty Start Date End Date NameBeau MD [address] [place] [address] PCP - General Family Medicine 06/01/15 Bambi Jauregui Community Health Worker 06/27/2309/14 Mechelle Dumont RN [address] [place] [address] Multiple Drum Sander 06/27/23 09/15/23 documented as of this encounter
--- OUTSIDE RECORDS SUMMARY | 2024-06-29 17:08 | XMS_ITS | Encounter Summary ---
Author Organization [employer] Address [address] [facility] 7t [place] [address] Care Team Providers Care Presiding Steward Name Role Phone Name, Beau FRANKS Primary Care Provider [phone] Bambi Jauregui Unavailable Mechelle Dumont RN Unavailable [phone] Reason for Visit * Reason Comments Med Refill Encounter Details Date Type Department Care Team ([facility] st Contact Info) Description 06/10/2023 Refill [facility] MEDICINE [address] [place], [place] [phone] Name, MD Beau [address] [place], [place] [phone] Asthma, unspecified asthma severity, unspecified whether complicated, [...] Description 08/18/2024 3:30 PM EDT Office Visit [facility] MEDICINE [address] [place] [address] NameBeau MD [address] [place] [address] documented as of this encounter Visit Diagnoses Diagnosis Asthma, unspecified asthma severity, unspecified whether complicated, unspecified whether persistent documented in this encounter Additional Health Concerns Assessment Noted Time PHQ-9 Depression Total Score: 19 023 3:46 PM EDT documented as of this encounter Care Teams Presiding Steward Relationship Specialty Start Date End Date NameBeau MD [address] [place] [address] PCP - General Family Medicine 06/01/15 Bambi Jauregui Community Health Worker 06/27/2309/14 Mechelle Dumont, ISABEL [address] [place] [address] Line Haul Truck Driver 06/27/23 09/15/23 documented as of this encounter
--- OUTSIDE RECORDS SUMMARY | 2024-06-29 17:08 | XMS_ITS | Encounter Summary ---
Author Organization [employer] Address [address] [facility] 7t [place] [address] Care Team Providers Care Sheet Mill Supervisor Name Role Phone Name, Beau FRANKS Primary Care Provider [phone] Bambi Jauregui Unavailable Mechelle Dumont RN Unavailable [phone] Reason for Visit * Reason Comments Med Refill Encounter Details Date Type Department Care Team ([facility] st Contact Info) Description 06/13/2023 Refill [facility] MEDICINE [address] [place], [place] [phone] Name, MD Beau [address] [place], [place] [phone] Asthma, unspecified asthma severity, unspecified whether complicated, [...] Description 08/18/2024 3:30 PM EDT Office Visit [facility] MEDICINE [address] [place] [address] NameBeau MD [address] [place] [address] documented as of this encounter Visit Diagnoses Diagnosis Asthma, unspecified asthma severity, unspecified whether complicated, unspecified whether persistent documented in this encounter Additional Health Concerns Assessment Noted Time PHQ-9 Depression Total Score: 19 023 3:46 PM EDT documented as of this encounter Care Teams Sheet Mill Supervisor Relationship Specialty Start Date End Date NameBeau MD [address] [place] [address] PCP - General Family Medicine 06/01/15 Bambi Jauregui Community Health Worker 06/27/2309/14 Mechelle Dumont, ISABEL [address] [place] [address] Search Marketing Specialist 06/27/23 09/15/23 documented as of this encounter
--- OUTSIDE RECORDS SUMMARY | 2024-06-29 17:08 | XMS_ITS | Encounter Summary ---
Author Organization [employer] Address [address] [place] [address] [address] [place] [address] Care Team Providers Care Leaf Fat Scraper Name Role Phone Name, Beau FRANKS Primary Care Provider [phone] Bambi Jauregui Unavailable Mechelle Dumont RN Unavailable [phone] Reason for Visit * Reason Onset Date Comments PT1 11/14/2022 Encounter Details Date Type Department Care Team (Late st Contact Info) Description 11/14/[address] [facility] MEDICINE [address] [place] [address] Name, MD Beau [address] [place] [address] PT1 Social History Tobacco Use Types Packs/Day [...] 10:01 AM EDT Allergy PT-1 Request Number [id number] is Pending Dr Salazar PT-1 Request Number [id number] is Pending Ortho PT-1 Request Number [id number] is Pending Pt has an active PT1 for [facility] * Telephone Encounter - Melva Ocampo - 11/14/2022 3:57 PM EDT PT1 Address verified Date: 11/20/22 Time: 2 pm Visits: Address: [address] [place] [address] Facility: Allergy Injection Wheel Chair: n/a Geomatics Professor Needed: no PT1 Date: 12/05/22 Time: 11:30 am Visits: Address: [address] [place] [address] Facility: Orthopedic Wheel Chair: n/a Geomatics Professor Needed: no PT1 Date: 12/07/22 Time: 11:15 am Visits: Address: [address] [place], [place] Facility: PCP Wheel Chair: n/a Geomatics Professor Needed: no PT1 Date: 12/07/22 Time: 2:30 pm Visits: Address: [address] [place] [address] [place] [address] Facility: Dr. Salazar Wheel Chair: n/a Geomatics Professor Needed: no documented in this encounter Plan of Treatment Upcoming Encounters Date Type Department Care Team (Late st Contact Info) Description 08/18/2024 3:30 PM EDT Office Visit [facility] MEDICINE [address] [place] [address] Name, MD Beau [address] [place] [address] documented as of this encounter Visit Diagnoses Not on filedocumented in this encounter Care Teams Leaf Fat Scraper Relationship Specialty Start Date End Date Name, MD Beau [address] [place] [address] PCP - General Family Medicine 06/01/15 Bambi Jauregui Community Health Worker 06/27/2309/14 Mechelle Dumont RN [address] [place] [address] Director Of Enterprise Architecture 06/27/23 09/15/23 documented as of this encounter
--- OUTSIDE RECORDS SUMMARY | 2024-06-29 17:08 | XMS_ITS | Clinical Summary ---
Author Organization [employer] Address [address] [place] [address] [address] [place] [address] Care Team Providers Care Curator Of Photography And Prints Name Role Phone Name, Beau FRANKS Primary Care Provider [phone] Allergies Active Allergy Reactions Criticality Noted Date [...] DAY 100 each 3 05/02/19 24 Active clindamycin (Cleocin) 300 MG capsule Take [...] candidiasis. Do not swallow. 1 each 11 07/12/19 24 025 Active acetaminophen (Tylenol) 500 MG tablet Take 1 tablet (500 mg) by mouth every 6 (six) hours if needed for mild pain for up to 20 doses. 20 tablet 09/27/19 24 Active bumetanide (Bumex) 1 MG tablet Take 1 mg by mouth every other day. 09/21/19 24 Active tadalafil (Cialis) 20 MG tabletIndicatio ns:Erectile dysfunction, unspecified erectile dysfunction type TAKE 1 TABLET BY MOUTH 1 HOUR BEFORE SEXUAL ACTIVITY EVERY DAY NEEDED 10 tablet 2 12/13/19 24 Active spironolactone (Aldactone) 25 MG tablet Take 1 tablet (25 mg) by mouth every other day. 01/30/20 24 025 Active ketoconazole (NIZOral) 2 % shampooIndicati ons:Seborrheic dermatitis APPLY TOPICALLY 2 TIMES A WEEK 120 mL 2 03/26/19 25 Active omeprazole (PriLOSEC) [address] capsule TAKE 1 CAPSULE(20 MG) BY MOUTH TWICE DAILY 180 capsule 1 04/02/19 25 Active magnesium oxide (Mag-Ox) 400 MG tablet TAKE 1 TABLET BY MOUTH THREE TIMES DAILY 90 tablet 3 04/30/19 25 Active Antacid Calcium 500 MG chewable tablet CHEW 1 TABLET BY MOUTH IN THE MORNING, AT NOON, IN THE EVENING, AND AT BEDTIME NEEDED FOR INDIGESTION OR HEARTBURN 90 tablet 11 05/08/19 25 Active gabapentin (Neurontin) 300 MG capsuleIndicati ons: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 (CMS/HCC) TAKE 1 CAPSULE(300 MG) BY MOUTH THREE TIMES DAILY 90 capsule 05/19/19 25 Active albuterol (2.5 MG/3ML) 0.083% nebulizer solutionIndicat ions:Asthma, unspecified asthma severity, unspecified whether complicated, unspecified whether persistent USE 3 ML VIA NEBULIZER EVERY MORNING AND EVERY AFTERNOON AND EVERY NIGHT AT BEDTIME 90 mL 1 05/28/19 25 Active glimepiride (Amaryl) 2 MG tablet TAKE 1 TABLET BY MOUTH EVERY DAY 90 tablet 05/29/19 25 Active Ventolin HFA 108 (90 Base) MCG/ACT inhalerIndicati ons:Asthma, unspecified asthma severity, unspecified whether complicated, unspecified whether persistent INHALE 2 PUFFS BY MOUTH EVERY 4 TO 6 HOURS NEEDED 18 g 1 06/10/19 25 Active pravastatin (Pravachol) 20 MG tablet TAKE 1 TABLET BY MOUTH AT BEDTIME 90 tablet 1 06/12/19 25 Active metFORMIN (Glucophage) 1000 MG tablet TAKE 1 TABLET BY MOUTH TWICE DAILY WITH THE MORNING AND EVENING MEAL 180 tablet 06/17/19 25 Active lisinopril 40 MG tablet TAKE 1 TABLET BY MOUTH DAILY AFTER LUNCH 90 tablet 1 06/17/19 25 Active Diclofenac Sodium 1 % gelIndications: Chronic pain syndrome APPLY 2 GRAMS TOPICALLY TO THE AFFECTED AREA FOUR TIMES DAILY NEEDED FOR BACK PAIN 100 g 1 06/30/19 25 Active pravastatin (Pravachol) 20 MG tablet TAKE 1 TABLET BY MOUTH AT BEDTIME 90 tablet 1 12/10/19 24 025 Discontinued lisinopril 40 MG tablet TAKE 1 TABLET BY MOUTH DAILY AFTER LUNCH 90 tablet 1 12/16/19 24 025 Discontinued metFORMIN (Glucophage) 1000 MG tablet TAKE 1 TABLET BY MOUTH once a day 01/29/20 24 025 Discontinued Diclofenac Sodium 1 % gelIndications: Chronic pain syndrome APPLY 2 GRAMS TOPICALLY TO THE AFFECTED AREA FOUR TIMES DAILY NEEDED FOR BACK PAIN 100 g 1 04/08/19 25 025 Discontinued Ventolin HFA 108 (90 Base) MCG/ACT inhalerIndicati ons:Asthma, unspecified asthma severity, unspecified whether complicated, unspecified whether persistent INHALE 2 PUFFS BY MOUTH EVERY 4 TO 6 HOURS NEEDED 18 g 1 05/06/19 25 025 Discontinued Active Problems Problem Noted Date Diagnosed Date Toenail avulsion 03/27/2024 Assessment & Plan (03/27/2024 12:25 PM EST): Toenail bed was cleaned with iodine swab, apply antibiotic ointment on the bed and surrounding tissue and then dressed with sterile 2x2 then covered with sterile gauze roll. Advised to keep it until Saturday when he will see automatic lathe setter, as much as possible, I gave him [...] associa florentino with type 2 diabetes mellitus 04/05/2017 Essential hypertension 09/27/2015 Obstructive sleep apnea syndrome 07/22/2013 Polyp of gallbladder 07/01/2012 Steatosis of liver 07/01/2012 Abnormal LFTs 06/17/2012 Anemia 06/17/2012 Foot pain 06/17/2012 Vitamin D deficiency 06/17/2012 Tinea pedis 11/23/2011 Lumbar post-laminectomy syndrome 09/24/2011 Moderate asthma without complication 08/08/2011 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 Encounters Date Type Department Care Team Description 06/29/2024 Orders Only GENERIC EXTERNAL DATA DEPARTMENT Provider, Generic External Data 06/27/2024 Refill [facility] [address] [place], [place] [phone] Name, MD Beau Chronic pain syndrome 06/13/2024 Refill [facility] MEDICINE [address] [place], [place] [phone] Name, MD Beau 06/12/2024 Telephone [facility] [address] [place] [address] Name, MD Beau Durable Medical Equipment 06/11/2024 Refill [facility] MED[facility] [address] [place] [address] Beau Stewart MD 06/10/2024 Telephone [facility] [address] [place] [address] Beau Stewart MD Durable Medical Equipment 06/08/2024 Refill [facility] [address] [place] [address] Beau Stewart MD Asthma, unspecified asthma severity, unspecified whether complicated, unspecified whether persistent 06/02/2024 Refill [facility] [address] [place], [place] [phone] Beau Stewart MD Asthma, unspecified asthma severity, unspecified whether complicated, unspecified whether persistent 05/27/2024 Refill [facility] [address] [place] [address] Kindra Nevarez DO 05/27/2024 Refill [facility] [address] [place] [address] Beau Stewart MD Asthma, unspecified asthma severity, unspecified whether complicated, unspecified whether persistent 05/20/2024 Population Health Risk Score [facility] () Department [address] [place] [phone] Provider, Population Health Generic 05/18/2024 Orders Only GENERIC EXTERNAL DATA DEPARTMENT Provider, Generic External Data 05/17/2024 Refill [facility] [address] [place] [address] Beau Stewart MD Polyneuropathy due to type 2 diabetes mellitus ([facility]) 05/14/2024 Orders Only GENERIC EXTERNAL DATA DEPARTMENT Provider, Generic External Data 05/07/2024 Telephone [facility] MEDICINE [address] [place] [address] Erlinda Swain MA may recalls 05/06/2024 Refill [facility] [address] [place] [address] Beau Stewart MD 05/04/2024 Refill [facility] [address] [place], [place] [phone] Beau Stewart MD Asthma, unspecified asthma severity, unspecified whether complicated, unspecified whether persistent 04/30/2024 Orders Only GENERIC EXTERNAL DATA DEPARTMENT Provider, Generic External Data 04/29/2024 Refill [facility] [address] [place] [address] Beau Stewart MD 04/20/2024 11:00 AM EST Office Visit [facility] OPTOMETRY [address] [place] [address] Alvin, Florecita, OD Presbyopia of both eyes (Primary Dx) 04/08/2024 Refill [facility] MEDICINE [address] [place] [address] Beau Stewart MD Asthma, unspecified asthma severity, unspecified whether complicated, unspecified whether persistent 04/07/2024 Refill [facility] [address] [place] [address] Felecia Gunderson NP Polyneuropathy due to type 2 diabetes mellitus ([facility]); Chronic pain syndrome 04/07/2024 Refill [facility] MEDICINE [address] [place] [address] Beau Stewart MD Chronic pain syndrome 04/07/2024 Refill [facility] MEDICINE [address] [place] [address] Laura Russell MD Asthma, unspecified asthma severity, unspecified whether complicated, unspecified whether persistent 04/01/2024 Refill [facility] MED[facility] [address] [place] [address] Beau Stewart MD from Last 3 Months Immunizations Name Administration [...] 01/29/2024 3:04 PM EST Plan of Treatment Upcoming Encounters Date Type Department Care Team (Late st Contact Info) Description 08/18/2024 3:30 PM EDT Office Visit [facility] MEDICINE [address] [place] [address] Name, MD Beau [address] [place] [address] Health Maintenance Due Date Last Done Comments [...] 2023 11/23/2011, 2007 Lipid Panel 03/20/2024 03/20/2023, 10/0 05/2020, 04/14/2020 Diabetes: Hemoglobin A1C 04/02/2024 024, 10/04/2023, 07/12/2023, Additional history exists Diabetes: Urine Protein Screening 07/24/2024 07/25/2023, 03/20/2023, 06/13/2021, Additional history exists Alcohol/Substance Use Screening 01/28/2025 01/29/2024 Depression Screening 01/28/2025 01/29/2024, 01/29/20 SDOH Screening 01/28/2025 01/29/2024 Eye Exam 03/05/2025 03/05/2024, 10/2024, 03/05/2024, Additional history exists Tobacco Screening 03/05/2025 03/05/2024 Diabetes: Foot Exam 03/27/2025 03/27/2024, 03/27/2024, 03/27/2024, Additional history exists Dental X-Ray: Full Mouth 09/27/2026 09/27/2023, 0 10/2022 Colonoscopy 06/09/2030 06/09/2020 Colorectal Cancer Screening [...] WHOLE BLOOD Routine 06/29/2024 3:39 PM EDT GLUCOSE, WHOLE BLOOD Routine 05/18/2024 2:39 PM EDT VITAMIN D,25-OH,TOTAL,IA Routine 05/14/2024 2:23 PM EDT FERRITIN Routine 05/14/2024 2:23 PM EDT COMPREHENSIVE METABOLIC PANEL Routine 05/14/2024 2:23 PM EDT CBC WITH AUTO DIFFERENTIAL Routine 05/14/2024 2:23 PM EDT URIC ACID Routine 04/30/2024 4:21 PM EST CREATININE, SERUM Routine 04/30/2024 4:2 1 PM EST UREA NITROGEN (BUN) Routine 04/30/2024 4 :21 PM EST ELECTROLYTE PANEL Routine 04/30/2024 4:2 1 PM EST HEMOGLOBIN A1C Routine 01/01/2024 2:50 [...] Recently Relevant to Health Maintenance Results * Glucose, Whole Blood (06/29/2024 3:39 PM EDT) Only the most recent of2 resultswithin the time period is included. Glucose, Whole Blood 95 60 - 115 mg/dL [facility] Comment:METER #: [id number] 5Testing performed in the Endocrinology Department [address] , [address], [facility]. 06/29/2024 3:39 PM EDT 06/29/2024 3:45 PM EDT Generic External Data Provider LAB BLOOD ORDERAB LES Final Result Performing Organization Address [facility]/ZIP Co de Phone Number [facility] [address] [place] [address] [phone] * Vitamin D, 25-Hydroxy, Total, Immunoassay (05/14/2024 2:23 PM EDT) Pathologist [facility] Vitamin D 25-OH Total 30.2 >30 ng/mL [facility] Comment: Health Based Reference Values*< 20 ??ng/mL ??Qbfxxfxah43-19 ng/mL ??Insufficient> 30 ??ng/mL ??Sufficient*Radha MCKENZIE. N Engl J Med. 2007;357:266-280There is no well-established upper level of normal vitamin Dlevels. Some laboratories use 50 ng/mL as an upper limit ofnormal. However, toxicity is patient-dependent and may occurat any level. Careful correlation with the patient'spresentation is necessary and, if there is concern forvitamin D toxicity, treatment should be consideredirrespective of the serum level.Care must be taken in interpreting Vitamin D results fromdifferent laboratories and methodologies. ??Published datademonstrated that results from patients undergoinghemodialysis may show a negative bias when tested withvarious automated 25-OH vitamin D assays when compared toLC- MS/MS.When testing samples from patients whose predominant form ofVitamin D is Vitamin D2, such as patients receiving VitaminD2 supplementation, results that are subtherapeutic shouldbe confirmed with another method such as LC-MS/MS. 05/14/2024 2:23 PM EDT 05/14/2024 2:25 PM EDT Generic External Data Provider LAB BLOOD ORDERAB LES Final Result Performing Organization Address [facility] Co de Phone Number [facility] [address] [place] [address] [phone] * (ABNORMAL) CBC auto differential (05/14/2024 2:23 PM EDT) White Blood Count 6.8 4.8 - 10.8 X10*3/uL [facility] Red Blood Count 4.04(L) 4.60 - 5.80 X10*6/uL [facility] Hemoglobin 9.3(L) 14.0 - 18.0 g/dl [facility] Hematocrit 30.8(L) 42.0 - 52.0 % [facility] Mean Corpuscular Volume 76.2(L) 80.0 - 98.0 fL [facility] Mean Corpuscular Hemoglobin 23.0(L) 27.0 - 33.0 pg [facility] Mean Corpuscular HGB Conc 30.2(L) 31.0 - 36.0 g/dl [facility] Red Cell Distribution Width 15.4 11.0 - 16.0 % [facility] Platelet Count 314 160 - 400 X10*3/uL [facility] Mean Platelet Volume 9.3(L) 9.4 - 12.4 fL [facility] Neutrophils Percent Auto 67.3 45 - 73 % [facility] Imm Gran Pct Auto 0.4 0.0 - 0.4 % [facility] Lymphocytes Percent Auto 25.8 20 - 40 % [facility] Monocytes Percent Auto 6.2 2 - 11 % [facility] Eosinophils Percent Auto 0.0 0 - 4 % [facility] Basophils Percent Auto 0.3 0 - 2 % [facility] NRBC Pct Auto 0.0 0.0 - 0.2 /100WBC [facility] Neutrophils Absolute Auto 4.5 2.0 - 8.3 x10*3/uL [facility] Imm Gran Abs Auto 0.03 0.00 - 0.03 X10*3/uL [facility] Lymphocytes Absolute Auto 1.7 1.2 - 4.9 X10*3/uL [facility] Monocytes Absolute Auto 0.4 0.1 - 1.2 X10*3/uL [facility] Eosinophils Absolute Auto 0.0 0.0 - 0.4 X10*3/uL [facility] Basophils Absolute Auto 0.0 0.0 - 0.2 X10*3/uL [facility] NRBC Abs Auto 0.000 0.0 - 0.012 X10*3/uL [facility] 05/14/2024 2:23 PM EDT 05/14/2024 2:25 PM EDT Generic External Data Provider LAB BLOOD ORDERAB LES Final Result Performing Organization Address City/[facility]/ZIP Co de Phone Number [facility] [address] [place] [phone] * (ABNORMAL) Ferritin (05/14/2024 2:23 PM EDT) Pathologist [facility] Ferritin 10(L) 20 - 250 ng/mL [facility] 05/14/2024 2:23 PM EDT 05/14/2024 2:25 PM EDT Generic External Data Provider LAB BLOOD ORDERAB LES Final Result Performing Organization Address City/[facility]/ZIP Co de Phone Number [facility] [address] [place] [phone] * (ABNORMAL) Comprehensive Metabolic Panel (05/14/2024 2:23 PM EDT) Pathologist [facility] Sodium 137 135 - 145 mmol/L [facility] Potassium 3.7 3.3 - 5.1 mmol/L [facility] Chloride 103 96 - 108 mmol/L [facility] Carbon Dioxide 28 22 - 29 mmol/L [facility] Anion Gap 10(L) 12 - 20 [facility] Urea Nitrogen (BUN) 12 9 - 16 mg/dL [facility] Creatinine, Serum 1.00 0.5 - 1.4 mg/dL [facility] Estimated Glomerular Filt Rate >60 [facility] Comment:Chronic Kidney Disea se: Estimated GFR < 60 mL/min/1.96u0[place]ji Kidney Disease: Estimated GFR < 15 mL/min/1.73m2 Glucose 185(H) 60 - 115 mg/dL [facility] Calcium 8.2(L) 8.4 - 10.2 mg/dL [facility] Bilirubin, Total 0.2 0.0 - 1.0 mg/dL [facility] Aspartate Amino Transferase 29 5 - 37 U/L [facility] Alanine Aminotransferase 22 0 - 40 U/L [facility] Total Protein 7.1 6.5 - 8.0 g/dL [facility] Albumin Level 3.4(L) 3.5 - 5.0 g/dL [facility] Alkaline Phosphatase 164(H) 39 - 117 U/L [facility] 05/14/2024 2:23 PM EDT 05/14/2024 2:25 PM EDT Generic External Data Provider LAB BLOOD ORDERAB LES Final Result Performing Organization Address [facility] Co de Phone Number [facility] [address] [place] [phone] * Creatinine, Serum (04/30/2024 4:21 PM EST) Creatinine, Serum 1.18 0.5 - 1.4 mg/dL [facility] Estimated Glomerular Filt Rate >60 [facility] Comment:Chronic Kidney Disea se: Estimated GFR < 60 mL/min/1.27d8Pncruy Kidney Disease: Estimated GFR < 15 mL/min/1.73m2 04/30/2024 4:21 PM EST 04/30/2024 4:21 PM EST us Generic External Data Provider LAB BLOOD ORDERAB LES Final Result Performing Organization Address [facility] Co de Phone Number [facility] [address] [place] [phone] * (ABNORMAL) Uric acid (04/30/2024 4:21 PM EST) Uric Acid 7.3(H) 3.4 - 7.0 mg/dL [facility] 04/30/2024 4:21 PM EST 04/30/2024 4:21 PM EST Generic External Data Provider LAB BLOOD ORDERAB LES Final Result Performing Organization Address [facility] Co de Phone Number [facility] [address] [place] [phone] * BUN (Blood Urea Nitrogen) (04/30/2024 4:21 PM EST) [facility] Urea Nitrogen (BUN) 14 9 - 16 mg/dL [facility] 04/30/2024 4:21 PM EST 04/30/2024 4:21 PM EST Generic External Data Provider LAB BLOOD ORDERAB LES Final Result Performing Organization Address [facility] Phone Number [facility] [address] [place] [phone] * (ABNORMAL) Electrolyte Panel (04/30/2024 4:21 PM EST) [facility] Sodium 140 135 - 145 mmol/L [facility] Potassium 4.4 3.3 - 5.1 mmol/L [facility] Chloride 101 96 - 108 mmol/L [facility] Carbon Dioxide 31(H) 22 - 29 mmol/L [facility] Anion Gap 12 12 - 20 [facility] 04/30/2024 4:21 PM EST 04/30/2024 4:21 PM EST Generic External Data Provider LAB BLOOD ORDERAB LES Final Result Performing Organization Address [facility] Co de Phone Number [facility] [address] [place] [phone] * (ABNORMAL) Hemoglobin A1c (01/01/2024 2:50 PM EST) [facility] Hemoglobin A1c 7.0(H) <6.0 % [facility] Comment:Hemoglobin A1C Refer ence Range Adults: 4.8 - 6.0 % Non diabetic: < 6.0 % Goal: < 7.0 %Additional Action Suggested: > 8.0 %Note: Hemoglobin A1c results are invalid for patients with abnormal amounts of HbF. Blood transfusions may impact the HbA1c concentration in the patient sample. Estimated Average Glucose 154 mg/dL [facility] Comment:eAG = Estimated ave rage glucose which is %A1C expressed asaverage glucose, using the formula of the [id number] Glucose study (ADAG), Diabetes Care, Vol.31,#8,2007 01/01/2024 2:50 PM EST 01/01/2024 2:50 PM EST us Generic External Data Provider LAB BLOOD ORDERAB LES Final Result Performing Organization Address [facility]/ZIP Co de Phone Number [facility] [address] [place] [phone] * Hepatitis C Antibody with Reflex to HCV, RNA, Quantitative, Real-Time PCR (11/06/2023 3:26 PM EDT) Pathologist [facility] Hepatitis C Antibody Nonreactive Nonreactive [facility] Comment:Antibodies to HCV no t detected; does not exclude early acuteHCV infection. Blood Venous blood specimen / Unknown 11/06/2023 3:26 PM EDT 11/06/2023 3:58 PM EDT us Beau Stewart MD LAB BLOOD ORDERABLES Final Resul t Performing Organization Address [facility]/ZIP Co de Phone Number [facility] [address] [place] [phone] * Albumin, Random Urine W/Creatinine (07/25/2023 2:20 PM EDT) Creatinine, Urine 18.16 mg/dL [facility] Microalbumin Urine <5.0 mg/L [facility] Microalbum Creatinine Ratio Ur TNP <30 ug/mg cr [facility] Comment:Unable to calculate albumin/creatinine ratio due to lowmicroalbumin or creatinine result. 07/25/2023 2:20 PM EDT 07/25/2023 4:07 PM EDT Generic External Data Provider LAB URINE ORDERAB LES Final Result Performing Organization Address [facility] Co de Phone Number [facility] [address] [place] [phone] * (ABNORMAL) Lipid Panel, Standard (03/20/2023 2:08 PM EST) Triglycerides 159(H) <150 mg/dL [facility] Comment:Desirable Triglyceri de: less than 150 mg/dLBorderline High Triglyceride 150-199 mg/dLHigh Triglyceride: 200-499 mg/dLVery High Triglyceride: greater than or equal to 5OO mg/dL Cholesterol 134 <200 mg/dL [facility] Comment:Desirable Cholestero l: less than 200 mg/dLBorderline High Cholesterol: 200-239 mg/dLHigh Cholesterol: greater than 239 mg/dL LDL Cholesterol Calculated 65 <100 mg/dL [facility] Comment:Desirable LDL: less than 100 mg/dLNear Optimal/Above Optimal LDL: 110- 129 mg/dLBorderline High LDL: 130-159 mg/dLHigh LDL: 160-189 mg/dLVery High LDL: greater than or equal to 190 mg/dL HDL Cholesterol 38(L) >40 mg/dL [facility] Comment:Desirable HDL: great er than 40 mg/dL Note: This HDL assay may give artificially low results in patients with liver disease. 03/20/2023 2:08 PM EST 03/20/2023 2:09 PM EST us Generic External Data Provider LAB BLOOD ORDERAB LES Final Result Performing Organization Address [facility]/ZIP Co de Phone Number [facility] [address] [place] [phone] [phone] * Hm Colonoscopy (06/09/2020 2:16 PM EDT) Colonoscopy Normal Normal Narrative Radha Aviles - 06/09/2020 2:16 PM EDT [place] Historical Provider MD HEALTH MAINTENANCE Final Result from Last 3 Months or Most Recently Relevant to Health Maintenance Insurance [facility] C3 DENTAL-[facility] MEDICAID STAND ADULT Care Teams Curator Of Photography And Prints Relationship Specialty Start Date End Date Name, MD Beau [address] [place] [phone] PCP - General Family Medicine 06/01/15
--- OUTSIDE RECORDS SUMMARY | 2024-06-29 17:08 | XMS_ITS | Encounter Summary ---
Author Organization [facility] Address [address] [place] [address] [address] [place] [address] Care Team Providers Care Squad Sergeant Name Role Phone Name, Beau FRANKS Primary Care Provider [phone] Bambi Jauregui Unavailable Mechelle Dumont RN Unavailable [phone] Encounter Details Date Type Department Care Team (Late st Contact Info) Description 03/07/2022 Orders Only [facility] MEDICINE [address] [place] [phone] Ekaterina Pappas LPN Social History Tobacco Use [...] Description 08/18/2024 3:30 PM EDT Office Visit [facility] MEDICINE [address] [place] [address] [phone] Name, MD Beau [address] [place], [place] [phone] documented as of this encounter Visit Diagnoses Not on filedocumented in this encounter Care Teams Squad Sergeant Relationship Specialty Start Date End Date NameBeau MD [address] [place] [address] [phone] PCP - General Family Medicine 06/01/15 Bambi Jauregui Community Health Worker 06/27/2309/14 Mechelle Dumont RN [address] [place] [phone] Vessel Scrapper 06/27/23 09/15/23 documented as of this encounter
--- OUTSIDE RECORDS SUMMARY | 2024-06-29 17:08 | XMS_ITS | Encounter Summary ---
Author Organization [employer] Address [address] 7t [place] [address] Care Team Providers Care Tandem Operator Name Role Phone Name, Beau FRANKS Primary Care Provider [phone] Reason for Visit * Reason Comments Med Refill Encounter Details Date Type Department Care Team ([facility] st Contact Info) Description 06/02/2024 Refill [facility] [address] [place], [place] [phone] Name, MD Beau [address] [place] [address] Asthma, unspecified asthma severity, unspecified whether complicated, [...] 08/18/2024 3:30 PM EDT Office Visit [facility] [address] [place] [address] NameBeau MD [address] [place] [address] documented as of this encounter Visit Diagnoses Diagnosis Asthma, unspecified asthma severity, unspecified whether complicated, unspecified whether persistent documented in this encounter Additional Health Concerns Assessment Noted Time PHQ-9 Depression Total Score: 24 024 3:46 PM EST documented as of this encounter Care Teams Tandem Operator Relationship Specialty Start Date End Date NameBeau MD [address] [place] [address] PCP - General Family Medicine 06/01/15 documented as of this encounter
--- OUTSIDE RECORDS SUMMARY | 2024-06-29 17:08 | XMS_ITS | Encounter Summary ---
Author Organization [employer] [facility] Address [address] [facility] 7t [place] [address] Care Team Providers Care Ophthalmic Surgeon Name Role Phone Name, Beau FRANKS Primary Care Provider [phone] Bambi Jauregui Unavailable Mechelle Dumont RN Unavailable [phone] Encounter Details Date Type Department Care Team (Late st Contact Info) Description 03/26/2022 Orders Only [facility] CHC MED & PEDS [address] [place] [address] Kindra Woodall LPN Social History Tobacco Use [...] Description 08/18/2024 3:30 PM EDT Office Visit [facility] [address] [place], [place] [phone] NameBeau MD [address] [place], [place] [phone] documented as of this encounter Visit Diagnoses Not on filedocumented in this encounter Care Teams Ophthalmic Surgeon Relationship Specialty Start Date End Date NameBeau MD [address] [place], [place] [phone] PCP - General Family Medicine 06/01/15 Bambi Jauregui Community Health Worker 06/27/2309/14 Mechelle Dumont RN [address] [place] [phone] Manager Asset Management 06/27/23 09/15/23 documented as of this encounter
--- OUTSIDE RECORDS SUMMARY | 2024-06-29 17:08 | XMS_ITS | Encounter Summary ---
Author Organization [employer] Address [address] [facility] 7t [place] [address] Care Team Providers Care Fireproof Door Maker Name Role Phone Name, Beau FRANKS Primary Care Provider [phone] Reason for Visit * Reason Comments Med Refill Encounter Details Date Type Department Care Team ([facility] Contact Info) Description 06/27/2024 Refill [facility] CHC MED & PEDS [address] [place], [place] [phone] Name, MD Beau [address] [place] [address] Chronic pain syndrome Social History Tobacco Use [...] Description 08/18/2024 3:30 PM EDT Office Visit [facility] [address] [place] [address] Name, MD Beau [address] [place] [address] documented as of this encounter Visit Diagnoses Diagnosis Chronic pain syndrome documented in this encounter Additional Health Concerns Assessment Noted Time PHQ-9 Depression Total Score: 24 024 3:46 PM EST documented as of this encounter Care Teams Fireproof Door Maker Relationship Specialty Start Date End Date Name, MD Beau [address] [place] [address] PCP - General Family Medicine 06/01/15 documented as of this encounter
--- OUTSIDE RECORDS SUMMARY | 2024-06-29 17:08 | XMS_ITS | Encounter Summary ---
Author Organization [employer] [facility] Address [address] [facility] 7t [place] [address] Care Team Providers Care Licensed Practical Vocational Nurse Name Role Phone Name, Beau FRANKS Primary Care Provider [phone] Bambi Jauregui Unavailable Mechelle Dumont RN Unavailable [phone] Encounter Details Date Type Department Care Team (Late st Contact Info) Description 02/28/2022 Orders Only [facility] CHC MED & PEDS [address] [place] [address] Kindra Woodall LPN Social History Tobacco Use [...] Description 08/18/2024 3:30 PM EDT Office Visit [facility] MEDICINE [address] [place], [place] [phone] NameBeau MD [address] [place], [place] [phone] documented as of this encounter Visit Diagnoses Not on filedocumented in this encounter Care Teams Licensed Practical Vocational Nurse Relationship Specialty Start Date End Date NameBeau MD [address] [place], [place] [phone] PCP - General Family Medicine 06/01/15 Bambi Jauregui Community Health Worker 06/27/2309/14 Mechelle Dumont RN [address] [place] [phone] [place] 06/27/23 09/15/23 documented as of this encounter
--- OUTSIDE RECORDS SUMMARY | 2024-06-29 17:08 | XMS_ITS | Encounter Summary ---
Author Organization [employer] [facility] Address [address] [place] [address] 7[address] [place] [address] Care Team Providers Care Tack Welder Name Role Phone Name, Beau FRANKS Primary Care Provider [phone] Bambi Jauregui Unavailable Mechelle Dumont RN Unavailable [phone] Encounter Details Date Type Department Care Team (Late st Contact Info) Description 03/02/2022 Orders Only [facility] MED[facility] [address] [place] [address] Lelia Moeller, RN [address] [place] [address] Social History Tobacco Use Types Packs/Day Years [...] Description 08/18/2024 3:30 PM EDT Office Visit [facility] [address] [place] [address] Beau Stewart MD [address] [place] [address] documented as of this encounter Visit Diagnoses Not on filedocumented in this encounter Care Teams Tack Welder Relationship Specialty Start Date End Date Beau Stewart MD [address] [place] [address] PCP - General Family Medicine 06/01/15 Bambi Jauregui Community Health Worker 06/27/2309/14 Mechelle Dumont RN [address] [place] [address] Paper Mill Supervisor 06/27/23 09/15/23 documented as of this encounter
--- OUTSIDE RECORDS SUMMARY | 2024-06-29 17:08 | XMS_ITS | Encounter Summary ---
Author Organization [employer] [facility] Address [address] [place] [address] 7t [place] [address] Care Team Providers Care Roll Icer Machine Name Role Phone Name, Beau FRANKS Primary Care Provider [phone] Bambi Jauregui Unavailable Mechelle Dumont RN Unavailable [phone] Encounter Details Date Type Department Care Team (Late Contact Info) Description 07/02/2022 Orders Only [facility] MED[facility]INE [address] [place] [address] Ekaterina Pappas LPN Social History Tobacco Use [...] Description 08/18/2024 3:30 PM EDT Office Visit [facility] [address] [place] [address] Name, MD Beau [address] [place] [address] [phone] documented as of this encounter Visit Diagnoses Not on filedocumented in this encounter Care Teams Roll Icer Machine Relationship Specialty Start Date End Date Name, MD Beau [address] [place] [address] PCP - General Family Medicine 06/01/15 Bambi Jauregui Community Health Worker 06/27/2309/14 Mechelle Dumont RN [address] [place] [address] Senior Regulatory Affairs Specialist 06/27/23 09/15/23 documented as of this encounter
== END 2024-06-29 15:52 | disposition home or self-care (01) ==
LOC: HO.ENCR 15:36
PROVIDERS: PCP Internal Medicine Geriatric Medicine; Visit Provider Internal Medicine Endocrinology, Diabetes & Metabolism
DX: E11.65 Type 2 diabetes mellitus with hyperglycemia (principal); Z79.4 Long term (current) use of insulin
CPT/HCPCS: 99214

== ENCOUNTER → 2024-06-29 15:35 | Outpatient (BNVA) | payer MEDICAID, SELFPAY | PROVIDERS: PCP Internal Medicine Geriatric Medicine; Visit Provider Internal Medicine Endocrinology, Diabetes & Metabolism | DX: E11.65 Type 2 diabetes mellitus with hyperglycemia (principal); Z79.4 Long term (current) use of insulin; Z79.84 Long term (current) use of oral hypoglycemic drugs | CPT/HCPCS: 82947; 99212 ==

== ENCOUNTER 2024-07-07 15:04 | Outpatient (REF) | payer MEDICAID, SELFPAY ==
[2024-07-07 16:02] LABS: Creatinine Urine 117.28 mg/dL; Microalbum/Creatinine Ratio Ur 26.4 ug/mg cr (<30)
--- OUTSIDE RECORDS SUMMARY | 2024-07-07 16:04 | XMS_ITS | Clinical Summary ---
Author Organization [facility] Address [address] [place] [address] Phone Care Team Providers Care Budget Engineer Name Role Phone Name, Beau FRANKS Primary Care Provider [phone] Medications albuterol (2.5 MG/3ML) 0.083% nebulizer solution [...] Insurance Medicaid [place] Care Teams Budget Engineer Relationship Specialty Start Date End Date Name, MD Beau [address] [place] [phone] PCP - General Internal Medicine 10/05/21
[2024-07-07 16:13] LABS: Alanine Aminotransferase 30 U/L (0-40); Albumin Level 3.6 g/dL (3.5-5.0); Anion Gap 13 (12-20); Aspartate Amino Transferase 42 U/L (5-37); Bilirubin Direct 0.1 mg/dL (0.0-0.5); Bilirubin Total 0.3 mg/dL (0.0-1.0); Blood Urea Nitrogen 13 mg/dL (9-16); Calcium 8.3 mg/dL (8.4-10.2); Carbon Dioxide 24 mmol/L (22-29); Chloride 104 mmol/L (96-108); Cholesterol 128 mg/dL (<200); Estimated Glomerular Filt Rate > 60; Glucose Random 152 mg/dL (60-115); HDL Cholesterol 36 mg/dL (>40); LDL Cholesterol Calculated 53 mg/dL (<100); Potassium 4.3 mmol/L (3.3-5.1); Sodium 137 mmol/L (135-145); Total Protein 7.1 g/dL (6.5-8.0); Triglycerides 195 mg/dL (<150)
[2024-07-07 16:14] LABS: B Type Natriuretic Peptide 33 pg/mL (<100)
[2024-07-07 16:15] LABS: Estimated Average Glucose 160 mg/dL; Hemoglobin A1C 133.7698 umol/L; Hemoglobin A1c % 7.2 % (<6.0); Total Hemoglobin (HGBA1C) 2405.2058 umol/L
[2024-07-07 17:42] LABS: Alkaline Phosphatase 173 U/L (39-117)
== END 2024-07-07 15:05 | disposition home or self-care (01) ==
LOC: HO.LAB 15:04
PROVIDERS: PCP Internal Medicine Geriatric Medicine; Visit Provider Physician Assistant
DX: E11.69 Type 2 diabetes mellitus with other specified complication (principal); I10 Essential (primary) hypertension; Z79.4 Long term (current) use of insulin; E78.5 Hyperlipidemia, unspecified; R79.89 Other specified abnormal findings of blood chemistry; N52.1 Erectile dysfunction due to diseases classified elsewhere
CPT/HCPCS: 36415; 80048; 80061; 80076; 82043; 82570; 83036; 83880; 99212

== ENCOUNTER 2024-07-07 15:50 | Outpatient (AMB) | payer MEDICAID, SELFPAY ==
--- NOTE | 2024-07-07 15:56 | A.OFFVIS_ITS ---
Intake Visit Reasons: 6M follow up Intake Note: Patient presents for 6 month follow up Urology Medications: Tadalafil Blood Thinner: none Physicist Light And Optics Required: No Accompanied by: Self / Same As Patient Allergies pollen extracts Allergy (Verified 07/07/24 20:43) Unknown Medication List - Last Reconciled 07/07/24 by STARR Sahu acetaminophen 500 mg PO Q6H PRN albuterol sulfate 90 mcg/actuation (Ventolin HFA) 2 puffs inhalation Q4-6H PRN allopurinol 100 mg PO DAILY blood-glucose sensor (Federated Mediayle Monty 3 Plus Sensor device) Use daily As directed to monitor glucose blood-glucose,grounds person,cont (FreeStyle Monty 3 [place]) Use daily As directed to monitor blood glucose bumetanide 2 mg (2 x 1 mg) PO DAILY 90 days calcium carbonate (Calcium Antacid) mg PO TID diclofenac sodium 1% 2 grams topical QID PRN fluticasone furoate 200 mcg/actuation (Arnuity Ellipta) 1 inh inhalation DAILY fluticasone furoate-vilanterol 200-25 mcg/dose (Breo Ellipta) 1 inh inhalation DAILY gabapentin 300 mg PO TID glimepiride 2 mg PO DAILY glucagon 3 mg/actuation 3 mg intranasal ONCE PRN glucose (Dex4 Glucose) 16 grams (4 x 4 gram) PO Q15M PRN 30 days insulin glargine U-300 conc (Toujeo Max U-300 SoloStar) 78 units (0.26 mL) subcut DAILY insulin lispro 28 units (0.28 mL) subcut TID Lactobacillus rhamnosus GG (Culturelle) 1 cap PO DAILY 90 days lisinopril 40 mg PO DAILY magnesium oxide 400 mg PO TID metformin ER 500 mg PO BID omeprazole 20 mg PO BID pen needle, diabetic Use QID As directed pravastatin 20 mg PO BEDTIME simethicone (Gas Relief (simethicone)) 125 mg PO BID-QID PRN 30 days sodium chloride 0.9% 3 mL inhalation 6XD PRN spironolactone 25 mg PO DAILY tadalafil (Cialis) 20 mg PO .PRN PRN 90 days tadalafil (Cialis) 5 mg PO DAILY 90 days HPI Comments Details: Manjit is a very pleasant 54-year-old male patient of Dr. Stewart. He has a past medical history of iron deficiency anemia, cirrhosis, chronic lumbar radiculopathy, diabetic neuropathy associated with diabetes mellitus, obesity, acid reflux, asthma, and obstructive sleep apnea on CPAP. He presents to the office today for follow-up of his erectile dysfunction. In discussion with the patient today he reports feeling low-dose tadalafil and p.r.n. dosing tadalafil has been somewhat helpful with obtaining and maintaining his erections. He reports at times he does continue with difficulty maintaining his erections. We did discuss potential causes of erectile dysfunction as well as further treatment options and risks and benefits of these treatment options. We discussed at length the importance of lifestyle modifications to assist with ED to include weight loss, management of diabetes, and increase in physical activity. He does continue to follow-up with nephrology, cardiology, endocrinology, and PCP for his ongoing medical issues. He otherwise denies any bothersome urinary issues. He denies urinary urgency, urinary frequency, incontinence, nocturia, hematuria, dysuria, foul smelling urine, changes to urinary stream, flank pain, fever, and or chills. He is happy with his current voiding parameters. A1c are as follows: 12/15 6.1, 04/18 5.9, 01/16 10.0, 05/17 8.8, 08/17 7.0, 03/20 8.6, 07/18 6.5, 01/18 7.0, 05/19 7.0. PSA 01/18 0.4. He otherwise denies any other issues or concerns at this time. [facility] Medical History HTN (hypertension) Type 2 diabetes mellitus with diabetic polyneuropathy Iron deficiency anemia Cirrhosis Severe persistent allergic asthma Foot drop, left Lumbar radiculopathy, chronic Abnormal ECG Obesity due to excess calories Hx of pancreatitis Acid reflux Elevated alkaline phosphatase measurement Asthma MAURIZIO on CPAP Morbid obesity Degeneration of L4-L5 intervertebral disc Diabetes Anemia Apnea, sleep Dyspnea on exertion Obstructive sleep apnea Surgical History Hx of cholecystectomy History of back surgery Family History Father Diabetes Hearing loss Mother CVD (cardiovascular disease) Thyroid condition Paternal Grandmother Diabetes Paternal Aunt Diabetes Sister No problems noted. Sister No problems noted. 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 Review of Systems Const Reports no additional complaints Eyes Reports no additional complaints ENT Reports no additional complaints Card Reports as per HPI Resp Reports as per HPI GI Reports as per HPI Reports as per HPI Musc Reports as per HPI Neuro Reports no additional complaints Psych Reports no additional complaints Endo Reports as per HPI Brennan/Lymph Reports no additional complaints Aller/Immun Reports no additional complaints Physical Exam Const General: cooperative, comfortable, no acute distress, well developed, alert and awake Nutritional Appearance: obese Orientation/consciousness: patient oriented x3 Limitations: no limitations HEENT Head: Yes normal to inspection, Yes normocephalic and Yes atraumatic Ears: hearing grossly normal bilaterally Eyes General: appearance normal, both eyes and all related structures Neck Neck: Yes normal visual inspection and Yes trachea midline Chest Chest palpation & inspection: normal inspection of the chest Resp Effort & Inspection: normal respiratory effort and able to speak in complete sentences Cardio Rate: regular rate GI Inspection: Yes normal to inspection General: Yes no CVA tenderness Back/Spine/Pelvis Back: no CVA tenderness Skin General skin exam: no rashes or lesions noted Neuro General: patient oriented x3 Extrem General: Yes normal to inspection Psych Appearance: grossly normal and well kempt Mental Status: mental status grossly normal Speech and movement: Normal speech and movement present and Clear speech present Affect: normal affect Attitude: cooperative Thought process: Normal thought process present Thought content: Normal thought content present Insight: Fair insight present (Psych) Judgement: Fair judgement present (Psych) Assessment & Plan Assessment & Plan (1) Erectile dysfunction associated with type 2 diabetes mellitus: Code(s): E11.69 - Type 2 diabetes mellitus with other specified complication; N52.1 - Erectile dysfunction due to diseases classified elsewhere Category: Medical Plan Unable to obtain urine for urinalysis as patient unable to void. He currently denies any bothersome urinary issues. He reports be happy with current voiding parameters. We discussed at length lifestyle modifications to assist with ED as well as overall health and well-being. We discussed importance of management and diabetes for improvement in ED as well as overall health and well-being. We discussed potential causes of ED as well as further treatment options and risks and benefits of these treatment options. We also reviewed penile pump and rings Will continue with daily dosing of tadalafil as well as p.r.n. dosing. Will obtain PSA in 6 months Follow-up in 6 months with PSA; or sooner with any issues, concerns, and or questions. Orders: Orders Prostate Specific Antigen 6 Months E11.69 - Type 2 diabetes mellitus with other specified complication, N52.1 - Erectile dysfunction due to diseases classified elsewhere Patient Instructions: The patient had an opportunity to ask questions regarding the treatment plan. All questions were answered. Physical exam, labs, and imaging were discussed and reviewed in detail. As well as risks, benefits, and discussion of treatment choices. No major barriers to understanding were identified. The patient expressed understanding and agreement with the above treatment plan. The patient was made aware they should contact our office by phone for worsening of their current condition, the appearance of new symptoms, or with any questions or concerns. Compliance is encouraged with any medications and follow up testing that is ordered. It is a privilege to be allowed the opportunity to participate in? your urological care.? Again, if you have any questions or concerns If you have any questions or concerns please do not hesitate to contact me. The office is [phone]. This note is constructed using voice recognition software. While every effort has been made to ensure accuracy boiler plant worker errors may have been included. Yours sincerely, STARR Sahu Coding Level of Care Code Est Pt Level 4 (37743) Diagnoses Erectile dysfunction associated with type 2 diabetes mellitus E11.69; N52.1 Time Spent (min) 35
--- OUTSIDE RECORDS SUMMARY | 2024-07-07 16:31 | XMS_ITS | Clinical Summary ---
Author Organization [facility] Address [address] [place] [address] Phone Care Team Providers Care Scraper Meat Name Role Phone Name, Beau FRANKS Primary Care Provider [phone] Medications albuterol (2.5 MG/3ML) 0.083% nebulizer solution [...] Insurance Medicaid [place] Care Teams Scraper Meat Relationship Specialty Start Date End Date Name, MD Beau [address] [place] [address] PCP - General Internal Medicine 10/05/21
== END 2024-07-07 16:17 | disposition home or self-care (01) ==
LOC: HO.HUSH 15:51
PROVIDERS: PCP Internal Medicine Geriatric Medicine; Visit Provider Nurse Practitioner Family
DX: E11.69 Type 2 diabetes mellitus with other specified complication (principal); N52.1 Erectile dysfunction due to diseases classified elsewhere
CPT/HCPCS: 99214

== ENCOUNTER 2024-08-11 14:55 | Outpatient (AMB) | payer MEDICAID, SELFPAY ==
[2024-08-11 14:56] VITALS: BP 126/68; PULSE 124; O2SAT 97; BMI 48.9
--- NOTE | 2024-08-11 14:56 | HO.NEPHOV ---
Vital Signs 08/11/24 14:56 Height 5 ft 6 in Weight 303 lb BMI 48.9 BP 126/68 Blood Pressure Location Rt brachial Position Sitting Pulse 124 H Pulse Source Pulse Oximeter Pulse Oximetry (%) 97 Oxygen Delivery Method Room Air Intake Visit Reasons: 4mon follow-up w/labs-LVM Jackscrew Worker Required: No Accompanied by: Self / Same As Patient Allergies pollen extracts Allergy (Verified 08/11/24 14:57) Unknown HPI Comments Details: Manjit was seen in follow up for management of his edema and CKD 3 as well as hypertension. He has a BMI of 49 with hypertension, diabetes as well as sleep apnea among other medical issues. His serum albumin is 3.8 and Pro BNP is normal. He is not known to have any proteinuria. His Echocardiogram has been good. He denies excess sodium in the diet. His urine output is good. He claims to be compliant with his CPAP. He denies any chest pain but has been having worsening shortness of breath, weight gain and PND. He uses CPAP. He denies taking excessive nonsteroidal anti-inflammatories. His current diuretics are not helping him with his lower extremity swelling ON LICENSE OF [facility] Medical History HTN (hypertension) Type 2 diabetes mellitus with diabetic polyneuropathy Iron deficiency anemia Cirrhosis Severe persistent allergic asthma Foot drop, left Lumbar radiculopathy, chronic Abnormal ECG Obesity due to excess calories Hx of pancreatitis Acid reflux Elevated alkaline phosphatase measurement Asthma MAURIZIO on CPAP Morbid obesity Degeneration of L4-L5 intervertebral disc Diabetes Anemia Apnea, sleep Dyspnea on exertion Obstructive sleep apnea Surgical History Hx of cholecystectomy History of back surgery Family History Father Diabetes Hearing loss Mother CVD (cardiovascular disease) Thyroid condition Paternal Grandmother Diabetes Paternal Aunt Diabetes Sister No problems noted. Sister No problems noted. 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 Review of Systems Const All systems reviewed & are unremarkable except as noted in HPI and below Physical Exam Vital Signs: Last Vital Signs Pulse 124 H 08/11/24 14:56 BP 126/68 08/11/24 14:56 Pulse Ox 97 08/11/24 14:56 Oxygen Delivery Method Room Air 08/11/24 14:56 BMI result Body Mass Index 48.9 Const General: comfortable and no acute distress Orientation/consciousness: patient oriented x3 HEENT Head: Yes normocephalic Mouth: Normal oral and palatal mucosa present Eyes EOM: EOMs intact bilaterally Neck Neck: Yes supple Resp Auscultation: clear to auscultation bilaterally Cardio Jugular venous distension: no JVD Rate: regular rate GI Palpation (GI): Soft to palpation Auscultation: normal bowel sounds General: Yes no CVA tenderness Back/Spine/Pelvis Back: no CVA tenderness Skin General skin exam: no rashes or lesions noted Neuro General: patient oriented x3 and moves all extremities Extrem General: Yes edema Results Reviewed Nephrology Results: Hgb 9.3 g/dl (14.0-18.0) L 05/14/24 WBC 6.8 X10*3/uL (4.8-10.8) 05/14/24 Plt Count 314 X10*3/uL (160-400) 05/14/24 Sodium 137 mmol/L (135-145) 07/07/24 Potassium 4.3 mmol/L (3.3-5.1) 07/07/24 Chloride 104 mmol/L (96-108) 07/07/24 Carbon Dioxide 24 mmol/L (22-29) 07/07/24 BUN 13 mg/dL (9-16) 07/07/24 Creatinine 1.02 mg/dL (0.5-1.4) 07/07/24 Calcium 8.3 mg/dL (8.4-10.2) L 07/07/24 Urine Creatinine 117.28 mg/dL 07/07/24 Assessment & Plan Assessment & Plan (1) CKD stage 3a, GFR 45-59 ml/min: Code(s): N18.31 - Chronic kidney disease, stage 3a Category: Medical (2) Hyperuricemia: Code(s): E79.0 - Hyperuricemia without signs of inflammatory arthritis and tophaceous disease Category: Medical (3) HTN (hypertension): Code(s): I10 - Essential (primary) hypertension Category: Medical Qualifiers: Hypertension type: primary hypertension Qualified Code(s): I10 - Essential (primary) hypertension (4) Edema: Code(s): R60.9 - Edema, unspecified Category: Medical Qualifiers: Edema type: localized Qualified Code(s): R60.0 - Localized edema Clementina Saravia has edema most likely due to multifactorial etiology. His last Echocardiogram was OK. He is not known to have any proteinuria. His serum albumin was 3.8. His Pro BNP had been normal. I reviewed his abdominal USS. His iron studies have been fine. He is on spironolactone. He can continue on bumetanide 2 mg daily.His uric acid is high. He is on Allopurinol 100 mg daily. He is a candidate for Unbabel. I started him on Metolazone 5 mg daily for 10 days. Blood work in 10 days. He may have to see a Liver specialist. He should minimize sodium in the diet and should get medical help to lose weight. He should avoid nonsteroidal anti-inflammatories. Answered all questions Orders: Orders Albumin Level 2 Weeks E79.0 - Hyperuricemia without signs of inflammatory arthritis and tophaceous disease, I10 - Essential (primary) hypertension, N18.31 - Chronic kidney disease, stage 3a, R60.0 - Localized edema Electrolytes 2 Weeks E79.0 - Hyperuricemia without signs of inflammatory arthritis and tophaceous disease, I10 - Essential (primary) hypertension, N18.31 - Chronic kidney disease, stage 3a, R60.0 - Localized edema Blood Urea Nitrogen 2 Weeks E79.0 - Hyperuricemia without signs of inflammatory arthritis and tophaceous disease, I10 - Essential (primary) hypertension, N18.31 - Chronic kidney disease, stage 3a, R60.0 - Localized edema Uric Acid 2 Weeks E79.0 - Hyperuricemia without signs of inflammatory arthritis and tophaceous disease NT-proBNP 2 Weeks E79.0 - Hyperuricemia without signs of inflammatory arthritis and tophaceous disease, I10 - Essential (primary) hypertension, N18.31 - Chronic kidney disease, stage 3a, R60.0 - Localized edema Creatinine 2 Weeks E79.0 - Hyperuricemia without signs of inflammatory arthritis and tophaceous disease, I10 - Essential (primary) hypertension, N18.31 - Chronic kidney disease, stage 3a, R60.0 - Localized edema Protein Creatinine Ratio, Ur 2 Weeks E79.0 - Hyperuricemia without signs of inflammatory arthritis and tophaceous disease, I10 - Essential (primary) hypertension, N18.31 - Chronic kidney disease, stage 3a, R60.0 - Localized edema Medications: New metolazone 5 mg PO DAILY 10 tabs 0RF Coding Level of Care Code Est Pt Level 4 (65067) Diagnoses CKD stage 3a, GFR 45-59 ml/min N18.31 Hyperuricemia E79.0 Primary hypertension I10 Hypertension type: primary hypertension Localized edema R60.0 Edema type: localized
--- OUTSIDE RECORDS SUMMARY | 2024-08-11 17:20 | XMS_ITS | Encounter Summary ---
Author Organization [employer] Address [address] [place] [address] Care Team Providers Care Apprenticeship Training Representative Name Role Phone Name, Beau FRANKS Primary Care Provider [phone] Bambi Jauregui Unavailable Mechelle Dumont RN Unavailable [phone] Reason for Visit * Reason Comments Med Refill Encounter Details Date Type Department Care Team (Late st Contact Info) Description 06/11/2022 Refill [facility] [address] [place] [phone] Name, MD Beau [address] [place] [address] [phone] Iron deficiency Social History Tobacco Use Types [...] Care Team (Late st Contact Info) Description 08/12/2024 11:15 AM EDT Office Visit [facility] [address] [place] [address] [phone] Yudy Linn NP [address] [place], [place] [phone] 08/18/2024 3:30 PM EDT Office Visit [facility] [address] [place] [address] [phone] Name, MD Beau [address] [place] [address] documented as of this encounter Visit Diagnoses Diagnosis Iron deficiency Disorders of iron metabolism documented in this encounter Care Teams Apprenticeship Training Representative Relationship Specialty Start Date End Date Name, MD Beau [address] [place] [address] PCP - General Family Medicine 06/01/15 Bambi Jauregui Community Health Worker 06/27/2309/14 Mechelle Dumont RN [address] [place] [id number] Bulb Inspector 06/27/23 09/15/23 documented as of this encounter
== END 2024-08-11 15:20 | disposition home or self-care (01) ==
LOC: HO.HKAS 14:55
PROVIDERS: PCP Internal Medicine Geriatric Medicine; Visit Provider Internal Medicine Nephrology
DX: N18.31 Chronic kidney disease, stage 3a (principal); E79.0 Hyperuricemia without signs of inflammatory arthritis and tophaceous disease; I10 Essential (primary) hypertension; R60.0 Localized edema
CPT/HCPCS: 99214

== ENCOUNTER → 2024-08-11 14:55 | Outpatient (BNVA) | payer MEDICAID, SELFPAY | PROVIDERS: PCP Internal Medicine Geriatric Medicine; Visit Provider Internal Medicine Nephrology | DX: N18.31 Chronic kidney disease, stage 3a (principal); E79.0 Hyperuricemia without signs of inflammatory arthritis and tophaceous disease; I10 Essential (primary) hypertension; R60.0 Localized edema | CPT/HCPCS: 99212 ==

== ENCOUNTER 2024-08-12 12:20 | Outpatient (REF) | payer MEDICAID, SELFPAY ==
--- NOTE | ~2024-08-12 | XR_ITS ---
EXAMINATION: XR CHEST CLINICAL INFORMATION: increased orthopnea, ? chf COMPARISON: June 18, 2023. TECHNIQUE: 2 views of the chest were obtained. FINDINGS: No consolidation pleural effusion or pneumothorax. No hyperinflation. Cardiomediastinal silhouette size is normal. Mild multilevel thoracic spondylosis. Mild levoconvex curvature of the lower thoracic spine. XR/XR chest 2V IMPRESSION: No acute airspace disease. Spondylosis and mild levoconvex scoliosis, thoracic spine. Electronically signed by: Cruzito Fyae MD 08/12/2024 12:39 PM EDT
--- OUTSIDE RECORDS SUMMARY | 2024-08-12 11:15 | XMS_ITS | Encounter Summary ---
Author Organization [employer] Address [address] [place] [address] 7 [place] [address] Care Team Providers Care Cane Loader Name Role Phone Name, Beau FRANKS Primary Care Provider [phone] Encounter Details Date Type Department Care Team ([facility] st Contact Info) Description 08/12/2024 11:15 AM EDT Office Visit [facility] [address] [place], [place] [phone] Yudy Linn NP [address] [place], [place] [phone] Stage 3a chronic kidney disease (CKD) (CMS/HCC) (Primary Dx); GONZALEZ (dyspnea on exertion); Orthopnea Social History Tobacco Use Types Packs/Day Years [...] Sign Reading Time Taken Comments Blood Pressure 150/80 08/12/2024 11:37 AM EDT pt took meds about 30 mins ago Pulse 96 08/12/2024 11:37 AM EDT Temperature 36.1 C (96.9 F) 08/12/2024 11:37 AM EDT Respiratory Rate 20 08/12/2024 11:3 7 AM EDT Oxygen Saturation 97% 08/12/2024 11: 37 AM EDT Inhaled Oxygen Concentration - - Weight 137 kg (303 lb) 08/12/2024 11:37 AM EDT Height 167.6 cm (5' 6 ) 08/12/2024 11:3 7 AM EDT Body Mass Index 48.91 08/12/2024 11:37 AM EDT documented in this encounter Plan of Treatment Upcoming Encounters Date Type Department Care Team (Late st Contact Info) Description 09/04/2024 10:30 AM EDT Office Visit [facility] [address] [place] [address] Name, MD Beau [address] [place] [address] documented as of this encounter Procedures Procedure Name Priority Date/Time Associated Diagnosis Comments XR CHEST 2 VIEWS Routine 08/12/2024 12:3 0 PM EDT GONZALEZ (dyspnea on exertion) Orthopnea documented in this encounter Results * XR Chest 2 Views (08/12/2024 12:30 PM EDT) Anatomical Region Laterality Modality Chest Radiographic Mira ging 08/12/2024 12:3 0 PM EDT Narrative 08/12/2024 12:42 PM EDT [address] [address] XRay Report Signed Patient: Manjit May MR#: [id number] 58 : 1970 Acct:[id number] Age/Sex: 54 / M ADM Date: 08/12/24 Loc: [facility] Attending Dr: Yudy Linn NP Ordering Physician: Yudy Linn NP Date of Service: 08/12/24 Procedure(s): XR chest 2V Accession Number(s): [id number] cc: Yudy Linn WAREHOUSE ASSISTANT; Name,Beau FRANKS EXAMINATION: XR CHEST CLINICAL INFORMATION: increased orthopnea, ? chf COMPARISON: June 18, 2023. TECHNIQUE: 2 views of the chest were obtained. FINDINGS: No consolidation pleural effusion or pneumothorax. No hyperinflation. Cardiomediastinal silhouette size is normal. Mild multilevel thoracic spondylosis. Mild levoconvex curvature of the lower thoracic spine. XR/XR chest 2V IMPRESSION: No acute airspace disease. Spondylosis and mild levoconvex scoliosis, thoracic spine. Electronically signed by: Cruzito Faye MD 08/12/2024 12:39 PM EDT Dictated By: Cruzito Arellano MD Signed By: <Electronically signed by Cruzito Peña MD in OV> 08/12/24 1239 DD/ 1230 TD/TT: 08/12/24 1235 Vacuum Tank Tender: Procedure Note Donotuseinterpreter, Image - 08/12/20[address] [place] [address] XRay Report Signed Patient: Manjit May AMR#: [id number] 58 : 1970Acct:[id number] Age/Sex: 54 / MADM Date: 08/12/24 Loc: HO.XRAY Attending Dr: Yudy Linn WAREHOUSE ASSISTANT Ordering Physician: Yudy Linn NP Date of Service: 08/12/24 Procedure(s): XR chest 2V Accession Number(s): [id number] cc: Yudy Linn WAREHOUSE ASSISTANT; Name,Beau FRANKS EXAMINATION: XR CHEST CLINICAL INFORMATION: increased orthopnea, ? chf COMPARISON: June 18, 2023. TECHNIQUE: 2 views of the chest were obtained. FINDINGS: No consolidation pleural effusion or pneumothorax. No hyperinflation. Cardiomediastinal silhouette size is normal. Mild multilevel thoracic spondylosis. Mild levoconvex curvature of the lower thoracic spine. XR/XR chest 2V IMPRESSION: No acute airspace disease. Spondylosis and mild levoconvex scoliosis, thoracic spine. Electronically signed by: Cruzito Faye MD 08/12/2024 12:39 PM EDT RP Dictated By: Cruzito Arellano MD Signed By: <Electronically signed by Cruzito Peña MDin OV> 08/12/24 1239 DD/ 1230 TD/TT: 08/12/24 1235 Vacuum Tank Tender: Yudy Linn NP IMG XR PROCEDURES Final Result documented in this encounter Visit Diagnoses Diagnosis Stage 3a chronic kidney disease (CKD) (CMS/HCC)- Primary GONZALEZ (dyspnea on exertion) Other dyspnea and respiratory abnormality Orthopnea documented in this encounter Additional Health Concerns Assessment Noted Time PHQ-9 Depression Total Score: 24 024 3:46 PM EST documented as of this encounter Care Teams Cane Loader Relationship Specialty Start Date End Date Name, MD Beau [address] [place] [id number] PCP - General Family Medicine 06/01/15 documented as of this encounter
== END 2024-08-12 12:21 | disposition home or self-care (01) ==
LOC: HO.XRAY 12:20
PROVIDERS: PCP Internal Medicine Geriatric Medicine; Visit Provider Nurse Practitioner Family
DX: R06.01 Orthopnea (principal); R06.09 Other forms of dyspnea
CPT/HCPCS: 71046

== ENCOUNTER → 2024-08-12 12:25 | Outpatient (BNV) | payer MEDICAID, SELFPAY | PROVIDERS: PCP Internal Medicine Geriatric Medicine; Visit Provider Radiology Diagnostic Radiology | DX: M47.814 Spondylosis without myelopathy or radiculopathy, thoracic region (principal); M41.34 Thoracogenic scoliosis, thoracic region | CPT/HCPCS: 71046 ==

== ENCOUNTER 2024-08-24 13:01 | Outpatient (AMB) | payer MEDICAID, SELFPAY ==
--- NOTE | 2024-08-24 13:26 | A.OFFVIS_ITS ---
Intake Intake Visit Reasons: dm Drywall Carrier Required: No Accompanied by: Self / Same As Patient Allergies pollen extracts Allergy (Verified 08/11/24 14:57) Unknown HPI Comprehensive Diabetes Asmnt Most Recent Diabetes Results: 2 Microalb/Creat Ratio, (<30) 26.4 ug/mg cr 07/07/24 Cholesterol, (<200) 128 mg/dL 07/07/24 HDL Cholesterol, (>40) 36 mg/dL L 07/07/24 Triglycerides, (<150) 195 mg/dL H 07/07/24 Creatinine, (0.5-1.4) 1.35 mg/dL Today BUN, (9-16) 22 mg/dL H Today Sodium, (135-145) 138 mmol/L Today Potassium, (3.3-5.1) 3.7 mmol/L Today Chloride, (96-108) 101 mmol/L Today Carbon Dioxide, (22-29) 27 mmol/L Today Calcium, (8.4-10.2) 8.3 mg/dL L 07/07/24 AST, (5-37) 42 U/L H 07/07/24 ALT, (0-40) 30 U/L 07/07/24 Total Protein, (6.5-8.0) 7.1 g/dL 07/07/24 Albumin, (3.5-5.0) 3.7 g/dL Today [facility] Medical History HTN (hypertension) Type 2 diabetes mellitus with diabetic polyneuropathy Iron deficiency anemia Cirrhosis Severe persistent allergic asthma Foot drop, left Lumbar radiculopathy, chronic Abnormal ECG Obesity due to excess calories Hx of pancreatitis Acid reflux Elevated alkaline phosphatase measurement Asthma MAURIZIO on CPAP Morbid obesity Degeneration of L4-L5 intervertebral disc Diabetes Anemia Apnea, sleep Dyspnea on exertion Obstructive sleep apnea Surgical History Hx of cholecystectomy History of back surgery Family History Father Diabetes Hearing loss Mother CVD (cardiovascular disease) Thyroid condition Paternal Grandmother Diabetes Paternal Aunt Diabetes Sister No problems noted. Sister No problems noted. 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 Patient reports he is snacking on applesauce when he takes his evening medications. Recommended to patient he choose lower carbohydrate snack in the late evening, low carb snack list given to patient. Patient also has several episodes of hypoglycemia. Reviewed with patient how to treat hypoglycemia with rule of 15s Patient reports he no longer feels symptoms of hypoglycemia. Instructed patient to carry cell phone with him so he can be alerted if glucose level is dropping below 70 mg/dL Hypoglycemia or blood glucose under 70 mg/dL use the rule of 15's: If you have your blood glucose meter test your blood glucose, if you do not have your meter still follow below instruction: Keep quick-sugar foods with you at all times.? Take 15 grams of fast acting carbohydrates. Examples are 4 ounces of fruit juice or regular soda pop, 8 ounces fat-free milk, 1 tablespoon of table sugar, honey or corn syrup, jam, one miniature box of raisins, 7-8 gumdrops or Life Savers candy, 4 glucose tablets, and glucose gel.? Retest blood glucose in 15 minutes, if blood glucose is still under 80 mg/dL,repeat rule of 15's. If blood glucose is under 50, take 30 grams of fast acting carbohydrates If you are having hypoglycemia, or insulin reaction, more that a few times a week, call MD or staff educator Patient also reported that there several days a month that he does not take insulin because he is running out before he can refill prescription. Reviewed prescription for lispro, sent message to Endocrine provider to increase lispro amount from 15 mL to 30 mL per month. Patient able to insert sensor independently at home without issue.? Portions of this note were created using voice recognition software, please excuse any words or phrases that may have been misinterpreted. Coding Level of Care Code Est Pt Level 1 (11526) Diagnoses Type 2 diabetes mellitus with diabetic polyneuropathy, with long-term current use of insulin E11.42; Z79.4 Diabetes mellitus termite exterminator insulin use: with care home use
--- OUTSIDE RECORDS SUMMARY | 2024-08-24 13:26 | XMS_ITS | Clinical Summary ---
Author Organization [facility] Address [address] [place] [address] Phone Care Team Providers Care Product Safety Technician Name Role Phone Name, Beau FRANKS Primary Care Provider [phone] Medications albuterol (2.5 MG/3ML) 0.083% nebulizer solution [...] Insurance Medicaid [place] Medicaid [place] Care Teams Product Safety Technician Relationship Specialty Start Date End Date Name, MD Beau [address] [place] [id number] PCP - General Internal Medicine 10/05/21
== END 2024-08-24 13:28 | disposition home or self-care (01) ==
LOC: HO.ENCR 13:02
PROVIDERS: PCP Internal Medicine Geriatric Medicine; Visit Provider Registered Nurse Diabetes Educator
DX: E11.42 Type 2 diabetes mellitus with diabetic polyneuropathy (principal); Z79.4 Long term (current) use of insulin

== ENCOUNTER 2024-08-24 13:01 | Outpatient (REF) | payer MEDICAID, SELFPAY ==
--- OUTSIDE RECORDS SUMMARY | 2024-08-24 14:04 | XMS_ITS | Encounter Summary ---
Author Organization [employer] Address [address] [place] [address] 7 [place] [address] Care Team Providers Care Radio Producer Name Role Phone Name, Beau FRANKS Primary Care Provider [phone] Bambi Jauregui Unavailable Mechelle Dumont RN Unavailable [phone] Reason for Visit * Reason Comments Med Refill Encounter Details Date Type Department Care Team (Late st Contact Info) Description 06/11/2022 Refill [facility] [address] [place] [id number] Beau Stewart MD [address] [place] [address] [phone] Iron deficiency Social History Tobacco Use Types [...] Description 09/04/2024 10:30 AM EDT Office Visit [facility] [address] [place] [address] [phone] Beau Stewart MD [address] [place] [address] [phone] documented as of this encounter Visit Diagnoses Diagnosis Iron deficiency Disorders of iron metabolism documented in this encounter Care Teams Radio Producer Relationship Specialty Start Date End Date Beau Stewart MD [address] [place] [address] PCP - General Family Medicine 06/01/15 Bambi Jauregui Community Health Worker 06/27/2309/14 Mechelle Dumont RN [address] [place] [address] Electrician Maintenance 06/27/23 09/15/23 documented as of this encounter
[2024-08-24 14:25] LABS: Albumin Level 3.7 g/dL (3.5-5.0); Anion Gap 14 (12-20); Blood Urea Nitrogen 22 mg/dL (9-16); Carbon Dioxide 27 mmol/L (22-29); Chloride 101 mmol/L (96-108); Estimated Glomerular Filt Rate 55; Potassium 3.7 mmol/L (3.3-5.1); Sodium 138 mmol/L (135-145); Uric Acid 9.3 mg/dL (3.4-7.0)
[2024-08-24 15:30] LABS: Protein/Creatinine Ratio, Ur 0.05 (<0.2); Total Protein Urine Random 23 mg/dL (<12)
[2024-08-25 06:18] LABS: NT-proBNP <36 pg/mL (<125)
== END 2024-08-24 13:02 | disposition home or self-care (01) ==
LOC: HO.LAB 13:01
PROVIDERS: Absent Provider Internal Medicine Nephrology; PCP Internal Medicine Geriatric Medicine; Visit Provider Registered Nurse Diabetes Educator
DX: E11.42 Type 2 diabetes mellitus with diabetic polyneuropathy (principal); Z79.4 Long term (current) use of insulin
CPT/HCPCS: 36415; 80051; 82040; 82565; 82570; 83880; 84156; 84520; 84550; 99211

== ENCOUNTER 2024-09-04 15:41 | Outpatient (AMB) | payer MEDICAID, SELFPAY ==
--- NOTE | 2024-09-04 15:43 | HO.NEPHOV ---
Vital Signs 09/04/24 15:49 Height 5 ft 6 in Weight 305 lb 6 oz BMI 49.3 BP 130/70 Blood Pressure Location Rt brachial Position Sitting Pulse 96 Pulse Source Pulse Oximeter Pulse Oximetry (%) 98 Oxygen Delivery Method Room Air Intake Visit Reasons: 2wk follow up-Conf Allergies pollen extracts Allergy (Verified 08/11/24 14:57) Unknown HPI Comments Details: Manjit was seen in follow up for management of his edema and CKD 3 as well as hypertension. He has a BMI of 49 with hypertension, diabetes as well as sleep apnea among other medical issues. His serum albumin is 3.8 and Pro BNP is normal. He is not known to have any proteinuria. His Echocardiogram has been good. He denies excess sodium in the diet. His urine output is good. He claims to be compliant with his CPAP. He denies any chest pain but has been having worsening shortness of breath, weight gain and PND. He uses CPAP. He denies taking excessive nonsteroidal anti-inflammatories. He has been having lower extremity swelling PENDING SALE TO [facility] Medical History (Updated 09/04/24 @ 15:55 by Lionel Navas MD) Edema HTN (hypertension) Type 2 diabetes mellitus with diabetic polyneuropathy Iron deficiency anemia Cirrhosis Severe persistent allergic asthma Foot drop, left Lumbar radiculopathy, chronic Abnormal ECG Obesity due to excess calories Hx of pancreatitis Acid reflux Elevated alkaline phosphatase measurement Asthma MAURIZIO on CPAP Morbid obesity Degeneration of L4-L5 intervertebral disc Diabetes Anemia Apnea, sleep Dyspnea on exertion Obstructive sleep apnea Surgical History Hx of cholecystectomy History of back surgery Family History Father Diabetes Hearing loss Mother CVD (cardiovascular disease) Thyroid condition Paternal Grandmother Diabetes Paternal Aunt Diabetes Sister No problems noted. Sister No problems noted. 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 Review of Systems Const All systems reviewed & are unremarkable except as noted in HPI and below Physical Exam Vital Signs: Last Vital Signs Pulse 96 09/04/24 15:49 BP 130/70 09/04/24 15:49 Pulse Ox 98 09/04/24 15:49 Oxygen Delivery Method Room Air 09/04/24 15:49 BMI result Body Mass Index 49.3 Const General: comfortable and no acute distress Orientation/consciousness: patient oriented x3 HEENT Head: Yes normocephalic Mouth: Normal oral and palatal mucosa present Eyes EOM: EOMs intact bilaterally Neck Neck: Yes supple Resp Auscultation: clear to auscultation bilaterally Cardio Jugular venous distension: no JVD Rate: regular rate GI Palpation (GI): Soft to palpation Auscultation: normal bowel sounds General: Yes no CVA tenderness Back/Spine/Pelvis Back: no CVA tenderness Skin General skin exam: no rashes or lesions noted Neuro General: patient oriented x3 and moves all extremities Results Reviewed Nephrology Results: Sodium, (135-145) 138 mmol/L 08/24/24 Potassium, (3.3-5.1) 3.7 mmol/L 08/24/24 Chloride, (96-108) 101 mmol/L 08/24/24 Carbon Dioxide, (22-29) 27 mmol/L 08/24/24 BUN, (9-16) 22 mg/dL H 08/24/24 Creatinine, (0.5-1.4) 1.35 mg/dL 08/24/24 Calcium, (8.4-10.2) 8.3 mg/dL L 07/07/24 Urine Creatinine 443.70 mg/dL 08/24/24 Protein/Creatinin Ratio, (<0.2) 0.05 08/24/24 Assessment & Plan Assessment & Plan (1) HTN (hypertension): Code(s): I10 - Essential (primary) hypertension Category: Medical Qualifiers: Hypertension type: primary hypertension Qualified Code(s): I10 - Essential (primary) hypertension (2) CKD stage 3a, GFR 45-59 ml/min: Code(s): N18.31 - Chronic kidney disease, stage 3a Category: Medical (3) Edema: Code(s): R60.9 - Edema, unspecified Category: Medical Qualifiers: Edema type: localized Qualified Code(s): R60.0 - Localized edema Plan Manjit has edema most likely due to multifactorial etiology. His last Echocardiogram was OK. He is not known to have any proteinuria. His last serum albumin was 3.8. His Pro BNP had been normal. I reviewed his abdominal USS. His iron studies have been fine. He is on spironolactone. I increased bumetanide to 2 mg twice daily.His uric acid is high. He is on Allopurinol 100 mg daily. He is started on Jardiance. I started him on Metolazone 5 mg once a week. Blood work in 3 weeks. He may have to see a Liver specialist. He should minimize sodium in the diet and should get medical help to lose weight. He should avoid nonsteroidal anti-inflammatories. Answered all questions Orders: Orders Creatinine 3 Weeks I10 - Essential (primary) hypertension, N18.31 - Chronic kidney disease, stage 3a Blood Urea Nitrogen 3 Weeks I10 - Essential (primary) hypertension, N18.31 - Chronic kidney disease, stage 3a Electrolytes 3 Weeks I10 - Essential (primary) hypertension, N18.31 - Chronic kidney disease, stage 3a Medications: Changed From bumetanide 2 mg (2 x 1 mg) PO DAILY 90 days 180 tabs 4RF To bumetanide 2 mg (2 x 1 mg) PO BID 360 tabs 4RF 90 days From metolazone 5 mg PO DAILY 10 tabs 0RF To metolazone 5 mg orally once a week; 14 tabs 1RF 90 days Coding Level of Care Code Est Pt Level 4 (30661) Diagnoses Primary hypertension I10 Hypertension type: primary hypertension CKD stage 3a, GFR 45-59 ml/min N18.31 Localized edema R60.0 Edema type: localized
--- OUTSIDE RECORDS SUMMARY | 2024-09-04 15:43 | XMS_ITS | Clinical Summary ---
Author Organization [facility] Address [address] [place] [address] Phone Care Team Providers Care Detective Name Role Phone Name, Beau FRANKS Primary Care Provider [phone] Medications albuterol (2.5 MG/3ML) 0.083% nebulizer solution [...] Cancer Screening: Sigmoidoscopy 2019 Influenza Vaccine (#1) 2024 Insurance Medicaid [place] Care Teams Detective Relationship Specialty Start Date End Date Name, MD Beau [address] [place] [id number] PCP - General Internal Medicine 10/05/21
--- OUTSIDE RECORDS SUMMARY | 2024-09-04 15:43 | XMS_ITS | Encounter Summary ---
Author Organization [employer] Address [address] [place] [address] 7 [place] [address] Care Team Providers Care Video Rental Clerk Name Role Phone Name, Beau FRANKS Primary Care Provider [phone] Bambi Jauregui Unavailable Mechelle Dumont RN Unavailable [phone] Reason for Visit * Reason Comments Med Refill Encounter Details Date Type Department Care Team (Late st Contact Info) Description 06/11/2022 Refill [facility] [address] [place] [phone] Beau Stewart MD [address] [place] [address] [phone] Iron deficiency Social History Tobacco Use Types [...] Care Team (Late st Contact Info) Description 11/19/2024 11:30 AM EDT Office Visit [facility] [address] [place] [address] [phone] Beau Stewart MD [address] [place] [address] [phone] documented as of this encounter Visit Diagnoses Diagnosis Iron deficiency Disorders of iron metabolism documented in this encounter Care Teams Video Rental Clerk Relationship Specialty Start Date End Date Beau Stewart MD [address] [place] [address] PCP - General Family Medicine 06/01/15 Bambi Jauregui Community Health Worker 06/27/2309/14 Mechelle Dumont RN [address] [place] [address] Banana Carrier 06/27/23 09/15/23 documented as of this encounter
[2024-09-04 15:49] VITALS: BP 130/70; PULSE 96; O2SAT 98; BMI 49.3
== END 2024-09-04 16:04 | disposition home or self-care (01) ==
LOC: HO.HKA 15:41
PROVIDERS: PCP Internal Medicine Geriatric Medicine; Visit Provider Internal Medicine Nephrology
DX: I10 Essential (primary) hypertension (principal); N18.31 Chronic kidney disease, stage 3a; R60.0 Localized edema
CPT/HCPCS: 99214

== ENCOUNTER → 2024-09-04 15:41 | Outpatient (BNVA) | payer MEDICAID, SELFPAY | PROVIDERS: PCP Internal Medicine Geriatric Medicine; Visit Provider Internal Medicine Nephrology | DX: I10 Essential (primary) hypertension (principal); N18.31 Chronic kidney disease, stage 3a; R60.0 Localized edema | CPT/HCPCS: 99212 ==

== ENCOUNTER 2024-09-15 14:01 | Outpatient (AMB) | payer MEDICAID, SELFPAY ==
[2024-09-15 14:25] VITALS: BP 118/58; PULSE 107; O2SAT 98; BMI 47.9
--- NOTE | 2024-09-15 14:25 | MHC.OFFVIS ---
Vital Signs 09/15/24 14:25 Height 5 ft 6 in Weight 297 lb BMI 47.9 BP 118/58 L Blood Pressure Location Lt brachial Position Sitting Pulse 107 H Pulse Source Pulse Oximeter Pulse Oximetry (%) 98 Oxygen Delivery Method Room Air Intake Visit Reasons: Asthma Allergies pollen extracts Allergy (Verified 09/15/24 14:33) Unknown HPI HPI Asthma: Details: 54-year-old gentleman, lifetime nonsmoker, with underlying history of at least moderate diastolic dysfunction, followed for dyspnea on exertion, MAURIZIO on CPAP, and severe persistent asthma.?He has been compliant with CPAP with good control of his underlying symptoms.? His asthma symptoms is controlled on Fasenra, Breo, and albuterol MDI. He continues to follow-up with Nephrology for underlying lower extremity edema in his Bumex has been increased to 2 mg twice a day with some improvement, but still with significant lower extremity edema and orthopnea. His primary care physician ordered an echocardiogram that is scheduled for October 14. [facility] Medical History (Updated 09/04/24 @ 15:55 by Lionel Navas MD) Edema HTN (hypertension) Type 2 diabetes mellitus with diabetic polyneuropathy Iron deficiency anemia Cirrhosis Severe persistent allergic asthma Foot drop, left Lumbar radiculopathy, chronic Abnormal ECG Obesity due to excess calories Hx of pancreatitis Acid reflux Elevated alkaline phosphatase measurement Asthma MAURIZIO on CPAP Morbid obesity Degeneration of L4-L5 intervertebral disc Diabetes Anemia Apnea, sleep Dyspnea on exertion Obstructive sleep apnea Surgical History Hx of cholecystectomy History of back surgery Family History Father Diabetes Hearing loss Mother CVD (cardiovascular disease) Thyroid condition Paternal Grandmother Diabetes Paternal Aunt Diabetes Sister No problems noted. Sister No problems noted. 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 Review of Systems Const Denies daytime sleepiness, Denies excessive sweating, Denies fatigue, Denies fever(s), Denies lethargy, Denies malaise, Denies night sweats, Denies snoring and Denies weight loss Eyes Denies blurry vision and Denies itchy eyes ENT Denies nasal congestion, Denies post nasal drip, Denies sinus pain, Denies sinus pressure and Denies other ( Thrush) Card Denies chest pain, Reports pedal edema, Denies dyspnea, Reports dyspnea on exertion, Reports orthopnea and Reports paroxysmal nocturnal dyspnea Resp Denies cough, Denies hemoptysis, Denies excessive phlegm production, Denies dyspnea, Reports dyspnea on exertion, Denies snoring and Denies wheezing GI Denies abdominal pain and Denies heartburn Musc Denies myalgias, Denies arthralgias and Denies joint swelling Skin/Breast Denies rash Neuro Denies memory loss and Denies seizure-like activity Psych Denies abnormal sleep pattern, Denies anxiety and Denies memory loss Endo Denies excessive sweating, Denies fatigue and Denies heat intolerance Brennan/Lymph Denies easy bruising Aller/Immun Denies itchy eyes, Denies seasonal rhinorrhea and Denies wheezing Physical Exam Vital Signs: Last Vital Signs Pulse 107 H 09/15/24 14:25 BP 118/58 L 09/15/24 14:25 Pulse Ox 98 09/15/24 14:25 Oxygen Delivery Method Room Air 09/15/24 14:25 BMI result Body Mass Index 47.9 Const General: no acute distress and alert Nutritional Appearance: obese Orientation/consciousness: Other orientation findings ( oriented) HEENT Head: Yes atraumatic Eyes General: appearance normal, both eyes and all related structures Sclerae: sclerae normal EOM: EOMs intact bilaterally Neck Neck: Yes supple Lymphatic: no lymphadenopathy noted Resp Effort & Inspection: normal respiratory effort and no use of accessory muscles Auscultation: clear to auscultation bilaterally Cardio Rate: regular rate Rhythm: regular rhythm Heart sounds: no gallops, no murmurs and no rubs Skin General skin exam: other ( warm) Extrem General: No clubbing, No cyanosis and Yes edema (1+ bilateral) Assessment & Plan Assessment & Plan (1) Severe persistent asthma: Code(s): J45.50 - Severe persistent asthma, uncomplicated Category: Medical Plan: Well controlled on current regimen of Breo, Fasenra, and albuterol MDI. Continue current regimen. (2) MAURIZIO on CPAP: Code(s): G47.33 - Obstructive sleep apnea (adult) (pediatric); Z99.89 - Dependence on other enabling machines and devices Category: Medical Plan: Therapy and compliance report reviewed - patient is benefitting from and is compliant with noninvasive positive pressure ventilation treatment, using it greater than 70% of the time, more than 4 hours per night. Well controlled on current CPAP therapy. Continue CPAP therapy. (3) Lower extremity edema: Code(s): R60.0 - Localized edema Category: Medical Plan: With recently increase Bumex to twice a day to mg by his shift superintendent, however still with significant orthopnea and lower extremity edema. 2D echo is pending. Coding Level of Care Code Est Pt Level 4 (58824) Complex EM visit Add On G2211 Diagnoses Severe persistent asthma J45.50 MAURIZIO on CPAP G47.33; Z99.89 Lower extremity edema R60.0
--- OUTSIDE RECORDS SUMMARY | 2024-09-15 15:20 | XMS_ITS | Clinical Summary ---
Author Organization [facility] Address [address] [place] [address] Phone Care Team Providers Care Furnace Repairer Helper Name Role Phone Name, Beau FRANKS Primary Care Provider [phone] Medications albuterol (2.5 MG/3ML) 0.083% nebulizer solution [...] Insurance Medicaid [place] Care Teams Furnace Repairer Helper Relationship Specialty Start Date End Date Name, MD Beau [address] [place] [id number] PCP - General Internal Medicine 10/05/21
== END 2024-09-15 14:44 | disposition home or self-care (01) ==
LOC: HO.HPS 14:01
PROVIDERS: PCP Internal Medicine Geriatric Medicine; Visit Provider Internal Medicine Pulmonary Disease
DX: J45.50 Severe persistent asthma, uncomplicated (principal); G47.33 Obstructive sleep apnea (adult) (pediatric); Z99.89 Dependence on other enabling machines and devices; R60.0 Localized edema
CPT/HCPCS: 99214

== ENCOUNTER → 2024-09-15 14:01 | Outpatient (BNVA) | payer MEDICAID, SELFPAY | PROVIDERS: PCP Internal Medicine Geriatric Medicine; Visit Provider Internal Medicine Pulmonary Disease | DX: G47.33 Obstructive sleep apnea (adult) (pediatric) (principal); Z99.89 Dependence on other enabling machines and devices; J45.50 Severe persistent asthma, uncomplicated | CPT/HCPCS: 99212 ==

== ENCOUNTER 2024-09-17 13:05 | Outpatient (REF) | payer MEDICAID, SELFPAY ==
[2024-09-17 14:54] LABS: Hematocrit 26.8 % (42.0-52.0); Hemoglobin 8.0 g/dl (14.0-18.0); Mean Corpuscular HGB Conc 29.9 g/dl (31.0-36.0); Mean Corpuscular Hemoglobin 21.1 pg (27.0-33.0); Mean Corpuscular Volume 70.5 fL (80.0-98.0); NRBC Abs Auto 0.000 X10*3/uL (0.0-0.012); NRBC Pct Auto 0.0 /100WBC (0.0-0.2); Platelet Count 359 X10*3/uL (160-400); Red Blood Count 3.80 X10*6/uL (4.60-5.80); White Blood Count 7.8 X10*3/uL (4.8-10.8)
[2024-09-17 15:01] LABS: INTERNATIONAL NORM RATIO 1.0 (0.9-1.1); Prothrombin Time 11.9 SEC (10.9-12.4)
[2024-09-17 15:37] LABS: Ferritin 11 ng/mL (20-250)
== END 2024-09-17 13:06 | disposition home or self-care (01) ==
LOC: HO.LAB 13:05
PROVIDERS: PCP Internal Medicine Geriatric Medicine; Visit Provider Internal Medicine Gastroenterology
DX: K85.10 Biliary acute pancreatitis without necrosis or infection (principal); K22.10 Ulcer of esophagus without bleeding; R79.89 Other specified abnormal findings of blood chemistry; K52.9 Noninfective gastroenteritis and colitis, unspecified; R14.0 Abdominal distension (gaseous); D64.9 Anemia, unspecified; Z79.899 Other long term (current) drug therapy
CPT/HCPCS: 36415; 82728; 85027; 85610

== ENCOUNTER 2024-09-28 13:57 | Outpatient (AMB) | payer MEDICAID, SELFPAY ==
[2024-09-28 13:59] VITALS: BP 124/80; PULSE 105; O2SAT 96; BMI 48.4
--- NOTE | 2024-09-28 13:59 | A.OFFVIS_ITS ---
Vital Signs 09/28/24 13:59 Height 5 ft 6 in Weight 299 lb 13.259 oz BMI 48.4 BP 124/80 Blood Pressure Location Rt brachial Position Sitting Pulse 105 H Pulse Source Pulse Oximeter Pulse Oximetry (%) 96 Oxygen Delivery Method Room Air Intake Visit Reasons: T2DM Intake Note: Patient presents today for D2MT follow up visit. Last Diabetic Eye exam: 01/2024 Last Podiatry Visit: Doesn't have one Most Recent HgA1c: 6.9%, 09/28/2024 Random Glucose: 147 mg/dL, Today Mini Baccarat Dealer Required: No Accompanied by: Self / Same As Patient Allergies pollen extracts Allergy (Verified 09/15/24 14:33) Unknown Medication List - Last Reconciled 09/28/24 by Genia Ford PA-C acetaminophen 500 mg PO Q6H PRN albuterol sulfate 90 mcg/actuation (Ventolin HFA) 2 puffs inhalation Q4-6H PRN allopurinol 100 mg PO DAILY blood-glucose sensor (FreeStyle Monty 3 Plus Sensor device) Use daily As directed to monitor glucose blood-glucose,stripe matcher,cont (FreeStyle Monty 3 Metz) Use daily As directed to monitor blood glucose Breo Ellipta 200-25 mcg/dose (fluticasone furoate-vilanterol) 1 ea PO DAILY NS bumetanide 2 mg (2 x 1 mg) PO BID 90 days calcium carbonate (Calcium Antacid) mg PO TID diclofenac sodium 1% 2 grams topical QID PRN ferrous sulfate 325 mg PO DAILY gabapentin 300 mg PO TID glucagon 3 mg/actuation 3 mg intranasal ONCE PRN glucose (Dex4 Glucose) 16 grams (4 x 4 gram) PO Q15M PRN 30 days insulin glargine U-300 conc (Toujeo Max U-300 SoloStar) 76 units subcut DAILY insulin lispro 40 units (0.4 mL) subcut TID 30 days Lactobacillus rhamnosus GG (Culturelle) 1 cap PO DAILY 90 days lisinopril 30 mg PO DAILY magnesium oxide 400 mg PO TID metformin ER 500 mg PO BID metolazone 5 mg orally once a week; 90 days omeprazole 20 mg PO BID pen needle, diabetic Use QID As directed pravastatin 20 mg PO BEDTIME simethicone (Gas Relief (simethicone)) 125 mg PO BID-QID PRN 30 days sodium chloride 0.9% 3 mL inhalation 6XD PRN spironolactone 25 mg PO DAILY tadalafil (Cialis) 20 mg PO .PRN PRN 90 days tadalafil (Cialis) 5 mg PO DAILY 90 days HPI HPI T2DM: Details: Pt is a 54 y/o male who presents today for a diabetic follow up. He has a hx of htn, ED, gerd, hld, t2dm, gallstone pancreatitis, asthma, maurizio on cpap, anemia and depression. Endo: DM- A1c is 6.9. He is currently on toujeo 76, lispro 40 units TID , glimepiride 2mg in am, and 1000 mg metformin daily.. cgm- usage 96%, avg glucose 144, gmi 6.8%. 3% very hyperglycemic, 21% hyperglycemic, 71% in range, 5% hypoglycemia -Intolerant to Trulicity, mounjaro and Ozempic due to eructation/flatulence foul, bloating. Jardiance caused UTIs/yeast infections (even with a1c of 7). Metformin at higher doses caused diarrhea hypoglycemia- he is having frequent low blood sugars during the day, later in the evening and overnight. He thinks it is happening because he is trying to work hard on losing weight so he is eating less am trying to be more physically active. hyperglycemia-in the evening. Does endorse that sometimes his diets are not the best. CV: Bp today in office is 124/80. He is on lisinopril 40 mg, norvasc 5 mg and spironolactone 25 mg. He is on pravastatin 20 mg. No myalgias. Last ldl was 65. [facility] Medical History Edema HTN (hypertension) Type 2 diabetes mellitus with diabetic polyneuropathy Iron deficiency anemia Cirrhosis Severe persistent allergic asthma Foot drop, left Lumbar radiculopathy, chronic Abnormal ECG Obesity due to excess calories Hx of pancreatitis Acid reflux Elevated alkaline phosphatase measurement Asthma MAURIZIO on CPAP Morbid obesity Degeneration of L4-L5 intervertebral disc Diabetes Anemia Apnea, sleep Dyspnea on exertion Obstructive sleep apnea Surgical History Hx of cholecystectomy History of back surgery Family History Father Diabetes Hearing loss Mother CVD (cardiovascular disease) Thyroid condition Paternal Grandmother Diabetes Paternal Aunt Diabetes Sister No problems noted. Sister No problems noted. 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 Physical Exam Vital Signs: BMI result Body Mass Index 48.4 Const Orientation/consciousness: patient oriented x3 HEENT Ears: hearing grossly normal bilaterally Neck Thyroid: Thyroid normal Lymphatic: no lymphadenopathy noted Resp Auscultation: clear to auscultation bilaterally Cardio Rate: regular rate Rhythm: regular rhythm Heart sounds: S1 normal heart sound present and S2 normal heart sound present Skin General skin exam: no rashes or lesions noted Neuro General: patient oriented x3, gait normal and no focal motor deficits Results AMB Hemoglobin A1c AMB Hemoglobin A1c 6.9 % Last Edit by VIDHI Payne on 09/28/24 14:18 Results Reviewed Results Reviewed: Laboratory Tests 07/07/24 08/24/24 15:17 13:48 Creatinine 1.35 Estimated GFR 55 Hemoglobin A1c % 7.2 H Triglycerides 195 H Cholesterol 128 LDL Cholesterol, Calc 53 HDL Cholesterol 36 L Assessment & Plan Assessment & Plan (1) Type 2 diabetes mellitus with diabetic polyneuropathy: Code(s): E11.42 - Type 2 diabetes mellitus with diabetic polyneuropathy Category: Medical Qualifiers: Diabetes mellitus termite exterminator insulin use: with termite exterminator use Qualified Code(s): E11.42 - Type 2 diabetes mellitus with diabetic polyneuropathy; Z79.4 - vermin exterminator (current) use of insulin Plan: stop glimepride due to lows increase toujeo to 80 units reduce lispro to 35 units with meals continue metformin Follow up in 3 months or sooner if still having low blood sugars. He will send me a message. Patient understands and agrees with this plan. (2) HTN (hypertension): Code(s): I10 - Essential (primary) hypertension Category: Medical Qualifiers: Hypertension type: primary hypertension Qualified Code(s): I10 - Essential (primary) hypertension Plan: wnl continue current plan Orders: Orders AMB Hemoglobin A1c Today E11.42 - Type 2 diabetes mellitus with diabetic polyneuropathy, Z79.4 - detention (current) use of insulin Medications: Changed From insulin lispro 40 units (0.4 mL) subcut TID 30 days 45 mL 3RF To insulin lispro 35 units (0.35 mL) subcut TID 45 mL 3RF 30 days From insulin glargine U-300 conc (Toujeo Max U-300 SoloStar) 80 units subcut DAILY To insulin glargine U-300 conc (Toujeo Max U-300 SoloStar) 80 units (0.2667 mL) subcut DAILY 12 mL 6RF 30 days Refilled glucagon 3 mg/actuation 3 mg intranasal ONCE PRN 2 ea 0RF hypoglycemia Coding Level of Care Code Est Pt Level 4 (45376) Complex EM visit Add On G2211 Diagnoses Type 2 diabetes mellitus with diabetic polyneuropathy, with long-term current use of insulin E11.42; Z79.4 Diabetes mellitus termite exterminator insulin use: with penitentiary use Primary hypertension I10 Hypertension type: primary hypertension
[2024-09-28 14:08] LABS: Glucose, Whole Blood 147 mg/dL (60-115)
--- OUTSIDE RECORDS SUMMARY | 2024-09-28 14:08 | XMS_ITS | Encounter Summary ---
Author Organization [employer] Address [address] [place] [address] 7 [place] [address] Care Team Providers Care Service Technician Copier Name Role Phone Name, Beau FRANKS Primary Care Provider [phone] Bambi Jauregui Unavailable Mechelle Dumont RN Unavailable [phone] Reason for Visit * Reason Comments Med Refill Encounter Details Date Type Department Care Team (Late st Contact Info) Description 06/11/2022 Refill [facility] [address] [place] [id number] Beau Stewart MD [address] [place] [address] [phone] Iron deficiency Social History Tobacco Use Types [...] Description 11/19/2024 11:30 AM EDT Office Visit [facility] [address] [place] [address] [phone] Beau Stewart MD [address] [place] [address] [phone] documented as of this encounter Visit Diagnoses Diagnosis Iron deficiency Disorders of iron metabolism documented in this encounter Care Teams Service Technician Copier Relationship Specialty Start Date End Date Beau Stewart MD [address] [place] [address] PCP - General Family Medicine 06/01/15 Bambi Jauregui Community Health Worker 06/27/2309/14 Mechelle Dumont RN [address] [place] [address] Instructor Creeler 06/27/23 09/15/23 documented as of this encounter
--- OUTSIDE RECORDS SUMMARY | 2024-09-28 14:08 | XMS_ITS | Clinical Summary ---
Author Organization [facility] Address [address] [place] [address] Phone Care Team Providers Care Outside Machinist Helper Name Role Phone Name, Beau FRANKS Primary Care Provider Unavailabl e Medications albuterol (2.5 MG/3ML) 0.083% nebulizer solution [...] Insurance Medicaid [place] Care Teams Outside Machinist Helper Relationship Specialty Start Date End Date Name, MD Beau PCP - General Internal Medicine 10/05/21
== END 2024-09-28 14:23 | disposition home or self-care (01) ==
LOC: HO.ENCR 13:58
PROVIDERS: PCP Internal Medicine Geriatric Medicine; Visit Provider Physician Assistant
DX: E11.42 Type 2 diabetes mellitus with diabetic polyneuropathy (principal); Z79.4 Long term (current) use of insulin; I10 Essential (primary) hypertension

== ENCOUNTER → 2024-09-28 13:57 | Outpatient (BNVA) | payer MEDICAID, SELFPAY | PROVIDERS: PCP Internal Medicine Geriatric Medicine; Visit Provider Physician Assistant | DX: E11.42 Type 2 diabetes mellitus with diabetic polyneuropathy (principal); I10 Essential (primary) hypertension; Z79.4 Long term (current) use of insulin; Z79.84 Long term (current) use of oral hypoglycemic drugs | CPT/HCPCS: 82947; 83036; 99212 ==

== ENCOUNTER → 2024-10-14 12:37 | Outpatient (REF) | payer MEDICAID, SELFPAY ==
--- NOTE | 2024-10-14 12:42 | CA_ITS ---
Transthoracic Echocardiogram Patient (Last, First, Middle): Manjit May A Gender: M Date of : 1970 Age: 54 Procedure Date: 10/14/2024 Procedure Type: Transthoracic Echocardiogram Location: OP Height: 167.64 cm Weight: 137.44 kg BSA: 2.39 m2 Heart Rate: 93 bpm BP: 124 / 80 mmHg Flame Channeler: LENI Referring MD: Beau Stewart MD Golf Club Facer: Ned Akers MD Symptoms: R06.09 GONZALEZ and R60.9 Edema, unspecified type Study Quality: Fair ECG Rhythm: Sinus Conclusions: - 1. Normal LV ejection fraction 55-60% with moderately increased LV wall thickness with impaired relaxation filling pattern and elevated filling pressures 2. Calcific changes noted in aortic valve with normal cardiac valvular Doppler Findings Left Ventricle Normal left ventricular size and systolic function. There is moderately increased left ventricular wall thickness. The visually estimated ejection fraction is between 55-60%. Regional wall motion abnormalities can not be excluded due to suboptimal endocardial definition. Spectral Doppler is indicative of an impaired relaxation filling pattern. Elevated filling pressures. Right Ventricle The right ventricle was not well visualized. Atria The left atrium was not well visualized. Interatrial shunt cannot be excluded. The right atrium was not well visualized. Aortic Valve The aortic valve was not well visualized. There is moderate calcification of the aortic valve. The peak aortic gradient is 16 mmHg.The mean gradient is 8 mmHg. The aortic valve area is 2.56 cm2. There is no aortic valve regurgitation. Mitral Valve The mitral valve was not well visualized. There is no mitral valve stenosis. Pulmonic Valve The pulmonic valve was not well visualized. Tricuspid Valve The tricuspid valve was not well visualized. Tricuspid regurgitation envelope is inadequate for calculation of right ventricular systolic pressure. Indeterminate right atrial pressure. Great Vessels The pulmonary artery was not well visualized. There is no dilatation of the ascending aorta measuring 3.70 cm. Venous The inferior vena cava was not well visualized. Pericardium/Pleural The pericardium was not well visualized. Prior Study Comparison No significant change compared to prior study. Measurements 2D Linear Measurements IVSd: 1.54 0.6-0.9/0.6-1.0 cm LVIDd: 4.34 3.9-5.3/4.2-5.9 cm LVIDd Index: 1.82 2.4-3.2/2.2-3.1 cm/m2 LVIDs: 2.56 2.0-3.6 cm LVPWd: 1.41 0.7-1.1 cm Ao Root: 3.30 2.1-3.5 cm LA Diam: 4.80 2.7-3.8/3.0-4.0 cm LAIDs Index: 2.01 1.5-2.3 cm/m2 LV Mass: 369.72 67-162/88-224 g LV Mass Index: 154.69 43-95/49-115 g/m2 LVOT Diam: 2.00 3.0+(-)1.3 cm 2D Systolic Function EF 4C: 51.00 >55% EF 2C: 65.20 >55% EF BiP: 57.20 >55% Mitral Valve MV VTI: 0.28 MV Pk Damian: 1.29 MV Mn Damian: 0.93 MV Pk Grad: 7.00 MV Mn Grad: 4.00 MV Pk E: 1.04 MV PK A: 1.30 MV Decel Time: 277.00 E/A: 0.80 E'Lateral: 6.31 E'Medial: 5.77 E/E' Med: 18.00 E/E' Lat: 16.50 PHT: 81.00 MVA PHT: 2.72 MVA Continuity: 2.70 Decel Guthrie: 3.76 Aortic Valve AoV Pk Damian: 2.00 AoV Mn Damian: 1.27 AoV VTI: 0.29 AoV Pk Grad: 16.00 Aov Mn Grad: 8.00 ASHOK Cont.VTI: 2.56 LVOT LVOT Pk Damian: 1.42 LVOT Mn Damian: 0.95 LVOT VTI: 0.24 LVOT Pk Grad: 8.00 LVOT Mn Grad: 4.00 LVOT Diam: 2.00 LVOT Area: 3.14 Diastolic Function MV Pk E: 1.04 MV Pk A: 1.30 E/A: 0.80 E'Medial: 5.77 E/E' Med: 18.00 E' Laterial: 6.31 E/E' Lat: 16.50 Great Vessels Aorta Ao Root-2D: 3.30 2.0-3.7 cm Ao Asc: 3.70 2.1-3.4 cm Pulmonary Veins Pulm Vein S/D 2.10 Pulmonary Valve PV Pk Damian: 1.13 Peak PV Grad: 5.00 Updated in Other Vendor System with Status of Final Ned Akers MD electronically signed on 10/15/2024 11:32:44 AM with status of Final
--- OUTSIDE RECORDS SUMMARY | 2024-10-14 13:28 | XMS_ITS | Clinical Summary ---
Author Organization [facility] Address [address] [place] [address] Phone Care Team Providers Care Project Manager Entertainment And Media Name Role Phone Name, Beau FRANKS Primary Care Provider [phone] Medications albuterol (2.5 MG/3ML) 0.083% nebulizer solution [...] Insurance Medicaid [place] Care Teams Project Manager Entertainment And Media Relationship Specialty Start Date End Date Name, MD Beau [address] [place] [id number] PCP - General Internal Medicine 10/05/21
--- OUTSIDE RECORDS SUMMARY | 2024-10-14 13:28 | XMS_ITS | Encounter Summary ---
Author Organization [employer] Address [address] [place] [address] 7 [place] [address] Care Team Providers Care Juvenile Justice Officer Name Role Phone Name, Beau FRANKS Primary Care Provider [phone] Bambi Jauregui Unavailable Mechelle Dumont RN Unavailable [phone] Reason for Visit * Reason Comments Med Refill Encounter Details Date Type Department Care Team (Late st Contact Info) Description 06/11/2022 Refill [facility] [address] [place] [id number] Beau Stewart MD [address] [place] [address] [phone] Iron deficiency Social History Tobacco Use Types [...] Description 11/19/2024 11:30 AM EDT Office Visit [facility] [address] [place] [address] [phone] Beau Stewart MD [address] [place] [address] [phone] documented as of this encounter Visit Diagnoses Diagnosis Iron deficiency Disorders of iron metabolism documented in this encounter Care Teams Juvenile Justice Officer Relationship Specialty Start Date End Date Beau Stewart MD [address] [place] [address] PCP - General Family Medicine 06/01/15 Bambi Jauregui Community Health Worker 06/27/2309/14 Mechelle Dumont RN [address] [place] [address] Hospital Fellow 06/27/23 09/15/23 documented as of this encounter
[2024-10-14 13:56] LABS: MANUAL DIFF FLAG NO
[2024-10-14 14:27] LABS: Hematocrit 29.1 % (42.0-52.0); Hemoglobin 8.7 g/dl (14.0-18.0); Imm Gran Abs Auto 0.03 X10*3/uL (0.00-0.03); Imm Gran Pct Auto 0.4 % (0.0-0.4); Lymphocytes Absolute Auto 1.5 X10*3/uL (1.2-4.9); Mean Corpuscular HGB Conc 29.9 g/dl (31.0-36.0); Mean Corpuscular Hemoglobin 21.8 pg (27.0-33.0); Mean Corpuscular Volume 72.9 fL (80.0-98.0); NRBC Abs Auto 0.000 X10*3/uL (0.0-0.012); NRBC Pct Auto 0.0 /100WBC (0.0-0.2); Platelet Count 376 X10*3/uL (160-400); Red Blood Count 3.99 X10*6/uL (4.60-5.80); White Blood Count 8.1 X10*3/uL (4.8-10.8)
[2024-10-14 15:12] LABS: Anion Gap 13 (12-20); Blood Urea Nitrogen 13 mg/dL (9-16); Calcium 8.7 mg/dL (8.4-10.2); Carbon Dioxide 28 mmol/L (22-29); Chloride 102 mmol/L (96-108); Estimated Glomerular Filt Rate > 60; Potassium 3.8 mmol/L (3.3-5.1); Sodium 139 mmol/L (135-145)
[2024-10-14 15:46] LABS: B Type Natriuretic Peptide 12 pg/mL (<100)
[2024-10-14 16:28] LABS: Total Protein Urine Random < 7 mg/dL (<12)
== END ==
LOC: HO.CARD 12:37
PROVIDERS: Absent Provider Internal Medicine Nephrology; PCP Internal Medicine Geriatric Medicine; Visit Provider Internal Medicine Geriatric Medicine
DX: E11.22 Type 2 diabetes mellitus with diabetic chronic kidney disease (principal); I12.9 Hypertensive chronic kidney disease with stage 1 through stage 4 chronic kidney disease, or unspecified chronic kidney disease; N18.31 Chronic kidney disease, stage 3a; E11.69 Type 2 diabetes mellitus with other specified complication; R60.0 Localized edema; R25.2 Cramp and spasm; R79.89 Other specified abnormal findings of blood chemistry; R06.09 Other forms of dyspnea; I51.89 Other ill-defined heart diseases; Z79.4 Long term (current) use of insulin
CPT/HCPCS: 36415; 80048; 82570; 83880; 84156; 85025; 93306; Q9957

== ENCOUNTER → 2024-10-14 12:42 | Outpatient (BNV) | payer MEDICAID, SELFPAY | PROVIDERS: Absent Provider Internal Medicine Nephrology; PCP Internal Medicine Geriatric Medicine; Visit Provider Internal Medicine Cardiovascular Disease | DX: I35.8 Other nonrheumatic aortic valve disorders (principal); R93.1 Abnormal findings on diagnostic imaging of heart and coronary circulation | CPT/HCPCS: 93306 ==

== ENCOUNTER 2024-10-19 13:52 | Outpatient (AMB) | payer MEDICAID, SELFPAY ==
--- NOTE | 2024-10-16 14:24 | HO.NEPHOV_ITS ---
Intake Visit Reasons: 1mon follow-up w/labs-LVM Allergies pollen extracts Allergy (Verified 09/15/24 14:33) Unknown HPI Comments Details: Manjit was seen in follow up for management of his edema and CKD 3 as well as hypertension. He has a BMI of 49 with hypertension, diabetes as well as sleep apnea among other medical issues. His serum albumin is 3.8 and Pro BNP is normal. He is not known to have any proteinuria. His Echocardiogram has been good. He denies excess sodium in the diet. His urine output is good. He claims to be compliant with his CPAP. He denies any chest pain but has been having worsening shortness of breath, weight gain and PND. He uses CPAP. He denies taking excessive nonsteroidal anti-inflammatories. He has been having lower extremity swelling [facility] Medical History Edema HTN (hypertension) Type 2 diabetes mellitus with diabetic polyneuropathy Iron deficiency anemia Cirrhosis Severe persistent allergic asthma Foot drop, left Lumbar radiculopathy, chronic Abnormal ECG Obesity due to excess calories Hx of pancreatitis Acid reflux Elevated alkaline phosphatase measurement Asthma MAURIZIO on CPAP Morbid obesity Degeneration of L4-L5 intervertebral disc Diabetes Anemia Apnea, sleep Dyspnea on exertion Obstructive sleep apnea Surgical History Hx of cholecystectomy History of back surgery Family History Father Diabetes Hearing loss Mother CVD (cardiovascular disease) Thyroid condition Paternal Grandmother Diabetes Paternal Aunt Diabetes Sister No problems noted. Sister No problems noted. 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 Review of Systems Const All systems reviewed & are unremarkable except as noted in HPI and below Physical Exam Const General: comfortable and no acute distress Orientation/consciousness: patient oriented x3 HEENT Head: Yes normocephalic Mouth: Normal oral and palatal mucosa present Eyes EOM: EOMs intact bilaterally Neck Neck: Yes supple Resp Auscultation: clear to auscultation bilaterally Cardio Jugular venous distension: no JVD Rate: regular rate GI Palpation (GI): Soft to palpation Auscultation: normal bowel sounds General: Yes no CVA tenderness Back/Spine/Pelvis Back: no CVA tenderness Skin General skin exam: no rashes or lesions noted Neuro General: patient oriented x3 and moves all extremities Results Reviewed Nephrology Results: Hgb, (14.0-18.0) 8.7 g/dl L 10/14/24 WBC, (4.8-10.8) 8.1 X10*3/uL 10/14/24 Plt Count, (160-400) 376 X10*3/uL 10/14/24 Sodium, (135-145) 139 mmol/L 10/14/24 Potassium, (3.3-5.1) 3.8 mmol/L 10/14/24 Chloride, (96-108) 102 mmol/L 10/14/24 Carbon Dioxide, (22-29) 28 mmol/L 10/14/24 BUN, (9-16) 13 mg/dL 10/14/24 Creatinine, (0.5-1.4) 1.19 mg/dL 10/14/24 Calcium, (8.4-10.2) 8.7 mg/dL 10/14/24 Urine Creatinine 37.57 mg/dL 10/14/24 Protein/Creatinin Ratio TNP 10/14/24 Assessment & Plan Assessment & Plan (1) HTN (hypertension): Code(s): I10 - Essential (primary) hypertension Category: Medical Qualifiers: Hypertension type: primary hypertension Qualified Code(s): I10 - Essential (primary) hypertension (2) CKD stage 3a, GFR 45-59 ml/min: Code(s): N18.31 - Chronic kidney disease, stage 3a Category: Medical (3) Edema: Code(s): R60.9 - Edema, unspecified Category: Medical Qualifiers: Edema type: localized Qualified Code(s): R60.0 - Localized edema Plan Manjit has edema most likely due to multifactorial etiology. His last Echocardiogram was OK. He is not known to have any proteinuria. His last serum albumin was 3.8. His Pro BNP had been normal. I reviewed his abdominal USS. His iron studies have been fine. He is on spironolactone. I increased bumetanide to 2 mg twice daily.His uric acid is high. He is on Allopurinol 100 mg daily. He is started on Jardiance. I started him on Metolazone 5 mg once a week. Blood work in 3 weeks. He may have to see a Liver specialist. He should minimize sodium in the diet and should get medical help to lose weight. He should avoid nonsteroidal anti-inflammatories. Answered all questions Coding Diagnoses Primary hypertension I10 Hypertension type: primary hypertension CKD stage 3a, GFR 45-59 ml/min N18.31 Localized edema R60.0 Edema type: localized
--- NOTE | 2024-10-19 13:58 | HO.NEPHOV_ITS ---
Vital Signs 10/19/24 14:02 Height 5 ft 6 in Weight 296 lb 8 oz BMI 47.9 BP 134/70 Blood Pressure Location Lt brachial Position Sitting Pulse 109 H Pulse Source Pulse Oximeter Pulse Oximetry (%) 96 Oxygen Delivery Method Room Air Intake Visit Reasons: 1mon follow-up w/labs-LVM Production Support Manager Required: No Accompanied by: Self / Same As Patient Allergies pollen extracts Allergy (Verified 10/19/24 14:02) Unknown HPI Comments Details: Manjit was seen in follow up for management of his edema and CKD 3 as well as hypertension. He has a BMI of 49 with hypertension, diabetes as well as sleep apnea among other medical issues. His serum albumin is ok and Pro BNP is normal. He is not known to have any proteinuria. His Echocardiogram has been good. He denies excess sodium in the diet. His urine output is good. He claims to be compliant with his CPAP. He denies any chest pain but has been having worsening shortness of breath, weight gain and PND. He uses CPAP. He denies taking excessive nonsteroidal anti-inflammatories. He has been having lower extremity swelling [facility] Medical History Edema HTN (hypertension) Type 2 diabetes mellitus with diabetic polyneuropathy Iron deficiency anemia Cirrhosis Severe persistent allergic asthma Foot drop, left Lumbar radiculopathy, chronic Abnormal ECG Obesity due to excess calories Hx of pancreatitis Acid reflux Elevated alkaline phosphatase measurement Asthma MAURIZIO on CPAP Morbid obesity Degeneration of L4-L5 intervertebral disc Diabetes Anemia Apnea, sleep Dyspnea on exertion Obstructive sleep apnea Surgical History Hx of cholecystectomy History of back surgery Family History Father Diabetes Hearing loss Mother CVD (cardiovascular disease) Thyroid condition Paternal Grandmother Diabetes Paternal Aunt Diabetes Sister No problems noted. Sister No problems noted. 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 Review of Systems Const All systems reviewed & are unremarkable except as noted in HPI and below Physical Exam Const General: comfortable and no acute distress Orientation/consciousness: patient oriented x3 HEENT Head: Yes normocephalic Mouth: Normal oral and palatal mucosa present Eyes EOM: EOMs intact bilaterally Neck Neck: Yes supple Resp Auscultation: clear to auscultation bilaterally Cardio Jugular venous distension: no JVD Rate: regular rate GI Palpation (GI): Soft to palpation Auscultation: normal bowel sounds General: Yes no CVA tenderness Back/Spine/Pelvis Back: no CVA tenderness Skin General skin exam: no rashes or lesions noted Neuro General: patient oriented x3 and moves all extremities Extrem General: Yes no pedal edema Results Reviewed Nephrology Results: Hgb, (14.0-18.0) 8.7 g/dl L 10/14/24 WBC, (4.8-10.8) 8.1 X10*3/uL 10/14/24 Plt Count, (160-400) 376 X10*3/uL 10/14/24 Sodium, (135-145) 139 mmol/L 10/14/24 Potassium, (3.3-5.1) 3.8 mmol/L 10/14/24 Chloride, (96-108) 102 mmol/L 10/14/24 Carbon Dioxide, (22-29) 28 mmol/L 10/14/24 BUN, (9-16) 13 mg/dL 10/14/24 Creatinine, (0.5-1.4) 1.19 mg/dL 10/14/24 Calcium, (8.4-10.2) 8.7 mg/dL 10/14/24 Urine Creatinine 37.57 mg/dL 10/14/24 Protein/Creatinin Ratio TNP 10/14/24 Assessment & Plan Assessment & Plan (1) HTN (hypertension): Code(s): I10 - Essential (primary) hypertension Category: Medical Qualifiers: Hypertension type: primary hypertension Qualified Code(s): I10 - Essential (primary) hypertension (2) CKD stage 3a, GFR 45-59 ml/min: Code(s): N18.31 - Chronic kidney disease, stage 3a Category: Medical (3) Edema: Code(s): R60.9 - Edema, unspecified Category: Medical Qualifiers: Edema type: localized Qualified Code(s): R60.0 - Localized edema (4) Hyperuricemia: Code(s): E79.0 - Hyperuricemia without signs of inflammatory arthritis and tophaceous disease Category: Medical (5) Anemia: Code(s): D64.9 - Anemia, unspecified Category: Medical Qualifiers: Anemia type: unspecified type Qualified Code(s): D64.9 - Anemia, unspecified Plan Manjit has edema most likely due to multifactorial etiology. His last Echocardiogram was OK. He is not known to have any proteinuria. His last serum albumin was 3.8. His Pro BNP had been normal. I reviewed his abdominal USS. His iron studies have been fine. He is on spironolactone. He can C/W bumetanide 2 mg twice daily.His uric acid is high. He is on Allopurinol 100 mg daily. He on Jardiance. He may have to see a Liver specialist. His Hb is low which needs W/U. I referred him to Heamtology.He should minimize sodium in the diet and should get medical help to lose weight. He should avoid nonsteroidal anti- inflammatories. Answered all questions Orders: Orders Creatinine 2 Months I10 - Essential (primary) hypertension, N18.31 - Chronic kidney disease, stage 3a, R60.0 - Localized edema Electrolytes 2 Months I10 - Essential (primary) hypertension, N18.31 - Chronic kidney disease, stage 3a, R60.0 - Localized edema Albumin Level 2 Months I10 - Essential (primary) hypertension, N18.31 - Chronic kidney disease, stage 3a, R60.0 - Localized edema Uric Acid 2 Months E79.0 - Hyperuricemia without signs of inflammatory arthritis and tophaceous disease, I10 - Essential (primary) hypertension, N18.31 - Chronic kidney disease, stage 3a Blood Urea Nitrogen 2 Months I10 - Essential (primary) hypertension, N18.31 - Chronic kidney disease, stage 3a, R60.0 - Localized edema Protein Creatinine Ratio, Ur 2 Months I10 - Essential (primary) hypertension, N18.31 - Chronic kidney disease, stage 3a, R60.0 - Localized edema Referrals Hematology & Oncology Referral D64.9 - Anemia, unspecified Coding Level of Care Code Est Pt Level 4 (12356) Diagnoses Primary hypertension I10 Hypertension type: primary hypertension CKD stage 3a, GFR 45-59 ml/min N18.31 Localized edema R60.0 Edema type: localized Hyperuricemia E79.0 Anemia, unspecified type D64.9 Anemia type: unspecified type
[2024-10-19 14:02] VITALS: BP 134/70; PULSE 109; O2SAT 96; BMI 47.9
--- OUTSIDE RECORDS SUMMARY | 2024-10-19 15:12 | XMS_ITS | Clinical Summary ---
Author Organization [facility] Address [address] [place] [address] Phone Care Team Providers Care Career Consultant Name Role Phone Name, Beau FRANKS Primary Care Provider [phone] Medications albuterol (2.5 MG/3ML) 0.083% nebulizer solution [...] Insurance Medicaid [place] Care Teams Career Consultant Relationship Specialty Start Date End Date Name, MD Beau [address] [place] [id number] PCP - General Internal Medicine 10/05/21
== END 2024-10-19 14:10 | disposition home or self-care (01) ==
LOC: HO.HKA 13:52
PROVIDERS: PCP Internal Medicine Geriatric Medicine; Visit Provider Internal Medicine Nephrology
DX: I10 Essential (primary) hypertension (principal); N18.31 Chronic kidney disease, stage 3a; R60.0 Localized edema; E79.0 Hyperuricemia without signs of inflammatory arthritis and tophaceous disease; D64.9 Anemia, unspecified
CPT/HCPCS: 99214

== ENCOUNTER → 2024-10-19 13:52 | Outpatient (BNVA) | payer MEDICAID, SELFPAY | PROVIDERS: PCP Internal Medicine Geriatric Medicine; Visit Provider Internal Medicine Nephrology | DX: I10 Essential (primary) hypertension (principal); N18.31 Chronic kidney disease, stage 3a; R60.0 Localized edema; E79.0 Hyperuricemia without signs of inflammatory arthritis and tophaceous disease; D64.9 Anemia, unspecified | CPT/HCPCS: 99212 ==

== ENCOUNTER → 2024-11-03 14:23 | Outpatient (BNV) | payer MEDICAID, SELFPAY | PROVIDERS: PCP Internal Medicine Geriatric Medicine; Visit Provider Internal Medicine Medical Oncology | DX: D50.9 Iron deficiency anemia, unspecified (principal) | CPT/HCPCS: 99204 ==

== ENCOUNTER 2024-11-19 13:58 | Outpatient (AMB) | payer MEDICAID, SELFPAY ==
--- NOTE | 2024-11-19 14:04 | A.OFFVIS_ITS ---
Vital Signs 3 11/19/24 14:09 Height 5 ft 6 in Weight 299 lb 13.259 oz BMI 48.4 BP 130/70 Blood Pressure Location Rt brachial Position Sitting Pulse 97 Pulse Source Pulse Oximeter Oxygen Delivery Method Room Air Intake Visit Reasons: T2DM Intake Note: Patient presents today for a follow-up on Type 2 Diabetes Mellitus: Last Diabetic eye exam was on: 01/2024 Last Podiatry exam was on: Patient does not see a Office Bookkeeper Most recent HbA1c: 6.9%, 09/28/2024 Random Glucose- 267 mg/dL, Today Heavy Equipment Operator Apprentice Required: No Accompanied by: Self / Same As Patient Allergies mold Allergy (Unknown, Verified 11/19/24 14:10) Difficulty Breathing pollen extracts Allergy (Verified 11/19/24 14:10) Unknown HPI Comments Details: Pt is a 54 y/o male who presents today for a diabetic follow-up. He has a hx of htn, ED, gerd, hld, t2dm, gallstone pancreatitis, asthma, maurizio on cpap, anemia and depression. -DM- A1c is 6.9% 09/2024, previously 7.0% 04/2024. He is currently on toujeo 80, lispro 36-40 units TID, glimepiride 1mg in am, and 1000 mg metformin daily. - Patient currently on 80 units once daily and 35-40 units before meals. - Previously had lows on glimepiride, which was discontinued, but glucose levels increased. Glimepiride was reintroduced at a lower dose (1 mg daily). - Reports high glucose levels mainly at night between 10 PM and midnight. - Experiences fluctuating weight due to fluid retention and reports edema in the feet. - Noted low hemoglobin levels; currently on oral iron supplements for eight weeks. 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 - Reports fatigue and breathlessness, uses CPAP for sleep. - Edema in feet. - Mild neuropathy dictated during podiatry exam 2 months ago - Ophthalmic: Last eye exam in January, no significant issues reported, some retinopathy improvement noted. - Intolerant to Trulicity, Mounjaro, and Ozempic due to eructation/flatulence foul, bloating. Jardiance caused UTIs/yeast infections (even with A1c of 7). Metformin at higher doses caused diarrhea. Physical exam: General: Well appearing. NAD. Morbidly obese Neck/Thyroid: Thyroid not visibly enlarged Eyes: No conjunctival injection, not lid lag or proptosis CV: RRR, no murmur. Bilateral 2+ pitting edema Resp: Lungs clear to auscultation bilaterally\ Abdomen: Obese, nontender. nondistended Extremities/Neuro: No weakness or tremor of outstretched hands CGM data: Interpretation: Hypoglycemia possibly in the afternoon evening and overnight. Advised the patient to use the sliding scale and increase Toujeo. [facility] Medical History Edema HTN (hypertension) Type 2 diabetes mellitus with diabetic polyneuropathy Iron deficiency anemia Cirrhosis Severe persistent allergic asthma Foot drop, left Lumbar radiculopathy, chronic Abnormal ECG Obesity due to excess calories Hx of pancreatitis Acid reflux Elevated alkaline phosphatase measurement Asthma MAURIZIO on CPAP Morbid obesity Degeneration of L4-L5 intervertebral disc Diabetes Anemia Apnea, sleep Dyspnea on exertion Obstructive sleep apnea Surgical History Hx of cholecystectomy History of back surgery Family History Father Diabetes Hearing loss Mother CVD (cardiovascular disease) Thyroid condition Paternal Grandmother Diabetes Paternal Aunt Diabetes Sister No problems noted. Sister No problems noted. 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 Office Procedures Glucose Monitoring Details 91203 - Glucose Monitoring, continuous Procedure code (CPT) selection complete Assessment & Plan Assessment & Plan (1) Type 2 diabetes mellitus with diabetic polyneuropathy: Code(s): E11.42 - Type 2 diabetes mellitus with diabetic polyneuropathy Category: Medical Qualifiers: Diabetes mellitus detention insulin use: with detention use Qualified Code(s): E11.42 - Type 2 diabetes mellitus with diabetic polyneuropathy; Z79.4 - MCC (current) use of insulin Plan Type 2 diabetes with hyperglycemia, given the patient's own report of recent anemia, that A1c of 6.9 is not entirely reliable, but the CGM GMI was 7.6%. Patient currently using fixed doses for meals and subjective evaluation of when to use what dose for it, which could explain why he has hypoglycemia in the afternoon. Given that the patient is already on insulin injection and he developed hypoglycemia with glimepiride, it seems reasonable to stop glimepiride at this point and adjust insulin dosing, as patient is significantly insulin resistant given obesity and insulin doses requires for diabetes control. - Increase daily insulin to 84 units. - Provide short anterior insulin based on sliding scale and patient instruction - Discontinue glimepiride due to risk of hypoglycemia. - Consider insulin pump for better management in the future. - Continue lifestyle modifications: balanced diet, portion control, and physical activity as tolerated. - Regular follow-up in three months for reassessment. Orders: Orders 2 AMB Glucose Monitoring Today E11.42 - Type 2 diabetes mellitus with diabetic polyneuropathy, Z79.4 - MCC (current) use of insulin Medications: Discontinued 2 glimepiride administer with breakfast Discontinued Reason: Doctor's Order 1 mg PO QAM 90 tabs 0RF Patient Instructions: Increase Toujeo 84 units Stop Glimepiride Insulin Dose (units) ? Take 10?15 minutes prior to the meal Blood Sugar Level (mg/dl) Small Meal?(low carb <30g like salad, eggs with meat) Normal Meal?(30?60g like sandwich, chips, meat, small starch portion) Large Meal?(>60g like pizza, lasagna, Armenian food, meal + dessert) <100 2 6 10 101?150 6 10 14 151?200 10 14 18 201?250 14 18 22 251?300 18 22 26 301?350 22 26 30 351?400 26 30 34 >400 30 34 38 Coding Level of Care Code Est Pt Level 4 (87547) Diagnoses Type 2 diabetes mellitus with diabetic polyneuropathy, with long-term current use of insulin E11.42; Z79.4 Diabetes mellitus detention insulin use: with detention use CPT Codes Details - CPT: 64443 - Glucose Monitoring, continuous ([id number]) Time Spent (min) 45 Comment Time spent on review of previous records, history, exam/plan and patient education.
[2024-11-19 14:09] VITALS: BP 130/70; PULSE 97; BMI 48.4
[2024-11-19 14:21] LABS: Glucose, Whole Blood 267 mg/dL (60-115)
--- OUTSIDE RECORDS SUMMARY | 2024-11-19 18:28 | XMS_ITS | Clinical Summary ---
Author Organization [facility] Address [address] [place] [address] Phone Care Team Providers Care Learning Support Aide Name Role Phone Name, Beau FRANKS Primary Care Provider [phone] Medications albuterol (2.5 MG/3ML) 0.083% nebulizer solution [...] Insurance Medicaid [place] Care Teams Learning Support Aide Relationship Specialty Start Date End Date Name, MD Beau [address] [place] [address] PCP - General Internal Medicine 10/05/21
== END 2024-11-19 14:50 | disposition home or self-care (01) ==
LOC: HO.ENCR 13:59
PROVIDERS: PCP Internal Medicine Geriatric Medicine; Visit Provider Student in an Organized Health Care Education/Training Program
DX: E11.42 Type 2 diabetes mellitus with diabetic polyneuropathy (principal); Z79.4 Long term (current) use of insulin
CPT/HCPCS: 99214

== ENCOUNTER → 2024-11-19 13:58 | Outpatient (BNVA) | payer MEDICAID, SELFPAY | PROVIDERS: PCP Internal Medicine Geriatric Medicine; Visit Provider Student in an Organized Health Care Education/Training Program | DX: E11.42 Type 2 diabetes mellitus with diabetic polyneuropathy (principal) | CPT/HCPCS: 82947; 95250; 99212 ==

== ENCOUNTER 2024-12-23 14:27 | Outpatient (AMB) | payer MEDICAID, SELFPAY ==
--- NOTE | 2024-12-23 14:34 | A.OFFVIS_ITS ---
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 Required: No Accompanied by: Self / Same As Patient Allergies mold Allergy (Unknown, Verified 11/19/24 14:10) Difficulty Breathing pollen extracts Allergy (Verified 11/19/24 14:10) Unknown Medication List - Last Reconciled 12/23/24 by Nick Benavides MD acetaminophen 500 mg PO Q6H PRN albuterol sulfate 90 mcg/actuation (Ventolin HFA) 2 puffs inhalation Q4-6H PRN allopurinol 100 mg PO DAILY blood sugar diagnostic (FreeStyle Lite Strips) As directed to check blood for glucose 4-6 times per day blood-glucose meter (FreeStyle Lite Meter kit) As directed to check blood for glucose 4-6 times per day blood-glucose sensor (PowerDsineStyle Monty 3 Plus Sensor device) Use daily As directed to monitor glucose blood-glucose,sales representative education courses,cont (FreeStyle Monty 3 [place]) Use daily As directed to monitor blood glucose Breo Ellipta 200-25 mcg/dose (fluticasone furoate-vilanterol) 1 ea PO DAILY NS bumetanide 2 mg (2 x 1 mg) PO BID 90 days calcium carbonate (Calcium Antacid) mg PO TID cyanocobalamin (vitamin B-12) 1,000 mcg sublingual DAILY diclofenac sodium 1% 2 grams topical QID PRN ferrous sulfate 325 mg PO DAILY gabapentin 300 mg PO TID glucagon 3 mg/actuation 3 mg intranasal ONCE PRN glucose (Dex4 Glucose) 16 grams (4 x 4 gram) PO Q15M PRN 30 days insulin glargine U-300 conc (Toujeo Max U-300 SoloStar) 80 units (0.2667 mL) subcut DAILY 30 days insulin lispro 35 units (0.35 mL) subcut TID 30 days Lactobacillus rhamnosus GG (Culturelle) 1 cap PO DAILY 90 days lancets (Accu-Chek Softclix Lancets) use once daily As directed to monitor blood sugars lisinopril 30 mg PO DAILY magnesium oxide 400 mg PO TID metformin ER 500 mg PO BID metolazone 5 mg orally once a week; 90 days omeprazole 20 mg PO BID pen needle, diabetic Use QID As directed pen needle, diabetic Use QID As directed pravastatin 20 mg PO BEDTIME simethicone (Gas Relief (simethicone)) 125 mg PO BID-QID PRN 30 days sodium chloride 0.9% 3 mL inhalation 6XD PRN spironolactone 25 mg PO DAILY tadalafil (Cialis) 20 mg PO .PRN PRN 90 days tadalafil (Cialis) 5 mg PO DAILY 90 days HPI Comments Details: [age] year gentleman who is here for 1st office visit. He has morbid obesity, obstructive sleep apnea on CPAP, significant edema and concern for congestive heart failure and currently on Bumex spironolactone and metolazone. He was also using gabapentin for peripheral neuropathy but since he learned that it can cause edema he has stopped using it. He has dyspnea with minimal activity. He has orthopnea. He has background of hypotension were bloo d pressure appears to be stable. He is a diuretic. Denying any exertional chest discomfort. [facility] Medical History Edema HTN (hypertension) Type 2 diabetes mellitus with diabetic polyneuropathy Iron deficiency anemia Cirrhosis Severe persistent allergic asthma Foot drop, left Lumbar radiculopathy, chronic Abnormal ECG Obesity due to excess calories Hx of pancreatitis Acid reflux Elevated alkaline phosphatase measurement Asthma MAURIZIO on CPAP Morbid obesity Degeneration of L4-L5 intervertebral disc Diabetes Anemia Apnea, sleep Dyspnea on exertion Obstructive sleep apnea Surgical History Hx of cholecystectomy History of back surgery Family History (Updated 12/23/24 @ 14:37 by Namita Cobb CMA) Father Diabetes Hearing loss Mother CVD (cardiovascular disease) Thyroid condition Paternal Grandmother Diabetes High blood pressure Paternal Aunt Diabetes High blood pressure Sister No problems noted. Sister No problems noted. 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 Review of Systems Const Denies chills, Denies fatigue, Denies fever(s), Denies frequent falls, Denies weakness, Denies weight gain and Denies weight loss ENT Denies dizziness Card Denies chest pain, Denies leg edema, Denies lightheadedness, Denies palpitations, Reports dyspnea, Reports dyspnea on exertion and Reports orthopnea Resp Denies cough, Reports dyspnea and Reports dyspnea on exertion GI Denies bloating and Denies change in bowel habits Musc Denies muscle weakness, Denies numbness and Denies tingling Neuro Denies dizziness, Denies frequent falls, Denies numbness, Denies tingling and Denies weakness Endo Denies fatigue and Denies palpitations Physical Exam Vital Signs: Last Vital Signs Pulse 92 12/23/24 14:35 BP 130/64 12/23/24 14:35 BMI result Body Mass Index 48.2 GENERAL APPEARANCE: in no acute distress, morbidly obese. NECK: no carotid bruit, no jugular venous distention. SKIN: no suspicious lesions, warm and dry. HEART: no murmurs, regular rate and rhythm. LUNGS: clear to auscultation bilaterally. ABDOMEN: soft, nontender. EXTREMITIES: 1 to 2+ edema. PERIPHERAL PULSES: equal. NEUROLOGIC: No gross deficits, AAO X 3 Office Procedures EKG Details: Sinus rhythm 92 beats per minute, normal axis, low voltage, nonspecific ST changes, QTC 432 milliseconds. [id number], Complete Assessment & Plan Assessment & Plan (1) HTN (hypertension): Code(s): I10 - Essential (primary) hypertension Category: Medical Qualifiers: Hypertension type: primary hypertension Qualified Code(s): I10 - Essential (primary) hypertension (2) Dyspnea on exertion: Code(s): R06.00 - Dyspnea, unspecified Category: Medical (3) Diastolic CHF: Code(s): I50.30 - Unspecified diastolic (congestive) heart failure Category: Medical Plan Pleasant 54 year gentleman here for follow-up. He has dyspnea with activities which is multifactorial. He does have diastolic dysfunction with elevated filling pressures on echocardiography. Clinically he has peripheral edema and this can be related to use of gabapentin. He has elevated filling pressures by echocardiography. He is morbidly obese and physical exam he is not very reliable. Overall I think he is okay with the current medication regimen and I do not plan to change any medications currently. Given the fact that he has dyspnea and has risk factors for coronary disease- arranging has stress MIBI. We will do modified Jaime protocol and if he could not achieve target heart rate then we will consider Lexiscan. He will discuss with his broadcast journalist whether he is a good candidate for Mounjaro or Ozempic. If he can lose weight it will definitely help his diastolic dysfunction and symptoms. He will follow up with us in 3 months. Thank you for allowing me to participate in the care of your patient. Please feel free to contact me if you have any questions. Orders: Orders CA stress test Today R06.00 - Dyspnea, unspecified NM cardiolite stress test Today R06.00 - Dyspnea, unspecified Coding Level of Care Code New Pt Level 4 (44925) Diagnoses Primary hypertension I10 Hypertension type: primary hypertension Dyspnea on exertion R06.00 Diastolic CHF I50.30 CPT Codes EKG - CPT: [id number]-[id number], Complete ([id number])
[2024-12-23 14:35] VITALS: BP 130/64; PULSE 92; BMI 48.2
--- OUTSIDE RECORDS SUMMARY | 2024-12-23 18:48 | XMS_ITS | Encounter Summary ---
Author Organization [employer] Address [address] [place] [address] [place] [address] Care Team Providers Care Director Of Consulting Services Name Role Phone NameBeau MD Primary Care Provider [phone] Bambi Jauregui Unavailable Mechelle Dumont RN Unavailable Unavailable Reason for Visit * Reason Comments Med Refill Encounter Details Date Type Department Care Team (Late st Contact Info) Description 06/08/2022 Refill [facility] MEDICINE [address] [place] [address] NameBeau MD [address] [place] [address] Asthma, unspecified asthma severity, unspecified whether complicated, [...] persistent documented in this encounter Care Teams Director Of Consulting Services Relationship Specialty Start Date End Date NameBeau MD [address] [place] [address] PCP - General Family Medicine 06/01/15 Bambi Jauregui Community Health Worker 06/27/2309/14 Mechelle Dumont RN Director Client 06/27/23 09/15/23 documented as of this encounter
--- OUTSIDE RECORDS SUMMARY | 2024-12-23 18:48 | XMS_ITS | Encounter Summary ---
Author Organization [employer] Address [address] [place] [address] 7 [place] [address] Care Team Providers Care Store Gift Wrap Associate Name Role Phone Name, Beau FRANKS Primary Care Provider [phone] Bambi Jauregui Unavailable Mechelle Dumont RN Unavailable Unavailable Encounter Details Date Type Department Care Team ([facility] st Contact Info) Description 03/26/[address] [facility] CHC MED & PEDS [address] [place], [place] [phone] Kindra Woodall LPN Social History Tobacco Use [...] on filedocumented in this encounter Care Teams Store Gift Wrap Associate Relationship Specialty Start Date End Date Name, MD Beau [address] [place] [address] PCP - General Family Medicine 06/01/15 Bambi Jauregui Community Health Worker 06/27/2309/14 Mechelle Dumont, ISABLE Heel Seat Pounder 06/27/23 09/15/23 documented as of this encounter
--- OUTSIDE RECORDS SUMMARY | 2024-12-23 18:48 | XMS_ITS | Encounter Summary ---
Author Organization [employer] Address [address] [place] [address] 7 [place] [address] Care Team Providers Care Trolley Collector Name Role Phone Name, Beau FRANKS Primary Care Provider [phone] Bambi Jauregui Unavailable Mechelle Dumont RN Unavailable Unavailable Encounter Details Date Type Department Care Team ([facility] st Contact Info) Description 02/28/2022 Orders Only [facility] CHC MED & PEDS [address] [place], [place] [phone] Kindra Woodall LPN Social History Tobacco Use [...] on filedocumented in this encounter Care Teams Trolley Collector Relationship Specialty Start Date End Date Name, MD Beau [address] [place] [address] PCP - General Family Medicine 06/01/15 Bambi Jauregui Community Health Worker 06/27/2309/14 Mechelle Dumont RN Economic Consultant 06/27/23 09/15/23 documented as of this encounter
--- OUTSIDE RECORDS SUMMARY | 2024-12-23 18:48 | XMS_ITS | Encounter Summary ---
Author Organization [employer] Address [address] [place] [address] 7 [place] [address] Care Team Providers Care Environmental Field Office Manager Name Role Phone Name, Beau FRANKS Primary Care Provider [phone] Bambi Jauregui Unavailable Mechelle Dumont RN Unavailable Unavailable Encounter Details Date Type Department Care Team (Late st Contact Info) Description 03/07/2022 Orders Only [facility] MEDICINE [address] [place], [place] [phone] Ekaterina Pappas LPN Social History Tobacco Use [...] on filedocumented in this encounter Care Teams Environmental Field Office Manager Relationship Specialty Start Date End Date Name, MD Beau [address] [place] [address] PCP - General Family Medicine 06/01/15 Bambi Jauregui Community Health Worker 06/27/2309/14 Mechelle Dumont RN Roll Weigher 06/27/23 09/15/23 documented as of this encounter
--- OUTSIDE RECORDS SUMMARY | 2024-12-23 18:48 | XMS_ITS | Encounter Summary ---
Author Organization [employer] Address [address] [place] [address] 7 [place] [address] Care Team Providers Care Carbon Furnace Operator Name Role Phone Name, Beau FRANKS Primary Care Provider [phone] Reason for Visit * Reason Onset Date Comments Med Refill 12/11/2024 Encounter Details Date Type Department Care Team ([facility] st Contact Info) Description 12/11/2024 Telephone [facility] MEDICINE [address] [place], [place] [phone] Name, MD Beau [address] [place] [address] Med Refill Social History Tobacco Use Types Packs/Day Years Used Date Smoking Tobacco: Never Passive Smoke Exposure: Never Smokeless Tobacco: Never Alcohol Use Standard Drinks/Week Comments Never 0 (1 standard drink = 0.6 oz pur e alcohol) Depression Answer Date Recorded Patient Health Questionnaire-9 Score 25 11/19/2024 Patient Health Questionnaire-9 Score 25 11/19/2024 Last PHQ-9: Questionnaire Data Not on file 0 11/19/2024 Housing Stability Answer Date Recorded What is [...] Answer Date Recorded Patient Health Questionnaire-2 Score 4 11/19/2024 Internet Access Answer Date Recorded Internet Access [...] encounter Miscellaneous Notes * Telephone Encounter - Gabino Koenig - 12/11/2024 2:11 PM EDT TC from pt requesting medication refill. Medications needing refill : Ventolin HFA 108 (90 Base) MCG/ACT inhaler To be sent to: [id number] [place] - [address] [place] [address] Requesting more refills on script documented in this encounter Plan of Treatment Not on file documented as of this encounter Visit Diagnoses Not on filedocumented in this encounter Additional Health Concerns Assessment Noted Time PHQ-9 Depression Total Score: 25 025 11:48 AM EDT documented as of this encounter Care Teams Carbon Furnace Operator Relationship Specialty Start Date End Date Name, MD Beau [address] [place] [address] PCP - General Family Medicine 06/01/15 documented as of this encounter
--- OUTSIDE RECORDS SUMMARY | 2024-12-23 18:48 | XMS_ITS | Encounter Summary ---
Author Organization [employer] Address [address] [place] [address] 7 [place] [address] Care Team Providers Care Group Chief Operator Name Role Phone Name, Baeu FRANKS Primary Care Provider [phone] Bambi Jauregui Unavailable Mechelle Dumont RN Unavailable Unavailable Reason for Visit * Reason Comments Med Refill Encounter Details Date Type Department Care Team ([facility] st Contact Info) Description 06/13/2023 Refill [facility] MEDICINE [address] [place] [address] Name, MD Beau [address] [place] [address] Asthma, unspecified asthma severity, unspecified whether complicated, [...] documented as of this encounter Care Teams Group Chief Operator Relationship Specialty Start Date End Date Name, MD Beau [address] [place] [address] PCP - General Family Medicine 06/01/15 Bambi Jauregui Community Health Worker 06/27/2309/14 Mechelle Dumont RN Pastor 06/27/23 09/15/23 documented as of this encounter
--- OUTSIDE RECORDS SUMMARY | 2024-12-23 18:48 | XMS_ITS | Encounter Summary ---
Author Organization [employer] Address [address] [place] [address] [place] [address] Care Team Providers Care Digital Account Executive Name Role Phone NameBeau MD Primary Care Provider [phone] Bambi Jauregui Unavailable Mechelle Dumont RN Unavailable Unavailable Reason for Visit * Reason Comments Med Refill Encounter Details Date Type Department Care Team (Late st Contact Info) Description 05/28/2022 Refill [facility] MEDICINE [address] [place] [address] NameBeau MD [address] [place] [address] Asthma, unspecified asthma severity, unspecified whether complicated, [...] persistent documented in this encounter Care Teams Digital Account Executive Relationship Specialty Start Date End Date NameBeau MD [address] [place] [address] PCP - General Family Medicine 06/01/15 Bambi Jauregui Community Health Worker 06/27/2309/14 Mechelle Dumont RN Softball Umpire 06/27/23 09/15/23 documented as of this encounter
--- OUTSIDE RECORDS SUMMARY | 2024-12-23 18:48 | XMS_ITS | Encounter Summary ---
Author Organization [employer] Address [address] [place] [address] 7 [place] [address] Care Team Providers Care Pattern Drum Maker Name Role Phone Name, Beau FRANKS Primary Care Provider [phone] Bambi Jauregui Unavailable Mechelle Dumont RN Unavailable Unavailable Reason for Visit * Reason Onset Date Comments Med Refill 08/21/2022 Encounter Details Date Type Department Care Team ([facility] st Contact Info) Description 08/21/2022 Telephone [facility] MEDICINE 230 [place] [address] Name, MD Beau [address] [place] [address] Med Refill Social History Tobacco Use Types [...] to PCP. * Telephone Encounter - Isidra Jauregui - 08/21/2022 4:11 PM EDT Tc from pt requesting medication refill for albuterol (Ventolin HFA) 108 (90 Base) MCG/ACT inhaler documented in this encounter Plan of Treatment Not on file documented as of this encounter Visit Diagnoses Not on filedocumented in this encounter Care Teams Pattern Drum Maker Relationship Specialty Start Date End Date Name, MD Beau [address] [place] [address] PCP - General Family Medicine 06/01/15 Bambi Jauregui Community Health Worker 06/27/2309/14 Mechelle Dumont RN Financial Agent 06/27/23 09/15/23 documented as of this encounter
--- OUTSIDE RECORDS SUMMARY | 2024-12-23 18:48 | XMS_ITS | Encounter Summary ---
Author Organization [employer] Address [address] [place] [address] 7 [place] [address] Care Team Providers Care Chart Reader Name Role Phone Name, Beau FRANKS Primary Care Provider [phone] Reason for Visit * Reason Onset Date Comments Med Refill 10/04/2023 Encounter Details Date Type Department Care Team (Late st Contact Info) Description 10/04/2023 Telephone [facility] MEDICINE [address] [place], [place] [phone] Name, MD Beau [address] [place] [address] Med Refill Social History Tobacco Use Types [...] MG EC tablet To be sent to: [id number] [place], [place] - [address] [facility] documented in this encounter Plan of Treatment Not on file documented as of this encounter Visit Diagnoses Not on filedocumented in this encounter Additional Health Concerns Assessment Noted Time PHQ-9 Depression Total Score: 19 023 3:46 PM EDT documented as of this encounter Care Teams Chart Reader Relationship Specialty Start Date End Date Name, MD Beau [address] [place] [address] PCP - General Family Medicine 06/01/15 documented as of this encounter
--- OUTSIDE RECORDS SUMMARY | 2024-12-23 18:48 | XMS_ITS | Encounter Summary ---
Author Organization [employer] Address [address] [place] [address] 7 [place] [address] Care Team Providers Care Server Support Technician Name Role Phone Name, Beau FRANKS Primary Care Provider [phone] Bambi Jauregui Unavailable Mechelle Dumont RN Unavailable Unavailable Reason for Visit * Reason Comments Med Refill Encounter Details Date Type Department Care Team ([facility] st Contact Info) Description 06/10/2023 Refill [facility] MEDICINE [address] [place] [address] Name, MD Beau [address] [place] [address] Asthma, unspecified asthma severity, unspecified whether complicated, [...] documented as of this encounter Care Teams Server Support Technician Relationship Specialty Start Date End Date Name, MD Beau [address] [place] [address] PCP - General Family Medicine 06/01/15 Bambi Jauregui Community Health Worker 06/27/2309/14 Mechelle Dumont RN Recreation Establishment Manager 06/27/23 09/15/23 documented as of this encounter
--- OUTSIDE RECORDS SUMMARY | 2024-12-23 18:48 | XMS_ITS | Encounter Summary ---
Author Organization [employer] Address [address] [place] [address] 7 [place] [address] Care Team Providers Care Mold Maker Apprentice Name Role Phone Name, Beau FRANKS Primary Care Provider [phone] Bambi Jauregui Unavailable Mechelle Dumont RN Unavailable Unavailable Encounter Details Date Type Department Care Team (Late st Contact Info) Description 07/02/2022 Orders Only [facility] MEDICINE [address] [place], [place] [phone] Ekaterina Pappas LPN Social History Tobacco Use [...] on filedocumented in this encounter Care Teams Mold Maker Apprentice Relationship Specialty Start Date End Date Name, MD Beau [address] [place] [address] PCP - General Family Medicine 06/01/15 Bambi Jauregui Community Health Worker 06/27/2309/14 Mechelle Dumont, ISABEL Wine Cellar Worker 06/27/23 09/15/23 documented as of this encounter
--- OUTSIDE RECORDS SUMMARY | 2024-12-23 18:48 | XMS_ITS | Encounter Summary ---
Author Organization [employer] Address [address] [place] [address] 7 [place] [address] Care Team Providers Care Web Marketing Strategist Name Role Phone Name, Beau FRANKS Primary Care Provider [phone] Reason for Visit * Reason Comments Med Refill Encounter Details Date Type Department Care Team ([facility] st Contact Info) Description 10/21/2024 Refill [facility] MEDICINE [address] [place], [place] [phone] Felecia Gunderson NP [address] [place] [address] Asthma, unspecified asthma severity, unspecified whether complicated, [...] documented as of this encounter Care Teams Web Marketing Strategist Relationship Specialty Start Date End Date Name, MD Beau [address] [place] [address] PCP - General Family Medicine 06/01/15 documented as of this encounter
--- OUTSIDE RECORDS SUMMARY | 2024-12-23 18:48 | XMS_ITS | Encounter Summary ---
Author Organization [employer] Address [address] [place] [address] 7t [place] [address] Care Team Providers Care Booster Pump Oiler Name Role Phone Name, Beau FRANKS Primary Care Provider [phone] Bambi Jauregui Unavailable Mechelle Dumont RN Unavailable Unavailable Reason for Visit * Reason Comments Med Refill Encounter Details Date Type Department Care Team ([facility] st Contact Info) Description 01/31/2023 Refill [facility] MED & PEDS [address] [place], [place] [phone] Name, MD Beau [address] [place] [address] Asthma, unspecified asthma severity, unspecified whether complicated, [...] documented as of this encounter Care Teams Booster Pump Oiler Relationship Specialty Start Date End Date Name, MD Beau [address] [place] [address] PCP - General Family Medicine 06/01/15 Bambi Jauregui Community Health Worker 06/27/2309/14 Mechelle Dumont RN Engineering Specialist Technician 06/27/23 09/15/23 documented as of this encounter
--- OUTSIDE RECORDS SUMMARY | 2024-12-23 18:48 | XMS_ITS | Encounter Summary ---
Author Organization [employer] Address [address] [place] [address] 7t [place] [address] Care Team Providers Care Research Nutritionist Name Role Phone Name, Beau FRANKS Primary Care Provider [phone] Reason for Visit * Reason Comments Med Refill Encounter Details Date Type Department Care Team ([facility] st Contact Info) Description 04/07/2024 Refill [facility] MEDICINE [address] [place], [place] [phone] Laura Russell MD [address] [place], [place] [phone] Asthma, unspecified asthma severity, unspecified whether complicated, [...] documented as of this encounter Care Teams Research Nutritionist Relationship Specialty Start Date End Date Name, MD Beau [address] [place] [address] PCP - General Family Medicine 06/01/15 documented as of this encounter
--- OUTSIDE RECORDS SUMMARY | 2024-12-23 18:48 | XMS_ITS | Encounter Summary ---
Author Organization [employer] Address [address] [place] [address] Care Team Providers Care Student Specialist Name Role Phone Name, Beau FRANKS Primary Care Provider [phone] Bambi Jauregui Unavailable Mechelle Dumont RN Unavailable Unavailable Reason for Visit * Reason Comments Med Refill Encounter Details Date Type Department Care Team (Late st Contact Info) Description 06/11/2022 Refill [facility] MEDICINE [address] [place] [phone] Name, MD Beau [address] [place] [address] Iron deficiency Social History Tobacco Use Types [...] metabolism documented in this encounter Care Teams Student Specialist Relationship Specialty Start Date End Date NameBeau MD [address] [place] [address] PCP - General Family Medicine 06/01/15 Bambi Jauregui Community Health Worker 06/27/2309/14 Mechelle Dumont, ISABEL Cattle Trader 06/27/23 09/15/23 documented as of this encounter
--- OUTSIDE RECORDS SUMMARY | 2024-12-23 18:48 | XMS_ITS | Encounter Summary ---
Author Organization [employer] Address [address] [place] [address] 7 [place] [address] Care Team Providers Care Printed Forms Proofreader Name Role Phone Name, Beau FRANKS Primary Care Provider [phone] Bambi Jauregui Unavailable Mechelle Dumont RN Unavailable Unavailable Reason for Visit * Reason Onset Date Comments PT1 11/14/2022 Encounter Details Date Type Department Care Team ([facility] st Contact Info) Description 11/14/2022 Telephone [facility] [place] MEDICINE [address] [place] [address] Name, MD Beau [address] [place] [address] PT1 Social History Tobacco Use Types Packs/Day [...] 10:01 AM EDT Allergy PT-1 Request Number [id number] is Pending Dr Salazar PT-1 Request Number [id number] is Pending Ortho PT-1 Request Number [id number] is Pending Pt has an active PT1 for [facility] * Telephone Encounter - Melva Ocampo - 11/14/2022 3:57 PM EDT PT1 Address verified Date: 11/20/22 Time: 2 pm Visits: Address: [address] [address] Facility: Allergy Injection Wheel Chair: n/a Hair Mixer Needed: no PT1 Date: 12/05/22 Time: 11:30 am Visits: Address: [address] [place] [address] Facility: Orthopedic Wheel Chair: n/a Hair Mixer Needed: no PT1 Date: 12/07/22 Time: 11:15 am Visits: Address: [address] [place] [address] Facility: PCP Wheel Chair: n/a Hair Mixer Needed: no PT1 Date: 12/07/22 Time: 2:30 pm Visits: Address: [address] [place] [address] [place] [address] Facility: Dr. Salazar Wheel Chair: n/a Hair Mixer Needed: no documented in this encounter Plan of Treatment Not on file documented as of this encounter Visit Diagnoses Not on filedocumented in this encounter Care Teams Printed Forms Proofreader Relationship Specialty Start Date End Date Name, MD Beau [address] [place] [address] PCP - General Family Medicine 06/01/15 Bambi Jauregui Community Health Worker 06/27/2309/14 Mechelle Dumont RN Senior Reactor Operator 06/27/23 09/15/23 documented as of this encounter
--- OUTSIDE RECORDS SUMMARY | 2024-12-23 18:48 | XMS_ITS | Clinical Summary ---
Author Organization [facility] Address [address] [place] [address] Phone Care Team Providers Care Commercial Roofer Name Role Phone Name, Beau FRANKS Primary Care Provider [phone] Medications albuterol (2.5 MG/3ML) 0.083% nebulizer solution [...] Colonoscopy 2019 Colorectal Cancer Screening: Sigmoidoscopy 2019 Pneumococcal Vaccine: 50+ Years (1 of 1 - PCV) 020 Influenza Vaccine (#1) 2024 Insurance Medicaid [place] Care Teams Commercial Roofer Relationship Specialty Start Date End Date Name, MD Beau [address] [place] [address] PCP - General Internal Medicine 10/05/21
--- OUTSIDE RECORDS SUMMARY | 2024-12-23 18:48 | XMS_ITS | Encounter Summary ---
Author Organization [employer] Address [address] [place] [address] 7 [place] [address] Care Team Providers Care Hand Welt Butter Name Role Phone Name, Beau FRANKS Primary Care Provider [phone] Reason for Visit * Reason Comments Med Refill Encounter Details Date Type Department Care Team ([facility] st Contact Info) Description 09/19/2023 Refill [facility] MEDICINE [address] [place], [place] [phone] Name, MD Beau [address] [place], [place] [phone] Erectile dysfunction, unspecified erectile dysfunction type Social [...] documented as of this encounter Care Teams Hand Welt Butter Relationship Specialty Start Date End Date Name, MD Beau [address] [place] [address] PCP - General Family Medicine 06/01/15 documented as of this encounter
--- OUTSIDE RECORDS SUMMARY | 2024-12-23 18:48 | XMS_ITS | Encounter Summary ---
Author Organization [employer] Address [address] [place] [address] 7 [place] [address] Care Team Providers Care Claim Technician Name Role Phone Name, Beau FRANKS Primary Care Provider [phone] Bambi Jauregui Unavailable Mechelle Dumont RN Unavailable Unavailable Reason for Visit * Reason Comments Med Refill Encounter Details Date Type Department Care Team ([facility] st Contact Info) Description 02/21/2023 Refill [facility] MEDICINE [address] [place] [address] Name, MD Beau [address] [place] [address] Chronic pain syndrome Social History Tobacco Use [...] documented as of this encounter Care Teams Claim Technician Relationship Specialty Start Date End Date Name, MD Beau [address] [place] [address] PCP - General Family Medicine 06/01/15 Bambi Jauregui Community Health Worker 06/27/2309/14 Mechelle Dumont RN Automation Consultant 06/27/23 09/15/23 documented as of this encounter
--- OUTSIDE RECORDS SUMMARY | 2024-12-23 18:48 | XMS_ITS | Encounter Summary ---
Author Organization [employer] Address [address] [place] [address] 7 [place] [address] Care Team Providers Care Granite Cutter Name Role Phone Name, Beau FRANKS Primary Care Provider [phone] Reason for Visit * Reason Comments Med Refill Encounter Details Date Type Department Care Team ([facility] st Contact Info) Description 06/02/2024 Refill [facility] MEDICINE [address] [place], [place] [phone] Name, MD Beau [address] [place] [address] Asthma, unspecified asthma severity, unspecified whether complicated, [...] documented as of this encounter Care Teams Granite Cutter Relationship Specialty Start Date End Date Name, MD Beau [address] [place] [address] PCP - General Family Medicine 06/01/15 documented as of this encounter
--- OUTSIDE RECORDS SUMMARY | 2024-12-23 18:48 | XMS_ITS | Encounter Summary ---
Author Organization [employer] Address [address] [place] [address] 7 [place] [address] Care Team Providers Care Oceanic Sciences Professor Name Role Phone Name, Beau FRANKS Primary Care Provider [phone] Reason for Visit * Reason Comments Med Refill Encounter Details Date Type Department Care Team ([facility] st Contact Info) Description 10/18/2023 Refill [facility] MEDICINE [address] [place], [place] [phone] Chiquis Harris MD [address] [place] [address] Iron deficiency Social History Tobacco Use Types [...] documented as of this encounter Care Teams Oceanic Sciences Professor Relationship Specialty Start Date End Date Name, MD Beau [address] [place] [address] PCP - General Family Medicine 06/01/15 documented as of this encounter
--- OUTSIDE RECORDS SUMMARY | 2024-12-23 18:48 | XMS_ITS | Encounter Summary ---
Author Organization [employer] Address [address] [place] [address] 7t [place] [address] Care Team Providers Care Diabetes Trainer Name Role Phone Name, Beau FRANKS Primary Care Provider [phone] Bambi Jauregui Unavailable Mechelle Dumont RN Unavailable Unavailable Encounter Details Date Type Department Care Team ([facility] st Contact Info) Description 08/06/2022 Abstract [facility] MEDICINE [address] [place], [place] [phone] Name, MD Beau [address] [place] [address] Social History Tobacco Use Types Packs/Day Years [...] PM EDT Recommended 10 year follow up ([facility]) us Historical Provider HEALTH MAINTENANCE Final Result documented in this encounter Visit Diagnoses Not on filedocumented in this encounter Care Teams Diabetes Trainer Relationship Specialty Start Date End Date Name, MD Beau [address] [place] [address] PCP - General Family Medicine 06/01/15 Bambi Jauregui Community Health Worker 06/27/2309/14 Mechelle Dumont, ISABEL Braiding Operator 06/27/23 09/15/23 documented as of this encounter
--- OUTSIDE RECORDS SUMMARY | 2024-12-23 18:48 | XMS_ITS | Encounter Summary ---
Author Organization [employer] Address [address] [place] [address] 7 [place] [address] Care Team Providers Care Planer Operator / Grader Name Role Phone Name, Beau FRANKS Primary Care Provider [phone] Reason for Visit * Reason Comments Med Refill Encounter Details Date Type Department Care Team ([facility] st Contact Info) Description 10/04/2023 Refill [facility] MEDICINE [address] [place], [place] [phone] Name, MD Beau [address] [place] [address] Social History Tobacco Use Types Packs/Day Years [...] documented as of this encounter Care Teams Planer Operator / Grader Relationship Specialty Start Date End Date Name, MD Beau [address] [place] [address] PCP - General Family Medicine 06/01/15 documented as of this encounter
--- OUTSIDE RECORDS SUMMARY | 2024-12-23 18:48 | XMS_ITS | Encounter Summary ---
Author Organization [employer] Address [address] [place] [address] 7t [place] [address] Care Team Providers Care Senior Gl Accountant Name Role Phone Name, Beau FRANKS Primary Care Provider [phone] Bambi Jauregui Unavailable Mechelle Dumont RN Unavailable Unavailable Encounter Details Date Type Department Care Team ([facility] st Contact Info) Description 04/08/2023 Orders Only [facility] [address] [place], [place] [phone] Ekaterina Pappas LPN Social History Tobacco Use [...] as of this encounter Care Teams Senior Gl Accountant Relationship Specialty Start Date End Date Name, MD Beau [address] [place] [address] PCP - General Family Medicine 06/01/15 Bambi Jauregui Community Health Worker 06/27/2309/14 Mechelle Dumont RN Assistant Account Manager 06/27/23 09/15/23 documented as of this encounter
--- OUTSIDE RECORDS SUMMARY | 2024-12-23 18:48 | XMS_ITS | Encounter Summary ---
Author Organization [employer] Address [address] [place] [address] 7 [place] [address] Care Team Providers Care Internet Marketing Intern Name Role Phone Name, Beau FRANKS Primary Care Provider [phone] Bambi Jauregui Unavailable Mechelle Dumont RN Unavailable Unavailable Encounter Details Date Type Department Care Team (Late st Contact Info) Description 03/02/2022 Orders Only [facility] MEDICINE [address] [place], [place] [phone] Lelia Moeller RN Social History Tobacco Use Types Packs/Day Years [...] on filedocumented in this encounter Care Teams Internet Marketing Intern Relationship Specialty Start Date End Date Name, MD Beau [address] [place] [address] PCP - General Family Medicine 06/01/15 Bambi Jauregui Community Health Worker 06/27/2309/14 Mechelle Dumont RN Business Unit Manager 06/27/23 09/15/23 documented as of this encounter
--- OUTSIDE RECORDS SUMMARY | 2024-12-23 18:48 | XMS_ITS | Clinical Summary ---
Author Organization [employer] Address [address] [place] [address] [address] [place] [address] Care Team Providers Care Offbearer Name Role Phone Name, Beau FRANKS Primary Care Provider [phone] Allergies Active Allergy Reactions Criticality Noted Date Comments Dulaglutide 02/26/2017 Gramineae Pollens Low 10/21/2023 Other Reaction(s): ichy eyes runny nose Medications * This document contains information received [...] 24 Active UltiCare Insulin Syringe 30G X /16 1 ML miscIndication s:Diabetes mellitus type 2 [...] INJECT FOUR TIMES DAILY 06/06/19 24 Active acetaminophen (Tylenol) 500 MG tablet Take 1 tablet (500 mg) by mouth every 6 (six) hours if needed for mild pain for up to 20 doses. 20 tablet 09/27/19 24 Active bumetanide (Bumex) 1 MG tablet Take 1 mg by mouth every other day. 09/21/19 24 Active tadalafil (Cialis) 20 MG tabletIndicati ons:Erectile dysfunction, unspecified erectile dysfunction type TAKE 1 TABLET BY MOUTH 1 HOUR BEFORE SEXUAL ACTIVITY EVERY DAY NEEDED 10 tablet 2 12/13/19 24 Active spironolactone (Aldactone) 25 MG tablet Take 1 tablet (25 mg) by mouth every other day. 01/30/20 24 025 Active Antacid Calcium 500 MG chewable tablet CHEW 1 TABLET BY MOUTH IN THE MORNING, AT NOON, IN THE EVENING, AND AT BEDTIME NEEDED FOR INDIGESTION OR HEARTBURN 90 tablet 11 05/08/19 25 Active metFORMIN (Glucophage) 1000 MG tablet TAKE 1 TABLET BY MOUTH TWICE DAILY WITH THE MORNING AND EVENING MEAL 180 tablet 06/17/19 25 Active Diclofenac Sodium 1 % gelIndications :Chronic pain syndrome APPLY 2 GRAMS TOPICALLY TO THE AFFECTED AREA FOUR TIMES DAILY NEEDED FOR BACK PAIN 100 g 1 06/30/19 25 Active Arnuity Ellipta 200 MCG/ACT inhaler INHALE 1 PUFF BY MOUTH DAILY. RINSE MOUTH WITH WATER AFTER USE FOR AFTERTASTE AND INCIDENCE OF CANDIDIASIS. DO NOT SWALLOW 30 each 07/24/19 25 Active lisinopril (Zestril) 30 MG tabletIndicati ons:GONZALEZ (dyspnea on exertion),William a, unspecified type Take 1 tablet (30 mg) by mouth Once per day. 30 tablet 09/05/19 25 026 Active ferrous sulfate (Fe Tabs) 325 (65 Fe) MG EC tablet Take 1 tablet (325 mg) by mouth with breakfast. Do not crush, chew, or split. 30 tablet 09/05/19 25 026 Active glimepiride (Amaryl) 2 MG tablet TAKE 1 TABLET BY MOUTH EVERY DAY 90 tablet 1 09/12/19 25 Active omeprazole (PriLOSEC) [address] capsule TAKE 1 CAPSULE(20 MG) BY MOUTH TWICE DAILY 180 capsule 1 09/30/19 25 Active ketoconazole (NIZOral) 2 % shampooIndicat ions:Seborrhei c dermatitis APPLY TOPICALLY 2 TIMES A WEEK 120 mL 2 10/09/19 25 Active albuterol (2.5 MG/3ML) 0.083% nebulizer solutionIndica tions:Asthma, unspecified asthma severity, unspecified whether complicated, unspecified whether persistent USE 3 ML VIA NEBULIZER EVERY MORNING AND EVERY AFTERNOON AND EVERY NIGHT AT BEDTIME 90 mL 1 10/29/19 25 Active gabapentin (Neurontin) 300 MG capsuleIndicat ions: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 (HCC) TAKE 1 CAPSULE BY MOUTH THREE TIMES DAILY 90 capsule 10/29/19 25 Active magnesium oxide (Mag-Ox) 400 MG tablet TAKE 1 TABLET BY MOUTH THREE TIMES DAILY 90 tablet 3 11/03/19 25 Active pravastatin (Pravachol) 20 MG tablet TAKE 1 TABLET BY MOUTH AT BEDTIME 90 tablet 1 12/15/19 25 Active Ventolin HFA 108 (90 Base) MCG/ACT inhalerIndicat ions:Asthma, unspecified asthma severity, unspecified whether complicated, unspecified whether persistent INHALE 2 PUFFS BY MOUTH EVERY 4 TO 6 HOURS NEEDED 18 g 1 12/15/19 25 Active pravastatin (Pravachol) 20 MG tablet TAKE 1 TABLET BY MOUTH AT BEDTIME 90 tablet 1 06/12/19 25 025 Discontinued Ventolin HFA 108 (90 Base) MCG/ACT inhalerIndicat ions:Asthma, unspecified asthma severity, unspecified whether complicated, unspecified whether persistent INHALE 2 PUFFS BY MOUTH EVERY 4 TO 6 HOURS NEEDED 18 g 1 10/29/19 25 025 Discontinued(R eorder (will not trigger notification to Pharmacy)) Active Problems Problem Noted Date Diagnosed Date Acid reflux 11/19/2024 Overview (11/19/2024): Continue to avoid culprits, PPI Acute hypoxemic respiratory failure ([facility]) Lumbar radiculopathy, chronic 11/19/2024 Cirrhosis (CMS/HCC) 11/19/2024 Overview (11/19/2024): Abstain from alcohol- Weight loss, avoid weight gain, good glucose and cholesterol control. Diabetes 11/19/2024 Edema 11/19/2024 Elevated alkaline phosphatase measurement 2024 Overview (11/19/2024): U/S Environmental allergies 11/19/2024 Erosive esophagitis 11/19/2024 Foot drop, left 11/19/2024 Gallstone pancreatitis 11/19/2024 Hand numbness 11/19/2024 Hyperlipidemia 11/19/2024 Iron deficiency anemia 11/19/2024 Lower extremity edema 11/19/2024 Major depressive disorder, severe (CMS/HCC) 10/27 Paresthesia 11/19/2024 Severe persistent allergic asthma 11/19/2024 Heart failure with preserved ejection fraction 0 11/19/2024 Depression 11/19/2024 Orthopnea 08/12/2024 Assessment & Plan (08/18/2024 1:21 PM EDT): Pt with diastolic dysfunction, in care with nephrology, Endorses worsening bloating but on history more consistent with generalized edema, I agree with renal this is likely multifactorial, reviewed nutrition, hydration and importance of daily weights, Chest x-ray ordered, Agree w renal rec to initiate metalozone Encouraged pt to follow up regarding compression stockings Close follow up with pcp Toenail avulsion 03/27/2024 Assessment & Plan (03/27/2024 12:25 PM EST): Toenail bed was cleaned with iodine swab, apply antibiotic ointment on the bed and surrounding tissue and then dressed with sterile 2x2 then covered with sterile gauze roll. Advised to keep it until Saturday when he will see acid tank liner, as much as possible, I gave him extra dressing supplies and antibiotic ointment. Td is uptodate. Advised to avoid water on to the dressing. 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 pylori) 11/06/2022 Overview (11/25/2022): Replace inactive dx Stage 3a chronic kidney disease (CKD) (CMS/HCC) 11/06/2022 Periodontal disease 07/03/2022 Dental caries 07/03/2022 Diastolic dysfunction 05/23/2021 Abnormal ECG 05/23/2021 History of cholecystectomy 03/10/2021 Obesity due to excess calories 04/05/2017 Erectile dysfunction 04/05/2017 HTN (hypertension) 09/27/2015 Obstructive sleep apnea syndrome 07/22/2013 Polyp of gallbladder 07/01/2012 Steatosis of liver 07/01/2012 Abnormal LFTs 06/17/2012 Anemia 06/17/2012 Foot pain 06/17/2012 Vitamin D deficiency 06/17/2012 Tinea pedis 11/23/2011 Lumbar post-laminectomy syndrome 09/24/2011 Asthma 08/08/2011 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 Encounters Date Type Department Care Team Description 12/12/2024 Refill [facility] [address] [place] [phone] Beau Stewart MD Asthma, unspecified asthma severity, unspecified whether complicated, unspecified whether persistent 12/11/2024 Telephone [facility] [address] [place] [phone] Beau Stewart MD Med Refill 12/08/2024 Refill [facility] [address] [place] [address] [phone] Beau Stewart MD Asthma, unspecified asthma severity, unspecified whether complicated, unspecified whether persistent 11/25/2024 Refill [facility] [address] [place] [address] [phone] Beau Stewart MD Asthma, unspecified asthma severity, unspecified whether complicated, unspecified whether persistent 11/19/2024 11:30 AM EDT Office Visit [facility] [address] [place] [phone] Beau Stewart MD Heart failure with preserved ejection fraction, unspecified HF chronicity ([facility]) (Primary Dx); Type 2 diabetes mellitus with other specified complication, with long-term current use of insulin ([facility]); Anemia, unspecified type; Depression, unspecified depression type 11/19/2024 Orders Only GENERIC EXTERNAL DATA DEPARTMENT Provider, Generic External Data 11/19/2024 Travel 11/18/2024 Telephone [facility] [address] [place] [address] [phone] Beau Stewart MD CHARTPREP 11/18/2024 Telephone [facility] [address] [place] [address] [phone] Beau Stewart MD Durable Medical Equipment 11/01/2024 Refill [facility] [address] [place] [address] [phone] Beau Stewart MD 10/28/2024 Telephone [facility] [address] [place] [address] [phone] Beau Stewart MD Med Refill 10/28/2024 Refill [facility] [address] [place] [address] [phone] Felecia Gunderson NP Asthma, unspecified asthma severity, unspecified whether complicated, unspecified whether persistent 10/27/2024 Refill [facility] [address] [place] [address] [phone] Yudy Linn NP Asthma, unspecified asthma severity, unspecified whether complicated, unspecified whether persistent; Polyneuropathy due to type 2 diabetes mellitus ([facility]) 10/27/2024 Refill [facility] [address] [place] [address] [phone] Beau Stewart MD Polyneuropathy due to type 2 diabetes mellitus ([facility]) 10/21/2024 Refill [facility] [address] [place] [address] [phone] Felecia Gunderson NP Asthma, unspecified asthma severity, unspecified whether complicated, unspecified whether persistent 10/14/2024 Orders Only GENERIC EXTERNAL DATA DEPARTMENT Provider, Generic External Data 10/14/2024 Results Follow-Up [facility] [address] [place] [address] [phone] Beau Stewart MD POCT Glucose, CBC auto differential 10/08/2024 Refill [facility] [address] [place] [address] [phone] Beau Stewart MD Seborrheic dermatitis 09/28/2024 Orders Only GENERIC EXTERNAL DATA DEPARTMENT Provider, Generic External Data 09/27/2024 Refill [facility] [address] [facility] [place] [address] Name, MD Beau 09/22/2024 Refill [facility] [address] [facility] [place] [address] Name, MD Beau Asthma, unspecified asthma severity, unspecified whether complicated, unspecified whether persistent from Last 3 Months Immunizations Immunization Administration Dates Next Due Hep A, Adult [...] Sign Reading Time Taken Comments Blood Pressure 132/58 11/19/2024 11:39 AM EDT Pulse 112 11/19/2024 11:39 AM EDT Temperature 36.3 C (97.3 F) 11/19/2024 11:39 AM EDT Respiratory Rate 14 11/19/2024 11:39 AM EDT Oxygen Saturation 97% 11/19/2024 11:39 AM EDT Inhaled Oxygen Concentration - - Weight 136 kg (299 lb 3.2 oz) 11/19/2024 11:39 A M EDT Height 167.6 cm (5' 6 ) 11/19/2024 11:39 AM EDT Body Mass Index 48.29 11/19/2024 11:39 AM EDT Plan of Treatment Health Maintenance Due Date [...] Bitewings 07/05/2023 07/03/2022 COVID-19 Vaccine ( season) 2024 02/23/2021, 06/06/2020, 05/09/2020 Influenza Vaccine (#1) 2024 11/23/2011, 2007 Alcohol/Substance Use Screening 01/28/2025 01/29/2024 SDOH Screening 01/28/2025 01/29/2024 Eye Exam 03/05/2025 03/05/2024, 10/2024, 03/05/2024, Additional history exists Diabetes: Foot Exam 03/27/2025 03/27/2024, 03/27/2024, 03/27/2024, Additional history exists Depression Monitoring 05/19/2025 11/19/2024, 025 Diabetes: Hemoglobin A1C 05/19/2025 025, 07/07/2024, 01/01/2024, Additional history exists Lipid Panel 07/07/2025 07/07/2024, 02/26, 11/28/2020, Additional history exists Disability Screening 09/04/2025 09/04/2024 Diabetes: Urine Protein Screening 10/14/2025 10/14/2024, 08/24/2024, 07/07/2024, Additional history exists Tobacco Screening 11/19/2025 11/19/2024 Dental X-Ray: Full Mouth 09/27/2026 09/27/2023, 0 [...] patient's age to complete this topic Meningococcal B Vaccine Aged Out No l onger eligible based on patient's age to complete [...] Associated Diagnosis Comments GLUCOSE, WHOLE BLOOD Routine 11/19/2024 2:14 PM EDT POCT GLYCATED HEMOGLOBIN, TOTAL Routine 11/19/2024 11:42 AM EDT Type 2 diabetes mellitus with other specified complication, with long-term current use of insulin (CMS/HCC) POCT GLUCOSE Routine 11/19/2024 11:40 AM EDT Type 2 diabetes mellitus with other specified complication, with long-term current use of insulin (CMS/HCC) PROTEIN CREATININE RATIO, URINE Routine 10/14/2024 1:50 PM EDT CBC WITH AUTO DIFFERENTIAL Routine 10/14/2024 1:50 PM EDT GONZALEZ (dyspnea on exertion) B TYPE NATRIURETIC PEPTIDE (BNP) Routine 10/14/2024 1:50 PM EDT Type 2 diabetes mellitus with other specified complication, with long-term current use of insulin (CMS/HCC) GONZALEZ (dyspnea on exertion) Edema, unspecified type Diastolic dysfunction BASIC METABOLIC PANEL Routine 10/14/2024 1:50 PM EDT Muscle cramps Abnormal serum creatinine level GLUCOSE, WHOLE BLOOD Routine 09/28/2024 2:04 PM EDT LIPID PANEL, STANDARD Routine 07/07/2024 3:17 PM EDT HEPATITIS C AB W/REFL TO HCV RNA, QN, PCR Routine 11/06/2023 3:26 PM EDT Other cirrhosis of liver (CMS/HCC) PANORAMIC RADIOGRAPHIC IMAGE Routine 09/27/2023 8:00 AM EDT INTRAORAL - COMPLETE SERIES OF RADIOGRAPHIC IMAGES Routine 07/03/2022 3:00 PM EDT PERIODIC ORAL EVALUATION - ESTABLISHED PATIENT Routine 07/03/2022 3:00 PM EDT HM COLONOSCOPY Routine 06/09/2020 2:16 PM EDT from Last 3 Months or Most Recently Relevant to Health Maintenance Results * (ABNORMAL) Glucose, Whole Blood (11/19/2024 2:14 PM EDT) Only the most recent of2 resultswithin the time period is included. Glucose, Whole Blood 267(H) 60 - 115 mg/dL [facility] Comment:METER #: [id number] Testing performed in the Endocrinology Department [address] , [address], [facility]. 11/19/2024 2:14 PM EDT 11/19/2024 2:20 PM EDT us Generic External Data Provider LAB BLOOD ORDERAB LES Final Result [facility] [address] [place] [phone] * (ABNORMAL) POCT Hgb A1c (11/19/2024 11:42 AM EDT) Hemoglobin A1C 6.7(A) 4.0 - 5.7 % QC Media Lot # [id number] Lot# Expiration Date [id number] Blood 11/19/2024 11:4 2 AM EDT Beau Stewart MD POINT OF CARE TEST ENTER/EDIT OR DERABLES Final Result * (ABNORMAL) POCT Glucose (11/19/2024 11:40 AM EDT) Glucose Blood, POC 204(A) 60 - 200 mg/dL QC Media Lot # [id number] Lot# Expiration Date 31,126 Blood Capillary blood specimen / Unknown 11/19/2024 11:40 AM EDT Beau Stewart MD POINT OF CARE TEST ENTER/EDIT OR DERABLES Final Result * Protein Creatinine Ratio, Urine (10/14/2024 1:50 PM EDT) Creatinine, Urine 37.57 mg/dL [facility] Protein, Total, Random Urine <7 <12 mg/dL [facility] Protein/Creatin ine Ratio, Ur TNP <0.2 [facility] Comment:Unable to calculate urine protein creatinine ratio due tolow creatinine or protein result. 10/14/2024 1:50 PM EDT 10/14/2024 2:23 PM EDT Generic External Data Provider LAB URINE ORDERAB LES Final Result [facility] [address] [place] [address] [phone] * (ABNORMAL) CBC auto differential (10/14/2024 1:50 PM EDT) White Blood Count 8.1 4.8 - 10.8 X10*3/uL [facility] Red Blood Count 3.99(L) 4.60 - 5.80 X10*6/uL [facility] Hemoglobin 8.7(L) 14.0 - 18.0 g/dl [facility] Hematocrit 29.1(L) 42.0 - 52.0 % [facility] Mean Corpuscular Volume 72.9(L) 80.0 - 98.0 fL [facility] Mean Corpuscular Hemoglobin 21.8(L) 27.0 - 33.0 pg [facility] Mean Corpuscular HGB Conc 29.9(L) 31.0 - 36.0 g/dl [facility] Red Cell Distribution Width 19.0(H) 11.0 - 16.0 % [facility] Platelet Count 376 160 - 400 X10*3/uL [facility] Mean Platelet Volume 8.9(L) 9.4 - 12.4 fL [facility] Neutrophils Percent Auto 75.4(H) 45 - 73 % [facility] Imm Gran Pct Auto 0.4 0.0 - 0.4 % [facility] Lymphocytes Percent Auto 18.2(L) 20 - 40 % [facility] Monocytes Percent Auto 5.8 2 - 11 % [facility] Eosinophils Percent Auto 0.0 0 - 4 % [facility] Basophils Percent Auto 0.2 0 - 2 % [facility] NRBC Pct Auto 0.0 0.0 - 0.2 /100WBC [facility] Neutrophils Absolute Auto 6.1 2.0 - 8.3 x10*3/uL [facility] Imm Gran Abs Auto 0.03 0.00 - 0.03 X10*3/uL [facility] Lymphocytes Absolute Auto 1.5 1.2 - 4.9 X10*3/uL [facility] Monocytes Absolute Auto 0.5 0.1 - 1.2 X10*3/uL [facility] Eosinophils Absolute Auto 0.0 0.0 - 0.4 X10*3/uL [facility] Basophils Absolute Auto 0.0 0.0 - 0.2 X10*3/uL [facility] NRBC Abs Auto 0.000 0.0 - 0.012 X10*3/uL [facility] Blood Venous blood specimen / Unknown 10/14/2024 1:50 PM EDT 10/14/2024 1:54 PM EDT us Beau Name LAB BLOOD ORDERABLES Final Resul t [facility] [address] [place] [address] [phone] * B Type Natriuretic Peptide (BNP) (10/14/2024 1:50 PM EDT) B Type Natriuretic Peptide 12 <100 pg/mL [facility] Blood Venous blood specimen / Unknown 10/14/2024 1:50 PM EDT 10/14/2024 1:54 PM EDT us Beau Stewart MD LAB BLOOD ORDERABLES Final Resul t Performing Organization Address [facility] Co de Phone Number [facility] [address] [place] [phone] * (ABNORMAL) Basic Metabolic Panel (10/14/2024 1:50 PM EDT) Sodium 139 135 - 145 mmol/L [facility] Potassium 3.8 3.3 - 5.1 mmol/L [facility] Chloride 102 96 - 108 mmol/L [facility] Carbon Dioxide 28 22 - 29 mmol/L [facility] Anion Gap 13 12 - 20 [facility] Urea Nitrogen (BUN) 13 9 - 16 mg/dL [facility] Creatinine, Serum 1.19 0.5 - 1.4 mg/dL [facility] Estimated Glomerular Filt Rate >60 [facility] Comment:Chronic Kidney Disea se: Estimated GFR < 60 mL/min/[id number] Kidney Disease: Estimated GFR < 15 mL/min/1.73m2 Glucose 144(H) 60 - 115 mg/dL [facility] Calcium 8.7 8.4 - 10.2 mg/dL [facility] Blood Venous blood specimen / Unknown 10/14/2024 1:50 PM EDT 10/14/2024 1:54 PM EDT us Beau Stewart MD LAB BLOOD ORDERABLES Final Resul t Performing Organization Address City/[facility] Co de Phone Number [facility] [address] [place] [phone] * (ABNORMAL) Lipid Panel, Standard (07/07/2024 3:17 PM EDT) Triglycerides 195(H) <150 mg/dL [facility] Comment:Desirable Triglyceri de: less than 150 mg/dLBorderline High Triglyceride 150-199 mg/dLHigh Triglyceride: 200-499 mg/dLVery High Triglyceride: greater than or equal to 5OO mg/dL Cholesterol 128 <200 mg/dL [facility] Comment:Desirable Cholestero l: less than 200 mg/dLBorderline High Cholesterol: 200-239 mg/dLHigh Cholesterol: greater than 239 mg/dL LDL Cholesterol Calculated 53 <100 mg/dL [facility] Comment:Desirable LDL: less than 100 mg/dLNear Optimal/Above Optimal LDL: 110- 129 mg/dLBorderline High LDL: 130-159 mg/dLHigh LDL: 160-189 mg/dLVery High LDL: greater than or equal to 190 mg/dL HDL Cholesterol 36(L) >40 mg/dL [facility] Comment:Desirable HDL: great er than 40 mg/dL Note: This HDL assay may give artificially low results in patients with liver disease. 07/07/2024 3:17 PM EDT 07/07/2024 3:17 PM EDT us Generic External Data Provider LAB BLOOD ORDERAB LES Final Result Performing Organization Address City/[facility]/ZIP Co de Phone Number [facility] [address] [place] [phone] * Hepatitis C Antibody with Reflex to HCV, RNA, Quantitative, Real-Time PCR (11/06/2023 3:26 PM EDT) Hepatitis C Antibody Nonreactive Nonreactive [facility] Comment:Antibodies to HCV no t detected; does not exclude early acuteHCV infection. Blood Venous blood specimen / Unknown 11/06/2023 3:26 PM EDT 11/06/2023 3:58 PM EDT Beau Stewart MD LAB BLOOD ORDERABLES Final Resul t [facility] [address] [place] [phone] * Hm Colonoscopy (06/09/2020 2:16 PM EDT) Colonoscopy Normal Normal Narrative Radha Aviles - 06/09/2020 2:16 PM EDT Recommended 10 year follow up ([facility] us Historical Provider MD HEALTH MAINTENANCE Final Result from Last 3 Months or Most Recently Relevant to Health Maintenance Insurance [facility] C3 DENTAL-[facility] MEDICAID STAND ADULT Care Teams Offbearer Relationship Specialty Start Date End Date Name, MD Beau [address] [place] [phone] PCP - General Family Medicine 06/01/15
--- OUTSIDE RECORDS SUMMARY | 2024-12-23 18:48 | XMS_ITS | Encounter Summary ---
Author Organization [employer] Address [address] [place] [address] [address] [place] [address] Care Team Providers Care Room Inspector Name Role Phone Name, Beau FRANKS Primary Care Provider [phone] Reason for Visit * Reason Comments Med Refill Encounter Details Date Type Department Care Team ([facility] st Contact Info) Description 11/25/2024 Refill [facility] [address] [place], [place] [phone] Name, MD Beau [address] [place] [address] Asthma, unspecified asthma severity, unspecified whether complicated, [...] documented as of this encounter Care Teams Room Inspector Relationship Specialty Start Date End Date Name, MD Beau [address] [place] [address] PCP - General Family Medicine 06/01/15 documented as of this encounter
--- OUTSIDE RECORDS SUMMARY | 2024-12-23 18:48 | XMS_ITS | Encounter Summary ---
Author Organization [employer] Address [address] [place] [address] [address] [place] [address] Care Team Providers Care Studio Potter Name Role Phone Name, Beau FRANKS Primary Care Provider [phone] Reason for Visit * Reason Comments Med Refill Encounter Details Date Type Department Care Team ([facility] st Contact Info) Description 12/12/2024 Refill [facility] [address] [place], [place] [phone] Name, MD Beau [address] [place] [address] Asthma, unspecified asthma severity, unspecified whether complicated, [...] documented as of this encounter Care Teams Studio Potter Relationship Specialty Start Date End Date Name, MD Beau [address] [place] [address] PCP - General Family Medicine 06/01/15 documented as of this encounter
== END 2024-12-23 15:04 | disposition home or self-care (01) ==
LOC: HO.HCS 14:27
PROVIDERS: PCP Internal Medicine Geriatric Medicine; Visit Provider Internal Medicine Cardiovascular Disease
DX: I10 Essential (primary) hypertension (principal); R06.00 Dyspnea, unspecified; I50.30 Unspecified diastolic (congestive) heart failure
CPT/HCPCS: 93010; 99204

== ENCOUNTER → 2024-12-23 14:27 | Outpatient (BNVA) | payer MEDICAID, SELFPAY | PROVIDERS: PCP Internal Medicine Geriatric Medicine; Visit Provider Internal Medicine Cardiovascular Disease | DX: R06.00 Dyspnea, unspecified (principal); I11.0 Hypertensive heart disease with heart failure; I50.30 Unspecified diastolic (congestive) heart failure | CPT/HCPCS: 93005; 99202 ==

== ENCOUNTER 2024-12-25 13:55 | Outpatient (AMB) | payer MEDICAID, SELFPAY ==
--- NOTE | 2024-12-25 14:00 | HO.NEPHOV_ITS ---
Vital Signs 12/25/24 14:01 Height 5 ft 6 in Weight 298 lb 4 oz BMI 48.1 BP 122/70 Blood Pressure Location Lt brachial Position Sitting Pulse 115 H Pulse Source Pulse Oximeter Pulse Oximetry (%) 96 Oxygen Delivery Method Room Air Intake Visit Reasons: 2mon f/u w/labs-Mailbox Full Mold Closer Helper Required: No Accompanied by: Self / Same As Patient Allergies mold Allergy (Unknown, Verified 12/25/24 14:01) Difficulty Breathing pollen extracts Allergy (Verified 12/25/24 14:) Unknown HPI Comments Details: Manjit was seen in follow up for management of his edema and CKD 3 as well as hypertension. He has a BMI of 49 with hypertension, diabetes as well as sleep apnea among other medical issues. His serum albumin is ok and Pro BNP is normal. He is not known to have any proteinuria. His Echocardiogram has been good. He denies excess sodium in the diet. His urine output is good. He claims to be compliant with his CPAP. He denies any chest pain but has been having worsening shortness of breath, weight gain and PND. He uses CPAP. He denies taking excessive nonsteroidal anti-inflammatories. He has been having lower extremity swelling [facility] Medical History (Updated 12/23/24 @ 15:01 by Nick Benavides MD) Dyspnea on exertion Edema HTN (hypertension) Type 2 diabetes mellitus with diabetic polyneuropathy Iron deficiency anemia Cirrhosis Severe persistent allergic asthma Foot drop, left Lumbar radiculopathy, chronic Abnormal ECG Obesity due to excess calories Hx of pancreatitis Acid reflux Elevated alkaline phosphatase measurement Asthma MAURIZIO on CPAP Morbid obesity Degeneration of L4-L5 intervertebral disc Diabetes Anemia Apnea, sleep Obstructive sleep apnea Surgical History Hx of cholecystectomy History of back surgery Family History (Updated 12/23/24 @ 14:37 by Namita Cobb CMA) Father Diabetes Hearing loss Mother CVD (cardiovascular disease) Thyroid condition Paternal Grandmother Diabetes High blood pressure Paternal Aunt Diabetes High blood pressure Sister No problems noted. Sister No problems noted. 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 Review of Systems Const All systems reviewed & are unremarkable except as noted in HPI and below Physical Exam Const General: comfortable and no acute distress Orientation/consciousness: patient oriented x3 HEENT Head: Yes normocephalic Mouth: Normal oral and palatal mucosa present Eyes EOM: EOMs intact bilaterally Neck Neck: Yes supple Resp Auscultation: clear to auscultation bilaterally Cardio Jugular venous distension: no JVD Rate: regular rate GI Palpation (GI): Soft to palpation Auscultation: normal bowel sounds General: Yes no CVA tenderness Back/Spine/Pelvis Back: no CVA tenderness Skin General skin exam: no rashes or lesions noted Neuro General: patient oriented x3 and moves all extremities Extrem General: Yes edema Results Reviewed Nephrology Results: Hgb, (14.0-18.0) 9.9 g/dl L 12/08/24 WBC, (4.8-10.8) 7.7 X10*3/uL 12/08/24 Plt Count, (160-400) 263 X10*3/uL 12/08/24 Sodium, (135-145) 137 mmol/L 11/03/24 Potassium, (3.3-5.1) 4.1 mmol/L 11/03/24 Chloride, (96-108) 104 mmol/L 11/03/24 Carbon Dioxide, (22-29) 25 mmol/L 11/03/24 BUN, (9-16) 15 mg/dL 11/03/24 Creatinine, (0.5-1.4) 1.49 mg/dL H 11/03/24 Calcium, (8.4-10.2) 8.3 mg/dL L 11/03/24 Assessment & Plan Assessment & Plan (1) HTN (hypertension): Code(s): I10 - Essential (primary) hypertension Category: Medical Qualifiers: Hypertension type: primary hypertension Qualified Code(s): I10 - Essential (primary) hypertension (2) CKD stage 3a, GFR 45-59 ml/min: Code(s): N18.31 - Chronic kidney disease, stage 3a Category: Medical Plan Manjit has edema most likely due to multifactorial etiology. His last Echocardiogram was OK. He is not known to have any proteinuria. His last serum albumin was 3.8. His Pro BNP had been normal. I reviewed his abdominal USS. His iron studies have been fine. He is on spironolactone. He can C/W bumetanide 2 mg twice daily.His uric acid is high. He is on Allopurinol 100 mg daily. He on Jardiance. He needs to see a Liver specialist. He should minimize sodium in the diet and should get medical help to lose weight. He should avoid nonsteroidal anti-inflammatories. Answered all questions Orders: Orders Blood Urea Nitrogen 2 Months I10 - Essential (primary) hypertension, N18.31 - Chronic kidney disease, stage 3a Creatinine 2 Months I10 - Essential (primary) hypertension, N18.31 - Chronic kidney disease, stage 3a Protein Creatinine Ratio, Ur 2 Months I10 - Essential (primary) hypertension, N18.31 - Chronic kidney disease, stage 3a Electrolytes 2 Months I10 - Essential (primary) hypertension, N18.31 - Chronic kidney disease, stage 3a Coding Level of Care Code Est Pt Level 4 (33016) Diagnoses Primary hypertension I10 Hypertension type: primary hypertension CKD stage 3a, GFR 45-59 ml/min N18.31
[2024-12-25 14:01] VITALS: BP 122/70; PULSE 115; O2SAT 96; BMI 48.1
--- OUTSIDE RECORDS SUMMARY | 2024-12-25 14:48 | XMS_ITS | Encounter Summary ---
Author Organization [employer] Address [address] [place] [address] Care Team Providers Care Application Consultant Name Role Phone Name, Beau FRANKS Primary Care Provider [phone] Bambi Jauregui Unavailable Mechelle Dumont RN Unavailable Unavailable Reason for Visit * Reason Comments Med Refill Encounter Details Date Type Department Care Team (Late st Contact Info) Description 06/11/2022 Refill [facility] MEDICINE [address] [place] [address] Name, MD Beau [address] [place] [address] Iron deficiency Social History Tobacco Use Types [...] metabolism documented in this encounter Care Teams Application Consultant Relationship Specialty Start Date End Date NameBeau MD [address] [place] [address] PCP - General Family Medicine 06/01/15 Bambi Jauregui Community Health Worker 06/27/2309/14 Mechelle Dumont, ISABEL Pivot Maker 06/27/23 09/15/23 documented as of this encounter
--- OUTSIDE RECORDS SUMMARY | 2024-12-25 14:48 | XMS_ITS | Encounter Summary ---
Author Organization [employer] Address [address] [place] [address] [place] [address] Care Team Providers Care Costume Shop Coordinator Name Role Phone NameBeau MD Primary Care Provider [phone] Bambi Jauregui Unavailable Mechelle Dumont RN Unavailable Unavailable Reason for Visit * Reason Comments Med Refill Encounter Details Date Type Department Care Team (Late st Contact Info) Description 05/28/2022 Refill [facility] MEDICINE [address] [place] [address] NameBeau MD [address] [place] [address] Asthma, unspecified asthma severity, unspecified whether complicated, [...] persistent documented in this encounter Care Teams Costume Shop Coordinator Relationship Specialty Start Date End Date NameBeau MD [address] [place] [address] PCP - General Family Medicine 06/01/15 Bambi Jauregui Community Health Worker 06/27/2309/14 Mechelle Dumont RN Jewel Setter 06/27/23 09/15/23 documented as of this encounter
--- OUTSIDE RECORDS SUMMARY | 2024-12-25 14:48 | XMS_ITS | Clinical Summary ---
Author Organization [facility] Address [address] [place] [address] [place] [address] Phone Care Team Providers Care Grades 1 Through 6 Teacher Name Role Phone Name, Beau FRANKS Primary Care Provider [phone] Medications albuterol (2.5 MG/3ML) 0.083% nebulizer solution [...] Insurance Medicaid [place] Care Teams Grades 1 Through 6 Teacher Relationship Specialty Start Date End Date Name, MD Beau [address] [place] [address] PCP - General Internal Medicine 10/05/21
--- OUTSIDE RECORDS SUMMARY | 2024-12-25 14:48 | XMS_ITS | Encounter Summary ---
Author Organization [employer] Address [address] [place] [address] [place] [address] Care Team Providers Care Food Services Coordinator Name Role Phone NameBeau MD Primary Care Provider [phone] Bambi Jauregui Unavailable Mechelle Dumont RN Unavailable Unavailable Reason for Visit * Reason Comments Med Refill Encounter Details Date Type Department Care Team (Late st Contact Info) Description 06/08/2022 Refill [facility] MEDICINE [address] [place] [address] NameBeau MD [address] [place] [address] Asthma, unspecified asthma severity, unspecified whether complicated, [...] persistent documented in this encounter Care Teams Food Services Coordinator Relationship Specialty Start Date End Date NameBeau MD [address] [place] [address] PCP - General Family Medicine 06/01/15 Bambi Jauregui Community Health Worker 06/27/2309/14 Mechelle Dumont RN Medical Transport Specialist 06/27/23 09/15/23 documented as of this encounter
--- OUTSIDE RECORDS SUMMARY | 2024-12-25 14:48 | XMS_ITS | Encounter Summary ---
Author Organization [employer] Address [address] [place] [address] 7t [place] [address] Care Team Providers Care Sales Marketing Coordinator Name Role Phone Name, Beau FRANKS Primary Care Provider [phone] Reason for Visit * Reason Comments Med Refill Encounter Details Date Type Department Care Team ([facility] st Contact Info) Description 04/07/2024 Refill [facility] MEDICINE [address] [place], [place] [phone] Laura Russell MD [address] [place], [place] [phone] Asthma, unspecified asthma severity, unspecified whether complicated, [...] documented as of this encounter Care Teams Sales Marketing Coordinator Relationship Specialty Start Date End Date Name, MD Beau [address] [place] [address] PCP - General Family Medicine 06/01/15 documented as of this encounter
--- OUTSIDE RECORDS SUMMARY | 2024-12-25 14:49 | XMS_ITS | Encounter Summary ---
Author Organization [employer] Address [address] [place] [address] 7 [place] [address] Care Team Providers Care Continuous Process Machine Operator Name Role Phone Name, Beau FRANKS Primary Care Provider [phone] Bambi Jauregui Unavailable Mechelle Dumont RN Unavailable Unavailable Reason for Visit * Reason Onset Date Comments PT1 11/14/2022 Encounter Details Date Type Department Care Team ([facility] st Contact Info) Description 11/14/2022 Telephone [facility] MEDICINE 230 [place] [address] Name, MD Beau [address] [place] [address] PT1 Social History Tobacco Use Types Packs/Day [...] 10:01 AM EDT Allergy PT-1 Request Number [id number] is Pending Dr Salazar PT-1 Request Number [id number] is Pending Ortho PT-1 Request Number [id number] is Pending Pt has an active PT1 for [facility] * Telephone Encounter - Melva Ocampo - 11/14/2022 3:57 PM EDT PT1 Address verified Date: 11/20/22 Time: 2 pm Visits: Address: [address] [place] [address] Facility: Allergy Injection Wheel Chair: n/a [employer] Aircrew[employer] Needed: no PT1 Date: 12/05/22 Time: 11:30 am Visits: Address: [address] [place] [address] Facility: Orthopedic Wheel Chair: n/a [employer] Aircrewman Needed: no PT1 Date: 12/07/22 Time: 11:15 am Visits: Address: [address] [place] [address] Facility: PCP Wheel Chair: n/a [employer] Aircrewman Needed: no PT1 Date: 12/07/22 Time: 2:30 pm Visits: Address: [address] [place] [address] [place] [address] Facility: Dr. Salazar Wheel Chair: n/a [employer] Aircrewman Needed: no documented in this encounter Plan of Treatment Not on file documented as of this encounter Visit Diagnoses Not on filedocumented in this encounter Care Teams Continuous Process Machine Operator Relationship Specialty Start Date End Date Name, MD Beau [address] [place] [address] PCP - General Family Medicine 06/01/15 Bambi Jauregui Community Health Worker 06/27/2309/14 Mechelle Dumont RN Process Mechanic 06/27/23 09/15/23 documented as of this encounter
--- OUTSIDE RECORDS SUMMARY | 2024-12-25 14:49 | XMS_ITS | Encounter Summary ---
Author Organization [employer] Address [address] [place] [address] 7 [place] [address] Care Team Providers Care Parts Administrator Name Role Phone Name, Beau FRANKS Primary Care Provider [phone] Reason for Visit * Reason Onset Date Comments Med Refill 10/04/2023 Encounter Details Date Type Department Care Team (Late st Contact Info) Description 10/04/2023 Telephone [facility] MEDICINE 230 [place], [place] [phone] Name, MD Beau [address] [place] [address] Med Refill Social History Tobacco Use Types [...] MG EC tablet To be sent to: [id number] [place], [place] - [address] [facility] documented in this encounter Plan of Treatment Not on file documented as of this encounter Visit Diagnoses Not on filedocumented in this encounter Additional Health Concerns Assessment Noted Time PHQ-9 Depression Total Score: 19 023 3:46 PM EDT documented as of this encounter Care Teams Parts Administrator Relationship Specialty Start Date End Date Name, MD Beau [address] [place] [address] PCP - General Family Medicine 06/01/15 documented as of this encounter
--- OUTSIDE RECORDS SUMMARY | 2024-12-25 14:49 | XMS_ITS | Encounter Summary ---
Author Organization [employer] Address [address] [place] [address] 7 [place] [address] Care Team Providers Care Quarrying Specialist Name Role Phone Name, Beau FRANKS Primary Care Provider [phone] Reason for Visit * Reason Comments Med Refill Encounter Details Date Type Department Care Team ([facility] st Contact Info) Description 06/02/2024 Refill [facility] MEDICINE 230 [place], [place] [phone] Name, MD Beau [address] [place] [address] Asthma, unspecified asthma severity, unspecified whether complicated, [...] documented as of this encounter Care Teams Quarrying Specialist Relationship Specialty Start Date End Date Name, MD Beau [address] [place] [address] PCP - General Family Medicine 06/01/15 documented as of this encounter
--- OUTSIDE RECORDS SUMMARY | 2024-12-25 14:49 | XMS_ITS | Encounter Summary ---
Author Organization [employer] Address [address] [place] [address] 7 [place] [address] Care Team Providers Care Waste Collection Driver Name Role Phone Name, Beau FRANKS Primary Care Provider [phone] Reason for Visit * Reason Comments Med Refill Encounter Details Date Type Department Care Team ([facility] st Contact Info) Description 09/19/2023 Refill [facility] MEDICINE 230 [place], [place] [phone] Name, MD Beau [address] [place], [place] [phone] Erectile dysfunction, unspecified erectile dysfunction type Social [...] documented as of this encounter Care Teams Waste Collection Driver Relationship Specialty Start Date End Date Name, MD Beau [address] [place] [address] PCP - General Family Medicine 06/01/15 documented as of this encounter
--- OUTSIDE RECORDS SUMMARY | 2024-12-25 14:49 | XMS_ITS | Encounter Summary ---
Author Organization [employer] Address [address] [place] [address] 7 [place] [address] Care Team Providers Care Field Map Technician Name Role Phone Name, Beau FRANKS Primary Care Provider [phone] Bambi Jauregui Unavailable Mcehelle Dumont RN Unavailable Unavailable Reason for Visit * Reason Onset Date Comments Med Refill 08/21/2022 Encounter Details Date Type Department Care Team ([facility] st Contact Info) Description 08/21/2022 Telephone [facility] MEDICINE [address] [place] [address] Name, MD Beau [address] [place] [address] Med Refill Social History Tobacco Use Types [...] on filedocumented in this encounter Care Teams Field Map Technician Relationship Specialty Start Date End Date Name, MD Beau [address] [place] [address] PCP - General Family Medicine 06/01/15 Bambi Jauregui Community Health Worker 06/27/2309/14 Mechelle Dumont RN Beadworker 06/27/23 09/15/23 documented as of this encounter
--- OUTSIDE RECORDS SUMMARY | 2024-12-25 14:49 | XMS_ITS | Encounter Summary ---
Author Organization [employer] Address [address] [place] [address] 7 [place] [address] Care Team Providers Care Dance Entertainer Name Role Phone Name, Beau FRANKS Primary Care Provider [phone] Bambi Jauregui Unavailable Mechelle Dumont RN Unavailable Unavailable Encounter Details Date Type Department Care Team (Late st Contact Info) Description 03/02/2022 Orders Only [facility] MEDICINE 230 [place], [place] [phone] Lelia Moeller RN Social History Tobacco Use [...] on filedocumented in this encounter Care Teams Dance Entertainer Relationship Specialty Start Date End Date Name, MD Beau [address] [place] [address] PCP - General Family Medicine 06/01/15 Bambi Jauregui Community Health Worker 06/27/2309/14 Mechelle Dumont RN Plumber Supervisor 06/27/23 09/15/23 documented as of this encounter
--- OUTSIDE RECORDS SUMMARY | 2024-12-25 14:49 | XMS_ITS | Encounter Summary ---
Author Organization [email or web address] Address [address] [place] [address] 7 [place] [address] Care Team Providers Care Voice Network Engineer Name Role Phone Name, Beau FRANKS Primary Care Provider [phone] Bambi Jauregui Unavailable Mechelle Dumont RN Unavailable Unavailable Reason for Visit * Reason Comments Med Refill Encounter Details Date Type Department Care Team ([facility] st Contact Info) Description 06/10/2023 Refill [facility] MEDICINE [address] [place] [address] Name, MD Beau [address] [place] [address] Asthma, unspecified asthma severity, unspecified whether complicated, [...] documented as of this encounter Care Teams Voice Network Engineer Relationship Specialty Start Date End Date Name, MD Beau [address] [place] [address] PCP - General Family Medicine 06/01/15 Bambi Jauregui Community Health Worker 06/27/2309/14 Mechelle Dumont RN Prevention Rn 06/27/23 09/15/23 documented as of this encounter
--- OUTSIDE RECORDS SUMMARY | 2024-12-25 14:49 | XMS_ITS | Encounter Summary ---
Author Organization [employer] Address [address] [place] [address] 7 [place] [address] Care Team Providers Care Bath Tester Name Role Phone Name, Beau FRANKS Primary Care Provider [phone] Bambi Jauregui Unavailable Mechelle Dumont RN Unavailable Unavailable Reason for Visit * Reason Comments Med Refill Encounter Details Date Type Department Care Team ([facility] st Contact Info) Description 06/13/2023 Refill [facility] MEDICINE [address] [place] [address] Name, MD Beau [address] [place] [address] Asthma, unspecified asthma severity, unspecified whether complicated, [...] documented as of this encounter Care Teams Bath Tester Relationship Specialty Start Date End Date Name, MD Beau [address] [place] [address] PCP - General Family Medicine 06/01/15 Bambi Jauregui Community Health Worker 06/27/2309/14 Mechelle Dumont RN Painter Interior Finish 06/27/23 09/15/23 documented as of this encounter
--- OUTSIDE RECORDS SUMMARY | 2024-12-25 14:49 | XMS_ITS | Encounter Summary ---
Author Organization [employer] Address [address] [place] [address] 7 [place] [address] Care Team Providers Care Geoscientist Name Role Phone Name, Beau FRANKS Primary Care Provider [phone] Bambi Jauregui Unavailable Mechelle Dumont RN Unavailable Unavailable Encounter Details Date Type Department Care Team (Late st Contact Info) Description 03/07/2022 Orders Only [facility] MEDICINE 230 [place], [place] [phone] Ekaterina Pappas LPN Social History Tobacco Use [...] on filedocumented in this encounter Care Teams Geoscientist Relationship Specialty Start Date End Date Name, MD Beau [address] [place] [address] PCP - General Family Medicine 06/01/15 Bambi Jauregui Community Health Worker 06/27/2309/14 Mechelle Dumont RN Joinery Setter Out 06/27/23 09/15/23 documented as of this encounter
--- OUTSIDE RECORDS SUMMARY | 2024-12-25 14:49 | XMS_ITS | Encounter Summary ---
Author Organization [employer] Address [address] [place] [address] 7 [place] [address] Care Team Providers Care Power House Control Room Operator Name Role Phone Name, Beau FRANKS Primary Care Provider [phone] Bambi Jauregui Unavailable Mechelle Dumont RN Unavailable Unavailable Encounter Details Date Type Department Care Team (Late st Contact Info) Description 07/02/2022 Orders Only [facility] MEDICINE 230 [place], [place] [phone] Ekaterina Pappas LPN Social History Tobacco Use [...] on filedocumented in this encounter Care Teams Power House Control Room Operator Relationship Specialty Start Date End Date Name, MD Beau [address] [place] [address] PCP - General Family Medicine 06/01/15 Bambi Jauregui Community Health Worker 06/27/2309/14 Mechelle Dumont, ISABEL Cellular Equipment Installer 06/27/23 09/15/23 documented as of this encounter
--- OUTSIDE RECORDS SUMMARY | 2024-12-25 14:49 | XMS_ITS | Encounter Summary ---
Author Organization [employer] Address [address] [place] [address] 7 [place] [address] Care Team Providers Care Billboard Poster Name Role Phone Name, Beau FRANKS Primary Care Provider [phone] Reason for Visit * Reason Comments Med Refill Encounter Details Date Type Department Care Team ([facility] st Contact Info) Description 10/04/2023 Refill [facility] MEDICINE 230 [place], [place] [phone] Name, MD Beau [address] [place] [address] Social History Tobacco Use Types Packs/Day Years [...] documented as of this encounter Care Teams Billboard Poster Relationship Specialty Start Date End Date Name, MD Beau [address] [place] [address] PCP - General Family Medicine 06/01/15 documented as of this encounter
--- OUTSIDE RECORDS SUMMARY | 2024-12-25 14:49 | XMS_ITS | Encounter Summary ---
Author Organization [employer] Address [address] [place] [address] 7t [place] [address] Care Team Providers Care Steamboat Pilot Name Role Phone Name, Beau FRANKS Primary Care Provider [phone] Bambi Jauregui Unavailable Mechelle Dumont RN Unavailable Unavailable Reason for Visit * Reason Comments Med Refill Encounter Details Date Type Department Care Team ([facility] st Contact Info) Description 01/31/2023 Refill [facility] [address] [place], [place] [phone] Name, MD Beau [address] [place] [address] Asthma, unspecified asthma severity, unspecified whether complicated, [...] documented as of this encounter Care Teams Steamboat Pilot Relationship Specialty Start Date End Date Name, MD Beau [address] [place] [address] PCP - General Family Medicine 06/01/15 Bambi Jauregui Community Health Worker 06/27/2309/14 Mechelle Dumont RN Air Conditioning Unit Tester 06/27/23 09/15/23 documented as of this encounter
--- OUTSIDE RECORDS SUMMARY | 2024-12-25 14:49 | XMS_ITS | Encounter Summary ---
Author Organization [employer] Address [address] [place] [address] 7 [place] [address] Care Team Providers Care Guest Services Agent Name Role Phone Name, Beau FRANKS Primary Care Provider [phone] Reason for Visit * Reason Comments Med Refill Encounter Details Date Type Department Care Team ([facility] st Contact Info) Description 10/18/2023 Refill [facility] [address] [place], [place] [phone] Chiquis Harris MD 230 [place] [address] Iron deficiency Social History Tobacco Use Types [...] documented as of this encounter Care Teams Guest Services Agent Relationship Specialty Start Date End Date Name, MD Beau [address] [place] [phone] PCP - General Family Medicine 06/01/15 documented as of this encounter
--- OUTSIDE RECORDS SUMMARY | 2024-12-25 14:49 | XMS_ITS | Encounter Summary ---
Author Organization [employer] Address [address] [place] [address] 7 [place] [address] Care Team Providers Care Ethylbenzene Converter Helper Name Role Phone Name, Beau FRANKS Primary Care Provider [phone] Reason for Visit * Reason Onset Date Comments Med Refill 12/11/2024 Encounter Details Date Type Department Care Team ([facility] st Contact Info) Description 12/11/2024 Telephone [facility] 230 [place], [place] [phone] Name, MD Beau 230 [place] [address] Med Refill Social History Tobacco Use Types [...] Base) MCG/ACT inhaler To be sent to: [id number] - [address] [place] [address] Requesting more refills on script documented in this encounter Plan of Treatment Not on file documented as of this encounter Visit Diagnoses Not on filedocumented in this encounter Additional Health Concerns Assessment Noted Time PHQ-9 Depression Total Score: 25 025 11:48 AM EDT documented as of this encounter Care Teams Ethylbenzene Converter Helper Relationship Specialty Start Date End Date Name, MD Beau 230 [place] [id number] PCP - General Family Medicine 06/01/15 documented as of this encounter
--- OUTSIDE RECORDS SUMMARY | 2024-12-25 14:49 | XMS_ITS | Encounter Summary ---
Author Organization [employer] Address [address] [place] [address] 7 [place] [address] Care Team Providers Care Repairer Cylinder Heads Name Role Phone Name, Beau FRANKS Primary Care Provider [phone] Reason for Visit * Reason Comments Med Refill Encounter Details Date Type Department Care Team ([facility] st Contact Info) Description 10/21/2024 Refill [facility] 230 [place], [place] [phone] Felecia Gunderson NP 230 [place] [address] Asthma, unspecified asthma severity, unspecified whether complicated, [...] documented as of this encounter Care Teams Repairer Cylinder Heads Relationship Specialty Start Date End Date Name, MD Beau 230 [place] [address] PCP - General Family Medicine 06/01/15 documented as of this encounter
--- OUTSIDE RECORDS SUMMARY | 2024-12-25 14:49 | XMS_ITS | Encounter Summary ---
Author Organization [employer] Address [address] [place] [address] 7 [place] [address] Care Team Providers Care Kitchen Porter Name Role Phone Name, Beau FRANKS Primary Care Provider [phone] Reason for Visit * Reason Comments Med Refill Encounter Details Date Type Department Care Team ([facility] st Contact Info) Description 12/12/2024 Refill [facility]INE 230 [place], [place] [phone] Name, MD Beau 230 [place] [address] Asthma, unspecified asthma severity, unspecified whether complicated, [...] documented as of this encounter Care Teams Kitchen Porter Relationship Specialty Start Date End Date Name, MD Beau 230 [place] [address] PCP - General Family Medicine 06/01/15 documented as of this encounter
--- OUTSIDE RECORDS SUMMARY | 2024-12-25 14:49 | XMS_ITS | Encounter Summary ---
Author Organization [employer] Address [address] [place] [address] 7t [place] [address] Care Team Providers Care Shoe Handler Name Role Phone Name, Beau FRANKS Primary Care Provider Bambi Jauregui Unavailable Mechelle Dumont RN Unavailable Unavailable Encounter Details Date Type Department Care Team ([facility] st Contact Info) Description 08/06/2022 Abstract [facility] MEDICINE 230 [place], [place] [phone] Name, MD Beau 230 [place] [address] Social History Tobacco Use Types Packs/Day Years [...] on filedocumented in this encounter Care Teams Shoe Handler Relationship Specialty Start Date End Date Name, MD Beau [address] [place] [address] PCP - General Family Medicine 06/01/15 Bambi Jauregui Community Health Worker 06/27/2309/14 Mechelle Dumont, ISABEL Fish Header 06/27/23 09/15/23 documented as of this encounter
--- OUTSIDE RECORDS SUMMARY | 2024-12-25 14:49 | XMS_ITS | Encounter Summary ---
Author Organization [employer] Address [address] [place] [address] 7t [place] [address] Care Team Providers Care Global Mobility Specialist Name Role Phone Name, Beau FRANKS Primary Care Provider [phone] Bambi Jauregui Unavailable Mechelle Dumont RN Unavailable Unavailable Encounter Details Date Type Department Care Team ([facility] st Contact Info) Description 04/08/2023 Orders Only [facility] MED & PEDS [address] [place], [place] [phone] Ekaterina Pappas LPN Social History Tobacco Use [...] documented as of this encounter Care Teams Global Mobility Specialist Relationship Specialty Start Date End Date Name, MD Beau 230 [place] [address] PCP - General Family Medicine 06/01/15 Bambi Jauregui Community Health Worker 06/27/2309/14 Mechelle Dumont RN Fig Bar Machine Operator 06/27/23 09/15/23 documented as of this encounter
--- OUTSIDE RECORDS SUMMARY | 2024-12-25 14:49 | XMS_ITS | Encounter Summary ---
Author Organization [employer] Address [address] [place] [address] [address] [place] [address] Care Team Providers Care Safe Deposit Box Rental Clerk Name Role Phone Name, Beau FRANKS Primary Care Provider [phone] Bambi Jauregui Unavailable Mechelle Dumont RN Unavailable Unavailable Reason for Visit * Reason Comments Med Refill Encounter Details Date Type Department Care Team ([facility] st Contact Info) Description 02/21/2023 Refill [facility] MED[facility]INE 230 [place] [address] Name, MD Beau 230 [place] [address] Chronic pain syndrome Social History Tobacco Use [...] documented as of this encounter Care Teams Safe Deposit Box Rental Clerk Relationship Specialty Start Date End Date Name, MD Beau [address] [place] [address] PCP - General Family Medicine 06/01/15 Bambi Jauregui Community Health Worker 06/27/2309/14 Mechelle Dumont RN Component Engineer 06/27/23 09/15/23 documented as of this encounter
--- OUTSIDE RECORDS SUMMARY | 2024-12-25 14:49 | XMS_ITS | Encounter Summary ---
Author Organization [employer] Address [address] [place] [address] 7 [place] [address] Care Team Providers Care Patient Access Director Name Role Phone Name, Beau FRANKS Primary Care Provider [phone] Bambi Jauregui Unavailable Mechelle Dumont RN Unavailable Unavailable Encounter Details Date Type Department Care Team ([facility] st Contact Info) Description 03/26/2022 Orders Only [facility] CHC MED & PEDS [address] [place], [place] [phone] Kindra Woodall LPN Social History Tobacco Use [...] on filedocumented in this encounter Care Teams Patient Access Director Relationship Specialty Start Date End Date Name, MD Beau [address] [place] [address] PCP - General Family Medicine 06/01/15 Bambi Jauregui Community Health Worker 06/27/2309/14 Mechelle Dumont, ISABEL Hearing Aid Assembly Supervisor 06/27/23 09/15/23 documented as of this encounter
--- OUTSIDE RECORDS SUMMARY | 2024-12-25 14:49 | XMS_ITS | Encounter Summary ---
Author Organization [employer] Address [address] [place] [address] 7 [place] [address] Care Team Providers Care Cushion Builder Name Role Phone Name, Beau FRANKS Primary Care Provider [phone] Reason for Visit * Reason Comments Med Refill Encounter Details Date Type Department Care Team ([facility] st Contact Info) Description 11/25/2024 Refill [facility] MED[facility] 230 [place], [place] [phone] Name, MD Beau [address] [place] [address] Asthma, unspecified asthma severity, unspecified whether complicated, [...] documented as of this encounter Care Teams Cushion Builder Relationship Specialty Start Date End Date Name, MD Beau [address] [place] [address] PCP - General Family Medicine 06/01/15 documented as of this encounter
--- OUTSIDE RECORDS SUMMARY | 2024-12-25 14:49 | XMS_ITS | Encounter Summary ---
Author Organization [employer] Address [address] [place] [address] 7 [place] [address] Care Team Providers Care Swing Tender Name Role Phone Name, Beau FRANKS Primary Care Provider [phone] Bambi Jauregui Unavailable Mechelle Dumont RN Unavailable Unavailable Encounter Details Date Type Department Care Team ([facility] st Contact Info) Description 02/28/2022 Orders Only [facility] CHC MED & PEDS [address] [place], [place] [phone] Kindra Woodall LPN Social History Tobacco Use [...] on filedocumented in this encounter Care Teams Swing Tender Relationship Specialty Start Date End Date Name, MD Beau [address] [place] [address] PCP - General Family Medicine 06/01/15 Bambi Jauregui Community Health Worker 06/27/2309/14 Mechelle Dumont RN Feed House Supervisor 06/27/23 09/15/23 documented as of this encounter
--- OUTSIDE RECORDS SUMMARY | 2024-12-25 14:49 | XMS_ITS | Clinical Summary ---
Author Organization [employer] Address [address] [place] [address] 7t [place] [address] Care Team Providers Care Registered Occupational Therapist Name Role Phone Name, Beau FRANKS Primary Care Provider [phone] Allergies Active Allergy Reactions Criticality Noted Date [...] avoid culprits, PPI Acute hypoxemic respiratory failure ([facility]) Lumbar radiculopathy, chronic 11/19/2024 Cirrhosis (CMS/HCC) 11/19/2024 [...] it until Saturday when he will see census clerk, as much as possible, I gave him [...] Type Department Care Team Description 12/12/2024 Refill [facility] [address] [place] [address] Beau Stewart MD Asthma, unspecified asthma severity, unspecified whether complicated, unspecified whether persistent 12/11/2024 Telephone [facility] [address] [place] [address] Beau Stewart MD Med Refill 12/08/2024 Refill [facility] [address] [place] [address] Beau Stewart MD Asthma, unspecified asthma severity, unspecified whether complicated, unspecified whether persistent 11/25/2024 Refill [facility] [address] [place] [address] Beau Stewart MD Asthma, unspecified asthma severity, unspecified whether complicated, unspecified whether persistent 11/19/2024 11:30 AM EDT Office Visit [facility] [address] [place] [address] Beau Stewart MD Heart failure with preserved ejection fraction, unspecified HF chronicity ([facility]) (Primary Dx); Type 2 diabetes mellitus with other specified complication, with long-term current use of insulin ([facility]); Anemia, unspecified type; Depression, unspecified depression type 11/19/2024 Orders Only GENERIC EXTERNAL DATA DEPARTMENT Provider, Generic External Data 11/19/2024 Travel 11/18/2024 Telephone [facility] [address] [place] [address] Beau Stewart MD CHARTPREP 11/18/2024 Telephone [facility] [address] [place] [address] Beau Stewart MD Durable Medical Equipment 11/01/2024 Refill [facility] [address] [place] [address] Beau Stewart MD 10/28/2024 Telephone [facility] [address] [place] [address] Beau Stewart MD Med Refill 10/28/2024 Refill [facility] [address] [place] [address] Felecia Gunderson NP Asthma, unspecified asthma severity, unspecified whether complicated, unspecified whether persistent 10/27/2024 Refill [facility] [address] [place] [address] Yudy Linn NP Asthma, unspecified asthma severity, unspecified whether complicated, unspecified whether persistent; Polyneuropathy due to type 2 diabetes mellitus ([facility]) 10/27/2024 Refill [facility] [address] [place] [address] Beau Stewart MD Polyneuropathy due to type 2 diabetes mellitus ([facility]) 10/21/2024 Refill [facility] [address] [place] [address] Felecia Gunderson NP Asthma, unspecified asthma severity, unspecified whether complicated, unspecified whether persistent 10/14/2024 Orders Only GENERIC EXTERNAL DATA DEPARTMENT Provider, Generic External Data 10/14/2024 Results Follow-Up [facility] [address] [place] [address] Beau Stewart MD POCT Glucose, CBC auto differential 10/08/2024 Refill [facility] [address] [place] [address] Beau Stewart MD Seborrheic dermatitis 09/28/2024 Orders Only GENERIC EXTERNAL DATA DEPARTMENT Provider, Generic External Data 09/27/2024 Refill [facility] [address] [place] [address] Name, MD Beau from Last 3 Months Immunizations Immunization Administration [...] X-Ray: Bitewings 07/05/2023 07/03/2022 COVID-19 Vaccine ( - season) 2024 02/23/2021, 06/06/2020, 05/09/2020 Influenza Vaccine [...] 11/19/2024 Dental X-Ray: Full Mouth 09/27/2026 09/27/2023, 10/2022 Colonoscopy 06/09/2030 06/09/2020 Colorectal Cancer Screening [...] Whole Blood 267(H) 60 - 115 mg/dL [facility] Comment:METER #: [id number] Testing performed in the Endocrinology Department [address] , [address], [facility]. 11/19/2024 2:14 PM EDT 11/19/2024 2:20 PM EDT Generic External Data Provider LAB BLOOD ORDERAB LES Final Result Performing Organization Address City/State/[facility] Co de Phone Number [facility] [address] [place] [phone] * (ABNORMAL) POCT Hgb A1c (11/19/2024 11:42 AM EDT) Pathologist [facility] Hemoglobin A1C 6.7(A) 4.0 - 5.7 % [employer] Media Lot # [id number] Lot# Expiration Date [id number] Blood 11/19/2024 11:4 2 AM EDT us Beau Stewart MD POINT OF CARE TEST ENTER/EDIT OR DERABLES Final Result * (ABNORMAL) POCT Glucose (11/19/2024 11:40 AM EDT) Glucose Blood, POC 204(A) 60 - 200 mg/dL [employer] Lot # [id number] Lot# Expiration Date 31,126 Blood Capillary blood specimen / Unknown 11/19/2024 11:40 AM EDT us Beau Stewart MD POINT OF CARE TEST ENTER/EDIT OR DERABLES Final Result * Protein Creatinine Ratio, Urine (10/14/2024 1:50 PM EDT) Creatinine, Urine 37.57 mg/dL [facility] Protein, Total, Random Urine <7 <12 mg/dL [facility] Protein/Creatin ine Ratio, Ur TNP <0.2 [facility] Comment:Unable to calculate urine protein creatinine ratio due tolow creatinine or protein result. 10/14/2024 1:50 PM EDT 10/14/2024 2:23 PM EDT us Generic External Data Provider LAB URINE ORDERAB LES Final Result [facility] [address] [place] [address] [phone] * (ABNORMAL) CBC auto differential (10/14/2024 1:50 PM EDT) White Blood Count 8.1 4.8 - 10.8 X10*3/uL [facility] Red Blood Count 3.99(L) 4.60 - 5.80 X10*6/uL [facility] Hemoglobin 8.7(L) 14.0 - 18.0 g/dl [facility] Hematocrit 29.1(L) 42.0 - 52.0 % [facility] Mean Corpuscular Volume 72.9(L) 80.0 - 98.0 fL [facility] Mean Corpuscular Hemoglobin 21.8(L) 27.0 - 33.0 pg [facility] Mean Corpuscular HGB Conc 29.9(L) 31.0 - 36.0 g/dl [facility] Red Cell Distribution Width 19.0(H) 11.0 - 16.0 % [facility] Platelet Count 376 160 - 400 X10*3/uL [facility] Mean Platelet Volume 8.9(L) 9.4 - 12.4 fL [facility] Neutrophils Percent Auto 75.4(H) 45 - 73 % [facility] Imm Gran Pct Auto 0.4 0.0 - 0.4 % [facility] Lymphocytes Percent Auto 18.2(L) 20 - 40 % [facility] Monocytes Percent Auto 5.8 2 - 11 % [facility] Eosinophils Percent Auto 0.0 0 - 4 % [facility] Basophils Percent Auto 0.2 0 - 2 % [facility] NRBC Pct Auto 0.0 0.0 - 0.2 /100WBC [facility] Neutrophils Absolute Auto 6.1 2.0 - 8.3 x10*3/uL [facility] Imm Gran Abs Auto 0.03 0.00 - 0.03 X10*3/uL [facility] Lymphocytes Absolute Auto 1.5 1.2 - 4.9 X10*3/uL [facility] Monocytes Absolute Auto 0.5 0.1 - 1.2 X10*3/uL [facility] Eosinophils Absolute Auto 0.0 0.0 - 0.4 X10*3/uL [facility] Basophils Absolute Auto 0.0 0.0 - 0.2 X10*3/uL [facility] NRBC Abs Auto 0.000 0.0 - 0.012 X10*3/uL [facility] Blood Venous blood specimen / Unknown 10/14/2024 1:50 PM EDT 10/14/2024 1:54 PM EDT us Beau Stewart MD LAB BLOOD ORDERABLES Final Resul t [facility] [address] [place] [phone] * B Type Natriuretic Peptide (BNP) (10/14/2024 1:50 PM EDT) B Type Natriuretic Peptide 12 <100 pg/mL [facility] Blood Venous blood specimen / Unknown 10/14/2024 1:50 PM EDT 10/14/2024 1:54 PM EDT us Beau Stewart MD LAB BLOOD ORDERABLES Final Resul t Performing Organization Address [facility] Co de Phone Number [facility] [address] [place] [address] [phone] * (ABNORMAL) Basic Metabolic Panel (10/14/2024 1:50 PM EDT) Sodium 139 135 - 145 mmol/L [facility] Potassium 3.8 3.3 - 5.1 mmol/L [facility] Chloride 102 96 - 108 mmol/L [facility] Carbon Dioxide 28 22 - 29 mmol/L [facility] Anion Gap 13 12 - 20 [facility] Urea Nitrogen (BUN) 13 9 - 16 mg/dL [facility] Creatinine, Serum 1.19 0.5 - 1.4 mg/dL [facility] Estimated Glomerular Filt Rate >60 [facility] Comment:Chronic Kidney Disea se: Estimated GFR < 60 mL/min/[id number] Kidney Disease: Estimated GFR < 15 mL/min/1.73m2 Glucose 144(H) 60 - 115 mg/dL [facility] Calcium 8.7 8.4 - 10.2 mg/dL [facility] Blood Venous blood specimen / Unknown 10/14/2024 1:50 PM EDT 10/14/2024 1:54 PM EDT us Beau Stewart MD LAB BLOOD ORDERABLES Final Resul t Performing Organization Address [facility] Co de Phone Number [facility] [address] [place] [phone] * (ABNORMAL) Lipid Panel, Standard (07/07/2024 3:17 PM EDT) Triglycerides 195(H) <150 mg/dL [facility] Comment:Desirable Triglyceri de: less than 150 mg/dLBorderline High Triglyceride 150-199 mg/dLHigh Triglyceride: 200-499 mg/dLVery High Triglyceride: greater than or equal to 5OO mg/dL Cholesterol 128 <200 mg/dL [facility] Comment:Desirable Cholestero l: less than 200 mg/dLBorderline High Cholesterol: 200-239 mg/dLHigh Cholesterol: greater than 239 mg/dL LDL Cholesterol Calculated 53 <100 mg/dL [facility] Comment:Desirable LDL: less than 100 mg/dLNear Optimal/Above Optimal LDL: 110- 129 mg/dLBorderline High LDL: 130-159 mg/dLHigh LDL: 160-189 mg/dLVery High LDL: greater than or equal to 190 mg/dL HDL Cholesterol 36(L) >40 mg/dL [facility] Comment:Desirable HDL: great er than 40 mg/dL Note: This HDL assay may give artificially low results in patients with liver disease. 07/07/2024 3:17 PM EDT 07/07/2024 3:17 PM EDT Generic External Data Provider LAB BLOOD ORDERAB LES Final Result Performing Organization Address [facility]/ZIP Co de Phone Number [facility] [address] [place] [address] [phone] * Hepatitis C Antibody with Reflex to HCV, RNA, Quantitative, Real-Time PCR (11/06/2023 3:26 PM EDT) Hepatitis C Antibody Nonreactive Nonreactive [facility] Comment:Antibodies to HCV no t detected; does not exclude early acuteHCV infection. Blood Venous blood specimen / Unknown 11/06/2023 3:26 PM EDT 11/06/2023 3:58 PM EDT Beau Stewart MD LAB BLOOD ORDERABLES Final Resul t Performing Organization Address City/[facility]/ZIP Co de Phone Number [facility] [address] [place] [address] [phone] * Hm Colonoscopy (06/09/2020 2:16 PM EDT) Colonoscopy Normal Normal Narrative Radha Aviles - 06/09/2020 2:16 PM EDT Recommended 10 year follow up ([facility]) Historical Provider HEALTH MAINTENANCE Final Result from Last 3 Months or Most Recently Relevant to Health Maintenance Insurance [place] [facility] [employer] Care Teams Registered Occupational Therapist Relationship Specialty Start Date End Date Name, MD Beau [address] [place] [address] PCP - General Family Medicine 06/01/15
== END 2024-12-25 14:11 | disposition home or self-care (01) ==
LOC: HO.HKA 13:56
PROVIDERS: PCP Internal Medicine Geriatric Medicine; Visit Provider Internal Medicine Nephrology
DX: I10 Essential (primary) hypertension (principal); N18.31 Chronic kidney disease, stage 3a
CPT/HCPCS: 99214

== ENCOUNTER → 2024-12-25 13:55 | Outpatient (BNVA) | payer MEDICAID, SELFPAY | PROVIDERS: PCP Internal Medicine Geriatric Medicine; Visit Provider Internal Medicine Nephrology | DX: I12.9 Hypertensive chronic kidney disease with stage 1 through stage 4 chronic kidney disease, or unspecified chronic kidney disease (principal); N18.31 Chronic kidney disease, stage 3a; Z79.899 Other long term (current) drug therapy | CPT/HCPCS: 99212 ==

== ENCOUNTER 2025-01-04 12:00 | Outpatient (RCR) | payer MEDICAID, SELFPAY ==
[2024-11-16 11:47] VITALS: BP 132/56; PULSE 110; RESP 16; TEMP 36.6; O2SAT 97
[2024-11-16] MEDS: Iron Sucrose Complex 200 MG, Iron Sucrose Complex 100 MG in 0.9 % Sodium Chloride 250 ML 176.67 MG IV (12:14)
[2024-11-23 12:49] VITALS: BP 130/70; PULSE 90; RESP 18; TEMP 36.6; O2SAT 97
[2024-11-23] MEDS: Iron Sucrose Complex 200 MG, Iron Sucrose Complex 100 MG in 0.9 % Sodium Chloride 250 ML 177 MG IV (12:58)
[2024-11-30 11:59] VITALS: BP 155/78; PULSE 102; RESP 20; TEMP 36.8; O2SAT 96
[2024-11-30] MEDS: Iron Sucrose Complex 200 MG, Iron Sucrose Complex 100 MG in 0.9 % Sodium Chloride 250 ML 177 MG IV (12:25)
[2024-12-08 12:13] VITALS: BP 130/77; PULSE 98; RESP 16; TEMP 36.6; O2SAT 97
[2024-12-08] MEDS: Iron Sucrose Complex 200 MG, Iron Sucrose Complex 100 MG in 0.9 % Sodium Chloride 250 ML 177 MG IV (12:22)
[2024-12-08 12:30] LABS: Hematocrit 32.3 % (42.0-52.0); Hemoglobin 9.9 g/dl (14.0-18.0); Mean Corpuscular HGB Conc 30.7 g/dl (31.0-36.0); Mean Corpuscular Hemoglobin 25.3 pg (27.0-33.0); Mean Corpuscular Volume 82.6 fL (80.0-98.0); NRBC Abs Auto 0.000 X10*3/uL (0.0-0.012); NRBC Pct Auto 0.0 /100WBC (0.0-0.2); Platelet Count 263 X10*3/uL (160-400); Red Blood Count 3.91 X10*6/uL (4.60-5.80); White Blood Count 7.7 X10*3/uL (4.8-10.8)
[2024-12-08 13:01] LABS: Ferritin 254 ng/mL (20-250)
[2024-12-14 12:13] VITALS: BP 141/77; RESP 16; TEMP 36.4; O2SAT 98
[2024-12-14] MEDS: Iron Sucrose Complex 200 MG, Iron Sucrose Complex 100 MG in 0.9 % Sodium Chloride 250 ML 177 MG IV (12:32)
[2024-12-21 11:59] VITALS: BP 161/79; PULSE 98; RESP 16; TEMP 36.7; O2SAT 98
[2024-12-21] MEDS: Iron Sucrose Complex 200 MG, Iron Sucrose Complex 100 MG in 0.9 % Sodium Chloride 250 ML 177 MG IV (12:08)
[2024-12-28 12:11] VITALS: BP 147/86; PULSE 102; RESP 16; TEMP 36.4; O2SAT 98
[2024-12-28] MEDS: Iron Sucrose Complex 200 MG, Iron Sucrose Complex 100 MG in 0.9 % Sodium Chloride 250 ML 177 MG IV (12:20)
[2024-12-28] MEDS: 0.9 % Sodium Chloride Flush 10 ML SYRINGE 5 ML IVFLUSH (13:52)
[2025-01-04 12:01] VITALS: BP 134/70; PULSE 100; RESP 16; TEMP 36.6; O2SAT 96
[2025-01-04] MEDS: Iron Sucrose Complex 200 MG, Iron Sucrose Complex 100 MG in 0.9 % Sodium Chloride 250 ML 177 MG IV (12:24)
[2025-01-04 12:33] LABS: Hematocrit 37.2 % (42.0-52.0); Hemoglobin 11.8 g/dl (14.0-18.0); Mean Corpuscular HGB Conc 31.7 g/dl (31.0-36.0); Mean Corpuscular Hemoglobin 26.8 pg (27.0-33.0); Mean Corpuscular Volume 84.5 fL (80.0-98.0); NRBC Abs Auto 0.000 X10*3/uL (0.0-0.012); NRBC Pct Auto 0.0 /100WBC (0.0-0.2); Platelet Count 269 X10*3/uL (160-400); Red Blood Count 4.40 X10*6/uL (4.60-5.80); White Blood Count 8.6 X10*3/uL (4.8-10.8)
[2025-01-04 13:06] LABS: Ferritin 830 ng/mL (20-250)
== END 2025-01-04 13:56 | disposition home or self-care (01) ==
LOC: HO.INF 12:00
PROVIDERS: Visit Provider Internal Medicine Medical Oncology
DX: D64.9 Anemia, unspecified (principal)
CPT/HCPCS: 36415; 82728; 85027; 96365; 96366; J1756

== ENCOUNTER 2025-01-11 14:57 | Outpatient (REF) | payer MEDICAID, SELFPAY ==
[2025-01-11 16:30] LABS: Prostate Specific Antigen 0.32 ng/mL (<0.05-4.0)
== END 2025-01-11 14:58 | disposition home or self-care (01) ==
LOC: HO.LAB 14:57
PROVIDERS: PCP Internal Medicine Geriatric Medicine; Visit Provider Nurse Practitioner Family
DX: J45.50 Severe persistent asthma, uncomplicated (principal); G47.33 Obstructive sleep apnea (adult) (pediatric); Z99.89 Dependence on other enabling machines and devices; R60.0 Localized edema; Z79.899 Other long term (current) drug therapy; E11.8 Type 2 diabetes mellitus with unspecified complications; N52.1 Erectile dysfunction due to diseases classified elsewhere
CPT/HCPCS: 36415; 84153; 99212

== ENCOUNTER 2025-01-11 15:36 | Outpatient (AMB) | payer MEDICAID, SELFPAY ==
--- NOTE | 2025-01-11 15:45 | A.OFFVIS_ITS ---
Vital Signs 01/11/25 15:47 Height 5 ft 6 in Weight 304 lb BMI 49.1 BP 142/78 H Blood Pressure Location Rt brachial Position Sitting Pulse 98 Pulse Source Pulse Oximeter Pulse Oximetry (%) 98 Oxygen Delivery Method Room Air Intake Visit Reasons: Asthma Allergies mold Allergy (Unknown, Verified 01/11/25 15:51) Difficulty Breathing pollen extracts Allergy (Verified 01/11/25 15:51) Unknown HPI HPI Asthma: Details: 54-year-old gentleman, lifetime nonsmoker, with underlying history of at least moderate diastolic dysfunction, followed for dyspnea on exertion, MAURIZIO on CPAP, and severe persistent asthma.?He has been compliant with CPAP with good control of his underlying symptoms.? His asthma symptoms is controlled on Fasenra, Breo, and albuterol MDI. He continues to follow-up with Nephrology for underlying lower extremity edema in his Bumex has been increased to 2 mg twice a day with some improvement, but still with significant lower extremity edema and orthopnea. Patient had his 2D echocardiogram that showed some diastolic dysfunction. [facility] Medical History Dyspnea on exertion Edema HTN (hypertension) Type 2 diabetes mellitus with diabetic polyneuropathy Iron deficiency anemia Cirrhosis Severe persistent allergic asthma Foot drop, left Lumbar radiculopathy, chronic Abnormal ECG Obesity due to excess calories Hx of pancreatitis Acid reflux Elevated alkaline phosphatase measurement Asthma MAURIZIO on CPAP Morbid obesity Degeneration of L4-L5 intervertebral disc Diabetes Anemia Apnea, sleep Obstructive sleep apnea Surgical History Hx of cholecystectomy History of back surgery Family History Father Diabetes Hearing loss Mother CVD (cardiovascular disease) Thyroid condition Paternal Grandmother Diabetes High blood pressure Paternal Aunt Diabetes High blood pressure Sister No problems noted. Sister No problems noted. 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 Review of Systems Const Denies daytime sleepiness, Denies excessive sweating, Denies fatigue, Denies fever(s), Denies lethargy, Denies malaise, Denies night sweats, Denies snoring and Denies weight loss Eyes Denies blurry vision and Denies itchy eyes ENT Denies nasal congestion, Denies post nasal drip, Denies sinus pain, Denies sinus pressure and Denies other ( Thrush) Card Denies chest pain, Denies pedal edema, Denies dyspnea, Denies orthopnea and Denies paroxysmal nocturnal dyspnea Resp Denies cough, Denies hemoptysis, Denies excessive phlegm production, Denies dyspnea, Denies snoring and Denies wheezing GI Denies abdominal pain and Denies heartburn Musc Denies myalgias, Denies arthralgias and Denies joint swelling Skin/Breast Denies rash Neuro Denies memory loss and Denies seizure-like activity Psych Denies abnormal sleep pattern, Denies anxiety and Denies memory loss Endo Denies excessive sweating, Denies fatigue and Denies heat intolerance Brennan/Lymph Denies easy bruising Aller/Immun Denies itchy eyes, Denies seasonal rhinorrhea and Denies wheezing Physical Exam Vital Signs: Last Vital Signs Pulse 98 01/11/25 15:47 BP 142/78 H 01/11/25 15:47 Pulse Ox 98 01/11/25 15:47 Oxygen Delivery Method Room Air 01/11/25 15:47 BMI result Body Mass Index 49.1 Const General: no acute distress and alert Nutritional Appearance: obese Orientation/consciousness: Other orientation findings ( oriented) HEENT Head: Yes atraumatic Eyes General: appearance normal, both eyes and all related structures Sclerae: sclerae normal EOM: EOMs intact bilaterally Neck Neck: Yes supple Lymphatic: no lymphadenopathy noted Resp Effort & Inspection: normal respiratory effort and no use of accessory muscles Auscultation: clear to auscultation bilaterally Cardio Rate: regular rate Rhythm: regular rhythm Heart sounds: no gallops, no murmurs and no rubs Skin General skin exam: other ( warm) Extrem General: No clubbing, No cyanosis and Yes edema Assessment & Plan Assessment & Plan (1) Severe persistent asthma: Code(s): J45.50 - Severe persistent asthma, uncomplicated Category: Medical Plan: Well controlled on current regimen of Fasenra, Breo, duo nebs, and albuterol MDI. Continue current regimen. (2) MAURIZIO on CPAP: Code(s): G47.33 - Obstructive sleep apnea (adult) (pediatric); Z99.89 - Dependence on other enabling machines and devices Category: Medical Plan: Therapy and compliance report reviewed - patient is benefitting from and is compliant with noninvasive positive pressure ventilation treatment, using it greater than 70% of the time, more than 4 hours per night. Continue current CPAP therapy. (3) Lower extremity edema: Code(s): R60.0 - Localized edema Category: Medical Plan: Reasonably controlled on current diuretic regimen of Bumex 2 mg twice a day. Coding Level of Care Code Est Pt Level 4 (06671) Complex EM visit Add On G2211 Diagnoses Severe persistent asthma J45.50 MAURIZIO on CPAP G47.33; Z99.89 Lower extremity edema R60.0
[2025-01-11 15:47] VITALS: BP 142/78; PULSE 98; O2SAT 98; BMI 49.1
== END 2025-01-11 16:02 | disposition home or self-care (01) ==
LOC: HO.HPS 15:37
PROVIDERS: PCP Internal Medicine Geriatric Medicine; Visit Provider Internal Medicine Pulmonary Disease
DX: J45.50 Severe persistent asthma, uncomplicated (principal); G47.33 Obstructive sleep apnea (adult) (pediatric); Z99.89 Dependence on other enabling machines and devices; R60.0 Localized edema
CPT/HCPCS: 99214

== ENCOUNTER 2025-01-18 12:54 | Outpatient (AMB) | payer MEDICAID, SELFPAY ==
--- NOTE | 2025-01-18 13:02 | A.OFFVIS_ITS ---
Intake Intake Visit Reasons: 60 min Allergies mold Allergy (Unknown, Verified 01/11/25 15:51) Difficulty Breathing pollen extracts Allergy (Verified 01/11/25 15:51) Unknown HPI Comprehensive Diabetes Asmnt Most Recent Diabetes Results: 2 Microalb/Creat Ratio, (<30) 26.4 ug/mg cr 07/07/24 Cholesterol, (<200) 128 mg/dL 07/07/24 HDL Cholesterol, (>40) 36 mg/dL L 07/07/24 Triglycerides, (<150) 195 mg/dL H 07/07/24 Creatinine, (0.5-1.4) 1.49 mg/dL H 11/03/24 BUN, (9-16) 15 mg/dL 11/03/24 Sodium, (135-145) 137 mmol/L 11/03/24 Potassium, (3.3-5.1) 4.1 mmol/L 11/03/24 Chloride, (96-108) 104 mmol/L 11/03/24 Carbon Dioxide, (22-29) 25 mmol/L 11/03/24 Calcium, (8.4-10.2) 8.3 mg/dL L 11/03/24 AST, (5-37) 33 U/L 11/03/24 ALT, (0-40) 23 U/L 11/03/24 Total Protein, (6.5-8.0) 6.6 g/dL 11/03/24 Albumin, (3.5-5.0) 3.4 g/dL L 11/03/24 [facility] Medical History Dyspnea on exertion Edema HTN (hypertension) Type 2 diabetes mellitus with diabetic polyneuropathy Iron deficiency anemia Cirrhosis Severe persistent allergic asthma Foot drop, left Lumbar radiculopathy, chronic Abnormal ECG Obesity due to excess calories Hx of pancreatitis Acid reflux Elevated alkaline phosphatase measurement Asthma MAURIZIO on CPAP Morbid obesity Degeneration of L4-L5 intervertebral disc Diabetes Anemia Apnea, sleep Obstructive sleep apnea Surgical History Hx of cholecystectomy History of back surgery Family History Father Diabetes Hearing loss Mother CVD (cardiovascular disease) Thyroid condition Paternal Grandmother Diabetes High blood pressure Paternal Aunt Diabetes High blood pressure Sister No problems noted. Sister No problems noted. 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 checks BG freestyle Monty 3+ with reader Downloaded meter today Patient? reports glycemic control as: Good Most recent Hgb A1C: 6.9 % September 2024 Frequency of low B-4 times aweek Low BG treatment: Jiuce or candy Frequency of high BG: daily Has pt been on a pump in the past? No Reviewed insulin pump basics today with Patient. Explained pros and cons of insulin pumps. Showed pt various pumps, infusion sets, and cgms currently available. Reviewed need to wear pump 24/7 and need to change infusion set every 3 days. Also stressed importance of frequent BG checks, 4x daily minimum or use pump that is integrated with CGM.? TDD:150 units Patient demonstrated motivation for continued insulin pump education and understands the need to complete education prior to starting insulin pump for best outcome. At this time patient does not want to pursue insulin pump therapy. He has follow-up appointment with Dr. Vicente on 02/23/2025. He will consider between now and seeing diabetes education nurse in 2 months if he is interested in pursuing insulin pump therapy At today's visit we did discuss reducing Toujeo 84 units to today to 80 units due to hypoglycemia Patient agreed to plan Patient also stated he has better understanding on how to use his new lispro sliding scale Instructed patient if he continues to have hypoglycemia to contact in service educator or provider Portions of this note were created using voice recognition software, please excuse any words or phrases that may have been misinterpreted. Patient Instructions: Reduce Toujeo from 84 units to 80 units daily follow up with Diabetes Education in 2 month Coding Level of Care Code Est Pt Level 1 (96329) Diagnoses Type 2 diabetes mellitus with diabetic polyneuropathy, with long-term current use of insulin E11.42; Z79.4 Diabetes mellitus terminal gauger insulin use: with detention use
--- OUTSIDE RECORDS SUMMARY | 2025-01-18 17:14 | XMS_ITS | Encounter Summary ---
Author Organization [employer] Address [address] [place] [address] 7 [place] [address] Care Team Providers Care Assistant Laboratory Director Name Role Phone Name, Beau FRANKS Primary Care Provider Reason for Visit * Reason Onset Date Comments Med Refill 10/04/2023 Encounter Details Date Type Department Care Team (Late st Contact Info) Description 10/04/2023 Telephone [facility] MEDICINE [address] [place], [place] [phone] Name, MD Beau [address] [place] [address] Med Refill Social History Tobacco Use Types [...] MG EC tablet To be sent to: [id number] [place], [place] - [address] [facility] documented in this encounter Plan of Treatment Upcoming Encounters Date Type Department Care Team (Late st Contact Info) Description 04/20/2025 1:00 PM EST Office Visit [facility] OPTOMETRY [address] [place] [address] Florecita Esquivel, OD [address] [place] [address] documented as of this encounter Visit Diagnoses Not on filedocumented in this encounter Additional Health Concerns Assessment Noted Time PHQ-9 Depression Total Score: 19 023 3:46 PM EDT documented as of this encounter Care Teams Assistant Laboratory Director Relationship Specialty Start Date End Date Name, MD Beau [address] [place] [address] PCP - General Family Medicine 06/01/15 documented as of this encounter
--- OUTSIDE RECORDS SUMMARY | 2025-01-18 17:14 | XMS_ITS | Encounter Summary ---
Author Organization [employer] Address [address] [place] [address] 7 [place] [address] Care Team Providers Care Program Services Planner Name Role Phone Name, Beau FRANKS Primary Care Provider [phone] Bambi Jauregui Unavailable Mechelle Dumont RN Unavailable Unavailable Reason for Visit * Reason Onset Date Comments Med Refill 08/21/2022 Encounter Details Date Type Department Care Team ([facility] st Contact Info) Description 08/21/2022 Telephone [facility] MEDICINE [address] [place] [address] Name, MD Beau [address] [place] [address] Med Refill Social History Tobacco Use Types [...] Description 04/20/2025 1:00 PM EST Office Visit [facility] OPTOMETRY [address] [place], [place] [phone] Florecita Esquivel, OD [address] [place] [address] documented as of this encounter Visit Diagnoses Not on filedocumented in this encounter Care Teams Program Services Planner Relationship Specialty Start Date End Date Name, MD Beau [address] [place] [address] PCP - General Family Medicine 06/01/15 Bambi Jauregui Community Health Worker 06/27/2309/14 Mechelle Dumont, ISABEL Greaser Helper 06/27/23 09/15/23 documented as of this encounter
--- OUTSIDE RECORDS SUMMARY | 2025-01-18 17:14 | XMS_ITS | Encounter Summary ---
Author Organization [employer] Address [address] [place] [address] 7t [place] [address] Care Team Providers Care Transportation Economics Teacher Name Role Phone Name, Beau FRANKS Primary Care Provider [phone] Reason for Visit * Reason Comments Med Refill Encounter Details Date Type Department Care Team ([facility] st Contact Info) Description 04/07/2024 Refill [facility] MEDICINE [address] [place], [place] [phone] Laura Russell MD [address] [place], [place] [phone] Asthma, unspecified asthma severity, unspecified whether complicated, [...] Description 04/20/2025 1:00 PM EST Office Visit [facility] OPTOMETRY [address] [place] [address] AlvinFlorecita holloway, OD [address] [place] [address] documented as of this encounter Visit Diagnoses Diagnosis Asthma, unspecified asthma severity, unspecified whether complicated, unspecified whether persistent documented in this encounter Additional Health Concerns Assessment Noted Time PHQ-9 Depression Total Score: 24 024 3:46 PM EST documented as of this encounter Care Teams Transportation Economics Teacher Relationship Specialty Start Date End Date Name, MD Beau [address] [place] [address] PCP - General Family Medicine 06/01/15 documented as of this encounter
--- OUTSIDE RECORDS SUMMARY | 2025-01-18 17:14 | XMS_ITS | Encounter Summary ---
Author Organization [employer] Address [address] [place] [address] 7 [place] [address] Care Team Providers Care Funeral Car Driver Name Role Phone Name, Beau FRANKS Primary Care Provider [phone] Reason for Visit * Reason Comments Med Refill Encounter Details Date Type Department Care Team ([facility] st Contact Info) Description 09/19/2023 Refill [facility] MEDICINE [address] [place], [place] [phone] Name, MD Beau [address] [place], [place] [phone] Erectile dysfunction, unspecified erectile dysfunction type Social [...] Description 04/20/2025 1:00 PM EST Office Visit [facility] OPTOMETRY [address] [place] [address] Alvin, Florecita, OD [address] [place] [address] documented as of this encounter Visit Diagnoses Diagnosis Erectile dysfunction, unspecified erectile dysfunction type documented in this encounter Additional Health Concerns Assessment Noted Time PHQ-9 Depression Total Score: 19 023 3:46 PM EDT documented as of this encounter Care Teams Funeral Car Driver Relationship Specialty Start Date End Date Name, MD Beau [address] [place] [address] PCP - General Family Medicine 06/01/15 documented as of this encounter
--- OUTSIDE RECORDS SUMMARY | 2025-01-18 17:14 | XMS_ITS | Encounter Summary ---
Author Organization [employer] Address [address] [place] [address] [address], [place] [address] Care Team Providers Care Sand Mill Operator Name Role Phone Name, Beau FRANKS Primary Care Provider [phone] Bambi Jauregui Unavailable Mechelle Dumont RN Unavailable Unavailable Reason for Visit * Reason Comments Med Refill Encounter Details Date Type Department Care Team (Late st Contact Info) Description 06/11/2022 Refill [facility] MEDICINE [address] [place] [address] NameBeau MD [address] [place] [address] Iron deficiency Social History Tobacco Use Types [...] Description 04/20/2025 1:00 PM EST Office Visit [facility] OPTOMETRY [address] [place] [address] Florecita Esquivel OD [address] [place] [address] documented as of this encounter Visit Diagnoses Diagnosis Iron deficiency Disorders of iron metabolism documented in this encounter Care Teams Sand Mill Operator Relationship Specialty Start Date End Date Beau Stewart MD [address] [place] [address] PCP - General Family Medicine 06/01/15 Bambi Jauregui Community Health Worker 06/27/2309/14 Mechelle Dumont, ISABEL Rn Cardiovascular Icu 06/27/23 09/15/23 documented as of this encounter
--- OUTSIDE RECORDS SUMMARY | 2025-01-18 17:14 | XMS_ITS | Encounter Summary ---
Author Organization [employer] Address [address] [place] [address] 7t [place] [address] Care Team Providers Care Fretted Instrument Maker Hand Name Role Phone Name, Beau FRANKS Primary Care Provider [phone] Reason for Visit * Reason Comments Med Refill Encounter Details Date Type Department Care Team ([facility] st Contact Info) Description 10/04/2023 Refill [facility] MEDICINE [address] [place], [place] [phone] Name, MD Beau [address] [place] [address] Social History Tobacco Use Types Packs/Day Years [...] Description 04/20/2025 1:00 PM EST Office Visit [facility] OPTOMETRY [address] [place] [address] Alvin, Florecita, OD [address] [place] [address] documented as of this encounter Visit Diagnoses Not on filedocumented in this encounter Additional Health Concerns Assessment Noted Time PHQ-9 Depression Total Score: 19 023 3:46 PM EDT documented as of this encounter Care Teams Fretted Instrument Maker Hand Relationship Specialty Start Date End Date Name, MD Beau [address] [place] [address] PCP - General Family Medicine 06/01/15 documented as of this encounter
--- OUTSIDE RECORDS SUMMARY | 2025-01-18 17:14 | XMS_ITS | Encounter Summary ---
Author Organization [employer] Address [address] [place] [address] 7 [place] [address] Care Team Providers Care Glue Clamp Operator Name Role Phone Name, Beau FRANKS Primary Care Provider [phone] Bambi Jauregui Unavailable Mechelle Dumont RN Unavailable Unavailable Reason for Visit * Reason Comments Med Refill Encounter Details Date Type Department Care Team (Late st Contact Info) Description 06/08/[address] [facility] MEDICINE [address] [place] [address] Name, MD Beau [address] [place] [address] Asthma, unspecified asthma severity, unspecified whether complicated, [...] Department Care Team (Late Contact Info) Description 04/20/2025 1:00 PM EST Office Visit [facility] OPTOMETRY [address] [place], [place] [phone] Florecita Esquivel, OD [address] [place] [address] documented as of this encounter Visit Diagnoses Diagnosis Asthma, unspecified asthma severity, unspecified whether complicated, unspecified whether persistent documented in this encounter Care Teams Glue Clamp Operator Relationship Specialty Start Date End Date Name, MD Beau [address] [place] [address] PCP - General Family Medicine 06/01/15 Bambi Jauregui Community Health Worker 06/27/2309/14 Mechelle Dumont RN Occupational Health And Safety Manager 06/27/23 09/15/23 documented as of this encounter
--- OUTSIDE RECORDS SUMMARY | 2025-01-18 17:14 | XMS_ITS | Encounter Summary ---
Author Organization [employer] Address [address] [place] [address] 7 [place] [address] Care Team Providers Care Driver Lifter Of Sanitation Truck Name Role Phone Name, Beau FRANKS Primary Care Provider [phone] Reason for Visit * Reason Comments Med Refill Encounter Details Date Type Department Care Team ([facility] st Contact Info) Description 10/18/2023 Refill [facility] MEDICINE [address] [place], [place] [phone] Chiquis Harris MD [address] [place] [address] Iron deficiency Social History Tobacco Use Types [...] Description 04/20/2025 1:00 PM EST Office Visit [facility] OPTOMETRY [address] [place] [address] Alvin, Florecita, OD [address] [place] [address] documented as of this encounter Visit Diagnoses Diagnosis Iron deficiency Disorders of iron metabolism documented in this encounter Additional Health Concerns Assessment Noted Time PHQ-9 Depression Total Score: 19 023 3:46 PM EDT documented as of this encounter Care Teams Driver Lifter Of Sanitation Truck Relationship Specialty Start Date End Date Name, MD Beau [address] [place] [address] PCP - General Family Medicine 06/01/15 documented as of this encounter
--- OUTSIDE RECORDS SUMMARY | 2025-01-18 17:14 | XMS_ITS | Encounter Summary ---
Author Organization [employer] Address [address] [place] [address] 7 [place] [address] Care Team Providers Care Customer Specialist Name Role Phone Name, Beau FRANKS Primary Care Provider [phone] Bambi Jauregui Unavailable Mechelle Dumont RN Unavailable Unavailable Reason for Visit * Reason Comments Med Refill Encounter Details Date Type Department Care Team (Late st Contact Info) Description 05/28/2022 Refill [facility] MEDICINE [address] [place] [address] Name, MD eBau [address] [place] [address] Asthma, unspecified asthma severity, unspecified whether complicated, [...] Description 04/20/2025 1:00 PM EST Office Visit [facility] OPTOMETRY [address] [place], [place] [phone] Florecita Esquivel, OD [address] [place] [address] documented as of this encounter Visit Diagnoses Diagnosis Asthma, unspecified asthma severity, unspecified whether complicated, unspecified whether persistent documented in this encounter Care Teams Customer Specialist Relationship Specialty Start Date End Date Name, MD Beau [address] [place] [address] PCP - General Family Medicine 06/01/15 Bambi Jauregui Community Health Worker 06/27/2309/14 Mechelle Dumont RN Oil And Gas Superintendent 06/27/23 09/15/23 documented as of this encounter
--- OUTSIDE RECORDS SUMMARY | 2025-01-18 17:14 | XMS_ITS | Encounter Summary ---
Author Organization [employer] Address [address] [place] [address] 7 [place] [address] Care Team Providers Care Transportation Modeler Name Role Phone Name, Beau FRANKS Primary Care Provider [phone] Reason for Visit * Reason Comments Med Refill Encounter Details Date Type Department Care Team ([facility] st Contact Info) Description 06/02/2024 Refill [facility] MEDICINE [address] [place], [place] [phone] Name, MD Beau [address] [place] [address] Asthma, unspecified asthma severity, unspecified whether complicated, [...] Description 04/20/2025 1:00 PM EST Office Visit [facility] OPTOMETRY [address] [place] [address] Alvin, Florecita, OD [address] [place] [address] documented as of this encounter Visit Diagnoses Diagnosis Asthma, unspecified asthma severity, unspecified whether complicated, unspecified whether persistent documented in this encounter Additional Health Concerns Assessment Noted Time PHQ-9 Depression Total Score: 24 024 3:46 PM EST documented as of this encounter Care Teams Transportation Modeler Relationship Specialty Start Date End Date Name, MD Beau [address] [place] [address] PCP - General Family Medicine 06/01/15 documented as of this encounter
--- OUTSIDE RECORDS SUMMARY | 2025-01-18 17:14 | XMS_ITS | Encounter Summary ---
Author Organization [employer] Address [address] [place] [address] 7 [place] [address] Care Team Providers Care Fitness Leader Name Role Phone Name, Beau FRANKS Primary Care Provider [phone] Bambi Jauregui Unavailable Mechelle Dumont RN Unavailable Unavailable Encounter Details Date Type Department Care Team (Late Contact Info) Description 08/06/2022 Abstract [facility] MEDICINE [address] [place], [place] [phone] Name, MD Beau [address] [place] [address] Social History Tobacco Use Types Packs/Day Years [...] Description 04/20/2025 1:00 PM EST Office Visit [facility] OPTOMETRY [address] [place], [place] [phone] Florecita Esquivel, JADIEL [address] [place], [place] [phone] documented as of this encounter Procedures Procedure Name Priority Date/Time Associated Diagnosis Comments HM COLONOSCOPY Routine 06/09/2020 2:16 PM EDT documented in this encounter Results * Hm Colonoscopy (06/09/2020 2:16 PM EDT) Colonoscopy Normal Normal Narrative Radha Aviles - 06/09/2020 2:16 PM EDT Recommended 10 year follow up ([facility]) Historical Provider HEALTH MAINTENANCE Final Result documented in this encounter Visit Diagnoses Not on filedocumented in this encounter Care Teams Fitness Leader Relationship Specialty Start Date End Date Name, MD Beau [address] [place] [address] PCP - General Family Medicine 06/01/15 Bambi Jauregui Community Health Worker 06/27/2309/14 Mechelle Dumont RN Rand Butter 06/27/23 09/15/23 documented as of this encounter
--- OUTSIDE RECORDS SUMMARY | 2025-01-18 17:15 | XMS_ITS | Encounter Summary ---
Author Organization [employer] Address [address] [place] [address] 7 [place] [address] Care Team Providers Care Director Employment Name Role Phone Name, Beau FRANKS Primary Care Provider [phone] Reason for Visit * Reason Onset Date Comments Med Refill 01/14/2025 Encounter Details Date Type Department Care Team ([facility] st Contact Info) Description 01/14/2025 Telephone [facility] MEDICINE [address] [place], [place] [phone] Name, MD Beau [address] [place] [address] Med Refill Social History Tobacco Use Types [...] Telephone Encounter - Kindra Woodall LPN - 01/14/2025 1:01 PM EST Script was sent to [facility] on 12/14/24 with 1 refill. * Telephone Encounter - Brad Slade - 01/14/2025 12:59 PM EST TC from pt requesting medication refill. Medications needing refill : Ventolin HFA 108 (90 Base) MCG/ACT inhaler To be sent to: [id number] [place], [place] - [address] [facility] documented in this encounter Plan of Treatment Upcoming Encounters Date Type Department Care Team (Late st Contact Info) Description 04/20/2025 1:00 PM EST Office Visit [facility] OPTOMETRY [address] [place], [place] [phone] Alvin, Florecita, OD [address] [place] [address] documented as of this encounter Goals Goal Patient Goal Type Associated Problems Recent Progress Patient-Stated? Author Help patients manage their type 2 diabetes Care Plan Help patients manage their type 2 diabetes No Brad Luna Weekly blood pressure task Care Plan Weekly blood pressure task No Brad Luna Help patients manage their type 2 diabetes Care Plan Help patients manage their type 2 diabetes No Brad Luna Patient has chronic kidney disease Care Plan Patient has chronic kidney disease No Brad Luna Weekly blood pressure task Care Plan Weekly blood pressure task No Brad Luna Patient has chronic kidney disease Care Plan Patient has chronic kidney disease No Brad Luna documented as of this encounter Visit Diagnoses Not on filedocumented in this encounter Additional Health Concerns Active Problems Noted Date Diagnosed Date Help patients manage their type 2 diabetes 01/14 Weekly blood pressure task 01/14/2025 Help patients manage their type 2 diabetes 01/14 Patient has chronic kidney disease 01/14/2025 Weekly blood pressure task 01/14/2025 Patient has chronic kidney disease 01/14/2025 Assessment Noted Time PHQ-9 Depression Total Score: 25 025 11:48 AM EDT documented as of this encounter Care Teams Director Employment Relationship Specialty Start Date End Date Name, MD Beau [address] [place] [address] PCP - General Family Medicine 06/01/15 documented as of this encounter
--- OUTSIDE RECORDS SUMMARY | 2025-01-18 17:15 | XMS_ITS | Encounter Summary ---
Author Organization [email or web address] Address [address] [place] [address] 7 [place] [address] Care Team Providers Care Hospital Intern Name Role Phone Name, Beau FRANKS Primary Care Provider [phone] Reason for Visit * Reason Onset Date Comments Med Refill 12/11/2024 Encounter Details Date Type Department Care Team ([facility] st Contact Info) Description 12/11/2024 Telephone [facility] MEDICINE [address] [place], [place] [phone] Name, MD Beau [address] [place] [address] Med Refill Social History Tobacco Use Types [...] Base) MCG/ACT inhaler To be sent to: [id number] [facility] [address] [facility] Requesting more refills on script documented in this encounter Plan of Treatment Upcoming Encounters Date Type Department Care Team (Late st Contact Info) Description 04/20/2025 1:00 PM EST Office Visit [facility] OPTOMETRY [address] [place] [address] Alvin, Florecita, OD [address] [place] [address] documented as of this encounter Visit Diagnoses Not on filedocumented in this encounter Additional Health Concerns Assessment Noted Time PHQ-9 Depression Total Score: 25 025 11:48 AM EDT documented as of this encounter Care Teams Hospital Intern Relationship Specialty Start Date End Date Name, MD Beau [address] [place] [address] PCP - General Family Medicine 06/01/15 documented as of this encounter
--- OUTSIDE RECORDS SUMMARY | 2025-01-18 17:15 | XMS_ITS | Encounter Summary ---
Author Organization [employer] Address [address] [place] [address] 7t [place] [address] Care Team Providers Care Computer Training Specialist Name Role Phone Name, Beau FRANKS Primary Care Provider [phone] Bambi Jauregui Unavailable Mechelle Dumont RN Unavailable Unavailable Encounter Details Date Type Department Care Team ([facility] st Contact Info) Description 04/08/2023 Orders Only [facility] CHC MED & PEDS [address] [place], [place] [phone] Ekaterina Pappas LPN Social History Tobacco Use [...] Description 04/20/2025 1:00 PM EST Office Visit [facility] OPTOMETRY [address] [place], [place] [phone] Alvin, Florecita, OD [address] [place] [address] documented as of this encounter Visit Diagnoses Not on filedocumented in this encounter Additional Health Concerns Assessment Noted Time PHQ-9 Depression Total Score: 19 023 3:46 PM EDT documented as of this encounter Care Teams Computer Training Specialist Relationship Specialty Start Date End Date Name, MD Beau [address] [place] [address] PCP - General Family Medicine 06/01/15 Bambi Jauregui Community Health Worker 06/27/2309/14 Mechelle Dumont RN Nutrition Services Worker 06/27/23 09/15/23 documented as of this encounter
--- OUTSIDE RECORDS SUMMARY | 2025-01-18 17:15 | XMS_ITS | Encounter Summary ---
Author Organization [employer] Address [address] [place] [address] 7 [place] [address] Care Team Providers Care Brush Washer Name Role Phone Name, Beau FRANKS Primary Care Provider [phone] Bambi Jauregui Unavailable Mechelle Dumont RN Unavailable Unavailable Reason for Visit * Reason Onset Date Comments PT1 11/14/2022 Encounter Details Date Type Department Care Team ([facility] st Contact Info) Description 11/14/2022 Telephone [facility] MEDICINE [address] [place] [address] Name, MD Beau [address] [place] [address] PT1 Social History Tobacco Use Types Packs/Day [...] 10:01 AM EDT Allergy PT-1 Request Number [id number] is Pending Dr Salazar PT-1 Request Number [id number] is Pending Ortho PT-1 Request Number [id number] is Pending Pt has an active PT1 for [facility] * Telephone Encounter - Melva Ocampo - 11/14/2022 3:57 PM EDT PT1 Address verified Date: 11/20/22 Time: 2 pm Visits: Address: [address] [place] Facility: Allergy Injection Wheel Chair: n/a Fly Tier Needed: no PT1 Date: 12/05/22 Time: 11:30 am Visits: Address: [address] [place] Facility: Orthopedic Wheel Chair: n/a Fly Tier Needed: no PT1 Date: 12/07/22 Time: 11:15 am Visits: Address: [address] [place], [place] Facility: PCP Wheel Chair: n/a Fly Tier Needed: no PT1 Date: 12/07/22 Time: 2:30 pm Visits: Address: [address] [place] Facility: Dr. Salazar Wheel Chair: n/a Fly Tier Needed: no documented in this encounter Plan of Treatment Upcoming Encounters Date Type Department Care Team (Late st Contact Info) Description 04/20/2025 1:00 PM EST Office Visit [facility] OPTOMETRY [address] [place] [address] Florecita Esquivel, OD [address] [place] [address] documented as of this encounter Visit Diagnoses Not on filedocumented in this encounter Care Teams Brush Washer Relationship Specialty Start Date End Date Name, MD Beau [address] [place] [address] PCP - General Family Medicine 06/01/15 Bambi Jauregui Community Health Worker 06/27/2309/14 Mechelle Dumont, ISABEL Distributor Publications 06/27/23 09/15/23 documented as of this encounter
--- OUTSIDE RECORDS SUMMARY | 2025-01-18 17:15 | XMS_ITS | Encounter Summary ---
Author Organization [employer] Address [address] [place] [address] 7 [place] [address] Care Team Providers Care Synthetic Cloth Binding Cutter Name Role Phone Name, eBau FRANKS Primary Care Provider [phone] Bambi Jauregui Unavailable Mechlele Dumont RN Unavailable Unavailable Encounter Details Date Type Department Care Team (Late Contact Info) Description 02/28/2022 Orders Only [facility] CHC MED & PEDS [address] [place], [place] [phone] Kindra Woodall LPN Social History Tobacco Use [...] Description 04/20/2025 1:00 PM EST Office Visit [facility] OPTOMETRY [address] [place] [address] Alvin, Florecita, OD [address] [place] [address] documented as of this encounter Visit Diagnoses Not on filedocumented in this encounter Care Teams Synthetic Cloth Binding Cutter Relationship Specialty Start Date End Date Name, MD Beau 230 [place] [address] PCP - General Family Medicine 06/01/15 Bambi Jauregui Community Health Worker 06/27/2309/14 Mechelle Dumont RN Headrig Sawyer 06/27/23 09/15/23 documented as of this encounter
--- OUTSIDE RECORDS SUMMARY | 2025-01-18 17:15 | XMS_ITS | Encounter Summary ---
Author Organization [email or web address] Address [address] [place] [address] 7 [place] [address] Care Team Providers Care Director Consumer Affairs Name Role Phone Name, Beau FRANKS Primary Care Provider [phone] Reason for Visit * Reason Comments Med Refill Encounter Details Date Type Department Care Team ([facility] st Contact Info) Description 01/12/2025 Refill [facility] MEDICINE [address] [place], [place] [phone] Name, MD Beau [address] [place] [address] Asthma, unspecified asthma severity, unspecified whether complicated, [...] Description 04/20/2025 1:00 PM EST Office Visit [facility] OPTOMETRY [address] [place] [address] Alvin, Florecita, OD [address] [place] [address] documented as of this encounter Visit Diagnoses Diagnosis Asthma, unspecified asthma severity, unspecified whether complicated, unspecified whether persistent documented in this encounter Additional Health Concerns Assessment Noted Time PHQ-9 Depression Total Score: 25 025 11:48 AM EDT documented as of this encounter Care Teams Director Consumer Affairs Relationship Specialty Start Date End Date Name, MD Beau [address] [place] [address] PCP - General Family Medicine 06/01/15 documented as of this encounter
--- OUTSIDE RECORDS SUMMARY | 2025-01-18 17:15 | XMS_ITS | Encounter Summary ---
Author Organization [employer] Address [address] [place] [address] 7 [place] [address] Care Team Providers Care Car Oiler Name Role Phone Name, Beau FRANKS Primary Care Provider [phone] Bambi Jauregui Unavailable Mechelle Dumont RN Unavailable Unavailable Reason for Visit * Reason Comments Med Refill Encounter Details Date Type Department Care Team ([facility] st Contact Info) Description 06/13/2023 Refill [facility] MEDICINE [address] [place] [address] Name, MD Beau [address] [place] [address] Asthma, unspecified asthma severity, unspecified whether complicated, [...] Description 04/20/2025 1:00 PM EST Office Visit [facility] OPTOMETRY [address] [place] [address] Florecita Esquivel, OD 230 [place] [address] documented as of this encounter Visit Diagnoses Diagnosis Asthma, unspecified asthma severity, unspecified whether complicated, unspecified whether persistent documented in this encounter Additional Health Concerns Assessment Noted Time PHQ-9 Depression Total Score: 19 023 3:46 PM EDT documented as of this encounter Care Teams Car Oiler Relationship Specialty Start Date End Date Name, MD Beau [address] [place] [address] PCP - General Family Medicine 06/01/15 Bambi Jauregui Community Health Worker 06/27/2309/14 Mechelle Dumont RN Fish Egg Packer 06/27/23 09/15/23 documented as of this encounter
--- OUTSIDE RECORDS SUMMARY | 2025-01-18 17:15 | XMS_ITS | Encounter Summary ---
Author Organization [employer] Address [address] [place] [address] 7 [place] [address] Care Team Providers Care Dog Show Judge Name Role Phone Name, Beau FRANKS Primary Care Provider [phone] Reason for Visit * Reason Comments Med Refill Encounter Details Date Type Department Care Team ([facility] st Contact Info) Description 12/12/2024 Refill [facility] MEDICINE [address] [place], [place] [phone] Name, MD Beau [address] [place] [address] Asthma, unspecified asthma severity, unspecified whether complicated, [...] Description 04/20/2025 1:00 PM EST Office Visit [facility] OPTOMETRY [address] [place] [address] Alvin, Florecita, OD 230 [place] [address] documented as of this encounter Visit Diagnoses Diagnosis Asthma, unspecified asthma severity, unspecified whether complicated, unspecified whether persistent documented in this encounter Additional Health Concerns Assessment Noted Time PHQ-9 Depression Total Score: 25 025 11:48 AM EDT documented as of this encounter Care Teams Dog Show Judge Relationship Specialty Start Date End Date Name, MD Beau [address] [place] [address] PCP - General Family Medicine 06/01/15 documented as of this encounter
--- OUTSIDE RECORDS SUMMARY | 2025-01-18 17:15 | XMS_ITS | Encounter Summary ---
Author Organization [employer] Address [address] [place] [address] 7 [place] [address] Care Team Providers Care Map Maker Name Role Phone Name, Beau FRANKS Primary Care Provider [phone] Reason for Visit * Reason Comments Med Refill Encounter Details Date Type Department Care Team ([facility] st Contact Info) Description 10/21/2024 Refill [facility] MEDICINE [address] [place], [place] [phone] Felecia Gunderson NP [address] [place] [address] Asthma, unspecified asthma severity, unspecified whether complicated, [...] Description 04/20/2025 1:00 PM EST Office Visit [facility] OPTOMETRY [address] [place] [address] Alvin, Florecita, OD [address] [place] [address] documented as of this encounter Visit Diagnoses Diagnosis Asthma, unspecified asthma severity, unspecified whether complicated, unspecified whether persistent documented in this encounter Additional Health Concerns Assessment Noted Time PHQ-9 Depression Total Score: 24 024 3:46 PM EST documented as of this encounter Care Teams Map Maker Relationship Specialty Start Date End Date Name, MD Beau [address] [place] [address] PCP - General Family Medicine 06/01/15 documented as of this encounter
--- OUTSIDE RECORDS SUMMARY | 2025-01-18 17:15 | XMS_ITS | Encounter Summary ---
Author Organization [employer] Address [address] [place] [address] 7 [place] [address] Care Team Providers Care Energy Scheduler Name Role Phone Name, Beau FRANKS Primary Care Provider [phone] Bambi Jauregui Unavailable Mechelle Dumont RN Unavailable Unavailable Reason for Visit * Reason Comments Med Refill Encounter Details Date Type Department Care Team ([facility] st Contact Info) Description 06/10/2023 Refill [facility] MEDICINE [address] [place] [address] Name, MD Beau [address] [place] [address] Asthma, unspecified asthma severity, unspecified whether complicated, [...] Description 04/20/2025 1:00 PM EST Office Visit [facility] OPTOMETRY [address] [place] [address] Florecita Esquivel, OD [address] [place] [address] documented as of this encounter Visit Diagnoses Diagnosis Asthma, unspecified asthma severity, unspecified whether complicated, unspecified whether persistent documented in this encounter Additional Health Concerns Assessment Noted Time PHQ-9 Depression Total Score: 19 023 3:46 PM EDT documented as of this encounter Care Teams Energy Scheduler Relationship Specialty Start Date End Date Name, MD Beau [address] [place] [address] PCP - General Family Medicine 06/01/15 Bambi Jauregui Community Health Worker 06/27/2309/14 Mechelle Dumont RN Laminator Hand 06/27/23 09/15/23 documented as of this encounter
--- OUTSIDE RECORDS SUMMARY | 2025-01-18 17:15 | XMS_ITS | Clinical Summary ---
Author Organization [employer] Address [address] [place] [address] 7t [place] [address] Care Team Providers Care Enginehouse Brakeman Name Role Phone Name, Beau FRANKS Primary Care Provider [phone] Allergies Active Allergy Reactions Criticality Noted Date [...] 24 Active UltiCare Insulin Syringe 30G X 07/10 1 ML miscIndications :Diabetes mellitus type 2 [...] 07/24/19 25 Active lisinopril (Zestril) 30 MG tabletIndicatio ns:GONZALEZ (dyspnea on exertion),Edema , unspecified type Take 1 tablet (30 mg) [...] DAILY 180 capsule 1 09/30/19 25 Active gabapentin (Neurontin) 300 MG capsuleIndicati ons: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 (HCC) [...] NEEDED 18 g 1 12/15/19 25 Active albuterol (2.5 MG/3ML) 0.083% nebulizer solutionIndicat ions:Asthma, unspecified asthma severity, unspecified whether complicated, unspecified whether persistent USE 3 ML VIA NEBULIZER EVERY MORNING AND EVERY AFTERNOON AND EVERY NIGHT AT BEDTIME 90 mL 1 01/07/20 25 Active ketoconazole (NIZOral) 2 % shampooIndicati ons:Seborrheic dermatitis APPLY TOPICALLY 2 TIMES A WEEK 120 mL 2 01/07/20 25 Active ketoconazole (NIZOral) 2 % shampooIndicati ons:Seborrheic dermatitis APPLY TOPICALLY 2 TIMES A WEEK 120 mL 2 10/09/19 25 025 Discontinued albuterol (2.5 MG/3ML) 0.083% nebulizer solutionIndicat ions:Asthma, unspecified asthma severity, unspecified whether complicated, unspecified whether persistent USE 3 ML VIA NEBULIZER EVERY MORNING AND EVERY AFTERNOON AND EVERY NIGHT AT BEDTIME 90 mL 1 10/29/19 25 025 Discontinued Active Problems Problem Noted Date Diagnosed Date Acid reflux 11/19/2024 Overview (11/19/2024): Continue to avoid culprits, PPI Acute hypoxemic respiratory failure (CMS/HCC) Lumbar radiculopathy, chronic 11/19/2024 Cirrhosis (CMS/HCC) 11/19/2024 [...] it until Saturday when he will see benefit director, as much as possible, I gave him [...] dx Stage 3a chronic kidney disease (CKD) ([facility]) 11/06/2022 Periodontal disease 07/03/2022 Dental caries 07/03/2022 [...] Encounters Date Type Department Care Team Description 01/14/2025 Telephone [facility] MEDICINE [address] [place] [address] Beau Stewart MD Med Refill 01/12/2025 Refill [facility] MEDICINE [address] [place] [address] Beau Stewart MD Asthma, unspecified asthma severity, unspecified whether complicated, unspecified whether persistent 01/11/2025 Orders Only GENERIC EXTERNAL DATA DEPARTMENT Provider, Generic External Data 01/05/2025 Refill [facility] MOBILE VACCINE CLINIC [address] [place] [address] Beau Stewart MD Asthma, unspecified asthma severity, unspecified whether complicated, unspecified whether persistent; Seborrheic dermatitis 12/12/2024 Refill [facility] MEDICINE [address] [place] [address] Beau Stewart MD Asthma, unspecified asthma severity, unspecified whether complicated, unspecified whether persistent 12/11/2024 Telephone [facility] MEDICINE [address] [place] [address] Beau Stewart MD Med Refill 12/08/2024 Refill [facility] [address] [place] [address] Beau Stewart MD Asthma, unspecified asthma severity, unspecified whether complicated, unspecified whether persistent 11/25/2024 Refill [facility] [address] [place] [address] Beau Stewart MD Asthma, unspecified asthma severity, unspecified whether complicated, unspecified whether persistent 11/19/2024 11:30 AM EDT Office Visit [facility] MED[facility] [address] [place] [phone] Beau Stewart MD Heart failure with preserved ejection fraction, unspecified HF chronicity ([facility]) (Primary Dx); Type 2 diabetes mellitus with other specified complication, with long-term current use of insulin ([facility]); Anemia, unspecified type; Depression, unspecified depression type 11/19/2024 Orders Only GENERIC EXTERNAL DATA DEPARTMENT Provider, Generic External Data 11/19/2024 Travel 11/18/2024 Telephone [facility] [address] [place] [phone] Beau Stewart MD CHARTPREP 11/18/2024 Telephone [facility] [address] [place] [phone] Beau Stewart MD Durable Medical Equipment 11/01/2024 Refill [facility] [address] [place] [phone] Beau Stewart MD 10/28/2024 Telephone [facility] [address] [place] [phone] Beau Stewart MD Med Refill 10/28/2024 Refill [facility] [address] [place] [phone] Felecia Gunderson NP Asthma, unspecified asthma severity, unspecified whether complicated, unspecified whether persistent 10/27/2024 Refill [facility] [address] [place] [address] Yudy Linn NP Asthma, unspecified asthma severity, unspecified whether complicated, unspecified whether persistent; Polyneuropathy due to type 2 diabetes mellitus ([facility]) 10/27/2024 Refill [facility] [address] [place] [phone] Beau Stewart MD Polyneuropathy due to type 2 diabetes mellitus ([facility]) 10/21/2024 Refill [facility] MED[facility] [address] [place] [address] Felecia Gunderson NP Asthma, unspecified asthma severity, [...] 11/19/2024 11:39 AM EDT Plan of Treatment Upcoming Encounters Date Type Department Care Team (Late st Contact Info) Description 04/20/2025 1:00 PM EST Office Visit [facility] OPTOMETRY [address] [place] [address] Alvin, Florecita, OD [address] [place] [address] Health Maintenance Due Date Last Done Comments CT Colonography 1970 Dental Prophylaxis 1970 FIT DNA/Cologuard 1970 FIT 1970 FOBT 1970 HIV Screening 1970 Sigmoidoscopy 1970 Pneumococcal Vaccine: 50+ Years (2 of 2 - PCV) 01/07/1998 01/07/1997 Hepatitis B Vaccines (3 of 3 - 19+ 3-dose series) 08/12/2012 06/17/2012, 11/23/2011 RSV Patients and Patients Aged 60 years or older (1 - Risk 50-74 years 1-dose series) 01/22/2020 Zoster Vaccines (1 of 2) 01/22/2020 Dental [...] Td or Tdap) 07/04/2031 07/03/2021, 01/02/2016, 09/23/1996 Hepatitis A Vaccines Completed 06/17/2012, 11/23/19 12 [...] on patient's age to complete this topic Goals Goal Patient Goal Type Associated Problems [...] has chronic kidney disease No Brad Luna Procedures Procedure Name Priority Date/Time Associated Diagnosis Comments PSA, TOTAL Routine 01/11/2025 3:30 PM EST GLUCOSE, WHOLE BLOOD Routine 11/19/2024 2:14 PM EDT POCT GLYCATED HEMOGLOBIN, TOTAL Routine 11/19/2024 11:42 AM EDT Type 2 diabetes mellitus with other specified complication, with long-term current use of insulin ([facility]) POCT GLUCOSE Routine 11/19/2024 11:40 AM EDT Type 2 diabetes mellitus with other specified complication, with long-term current use of insulin ([facility]) PROTEIN CREATININE RATIO, URINE Routine 10/14/2024 1:50 PM EDT LIPID PANEL, STANDARD Routine 07/07/2024 [...] Recently Relevant to Health Maintenance Results * PSA,Total (01/11/2025 3:30 PM EST) Prostate Specific Antigen 0.32 <0.05 - 4.0 ng/mL [facility] Comment:PSA methodology: Abb michelle Aliabenaty i ChemiluminescentMicroparticle Immunoassay (CMIA) 01/11/2025 3:30 PM EST 01/11/2025 3:30 PM EST us Generic External Data Provider LAB BLOOD ORDERAB LES Final Result Performing Organization Address [facility]/ZIP Co de Phone Number [facility] [address] [place] [address] [phone] * (ABNORMAL) Glucose, Whole Blood (11/19/2024 2:14 PM EDT) Glucose, Whole Blood 267(H) 60 - 115 mg/dL [facility] Comment:METER #: [id number] Testing performed in the Endocrinology Department [address] , [address], [facility]. 11/19/2024 2:14 PM EDT 11/19/2024 2:20 PM EDT us Generic External Data Provider LAB BLOOD ORDERAB LES Final Result [facility] [address] [place] [address] [phone] * (ABNORMAL) POCT Hgb A1c (11/19/2024 [...] 1:50 PM EDT) Creatinine, Urine 37.57 mg/dL [facility] Protein, Total, Random Urine <7 <12 mg/dL [facility] Protein/Creatin ine Ratio, Ur TNP <0.2 [facility] Comment:Unable to calculate urine protein creatinine ratio due tolow creatinine or protein result. 10/14/2024 1:50 PM EDT 10/14/2024 2:23 PM EDT Generic External Data Provider LAB URINE ORDERAB LES Final Result Performing Organization Address City/[facility]/ZIP Co de Phone Number [facility] [address] [place] [address] [phone] * (ABNORMAL) Lipid Panel, Standard (07/07/2024 3:17 PM EDT) Triglycerides 195(H) <150 mg/dL [facility] Comment:Desirable Triglyceri de: less than 150 mg/dLBorderline High Triglyceride 150-199 mg/dLHigh Triglyceride: 200-499 mg/dLVery High Triglyceride: greater than or equal to 5OO mg/dL Cholesterol 128 <200 mg/dL [facility] Comment:Desirable Cholestero l: less than 200 mg/dLBorderline High Cholesterol: 200-239 mg/dLHigh Cholesterol: greater than 239 mg/dL LDL Cholesterol Calculated 53 <100 mg/dL [facility] Comment:Desirable LDL: less than 100 mg/dLNear Optimal/Above Optimal LDL: 110- 129 mg/dLBorderline High LDL: 130-159 mg/dLHigh LDL: 160-189 mg/dLVery High LDL: greater than or equal to 190 mg/dL HDL Cholesterol 36(L) >40 mg/dL [facility] Comment:Desirable HDL: great er than 40 mg/dL Note: This HDL assay may give artificially low results in patients with liver disease. 07/07/2024 3:17 PM EDT 07/07/2024 3:17 PM EDT us Generic External Data Provider LAB BLOOD ORDERAB LES Final Result Performing Organization Address [facility]/ZIP Co de Phone Number [facility] [address] [place] [phone] * Hepatitis C Antibody with Reflex to HCV, RNA, Quantitative, Real-Time PCR (11/06/2023 3:26 PM EDT) Hepatitis C Antibody Nonreactive Nonreactive [facility] Comment:Antibodies to HCV no t detected; does not exclude early acuteHCV infection. Blood Venous blood specimen / Unknown 11/06/2023 3:26 PM EDT 11/06/2023 3:58 PM EDT Beau Stewart MD LAB BLOOD ORDERABLES Final Resul t [facility] [address] [place] [address] [phone] * Colonoscopy (06/09/2020 2:16 PM EDT) Colonoscopy Normal Normal Narrative Radha Aviles - 06/09/2020 2:16 PM EDT Recommended 10 year follow up ([facility]) us Historical Provider MD HEALTH MAINTENANCE Final Result from Last 3 Months or Most Recently Relevant to Health Maintenance Additional Health Concerns Active Problems Noted Date Diagnosed Date Help patients manage their type 2 diabetes 01/14 Weekly blood pressure task 01/14/2025 Help patients manage their type 2 diabetes 01/14 Patient has chronic kidney disease 01/14/2025 Weekly blood pressure task 01/14/2025 Patient has chronic kidney disease 01/14/2025 Insurance [facility] [place] STAND ADULT Care Teams Enginehouse Brakeman Relationship Specialty Start Date End Date Name, MD Beau [address] [place] [phone] PCP - General Family Medicine 06/01/15
--- OUTSIDE RECORDS SUMMARY | 2025-01-18 17:15 | XMS_ITS | Encounter Summary ---
Author Organization [employer] Address [address] [place] [address] 7 [place] [address] Care Team Providers Care Material Expeditor Name Role Phone Name, Beau FRANKS Primary Care Provider [phone] Bambi Jauregui Unavailable Mechelle Dumont RN Unavailable Unavailable Encounter Details Date Type Department Care Team (Late st Contact Info) Description 03/02/2022 Orders Only [facility] MEDICINE [address] [place] [address] Lelia Moeller, ISABEL Social History Tobacco Use Types Packs/Day Years [...] Description 04/20/2025 1:00 PM EST Office Visit [facility] OPTOMETRY [address] [place], [place] [phone] AlvinFlorecita holloway, OD [address] [place] [address] documented as of this encounter Visit Diagnoses Not on filedocumented in this encounter Care Teams Material Expeditor Relationship Specialty Start Date End Date Name, MD Beau [address] [place] [address] PCP - General Family Medicine 06/01/15 Bambi Jauregui Community Health Worker 06/27/2309/14 Mechelle Dumont RN Supervisor Fishing 06/27/23 09/15/23 documented as of this encounter
--- OUTSIDE RECORDS SUMMARY | 2025-01-18 17:15 | XMS_ITS | Encounter Summary ---
Author Organization [employer] Address [address] [place] [address] 7 [place] [address] Care Team Providers Care Dance Therapist Name Role Phone Name, Beau FRANKS Primary Care Provider [phone] Reason for Visit * Reason Comments Med Refill Encounter Details Date Type Department Care Team ([facility] st Contact Info) Description 11/25/2024 Refill [facility] MEDICINE [address] [place], [place] [phone] Name, MD Beau [address] [place] [address] Asthma, unspecified asthma severity, unspecified whether complicated, [...] Description 04/20/2025 1:00 PM EST Office Visit [facility] OPTOMETRY [address] [place] [address] Alvin, Florecita, OD [address] [place] [address] documented as of this encounter Visit Diagnoses Diagnosis Asthma, unspecified asthma severity, unspecified whether complicated, unspecified whether persistent documented in this encounter Additional Health Concerns Assessment Noted Time PHQ-9 Depression Total Score: 25 025 11:48 AM EDT documented as of this encounter Care Teams Dance Therapist Relationship Specialty Start Date End Date Name, MD Beau [address] [place] [address] PCP - General Family Medicine 06/01/15 documented as of this encounter
--- OUTSIDE RECORDS SUMMARY | 2025-01-18 17:15 | XMS_ITS | Encounter Summary ---
Author Organization [employer] Address [address] [place] [address] 7 [place] [address] Care Team Providers Care Bulk Station Agent Name Role Phone Name, Beau FRANKS Primary Care Provider [phone] Bambi Jauregui Unavailable Mechelle Dumont RN Unavailable Unavailable Encounter Details Date Type Department Care Team (Late Contact Info) Description 03/26/2022 Orders Only [facility] CH[facility] MED & PEDS [address] [place], [place] [phone] Kindra Woodall LPN Social History Tobacco Use [...] Office Visit [facility] OPTOMETRY [address] [place] [address] Alvin, Florecita, OD [address] [place] [address] documented as of this encounter Visit Diagnoses Not on filedocumented in this encounter Care Teams Bulk Station Agent Relationship Specialty Start Date End Date Name, MD Beau [address] [place] [address] PCP - General Family Medicine 06/01/15 Bambi Jauregui Community Health Worker 06/27/2309/14 Mechelle Dumont RN Front Office Specialist 06/27/23 09/15/23 documented as of this encounter
--- OUTSIDE RECORDS SUMMARY | 2025-01-18 17:15 | XMS_ITS | Encounter Summary ---
Author Organization [employer] Address [address] [place] [address] 7 [place] [address] Care Team Providers Care Manager Of Information Name Role Phone Name, Beau FRANKS Primary Care Provider [phone] Bambi Jauregui Unavailable Mechelle Dumont RN Unavailable Unavailable Reason for Visit * Reason Comments Med Refill Encounter Details Date Type Department Care Team ([facility] st Contact Info) Description 02/21/2023 Refill [facility] MEDICINE [address] [place] [address] Name, MD Beau [address] [place] [address] Chronic pain syndrome Social History Tobacco Use [...] Description 04/20/2025 1:00 PM EST Office Visit [facility] OPTOMETRY [address] [place] [address] Alvin, Florecita, OD [address] [place] [address] documented as of this encounter Visit Diagnoses Diagnosis Chronic pain syndrome documented in this encounter Additional Health Concerns Assessment Noted Time PHQ-9 Depression Total Score: 19 023 3:46 PM EDT documented as of this encounter Care Teams Manager Of Information Relationship Specialty Start Date End Date Name, MD Beau [address] [place] [address] PCP - General Family Medicine 06/01/15 Bambi Jauregui Community Health Worker 06/27/2309/14 Mechelle Dumont RN Ski Guide 06/27/23 09/15/23 documented as of this encounter
--- OUTSIDE RECORDS SUMMARY | 2025-01-18 17:15 | XMS_ITS | Encounter Summary ---
Author Organization [employer] Address [address] [place] [address] [address] [place] [address] Care Team Providers Care Flower Buncher Or Picker Name Role Phone Name, Beau FRANKS Primary Care Provider [phone] Bambi Jauregui Unavailable Mechelle Dumont RN Unavailable Unavailable Encounter Details Date Type Department Care Team (Late st Contact Info) Description 03/07/2022 Orders Only [facility] MEDICINE [address] [place] [address] Ekaterina Pappas LPN Social History Tobacco Use [...] Description 04/20/2025 1:00 PM EST Office Visit [facility] OPTOMETRY [address] [place] [address] Florecita Esquivel, OD [address] [place] [address] documented as of this encounter Visit Diagnoses Not on filedocumented in this encounter Care Teams Flower Buncher Or Picker Relationship Specialty Start Date End Date Name, MD Beau [address] [place] [address] PCP - General Family Medicine 06/01/15 Bambi Jauregui Community Health Worker 06/27/2309/14 Mechelle Dumont, ISABEL Respiratory Scientist 06/27/23 09/15/23 documented as of this encounter
--- OUTSIDE RECORDS SUMMARY | 2025-01-18 17:15 | XMS_ITS | Encounter Summary ---
Author Organization [employer] Address [address] [place] [address] [address]t [place] [address] Care Team Providers Care Inkjet Operator Name Role Phone Name, Beau FRANKS Primary Care Provider [phone] Bambi Jauregui Unavailable Mechelle Dumont RN Unavailable Unavailable Reason for Visit * Reason Comments Med Refill Encounter Details Date Type Department Care Team ([facility] st Contact Info) Description 01/31/2023 Refill [facility] CHC MED & PEDS [address] [place], [place] [phone] Name, MD Beau [address] [place] [address] Asthma, unspecified asthma severity, unspecified whether complicated, [...] 04/20/2025 1:00 PM EST Office Visit [facility] OPTOMETRY [address] [place] [address] Florecita Esquivel, OD [address] [place] [address] documented as of this encounter Visit Diagnoses Diagnosis Asthma, unspecified asthma severity, unspecified whether complicated, unspecified whether persistent documented in this encounter Additional Health Concerns Assessment Noted Time PHQ-9 Depression Total Score: 19 023 3:46 PM EDT documented as of this encounter Care Teams Inkjet Operator Relationship Specialty Start Date End Date Name, MD Beau [address] [place] [address] PCP - General Family Medicine 06/01/15 Bambi Jauregui Community Health Worker 06/27/2309/14 Mechelle Dumont RN Seam Sewer 06/27/23 09/15/23 documented as of this encounter
--- OUTSIDE RECORDS SUMMARY | 2025-01-18 17:15 | XMS_ITS | Encounter Summary ---
Author Organization [employer] Address [address] [place] [address] 7t [place] [address] Care Team Providers Care Site Supervising Technical Operator Name Role Phone Name, Beau FRANSK Primary Care Provider Bambi Jauregui Unavailable Mechelle Dumont RN Unavailable Unavailable Encounter Details Date Type Department Care Team (Late st Contact Info) Description 07/02/2022 Orders Only [facility] MEDICINE [address] [place], [place] [phone] Ekaterina Pappas LPN Social History Tobacco Use [...] Description 04/20/2025 1:00 PM EST Office Visit [facility] OPTOMETRY [address] [place], [place] [phone] Florecita Esquivel, OD [address] [place] [address] documented as of this encounter Visit Diagnoses Not on filedocumented in this encounter Care Teams Site Supervising Technical Operator Relationship Specialty Start Date End Date Name, MD Beau [address] [place] [address] PCP - General Family Medicine 06/01/15 Bambi Jauregui Community Health Worker 06/27/2309/14 Mechelle Dumont RN Analytics Manager 06/27/23 09/15/23 documented as of this encounter
== END 2025-01-18 13:46 | disposition home or self-care (01) ==
LOC: HO.ENCR 12:54
PROVIDERS: PCP Internal Medicine Geriatric Medicine; Visit Provider Registered Nurse Diabetes Educator
DX: E11.42 Type 2 diabetes mellitus with diabetic polyneuropathy (principal); Z79.4 Long term (current) use of insulin

== ENCOUNTER → 2025-01-18 12:54 | Outpatient (BNVA) | payer MEDICAID, SELFPAY | PROVIDERS: PCP Internal Medicine Geriatric Medicine; Visit Provider Registered Nurse Diabetes Educator | DX: E11.42 Type 2 diabetes mellitus with diabetic polyneuropathy (principal); Z79.4 Long term (current) use of insulin | CPT/HCPCS: 99211 ==

== ENCOUNTER 2025-02-10 15:48 | Outpatient (REF) | payer MEDICAID, SELFPAY ==
--- NOTE | ~2025-02-10 | XR_ITS ---
EXAMINATION: XR CHEST CLINICAL INFORMATION: increasing productive cough and SOB ? pneumonia COMPARISON: Previous chest x-ray July 2024 TECHNIQUE: 2 views of the chest were obtained. FINDINGS: No significant abnormality is noted involving the heart, lungs, mediastinum, bony thorax or soft tissues. There are degenerative changes of the spine. XR/XR chest 2V IMPRESSION: No evidence for acute disease in the chest. Electronically signed by: Cristal Acosta MD 02/10/2025 04:43 PM LACHELLE
--- OUTSIDE RECORDS SUMMARY | 2025-02-10 11:00 | XMS_ITS | Encounter Summary ---
Author Organization [employer] Address [address] [place] [address] 7 [place] [address] Care Team Providers Care Asphalt Paving Machine Operator Name Role Phone Name, Beau FRANKS Primary Care Provider [phone] Reason for Visit * Reason Comments sick Encounter Details Date Type Department Care Team ([facility] st Contact Info) Description 02/10/2025 11:00 AM EST Office Visit [facility] MED[facility] [address] [place] [address] Sarina Donato FNP [address] [place] [address] SOB (shortness of breath) (Primary Dx); Sore [...] Description 02/17/2025 11:30 AM EST Clinical Support [facility] MED[facility] [address] [place] [address] 04/20/2025 1:00 PM EST Office Visit [facility] OPTOMETRY [address] [place] [address] Florecita Esquivel, OD [address] [place] [address] 04/26/2025 3:30 PM EST Office Visit [facility] MED[facility] [address] [place] [address] Name, MD Beau [address] [place] [address] Scheduled Orders Name Type Priority Associated Diagnoses [...] PM EST Narrative 02/10/2025 4:45 PM EST [address] [address] XRay Report Signed Patient: Manjit May MR#: [id number] 58 : 1970 Acct:[id number] Age/Sex: 55 / M ADM Date: 02/10/25 Loc: .HHCX Attending Dr: Sarina GREEN Ordering Physician: Sarina Donato Date of Service: 02/10/25 Procedure(s): XR chest 2V Accession Number(s): [id number] cc: Name,Beau FRANKS; Sarina Donato Reason for [...] 02/10/25 1643 DD/ 1630 TD/TT: 02/10/25 1631 Material Handling Technician: NICOLAS Procedure Note Donotuseinterpreter, Image - 02/10/[address] [address] XRay Report Signed Patient: Manjit May AMR#: [id number] 58 : 1970Acct:[id number] Age/Sex: 55 / MADM Date: 02/10/25 Loc: HO.HHCX Attending Dr: Sarina GREEN Ordering Physician: Sarina Donato Date of Service: 02/10/25 Procedure(s): XR chest 2V Accession Number(s): [id number] cc: Name,Beau FRANKS; Sarina Donato Reason for [...] 02/10/25 1643 DD/ 1630 TD/TT: 02/10/25 1631 Material Handling Technician: NICOLAS Sarina GREEN IMG XR PROCEDURES Final Result * POCT Rapid Influenza B LUDWIG ID NOW (02/10/2025 11:01 AM EST) [facility] Influenza B Negative Negative, Indeterminate [facility] QC Media Lot # [id number] [facility] Lot# Expiration Date , [facility] Swab 02/10/2025 11:0 1 AM EST Sarina GREEN POINT OF CARE TEST ENTER/EDIT ORDERABLES Final Result [facility] [address] [place] [phone] * POCT Rapid Influenza A LUDWIG ID NOW (02/10/2025 11:00 AM EST) [facility] Influenza A Negative Negative, Indeterminate [facility] QC Media Lot # [id number] [facility] Lot# Expiration Date [facility] Swab 02/10/2025 11:0 0 AM EST Sarina [employer] CYLINDER HEAD ASSEMBLER POINT OF CARE TEST ENTER/EDIT ORDERABLES Final Result [facility] [address] [place] [phone] * POCT Rapid Covid-19 BinaxNOW (02/10/2025 10:59 AM EST) [facility] Rapid COVID Ag Negative QC Media Lot # [id number] Lot# Expiration Date Swab 02/10/2025 10:5 9 AM EST Sarina [employer] [facility] POINT OF CARE TEST ENTER/EDIT ORDERABLES Final Result * POCT Rapid Strep A LUDWIG ID NOW (02/10/2025 10:54 AM EST) [facility] Rapid Strep A Screen Negative Negative, None Detected QC Media Lot # [id number] Lot# Expiration Date Swab 02/10/2025 10:5 4 AM EST Sarina [employer] CYLINDER HEAD ASSEMBLER POINT OF CARE TEST ENTER/EDIT ORDERABLES Edited [...] documented as of this encounter Care Teams Asphalt Paving Machine Operator Relationship Specialty Start Date End Date Name, MD Beau [address] [place] [address] PCP - General Family Medicine 06/01/15 documented as of this encounter
--- OUTSIDE RECORDS SUMMARY | 2025-02-10 20:40 | XMS_ITS | Encounter Summary ---
Author Organization [employer] Address [address] [place] [address] 7 [place] [address] Care Team Providers Care Package Drier Name Role Phone Name, Beau FRANKS Primary Care Provider [phone] Reason for Visit * Reason Comments Med Refill Encounter Details Date Type Department Care Team ([facility] st Contact Info) Description 01/12/2025 Refill [facility]INE [address] [place], [place] [phone] Name, MD Beau [address] [place] [address] Asthma, unspecified asthma severity, unspecified whether complicated, [...] Description 02/17/2025 11:30 AM EST Clinical Support [facility] [address] [place] [address] 04/20/2025 1:00 PM EST Office Visit [facility] OPTOMETRY [address] [place] [address] Alvin, Florecita, OD [address] [place] [address] 04/26/2025 3:30 PM EST Office Visit [facility] [address] [place] [address] Beau Stewart MD [address] [place] [address] documented as of this encounter Visit Diagnoses Diagnosis Asthma, unspecified asthma severity, unspecified whether complicated, unspecified whether persistent documented in this encounter Additional Health Concerns Assessment Noted Time PHQ-9 Depression Total Score: 25 025 11:48 AM EDT documented as of this encounter Care Teams Package Drier Relationship Specialty Start Date End Date Beau Stewart MD [address] [place] [address] PCP - General Family Medicine 06/01/15 documented as of this encounter
--- OUTSIDE RECORDS SUMMARY | 2025-02-10 20:40 | XMS_ITS | Encounter Summary ---
Author Organization [employer] Address [address] [place] [address] 7 [place] [address] Care Team Providers Care Senior Software Analyst Name Role Phone Name, Beau FRANKS Primary Care Provider [phone] Reason for Visit * Reason Comments Med Refill Encounter Details Date Type Department Care Team ([facility] st Contact Info) Description 11/25/2024 Refill [facility] MEDICINE [address] [place], [place] [phone] Name, MD Beau [address] [place] [address] Asthma, unspecified asthma severity, unspecified whether complicated, [...] Description 02/17/2025 11:30 AM EST Clinical Support [facility] MEDICINE [address] [place] [address] 04/20/2025 1:00 PM EST Office Visit [facility] OPTOMETRY [address] [place] [address] Alvin, Florecita, OD [address] [place] [address] 04/26/2025 3:30 PM EST Office Visit [facility] MEDICINE [address] [place] [phone] Beau Stewart MD [address] [place] [phone] documented as of this encounter Visit Diagnoses Diagnosis Asthma, unspecified asthma severity, unspecified whether complicated, unspecified whether persistent documented in this encounter Additional Health Concerns Assessment Noted Time PHQ-9 Depression Total Score: 25 025 11:48 AM EDT documented as of this encounter Care Teams Senior Software Analyst Relationship Specialty Start Date End Date Beau Stewart MD [address] [place] [phone] PCP - General Family Medicine 06/01/15 documented as of this encounter
--- OUTSIDE RECORDS SUMMARY | 2025-02-10 20:40 | XMS_ITS | Encounter Summary ---
Author Organization [employer] Address [address] [place] [address] [address] [place] [address] Care Team Providers Care Radiology Teacher Name Role Phone Name, Beau FRANKS Primary Care Provider [phone] Reason for Visit * Reason Comments Med Refill Encounter Details Date Type Department Care Team ([facility] st Contact Info) Description 10/18/2023 Refill [facility] MED[facility]INE [address] [place], [place] [phone] Chiquis Harris MD [address] [place] [address] Iron deficiency Social History Tobacco Use Types [...] Description 02/17/2025 11:30 AM EST Clinical Support [facility] MEDICINE [address] [place] [address] 04/20/2025 1:00 PM EST Office Visit [facility] OPTOMETRY [address] [place] [address] Alivn, Florecita, OD [address] [place] [address] 04/26/2025 3:30 PM EST Office Visit [facility] MEDICINE [address] [place] [address] NameBeau MD [address] [place] [phone] documented as of this encounter Visit Diagnoses Diagnosis Iron deficiency Disorders of iron metabolism documented in this encounter Additional Health Concerns Assessment Noted Time PHQ-9 Depression Total Score: 19 023 3:46 PM EDT documented as of this encounter Care Teams Radiology Teacher Relationship Specialty Start Date End Date NameBeau MD [address] [place] [phone] PCP - General Family Medicine 06/01/15 documented as of this encounter
--- OUTSIDE RECORDS SUMMARY | 2025-02-10 20:40 | XMS_ITS | Encounter Summary ---
Author Organization [employer] Address [address] [place] [address] 7 [place] [address] Care Team Providers Care Public Health Representative Name Role Phone Name, Beau FRANKS Primary Care Provider [phone] Reason for Visit * Reason Onset Date Comments Nurse Triage 02/08/2025 Encounter Details Date Type Department Care Team ([facility] st Contact Info) Description 02/08/2025 Telephone [facility] MED[facility]INE [address] [place], [place] [phone] Name, MD Beau 230 [place] [address] Nurse Triage Social History Tobacco Use Types [...] encounter Miscellaneous Notes * Telephone Encounter - Joy Clark RN - 02/08/2025 3:56 PM EST called pt to triage, spoke to pt. pt states almost 3 weeks duration of congestion, dry cough, sore throat, fatigue, headache, stuffy nose and intermittent chest tightness. pt states using Dayquil andNyquil as well as intermitent Tylenol to control symptoms. advised to pt to be cautious as both Nyquil and Dayquil contain some Tylenol. pt denies known fevers, rash, severe or sustained sob, vomiting, or other associated or severe symptoms. advised no available appt to schedule tomorrow and given appt Saturday with blue team at 11:00 for exam. advised home care: rest, fluids, steam, humidifier,warm saltwater gargles, lozenges, OTC as needed and call back if worsening or new concerns. Protocol Used: Sinus Pain or Congestion (Adult) Protocol-Based Disposition: See in Office or Video Visit Today or Tomorrow Video visit offer not recorded Positive Triage Questions: * Lots of coughing * Patient wants to be seen * All higher-acuity triage questions were negative. Care Advice Discussed: * Reassurance and Education - Colds and Sinus Congestion * For a Runny Nose - Blow Your Nose * Nasal Washes for a Stuffy Nose * Hydration * Reasons To Call Back - Severe pain lasts over 2 hours after pain medicine - Sinus pain lasts over 1 day after using nasal washes - Sinus congestion (fullness) lasts over 10 days - Fever lasts over 3 days - You become worse * Telephone Encounter - Farzaneh Cole - 02/08/2025 3:44 PM EST Symptoms: Headache, Fever, Cough Outcome: Talk to a nurse or provider within 15 minutes Reason: Trouble talking The caller accepted this outcome. Contact pt at [phone] documented in this encounter Plan of Treatment Upcoming Encounters Date Type Department Care Team (Late st Contact Info) Description 02/17/2025 11:30 AM EST Clinical Support [facility] MEDICINE [address] [place] [address] 04/20/2025 1:00 PM EST Office Visit [facility] OPTOMETRY [address] [place] [address] Florecita Esquivel, OD 230 [place] [address] 04/26/2025 3:30 PM EST Office Visit [facility] MEDICINE 230 [place] [address] Name, MD Beau [address] [place] [address] documented as of this encounter Goals Goal [...] Care Plan Weekly blood pressure task No NavaNilesha Weekly blood pressure task Care Plan Weekly blood pressure task No Nava Karolina Patient has chronic kidney disease Care Plan Patient has chronic kidney disease No Nava Karolina Patient has chronic kidney disease Care Plan Patient has chronic kidney disease No NavaCollin michelleKarolina Weekly blood pressure task Care Plan Weekly [...] Plan Weekly blood pressure task No Colon Farzaneh Cole Weekly blood pressure task Care Plan Weekly blood pressure task No Colon Douglas Farzaneh Patient has chronic kidney disease Care Plan Patient has chronic kidney disease No Colon Douglas Farzaneh Patient has chronic kidney disease Care Plan Patient has chronic kidney disease No Colon Douglas Farzaneh documented as of this encounter Visit Diagnoses [...] 02/08/2025 Patient has chronic kidney disease 02/08/2025 Assessment Noted Time PHQ-9 Depression Total Score: 25 025 11:48 AM EDT documented as of this encounter Care Teams Public Health Representative Relationship Specialty Start Date End Date Name, MD Beau [address] [place] [address] PCP - General Family Medicine 06/01/15 documented as of this encounter
--- OUTSIDE RECORDS SUMMARY | 2025-02-10 20:40 | XMS_ITS | Encounter Summary ---
Author Organization [employer] Address [address] [place] [address] 7t [place] [address] Care Team Providers Care Custom Marine Canvas Fabricator Name Role Phone Name, Beau FRANKS Primary Care Provider [phone] Encounter Details Date Type Department Care Team (Latest Contact Info) Description 02/10/2025 Travel Social History Tobacco Use Types Packs/Day [...] Description 02/17/2025 11:30 AM EST Clinical Support [facility] MEDICINE [address] [place] [address] 04/20/2025 1:00 PM EST Office Visit [facility] OPTOMETRY [address] [place] [address] Florecita Esquivel, OD 230 [place] [address] 04/26/2025 3:30 PM EST Office Visit [facility] MED[facility]INE [address] [place] [address] Name, MD Beau 230 [place] [address] documented as of this encounter Goals Goal [...] Care Plan Weekly blood pressure task No NavaCollinKarolina Patient has chronic kidney disease Care Plan Patient has chronic kidney disease No NavaCollin michelleKarolina Patient has chronic kidney disease Care Plan Patient has chronic kidney disease No Collin Navalanda Weekly blood pressure task Care Plan Weekly [...] Patient has chronic kidney disease No Colon Cole Farzaneh Patient has chronic kidney disease Care Plan Patient has chronic kidney disease No Colon Cole, Farzaneh Weekly blood pressure [...] Camacho [place] documented as of this encounter Visit Diagnoses [...] documented as of this encounter Care Teams Custom Marine Canvas Fabricator Relationship Specialty Start Date End Date Name, MD Beau [address] [place] [address] PCP - General Family Medicine 06/01/15 documented as of this encounter
--- OUTSIDE RECORDS SUMMARY | 2025-02-10 20:40 | XMS_ITS | Encounter Summary ---
Author Organization [employer] Address [address] [place] [address] 7 [place] [address] Care Team Providers Care Herd Tester Name Role Phone Name, Beau FRANKS Primary Care Provider [phone] Reason for Visit * Reason Comments Med Refill Encounter Details Date Type Department Care Team ([facility] st Contact Info) Description 06/02/2024 Refill [facility] MED[facility]INE 230 [place], [place] [phone] Name, MD Beau 230 [place] [address] Asthma, unspecified asthma severity, unspecified whether complicated, [...] Description 02/17/2025 11:30 AM EST Clinical Support [facility]INE [address] [place] [address] 04/20/2025 1:00 PM EST Office Visit [facility] OPTOMETRY [address] [place] [address] Alvin, Florecita, OD 230 [place] [address] 04/26/2025 3:30 PM EST Office Visit [facility] MED[facility]INE [address] [place] [address] Beau Stewart MD [address] [place] [address] documented as of this encounter Visit Diagnoses Diagnosis Asthma, unspecified asthma severity, unspecified whether complicated, unspecified whether persistent documented in this encounter Additional Health Concerns Assessment Noted Time PHQ-9 Depression Total Score: 24 024 3:46 PM EST documented as of this encounter Care Teams Herd Tester Relationship Specialty Start Date End Date Beau Stewart MD [address] [place] [address] PCP - General Family Medicine 06/01/15 documented as of this encounter
--- OUTSIDE RECORDS SUMMARY | 2025-02-10 20:40 | XMS_ITS | Encounter Summary ---
Author Organization [employer] Address [address] [place] [address] 7 [place] [address] Care Team Providers Care Outside Industrial Sales Representative Name Role Phone Name, Beau FRANKS Primary Care Provider [phone] Bambi Jauregui Unavailable Mechelle Dumont RN Unavailable Unavailable Reason for Visit * Reason Comments Med Refill Encounter Details Date Type Department Care Team ([facility] st Contact Info) Description 06/10/2023 Refill [facility] MED[facility]INE [address] [place] [address] Name, MD Beau 230 [place] [address] Asthma, unspecified asthma severity, unspecified whether complicated, [...] 11:30 AM EST Clinical Support [facility] MEDICINE [address] [place] [address] 04/20/2025 1:00 PM EST Office Visit [facility] OPTOMETRY [address] [place] [address] Alvin, Florecita, OD 230 [place] [address] 04/26/2025 3:30 PM EST Office Visit [facility] MEDICINE [address] [place] [address] NameBeau MD [address] [place] [address] documented as of this encounter Visit Diagnoses Diagnosis Asthma, unspecified asthma severity, unspecified whether complicated, unspecified whether persistent documented in this encounter Additional Health Concerns Assessment Noted Time PHQ-9 Depression Total Score: 19 023 3:46 PM EDT documented as of this encounter Care Teams Outside Industrial Sales Representative Relationship Specialty Start Date End Date Beau Stewart MD [address] [place] [address] PCP - General Family Medicine 06/01/15 Bambi Jauregui Community Health Worker 06/27/2309/14 Mechelle Dumont RN Synchro Assembler 06/27/23 09/15/23 documented as of this encounter
--- OUTSIDE RECORDS SUMMARY | 2025-02-10 20:40 | XMS_ITS | Encounter Summary ---
Author Organization [employer] Address [address] [place] [address] 7 [place] [address] Care Team Providers Care Oxygraph Operator Name Role Phone Name, Beau FRANKS Primary Care Provider [phone] Bambi Jauregui Unavailable Mechelle Dumont RN Unavailable Unavailable Reason for Visit * Reason Comments Med Refill Encounter Details Date Type Department Care Team ([facility] st Contact Info) Description 02/21/2023 Refill [facility] MEDICINE 230 [place] [address] Name, MD Beau 230 [place] [address] Chronic pain syndrome Social History Tobacco Use [...] Description 02/17/2025 11:30 AM EST Clinical Support [facility] MEDICINE [address] [place] [address] 04/20/2025 1:00 PM EST Office Visit [facility] OPTOMETRY [address] [place] [address] Alvin, Florecita, OD 230 [place] [address] 04/26/2025 3:30 PM EST Office Visit [facility] MEDICINE [address] [place] [address] Name, MD Beau [address] [place] [address] documented as of this encounter Visit Diagnoses Diagnosis Chronic pain syndrome documented in this encounter Additional Health Concerns Assessment Noted Time PHQ-9 Depression Total Score: 19 023 3:46 PM EDT documented as of this encounter Care Teams Oxygraph Operator Relationship Specialty Start Date End Date NameBeau MD [address] [place] [address] PCP - General Family Medicine 06/01/15 Bambi Jauregui Community Health Worker 06/27/2309/14 Mechelle Dumont RN Crop Adjuster 06/27/23 09/15/23 documented as of this encounter
--- OUTSIDE RECORDS SUMMARY | 2025-02-10 20:40 | XMS_ITS | Encounter Summary ---
Author Organization [employer] Address [address] [place] [address] 7 [place] [address] Care Team Providers Care Dial Painter Name Role Phone Name, Beau FRANKS Primary Care Provider [phone] Reason for Visit * Reason Onset Date Comments Chart Prep 02/09/2025 Encounter Details Date Type Department Care Team ([facility] st Contact Info) Description 02/09/2025 Telephone [facility] [address] [place] [address] Name, MD Beau [address] [place] [address] Chart Prep Social History Tobacco Use Types Packs/Day Years [...] encounter Miscellaneous Notes * Telephone Encounter - Sergey Camacho MA - 02/09/2025 7:34 PM EST Chart Prep Labs: done Images: done Referrals: Booked Vaccines due: Covid, Flu, PCV20, Hep B, RSV, and Zoster Screenings: Alcohol/Substance Use Screening Overdue care gaps: SBIRT, SDOH, and Tobacco documented in this encounter Plan of Treatment Upcoming Encounters Date Type Department Care Team (Late st Contact Info) Description 02/17/2025 11:30 AM EST Clinical Support [facility] MEDICINE [address] [place] [address] 04/20/2025 1:00 PM EST Office Visit [facility] OPTOMETRY [address] [place] [address] Florecita Esquivel, OD 230 [place] [address] 04/26/2025 3:30 PM EST Office Visit [facility] MEDICINE [address] [place] [address] Name, MD Beau [address] [place] [address] documented as of this encounter Goals Goal [...] Plan Patient has chronic kidney disease No Nilesh Navaa Patient has chronic kidney disease Care Plan [...] Care Plan Weekly blood pressure task No Farzaneh Ge Weekly blood pressure task Care Plan Weekly blood pressure task No Colon Farzaneh Cole Patient has chronic kidney disease Care Plan Patient has chronic kidney disease No Farzaneh Ge Patient has chronic kidney disease Care Plan Patient has chronic kidney disease No Jordi Cole Farzaneh Weekly blood pressure task Care Plan Weekly blood pressure task No Sergey Camacho [place] Weekly blood pressure task Care Plan Weekly blood pressure task Sergey Deshpande [place] Patient has chronic kidney disease Care Plan Patient has chronic kidney disease Sergey Deshpande [place] Patient has chronic kidney disease Care Plan Patient has chronic kidney disease Sergey Deshpande [place] Weekly blood pressure task Care Plan Weekly blood pressure task Sergey Deshpande MA Weekly blood pressure task Care Plan Weekly blood pressure task No Sergey Camacho [place] Patient has chronic kidney disease Care Plan Patient has chronic kidney disease Sergey Deshpande [place] Patient has chronic kidney disease Care Plan Patient has chronic kidney disease Sergey Deshpande [place] documented as of this encounter Visit [...] Noted Time PHQ-9 Depression Total Score: 25 11/19/ 025 11:48 AM EDT documented as of this encounter Care Teams Dial Painter Relationship Specialty Start Date End Date Name, MD Beau [address] [place] [address] PCP - General Family Medicine 06/01/15 documented as of this encounter
--- OUTSIDE RECORDS SUMMARY | 2025-02-10 20:40 | XMS_ITS | Encounter Summary ---
Author Organization [employer] Address [address] [place] [address] 7 [place] [address] Care Team Providers Care Paper Production Engineer Name Role Phone Name, Beau FRANKS Primary Care Provider [phone] Reason for Visit * Reason Comments Med Refill Encounter Details Date Type Department Care Team ([facility] st Contact Info) Description 12/12/2024 Refill [facility] MEDICINE [address] [place], [place] [phone] Name, MD Beau [address] [place] [address] Asthma, unspecified asthma severity, unspecified whether complicated, [...] Description 02/17/2025 11:30 AM EST Clinical Support [facility] MEDICINE [address] [place] [address] 04/20/2025 1:00 PM EST Office Visit [facility] OPTOMETRY [address] [place] [address] Alvin, Florecita, OD [address] [place] [address] 04/26/2025 3:30 PM EST Office Visit [facility] MEDICINE [address] [place] [address] Beau Stewart MD [address] [place] [address] documented as of this encounter Visit Diagnoses Diagnosis Asthma, unspecified asthma severity, unspecified whether complicated, unspecified whether persistent documented in this encounter Additional Health Concerns Assessment Noted Time PHQ-9 Depression Total Score: 25 025 11:48 AM EDT documented as of this encounter Care Teams Paper Production Engineer Relationship Specialty Start Date End Date Beau Stewart MD [address] [place] [address] PCP - General Family Medicine 06/01/15 documented as of this encounter
--- OUTSIDE RECORDS SUMMARY | 2025-02-10 20:40 | XMS_ITS | Encounter Summary ---
Author Organization [employer] Address [address] [place] [address] 7 [place] [address] Care Team Providers Care Collection Manager Name Role Phone Name, Beau FRANKS Primary Care Provider [phone] Bambi Jauregui Unavailable Mechelle Dumont RN Unavailable Unavailable Encounter Details Date Type Department Care Team (Late st Contact Info) Description 08/06/2022 Abstract [facility] MEDICINE [address] [place] [address] [phone] Name, MD Beau 230 [place], [place] [phone] Social History Tobacco Use Types Packs/Day Years [...] Description 02/17/2025 11:30 AM EST Clinical Support [facility] MEDICINE 230 [place], [place] [phone] 04/20/2025 1:00 PM EST Office Visit [facility] OPTOMETRY [address] [place], [place] [phone] Florecita Esquivel, OD 230 [place], [place] [phone] 04/26/2025 3:30 PM EST Office Visit [facility] MEDICINE [address] [place] [address] Name, [place] [address] documented as of this encounter Procedures Procedure Name Priority Date/Time Associated Diagnosis Comments COLONOSCOPY Routine 06/09/2020 2:16 PM EDT documented in this encounter Results * Colonoscopy (06/09/2020 2:16 PM EDT) Colonoscopy Normal Normal Narrative TraciDilshadba - 06/09/2020 2:16 PM EDT Recommended 10 year follow up ([facility]) us Historical Provider HEALTH MAINTENANCE Final Result documented in this encounter Visit Diagnoses Not on filedocumented in this encounter Care Teams Collection Manager Relationship Specialty Start Date End Date Name, [place] [address] PCP - General Family Medicine 06/01/15 Bambi Jauregui Community Health Worker 06/27/2309/14 Mechelle Dumont, ISABEL Remote Inpatient Coder 06/27/23 09/15/23 documented as of this encounter
--- OUTSIDE RECORDS SUMMARY | 2025-02-10 20:40 | XMS_ITS | Encounter Summary ---
Author Organization [employer] Address [address] [place] [address] 7 [place] [address] Care Team Providers Care Manager Produce Name Role Phone Name, Beau FRANKS Primary Care Provider [phone] Bambi Jauregui Unavailable Mechelle Dumont RN Unavailable Unavailable Reason for Visit * Reason Comments Med Refill Encounter Details Date Type Department Care Team (Late st Contact Info) Description 06/08/2022 Refill [facility] MEDICINE [address] [place] [address] Name, MD Beau [address] [place] [address] Asthma, unspecified asthma severity, unspecified whether complicated, [...] Description 02/17/2025 11:30 AM EST Clinical Support [facility] MEDICINE 230 [place], [place] [phone] 04/20/2025 1:00 PM EST Office Visit [facility] OPTOMETRY [address] [place] [address] Florecita Esquivel, OD 230 [place] [address] 04/26/2025 3:30 PM EST Office Visit [facility] MEDICINE [address] [place] [address] Name, MD Beau [address] [place] [address] documented as of this encounter Visit Diagnoses Diagnosis Asthma, unspecified asthma severity, unspecified whether complicated, unspecified whether persistent documented in this encounter Care Teams Manager Produce Relationship Specialty Start Date End Date Name, MD Beau [address] [place] [address] PCP - General Family Medicine 06/01/15 Bambi Jauregui Community Health Worker 06/27/2309/14 Mechelle Dumont, ISABEL Accounts Receivable Associate 06/27/23 09/15/23 documented as of this encounter
--- OUTSIDE RECORDS SUMMARY | 2025-02-10 20:40 | XMS_ITS | Encounter Summary ---
Author Organization [employer] Address [address] [place] [address] 7 [place] [address] Care Team Providers Care Materials Tech Name Role Phone Name, Beau FRANKS Primary Care Provider [phone] Bambi Jauregui Unavailable Mechelle Dumont RN Unavailable Unavailable Reason for Visit * Reason Comments Med Refill Encounter Details Date Type Department Care Team (Late st Contact Info) Description 06/11/2022 Refill [facility] MEDICINE [address] [place] [address] Name, MD Beau 230 [place] [address] Iron deficiency Social History Tobacco Use Types [...] Description 02/17/2025 11:30 AM EST Clinical Support [facility] MEDICINE 230 [place], [place] [phone] 04/20/2025 1:00 PM EST Office Visit [facility] OPTOMETRY [address] [place], [place] [phone] Florecita Esquivel, OD 230 [place] [address] 04/26/2025 3:30 PM EST Office Visit [facility]ICINE [address] [facility] [place] [address] Name, MD Beau [address] [facility] [place] [address] documented as of this encounter Visit Diagnoses Diagnosis Iron deficiency Disorders of iron metabolism documented in this encounter Care Teams Materials Tech Relationship Specialty Start Date End Date Name, MD Baeu [address] [facility] [place] [address] PCP - General Family Medicine 06/01/15 Bambi Jauregui Community Health Worker 06/27/2309/14 Mechelle Dumont RN Flatwork Supervisor 06/27/23 09/15/23 documented as of this encounter
--- OUTSIDE RECORDS SUMMARY | 2025-02-10 20:40 | XMS_ITS | Encounter Summary ---
Author Organization [employer] Address [address] [place] [address] 7t [place] [address] Care Team Providers Care Spray Blender Name Role Phone Name, Beau FRANKS Primary Care Provider [phone] Reason for Visit * Reason Onset Date Comments dec recalls 02/05/2025 Encounter Details Date Type Department Care Team (Late st Contact Info) Description 02/05/2025 Telephone [facility] MEDICINE [address] [place] [address] Erlinda Swain MA dec recalls Social History Tobacco Use Types Packs/Day [...] Telephone Encounter - Erlinda Swain MA - 02/05/2025 3:08 PM EST Telephone call to patient to schedule the following recall: Visit type: Follow up Appointment notes: HTN and DM Patient agree to appointment on 04/26/25 at 3;30 PM with Name. documented in this encounter Plan of Treatment Upcoming Encounters Date Type Department Care Team (Late st Contact Info) Description 02/17/2025 11:30 AM EST Clinical Support [facility] MEDICINE [address] [place] [address] 04/20/2025 1:00 PM EST Office Visit [facility] OPTOMETRY [address] [place] [address] Florecita Esquivel, OD 230 [place] [address] 04/26/2025 3:30 PM EST Office Visit [facility] MEDICINE 230 [place] [address] Name, MD Beau [address] [place] [address] documented as of this encounter Goals Goal [...] chronic kidney disease No Erlinda Swain MA documented as of this encounter Visit [...] 02/05/2025 Patient has chronic kidney disease 02/05/2025 Assessment Noted Time PHQ-9 Depression Total Score: 25 025 11:48 AM EDT documented as of this encounter Care Teams Spray Blender Relationship Specialty Start Date End Date Name, MD Beau [address] [place] [address] PCP - General Family Medicine 06/01/15 documented as of this encounter
--- OUTSIDE RECORDS SUMMARY | 2025-02-10 20:40 | XMS_ITS | Encounter Summary ---
Author Organization [employer] Address [address] [place] [address] 7t [place] [address] Care Team Providers Care Head Track Coach Name Role Phone Name, Beau FRANKS Primary Care Provider [phone] Bambi Jauregui Unavailable Mechelle Dumont RN Unavailable Unavailable Encounter Details Date Type Department Care Team (Late st Contact Info) Description 02/28/2022 Orders Only [facility] MED & PEDS [address] [place], [place] [phone] Kindra Woodall LPN Social History Tobacco Use [...] Description 02/17/2025 11:30 AM EST Clinical Support [facility] MEDICINE [address] [place] [address] [phone] 04/20/2025 1:00 PM EST Office Visit [facility] OPTOMET[facility] [address] [place], [place] [phone] Florecita Esquivel OD 230 [place], [place] [phone] 04/26/2025 3:30 PM EST Office Visit [facility] 230 [place], [place] [phone] Name, MD Beau 230 [place] [address] documented as of this encounter Visit Diagnoses Not on filedocumented in this encounter Care Teams Head Track Coach Relationship Specialty Start Date End Date Name, MD Beau [address] [place] [address] PCP - General Family Medicine 06/01/15 Bambi Jauregui Community Health Worker 06/27/2309/14 Mechelle Dumont, ISABEL Flexographic Press Plate Setter 06/27/23 09/15/23 documented as of this encounter
--- OUTSIDE RECORDS SUMMARY | 2025-02-10 20:40 | XMS_ITS | Encounter Summary ---
Author Organization [employer] Address [address] [place] [address] 7 [place] [address] Care Team Providers Care Art Education Professor Name Role Phone Name, Beau FRANKS Primary Care Provider [phone] Reason for Visit * Reason Comments Med Refill Encounter Details Date Type Department Care Team ([facility] st Contact Info) Description 10/04/[address] [facility] MEDICINE 230 [place], [place] [phone] Name, MD Beau 230 [place] [address] Social History Tobacco Use Types Packs/Day Years [...] Description 02/17/2025 11:30 AM EST Clinical Support [facility] 230 [place] [address] 04/20/2025 1:00 PM EST Office Visit [facility] OPTOMETRY 267 [place] [address] Alvin, Florecita, OD 230 [place] [address] 04/26/2025 3:30 PM EST Office Visit [facility] MED[facility] 230 [place] [address] NameBeau MD [address] [place] [address] documented as of this encounter Visit Diagnoses Not on filedocumented in this encounter Additional Health Concerns Assessment Noted Time PHQ-9 Depression Total Score: 19 023 3:46 PM EDT documented as of this encounter Care Teams Art Education Professor Relationship Specialty Start Date End Date Name, MD Beau [address] [place] [address] PCP - General Family Medicine 06/01/15 documented as of this encounter
--- OUTSIDE RECORDS SUMMARY | 2025-02-10 20:40 | XMS_ITS | Encounter Summary ---
Author Organization [employer] Address [address] [place] [address] 7 [place] [address] Care Team Providers Care Machine Feeder Raw Stock Name Role Phone Name, Beau FRANKS Primary Care Provider [phone] Bambi Jauregui Unavailable Mechelle Dumont RN Unavailable Unavailable Reason for Visit * Reason Comments Med Refill Encounter Details Date Type Department Care Team ([facility] st Contact Info) Description 06/13/2023 Refill [facility] MEDICINE 230 [place] [address] Name, MD Beau 230 [place] [address] Asthma, unspecified asthma severity, unspecified whether complicated, [...] Description 02/17/2025 11:30 AM EST Clinical Support [facility] MEDICINE [address] [place] [address] 04/20/2025 1:00 PM EST Office Visit [facility] OPTOMETRY 267 [place] [address] Alvin, Florecita, OD 230 [place] [address] 04/26/2025 3:30 PM EST Office Visit [facility] MEDICINE [address] [place] [address] NameBeau MD [address] [place] [address] documented as of this encounter Visit Diagnoses Diagnosis Asthma, unspecified asthma severity, unspecified whether complicated, unspecified whether persistent documented in this encounter Additional Health Concerns Assessment Noted Time PHQ-9 Depression Total Score: 19 023 3:46 PM EDT documented as of this encounter Care Teams Machine Feeder Raw Stock Relationship Specialty Start Date End Date Beau Stewart MD [address] [place] [address] PCP - General Family Medicine 06/01/15 Bambi Jauregui Community Health Worker 06/27/2309/14 Mechelle Dumont RN Disability Hearing Officer 06/27/23 09/15/23 documented as of this encounter
--- OUTSIDE RECORDS SUMMARY | 2025-02-10 20:40 | XMS_ITS | Encounter Summary ---
Author Organization [employer] Address [address] [place] [address] 7 [place] [address] Care Team Providers Care Therapist'S Assistant Name Role Phone Name, Beau FRANKS Primary Care Provider [phone] Bambi Jauregui Unavailable Mechelle Dumont RN Unavailable Unavailable Encounter Details Date Type Department Care Team (Late st Contact Info) Description 03/07/2022 Orders Only [facility] MEDICINE [address] [place] [address] [phone] Ekaterina Pappas LPN Social History Tobacco Use [...] Support [facility] MEDICINE [address] [place] [address] 04/20/2025 1:00 PM EST Office Visit [facility] OPTOMETRY 267 [place], [place] [phone] Florecita Esquivel OD 230 [place], [place] [phone] 04/26/2025 3:30 PM EST Office Visit [address] [address] Name, MD Beau 230 [place], [place] [phone] documented as of this encounter Visit Diagnoses Not on filedocumented in this encounter Care Teams Therapist'S Assistant Relationship Specialty Start Date End Date Name, MD Beau [address] [place] [address] PCP - General Family Medicine 06/01/15 Bambi Jauregui Community Health Worker 06/27/2309/14 Mechelle Dumont, ISABEL Election Judge 06/27/23 09/15/23 documented as of this encounter
--- OUTSIDE RECORDS SUMMARY | 2025-02-10 20:40 | XMS_ITS | Encounter Summary ---
Author Organization [employer] Address [address] [place] [address] 7t [place] [address] Care Team Providers Care Cement And Concrete Plant Worker Name Role Phone Name, Beau FRANKS Primary Care Provider [phone] Bambi Jauregui Unavailable Mechelle Dumont RN Unavailable Unavailable Reason for Visit * Reason Comments Med Refill Encounter Details Date Type Department Care Team ([facility] st Contact Info) Description 01/31/2023 Refill [facility] CHC MED & PEDS [address] [place], [place] [phone] Name, MD Beau 230 [place] [address] Asthma, unspecified asthma severity, unspecified whether complicated, [...] Description 02/17/2025 11:30 AM EST Clinical Support [facility] MEDICINE [address] [place] [address] 04/20/2025 1:00 PM EST Office Visit [facility] OPTOMETRY 267 [place] [address] Alvin, Florecita, OD 230 [place] [address] 04/26/2025 3:30 PM EST Office Visit [address] [address] Name, MD Beau [address] [place] [address] documented as of this encounter Visit Diagnoses Diagnosis Asthma, unspecified asthma severity, unspecified whether complicated, unspecified whether persistent documented in this encounter Additional Health Concerns Assessment Noted Time PHQ-9 Depression Total Score: 19 023 3:46 PM EDT documented as of this encounter Care Teams Cement And Concrete Plant Worker Relationship Specialty Start Date End Date Beau Stewart MD [address] [place] [address] PCP - General Family Medicine 06/01/15 Bambi Jauregui Community Health Worker 06/27/2309/14 Mechelle Dumont, ISABEL Veneer Production Machine Operator 06/27/23 09/15/23 documented as of this encounter
--- OUTSIDE RECORDS SUMMARY | 2025-02-10 20:40 | XMS_ITS | Encounter Summary ---
Author Organization [employer] Address [address] [place] [address] 7t [place] [address] Care Team Providers Care Medical Director Name Role Phone Name, Beau FRANKS Primary Care Provider [phone] Bambi Jauregui Unavailable Mechelle Dumont RN Unavailable Unavailable Encounter Details Date Type Department Care Team (Late st Contact Info) Description 03/26/2022 Orders Only [facility] CHC MED & PEDS [address] [place], [place] [phone] Kindra Woodall LPN Social History Tobacco Use [...] Description 02/17/2025 11:30 AM EST Clinical Support [facility] MEDICINE [address] [place] [address] [phone] 04/20/2025 1:00 PM EST Office Visit [facility] OPTOMETRY [address] [place], [place] [phone] Florecita Esquivel OD 230 [place], [place] [phone] 04/26/2025 3:30 PM EST Office Visit [facility] MEDICINE 230 [place], [place] [phone] Name, MD Beau 230 [place] [address] documented as of this encounter Visit Diagnoses Not on filedocumented in this encounter Care Teams Medical Director Relationship Specialty Start Date End Date Name, MD Beau [address] [place] [address] PCP - General Family Medicine 06/01/15 Bambi Jauregui Community Health Worker 06/27/2309/14 Mechelle Dumont, ISABEL Residential Therapist 06/27/23 09/15/23 documented as of this encounter
--- OUTSIDE RECORDS SUMMARY | 2025-02-10 20:40 | XMS_ITS | Encounter Summary ---
Author Organization [employer] Address [address] [place] [address] 7 [place] [address] Care Team Providers Care Sanitary Napkin Machine Tender Name Role Phone Name, Beau FRANKS Primary Care Provider [phone] Reason for Visit * Reason Comments Med Refill Encounter Details Date Type Department Care Team ([facility] st Contact Info) Description 09/19/2023 Refill [facility] MEDICINE 230 [place], [place] [phone] Name, MD Beau 230 [place], [place] [phone] Erectile dysfunction, unspecified erectile dysfunction type Social [...] Description 02/17/2025 11:30 AM EST Clinical Support [facility] MEDICINE [address] [place] [address] 04/20/2025 1:00 PM EST Office Visit [facility] OPTOMETRY 267 [place] [address] Alvin, Florecita, OD 230 [place] [address] 04/26/2025 3:30 PM EST Office Visit [facility] MEDICINE [address] [place] [address] NameBeau MD [address] [place] [address] documented as of this encounter Visit Diagnoses Diagnosis Erectile dysfunction, unspecified erectile dysfunction type documented in this encounter Additional Health Concerns Assessment Noted Time PHQ-9 Depression Total Score: 19 023 3:46 PM EDT documented as of this encounter Care Teams Sanitary Napkin Machine Tender Relationship Specialty Start Date End Date NameBeau MD [address] [place] [address] PCP - General Family Medicine 06/01/15 documented as of this encounter
--- OUTSIDE RECORDS SUMMARY | 2025-02-10 20:40 | XMS_ITS | Encounter Summary ---
Author Organization [employer] Address [address] [place] [address] 7 [place] [address] Care Team Providers Care Distillery Manager Name Role Phone Name, Beau FRANKS Primary Care Provider [phone] Bambi Jauregui Unavailable Mechelle Dumont RN Unavailable Unavailable Reason for Visit * Reason Onset Date Comments Med Refill 08/21/2022 Encounter Details Date Type Department Care Team ([facility] st Contact Info) Description 08/21/2022 Telephone [facility] MEDICINE 230 [place] [address] Name, MD Beau 230 [place] [address] Med Refill Social History Tobacco Use Types [...] to PCP. * Telephone Encounter - Isidra Jaurgeui - 08/21/2022 4:11 PM EDT Tc from pt requesting medication refill for albuterol (Ventolin HFA) 108 (90 Base) MCG/ACT inhaler documented in this encounter Plan of Treatment Upcoming Encounters Date Type Department Care Team (Late st Contact Info) Description 02/17/2025 11:30 AM EST Clinical Support [facility] MEDICINE 230 [place] [address] 04/20/2025 1:00 PM EST Office Visit [facility] OPTOMETRY [address] [place] [address] Alvin, Florecita, OD 230 [place] [address] 04/26/2025 3:30 PM EST Office Visit [facility] MEDICINE 230 [place] [address] Name, MD Beau 230 [place] [address] documented as of this encounter Visit Diagnoses Not on filedocumented in this encounter Care Teams Distillery Manager Relationship Specialty Start Date End Date Name, MD Beau [address] [place] [address] PCP - General Family Medicine 06/01/15 Bambi Jauregui Community Health Worker 06/27/2309/14 Mechelle Dumont, ISABEL Final Armature Tester 06/27/23 09/15/23 documented as of this encounter
--- OUTSIDE RECORDS SUMMARY | 2025-02-10 20:40 | XMS_ITS | Encounter Summary ---
Author Organization [employer] Address [address] [place] [address] 7 [place] [address] Care Team Providers Care Woven Paper Hat Mender Name Role Phone Name, Beau FRANKS Primary Care Provider [phone] Bambi Jauregui Unavailable Mechelle Dumont RN Unavailable Unavailable Encounter Details Date Type Department Care Team (Late st Contact Info) Description 03/02/2022 Orders Only [facility] MEDICINE [address] [place] [address] [phone] Leila Moeller RN Social History Tobacco Use Types [...] Description 02/17/2025 11:30 AM EST Clinical Support [facility] MEDIC[facility] [address] [place] [address] 04/20/2025 1:00 PM EST Office Visit [facility] OPTOMETRY [address] [place] [address] [phone] Florecita Esquivel OD 230 [place] [address] 04/26/2025 3:30 PM EST Office Visit [facility] MED[facility] [address] [place] [address] Name, MD Beau 230 [place] [address] documented as of this encounter Visit Diagnoses Not on filedocumented in this encounter Care Teams Woven Paper Hat Mender Relationship Specialty Start Date End Date Name, MD Beau [address] [place] [address] PCP - General Family Medicine 06/01/15 Bambi Jauregui Community Health Worker 06/27/2309/14 Mechelle Dumont, ISABEL Cvor Nurse 06/27/23 09/15/23 documented as of this encounter
--- OUTSIDE RECORDS SUMMARY | 2025-02-10 20:40 | XMS_ITS | Encounter Summary ---
Author Organization [employer] Address [address] [place] [address] 7t [place] [address] Care Team Providers Care Supervisor Metal Placing Name Role Phone Name, Beau FRANKS Primary Care Provider Bambi Jauregui Unavailable Mechelle Dumont RN Unavailable Unavailable Encounter Details Date Type Department Care Team ([facility] st Contact Info) Description 04/08/2023 Orders Only [facility] CHC MED & PEDS 505 [place], [place] [phone] Ekaterina Pappas LPN Social History Tobacco Use [...] Description 02/17/2025 11:30 AM EST Clinical Support [facility] MEDICINE [address] [place] [address] 04/20/2025 1:00 PM EST Office Visit [facility] OPTOMETRY 267 [place] [address] Alvin, Florecita, OD 230 [place] [address] 04/26/2025 3:30 PM EST Office Visit [facility] MEDICINE [address] [place] [address] Name, MD Beau [address] [place] [address] documented as of this encounter Visit Diagnoses Not on filedocumented in this encounter Additional Health Concerns Assessment Noted Time PHQ-9 Depression Total Score: 19 023 3:46 PM EDT documented as of this encounter Care Teams Supervisor Metal Placing Relationship Specialty Start Date End Date Name, MD Beau [address] [place] [address] PCP - General Family Medicine 06/01/15 Bambi Jauregui Community Health Worker 06/27/2309/14 Mechelle Dumont RN Continuous Improvement Coach 06/27/23 09/15/23 documented as of this encounter
--- OUTSIDE RECORDS SUMMARY | 2025-02-10 20:40 | XMS_ITS | Encounter Summary ---
Author Organization [employer] Address [address] [place] [address] 7t [place] [address] Care Team Providers Care Body Joiner Name Role Phone Name, Beau FRANKS Primary Care Provider [phone] Reason for Visit * Reason Comments Med Refill Encounter Details Date Type Department Care Team ([facility] st Contact Info) Description 04/07/2024 Refill [facility] MEDICINE 230 [place], [place] [phone] Laura Russell MD 230 [place], [place] [phone] Asthma, unspecified asthma severity, unspecified whether complicated, [...] 11:30 AM EST Clinical Support [facility] MEDICINE [address] [place] [address] 04/20/2025 1:00 PM EST Office Visit [facility] OPTOMETRY 267 [place] [address] Alvin, Florecita, OD 230 [place] [address] 04/26/2025 3:30 PM EST Office Visit [facility] MEDICINE [address] [place] [address] Beau Stewart MD [address] [place] [address] documented as of this encounter Visit Diagnoses Diagnosis Asthma, unspecified asthma severity, unspecified whether complicated, unspecified whether persistent documented in this encounter Additional Health Concerns Assessment Noted Time PHQ-9 Depression Total Score: 24 024 3:46 PM EST documented as of this encounter Care Teams Body Joiner Relationship Specialty Start Date End Date Beau Stewart MD [address] [place] [address] PCP - General Family Medicine 06/01/15 documented as of this encounter
--- OUTSIDE RECORDS SUMMARY | 2025-02-10 20:40 | XMS_ITS | Encounter Summary ---
Author Organization [employer] Address [address] [place] [address] 7 [place] [address] Care Team Providers Care Software Test And Validation Engineer Name Role Phone Name, Beau FRANKS Primary Care Provider [phone] Reason for Visit * Reason Comments Med Refill Encounter Details Date Type Department Care Team ([facility] st Contact Info) Description 10/21/2024 Refill [facility] MEDICINE 230 [place], [place] [phone] Felecia Gunderson NP 230 [place] [address] Asthma, unspecified asthma severity, unspecified whether complicated, [...] Description 02/17/2025 11:30 AM EST Clinical Support [facility] MEDICINE [address] [place] [address] 04/20/2025 1:00 PM EST Office Visit [facility] OPTOMETRY [address] [place] [address] Alvin, Florecita, OD 230 [place] [address] 04/26/2025 3:30 PM EST Office Visit [facility] MEDICINE [address] [place] [address] Beau Stewart MD [address] [place] [address] documented as of this encounter Visit Diagnoses Diagnosis Asthma, unspecified asthma severity, unspecified whether complicated, unspecified whether persistent documented in this encounter Additional Health Concerns Assessment Noted Time PHQ-9 Depression Total Score: 24 024 3:46 PM EST documented as of this encounter Care Teams Software Test And Validation Engineer Relationship Specialty Start Date End Date Beau Stewart MD [address] [place] [address] PCP - General Family Medicine 06/01/15 documented as of this encounter
--- OUTSIDE RECORDS SUMMARY | 2025-02-10 20:40 | XMS_ITS | Encounter Summary ---
Author Organization [employer] Address [address] [place] [address] 7t [place] [address] Care Team Providers Care Chief Nurse Executive Name Role Phone Name, Beau FRANKS Primary Care Provider [phone] Bambi Jauregui Unavailable Mechelle Dumont RN Unavailable Unavailable Encounter Details Date Type Department Care Team (Late st Contact Info) Description 07/02/2022 Orders Only [facility] MEDICINE 230 [place], [place] [phone] Ekaterina Pappas LPN Social History Tobacco Use [...] Description 02/17/2025 11:30 AM EST Clinical Support [facility] MEDICINE 230 [place], [place] [phone] 04/20/2025 1:00 PM EST Office Visit [facility] OPTOMETRY [address] [place], [place] [phone] Alvin, Florecita, OD 230 [place] [address] 04/26/2025 3:30 PM EST Office Visit [facility] MEDICINE 230 [place] [address] Name, MD [place] [address] documented as of this encounter Visit Diagnoses Not on filedocumented in this encounter Care Teams Chief Nurse Executive Relationship Specialty Start Date End Date Name, MD Beau [address] [place] [address] PCP - General Family Medicine 06/01/15 Bambi Jauregui Community Health Worker 06/27/2309/14 Mechelle Dumont, RN Multiple Knife Edge Trimmer Operator 06/27/23 09/15/23 documented as of this encounter
--- OUTSIDE RECORDS SUMMARY | 2025-02-10 20:40 | XMS_ITS | Encounter Summary ---
Author Organization [employer] Address [address] [place] [address] 7 [place] [address] Care Team Providers Care Crnp Name Role Phone Name, Beau FRANKS Primary Care Provider [phone] Reason for Visit * Reason Onset Date Comments Med Refill 12/11/2024 Encounter Details Date Type Department Care Team ([facility] st Contact Info) Description 12/11/2024 Telephone [facility] MEDICINE 230 [place], [place] [phone] Name, MD Beau 230 [place] [address] Med Refill Social History Tobacco Use Types [...] Base) MCG/ACT inhaler To be sent to: [id number] [place], [place] - [address] [place] [address] AT [facility] Requesting more refills on script documented in this encounter Plan of Treatment Upcoming Encounters Date Type Department Care Team (Late st Contact Info) Description 02/17/2025 11:30 AM EST Clinical Support [facility] 230 [place] [address] 04/20/2025 1:00 PM EST Office Visit [facility] OPTOMETRY [address] [place] [address] Florecita Esquivel, OD 230 [place] [address] 04/26/2025 3:30 PM EST Office Visit [facility] 230 [place] [address] Name, MD Beau 230 [place] [address] documented as of this encounter Visit Diagnoses Not on filedocumented in this encounter Additional Health Concerns Assessment Noted Time PHQ-9 Depression Total Score: 25 025 11:48 AM EDT documented as of this encounter Care Teams Crnp Relationship Specialty Start Date End Date Name, MD Beau 230 [place] [address] PCP - General Family Medicine 06/01/15 documented as of this encounter
--- OUTSIDE RECORDS SUMMARY | 2025-02-10 20:40 | XMS_ITS | Encounter Summary ---
Author Organization [employer] Address [address] [place] [address] 7 [place] [address] Care Team Providers Care Linen Room Worker Name Role Phone Name, Beua FRANKS Primary Care Provider [phone] Reason for Visit * Reason Onset Date Comments Med Refill 10/04/2023 Encounter Details Date Type Department Care Team (Late st Contact Info) Description 10/04/2023 Telephone [facility] [address] [place], [place] [phone] Name, MD Beau [address] [place] [address] Med Refill Social History Tobacco Use Types [...] MG EC tablet To be sent to: [id number] [place], [place] [address] [facility] documented in this encounter Plan of Treatment Upcoming Encounters Date Type Department Care Team (Late st Contact Info) Description 02/17/2025 11:30 AM EST Clinical Support [facility] MEDICINE [address] [place] [address] 04/20/2025 1:00 PM EST Office Visit [facility] OPTOMETRY [address] [place] [address] Florecita Esquivel, OD [address] [place] [address] 04/26/2025 3:30 PM EST Office Visit [facility] MEDICINE [address] [place] [address] Name, MD Beau [address] [place] [address] documented as of this encounter Visit Diagnoses Not on filedocumented in this encounter Additional Health Concerns Assessment Noted Time PHQ-9 Depression Total Score: 19 023 3:46 PM EDT documented as of this encounter Care Teams Linen Room Worker Relationship Specialty Start Date End Date Name, MD Beau [address] [place] [address] PCP - General Family Medicine 06/01/15 documented as of this encounter
--- OUTSIDE RECORDS SUMMARY | 2025-02-10 20:40 | XMS_ITS | Encounter Summary ---
Author Organization [employer] Address [address] [place] [address] 7 [place] [address] Care Team Providers Care Salon Supervisor Name Role Phone Name, Beau FRANKS Primary Care Provider [phone] Bambi Jauregui Unavailable Mechelle Dumont RN Unavailable Unavailable Reason for Visit * Reason Comments Med Refill Encounter Details Date Type Department Care Team (Late st Contact Info) Description 05/28/2022 Refill [facility] [address] [place] [address] Name, MD Beau [address] [place] [address] Asthma, unspecified asthma severity, unspecified whether complicated, [...] Description 02/17/2025 11:30 AM EST Clinical Support [facility] [address] [place], [place] [phone] 04/20/2025 1:00 PM EST Office Visit [facility] OPTOMETRY [address] [place] [address] Florecita Esquivel, OD 230 [place] [address] 04/26/2025 3:30 PM EST Office Visit [facility] [address] [place] [address] Name, MD Beau [address] [place] [address] documented as of this encounter Visit Diagnoses Diagnosis Asthma, unspecified asthma severity, unspecified whether complicated, unspecified whether persistent documented in this encounter Care Teams Salon Supervisor Relationship Specialty Start Date End Date Name, MD Beau [address] [place] [address] PCP - General Family Medicine 06/01/15 Bambi Jauregui Community Health Worker 06/27/2309/14 Mechelle Dumont, ISABEL Retail Advisor 06/27/23 09/15/23 documented as of this encounter
--- OUTSIDE RECORDS SUMMARY | 2025-02-10 20:41 | XMS_ITS | Encounter Summary ---
Author Organization [employer] Address [address] [place] [address] 7 [place] [address] Care Team Providers Care Pai Gow Dealer Name Role Phone Name, Beau FRANKS Primary Care Provider [phone] Bambi Jauregui Unavailable Mechelle Dumont RN Unavailable Unavailable Reason for Visit * Reason Onset Date Comments PT1 11/14/2022 Encounter Details Date Type Department Care Team ([facility] st Contact Info) Description 11/14/[address] [facility] MEDICINE [address] [place] [address] Name, MD Beau [address] [place] [address] PT1 Social History Tobacco Use Types Packs/Day [...] 10:01 AM EDT Allergy PT-1 Request Number [id number] is Pending Dr Salazar PT-1 Request Number [id number] is Pending Ortho PT-1 Request Number [id number] is Pending Pt has an active PT1 for [facility] * Telephone Encounter - Melva Terrence - 11/14/2022 3:57 PM EDT PT1 Address verified Date: 11/20/22 Time: 2 pm Visits: Address: [address] [place] [address] Facility: Allergy Injection Wheel Chair: n/a Provider Relations Representative Needed: no PT1 Date: 12/05/22 Time: 11:30 am Visits: Address: [address] [place] Facility: Orthopedic Wheel Chair: n/a Provider Relations Representative Needed: no PT1 Date: 12/07/22 Time: 11:15 am Visits: Address: [address] [place], [place] Facility: PCP Wheel Chair: n/a Provider Relations Representative Needed: no PT1 Date: 12/07/22 Time: 2:30 pm Visits: Address: [address] [place] Facility: Dr. Salazar Wheel Chair: n/a Provider Relations Representative Needed: no documented in this encounter Plan of Treatment Upcoming Encounters Date Type Department Care Team (Late st Contact Info) Description 02/17/2025 11:30 AM EST Clinical Support [facility] MEDICINE [address] [place] [address] 04/20/2025 1:00 PM EST Office Visit [facility] OPTOMETRY [address] [place] [address] Florecita Esquivel, OD [address] [place] [address] 04/26/2025 3:30 PM EST Office Visit [facility] MEDICINE [address] [place] [address] Name, MD Beau [address] [place] [address] documented as of this encounter Visit Diagnoses Not on filedocumented in this encounter Care Teams Pai Gow Dealer Relationship Specialty Start Date End Date Name, MD Beau [address] [place] [address] PCP - General Family Medicine 06/01/15 Bambi Jauregui Community Health Worker 06/27/2309/14 Mechelle Dumont, ISABEL Vector Control Assistant 06/27/23 09/15/23 documented as of this encounter
--- OUTSIDE RECORDS SUMMARY | 2025-02-10 20:41 | XMS_ITS | Clinical Summary ---
Author Organization [employer] Address [address] [place] [address] 7t [place] [address] Care Team Providers Care Stationary Fireman Name Role Phone Name, Beau FRANKS Primary Care Provider [phone] Allergies Active Allergy Reactions Criticality Noted Date [...] NEEDED 10 tablet 2 12/13/19 24 Active Antacid Calcium 500 MG chewable tablet [...] Once per day. 30 tablet 09/05/19 25 2025 Active ferrous sulfate (Fe Tabs) 325 (65 Fe) MG EC tablet Take 1 tablet (325 mg) by mouth with breakfast. Do not crush, chew, or split. 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) TAKE 1 CAPSULE BY MOUTH THREE TIMES DAILY 90 capsule 10/29/19 25 Active magnesium oxide (Mag-Ox) 400 MG tablet TAKE 1 TABLET BY MOUTH THREE TIMES DAILY 90 tablet 3 5 4:57 PM EST 11/03/19 25 Active pravastatin (Pravachol) 20 MG tablet TAKE 1 TABLET BY MOUTH AT BEDTIME 90 tablet 1 12/15/19 25 Active albuterol (2.5 MG/3ML) 0.083% nebulizer solutionIndica tions:Asthma, unspecified asthma severity, unspecified whether complicated, unspecified whether persistent USE 3 ML VIA NEBULIZER EVERY MORNING AND EVERY AFTERNOON AND EVERY NIGHT AT BEDTIME 90 mL 1 01/07/20 25 Active ketoconazole (NIZOral) 2 % shampooIndicat ions:Seborrhei c dermatitis APPLY TOPICALLY 2 TIMES A WEEK 120 mL 2 01/07/20 25 Active Ventolin HFA 108 (90 Base) MCG/ACT inhalerIndicat ions:Asthma, unspecified asthma severity, unspecified whether complicated, unspecified whether persistent INHALE 2 PUFFS BY MOUTH EVERY 4 TO 6 HOURS NEEDED 18 g 1 01/20/20 25 Active spironolactone (Aldactone) 25 MG tablet TAKE 1 TABLET(25 MG) BY MOUTH DAILY 90 tablet 1 01/20/20 25 Active sodium chloride ([place] Nasal [place]) 0.65 % nasal spray Administer 1 spray into each nostril if needed for congestion. 30 mL 12 02/11/20 25 2025 Active predniSONE (Deltasone) 20 MG tablet Take 2 tablets (40 mg) by mouth Once per day for 5 days. 10 tablet 02/11/20 25 2024 Active ipratropium-al buterol (Duo-Neb) 0.5-2.5 mg/3 mL nebulizer solution Take 3 mL by nebulization every 6 (six) hours if needed for wheezing or shortness of breath. Do not use with your albuterol nebules 180 mL 02/11/20 25 2025 Active spironolactone (Aldactone) 25 MG tablet Take 1 tablet (25 mg) by mouth every other day. 01/30/20 24 2024 Discontinued Ventolin HFA 108 (90 Base) MCG/ACT inhalerIndicat ions:Asthma, unspecified asthma severity, unspecified whether complicated, unspecified whether persistent INHALE 2 PUFFS BY MOUTH EVERY 4 TO 6 HOURS NEEDED 18 g 1 12/15/19 25 2024 Discontinued(R eorder (will not trigger notification to Pharmacy)) Hospital, Clinic, or Other Facility Administered Medication Ordered Dose Route Frequency Start Date End Date Status albuterol (2.5 MG/3ML) 0.083% nebulizer solution 3 mLIndications:SOB (shortness of breath) 3 mL NEBULIZATION Once 02/10/2025 02/10/2025 Ended Active Problems Problem Noted Date Diagnosed Date Acid reflux 11/19/2024 Overview (11/19/2024): Continue to avoid culprits, PPI Acute hypoxemic respiratory failure ([facility]) Lumbar radiculopathy, chronic 11/19/2024 Cirrhosis ([facility]) 11/19/2024 Overview (11/19/2024): Abstain from alcohol- Weight [...] it until Saturday when he will see hydraulic barker operator, as much as possible, I gave [...] Encounters Date Type Department Care Team Description 02/10/2025 11:00 AM EST Office Visit [facility] MED[facility] [address] [place] [phone] Sarina Donato FNP SOB (shortness of breath) (Primary Dx); Sore throat (viral); Productive cough 02/10/2025 Travel 02/09/2025 Telephone [facility] WALK-IN CENTER [address] [place] [address] Beau Stewart MD Chart Prep 02/08/2025 Telephone [facility] MEDICINE [address] [place] [address] Beau Stewart MD Nurse Triage 02/05/2025 Telephone [facility] [address] [place] [address] Erlinda Swain [place] dec recalls 01/27/2025 Telephone [facility] [address] [place] [address] Beau Stewart MD Durable Medical Equipment 01/19/2025 Refill [facility] [address] [place] [address] Beau Stewart MD 01/14/2025 Refill [facility] [address] [place] [address] Beau Stewart MD Asthma, unspecified asthma severity, unspecified whether complicated, unspecified whether persistent 01/12/2025 Refill [facility] [address] [place] [address] Beau Stewart MD Asthma, unspecified asthma severity, unspecified whether complicated, unspecified whether persistent 01/11/2025 Orders Only GENERIC EXTERNAL DATA DEPARTMENT Provider, Generic External Data 01/05/2025 Refill [facility]BILE [facility]INE CLINIC [address] [place] [address] Beau Stewart MD Asthma, unspecified asthma severity, unspecified whether complicated, unspecified whether persistent; Seborrheic dermatitis 12/12/2024 Refill [facility] [address] [place] [address] Beau Stewart MD Asthma, unspecified asthma severity, unspecified whether complicated, unspecified whether persistent 12/11/2024 Telephone [facility] [address] [place] [address] Beau Stewart MD Med Refill 12/08/2024 Refill [facility] [address] [place] [address] Beau Stewart MD Asthma, unspecified asthma severity, unspecified whether complicated, unspecified whether persistent 11/25/2024 Refill [facility] [address] [place] [address] Beau Stewart MD Asthma, unspecified asthma severity, unspecified whether complicated, unspecified whether persistent 11/19/2024 11:30 AM EDT Office Visit [address] [address] Beau Stewart MD Heart failure with preserved ejection fraction, unspecified HF chronicity ([facility]) (Primary Dx); Type 2 diabetes mellitus with other specified complication, with long-term current use of insulin ([facility]); Anemia, unspecified type; Depression, unspecified depression type 11/19/2024 Orders Only GENERIC EXTERNAL DATA DEPARTMENT Provider, Generic External Data 11/19/2024 Travel 11/18/[address] [address] Beau Stewart MD CHARTPREP 11/18/[address] [address] Beau Stewart MD Durable Medical Equipment from Last 3 Months Immunizations Immunization Administration [...] Mass Index 48.03 02/10/2025 10:47 AM EST Plan of Treatment Upcoming Encounters Date Type Department Care Team (Late st Contact Info) Description 02/17/2025 11:30 AM EST Clinical Support [facility] MEDICINE [address] [place] [address] 04/20/2025 1:00 PM EST Office Visit [facility] OPTOMETRY [address] [place] [address] Alvin, Florecita, OD [address] [place] [address] 04/26/2025 3:30 PM EST Office Visit [facility] MED[facility]INE [address] [place] [address] Name, MD Beau [address] [place] [address] Health Maintenance Due Date Last Done Comments [...] 05/09/2020 Influenza Vaccine (#1) 2024 11/23/2011, 2007 SDOH Screening 01/28/2025 01/29/2024 Eye Exam 03/05/2025 03/05/2024, 10/2024, 03/05/2024, Additional history exists Diabetes: Foot Exam 03/27/2025 03/27/2024, 03/27/2024, 03/27/2024, Additional history exists Depression Monitoring 05/19/2025 11/19/2024, 025 Diabetes: Hemoglobin A1C 05/19/2025 025, 07/07/2024, 01/01/2024, Additional history exists Lipid Panel 07/07/2025 07/07/2024, 02/26, 11/28/2020, Additional history exists Disability Screening 09/04/2025 09/04/2024 Diabetes: Urine Protein Screening 10/14/2025 10/14/2024, 08/24/2024, 07/07/2024, Additional history exists Alcohol/Substance Use Screening 02/10/2026 02/10/2025 Tobacco Screening 02/10/2026 02/10/2025 Dental X-Ray: Full Mouth 09/27/2026 09/27/2023, 10/2022 [...] Weekly blood pressure task No Farzaneh Ge Patient has chronic kidney disease Care Plan Patient has chronic kidney disease No Farzaneh Ge Patient has chronic kidney disease Care Plan Patient has chronic kidney disease No Farzaneh Ge Weekly blood pressure task [...] chronic kidney disease No Sergey Camacho MA Procedures Procedure Name Priority Date/Time Associated Diagnosis [...] 02/10/2025 10:54 AM EST Sore throat (viral) PSA, TOTAL Routine 01/11/2025 3:30 PM EST GLUCOSE, WHOLE BLOOD Routine 11/19/2024 2:14 PM EDT POCT GLYCATED HEMOGLOBIN, TOTAL Routine 11/19/2024 11:42 AM EDT Type 2 diabetes mellitus with other specified complication, with long-term current use of insulin ([facility]) POCT GLUCOSE Routine 11/19/2024 11:40 AM EDT Type 2 diabetes mellitus with other specified complication, with long-term current use of insulin ([facility]) PROTEIN CREATININE RATIO, URINE Routine 10/14/2024 [...] Recently Relevant to Health Maintenance Results * XR Chest 2 Views (02/10/2025 4:30 PM EST) Anatomical Region Laterality Modality Chest Radiographic Mira ging 02/10/2025 4:30 PM EST Narrative 02/10/2025 4:45 [place] [address] XRay Report Signed Patient: Manjit May MR#: [id number] [birth year] : 1970 Acct:[id number] Age/Sex: 55 / M ADM Date: 02/10/25 Loc: HO.HHCX Attending Dr: Sarina GREEN Ordering Physician: Sarina Donato Date of Service: 02/10/25 Procedure(s): XR chest 2V Accession Number(s): [id number] cc: Beau Stewart MD; Sarina Donato Reason for Exam: increasing productive [...] OV> 02/10/25 1643 DD/ 1630 TD/TT: 02/10/25 163 Block Splitter Operator: NICOLAS Procedure Note Donotuseinterpreter, Image - 02/10/2025 [facility] [address] [place] [address] XRay Report Signed Patient: Manjit May AMR#: [id number] [birth year] : 1970Acct:[id number] Age/Sex: 55 / MADM Date: 02/10/25 Loc: .HHCX Attending Dr: Sarina GREEN Ordering Physician: Sarina Donato Date of Service: 02/10/25 Procedure(s): XR chest 2V Accession Number(s): [id number] cc: Name,Beau FRANKS; Sarina Donato Reason for [...] 02/10/25 1643 DD/ 1630 TD/TT: 02/10/25 1631 Block Splitter Operator: NICOLAS Sarina GREEN IMG XR PROCEDURES Final Result * POCT Rapid Influenza B LUDWIG ID NOW (02/10/2025 11:01 AM EST) Influenza B Negative Negative, Indeterminate [facility] QC Media Lot # [id number] [facility] Lot# Expiration Date [facility] Swab 02/10/2025 11:0 1 AM EST Sarina Okhipo RAGMAN POINT OF CARE TEST ENTER/EDIT ORDERABLES Final Result Performing Organization Address [facility] Co de Phone Number [facility] [address] [place] [phone] * POCT Rapid Influenza A LUDWIG ID NOW (02/10/2025 11:00 AM EST) [facility] Influenza A Negative Negative, Indeterminate [facility] QC Media Lot # [id number] [facility] Lot# Expiration Date [facility] Swab 02/10/2025 11:0 0 AM EST Sarina Okhipo RAGMAN POINT OF CARE TEST ENTER/EDIT ORDERABLES Final Result Performing Organization Address [facility] de Phone Number [facility] [address] [place] [phone] * POCT Rapid Covid-19 BinaxNOW (02/10/2025 10:59 AM EST) Pathologist [facility] Rapid COVID Ag Negative QC Media Lot # [id number] Lot# Expiration Date Swab 02/10/2025 10:5 9 AM EST Sarina Okhipo RAGMAN POINT OF CARE TEST ENTER/EDIT ORDERABLES Final Result * POCT Rapid Strep A LUDWIG ID NOW (02/10/2025 10:54 AM EST) Pathologist [facility] Rapid Strep A Screen Negative Negative, None Detected QC Media Lot # [id number] Lot# Expiration Date Swab 02/10/2025 10:5 4 AM EST us Sarina Donato RAGMAN POINT OF CARE TEST ENTER/EDIT ORDERABLES Edited Result - Final * PSA,Total (01/11/2025 3:30 PM EST) Pathologist [facility] Prostate Specific Antigen 0.32 <0.05 - 4.0 ng/mL [facility] Comment:PSA methodology: Abb michelle Alinity i ChemiluminescentMicroparticle Immunoassay (CMIA) 01/11/2025 3:30 PM EST 01/11/2025 3:30 PM EST Generic External Data Provider LAB BLOOD ORDERAB LES Final Result Performing Organization Address City/[facility]/ZIP Co de Phone Number [facility] [address] [place] [phone] * (ABNORMAL) Glucose, Whole Blood (11/19/2024 2:14 PM EDT) Pathologist [facility] Glucose, Whole Blood 267(H) 60 - 115 mg/dL [facility] Comment:METER #: [id number] Testing performed in the Endocrinology Department [address] , [address], [facility]. 11/19/2024 2:14 PM EDT 11/19/2024 2:20 PM EDT Generic External Data Provider LAB BLOOD ORDERAB LES Final Result [facility] [address] [place] [address] [phone] * (ABNORMAL) POCT Hgb A1c (11/19/2024 11:42 AM EDT) Pathologist [facility] Hemoglobin A1C 6.7(A) 4.0 - 5.7 % QC Media Lot # [id number] Lot# Expiration Date 05,373 Blood 11/19/2024 11:4 2 AM EDT Beau Stewart MD POINT OF CARE TEST ENTER/EDIT OR DERABLES Final Result * (ABNORMAL) POCT Glucose (11/19/2024 11:40 AM EDT) Pathologist [facility] Glucose Blood, POC 204(A) 60 - 200 mg/dL QC Media Lot # [id number] Lot# Expiration Date Blood Capillary blood specimen / Unknown 11/19/2024 11:40 AM EDT us Beau Name POINT OF CARE TEST ENTER/EDIT OR DERABLES Final Result * Protein Creatinine Ratio, Urine (10/14/2024 1:50 PM EDT) Pathologist [facility] Creatinine, Urine 37.57 mg/dL [facility] Protein, Total, Random Urine <7 <12 mg/dL [facility] Protein/Creatin ine Ratio, Ur TNP <0.2 [facility] Comment:Unable to calculate urine protein creatinine ratio due tolow creatinine or protein result. 10/14/2024 1:50 PM EDT 10/14/2024 2:23 PM EDT Generic External Data Provider LAB URINE ORDERAB LES Final Result [facility] [address] [place] [phone] * (ABNORMAL) Lipid Panel, Standard (07/07/2024 3:17 PM EDT) Triglycerides 195(H) <150 mg/dL [facility] Comment:Desirable Triglyceri de: less than 150 mg/dLBorderline High Triglyceride 150-199 mg/dLHigh Triglyceride: 200-499 mg/dLVery High Triglyceride: greater than or equal to 5OO mg/dL Cholesterol 128 <200 mg/dL [facility] Comment:Desirable Cholestero l: less than 200 mg/dLBorderline High Cholesterol: 200-239 mg/dLHigh Cholesterol: greater than 239 mg/dL LDL Cholesterol Calculated 53 <100 mg/dL [facility] Comment:Desirable LDL: less than 100 mg/dLNear Optimal/Above Optimal LDL: 110- 129 mg/dLBorderline High LDL: 130-159 mg/dLHigh LDL: 160-189 mg/dLVery High LDL: greater than or equal to 190 mg/dL HDL Cholesterol 36(L) >40 mg/dL [facility] Comment:Desirable HDL: great er than 40 mg/dL Note: This HDL assay may give artificially low results in patients with liver disease. 07/07/2024 3:17 PM EDT 07/07/2024 3:17 PM EDT Generic External Data Provider LAB BLOOD ORDERAB LES Final Result Performing Organization Address [facility]/ZIP Co de Phone Number [facility] [address] [place] [phone] * Hepatitis C Antibody with Reflex to HCV, RNA, Quantitative, Real-Time PCR (11/06/2023 3:26 PM EDT) Hepatitis C Antibody Nonreactive Nonreactive [facility] Comment:Antibodies to HCV no t detected; does not exclude early acuteHCV infection. Blood Venous blood specimen / Unknown 11/06/2023 3:26 PM EDT 11/06/2023 3:58 PM EDT Beau Stewart MD LAB BLOOD ORDERABLES Final Resul t Performing Organization Address [facility] Co de Phone Number [facility] [address] [place] [phone] * Hm Colonoscopy (06/09/2020 2:16 PM EDT) Colonoscopy Normal Normal Narrative Radha Aviles - 06/09/2020 2:16 PM EDT Recommended 10 year follow up ([facility] Historical Provider HEALTH MAINTENANCE Final Result from [...] 02/09/2025 Patient has chronic kidney disease 02/09/2025 Insurance [facility] AD[facility] Care Teams Stationary Fireman Relationship Specialty Start Date End Date Name, MD Beau [address] [place] [phone] PCP - General Family Medicine 06/01/15
== END 2025-02-10 15:49 | disposition home or self-care (01) ==
LOC: HO.HHCX 15:48
PROVIDERS: PCP Internal Medicine Geriatric Medicine; Visit Provider Nurse Practitioner Family
DX: R06.02 Shortness of breath (principal); R05.9 Cough, unspecified
CPT/HCPCS: 71046

== ENCOUNTER → 2025-02-10 16:12 | Outpatient (BNV) | payer MEDICAID, SELFPAY | PROVIDERS: PCP Internal Medicine Geriatric Medicine; Visit Provider Radiology Diagnostic Radiology | DX: R05.9 Cough, unspecified (principal); R06.02 Shortness of breath | CPT/HCPCS: 71046 ==

== ENCOUNTER 2025-02-11 12:12 | Outpatient (REF) | payer MEDICAID, SELFPAY ==
--- OUTSIDE RECORDS SUMMARY | 2025-02-10 11:00 | XMS_ITS | Encounter Summary ---
Author Organization [employer] Address [address] [place] [address] 7 [place] [address] Care Team Providers Care Health Sanitarian Name Role Phone Name, Beau FRANKS Primary Care Provider [phone] Reason for Visit * Reason Comments sick Encounter Details Date Type Department Care Team ([facility] st Contact Info) Description 02/10/2025 11:00 AM EST Office Visit [facility] MEDICINE [address] [place] [address] Sarina Donato FNP [address] [place] [address] SOB (shortness of breath) (Primary Dx); Sore throat (viral); Productive cough Social History Tobacco Use Types Packs/Day Years Used Date Smoking Tobacco: Never Passive Smoke Exposure: Never Smokeless Tobacco: Never Alcohol Use Standard Drinks/Week Comments Never 0 (1 standard drink = 0.6 oz pur e alcohol) Alcohol Answer Date Recorded How often do you have a drink containing alcohol ? 0 02/10/2025 How many drinks containing a lcohol do you have on a typical day when you are drinking? 0 02/10/2025 How often do you have six or more drinks on one occasion? 0 02/10/2025 Depression Answer Date Recorded Patient Health Questionnaire-9 Score 11/19/2024 Patient Health Questionnaire-9 Score 11/19/2024 Last PHQ-9: Questionnaire Data Not on [...] Sign Reading Time Taken Comments Blood Pressure 132/80 02/10/2025 11:28 AM EST Pulse 118 02/10/2025 10:47 AM EST Temperature 36.9 C (98.5 F) 02/10/2025 10:47 AM EST Respiratory Rate 24 02/10/2025 10:47 AM EST Oxygen Saturation 94% 02/10/2025 10:47 AM EST Inhaled Oxygen Concentration - - Weight 135 kg (297 lb 9.6 oz) 02/10/2025 10:47 A M EST Height 167.6 cm (5' 6 ) 02/10/2025 10:47 AM EST Body Mass Index 48.03 02/10/2025 10:47 AM EST documented in this encounter Plan of Treatment Upcoming Encounters Date Type Department Care Team (Late st Contact Info) Description 02/17/2025 11:30 AM EST Clinical Support [facility] MEDICINE [address] [place] [address] 04/20/2025 1:00 PM EST Office Visit [facility] OPTOMETRY [address] [place] [address] Florecita Esquivel, OD [address] [place] [address] 04/26/2025 3:30 PM EST Office Visit [facility] MEDICINE [address] [place] [address] Name, MD Beau [address] [place] [address] Scheduled Orders Name Type Priority Associated Diagnoses Orde r Schedule B Type Natriuretic Peptide (BNP) Lab Routine SOB (shortness of breath) Expected: 02/10/2025 (Approximate), Expires: 02/10/2026 Culture, Sputum/Lower Respiratory Microbiology Routine Productive cough Expected: 02/10/2025 (Approximate), Expires: 02/10/2026 documented as of this encounter Goals Goal [...] Care Plan Weekly blood pressure task No Karolina Nava Weekly blood pressure task Care Plan Weekly blood pressure task No Karolina Nava Patient has chronic kidney disease Care Plan Patient has chronic kidney disease No Karolina Nava Patient has chronic kidney disease Care Plan Patient has chronic kidney disease No Karolina Nava Weekly blood pressure task Care Plan Weekly blood pressure task No Erlinda Swain MA Weekly blood pressure task Care Plan Weekly blood pressure task No Erlinda Swain MA Patient has chronic kidney disease Care Plan Patient has chronic kidney disease No Erlinda Swain MA Patient has chronic kidney disease Care Plan Patient has chronic kidney disease No Erlinda Swain MA Weekly blood pressure task Care Plan Weekly blood pressure task No Colon Cole, Farzaneh Weekly blood pressure task Care Plan Weekly blood pressure task No Colon Cole, Farzaneh Patient has chronic kidney disease Care Plan Patient has chronic kidney disease No Colon Cole, Farzaneh Patient has chronic kidney disease Care Plan Patient has chronic kidney disease No Colon Douglas Farzaneh Weekly blood pressure task Care Plan Weekly blood pressure task No Sergey Camacho MA Weekly blood pressure task Care Plan Weekly blood pressure task No Sergey Camacho MA Patient has chronic kidney disease Care Plan Patient has chronic kidney disease No Sergey Camacho MA Patient has chronic kidney disease Care Plan Patient has chronic kidney disease No Sergey Camacho MA Weekly blood pressure task Care Plan Weekly blood pressure task No Sergey Camacho MA Weekly blood pressure task Care Plan Weekly blood pressure task No Sergey Camacho MA Patient has chronic kidney disease Care Plan Patient has chronic kidney disease No Sergey Camacho MA Patient has chronic kidney disease Care Plan Patient has chronic kidney disease No Sergey Camacho MA documented as of this encounter Procedures Procedure Name Priority Date/Time Associated Diagnosis Comments XR CHEST 2 VIEWS Routine 02/10/2025 4:30 PM EST SOB (shortness of breath) POCT INFLUENZA B (ID NOW RAPID MOLECULAR) Routine 02/10/2025 11:01 AM EST Sore throat (viral) POCT INFLUENZA A (ID NOW RAPID MOLECULAR) Routine 02/10/2025 11:00 AM EST Sore throat (viral) POCT RAPID COVID ANTIGEN Routine 02/10/2025 10:59 AM EST Sore throat (viral) POC LUDWIG ID NOW STREP A Routine 02/10/2025 10:54 AM EST Sore throat (viral) documented in this encounter Results * XR Chest 2 Views (02/10/2025 4:30 PM EST) Anatomical Region Laterality Modality Chest Radiographic [place] 02/10/2025 4:30 PM EST Narrative 02/10/2025 4:45 PM EST [address] [address] XRay Report Signed Patient: Manjit May MR#: [id number] 58 : 1970 Acct:[id number] Age/Sex: 55 / M ADM Date: 02/10/25 Loc: .HHCX Attending Dr: Sarina GREEN Ordering Physician: Sarina Donato Date of Service: 02/10/25 Procedure(s): XR chest 2V Accession Number(s): [id number] cc: Name,Beau FRANKS; Sarina Donato Reason for Exam: increasing productive cough and SOB ? pneumonia EXAMINATION: XR CHEST CLINICAL INFORMATION: increasing productive cough and SOB ? pneumonia COMPARISON: Previous chest x-ray July 2024 TECHNIQUE: 2 views of the chest were obtained. FINDINGS: No significant abnormality is noted involving the heart, lungs, mediastinum, bony thorax or soft tissues. There are degenerative changes of the spine. XR/XR chest 2V IMPRESSION: No evidence for acute disease in the chest. Electronically signed by: Cristal Acosta MD 02/10/2025 04:43 PM EST Dictated By: Cristal Acosta MD Signed By: <Electronically signed by Cristal Acosta MD in OV> 02/10/25 1643 DD/ 1630 TD/TT: 02/10/25 1631 Low Altitude Air Defense Gunner: NICOLAS Procedure Note Donotuseinterpreter, Image - 02/10/[address] [address] XRay Report Signed Patient: Manjit May AMR#: [id number] 58 : 1970Acct:[id number] Age/Sex: 55 / MADM Date: 02/10/25 Loc: HO.HHCX Attending Dr: Sarina GREEN Ordering Physician: Sarina Donato Date of Service: 02/10/25 Procedure(s): XR chest 2V Accession Number(s): [id number] cc: Name,Beau FRANKS; Sarina Donato Reason for Exam: increasing productive cough and SOB ? pneumonia EXAMINATION: XR CHEST CLINICAL INFORMATION: increasing productive cough and SOB ? pneumonia COMPARISON: Previous chest x-ray July 2024 TECHNIQUE: 2 views of the chest were obtained. FINDINGS: No significant abnormality is noted involving the heart, lungs, mediastinum, bony thorax or soft tissues. There are degenerative changes of the spine. XR/XR chest 2V IMPRESSION: No evidence for acute disease in the chest. Electronically signed by: Cristal Acosta MD 02/10/2025 04:43 PM EST RP Dictated By: Cristal Acosta MD Signed By: <Electronically signed by Cristal Acosta MD in OV> 02/10/25 1643 DD/ 1630 TD/TT: 02/10/25 1631 Low Altitude Air Defense Gunner: NICOLAS Sarina GREEN IMG XR PROCEDURES Final Result * POCT Rapid Influenza B LUDWIG ID NOW (02/10/2025 11:01 AM EST) [facility] Influenza B Negative Negative, Indeterminate [facility] QC Media Lot # [id number] [facility] Lot# Expiration Date , [facility] Swab 02/10/2025 11:0 1 AM EST Sarina GREEN POINT OF CARE TEST ENTER/EDIT ORDERABLES Final Result [facility] [address] [place] [phone] * POCT Rapid Influenza A LUDWIG ID NOW (02/10/2025 11:00 AM EST) [facility] Influenza A Negative Negative, Indeterminate [facility] QC Media Lot # [id number] [facility] Lot# Expiration Date [facility] Swab 02/10/2025 11:0 0 AM EST Sarina [employer] CRITICAL CARE TECHNICIAN POINT OF CARE TEST ENTER/EDIT ORDERABLES Final Result [facility] [address] [place] [phone] * POCT Rapid Covid-19 BinaxNOW (02/10/2025 10:59 AM EST) [facility] Rapid COVID Ag Negative QC Media Lot # [id number] Lot# Expiration Date Swab 02/10/2025 10:5 9 AM EST Sarina [employer] [facility] POINT OF CARE TEST ENTER/EDIT ORDERABLES Final Result * POCT Rapid Strep A LUDWIG ID NOW (02/10/2025 10:54 AM EST) [facility] Rapid Strep A Screen Negative Negative, None Detected QC Media Lot # [id number] Lot# Expiration Date Swab 02/10/2025 10:5 4 AM EST Sarina [employer] CRITICAL CARE TECHNICIAN POINT OF CARE TEST ENTER/EDIT ORDERABLES Edited Result - Final documented in this encounter Visit Diagnoses Diagnosis SOB (shortness of breath)- Primary Shortness of breath Sore throat (viral) Acute pharyngitis Productive cough Cough documented in this encounter Administered Medications Inactive Administered Medications - up to 3 most recent administrations Medication Order MAR Action Action Date Dose Rate Site albuterol (2.5 MG/3ML) 0.083% nebulizer solution 3 mL 3 mL, Nebulization, Once, On Sat02/10/25 at 1130, For 1 doseIndications:SOB (shortness of breath) Given 02/10/2025 11:43 AM EST 3 mL documented in this encounter Additional Health Concerns Active Problems Noted Date Diagnosed Date Help patients manage their type 2 diabetes 01/14 Weekly blood pressure task 01/14/2025 Help patients manage their type 2 diabetes 01/14 Patient has chronic kidney disease 01/14/2025 Weekly blood pressure task 01/14/2025 Patient has chronic kidney disease 01/14/2025 Weekly blood pressure task 01/27/2025 Weekly blood pressure task 01/27/2025 Patient has chronic kidney disease 01/27/2025 Patient has chronic kidney disease 01/27/2025 Weekly blood pressure task 02/05/2025 Weekly blood pressure task 02/05/2025 Patient has chronic kidney disease 02/05/2025 Patient has chronic kidney disease 02/05/2025 Weekly blood pressure task 02/08/2025 Weekly blood pressure task 02/08/2025 Patient has chronic kidney disease 02/08/2025 Patient has chronic kidney disease 02/08/2025 Weekly blood pressure task 02/09/2025 Weekly blood pressure task 02/09/2025 Patient has chronic kidney disease 02/09/2025 Patient has chronic kidney disease 02/09/2025 Weekly blood pressure task 02/09/2025 Weekly blood pressure task 02/09/2025 Patient has chronic kidney disease 02/09/2025 Patient has chronic kidney disease 02/09/2025 Assessment Noted Time PHQ-9 Depression Total Score: 25 025 11:48 AM EDT documented as of this encounter Care Teams Health Sanitarian Relationship Specialty Start Date End Date Name, MD Beau [address] [place] [phone] PCP - General Family Medicine 06/01/15 documented as of this encounter
[2025-02-11 12:26] LABS: MANUAL DIFF FLAG NO
[2025-02-11 12:49] LABS: Alanine Aminotransferase 26 U/L (0-40); Albumin Level 3.6 g/dL (3.5-5.0); Alkaline Phosphatase 173 U/L (39-117); Anion Gap 11 (12-20); Aspartate Amino Transferase 41 U/L (5-37); Blood Urea Nitrogen 19 mg/dL (9-16); Calcium 9.1 mg/dL (8.4-10.2); Carbon Dioxide 28 mmol/L (22-29); Chloride 102 mmol/L (96-108); Estimated Glomerular Filt Rate > 60; Potassium 4.2 mmol/L (3.3-5.1); Sodium 137 mmol/L (135-145); Total Protein 6.8 g/dL (6.5-8.0)
[2025-02-11 12:55] LABS: Hematocrit 36.0 % (42.0-52.0); Hemoglobin 12.1 g/dl (14.0-18.0); Imm Gran Abs Auto 0.03 X10*3/uL (0.00-0.03); Imm Gran Pct Auto 0.3 % (0.0-0.4); Lymphocytes Absolute Auto 2.5 X10*3/uL (1.2-4.9); Mean Corpuscular HGB Conc 33.6 g/dl (31.0-36.0); Mean Corpuscular Hemoglobin 30.4 pg (27.0-33.0); Mean Corpuscular Volume 90.5 fL (80.0-98.0); NRBC Abs Auto 0.000 X10*3/uL (0.0-0.012); NRBC Pct Auto 0.0 /100WBC (0.0-0.2); Platelet Count 316 X10*3/uL (160-400); Red Blood Count 3.98 X10*6/uL (4.60-5.80); White Blood Count 10.7 X10*3/uL (4.8-10.8)
[2025-02-11 13:02] LABS: Ferritin 269 ng/mL (20-250)
--- OUTSIDE RECORDS SUMMARY | 2025-02-11 16:06 | XMS_ITS | Encounter Summary ---
Author Organization [email or web address] Address [address] [place] [address] 7 [place] [address] Care Team Providers Care Industrial Health And Safety Professor Name Role Phone Name, Beau FRANKS Primary Care Provider [phone] Reason for Visit * Reason Onset Date Comments Chart Prep 02/09/2025 Encounter Details Date Type Department Care Team ([facility] st Contact Info) Description 02/09/2025 Telephone [facility] [address] [place] [address] Name, MD Beau 230 [place] [address] Chart Prep Social History Tobacco Use Types [...] 02/17/2025 11:30 AM EST Clinical Support [facility] 230 [place] [address] 04/20/2025 1:00 PM EST Office Visit [facility] [address] [place] [address] Florecita Esquivel, OD 230 [place] [address] 04/26/2025 3:30 PM EST Office Visit [facility] 230 [place] [address] Name, MD Beau 230 [place] [address] documented as of this encounter Goals Goal [...] documented as of this encounter Care Teams Industrial Health And Safety Professor Relationship Specialty Start Date End Date Name, MD Beau 230 [place] [address] PCP - General Family Medicine 06/01/15 documented as of this encounter
--- OUTSIDE RECORDS SUMMARY | 2025-02-11 16:06 | XMS_ITS | Encounter Summary ---
Author Organization [employer] Address [address] [place] [address] 7 [place] [address] Care Team Providers Care Metal Fence Erector Name Role Phone Name, Beau FRANKS Primary Care Provider [phone] Reason for Visit * Reason Onset Date Comments Nurse Triage 02/08/2025 Encounter Details Date Type Department Care Team ([facility] st Contact Info) Description 02/08/2025 Telephone [facility] [address] [place], [place] [phone] Name, MD Beau 230 [place] [address] Nurse Triage Social History Tobacco Use Types [...] caller accepted this outcome. Contact pt at [phone] documented in this encounter Plan of Treatment Upcoming Encounters Date Type Department Care Team (Late st Contact Info) Description 02/17/2025 11:30 AM EST Clinical Support [facility] 230 [place] [address] 04/20/2025 1:00 PM EST Office Visit [facility] [address] [place] [address] Florecita Esquivel, OD 230 [place] [address] 04/26/2025 3:30 PM EST Office Visit [facility] 230 [place] [address] Name, MD Beau 230 [place] [address] documented as of this encounter Goals Goal [...] documented as of this encounter Care Teams Metal Fence Erector Relationship Specialty Start Date End Date Name, MD Beau 230 [place] [address] PCP - General Family Medicine 06/01/15 documented as of this encounter
--- OUTSIDE RECORDS SUMMARY | 2025-02-11 16:06 | XMS_ITS | Encounter Summary ---
Author Organization [employer] Address [address] [place] [address] 7t [place] [address] Care Team Providers Care Watch Inspector Name Role Phone Name, Beau FRANKS Primary Care Provider [phone] Encounter Details Date Type Department Care Team [...] Description 02/17/2025 11:30 AM EST Clinical Support [facility] [address] [place] [address] 04/20/2025 1:00 PM EST Office Visit [facility] 267 [place] [address] Florecita Esquivel, OD 230 [place] [address] 04/26/2025 3:30 PM EST Office Visit [facility] [address] [place] [address] Name, MD Beau 230 [place] [address] documented as of this encounter Goals Goal [...] documented as of this encounter Care Teams Watch Inspector Relationship Specialty Start Date End Date Name, MD Beau [address] [place] [address] PCP - General Family Medicine 06/01/15 documented as of this encounter
--- OUTSIDE RECORDS SUMMARY | 2025-02-11 16:07 | XMS_ITS | Encounter Summary ---
Author Organization [employer] Address [address] [place] [address] 7 [place] [address] Care Team Providers Care Continuous Improvement Engineer Name Role Phone Name, Beau FRANKS Primary Care Provider [phone] Bambi Jauregui Unavailable Mechelle Dumont RN Unavailable Unavailable Reason for Visit * Reason Comments Med Refill Encounter Details Date Type Department Care Team (Late st Contact Info) Description 06/11/2022 Refill [facility] [address] [place] [address] Name, MD Beau 230 [place] [address] Iron deficiency Social History Tobacco Use Types [...] Description 02/17/2025 11:30 AM EST Clinical Support [facility] 230 [place], [place] [phone] 04/20/2025 1:00 PM EST Office Visit [facility] [address] [place], [place] [phone] Florecita Esquivel, OD 230 [place] [address] 04/26/2025 3:30 PM EST Office Visit [facility] [address] [facility] [place] [address] Name, MD Beau [address] [facility] [place] [address] documented as of this encounter Visit Diagnoses Diagnosis Iron deficiency Disorders of iron metabolism documented in this encounter Care Teams Continuous Improvement Engineer Relationship Specialty Start Date End Date Name, MD Beau [address] [facility] [place] [address] PCP - General Family Medicine 06/01/15 Bambi Jauregui Community Health Worker 06/27/2309/14 Mechelle Dumont RN Filteration Operator 06/27/23 09/15/23 documented as of this encounter
--- OUTSIDE RECORDS SUMMARY | 2025-02-11 16:07 | XMS_ITS | Encounter Summary ---
Author Organization [employer] Address [address] [place] [address] 7t [place] [address] Care Team Providers Care Railway Signal Electrician Name Role Phone Name, Beau FRANKS Primary Care Provider [phone] Bambi Jauregui Unavailable Mechelle Dumont RN Unavailable Unavailable Encounter Details Date Type Department Care Team ([facility] st Contact Info) Description 04/08/2023 Orders Only [facility] [address] [place], [place] [phone] Ekaterina Pappas LPN Social History Tobacco Use [...] Description 02/17/2025 11:30 AM EST Clinical Support [facility] [address] [place] [address] 04/20/2025 1:00 PM EST Office Visit [facility] 267 [place] [address] Alvin, Florecita, OD 230 [place] [address] 04/26/2025 3:30 PM EST Office Visit [facility] [address] [place] [address] Name, MD Beau [address] [place] [address] documented as of this encounter Visit Diagnoses Not on filedocumented in this encounter Additional Health Concerns Assessment Noted Time PHQ-9 Depression Total Score: 19 023 3:46 PM EDT documented as of this encounter Care Teams Railway Signal Electrician Relationship Specialty Start Date End Date Name, MD Beau [address] [place] [address] PCP - General Family Medicine 06/01/15 Bambi Jauregui Community Health Worker 06/27/2309/14 Mechelle Dumont RN Fish Hatchery Specialist 06/27/23 09/15/23 documented as of this encounter
--- OUTSIDE RECORDS SUMMARY | 2025-02-11 16:07 | XMS_ITS | Encounter Summary ---
Author Organization [employer] Address [address] [place] [address] 7 [place] [address] Care Team Providers Care Aix System Administrator Name Role Phone Name, Beau FRANKS Primary Care Provider [phone] Bambi Jauregui Unavailable Mechelle Dumont RN Unavailable Unavailable Encounter Details Date Type Department Care Team (Late st Contact Info) Description 03/02/2022 Orders Only [facility] [address] [place] [address] [phone] Lleia Moeller RN Social History Tobacco Use Types [...] 11:30 AM EST Clinical Support [facility] [address] [place] [address] 04/20/2025 1:00 PM EST Office Visit [facility] [address] [place] [address] [phone] Florecita Esquivel OD 230 [place] [address] 04/26/2025 3:30 PM EST Office Visit [facility] [address] [place] [address] Name, MD Beau 230 [place] [address] documented as of this encounter Visit Diagnoses Not on filedocumented in this encounter Care Teams Aix System Administrator Relationship Specialty Start Date End Date Name, MD Beau [address] [place] [address] PCP - General Family Medicine 06/01/15 Bambi Jauregui Community Health Worker 06/27/2309/14 Mechelle Dumont, ISABEL Biostatistics Manager 06/27/23 09/15/23 documented as of this encounter
--- OUTSIDE RECORDS SUMMARY | 2025-02-11 16:07 | XMS_ITS | Encounter Summary ---
Author Organization [employer] Address [address] [place] [address] 7 [place] [address] Care Team Providers Care Lithographic General Worker Name Role Phone Name, Beau FRANKS Primary Care Provider [phone] Bambi Jauregui Unavailable Mechelle Dumont RN Unavailable Unavailable Encounter Details Date Type Department Care Team (Late st Contact Info) Description 03/07/2022 Orders Only [facility] [address] [place] [address] [phone] Ekaterina Pappas LPN Social History Tobacco Use [...] Description 02/17/2025 11:30 AM EST Clinical Support [facility] [address] [place] [address] 04/20/2025 1:00 PM EST Office Visit [facility] [address] [place], [place] [phone] Florecita Esquivel OD 230 [place], [place] [phone] 04/26/2025 3:30 PM EST Office Visit [address] [address] Name, MD Beau 230 [place], [place] [phone] documented as of this encounter Visit Diagnoses Not on filedocumented in this encounter Care Teams Lithographic General Worker Relationship Specialty Start Date End Date Name, MD Beau [address] [place] [address] PCP - General Family Medicine 06/01/15 Bambi Jauregui Community Health Worker 06/27/2309/14 Mechelle Dumont, ISABEL Director Of Head [employer] 06/27/23 09/15/23 documented as of this encounter
--- OUTSIDE RECORDS SUMMARY | 2025-02-11 16:07 | XMS_ITS | Encounter Summary ---
Author Organization [employer] Address [address] [place] [address] 7t [place] [address] Care Team Providers Care Pipe Finishing Supervisor Name Role Phone Name, Beau FRANKS Primary Care Provider [phone] Encounter Details Date Type Department Care Team (Late st Contact Info) Description 02/11/2025 Refill [facility] 230 [place] [address] She Jc RN Asthma, unspecified asthma severity, unspecified whether complicated, [...] encounter Miscellaneous Notes * Telephone Encounter - She Jc RN - 02/11/2025 9:57 AM EST Tc to pt to let them know per PCP Please advise patient xray does not show any acute illness no pneumonia. I sent 2 meds to the pharmacy Duoneb nebules and prednisone PO. He should stop using the albuterol neb and use the duoneb until his SOB gets better. He can resume on the albuterol neb when he gets better. If he experiences any side effects he should inform the clinic. Also I put in two labwork. He should go to the lab Thank you! .and Can you please inform Manjit his x-ray does not show any acute illness such as PNA. He should continue to use all his medication especially his asthma medas prescribed. Should return to the clinic if he feels worse . Pt reports they're requesting refills for the ventolin and entry writer advised there is a refill for the medication. Pt reports they already picked up the refill and entry writer advised we'll follow up with the pharmacy. Pt verbalized and call disconnected. Tc to pharmacy on file for who reported pt received the first script on 01/19/25 and then the refill on 02/02/25. They report that the scripts are only 16 days supply. Pt will be due for a new script on 02/18/25 and medication pended to PCP for review. * Telephone Encounter - She Jc RN - 02/11/2025 9:50 AM EST ----- Message from Sarina Donato sent at 02/10/2025 6:41 PM EST ----- Please advise patient xray does not show any acute illness no pneumonia. I sent 2 meds to the pharmacy Duoneb nebules and prednisone PO. He should stop using the albuterol neb and use the duoneb until his SOB gets better. He can resume on the albuterol neb when he gets better. If he experiences any side effects he should inform the clinic. Also I put in two lab work. He should go to the lab Thank you! documented in this encounter Plan of Treatment Upcoming Encounters Date Type Department Care Team (Late st Contact Info) Description 02/17/2025 11:30 AM EST Clinical Support [facility] [address] [place] [address] 04/20/2025 1:00 PM EST Office Visit [facility] [address] [place] [address] Florecita Esquivel, OD 230 [place] [address] 04/26/2025 3:30 PM EST Office Visit [facility] [address] [place] [address] Name, MD Beau 230 [place] [address] documented as of this encounter Goals Goal [...] Care Plan Weekly blood pressure task No Collin Navalanda Patient has chronic kidney disease Care Plan Patient has chronic kidney disease No Collin Navalanda Patient has chronic kidney disease Care Plan [...] task Care Plan Weekly blood pressure task She Haley RN Weekly blood pressure task Care Plan Weekly blood pressure task No She Jc RN Patient has chronic kidney disease Care Plan Patient has chronic kidney disease No She Jc RN Patient has chronic kidney disease Care Plan Patient has chronic kidney disease No She Jc RN documented as of this encounter Visit Diagnoses [...] kidney disease 02/09/2025 Weekly blood pressure task 02/11/2025 Weekly blood pressure task 02/11/2025 Patient has chronic kidney disease 02/11/2025 Patient has chronic kidney disease 02/11/2025 Assessment Noted Time PHQ-9 Depression Total Score: 25 11/19/ 025 11:48 AM EDT documented as of this encounter Care Teams Pipe Finishing Supervisor Relationship Specialty Start Date End Date Name, MD Beau [address] [place] [address] PCP - General Family Medicine 06/01/15 documented as of this encounter
--- OUTSIDE RECORDS SUMMARY | 2025-02-11 16:07 | XMS_ITS | Clinical Summary ---
Author Organization [facility] Address [address] [place] [address] Phone Care Team Providers Care Mba Internship Name Role Phone Name, Beau FRANKS Primary Care Provider [phone] Medications albuterol (2.5 MG/3ML) 0.083% nebulizer solution [...] Insurance Medicaid [place] Care Teams Mba Internship Relationship Specialty Start Date End Date Name, MD Beau [address] [place] [address] PCP - General Internal Medicine 10/05/21
--- OUTSIDE RECORDS SUMMARY | 2025-02-11 16:07 | XMS_ITS | Encounter Summary ---
Author Organization [employer] Address [address] [place] [address] 7t [place] [address] Care Team Providers Care Jewelry Technician Name Role Phone Name, Beau FRANKS Primary Care Provider [phone] Reason for Visit * Reason Comments Med Refill Encounter Details Date Type Department Care Team ([facility] st Contact Info) Description 04/07/2024 Refill [facility] 230 [place], [place] [phone] Laura Russell MD 230 [place], [place] [phone] Asthma, unspecified asthma severity, unspecified whether complicated, [...] 11:30 AM EST Clinical Support [facility] [address] [place] [address] 04/20/2025 1:00 PM EST Office Visit [facility] [address] [place] [address] Alvin, Florecita, OD 230 [place] [address] 04/26/2025 3:30 PM EST Office Visit [facility] [address] [place] [address] Beau Stewart MD [address] [place] [address] documented as of this encounter Visit Diagnoses Diagnosis Asthma, unspecified asthma severity, unspecified whether complicated, unspecified whether persistent documented in this encounter Additional Health Concerns Assessment Noted Time PHQ-9 Depression Total Score: 24 024 3:46 PM EST documented as of this encounter Care Teams Jewelry Technician Relationship Specialty Start Date End Date Beau Stewart MD [address] [place] [address] PCP - General Family Medicine 06/01/15 documented as of this encounter
--- OUTSIDE RECORDS SUMMARY | 2025-02-11 16:07 | XMS_ITS | Encounter Summary ---
Author Organization [employer] Address [address] [place] [address] 7 [place] [address] Care Team Providers Care Ice Cream Man Name Role Phone Name, Beau FRANKS Primary Care Provider [phone] Bambi Jauregui Unavailable Mechelle Dumont RN Unavailable Unavailable Reason for Visit * Reason Comments Med Refill Encounter Details Date Type Department Care Team (Late st Contact Info) Description 05/28/2022 Refill [facility] [address] [place] [address] Name, MD Beau 230 [place] [address] Asthma, unspecified asthma severity, unspecified whether complicated, [...] Support [facility] [address] [place], [place] [phone] 04/20/2025 1:00 PM EST Office Visit [facility] OPT[facility] [address] [place] [address] Florecita Esquivel, OD 230 [place] [address] 04/26/2025 3:30 PM EST Office Visit [facility] [address] [place] [address] Name, MD Beau [address] [place] [address] documented as of this encounter Visit Diagnoses Diagnosis Asthma, unspecified asthma severity, unspecified whether complicated, unspecified whether persistent documented in this encounter Care Teams Ice Cream Man Relationship Specialty Start Date End Date Name, MD Beau [address] [place] [address] PCP - General Family Medicine 06/01/15 Bambi Jauregui Community Health Worker 06/27/2309/14 Mechelle Dumont, ISABEL Adjunct Political Science Instructor 06/27/23 09/15/23 documented as of this encounter
--- OUTSIDE RECORDS SUMMARY | 2025-02-11 16:07 | XMS_ITS | Encounter Summary ---
Author Organization [employer] Address [address] [place] [address] 7 [place] [address] Care Team Providers Care Crime Lab Analyst Name Role Phone Name, Beau FRANKS Primary Care Provider [phone] Bambi Jauregui Unavailable Mechelle Dumont RN Unavailable Unavailable Reason for Visit * Reason Comments Med Refill Encounter Details Date Type Department Care Team (Late st Contact Info) Description 06/08/2022 Refill [facility] [address] [place] [address] Name, MD Beau 230 [place] [address] Asthma, unspecified asthma severity, unspecified whether complicated, [...] Description 02/17/2025 11:30 AM EST Clinical Support [facility] 230 [place], [place] [phone] 04/20/2025 1:00 PM EST Office Visit [facility] OPT[facility] [address] [place] [address] Florecita Esquivel, OD 230 [place] [address] 04/26/2025 3:30 PM EST Office Visit [facility] [address] [place] [address] Name, MD Beau [address] [place] [address] documented as of this encounter Visit Diagnoses Diagnosis Asthma, unspecified asthma severity, unspecified whether complicated, unspecified whether persistent documented in this encounter Care Teams Crime Lab Analyst Relationship Specialty Start Date End Date Name, MD Beau [address] [place] [address] PCP - General Family Medicine 06/01/15 Bambi Jauregui Community Health Worker 06/27/2309/14 Mechelle Dumont, ISABEL Head Golf Professional 06/27/23 09/15/23 documented as of this encounter
--- OUTSIDE RECORDS SUMMARY | 2025-02-11 16:07 | XMS_ITS | Encounter Summary ---
Author Organization [employer] Address [address] [place] [address] 7 [place] [address] Care Team Providers Care Defense Attorney Name Role Phone Name, Beau FRANKS Primary Care Provider [phone] Reason for Visit * Reason Comments Med Refill Encounter Details Date Type Department Care Team ([facility] st Contact Info) Description 10/21/2024 Refill [facility] 230 [place], [place] [phone] Felecia Gunderson NP [address] [place] [address] Asthma, unspecified asthma severity, unspecified whether complicated, [...] Description 02/17/2025 11:30 AM EST Clinical Support [facility] [address] [place] [address] 04/20/2025 1:00 PM EST Office Visit [facility] [address] [place] [address] Alvin, Florecita, OD 230 [place] [address] 04/26/2025 3:30 PM EST Office Visit [facility] [address] [place] [address] Beau Stewart MD [address] [place] [address] documented as of this encounter Visit Diagnoses Diagnosis Asthma, unspecified asthma severity, unspecified whether complicated, unspecified whether persistent documented in this encounter Additional Health Concerns Assessment Noted Time PHQ-9 Depression Total Score: 24 024 3:46 PM EST documented as of this encounter Care Teams Defense Attorney Relationship Specialty Start Date End Date Beau Stewart MD [address] [place] [address] PCP - General Family Medicine 06/01/15 documented as of this encounter
--- OUTSIDE RECORDS SUMMARY | 2025-02-11 16:07 | XMS_ITS | Encounter Summary ---
Author Organization [employer] Address [address] [place] [address] 7t [place] [address] Care Team Providers Care Automobile Technician Name Role Phone Name, Beau FRANKS Primary Care Provider [phone] Bambi Jauregui Unavailable Mechelle Dumont RN Unavailable Unavailable Encounter Details Date Type Department Care Team (Late st Contact Info) Description 03/26/2022 Orders Only [facility] [address] [place], [place] [phone] Kindra Woodall LPN Social History Tobacco Use [...] Description 02/17/2025 11:30 AM EST Clinical Support [facility] MED[facility] [address] [place] [address] [phone] 04/20/2025 1:00 PM EST Office Visit [facility] OPT[facility] [address] [place], [place] [phone] Florecita Esquivel OD 230 [place], [place] [phone] 04/26/2025 3:30 PM EST Office Visit [facility] 230 [place], [place] [phone] Name, MD Beau 230 [place] [address] documented as of this encounter Visit Diagnoses Not on filedocumented in this encounter Care Teams Automobile Technician Relationship Specialty Start Date End Date Name, MD Beau [address] [place] [address] PCP - General Family Medicine 06/01/15 Bambi Jauregui Community Health Worker 06/27/2309/14 Mechelle Dumont, ISABEL Cabinet Finisher 06/27/23 09/15/23 documented as of this encounter
--- OUTSIDE RECORDS SUMMARY | 2025-02-11 16:07 | XMS_ITS | Encounter Summary ---
Author Organization [employer] Address [address] [place] [address] 7t [place] [address] Care Team Providers Care Biomedical Equipment Tech Name Role Phone Name, Beau FRANKS Primary Care Provider [phone] Bambi Jauregui Unavailable Mechelle Dumont RN Unavailable Unavailable Encounter Details Date Type Department Care Team (Late st Contact Info) Description 07/02/2022 Orders Only [facility] MEDICINE [address] [place], [place] [phone] Ekaterina Pappas LPN Social History Tobacco Use [...] 02/17/2025 11:30 AM EST Clinical Support [facility] MEDICINE [address] [place], [place] [phone] 04/20/2025 1:00 PM EST Office Visit [facility] OPTOMETRY [address] [place], [place] [phone] Alvin, Florecita, OD 230 [place] [address] 04/26/2025 3:30 PM EST Office Visit [facility] MEDICINE 230 [place] [address] [place], [place] [address] documented as of this encounter Visit Diagnoses Not on filedocumented in this encounter Care Teams Biomedical Equipment Tech Relationship Specialty Start Date End Date Name, MD Beau [address] [place] [address] PCP - General Family Medicine 06/01/15 Bambi Jauregui Community Health Worker 06/27/2309/14 Mechelle Dumont, RN Technology Solutions Architect 06/27/23 09/15/23 documented as of this encounter
--- OUTSIDE RECORDS SUMMARY | 2025-02-11 16:07 | XMS_ITS | Encounter Summary ---
Author Organization [employer] Address [address] [place] [address] 7 [place] [address] Care Team Providers Care Dewatering Filtering Supervisor Name Role Phone Name, Beau FRANKS Primary Care Provider [phone] Bambi Jauregui Unavailable Mechelle Dumont RN Unavailable Unavailable Reason for Visit * Reason Onset Date Comments Med Refill 08/21/2022 Encounter Details Date Type Department Care Team ([facility] st Contact Info) Description 08/21/2022 Telephone [facility] MEDICINE 230 [place] [address] Name, MD Beau 230 [place] [address] Med Refill Social History Tobacco Use Types [...] Description 02/17/2025 11:30 AM EST Clinical Support [facility] MEDICINE 230 [place] [address] 04/20/2025 1:00 PM EST Office Visit [facility] OPTOMETRY [address] [place] [address] Alvin, Florecita, OD 230 [place] [address] 04/26/2025 3:30 PM EST Office Visit [facility] MEDICINE 230 [place] [address] Name, MD Beau 230 [place] [address] documented as of this encounter Visit Diagnoses Not on filedocumented in this encounter Care Teams Dewatering Filtering Supervisor Relationship Specialty Start Date End Date Name, MD Beau [address] [place] [address] PCP - General Family Medicine 06/01/15 Bambi Jauregui Community Health Worker 06/27/2309/14 Mechelle Dumont, ISABEL Glycerin Operator 06/27/23 09/15/23 documented as of this encounter
--- OUTSIDE RECORDS SUMMARY | 2025-02-11 16:07 | XMS_ITS | Encounter Summary ---
Author Organization [employer] Address [address] [place] [address] 7 [place] [address] Care Team Providers Care Real Estate Valuer Name Role Phone Name, Beau FRANKS Primary Care Provider [phone] Bambi Jauregui Unavailable Mechelle Dumont RN Unavailable Unavailable Encounter Details Date Type Department Care Team (Late st Contact Info) Description 08/06/[address] [facility] MEDICINE [address] [place] [address] [phone] Name, MD Beau 230 [place], [place] [phone] Social History Tobacco Use Types Packs/Day Years [...] Description 02/17/2025 11:30 AM EST Clinical Support [facility] MEDICINE 230 [place], [place] [phone] 04/20/2025 1:00 PM EST Office Visit [facility] OPTOMETRY 267 [place], [place] [phone] Florecita Esquivel, OD 230 [place], [place] [phone] 04/26/2025 3:30 PM EST Office Visit [facility] MEDICINE [address] [place] [address] Name, [place] [address] documented as of this encounter Procedures Procedure Name Priority Date/Time Associated Diagnosis Comments COLONOSCOPY Routine 06/09/2020 2:16 PM EDT documented in this encounter Results * Colonoscopy (06/09/2020 2:16 PM EDT) Colonoscopy Normal Normal Narrative TraciDilshadba - 06/09/2020 2:16 PM EDT Recommended 10 year follow up ([facility]) us Historical Provider HEALTH MAINTENANCE Final Result documented in this encounter Visit Diagnoses Not on filedocumented in this encounter Care Teams Real Estate Valuer Relationship Specialty Start Date End Date Name, [place] [address] PCP - General Family Medicine 06/01/15 Bambi Jauregui Community Health Worker 06/27/2309/14 Mechelle Dumont, ISABEL Haul Cane Brakeman 06/27/23 09/15/23 documented as of this encounter
--- OUTSIDE RECORDS SUMMARY | 2025-02-11 16:07 | XMS_ITS | Encounter Summary ---
Author Organization [employer] Address [address] [place] [address] 7 [place] [address] Care Team Providers Care Tape Transferrer Name Role Phone Name, Beau FRANKS Primary Care Provider Reason for Visit * Reason Comments Med Refill Encounter Details Date Type Department Care Team ([facility] st Contact Info) Description 12/12/2024 Refill [facility] MEDICINE 230 [place], [place] [phone] Name, MD Beau 230 [place] [address] Asthma, unspecified asthma severity, unspecified whether complicated, [...] 02/17/2025 11:30 AM EST Clinical Support [facility] MEDICINE [address] [place] [address] 04/20/2025 1:00 PM EST Office Visit [facility] OPTOMETRY 267 [place] [address] Alvin, Florecita, OD 230 [place] [address] 04/26/2025 3:30 PM EST Office Visit [facility] MEDICINE [address] [place] [address] Beau Stewart MD [address] [place] [address] documented as of this encounter Visit Diagnoses Diagnosis Asthma, unspecified asthma severity, unspecified whether complicated, unspecified whether persistent documented in this encounter Additional Health Concerns Assessment Noted Time PHQ-9 Depression Total Score: 25 025 11:48 AM EDT documented as of this encounter Care Teams Tape Transferrer Relationship Specialty Start Date End Date Beau Stewart MD [address] [place] [address] PCP - General Family Medicine 06/01/15 documented as of this encounter
--- OUTSIDE RECORDS SUMMARY | 2025-02-11 16:07 | XMS_ITS | Encounter Summary ---
Author Organization [employer] Address [address] [place] [address] 7 [place] [address] Care Team Providers Care Environmental Studies Professor Name Role Phone Name, Beau FRANKS Primary Care Provider [phone] Reason for Visit * Reason Comments Med Refill Encounter Details Date Type Department Care Team ([facility] st Contact Info) Description 06/02/2024 Refill [facility] MEDICINE 230 [place], [place] [phone] Name, MD Beau 230 [place] [address] Asthma, unspecified asthma severity, unspecified whether complicated, [...] 11:30 AM EST Clinical Support [facility] MEDICINE [address] [place] [address] 04/20/2025 1:00 PM EST Office Visit [facility] OPTOMETRY 267 [place] [address] Alvin, Florecita, OD 230 [place] [address] 04/26/2025 3:30 PM EST Office Visit [facility] MEDICINE [address] [place] [address] Beau Stewart MD [address] [place] [address] documented as of this encounter Visit Diagnoses Diagnosis Asthma, unspecified asthma severity, unspecified whether complicated, unspecified whether persistent documented in this encounter Additional Health Concerns Assessment Noted Time PHQ-9 Depression Total Score: 24 024 3:46 PM EST documented as of this encounter Care Teams Environmental Studies Professor Relationship Specialty Start Date End Date Beau Stewart MD [address] [place] [address] PCP - General Family Medicine 06/01/15 documented as of this encounter
--- OUTSIDE RECORDS SUMMARY | 2025-02-11 16:07 | XMS_ITS | Encounter Summary ---
Author Organization [employer] Address [address] [place] [address] 7t [place] [address] Care Team Providers Care International Marketing Manager Name Role Phone Name, Beau FRANKS Primary Care Provider [phone] Encounter Details Date Type Department Care Team (Late st Contact Info) Description 02/11/2025 Orders Only GENERIC EXTERNAL DATA DEPARTMENT Provider, [...] 11:30 AM EST Clinical Support [facility] MEDICINE 230 [place] [address] 04/20/2025 1:00 PM EST Office Visit [facility] OPTOMETRY [address] [place] [address] AlvinFlorecita holloway, OD 230 [place] [address] 04/26/2025 3:30 PM EST Office Visit [facility] MEDICINE 230 [place] [address] Name, MD Baeu 230 [place] [address] Pending Results Name Type Priority Associated Diagnoses Date /Time Comprehensive Metabolic Panel Lab Routine 02/11/2025 12:26 PM EST documented as of this encounter Goals Goal [...] Plan Weekly blood pressure task No She Jc, RN Weekly blood pressure task Care Plan Weekly blood pressure task No She Jc RN Patient has chronic kidney disease Care Plan Patient has chronic kidney disease No She Jc RN Patient has chronic kidney disease Care Plan Patient has chronic kidney disease No She Jc RN documented as of this encounter Procedures Procedure Name Priority Date/Time Associated Diagnosis Comments CBC WITH AUTO DIFFERENTIAL Routine 02/11/2025 12:26 PM EST COMPREHENSIVE METABOLIC PANEL Routine 02/11/2025 12:26 PM EST documented in this encounter Results * (ABNORMAL) CBC auto differential (02/11/2025 12:26 PM EST) White Blood Count 10.7 4.8 - 10.8 X10*3/uL [facility] Red Blood Count 3.98(L) 4.60 - 5.80 X10*6/uL [facility] Hemoglobin 12.1(L) 14.0 - 18.0 g/dl [facility] Hematocrit 36.0(L) 42.0 - 52.0 % [facility] Mean Corpuscular Volume 90.5 80.0 - 98.0 fL [facility] Mean Corpuscular Hemoglobin 30.4 27.0 - 33.0 pg [facility] Mean Corpuscular HGB Conc 33.6 31.0 - 36.0 g/dl [facility] Red Cell Distribution Width 15.9 11.0 - 16.0 % [facility] Platelet Count 316 160 - 400 X10*3/uL [facility] Mean Platelet Volume 8.9(L) 9.4 - 12.4 fL [facility] Neutrophils Percent Auto 71.4 45 - 73 % [facility] Imm Gran Pct Auto 0.3 0.0 - 0.4 % [facility] Lymphocytes Percent Auto 23.3 20 - 40 % [facility] Monocytes Percent Auto 4.8 2 - 11 % [facility] Eosinophils Percent Auto 0.0 0 - 4 % [facility] Basophils Percent Auto 0.2 0 - 2 % [facility] NRBC Pct Auto 0.0 0.0 - 0.2 /100WBC [facility] Neutrophils Absolute Auto 7.7 2.0 - 8.3 x10*3/uL [facility] Imm Gran Abs Auto 0.03 0.00 - 0.03 X10*3/uL [facility] Lymphocytes Absolute Auto 2.5 1.2 - 4.9 X10*3/uL [facility] Monocytes Absolute Auto 0.5 0.1 - 1.2 X10*3/uL [facility] Eosinophils Absolute Auto 0.0 0.0 - 0.4 X10*3/uL [facility] Basophils Absolute Auto 0.0 0.0 - 0.2 X10*3/uL [facility] NRBC Abs Auto 0.000 0.0 - 0.012 X10*3/uL [facility] 02/11/2025 12:2 6 PM EST 02/11/2025 12:26 PM EST us Generic External Data Provider LAB BLOOD ORDERAB LES Final Result Performing Organization Address City/State/[facility] Co de Phone Number [facility] [address] [place] [phone] documented in this encounter Visit Diagnoses [...] documented as of this encounter Care Teams International Marketing Manager Relationship Specialty Start Date End Date Name, MD Beau 230 [place] [address] PCP - General Family Medicine 06/01/15 documented as of this encounter
--- OUTSIDE RECORDS SUMMARY | 2025-02-11 16:07 | XMS_ITS | Encounter Summary ---
Author Organization [employer] Address [address] [place] [address] 7 [place] [address] Care Team Providers Care Paper Twister Name Role Phone Name, Beau FRANKS Primary Care Provider [phone] Reason for Visit * Reason Onset Date Comments Med Refill 12/11/2024 Encounter Details Date Type Department Care Team ([facility] st Contact Info) Description 12/11/2024 Telephone [facility] MEDICINE 230 [place], [place] [phone] Name, MD Beau 230 [place] [address] Med Refill Social History Tobacco Use Types [...] Base) MCG/ACT inhaler To be sent to: [id number] [place], [place] - [address] [place] [address] AT [facility] Requesting more refills on script documented in this encounter Plan of Treatment Upcoming Encounters Date Type Department Care Team (Late st Contact Info) Description 02/17/2025 11:30 AM EST Clinical Support [facility] MEDICINE 230 [place] [address] 04/20/2025 1:00 PM EST Office Visit [facility] OPTOMETRY [address] [place] [address] Florecita Esquivel, OD 230 [place] [address] 04/26/2025 3:30 PM EST Office Visit [facility] MEDICINE 230 [place] [address] Name, MD Beau 230 [place] [address] documented as of this encounter Visit Diagnoses Not on filedocumented in this encounter Additional Health Concerns Assessment Noted Time PHQ-9 Depression Total Score: 25 025 11:48 AM EDT documented as of this encounter Care Teams Paper Twister Relationship Specialty Start Date End Date Name, MD Beau 230 [place] [address] PCP - General Family Medicine 06/01/15 documented as of this encounter
--- OUTSIDE RECORDS SUMMARY | 2025-02-11 16:07 | XMS_ITS | Encounter Summary ---
Author Organization [employer] Address [address] [place] [address] 7 [place] [address] Care Team Providers Care Pilot Highway Patrol Name Role Phone Name, Beau FRANKS Primary Care Provider [phone] Reason for Visit * Reason Comments Med Refill Encounter Details Date Type Department Care Team ([facility] st Contact Info) Description 10/04/2023 Refill [facility] MEDICINE 230 [place], [place] [phone] Name, MD Beau 230 [place] [address] Social History Tobacco Use Types Packs/Day Years [...] Description 02/17/2025 11:30 AM EST Clinical Support [facility] MEDICINE 230 [place] [address] 04/20/2025 1:00 PM EST Office Visit [facility] OPTOMETRY 267 [place] [address] Alvin, Florecita, OD 230 [place] [address] 04/26/2025 3:30 PM EST Office Visit [facility] MEDICINE 230 [place] [address] NameBeau MD [address] [place] [address] documented as of this encounter Visit Diagnoses Not on filedocumented in this encounter Additional Health Concerns Assessment Noted Time PHQ-9 Depression Total Score: 19 023 3:46 PM EDT documented as of this encounter Care Teams Pilot Highway Patrol Relationship Specialty Start Date End Date Name, MD Beau [address] [place] [address] PCP - General Family Medicine 06/01/15 documented as of this encounter
--- OUTSIDE RECORDS SUMMARY | 2025-02-11 16:07 | XMS_ITS | Encounter Summary ---
Author Organization [employer] Address [address] [place] [address] 7 [place] [address] Care Team Providers Care Home Assessment Nurse Name Role Phone Name, Beau FRANKS Primary Care Provider [phone] Reason for Visit * Reason Comments Med Refill Encounter Details Date Type Department Care Team ([facility] st Contact Info) Description 10/18/2023 Refill [facility] MEDICINE 230 [place], [place] [phone] Chiquis Harris MD 230 [place] [address] Iron deficiency Social History Tobacco Use Types [...] 02/17/2025 11:30 AM EST Clinical Support [facility] MEDICINE [address] [place] [address] 04/20/2025 1:00 PM EST Office Visit [facility] OPTOMETRY 267 [place] [address] Alvin, Florecita, OD 230 [place] [address] 04/26/2025 3:30 PM EST Office Visit [facility] MEDICINE [address] [place] [address] NameBeau MD [address] [place] [address] documented as of this encounter Visit Diagnoses Diagnosis Iron deficiency Disorders of iron metabolism documented in this encounter Additional Health Concerns Assessment Noted Time PHQ-9 Depression Total Score: 19 023 3:46 PM EDT documented as of this encounter Care Teams Home Assessment Nurse Relationship Specialty Start Date End Date NameBeau MD [address] [place] [address] PCP - General Family Medicine 06/01/15 documented as of this encounter
--- OUTSIDE RECORDS SUMMARY | 2025-02-11 16:07 | XMS_ITS | Encounter Summary ---
Author Organization [employer] Address [address] [place] [address] 7 [place] [address] Care Team Providers Care Respiratory Supervisor Name Role Phone Name, Beau FRANKS Primary Care Provider [phone] Reason for Visit * Reason Onset Date Comments Med Refill 10/04/2023 Encounter Details Date Type Department Care Team (Late st Contact Info) Description 10/04/2023 Telephone [facility] 230 [place], [place] [phone] Name, MD Beau 230 [place] [address] Med Refill Social History Tobacco Use Types [...] MG EC tablet To be sent to: [id number] [place], [place] - [address] [facility] documented in this encounter Plan of Treatment Upcoming Encounters Date Type Department Care Team (Late st Contact Info) Description 02/17/2025 11:30 AM EST Clinical Support [facility] 230 [place] [address] 04/20/2025 1:00 PM EST Office Visit [facility] [address] [place] [address] Florecita Esquivel, OD 230 [place] [address] 04/26/2025 3:30 PM EST Office Visit [facility] 230 [place] [address] Name, MD Beau 230 [place] [address] documented as of this encounter Visit Diagnoses Not on filedocumented in this encounter Additional Health Concerns Assessment Noted Time PHQ-9 Depression Total Score: 19 023 3:46 PM EDT documented as of this encounter Care Teams Respiratory Supervisor Relationship Specialty Start Date End Date Name, MD Beau 230 [place] [address] PCP - General Family Medicine 06/01/15 documented as of this encounter
--- OUTSIDE RECORDS SUMMARY | 2025-02-11 16:07 | XMS_ITS | Encounter Summary ---
Author Organization [employer] Address [address] [place] [address] 7 [place] [address] Care Team Providers Care Passenger Representative Name Role Phone Name, Beau FRANKS Primary Care Provider [phone] Reason for Visit * Reason Comments Med Refill Encounter Details Date Type Department Care Team ([facility] st Contact Info) Description 09/19/2023 Refill [facility] MEDICINE 230 [place], [place] [phone] Name, MD Beau 230 [place], [place] [phone] Erectile dysfunction, unspecified erectile dysfunction type Social [...] Description 02/17/2025 11:30 AM EST Clinical Support [facility] MEDICINE [address] [place] [address] 04/20/2025 1:00 PM EST Office Visit [facility] OPTOMETRY [address] [place] [address] Alvin, Florecita, OD 230 [place] [address] 04/26/2025 3:30 PM EST Office Visit [facility] MEDICINE [address] [place] [address] NameBeau MD [address] [place] [address] documented as of this encounter Visit Diagnoses Diagnosis Erectile dysfunction, unspecified erectile dysfunction type documented in this encounter Additional Health Concerns Assessment Noted Time PHQ-9 Depression Total Score: 19 023 3:46 PM EDT documented as of this encounter Care Teams Passenger Representative Relationship Specialty Start Date End Date NameBeau MD [address] [place] [address] PCP - General Family Medicine 06/01/15 documented as of this encounter
--- OUTSIDE RECORDS SUMMARY | 2025-02-11 16:07 | XMS_ITS | Encounter Summary ---
Author Organization [employer] Address [address] [place] [address] 7 [place] [address] Care Team Providers Care Oil Furnace Installer Name Role Phone Name, Beau FRANKS Primary Care Provider [phone] Reason for Visit * Reason Comments Med Refill Encounter Details Date Type Department Care Team ([facility] st Contact Info) Description 02/11/2025 Refill [facility] MEDICINE 230 [place], [place] [phone] Name, MD Beau 230 [place] [address] Asthma, unspecified asthma severity, unspecified whether complicated, [...] Description 02/17/2025 11:30 AM EST Clinical Support [address] [address] 04/20/2025 1:00 PM EST Office Visit [facility] OPTOMETRY [address] [place] [address] Florecita Esquivel, OD 230 [place] [address] 04/26/2025 3:30 PM EST Office Visit [facility] MEDICINE [address] [place] [address] Name, MD Beau 230 [place] [address] documented as of this encounter Goals Goal [...] Plan Weekly blood pressure task No Colon Cole Farzaneh Patient has chronic [...] blood pressure task No She Jc RN Weekly blood pressure task Care Plan [...] Noted Time PHQ-9 Depression Total Score: 25 09/25/2 025 11:48 AM EDT documented as of this encounter Care Teams Oil Furnace Installer Relationship Specialty Start Date End Date Name, MD Beau 230 [place] [address] PCP - General Family Medicine 06/01/15 documented as of this encounter
--- OUTSIDE RECORDS SUMMARY | 2025-02-11 16:07 | XMS_ITS | Encounter Summary ---
Author Organization [employer] Address [address] [place] [address] 7t [place] [address] Care Team Providers Care Machine Ceramic Coater Name Role Phone Name, Beau FRANKS Primary Care Provider [phone] Bambi Jauregui Unavailable Mechelle Dumont RN Unavailable Unavailable Encounter Details Date Type Department Care Team (Late st Contact Info) Description 02/28/2022 Orders Only [facility] [address] [place], [place] [phone] Kindra Woodall LPN Social History Tobacco Use [...] Description 02/17/2025 11:30 AM EST Clinical Support [facility] MEDICINE [address] [place] [address] [phone] 04/20/2025 1:00 PM EST Office Visit [facility] OPTOMETRY 267 [place], [place] [phone] Florecita Esquivel OD 230 [place], [place] [phone] 04/26/2025 3:30 PM EST Office Visit [facility] MEDICINE 230 [place], [place] [phone] Name, MD Beau 230 [place] [address] documented as of this encounter Visit Diagnoses Not on filedocumented in this encounter Care Teams Machine Ceramic Coater Relationship Specialty Start Date End Date Name, MD Beau [address] [place] [address] PCP - General Family Medicine 06/01/15 Bambi Jauregui Community Health Worker 06/27/2309/14 Mechelle Dumont, ISABEL Lead Front Desk Agent 06/27/23 09/15/23 documented as of this encounter
--- OUTSIDE RECORDS SUMMARY | 2025-02-11 16:07 | XMS_ITS | Encounter Summary ---
Author Organization [employer] Address [address] [place] [address] 7 [place] [address] Care Team Providers Care Deputy Sheriff/Investigator Name Role Phone Name, Beau FRANKS Primary Care Provider [phone] Bambi Jauregui Unavailable Mechelle Dumont RN Unavailable Unavailable Reason for Visit * Reason Comments Med Refill Encounter Details Date Type Department Care Team ([facility] st Contact Info) Description 06/10/2023 Refill [facility] MEDICINE [address] [place] [address] Name, MD Beau [address] [place] [address] Asthma, unspecified asthma severity, unspecified whether complicated, [...] AM EST Clinical Support [facility] MEDICINE [address] [place] [address] 04/20/2025 1:00 PM EST Office Visit [facility] OPTOMETRY [address] [place] [address] Alvin, Florecita, OD [address] [place] [address] 04/26/2025 3:30 PM EST Office Visit [facility] MEDICINE [address] [place] [address] NameBeau MD [address] [place] [address] documented as of this encounter Visit Diagnoses Diagnosis Asthma, unspecified asthma severity, unspecified whether complicated, unspecified whether persistent documented in this encounter Additional Health Concerns Assessment Noted Time PHQ-9 Depression Total Score: 19 023 3:46 PM EDT documented as of this encounter Care Teams Deputy Sheriff/Investigator Relationship Specialty Start Date End Date Beau Stewart MD [address] [place] [address] PCP - General Family Medicine 06/01/15 Bambi Jauregui Community Health Worker 06/27/2309/14 Mechelle Dumont RN Plant Biology Professor 06/27/23 09/15/23 documented as of this encounter
--- OUTSIDE RECORDS SUMMARY | 2025-02-11 16:07 | XMS_ITS | Encounter Summary ---
Author Organization [email or web address] Address [address] [place] [address] 7 [place] [address] Care Team Providers Care Adjuster Name Role Phone Name, Beau FRANKS Primary Care Provider Reason for Visit * Reason Comments Med Refill Encounter Details Date Type Department Care Team ([facility] st Contact Info) Description 11/25/2024 Refill [facility] MEDICINE [address] [place], [place] [phone] Name, MD Beau [address] [place] [address] Asthma, unspecified asthma severity, unspecified whether complicated, [...] Description 02/17/2025 11:30 AM EST Clinical Support [facility] MEDICINE [address] [place] [address] 04/20/2025 1:00 PM EST Office Visit [facility] OPTOMETRY [address] [place] [address] Alvin, Florecita, OD [address] [place] [address] 04/26/2025 3:30 PM EST Office Visit [facility] MEDICINE [address] [place] [address] Beau Stewart MD [address] [place] [address] documented as of this encounter Visit Diagnoses Diagnosis Asthma, unspecified asthma severity, unspecified whether complicated, unspecified whether persistent documented in this encounter Additional Health Concerns Assessment Noted Time PHQ-9 Depression Total Score: 25 025 11:48 AM EDT documented as of this encounter Care Teams Adjuster Relationship Specialty Start Date End Date Beau Stewart MD [address] [place] [address] PCP - General Family Medicine 06/01/15 documented as of this encounter
--- OUTSIDE RECORDS SUMMARY | 2025-02-11 16:07 | XMS_ITS | Encounter Summary ---
Author Organization [employer] Address [address] [place] [address] 7 [place] [address] Care Team Providers Care Patient Services Assistant Name Role Phone Name, Beau FRANKS Primary Care Provider [phone] Bambi Jauregui Unavailable Mechelle Dumont RN Unavailable Unavailable Reason for Visit * Reason Comments Med Refill Encounter Details Date Type Department Care Team ([facility] st Contact Info) Description 06/13/2023 Refill [facility] MEDICINE [address] [place] [address] Name, MD Beau [address] [place] [address] Asthma, unspecified asthma severity, unspecified whether complicated, [...] Description 02/17/2025 11:30 AM EST Clinical Support [facility] MEDICINE [address] [place] [address] 04/20/2025 1:00 PM EST Office Visit [facility] OPTOMETRY [address] [place] [address] Alvin, Florecita, OD [address] [place] [address] 04/26/2025 3:30 PM EST Office Visit [facility] MEDICINE [address] [place] [address] NameBeau MD [address] [place] [address] documented as of this encounter Visit Diagnoses Diagnosis Asthma, unspecified asthma severity, unspecified whether complicated, unspecified whether persistent documented in this encounter Additional Health Concerns Assessment Noted Time PHQ-9 Depression Total Score: 19 023 3:46 PM EDT documented as of this encounter Care Teams Patient Services Assistant Relationship Specialty Start Date End Date Beau Stewart MD [address] [place] [address] PCP - General Family Medicine 06/01/15 Bambi Jauregui Community Health Worker 06/27/2309/14 Mechelle Dumont RN Meat Scrubber 06/27/23 09/15/23 documented as of this encounter
--- OUTSIDE RECORDS SUMMARY | 2025-02-11 16:08 | XMS_ITS | Encounter Summary ---
Author Organization [employer] Address [address] [place] [address] 7 [place] [address] Care Team Providers Care Residue Furnace Operator Name Role Phone Name, Beau FRANKS Primary Care Provider [phone] Bambi Jauregui Unavailable Mechelle Dumont RN Unavailable Unavailable Reason for Visit * Reason Onset Date Comments PT1 11/14/2022 Encounter Details Date Type Department Care Team ([facility] st Contact Info) Description 11/14/2022 Telephone [facility] MEDICINE [address] [place] [address] Name, MD Beau [address] [place] [address] PT1 Social History Tobacco Use Types Packs/Day [...] 10:01 AM EDT Allergy PT-1 Request Number [id number] is Pending Dr Salazar PT-1 Request Number [id number] is Pending Ortho PT-1 Request Number [id number] is Pending Pt has an active PT1 for [facility] * Telephone Encounter - Melva Terrence - 11/14/2022 3:57 PM EDT PT1 Address verified Date: 11/20/22 Time: 2 pm Visits: Address: [address] [place] [address] Facility: Allergy Injection Wheel Chair: n/a Unix Administrator Needed: no PT1 Date: 12/05/22 Time: 11:30 am Visits: Address: [address] [place] Facility: Orthopedic Wheel Chair: n/a Unix Administrator Needed: no PT1 Date: 12/07/22 Time: 11:15 am Visits: Address: [address] [place], [place] Facility: PCP Wheel Chair: n/a Unix Administrator Needed: no PT1 Date: 12/07/22 Time: 2:30 pm Visits: Address: [address] [place] Facility: Dr. Salazar Wheel Chair: n/a Unix Administrator Needed: no documented in this encounter Plan of Treatment Upcoming Encounters Date Type Department Care Team (Late st Contact Info) Description 02/17/2025 11:30 AM EST Clinical Support [facility] MEDICINE [address] [place] [address] 04/20/2025 1:00 PM EST Office Visit [facility] OPTOMETRY [address] [place] [address] Florecita Esquivel, OD [address] [place] [address] 04/26/2025 3:30 PM EST Office Visit [facility] MEDICINE [address] [place] [address] Name, MD Beau [address] [place] [address] documented as of this encounter Visit Diagnoses Not on filedocumented in this encounter Care Teams Residue Furnace Operator Relationship Specialty Start Date End Date Name, MD Beau [address] [place] [address] PCP - General Family Medicine 06/01/15 Bambi Jauregui Community Health Worker 06/27/2309/14 Mechelle Dumont, ISABEL Poly Operator 06/27/23 09/15/23 documented as of this encounter
--- OUTSIDE RECORDS SUMMARY | 2025-02-11 16:08 | XMS_ITS | Encounter Summary ---
Author Organization [employer] Address [address] [place] [address] 7[address] [place] [address] Care Team Providers Care Knitter Wire Mesh Name Role Phone Name, Beau FRANKS Primary Care Provider [phone] Bambi Jauregui Unavailable Mechelle Dumont RN Unavailable Unavailable Reason for Visit * Reason Comments Med Refill Encounter Details Date Type Department Care Team ([facility] st Contact Info) Description 01/31/2023 Refill [facility] [address] [place], [place] [phone] Name, MD Beau [address] [place] [address] Asthma, unspecified asthma severity, unspecified whether complicated, [...] Description 02/17/2025 11:30 AM EST Clinical Support [facility] MEDICINE [address] [place] [address] 04/20/2025 1:00 PM EST Office Visit [facility] OPTOMETRY [address] [place] [address] Alvin, Florecita, OD [address] [place] [address] 04/26/2025 3:30 PM EST Office Visit [address] [address] Name, MD Beau [address] [place] [address] documented as of this encounter Visit Diagnoses Diagnosis Asthma, unspecified asthma severity, unspecified whether complicated, unspecified whether persistent documented in this encounter Additional Health Concerns Assessment Noted Time PHQ-9 Depression Total Score: 19 023 3:46 PM EDT documented as of this encounter Care Teams Knitter Wire Mesh Relationship Specialty Start Date End Date Beau Stewart MD [address] [place] [address] PCP - General Family Medicine 06/01/15 Bambi Jauregui Community Health Worker 06/27/2309/14 Mechelle Dumont, ISABEL Attractions Associate 06/27/23 09/15/23 documented as of this encounter
--- OUTSIDE RECORDS SUMMARY | 2025-02-11 16:08 | XMS_ITS | Encounter Summary ---
Author Organization [employer] Address [address] [place] [address] 7 [place] [address] Care Team Providers Care Skein Bander Name Role Phone Name, Beau FRANKS Primary Care Provider [phone] Reason for Visit * Reason Comments Med Refill Encounter Details Date Type Department Care Team ([facility] st Contact Info) Description 01/12/[address] [facility] MEDICINE [address] [place], [place] [phone] Name, MD Beau [address] [place] [address] Asthma, unspecified asthma severity, unspecified whether complicated, [...] 02/17/2025 11:30 AM EST Clinical Support [facility] MEDICINE [address] [place] [address] 04/20/2025 1:00 PM EST Office Visit [facility] OPTOMETRY [address] [place] [address] Alvin, Florecita, OD [address] [place] [address] 04/26/2025 3:30 PM EST Office Visit [facility] MEDICINE [address] [place] [address] Beau Stewart MD [address] [place] [address] documented as of this encounter Visit Diagnoses Diagnosis Asthma, unspecified asthma severity, unspecified whether complicated, unspecified whether persistent documented in this encounter Additional Health Concerns Assessment Noted Time PHQ-9 Depression Total Score: 25 025 11:48 AM EDT documented as of this encounter Care Teams Skein Bander Relationship Specialty Start Date End Date Beau Stewart MD [address] [place] [address] PCP - General Family Medicine 06/01/15 documented as of this encounter
--- OUTSIDE RECORDS SUMMARY | 2025-02-11 16:08 | XMS_ITS | Clinical Summary ---
Author Organization [facility] [employer] Address [address] [place] [address] 7[address] [place] [address] Care Team Providers Care Hydrocrane Operator Name Role Phone Name, Beau FRANKS Primary Care Provider [phone] Allergies Active Allergy Reactions Criticality Noted Date [...] WEEK 120 mL 2 01/07/20 25 Active spironolactone (Aldactone) 25 MG tablet TAKE 1 TABLET(25 MG) BY MOUTH DAILY 90 tablet 1 01/20/20 25 Active sodium chloride ([place] Nasal [place]) 0.65 % nasal spray Administer 1 spray [...] nebules 180 mL 02/11/20 25 2025 Active Ventolin HFA 108 (90 Base) MCG/ACT inhalerIndicat ions:Asthma, unspecified asthma severity, unspecified whether complicated, unspecified whether persistent INHALE 2 PUFFS BY MOUTH EVERY 4 TO 6 HOURS NEEDED 18 g 1 02/12/20 25 Active spironolactone (Aldactone) 25 MG tablet Take [...] HOURS NEEDED 18 g 1 01/20/20 25 2024 Discontinued(R eorder (will not trigger [...] avoid culprits, PPI Acute hypoxemic respiratory failure ([facility]/HCC) Lumbar radiculopathy, chronic 11/19/2024 Cirrhosis ([facility]) 11/19/2024 Overview (11/19/2024): Abstain from alcohol- [...] it until Saturday when he will see skiver hand, as much as possible, I gave him [...] dx Stage 3a chronic kidney disease (CKD) ([facility]) 11/06/2022 Periodontal disease 07/03/2022 Dental caries [...] Encounters Date Type Department Care Team Description 02/11/2025 Orders Only GENERIC EXTERNAL DATA DEPARTMENT Provider, Generic External Data 02/11/2025 Refill [facility] [address] [place] [address] [phone] She Jc, ISABEL Asthma, unspecified asthma severity, unspecified whether complicated, unspecified whether persistent 02/11/2025 Refill [facility] [address] [place] [address] [phone] Beau Stewart MD Asthma, unspecified asthma severity, unspecified whether complicated, unspecified whether persistent 02/10/2025 11:00 AM EST Office Visit [facility] [address] [place] [address] [phone] Sarina Donato FNP SOB (shortness of breath) (Primary Dx); Sore throat (viral); Productive cough 02/10/2025 Travel 02/09/2025 Telephone [facility] [address] [place] [address] [phone] Beau Stewart MD Chart Prep 02/08/2025 Telephone [facility] [address] [place] [address] [phone] Beau Stewart MD Nurse Triage 02/05/2025 Telephone [facility] [address] [place] [address] [phone] Erlinda Swain MA dec recalls 01/27/2025 Telephone [facility] [address] [place] [address] [phone] Beau Stewart MD Durable Medical Equipment 01/19/2025 Refill [facility] [address] [place] [address] [phone] Beau Stewart MD 01/14/2025 Refill [facility] [address] [place] [address] [phone] Beau Stewart MD Asthma, unspecified asthma severity, unspecified whether complicated, unspecified whether persistent 01/12/2025 Refill [facility] [address] [place] [address] [phone] Beau Stewart MD Asthma, unspecified asthma severity, unspecified whether complicated, unspecified whether persistent 01/11/2025 Orders Only GENERIC EXTERNAL DATA DEPARTMENT Provider, Generic External Data 01/05/2025 Refill [facility]BILE [facility]ACCINE CLINIC [address] [place] [address] [phone] Beau Stewart MD Asthma, unspecified asthma severity, unspecified whether complicated, unspecified whether persistent; Seborrheic dermatitis 12/12/2024 Refill [facility] [address] [place] [address] [phone] Beau Stewart MD Asthma, unspecified asthma severity, unspecified whether complicated, unspecified whether persistent 12/11/2024 Telephone [facility] [address] [place] [address] [phone] Beau Stewart MD Med Refill 12/08/2024 Refill [facility] [address] [place] [address] [phone] Beau Stewart MD Asthma, unspecified asthma severity, unspecified whether complicated, unspecified whether persistent 11/25/2024 Refill [facility] [address] [place] [address] [phone] Beau Stewart MD Asthma, unspecified asthma severity, unspecified whether complicated, unspecified whether persistent 11/19/2024 11:30 AM EDT Office Visit [facility] [address] [place] [address] [phone] Beau Stewart MD Heart failure with preserved ejection fraction, unspecified HF chronicity ([facility]) (Primary Dx); Type 2 diabetes mellitus with other specified complication, with long-term current use of insulin ([facility]); Anemia, unspecified type; Depression, unspecified depression type 11/19/2024 Orders Only GENERIC EXTERNAL DATA DEPARTMENT Provider, Generic External Data 11/19/2024 Travel 11/18/2024 Telephone [facility] [address] [place] [address] [phone] Beau Stewart MD CHARTPREP 11/18/2024 Telephone [facility] [address] [place] [address] [phone] Beau Stewart MD Durable Medical Equipment from [...] 11:30 AM EST Clinical Support [facility] [address] [place] [address] [phone] 04/20/2025 1:00 PM EST Office Visit [facility] OPTOMETRY [address] [place] [address] Alvin, Florecita, OD [address] [place] [address] 04/26/2025 3:30 PM EST Office Visit [facility] [address] [place] [address] [phone] Name, MD Beau [address] [place] [address] Health Maintenance Due Date Last Done Comments [...] 03/05/2024, 0 10/2024, 03/05/2024, Additional history exists Diabetes: Foot [...] 02/10/2025 Dental X-Ray: Full Mouth 09/27/2026 09/27/2023, 05/0 10/2022 Colonoscopy 06/09/2030 06/09/2020 Colorectal Cancer Screening 06/09/2030 DTaP/Tdap/Td Vaccines (3 - Td or Tdap) 07/04/2031 07/03/2021, 01/02/2016, 09/23/1996 Hepatitis A Vaccines Completed 06/17/2012, 11/23/19 Hepatitis [...] this topic Meningococcal Vaccine Aged Out No ilnwood ralph eligible based on patient's age to [...] Patient has chronic kidney disease No Colon Farzaneh Cole Patient has chronic kidney disease Care Plan Patient has chronic kidney disease No Colon Farzaneh Cole Weekly blood pressure [...] chronic kidney disease No She Jc RN Procedures Procedure Name Priority Date/Time Associated Diagnosis Comments CBC WITH AUTO DIFFERENTIAL Routine 02/11/2025 12:26 PM EST COMPREHENSIVE METABOLIC PANEL Routine 02/11/2025 12:26 PM EST XR CHEST 2 VIEWS Routine 02/10/2025 4:30 [...] Relevant to Health Maintenance Results * (ABNORMAL) CBC auto differential (02/11/2025 12:26 PM EST) White Blood Count 10.7 4.8 - 10.8 X10*3/uL [facility] Red Blood Count 3.98(L) 4.60 - 5.80 X10*6/uL [facility] Hemoglobin 12.1(L) 14.0 - 18.0 g/dl [facility] Hematocrit 36.0(L) 42.0 - 52.0 % [facility] Mean Corpuscular Volume 90.5 80.0 - 98.0 fL [facility] Mean Corpuscular Hemoglobin 30.4 27.0 - 33.0 pg [facility] Mean Corpuscular HGB Conc 33.6 31.0 - 36.0 g/dl [facility] Red Cell Distribution Width 15.9 11.0 - 16.0 % [facility] Platelet Count 316 160 - 400 X10*3/uL [facility] Mean Platelet Volume 8.9(L) 9.4 - 12.4 fL [facility] Neutrophils Percent Auto 71.4 45 - 73 % [facility] Imm Gran Pct Auto 0.3 0.0 - 0.4 % [facility] Lymphocytes Percent Auto 23.3 20 - 40 % [facility] Monocytes Percent Auto 4.8 2 - 11 % [facility] Eosinophils Percent Auto 0.0 0 - 4 % [facility] Basophils Percent Auto 0.2 0 - 2 % [facility] NRBC Pct Auto 0.0 0.0 - 0.2 /100WBC [facility] Neutrophils Absolute Auto 7.7 2.0 - 8.3 x10*3/uL [facility] Imm Gran Abs Auto 0.03 0.00 - 0.03 X10*3/uL [facility] Lymphocytes Absolute Auto 2.5 1.2 - 4.9 X10*3/uL [facility] Monocytes Absolute Auto 0.5 0.1 - 1.2 X10*3/uL [facility] Eosinophils Absolute Auto 0.0 0.0 - 0.4 X10*3/uL [facility] Basophils Absolute Auto 0.0 0.0 - 0.2 X10*3/uL [facility] NRBC Abs Auto 0.000 0.0 - 0.012 X10*3/uL [facility] 02/11/2025 12:2 6 PM EST 02/11/2025 12:26 PM EST us Generic External Data Provider LAB BLOOD ORDERAB LES Final Result Performing Organization Address City/State/[facility] Co de Phone Number [facility] [address] [place] [address] [phone] * XR Chest 2 Views (02/10/2025 4:30 PM EST) Anatomical Region Laterality Modality Chest Radiographic Mira ging 02/10/2025 4:30 PM EST Narrative 02/10/2025 4:45 PM EST [address] [address] XRay Report Signed Patient: Manjit May MR#: [id number] 58 : 1970 Acct:[id number] Age/Sex: 55 / M ADM Date: 02/10/25 Loc: HO.HHCX Attending Dr: Sarina GREEN Ordering Physician: Sarina Donato Date of Service: 02/10/25 Procedure(s): XR chest 2V Accession Number(s): [id number] cc: Name,Beau FRANKS; Sarina Donato Reason for [...] 02/10/25 1643 DD/ 1630 TD/TT: 02/10/25 1631 Vp Production: NICOLAS Procedure Note Donotuseinterpreter, Image - 02/10/2025 [facility] [address] [place] [address] XRay Report Signed Patient: Manjit May AMR#: [id number] 58 : 1970Acct:[id number] Age/Sex: 55 / MADM Date: 02/10/25 Loc: .HHCX Attending Dr: Sarina GREEN Ordering Physician: Sarina Donato Date of Service: 02/10/25 Procedure(s): XR chest 2V Accession Number(s): [id number] cc: Name,Beau FRANKS; Sarina Donato Reason for [...] 02/10/25 1643 DD/ 1630 TD/TT: 02/10/25 1631 Vp Production: NICOLAS us Sarina GREEN IMG XR PROCEDURES Final Result * POCT Rapid Influenza B LUDWIG ID NOW (02/10/2025 11:01 AM EST) Influenza B Negative Negative, Indeterminate [facility] QC Media Lot # [id number] [facility] Lot# Expiration Date [id number] [facility] Swab 02/10/2025 11:0 1 AM EST us Sarina Nickhipo ENVIRONMENTAL CONSULTANT POINT OF CARE TEST ENTER/EDIT ORDERABLES Final Result Performing Organization Address [facility] Co de Phone Number [facility] [address] [place] [address] [phone] * POCT Rapid Influenza A LUDWIG ID NOW (02/10/2025 11:00 AM EST) Pathologist [facility] [place] Influenza A Negative Negative, Indeterminate [facility] QC Media Lot # [id number] [facility] Lot# Expiration Date [facility] Swab 02/10/2025 11:0 0 AM EST Sarina Okhipo ENVIRONMENTAL CONSULTANT POINT OF CARE TEST ENTER/EDIT ORDERABLES Final Result Performing Organization Address [facility] de Phone Number [facility] [address] [place] [address] [phone] * POCT Rapid Covid-19 BinaxNOW (02/10/2025 10:59 AM EST) [facility] Rapid COVID Ag Negative QC Media Lot # [id number] Lot# Expiration Date Swab 02/10/2025 10:5 9 AM EST us Sarina Okhipo ENVIRONMENTAL CONSULTANT POINT OF CARE TEST ENTER/EDIT ORDERABLES Final Result * POCT Rapid Strep A LUDWIG ID NOW (02/10/2025 10:54 AM EST) [facility] Rapid Strep A Screen Negative Negative, None Detected QC Media Lot # [id number] Lot# Expiration Date Swab 02/10/2025 10:5 4 AM EST us Sarina Okhipo ENVIRONMENTAL CONSULTANT POINT OF CARE TEST ENTER/EDIT ORDERABLES Edited Result - Final * PSA,Total (01/11/2025 3:30 PM EST) Prostate Specific Antigen 0.32 <0.05 - 4.0 ng/mL [facility] Comment:PSA methodology: Hill Franco i ChemiluminescentMicroparticle Immunoassay (CMIA) 01/11/2025 3:30 PM EST 01/11/2025 3:30 PM EST Generic External Data Provider LAB BLOOD ORDERAB LES Final Result Performing Organization Address [facility]/ZIP Co de Phone Number [facility] [address] [place] [address] [phone] * (ABNORMAL) Glucose, Whole Blood (11/19/2024 2:14 PM EDT) Glucose, Whole Blood 267(H) 60 - 115 mg/dL [facility] Comment:METER #: [id number] Testing performed in the Endocrinology Department [address] , [address], [facility]. 11/19/2024 2:14 PM EDT 11/19/2024 2:20 PM EDT Generic External Data Provider LAB BLOOD ORDERAB LES Final Result Performing Organization Address City/[facility]/ZIP Co de Phone Number [facility] [address] [place] [address] [phone] * (ABNORMAL) POCT Hgb A1c (11/19/2024 11:42 AM EDT) Hemoglobin A1C 6.7(A) 4.0 - 5.7 % QC Media Lot # [id number] Lot# Expiration Date 850 Blood 11/19/2024 11:4 2 AM EDT Beaumarybeth Stewart MD POINT OF CARE TEST ENTER/EDIT [...] 1:50 PM EDT) Creatinine, Urine 37.57 mg/dL [facility] Protein, Total, Random Urine <7 <12 mg/dL [facility] Protein/Creatin ine Ratio, Ur TNP <0.2 [facility] Comment:Unable to calculate urine protein creatinine ratio due tolow creatinine or protein result. 10/14/2024 1:50 PM EDT 10/14/2024 2:23 PM EDT us Generic External Data Provider LAB URINE ORDERAB LES Final Result [facility] [address] [place] [address] [phone] * (ABNORMAL) Lipid Panel, Standard (07/07/2024 3:17 PM EDT) Triglycerides 195(H) <150 mg/dL [facility] Comment:Desirable Triglyceri de: less than 150 mg/dLBorderline High Triglyceride 150-199 mg/dLHigh Triglyceride: 200-499 mg/dLVery High Triglyceride: greater than or equal to 5OO mg/dL Cholesterol 128 <200 mg/dL [facility] Comment:Desirable Cholestero l: less than 200 mg/dLBorderline High Cholesterol: 200-239 mg/dLHigh Cholesterol: greater than 239 mg/dL LDL Cholesterol Calculated 53 <100 mg/dL [facility] Comment:Desirable LDL: less than 100 mg/dLNear Optimal/Above Optimal LDL: 110- 129 mg/dLBorderline High LDL: 130-159 mg/dLHigh LDL: 160-189 mg/dLVery High LDL: greater than or equal to 190 mg/dL HDL Cholesterol 36(L) >40 mg/dL [facility] Comment:Desirable HDL: great er than 40 mg/dL Note: This HDL assay may give artificially low results in patients with liver disease. 07/07/2024 3:17 PM EDT 07/07/2024 3:17 PM EDT us Generic External Data Provider LAB BLOOD ORDERAB LES Final Result Performing Organization Address [facility] Co de Phone Number [facility] [address] [place] [address] [phone] * Hepatitis C Antibody with Reflex to HCV, RNA, Quantitative, Real-Time PCR (11/06/2023 3:26 PM EDT) Hepatitis C Antibody Nonreactive Nonreactive [facility] Comment:Antibodies to HCV no t detected; does not exclude early acuteHCV infection. Blood Venous blood specimen / Unknown 11/06/2023 3:26 PM EDT 11/06/2023 3:58 PM EDT Beau Stewart MD LAB BLOOD ORDERABLES Final Resul t Performing Organization Address [facility] Co de Phone Number [facility] [address] [place] [address] [phone] * Colonoscopy (06/09/2020 2:16 PM EDT) Colonoscopy Normal Normal Narrative Radha Aviles - 06/09/2020 2:16 PM EDT Recommended 10 year follow up ([facility]) Historical Provider HEALTH MAINTENANCE Final Result from [...] 02/11/2025 Patient has chronic kidney disease 02/11/2025 Insurance [facility] C3 DENTAL-[facility] [employer] STAND ADULT Care Teams Hydrocrane Operator Relationship Specialty Start Date End Date Name, MD Beau [address] [place] [phone] PCP - General Family Medicine 06/01/15
--- OUTSIDE RECORDS SUMMARY | 2025-02-11 16:08 | XMS_ITS | Encounter Summary ---
Author Organization [employer] Address [address] [place] [address] [address] [place] [address] Care Team Providers Care Jewelry Sales Representative Name Role Phone Name, Beau FRANKS Primary Care Provider [phone] Bambi Jauregui Unavailable Mechelle Dumont RN Unavailable Unavailable Reason for Visit * Reason Comments Med Refill Encounter Details Date Type Department Care Team ([facility] st Contact Info) Description 02/21/2023 Refill [facility] [address] [place] [address] Name, MD Beau [address] [place] [address] Chronic pain syndrome Social History Tobacco Use [...] 11:30 AM EST Clinical Support [facility] [address] [place] [phone] 04/20/2025 1:00 PM EST Office Visit [facility] OPTOMETRY [address] [place] [address] Alvin, Florecita, OD [address] [place] [address] 04/26/2025 3:30 PM EST Office Visit [facility] [address] [place] [phone] Name, MD Beau [address] [place] [phone] documented as of this encounter Visit Diagnoses Diagnosis Chronic pain syndrome documented in this encounter Additional Health Concerns Assessment Noted Time PHQ-9 Depression Total Score: 19 023 3:46 PM EDT documented as of this encounter Care Teams Jewelry Sales Representative Relationship Specialty Start Date End Date NameBeau MD [address] [place] [phone] PCP - General Family Medicine 06/01/15 Bambi Jauregui Community Health Worker 06/27/2309/14 Mechelle Dumont RN Computer Compositor 06/27/23 09/15/23 documented as of this encounter
== END 2025-02-11 12:13 | disposition home or self-care (01) ==
LOC: HO.LAB 12:12
PROVIDERS: Absent Provider Internal Medicine Medical Oncology; PCP Internal Medicine Geriatric Medicine; Visit Provider Internal Medicine Gastroenterology
DX: D50.9 Iron deficiency anemia, unspecified (principal)
CPT/HCPCS: 36415; 80053; 82728; 85025

== ENCOUNTER 2025-02-17 13:01 | Outpatient (REF) | payer MEDICAID, SELFPAY ==
--- NOTE | ~2025-02-17 | XR_ITS ---
EXAMINATION: XR CHEST 2 VIEWS HISTORY: persistent productive cough, had CXR 1 week ago. H/o CHF. COMPARISON: Comparison is made with the prior examination dated 02/10/2025. FINDINGS: PA and lateral views of the chest are submitted. The lungs are expanded and clear. There is no pleural effusion, pneumothorax, or pulmonary vascular congestion. The heart is normal in size. There is degenerative disc disease of the spine. XR/XR chest 2V IMPRESSION: No acute cardiopulmonary abnormality. Electronically signed by: Balta Dubois MD 02/17/2025 01:19 PM [facility]
--- OUTSIDE RECORDS SUMMARY | 2025-02-17 11:40 | XMS_ITS | Encounter Summary ---
Author Organization [employer] Address [address] [place] [address] 7t [place] [address] Care Team Providers Care Meat Pickler Name Role Phone Name, Beau FRANKS Primary Care Provider [phone] Reason for Visit * Reason Comments Cough Shortness of Breath Encounter Details Date Type Department Care Team ([facility] st Contact Info) Description 02/17/2025 11:40 AM EST Office Visit [facility] [address] [place] [address] Cough in adult patient (Primary Dx); Hypoxia; Essential hypertension Social History Tobacco Use Types Packs/Day Years [...] Sign Reading Time Taken Comments Blood Pressure 150/88 02/17/2025 12:12 PM EST Pulse 115 02/17/2025 12:12 PM EST Temperature 36.8 C (98.2 F) 02/17/2025 12:12 PM EST Respiratory Rate 20 02/17/2025 12:12 PM EST Oxygen Saturation 93% 02/17/2025 12:12 PM EST Inhaled Oxygen Concentration - - Weight 135 kg (297 lb) 02/17/2025 12:12 PM EST Height - - Body Mass Index 47.94 02/10/2025 10:47 AM EST documented in this encounter Plan of Treatment Upcoming Encounters Date Type Department Care Team (Late st Contact Info) Description 04/20/2025 1:00 PM EST Office Visit [facility] [address] [place] [address] Alvin, Florecita, OD [address] [place] [address] 04/26/2025 3:30 PM EST Office Visit [facility] [address] [place] [address] Name, MD Beau [address] [place] [address] Scheduled Orders Name Type Priority Associated Diagnoses Orde r Schedule XR Chest 2 Views Imaging Routine Cough in adult patient Hypoxia Expected: 02/17/2025, Expires: 02/17/2026 documented as of this encounter Goals Goal [...] chronic kidney disease No She Jc RN Weekly blood pressure task Care Plan Weekly blood pressure task No Dina Triana RN Weekly blood pressure task Care Plan Weekly blood pressure task No Dina Triana RN Patient has chronic kidney disease Care Plan Patient has chronic kidney disease No Dina Triana RN Patient has chronic kidney disease Care Plan Patient has chronic kidney disease No Dina Triana RN Weekly blood pressure task Care Plan Weekly blood pressure task No Lesly Nice RN Weekly blood pressure task Care Plan Weekly blood pressure task No Lesly Nice RN Patient has chronic kidney disease Care Plan Patient has chronic kidney disease No Lesly Nice RN Patient has chronic kidney disease Care Plan Patient has chronic kidney disease No Lesly Nice RN Weekly blood pressure task Care Plan Weekly blood pressure task No Dina Triana RN Weekly blood pressure task Care Plan Weekly blood pressure task No Dina Triana, ISABEL Patient has chronic kidney disease Care Plan Patient has chronic kidney disease No Dina Triana, ISABEL Patient has chronic kidney disease Care Plan Patient has chronic kidney disease No Dina Triana, RN Weekly blood pressure task Care Plan Weekly blood pressure task No Dina Triana, RN Weekly blood pressure task Care Plan Weekly blood pressure task No Dina Triana, RN Patient has chronic kidney disease Care Plan Patient has chronic kidney disease No Dina Triana, RN Patient has chronic kidney disease Care Plan Patient has chronic kidney disease No Dina Triana RN documented as of this encounter Procedures Procedure Name Priority Date/Time Associated Diagnosis Comments POCT INFLUENZA B (ID NOW RAPID MOLECULAR) Routine 02/17/2025 12:14 PM EST Cough in adult patient POCT INFLUENZA A (ID NOW RAPID MOLECULAR) Routine 02/17/2025 12:14 PM EST Cough in adult patient POCT RAPID COVID ANTIGEN Routine 02/17/2025 12:13 PM EST Cough in adult patient documented in this encounter Results * Influenza A (ID NOW Rapid Molecular) (02/17/2025 12:14 PM EST) Influenza A Negative Negative, Indeterminate [facility] Swab 02/17/2025 12:1 4 PM EST us Isaiah Ballard MD POINT OF CARE TEST ENTER/EDIT OR DERABLES Final Result Performing Organization Address [facility]/ZIP Co de Phone Number [facility] [address] [place] [phone] * Influenza B (ID NOW Rapid Molecular) (02/17/2025 12:14 PM EST) Influenza B Negative Negative, Indeterminate [facility] Swab 02/17/2025 12:1 4 PM EST us Isaiah Ballard MD POINT OF CARE TEST ENTER/EDIT OR DERABLES Final Result Performing Organization Address [facility]/ZIP Co de Phone Number [facility] [address] [place] [phone] * POCT Rapid COVID Ag (02/17/2025 12:13 PM EST) Rapid COVID Ag Negative Swab 02/17/2025 12:1 3 PM EST Isaiah Ballard MD POINT OF CARE TEST ENTER/EDIT OR DERABLES Final Result documented in this encounter Visit Diagnoses Diagnosis Cough in adult patient- Primary Hypoxia Hypoxemia Essential hypertension Unspecified essential hypertension documented in this encounter Additional Health Concerns [...] 02/11/2025 Patient has chronic kidney disease 02/11/2025 Weekly blood pressure task 02/17/2025 Weekly blood pressure task 02/17/2025 Patient has chronic kidney disease 02/17/2025 Patient has chronic kidney disease 02/17/2025 Weekly blood pressure task 02/17/2025 Weekly blood pressure task 02/17/2025 Patient has chronic kidney disease 02/17/2025 Patient has chronic kidney disease 02/17/2025 Weekly blood pressure task 02/17/2025 Weekly blood pressure task 02/17/2025 Patient has chronic kidney disease 02/17/2025 Patient has chronic kidney disease 02/17/2025 Weekly blood pressure task 02/17/2025 Weekly blood pressure task 02/17/2025 Patient has chronic kidney disease 02/17/2025 Patient has chronic kidney disease 02/17/2025 Assessment Noted Time PHQ-9 Depression Total Score: 25 025 11:48 AM EDT documented as of this encounter Care Teams Meat Pickler Relationship Specialty Start Date End Date Name, MD Beau [address] [place] [address] PCP - General Family Medicine 06/01/15 documented as of this encounter
--- OUTSIDE RECORDS SUMMARY | 2025-02-17 13:04 | XMS_ITS | Encounter Summary ---
Author Organization [employer] Address [address] [place] [address] 7 [place] [address] Care Team Providers Care Medical Representative Name Role Phone Name, Beau FRANKS Primary Care Provider [phone] Bambi Jauregui Unavailable Mechelle [place]ont RN Unavailable Unavailable Encounter Details Date Type Department Care Team (Late st Contact Info) Description 08/06/2022 Abstract [facility] [address] [place] [address] [phone] Name, MD Beau [address] [place] [address] Social History Tobacco Use Types Packs/Day Years [...] Description 04/20/2025 1:00 PM EST Office Visit [facility] [address] [place], [place] [phone] Florecita Esquivel, OD [address] [place], [place] [phone] 04/26/2025 3:30 PM EST Office Visit [facility] [address] [place] [address] Name, MD Beau [address] [place] [address] documented as of this encounter Procedures Procedure Name Priority Date/Time Associated Diagnosis Comments COLONOSCOPY Routine 06/09/2020 2:16 PM EDT documented in this encounter Results * Colonoscopy (06/09/2020 2:16 PM EDT) Colonoscopy Normal Normal Narrative Radha Aviles - 06/09/2020 2:16 PM EDT Recommended 10 year follow up ([facility]) us Historical Provider HEALTH MAINTENANCE Final Result documented in this encounter Visit Diagnoses Not on filedocumented in this encounter Care Teams Medical Representative Relationship Specialty Start Date End Date Name, MD Beau [address] [place] [address] PCP - General Family Medicine 06/01/15 Bambi Jauregui Community Health Worker 06/27/2309/14 Mechelle [place]ont RN Post Doctoral Fellow 06/27/23 09/15/23 documented as of this encounter
--- OUTSIDE RECORDS SUMMARY | 2025-02-17 13:04 | XMS_ITS | Encounter Summary ---
Author Organization [employer] Address [address] [place] [address] [address] [address] Care Team Providers Care Analytical Lab Technician Name Role Phone Name, Beau FRANKS Primary Care Provider [phone] Bambi Jauregui Unavailable Mechelle [place]ont RN Unavailable Unavailable Reason for Visit * Reason Comments Med Refill Encounter Details Date Type Department Care Team (Late st Contact Info) Description 06/11/2022 Refill [facility] MED[facility]INE [address] [place] [phone] Beau Stewart MD [address] [place] [address] Iron deficiency Social History Tobacco Use Types [...] 1:00 PM EST Office Visit [facility] OPT[facility] [address] [place], [place] [phone] Florecita Esquivel OD [address] [place] [address] 04/26/2025 3:30 PM EST Office Visit [facility] [address] [place] [address] Beau Stewart MD [address] [place] [address] documented as of this encounter Visit Diagnoses Diagnosis Iron deficiency Disorders of iron metabolism documented in this encounter Care Teams Analytical Lab Technician Relationship Specialty Start Date End Date Name, MD Beau [address] [place] [address] PCP - General Family Medicine 06/01/15 Bambi Jauregui Community Health Worker 06/27/2309/14 Mechelle [place]ont RN Clay Miller 06/27/23 09/15/23 documented as of this encounter
--- OUTSIDE RECORDS SUMMARY | 2025-02-17 13:04 | XMS_ITS | Encounter Summary ---
Author Organization [employer] Address [address] [place] [address] 7 [place] [address] Care Team Providers Care Keyboard Teacher Name Role Phone NameBeau MD Primary Care Provider [phone] Bambi Jauregui Unavailable Mechelle [place]ont RN Unavailable Unavailable Reason for Visit * Reason Comments Med Refill Encounter Details Date Type Department Care Team (Late st Contact Info) Description 05/28/2022 Refill [facility] [address] [place] [address] Beau Stewart MD [address] [place] [phone] Asthma, unspecified asthma severity, unspecified whether complicated, [...] Office Visit [facility] [address] [place], [place] [phone] Florecita Esquivel, OD [address] [place] [address] 04/26/2025 3:30 PM EST Office Visit [facility] [address] [place] [phone] Beau Stewart, MD [address] [place] [address] documented as of this encounter Visit Diagnoses Diagnosis Asthma, unspecified asthma severity, unspecified whether complicated, unspecified whether persistent documented in this encounter Care Teams Keyboard Teacher Relationship Specialty Start Date End Date Name, MD Beau [address] [place] [address] PCP - General Family Medicine 06/01/15 Bambi Jauregui Community Health Worker 06/27/2309/14 Mechelle [place]ont RN Surg Nurse 06/27/23 09/15/23 documented as of this encounter
--- OUTSIDE RECORDS SUMMARY | 2025-02-17 13:04 | XMS_ITS | Encounter Summary ---
Author Organization [employer] Address [address] [place] [address] 7 [place] [address] Care Team Providers Care Paper Products Supervisor Name Role Phone Name, Beau FRANKS Primary Care Provider [phone] Bambi Jauregui Unavailable Mechelle [place]ont RN Unavailable Unavailable Reason for Visit * Reason Onset Date Comments Med Refill 08/21/2022 Encounter Details Date Type Department Care Team ([facility] st Contact Info) Description 08/21/2022 Telephone [facility] [address] [place] [address] Name, MD Beau [address] [place] [address] Med Refill Social History Tobacco Use Types [...] 1:00 PM EST Office Visit [facility] OPT[facility] [address] [place] [address] Florecita Esquivel, OD [address] [place] [address] 04/26/2025 3:30 PM EST Office Visit [facility] [address] [place] [address] Name, MD Beau [address] [place] [address] documented as of this encounter Visit Diagnoses Not on filedocumented in this encounter Care Teams Paper Products Supervisor Relationship Specialty Start Date End Date Beau Stewart MD [address] [place] [address] PCP - General Family Medicine 06/01/15 Bambi Jauregui Community Health Worker 06/27/2309/14 Mechelle [place]ont, ISABEL Motion Picture Camera Lens Technician 06/27/23 09/15/23 documented as of this encounter
--- OUTSIDE RECORDS SUMMARY | 2025-02-17 13:04 | XMS_ITS | Encounter Summary ---
Author Organization [employer] Address [address] [place] [address] 7 [place] [address] Care Team Providers Care Meter Maintenance Person Name Role Phone Name, Beau FRANKS Primary Care Provider Reason for Visit * Reason Comments Med Refill Encounter Details Date Type Department Care Team ([facility] st Contact Info) Description 10/18/2023 Refill [facility] [address] [place], [place] [phone] Chiquis Harris MD [address] [place] [address] Iron deficiency Social History Tobacco Use Types [...] PM EST Office Visit [facility] OPT[facility] [address] [place] [address] Alvin, Florecita, OD [address] [place] [address] 04/26/2025 3:30 PM EST Office Visit [facility] [address] [place] [address] Name, MD Beau [address] [place] [address] documented as of this encounter Visit Diagnoses Diagnosis Iron deficiency Disorders of iron metabolism documented in this encounter Additional Health Concerns Assessment Noted Time PHQ-9 Depression Total Score: 19 023 3:46 PM EDT documented as of this encounter Care Teams Meter Maintenance Person Relationship Specialty Start Date End Date Name, MD Beau [address] [place] [address] PCP - General Family Medicine 06/01/15 documented as of this encounter
--- OUTSIDE RECORDS SUMMARY | 2025-02-17 13:04 | XMS_ITS | Encounter Summary ---
Author Organization [employer] Address [address] [place] [address] 7t [place] [address] Care Team Providers Care Tank Truck Mechanic Name Role Phone Name, Beau FRANKS Primary Care Provider [phone] Bambi Jauregui Unavailable Mechelle [place]ont RN Unavailable Unavailable Encounter Details Date Type Department Care Team (Late st Contact Info) Description 07/02/2022 Orders Only [facility] MEDICINE [address] [place] [address] [phone] Ekaterina Pappas LPN Social History Tobacco Use [...] Description 04/20/2025 1:00 PM EST Office Visit [facility] OPT[facility] [address] [place], [place] [phone] Florecita Esquivel, OD [address] [place] [address] 04/26/2025 3:30 PM EST Office Visit [facility] [address] [place] [address] Name, MD Beau [address] [place] [address] documented as of this encounter Visit Diagnoses Not on filedocumented in this encounter Care Teams Tank Truck Mechanic Relationship Specialty Start Date End Date Name, MD Beau [address] [place] [address] PCP - General Family Medicine 06/01/15 Bambi Jauregui Community Health Worker 06/27/2309/14 Mechelle [place]ont RN Pullman Conductor 06/27/23 09/15/23 documented as of this encounter
--- OUTSIDE RECORDS SUMMARY | 2025-02-17 13:04 | XMS_ITS | Encounter Summary ---
Author Organization [employer] Address [address] [facility] 7t [place] [address] Care Team Providers Care Pumper Gager Name Role Phone Name, Beau FRANKS Primary Care Provider Encounter Details Date Type Department Care Team (Latest Contact Info) Description 02/17/2025 Travel Social History Tobacco Use Types Packs/Day [...] [facility] [address] [place] [address] Alvin, Florecita, OD 230 [place] [address] 04/26/2025 3:30 PM EST Office Visit [facility] MED[facility] 230 [place] [address] Name, MD Beau [address] [place], [place] [phone] documented as of this encounter Goals Goal [...] Plan Weekly blood pressure task No Nava Karolnia Patient has chronic kidney disease Care Plan Patient has chronic kidney disease No NavaCollin michelleKarolina Patient has chronic kidney disease Care Plan Patient has chronic kidney disease No Nilesh Navaa Weekly blood pressure task Care Plan Weekly [...] Plan Patient has chronic kidney disease No Hosea, She, RN Patient has chronic kidney disease Care [...] Care Plan Weekly blood pressure task No Lesyl Nice RN Patient has chronic kidney disease [...] Triana RN documented as of this encounter Visit [...] documented as of this encounter Care Teams Pumper Gager Relationship Specialty Start Date End Date Name, MD Beau [address] [place] [address] PCP - General Family Medicine 06/01/15 documented as of this encounter
--- OUTSIDE RECORDS SUMMARY | 2025-02-17 13:04 | XMS_ITS | Encounter Summary ---
Author Organization [email or web address] Address [address] [place] [address] 7 [place] [address] Care Team Providers Care Rn Primary Care Name Role Phone Name, Beau FRANKS Primary Care Provider [phone] Reason for Visit * Reason Comments Med Refill Encounter Details Date Type Department Care Team ([facility] st Contact Info) Description 06/02/2024 Refill [facility] MED[facility]INE [address] [place], [place] [phone] Name, MD Beau [address] [place] [address] Asthma, unspecified asthma severity, unspecified whether complicated, [...] Description 04/20/2025 1:00 PM EST Office Visit [facility] OPT[facility] [address] [place] [address] Alvin, Florecita, OD [address] [place] [address] 04/26/2025 3:30 PM EST Office Visit [facility] MED[facility] [address] [place] [address] Name, MD Beau [address] [place] [address] documented as of this encounter Visit Diagnoses Diagnosis Asthma, unspecified asthma severity, unspecified whether complicated, unspecified whether persistent documented in this encounter Additional Health Concerns Assessment Noted Time PHQ-9 Depression Total Score: 24 024 3:46 PM EST documented as of this encounter Care Teams Rn Primary Care Relationship Specialty Start Date End Date Beau Stewart MD [address] [place] [address] PCP - General Family Medicine 06/01/15 documented as of this encounter
--- OUTSIDE RECORDS SUMMARY | 2025-02-17 13:04 | XMS_ITS | Encounter Summary ---
Author Organization [employer] Address [address] [place] [address] 7 [place] [address] Care Team Providers Care Spinning Doffer Name Role Phone Name, Beau FRANKS Primary Care Provider [phone] Reason for Visit * Reason Comments Med Refill Encounter Details Date Type Department Care Team ([facility] st Contact Info) Description 09/19/2023 Refill [facility] MEDICINE [address] [place], [place] [phone] Name, MD Beau [address] [place], [place] [phone] Erectile dysfunction, unspecified erectile dysfunction type Social [...] Description 04/20/2025 1:00 PM EST Office Visit [facility] OPTOMETRY [address] [place] [address] Alvin, Florecita, OD [address] [place] [address] 04/26/2025 3:30 PM EST Office Visit [facility] MEDICINE [address] [place] [address] Name, MD Beau [address] [place] [address] documented as of this encounter Visit Diagnoses Diagnosis Erectile dysfunction, unspecified erectile dysfunction type documented in this encounter Additional Health Concerns Assessment Noted Time PHQ-9 Depression Total Score: 19 023 3:46 PM EDT documented as of this encounter Care Teams Spinning Doffer Relationship Specialty Start Date End Date NameBeau MD [address] [place] [address] PCP - General Family Medicine 06/01/15 documented as of this encounter
--- OUTSIDE RECORDS SUMMARY | 2025-02-17 13:04 | XMS_ITS | Clinical Summary ---
Author Organization [facility] Address [address] [place] [address] Phone Care Team Providers Care Blanket Binder Name Role Phone Name, Beau FRANKS Primary Care Provider [phone] Medications albuterol (2.5 MG/3ML) 0.083% nebulizer solution [...] Insurance Medicaid [place] Medicaid [place] Care Teams Blanket Binder Relationship Specialty Start Date End Date Name, MD Beau [address] [place] [address] PCP - General Internal Medicine 10/05/21
--- OUTSIDE RECORDS SUMMARY | 2025-02-17 13:04 | XMS_ITS | Encounter Summary ---
Author Organization [employer] Address [address] [place] [address] 7t [place] [address] Care Team Providers Care Special Education Tutor Name Role Phone Name, Beau FRANKS Primary Care Provider [phone] Reason for Visit * Reason Comments Med Refill Encounter Details Date Type Department Care Team ([facility] st Contact Info) Description 04/07/2024 Refill [facility] MEDICINE [address] [place], [place] [phone] Laura Russell MD [address] [place], [place] [phone] Asthma, unspecified asthma severity, unspecified whether complicated, [...] 1:00 PM EST Office Visit [facility] OPTOMETRY [address] [place] [address] Alvin, Florecita, OD [address] [place] [address] 04/26/2025 3:30 PM EST Office Visit [facility] MEDICINE [address] [place] [address] NameBeau MD [address] [place] [address] documented as of this encounter Visit Diagnoses Diagnosis Asthma, unspecified asthma severity, unspecified whether complicated, unspecified whether persistent documented in this encounter Additional Health Concerns Assessment Noted Time PHQ-9 Depression Total Score: 24 024 3:46 PM EST documented as of this encounter Care Teams Special Education Tutor Relationship Specialty Start Date End Date Beau Stewart MD [address] [place] [address] PCP - General Family Medicine 06/01/15 documented as of this encounter
--- OUTSIDE RECORDS SUMMARY | 2025-02-17 13:04 | XMS_ITS | Encounter Summary ---
Author Organization [employer] Address [address] [place] [address] 7 [place] [address] Care Team Providers Care Right Of Way Agent Name Role Phone Name, Beau FRANKS Primary Care Provider [phone] Bambi Jauregui Unavailable Mechelle Dumont RN Unavailable Unavailable Encounter Details Date Type Department Care Team (Late st Contact Info) Description 02/28/2022 Orders Only [facility] [address] [place], [place] [phone] Kindra Woodall LPN Social History Tobacco Use [...] 04/20/2025 1:00 PM EST Office Visit [facility] OPTOMETRY [address] [place] [address] AlvinFlorecita holloway, OD [address] [place] [address] 04/26/2025 3:30 PM EST Office Visit [facility] MEDICINE [address] [place] [address] Pat, MD Beau [address] [place] [address] documented as of this encounter Visit Diagnoses Not on filedocumented in this encounter Care Teams Right Of Way Agent Relationship Specialty Start Date End Date Name, MD Beau [address] [place] [address] PCP - General Family Medicine 06/01/15 Bambi Jauregui Community Health Worker 06/27/2309/14 Mechelle Dumont RN Sheet Metal Shop Helper 06/27/23 09/15/23 documented as of this encounter
--- OUTSIDE RECORDS SUMMARY | 2025-02-17 13:04 | XMS_ITS | Encounter Summary ---
Author Organization [employer] Address [address] [place] [address] 7 [place] [address] Care Team Providers Care Optical Laboratory Manager Name Role Phone Name, Beau FRANKS Primary Care Provider [phone] Reason for Visit * Reason Onset Date Comments Med Refill 10/04/2023 Encounter Details Date Type Department Care Team (Late st Contact Info) Description 10/04/2023 Telephone [facility] [address] [place], [place] [phone] Name, MD Beau 230 [place] [address] Med Refill Social History Tobacco Use Types [...] MG EC tablet To be sent to: [id number] [place], [place] - [address] [facility] documented in this encounter Plan of Treatment Upcoming Encounters Date Type Department Care Team (Late st Contact Info) Description 04/20/2025 1:00 PM EST Office Visit [facility] [address] [place] [address] Florecita Esquivel, OD 230 [place] [address] 04/26/2025 3:30 PM EST Office Visit [facility] 230 [place] [address] Name, MD Beau 230 [place] [address] documented as of this encounter Visit Diagnoses Not on filedocumented in this encounter Additional Health Concerns Assessment Noted Time PHQ-9 Depression Total Score: 19 023 3:46 PM EDT documented as of this encounter Care Teams Optical Laboratory Manager Relationship Specialty Start Date End Date Name, MD Beau 230 [place] [address] PCP - General Family Medicine 06/01/15 documented as of this encounter
--- OUTSIDE RECORDS SUMMARY | 2025-02-17 13:04 | XMS_ITS | Encounter Summary ---
Author Organization [employer] Address [address] [place] [address] 7t [place] [address] Care Team Providers Care Form Setter Helper Name Role Phone Name, Beau FRANKS Primary Care Provider [phone] Reason for Visit * Reason Comments Med Refill Encounter Details Date Type Department Care Team ([facility] st Contact Info) Description 10/04/2023 Refill [facility] MED[facility]INE 230 [place], [place] [phone] Name, MD Beau 230 [place] [address] Social History Tobacco Use Types Packs/Day Years [...] [facility] [address] [place] [address] Alvin, Florecita, OD 230 [place] [address] 04/26/2025 3:30 PM EST Office Visit [facility] MED[facility]INE 230 [place] [address] NameBeau MD 230 [place] [address] documented as of this encounter Visit Diagnoses Not on filedocumented in this encounter Additional Health Concerns Assessment Noted Time PHQ-9 Depression Total Score: 19 023 3:46 PM EDT documented as of this encounter Care Teams Form Setter Helper Relationship Specialty Start Date End Date Name, MD Beau 230 [place] [address] PCP - General Family Medicine 06/01/15 documented as of this encounter
--- OUTSIDE RECORDS SUMMARY | 2025-02-17 13:04 | XMS_ITS | Encounter Summary ---
Author Organization [employer] Address [address] [place] [address] 7 [place] [address] Care Team Providers Care Respiratory Therapy Director Name Role Phone Name, Beau FRANKS Primary Care Provider [phone] Bambi Jauregui Unavailable Mechelle Dumont RN Unavailable Unavailable Encounter Details Date Type Department Care Team (Late st Contact Info) Description 03/02/2022 Orders Only [facility] [address] [place] [address] [phone] Lelia Moeller RN Social History Tobacco Use [...] Description 04/20/2025 1:00 PM EST Office Visit [facility] OPTOM[facility] [address] [place], [place] [phone] Florecita Esquivel, OD 230 [place] [address] 04/26/2025 3:30 PM EST Office Visit [facility] 230 [place] [address] Beau Stewart MD 230 [place] [address] documented as of this encounter Visit Diagnoses Not on filedocumented in this encounter Care Teams Respiratory Therapy Director Relationship Specialty Start Date End Date Name, MD Beau 230 [place] [address] PCP - General Family Medicine 06/01/15 Bambi Jauregui Community Health Worker 06/27/2309/14 Mechelle Dumont RN Granite Countertop Installer 06/27/23 09/15/23 documented as of this encounter
--- OUTSIDE RECORDS SUMMARY | 2025-02-17 13:04 | XMS_ITS | Encounter Summary ---
Author Organization [employer] Address [address] [place] [address] 7 [place] [address] Care Team Providers Care Minilab Operator Name Role Phone NameBeau MD Primary Care Provider [phone] Bambi Jauregui Unavailable Mechelle Dumont RN Unavailable Unavailable Reason for Visit * Reason Comments Med Refill Encounter Details Date Type Department Care Team (Late st Contact Info) Description 06/08/2022 Refill [facility] MEDICINE [address] [place] [address] Beau Stewart MD [address] [place] [address] Asthma, unspecified asthma severity, unspecified whether complicated, [...] 04/20/2025 1:00 PM EST Office Visit [facility] OPTOMETRY [address] [place], [place] [phone] Florecita Esquivel, OD 230 [place] [address] 04/26/2025 3:30 PM EST Office Visit [facility] MEDICINE [address] [place] [address] Beau Stewart, MD 230 [place] [address] documented as of this encounter Visit Diagnoses Diagnosis Asthma, unspecified asthma severity, unspecified whether complicated, unspecified whether persistent documented in this encounter Care Teams Minilab Operator Relationship Specialty Start Date End Date Name, MD Beau 230 [place] [address] PCP - General Family Medicine 06/01/15 Bambi Jauregui Community Health Worker 06/27/2309/14 Mechelle Dumont RN All Source Collection Manager 06/27/23 09/15/23 documented as of this encounter
--- OUTSIDE RECORDS SUMMARY | 2025-02-17 13:04 | XMS_ITS | Encounter Summary ---
Author Organization [employer] Address [address] [place] [address] 7 [place] [address] Care Team Providers Care Regulatory Agency Director Name Role Phone Name, Beau FRANKS Primary Care Provider [phone] Reason for Visit * Reason Comments Med Refill Encounter Details Date Type Department Care Team ([facility] st Contact Info) Description 02/11/2025 Refill [facility] MED[facility]INE 230 [place], [place] [phone] Name, MD Beau 230 [place] [address] Asthma, unspecified asthma severity, unspecified whether complicated, [...] Description 04/20/2025 1:00 PM EST Office Visit [facility] OPTOMETRY [address] [place] [address] Alvin, Florecita, OD 230 [place] [address] 04/26/2025 3:30 PM EST Office Visit [facility] MED[facility] 230 [place] [address] Name, MD Beau 230 [place] [address] documented as of this encounter Goals Goal [...] documented as of this encounter Care Teams Regulatory Agency Director Relationship Specialty Start Date End Date Name, MD Beau 230 [place] [address] PCP - General Family Medicine 06/01/15 documented as of this encounter
--- OUTSIDE RECORDS SUMMARY | 2025-02-17 13:05 | XMS_ITS | Encounter Summary ---
Author Organization [employer] Address [address] [place] [address] 7t [place] [address] Care Team Providers Care Blasting Helper Name Role Phone Name, Beau FRANKS Primary Care Provider [phone] Bambi Jauregui Unavailable Mechelle Dumont RN Unavailable Unavailable Encounter Details Date Type Department Care Team ([facility] st Contact Info) Description 04/08/2023 Orders Only [facility] CHC MED & PEDS [address] [place], [place] [phone] Ekaterina Pappas LPN Social History Tobacco Use [...] Description 04/20/2025 1:00 PM EST Office Visit [facility] OPTOMETRY [address] [place] [address] Alvin, Florecita, OD 230 [place] [address] 04/26/2025 3:30 PM EST Office Visit [facility] MEDICINE 230 [place] [address] Name, MD Beau 230 [place] [address] documented as of this encounter Visit Diagnoses Not on filedocumented in this encounter Additional Health Concerns Assessment Noted Time PHQ-9 Depression Total Score: 19 023 3:46 PM EDT documented as of this encounter Care Teams Blasting Helper Relationship Specialty Start Date End Date Name, MD Beau 230 [place] [address] PCP - General Family Medicine 06/01/15 Bambi Jauregui Community Health Worker 06/27/2309/14 Mechelle Dumont, ISABEL International Guest Coordinator 06/27/23 09/15/23 documented as of this encounter
--- OUTSIDE RECORDS SUMMARY | 2025-02-17 13:05 | XMS_ITS | Encounter Summary ---
Author Organization [employer] Address [address] [place] [address] 7 [place] [address] Care Team Providers Care Steel Floor Pan Placing Supervisor Name Role Phone Name, Beau FRANKS Primary Care Provider [phone] Reason for Visit * Reason Comments Med Refill Encounter Details Date Type Department Care Team ([facility] st Contact Info) Description 01/12/2025 Refill [facility]INE 230 [place], [place] [phone] Name, MD Beau 230 [place] [address] Asthma, unspecified asthma severity, unspecified whether complicated, [...] [facility] [address] [place] [address] Alvin, Florecita, OD 230 [place] [address] 04/26/2025 3:30 PM EST Office Visit [facility]INE 230 [place] [address] Name, MD Beau 230 [place] [address] documented as of this encounter Visit Diagnoses Diagnosis Asthma, unspecified asthma severity, unspecified whether complicated, unspecified whether persistent documented in this encounter Additional Health Concerns Assessment Noted Time PHQ-9 Depression Total Score: 25 025 11:48 AM EDT documented as of this encounter Care Teams Steel Floor Pan Placing Supervisor Relationship Specialty Start Date End Date Beau Stewart MD [address] [place] [address] PCP - General Family Medicine 06/01/15 documented as of this encounter
--- OUTSIDE RECORDS SUMMARY | 2025-02-17 13:05 | XMS_ITS | Encounter Summary ---
Author Organization [employer] Address [address] [place] [address] 7 [place] [address] Care Team Providers Care Stock Fitter Name Role Phone Name, Beau FRANKS Primary Care Provider [phone] Reason for Visit * Reason Comments Med Refill Encounter Details Date Type Department Care Team ([facility] st Contact Info) Description 12/12/2024 Refill [facility] MEDICINE 230 [place], [place] [phone] Name, MD Beau 230 [place] [address] Asthma, unspecified asthma severity, unspecified whether complicated, [...] Description 04/20/2025 1:00 PM EST Office Visit [facility] OPTOMETRY 267 [place] [address] Alvin, Florecita, OD [address] [place] [address] 04/26/2025 3:30 PM EST Office Visit [facility] MEDICINE [address] [place] [address] Name, MD Beau 230 [place] [address] documented as of this encounter Visit Diagnoses Diagnosis Asthma, unspecified asthma severity, unspecified whether complicated, unspecified whether persistent documented in this encounter Additional Health Concerns Assessment Noted Time PHQ-9 Depression Total Score: 25 025 11:48 AM EDT documented as of this encounter Care Teams Stock Fitter Relationship Specialty Start Date End Date Beau Stewart MD [address] [place] [address] PCP - General Family Medicine 06/01/15 documented as of this encounter
--- OUTSIDE RECORDS SUMMARY | 2025-02-17 13:05 | XMS_ITS | Encounter Summary ---
Author Organization [employer] Address [address] [place] [address] 7 [place] [address] Care Team Providers Care Pharmacist Apprentice Name Role Phone Name, Beau FRANKS Primary Care Provider [phone] Bambi Jauregui Unavailable Mechelle Dumont RN Unavailable Unavailable Reason for Visit * Reason Onset Date Comments PT1 11/14/2022 Encounter Details Date Type Department Care Team ([facility] st Contact Info) Description 11/14/2022 Telephone [facility]INE 230 [place] [address] Name, MD Beau 230 [place] [address] PT1 Social History Tobacco Use Types Packs/Day [...] 10:01 AM EDT Allergy PT-1 Request Number [id number] is Pending Dr Salazar PT-1 Request Number [id number] is Pending Ortho PT-1 Request Number [id number] is Pending Pt has an active PT1 for [facility] * Telephone Encounter - Melva Terrence - 11/14/2022 3:57 PM EDT PT1 Address verified Date: 11/20/22 Time: 2 pm Visits: Address: [address] [place] Facility: Allergy Injection Wheel Chair: n/a District Plant Supervisor Needed: no PT1 Date: 12/05/22 Time: 11:30 am Visits: Address: [address] [place] Facility: Orthopedic Wheel Chair: n/a District Plant Supervisor Needed: no PT1 Date: 12/07/22 Time: 11:15 am Visits: Address: 230 [place] [address] Facility: PCP Wheel Chair: n/a District Plant Supervisor Needed: no PT1 Date: 12/07/22 Time: 2:30 pm Visits: Address: [address] [place] Facility: Dr. Salazar Wheel Chair: n/a District Plant Supervisor Needed: no documented in this encounter Plan of Treatment Upcoming Encounters Date Type Department Care Team (Late st Contact Info) Description 04/20/2025 1:00 PM EST Office Visit [facility] OPTOMETRY [address] [place] [address] Florecita Esquivel, OD 230 [place] [address] 04/26/2025 3:30 PM EST Office Visit [facility] 230 [place] [address] Name, MD Beau 230 [place] [address] documented as of this encounter Visit Diagnoses Not on filedocumented in this encounter Care Teams Pharmacist Apprentice Relationship Specialty Start Date End Date Name, MD Beau 230 [place] [address] PCP - General Family Medicine 06/01/15 Bambi Jauregui Community Health Worker 06/27/2309/14 Mechelle Dumont, ISABEL Cyanide Pot Hardener 06/27/23 09/15/23 documented as of this encounter
--- OUTSIDE RECORDS SUMMARY | 2025-02-17 13:05 | XMS_ITS | Encounter Summary ---
Author Organization [employer] Address [address] [place] [address] 7 [place] [address] Care Team Providers Care Hadoop Architect Name Role Phone Name, Beau FRANKS Primary Care Provider [phone] Bambi Jauregui Unavailable Mechelle Dumont RN Unavailable Unavailable Encounter Details Date Type Department Care Team (Late st Contact Info) Description 03/26/2022 Orders Only [facility] CHC MED & PEDS [address] [place], [place] [phone] Kindra Woodall LPN Social History Tobacco Use [...] Description 04/20/2025 1:00 PM EST Office Visit [facility] OPTOMETRY [address] [place] [address] AlvinFlorecita holloway, OD 230 [place] [address] 04/26/2025 3:30 PM EST Office Visit [facility] MEDICINE 230 [place] [address] Name, MD Beau 230 [place] [address] documented as of this encounter Visit Diagnoses Not on filedocumented in this encounter Care Teams Hadoop Architect Relationship Specialty Start Date End Date Name, MD Beau 230 [place] [address] PCP - General Family Medicine 06/01/15 Bambi Jauregui Community Health Worker 06/27/2309/14 Mechelle Dumont RN Cell Geneticist 06/27/23 09/15/23 documented as of this encounter
--- OUTSIDE RECORDS SUMMARY | 2025-02-17 13:05 | XMS_ITS | Encounter Summary ---
Author Organization [employer] Address [address] [place] [address] 7 [place] [address] Care Team Providers Care Social Insurance Specialist Name Role Phone Name, Beau FRANKS Primary Care Provider [phone] Bambi Jauregui Unavailable Mechelle Dumont RN Unavailable Unavailable Reason for Visit * Reason Comments Med Refill Encounter Details Date Type Department Care Team ([facility] st Contact Info) Description 02/21/[address] [facility] MEDICINE 230 [place] [address] Name, MD Beau 230 [place] [address] Chronic pain syndrome Social History Tobacco Use [...] PM EST Office Visit [facility] OPTOMETRY 267 [place] [address] Alvin, Florecita, OD 230 [place] [address] 04/26/2025 3:30 PM EST Office Visit [facility] MED[facility]INE 230 [place] [address] Name, MD Beau 230 [place] [address] documented as of this encounter Visit Diagnoses Diagnosis Chronic pain syndrome documented in this encounter Additional Health Concerns Assessment Noted Time PHQ-9 Depression Total Score: 19 023 3:46 PM EDT documented as of this encounter Care Teams Social Insurance Specialist Relationship Specialty Start Date End Date Name, MD Beau [address] [place] [address] PCP - General Family Medicine 06/01/15 Bambi Jauregui Community Health Worker 06/27/2309/14 Mechelle Dumont RN Advanced Manufacturing Technician 06/27/23 09/15/23 documented as of this encounter
--- OUTSIDE RECORDS SUMMARY | 2025-02-17 13:05 | XMS_ITS | Encounter Summary ---
Author Organization [employer] Address [address] [place] [address] 7 [place] [address] Care Team Providers Care Blaster Helper Name Role Phone Name, Beau FRANKS Primary Care Provider [phone] Bambi Jauregui Unavailable Mechelle Dumont RN Unavailable Unavailable Reason for Visit * Reason Comments Med Refill Encounter Details Date Type Department Care Team ([facility] st Contact Info) Description 06/13/2023 Refill [facility] MEDICINE 230 [place] [address] Name, MD Beau 230 [place] [address] Asthma, unspecified asthma severity, unspecified whether complicated, [...] Description 04/20/2025 1:00 PM EST Office Visit [facility] OPTOMETRY [address] [place] [address] Alvin, Florecita, OD [address] [place] [address] 04/26/2025 3:30 PM EST Office Visit [facility] MEDICINE 230 [place] [address] NameBeau MD 230 [place] [address] documented as of this encounter Visit Diagnoses Diagnosis Asthma, unspecified asthma severity, unspecified whether complicated, unspecified whether persistent documented in this encounter Additional Health Concerns Assessment Noted Time PHQ-9 Depression Total Score: 19 023 3:46 PM EDT documented as of this encounter Care Teams Blaster Helper Relationship Specialty Start Date End Date Name, MD Beau [address] [place] [address] PCP - General Family Medicine 06/01/15 Bambi Jauregui Community Health Worker 06/27/2309/14 Mechelle Dumont RN Bumper Machine Operator 06/27/23 09/15/23 documented as of this encounter
--- OUTSIDE RECORDS SUMMARY | 2025-02-17 13:05 | XMS_ITS | Encounter Summary ---
Author Organization [employer] Address [address] [place] [address] 7 [place] [address] Care Team Providers Care Machine Fur Cleaner Name Role Phone Name, Beau FRANKS Primary Care Provider [phone] Reason for Visit * Reason Onset Date Comments Med Refill 12/11/2024 Encounter Details Date Type Department Care Team ([facility] st Contact Info) Description 12/11/2024 Telephone [facility] MEDICINE 230 [place], [place] [phone] Name, MD Beau 230 [place] [address] Med Refill Social History Tobacco Use Types [...] Base) MCG/ACT inhaler To be sent to: [id number] [place] [facility] [address] [facility] Requesting more refills on script documented in this encounter Plan of Treatment Upcoming Encounters Date Type Department Care Team (Late st Contact Info) Description 04/20/2025 1:00 PM EST Office Visit [facility] OPTOMETRY [address] [place] [address] Florecita Esquivel, OD 230 [place] [address] 04/26/2025 3:30 PM EST Office Visit [facility] MEDICINE 230 [place] [address] Name, MD Beau 230 [place], [place] [phone] documented as of this encounter Visit Diagnoses Not on filedocumented in this encounter Additional Health Concerns Assessment Noted Time PHQ-9 Depression Total Score: 25 025 11:48 AM EDT documented as of this encounter Care Teams Machine Fur Cleaner Relationship Specialty Start Date End Date Name, MD Beau 230 [place] [address] PCP - General Family Medicine 06/01/15 documented as of this encounter
--- OUTSIDE RECORDS SUMMARY | 2025-02-17 13:05 | XMS_ITS | Encounter Summary ---
Author Organization [employer] Address [address] [place] [address] 7t [place] [address] Care Team Providers Care Telecom Network Manager Name Role Phone Name, Beau FRANKS Primary Care Provider [phone] Bambi Jauregui Unavailable Mechelle Dumont RN Unavailable Unavailable Reason for Visit * Reason Comments Med Refill Encounter Details Date Type Department Care Team ([facility] st Contact Info) Description 01/31/[address] [facility] CHC MED & PEDS [address] [place], [place] [phone] Name, MD Beau 230 [place] [address] Asthma, unspecified asthma severity, unspecified whether complicated, [...] PM EST Office Visit [facility] OPTOMETRY [address] [place] [address] AlvinFlorecita holloway, OD 230 [place] [address] 04/26/2025 3:30 PM EST Office Visit [facility] MEDICINE 230 [place] [address] NameBeau MD 230 [place] [address] documented as of this encounter Visit Diagnoses Diagnosis Asthma, unspecified asthma severity, unspecified whether complicated, unspecified whether persistent documented in this encounter Additional Health Concerns Assessment Noted Time PHQ-9 Depression Total Score: 19 023 3:46 PM EDT documented as of this encounter Care Teams Telecom Network Manager Relationship Specialty Start Date End Date NameBeau MD [address] [place] [address] PCP - General Family Medicine 06/01/15 Bambi Jauregui Community Health Worker 06/27/2309/14 Mechelle Dumont RN Blocker Hand 06/27/23 09/15/23 documented as of this encounter
--- OUTSIDE RECORDS SUMMARY | 2025-02-17 13:05 | XMS_ITS | Encounter Summary ---
Author Organization [employer] Address [address] [place] [address] 7 [place] [address] Care Team Providers Care Fuel Cell Technician Name Role Phone Name, eBau FRANKS Primary Care Provider [phone] Reason for Visit * Reason Comments Med Refill Encounter Details Date Type Department Care Team ([facility] st Contact Info) Description 10/21/2024 Refill [facility] MEDICINE 230 [place], [place] [phone] Felecia Gunderson NP 230 [place] [address] Asthma, unspecified asthma severity, unspecified whether complicated, [...] [facility] OPTOMETRY [address] [place] [address] Alvin, Florecita, OD 230 [place] [address] 04/26/2025 3:30 PM EST Office Visit [facility] MEDICINE 230 [place] [address] Name, MD Beau [address] [place] [address] documented as of this encounter Visit Diagnoses Diagnosis Asthma, unspecified asthma severity, unspecified whether complicated, unspecified whether persistent documented in this encounter Additional Health Concerns Assessment Noted Time PHQ-9 Depression Total Score: 24 024 3:46 PM EST documented as of this encounter Care Teams Fuel Cell Technician Relationship Specialty Start Date End Date Beau Stewart MD [address] [place] [address] PCP - General Family Medicine 06/01/15 documented as of this encounter
--- OUTSIDE RECORDS SUMMARY | 2025-02-17 13:05 | XMS_ITS | Encounter Summary ---
Author Organization [employer] Address [address] [place] [address] 7 [place] [address] Care Team Providers Care Business Services Officer Name Role Phone Name, Beau FRANKS Primary Care Provider [phone] Reason for Visit * Reason Onset Date Comments Nurse Triage 02/17/2025 Encounter Details Date Type Department Care Team ([facility] st Contact Info) Description 02/17/2025 Telephone [facility] [address] [place], [place] [phone] Name, MD Beau [address] [place] [address] Nurse Triage Social History Tobacco Use Types [...] encounter Miscellaneous Notes * Telephone Encounter - Dina Triana RN - 02/17/2025 11:43 AM EST Assessment: Pt presented to blue team for nurse BP check. Pt reports productive cough with green and clear sputum (worse at night), SOB, and reports varying O2's at home lowest being 89%. Pt denies chest pain, blurry vision, dizziness, headache. Symptoms have been present for 1 month. Symptoms are constant. VS as follows (if applicable): Temp 97.5 orally HR 117 Resp 24 labored breating BP 142/86 left Arm; Device: Manual Cuff Size: large O2 sat was varying going from 92%-95% on room air Allergies[1] Current Medications[2] Patient Active Problem List Diagnosis Date Noted Chest pain, non-cardiac 02/13/2025 Acid reflux 11/19/2024 Acute hypoxemic respiratory failure (CMS/HCC) (HCC) 11/19/2024 Lumbar radiculopathy, chronic 11/19/2024 Cirrhosis ([facility] ([facility]) 11/19/2024 Diabetes ([facility]) 11/19/2024 Edema 11/19/2024 Elevated alkaline phosphatase measurement 11/19/2024 Environmental allergies 11/19/2024 Erosive esophagitis 11/19/2024 Foot drop, left 11/19/2024 Gallstone pancreatitis 11/19/2024 Hand numbness 11/19/2024 Hyperlipidemia 11/19/2024 Iron deficiency anemia 11/19/2024 Lower extremity edema 11/19/2024 Major depressive disorder, severe ([facility] ([facility]) 11/19/2024 Paresthesia 11/19/2024 Severe persistent allergic asthma ([facility]) 11/19/2024 Heart failure with preserved ejection fraction ([facility]) 11/19/2024 Depression 11/19/2024 Orthopnea 08/12/2024 Toenail avulsion 03/27/2024 Dental root caries 07/26/2023 Dental abscess 06/06/2023 Low magnesium level 04/17/2023 Type 2 diabetes mellitus, with long-term current use of insulin ([facility]) 01/16/2023 Type 2 diabetes mellitus with diabetic polyneuropathy ([facility]) 11/06/2022 Left ventricular hypertrophy 11/06/2022 Helicobacter pylori (H. 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 for provider evaluation. Pt BP check cancelled andappointment in [facility] booked. Report given to ISABEL Crandall RN [1] Allergies Allergen Reactions Dulaglutide Gramineae Pollens Other Reaction(s): ichy eyes runny nose [2] Current Outpatient Medications Medication Sig Dispense Refill acetaminophen (Tylenol) 500 MG tablet Take 1 tablet (500 mg) by mouth every 6 (six) hours if neededfor mild pain for up to 20 doses. 20 tablet 0 albuterol (2.5 MG/3ML) 0.083% nebulizer solution USE 3 ML VIA NEBULIZER EVERY MORNING AND EVERY AFTERNOON AND EVERY NIGHT AT BEDTIME 90 mL 1 Antacid Calcium 500 MG chewable tablet CHEW 1 TABLET BY MOUTH IN THE MORNING, AT NOON, IN THE EVENING, AND AT BEDTIME NEEDED FOR INDIGESTION OR HEARTBURN 90 tablet 11 Arnuity Ellipta 200 MCG/ACT inhaler INHALE 1 PUFF BY MOUTH DAILY. RINSE MOUTH WITH WATER AFTER USE FOR AFTERTASTE AND INCIDENCE OF CANDIDIASIS. DO NOT SWALLOW 30 each 11 B-D ULTRAFINE III SHORT PEN 31G X 8 MM misc USE TO INJECT FOUR TIMES DAILY bumetanide (Bumex) 1 MG tablet Take 1 mg by mouth every other day. chlorhexidine (Peridex) 0.12 % solution Swish 15 [...] times daily. 60 tablet 11 ferrous sulfate (Fe Tabs) 325 (65 Fe) MG EC tablet Take 1 tablet (325 mg) by mouth with breakfast. Do not crush, chew, or split. 30 tablet 11 gabapentin (Neurontin) 300 MG capsule TAKE 1 CAPSULE BY MOUTH THREE TIMES DAILY 90 capsule 0 glimepiride (Amaryl) 2 MG tablet TAKE 1 TABLET BY MOUTH EVERY DAY 90 tablet 1 insulin lispro (HumaLOG) 100 UNIT/ML injection ADMINISTER 10 UNITS UNDER THE SKIN THREE TIMES DAILY ipratropium-albuterol (Duo-Neb) 0.5-2.5 mg/3 mL nebulizer solution Take 3 mL by nebulization every 6 (six) hours if needed for wheezing or shortness of breath. Do not use with your albuterol nebules 180 mL 0 ketoconazole (NIZOral) 2 % shampoo APPLY TOPICALLY 2 TIMES A WEEK 120 mL 2 Lantus 100 UNIT/ML injection ADMINISTER 80 UNITS UNDER THE SKIN DAILY lisinopril (Zestril) 30 MG tablet Take 1 tablet (30 mg) by mouth Once per day. 30 tablet 11 magnesium oxide (Mag-Ox) 400 MG tablet TAKE 1 TABLET BY MOUTH THREE TIMES DAILY 90 tablet 3 metFORMIN (Glucophage) 1000 MG tablet TAKE 1 TABLET BY MOUTH TWICE DAILY WITH THE MORNING AND EVENING MEAL 180 tablet 0 omeprazole (PriLOSEC) [address] capsule TAKE 1 CAPSULE(20 MG) BY MOUTH TWICE DAILY 180 capsule 1 pravastatin (Pravachol) 20 MG tablet TAKE 1 TABLET BY MOUTH AT BEDTIME 90 tablet 1 sodium chloride ([place]) 0.65 % nasal spray Administer 1 spray into each nostril if needed for congestion. 30 mL 12 sodium chloride 0.9 % nebulizer solution USE 1 VIAL VIA NEBULIZER FIVE TO SIX TIMES DAILY spironolactone (Aldactone) 25 MG tablet TAKE 1 TABLET(25 MG) BY MOUTH DAILY 90 tablet 1 tadalafil (Cialis) 20 MG tablet TAKE 1 [...] No current facility-administered medications for this visit. documented in this encounter Plan of Treatment Upcoming Encounters Date Type Department Care Team (Late st Contact Info) Description 04/20/2025 1:00 PM EST Office Visit [facility] [address] [place], [place] [phone] Florecita Esquivel, OD [address] [place], [place] [phone] 04/26/2025 3:30 PM EST Office Visit [facility] [address] [place] [address] Name, MD Beau [address] [place] [address] documented as of this encounter Goals Goal [...] Weekly blood pressure task No Sergey Camacho [place] Weekly blood pressure task Care Plan Weekly blood pressure task No Sergey Camacho [place] Patient has chronic kidney disease Care Plan Patient has chronic kidney disease No Sergey Camacho [place] Patient has chronic kidney disease Care Plan Patient has chronic kidney disease No Sergey Camacho [place] Weekly blood pressure task Care Plan Weekly blood pressure task No Sergey Camacho [place] Weekly blood pressure task Care Plan Weekly blood pressure task No Sergey Camacho [place] Patient has chronic kidney disease Care Plan Patient has chronic kidney disease No Sergey Camacho [place] Patient has chronic kidney disease Care Plan Patient has chronic kidney disease No Sergey Camacho [place] Weekly blood pressure task Care Plan Weekly [...] documented as of this encounter Care Teams Business Services Officer Relationship Specialty Start Date End Date Name, MD Beau [address] [place] [address] PCP - General Family Medicine 06/01/15 documented as of this encounter
--- OUTSIDE RECORDS SUMMARY | 2025-02-17 13:05 | XMS_ITS | Encounter Summary ---
Author Organization [employer] Address [address] [place] [address] 7 [place] [address] Care Team Providers Care Financial Institution Manager Name Role Phone Name, Beau FRANKS Primary Care Provider [phone] Bambi Jauregui Unavailable Mechelle Dumont RN Unavailable Unavailable Encounter Details Date Type Department Care Team (Late st Contact Info) Description 03/07/2022 Orders Only [facility] [address] [place] [id number] Ekaterina Pappas LPN Social History Tobacco Use [...] Description 04/20/2025 1:00 PM EST Office Visit [facility] [address] [place] [address] Florecita Esquivel, OD [address] [place] [address] 04/26/2025 3:30 PM EST Office Visit [facility] [address] [place] [address] Name, MD Beau [address] [place] [address] documented as of this encounter Visit Diagnoses Not on filedocumented in this encounter Care Teams Financial Institution Manager Relationship Specialty Start Date End Date Name, MD Beau [address] [place] [address] PCP - General Family Medicine 06/01/15 Bambi Jauregui Community Health Worker 06/27/2309/14 Mechelle Dumont RN Laborer [place]ading 06/27/23 09/15/23 documented as of this encounter
--- OUTSIDE RECORDS SUMMARY | 2025-02-17 13:05 | XMS_ITS | Encounter Summary ---
Author Organization [employer] Address [address] [place] [address] 7 [place] [address] Care Team Providers Care Data Warehouse Analyst Name Role Phone Name, Beau FRANKS Primary Care Provider [phone] Bambi Jauregui Unavailable Mechelle Dumont RN Unavailable Unavailable Reason for Visit * Reason Comments Med Refill Encounter Details Date Type Department Care Team ([facility] st Contact Info) Description 06/10/2023 Refill [facility] MED[facility] [address] [place] [address] Name, MD Beau [address] [place] [address] Asthma, unspecified asthma severity, unspecified whether complicated, [...] 04/20/2025 1:00 PM EST Office Visit [facility] OPTOMETRY [address] [place] [address] Alvin, Florecita, OD [address] [place] [address] 04/26/2025 3:30 PM EST Office Visit [facility] MED[facility]INE [address] [place] [address] NameBeau MD [address] [place] [address] documented as of this encounter Visit Diagnoses Diagnosis Asthma, unspecified asthma severity, unspecified whether complicated, unspecified whether persistent documented in this encounter Additional Health Concerns Assessment Noted Time PHQ-9 Depression Total Score: 19 023 3:46 PM EDT documented as of this encounter Care Teams Data Warehouse Analyst Relationship Specialty Start Date End Date Name, MD Beau [address] [place] [phone] PCP - General Family Medicine 06/01/15 Bambi Jauregui Community Health Worker 06/27/2309/14 Mechelle Dumont RN [place] 06/27/23 09/15/23 documented as of this encounter
--- OUTSIDE RECORDS SUMMARY | 2025-02-17 13:05 | XMS_ITS | Encounter Summary ---
Author Organization [employer] Address [address] [place] [address] [address] [place] [address] Care Team Providers Care Case Repairer Name Role Phone Name, Beau FRANKS Primary Care Provider [phone] Reason for Visit * Reason Comments Med Refill Encounter Details Date Type Department Care Team ([facility] st Contact Info) Description 11/25/2024 Refill [facility] [address] [place], [place] [phone] Name, MD Beau [address] [place] [address] Asthma, unspecified asthma severity, unspecified whether complicated, [...] Visit [facility] OPTOMETRY [address] [place] [address] Alvin, Florecita, OD [address] [place] [address] 04/26/2025 3:30 PM EST Office Visit [facility] [address] [place] [address] Name, MD Beau [address] [place] [address] documented as of this encounter Visit Diagnoses Diagnosis Asthma, unspecified asthma severity, unspecified whether complicated, unspecified whether persistent documented in this encounter Additional Health Concerns Assessment Noted Time PHQ-9 Depression Total Score: 25 025 11:48 AM EDT documented as of this encounter Care Teams Case Repairer Relationship Specialty Start Date End Date Beau Stewart MD [address] [place] [id number] PCP - General Family Medicine 06/01/15 documented as of this encounter
--- OUTSIDE RECORDS SUMMARY | 2025-02-17 13:05 | XMS_ITS | Clinical Summary ---
Author Organization [employer] Address [address] [place] [address] [address] [place] [address] Care Team Providers Care Customer Support Analyst Name Role Phone Name, Beau FRANKS Primary Care Provider [phone] Allergies Active Allergy Reactions Criticality Noted Date [...] PAIN 100 g 1 06/30/19 25 Active lisinopril (Zestril) 30 MG tabletIndicati [...] tablet 1 01/20/20 25 Active sodium chloride (Rake Nasal [place]) 0.65 % nasal spray Administer 1 spray into each nostril if needed for congestion. 30 mL 12 02/11/20 25 2025 Active ipratropium-al buterol (Duo-Neb) 0.5-2.5 mg/3 mL [...] NEEDED 18 g 1 02/12/20 25 Active Fluticasone Furoate-Vilant xiang (Breo Ellipta) 200-25 MCG/ACT aerosol powder Inhale. Activ e benralizumab (Fasenra Pen) 30 MG/ML injection Inject 30 mg under the skin every 8 (eight) weeks. Active predniSONE (Deltasone) 10 MG tablet Take 4 tablets (40 mg) by mouth Once per day for 2 days, THEN 3 tablets (30 mg) Once per day for 2 days, THEN 2 tablets (20 mg) Once per day for 2 days, THEN 1 tablet (10 mg) Once per day for 2 days. 20 tablet 12/24/2025 Active spironolactone (Aldactone) 25 MG tablet Take 1 tablet (25 mg) by mouth every other day. 01/30/202024 Discontinued Arnuity Ellipta 200 MCG/ACT inhaler INHALE 1 PUFF BY MOUTH DAILY. RINSE MOUTH WITH WATER AFTER USE FOR AFTERTASTE AND INCIDENCE OF CANDIDIASIS. DO NOT SWALLOW 30 each 07/24/192024 Discontinued(A lternate therapy) Ventolin HFA 108 (90 Base) MCG/ACT inhalerIndicat ions:Asthma, unspecified asthma severity, unspecified whether complicated, unspecified whether persistent INHALE 2 PUFFS BY MOUTH EVERY 4 TO 6 HOURS NEEDED 18 g 1 12/15/192024 Discontinued(R eorder (will not trigger notification to Pharmacy)) Ventolin HFA 108 (90 Base) MCG/ACT inhalerIndicat ions:Asthma, unspecified asthma severity, unspecified whether complicated, unspecified whether persistent INHALE 2 PUFFS BY MOUTH EVERY 4 TO 6 HOURS NEEDED 18 g 1 01/20/202024 Discontinued(R eorder (will not trigger notification to Pharmacy)) predniSONE (Deltasone) 20 MG tablet Take 2 tablets (40 mg) by mouth Once per day for 5 days. 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, I gave him [...] Encounters Date Type Department Care Team Description 02/17/2025 11:40 AM EST Office Visit [facility] [address] [place] [address] Cough in adult patient (Primary Dx); Hypoxia; Essential hypertension 02/17/2025 Telephone [facility] [address] [place] [phone] Beau Stewart MD Nurse Triage 02/17/2025 Travel 02/11/2025 Orders Only GENERIC EXTERNAL DATA DEPARTMENT Provider, Generic External Data 02/11/2025 Refill [facility] [address] [place] [phone] She Jc, ISABEL Asthma, unspecified asthma severity, unspecified whether complicated, unspecified whether persistent 02/11/2025 Refill [facility] [address] [place] [address] Beau Stewart MD Asthma, unspecified asthma severity, unspecified whether complicated, unspecified whether persistent 02/10/2025 11:00 AM EST Office Visit [facility] [address] [place] [phone] Sarina Donato FNP SOB (shortness of breath) (Primary Dx); Sore throat (viral); Productive cough; Chest pain, non-cardiac 02/10/2025 Travel 02/09/2025 Telephone [facility] [address] [place] [phone] Beau Stewart MD Chart Prep 02/08/2025 Telephone [facility] [address] [place] [phone] Beau Stewart MD Nurse Triage 02/05/2025 Telephone [facility] [address] [place] [phone] Erlinda Swain MA dec recalls 01/27/2025 Telephone [facility] [address] [place] [phone] Beau Stewart MD Durable Medical Equipment 01/19/2025 Refill [facility] [address] [place] [phone] Beau Stewart MD 01/14/2025 Refill [facility] [address] [place] [phone] Beau Stewart MD Asthma, unspecified asthma severity, unspecified whether complicated, unspecified whether persistent 01/12/2025 Refill [facility] [address] [place] [phone] Beau Stewart MD Asthma, unspecified asthma severity, unspecified whether complicated, unspecified whether persistent 01/11/2025 Orders Only GENERIC EXTERNAL DATA DEPARTMENT Provider, Generic External Data 01/05/2025 Refill [facility] [address] [place] [phone] Beau Stewart MD Asthma, unspecified asthma severity, unspecified whether complicated, unspecified whether persistent; Seborrheic dermatitis 12/12/2024 Refill [facility] [address] [place] [phone] Beau Stewart MD Asthma, unspecified asthma severity, unspecified whether complicated, unspecified whether persistent 12/11/2024 Telephone [facility] [address] [place] [phone] Beau Stewart MD Med Refill 12/08/2024 Refill [facility] [address] [place] [phone] Beau Stewart MD Asthma, unspecified asthma severity, unspecified whether complicated, unspecified whether persistent 11/25/[address] [phone] Beau Stewart MD Asthma, unspecified asthma severity, unspecified whether complicated, unspecified whether persistent 11/19/2024 11:30 AM EDT Office Visit [address] [phone] Beau Stewart MD Heart failure with preserved ejection fraction, unspecified HF chronicity ([facility]) (Primary Dx); Type 2 diabetes mellitus with other specified complication, with long-term current use of insulin ([facility]); Anemia, unspecified type; Depression, unspecified depression type 11/19/2024 Orders Only GENERIC EXTERNAL DATA DEPARTMENT Provider, Generic External Data 11/19/2024 Travel 11/18/[address] [phone] Beau Stewart MD CHARTPREP 11/18/[address] [phone] Beau Stewart MD Durable Medical Equipment from [...] (297 lb) 02/17/2025 12:12 PM EST Height 167.6 cm (5' 6 ) 02/10/2025 10:47 AM EST Body Mass Index 47.94 02/10/2025 10:47 AM EST Plan of Treatment Upcoming Encounters Date Type Department Care Team (Late st Contact Info) Description 04/20/2025 1:00 PM EST Office Visit [facility] [address] [place], [place] [phone] Alvin, Florecita, OD [address] [place], [place] [phone] 04/26/2025 3:30 PM EST Office Visit [facility] [address] [place], [place] [phone] Name, MD Beau [address] [place], [place] [phone] Health Maintenance Due Date Last Done Comments [...] Screening 01/28/2025 01/29/2024 Eye Exam 03/05/2025 03/05/2024, 01/0 10/2024, 03/05/2024, Additional history exists Diabetes: Foot [...] Care Plan Weekly blood pressure task No NavaKarolina michelle Patient has chronic kidney disease Care Plan [...] blood pressure task No Colon Cole Farzaneh Weekly blood pressure task Care [...] chronic kidney disease No Dina Triana RN Procedures Procedure Name Priority Date/Time Associated Diagnosis Comments POCT INFLUENZA A (ID NOW RAPID MOLECULAR) Routine 02/17/2025 12:14 PM EST Cough in adult patient POCT INFLUENZA B (ID NOW RAPID MOLECULAR) Routine 02/17/2025 12:14 PM EST Cough in adult patient POCT RAPID COVID ANTIGEN Routine 02/17/2025 12:13 PM EST Cough in adult patient CBC WITH AUTO DIFFERENTIAL Routine 02/11/2025 12:26 [...] current use of insulin (CMS/HCC) POCT GLUCOSE (CPT-22533) Routine 11/19/2024 11:40 AM EDT Type 2 [...] Recently Relevant to Health Maintenance Results * Influenza B (ID NOW Rapid Molecular) (02/17/2025 12:14 PM EST) Only the most recent of2 resultswithin the time period is included. Pathologist [facility] Influenza B Negative Negative, Indeterminate [facility] Swab 02/17/2025 12:1 4 PM EST us Isaiah Ballard MD POINT OF CARE TEST ENTER/EDIT OR DERABLES Final Result Performing Organization Address City/[facility]/ZIP Co de Phone Number [facility] [address] [place] [phone] * Influenza A (ID NOW Rapid Molecular) (02/17/2025 12:14 PM EST) Only the most recent of2 resultswithin the time period is included. Pathologist [facility] Influenza A Negative Negative, Indeterminate [facility] Swab 02/17/2025 12:1 4 PM EST us Isaiah Ballard MD POINT OF CARE TEST ENTER/EDIT OR DERABLES Final Result Performing Organization Address City/[facility]/ZIP Co de Phone Number [facility] [address] [place] [phone] * POCT Rapid COVID Ag (02/17/2025 12:13 PM EST) Only the most recent of2 resultswithin the time period is included. Rapid COVID Ag Negative Swab 02/17/2025 12:1 3 PM EST Isaiah Ballard MD POINT OF CARE TEST ENTER/EDIT OR DERABLES Final Result * (ABNORMAL) CBC auto differential (02/11/2025 12:26 PM EST) White Blood Count 10.7 4.8 - 10.8 X10*3/uL [facility] Red Blood Count 3.98(L) 4.60 - 5.80 X10*6/uL [facility] Hemoglobin 12.1(L) 14.0 - 18.0 g/dl [facility] Hematocrit 36.0(L) 42.0 - 52.0 % [facility] Mean Corpuscular Volume 90.5 80.0 - 98.0 fL [facility] Mean Corpuscular Hemoglobin 30.4 27.0 - 33.0 pg [facility] Mean Corpuscular HGB Conc 33.6 31.0 - 36.0 g/dl [facility] Red Cell Distribution Width 15.9 11.0 - 16.0 % [facility] Platelet Count 316 160 - 400 X10*3/uL [facility] Mean Platelet Volume 8.9(L) 9.4 - 12.4 fL [facility] Neutrophils Percent Auto 71.4 45 - 73 % [facility] Imm Gran Pct Auto 0.3 0.0 - 0.4 % [facility] Lymphocytes Percent Auto 23.3 20 - 40 % [facility] Monocytes Percent Auto 4.8 2 - 11 % [facility] Eosinophils Percent Auto 0.0 0 - 4 % [facility] Basophils Percent Auto 0.2 0 - 2 % [facility] NRBC Pct Auto 0.0 0.0 - 0.2 /100WBC [facility] Neutrophils Absolute Auto 7.7 2.0 - 8.3 x10*3/uL [facility] Imm Gran Abs Auto 0.03 0.00 - 0.03 X10*3/uL [facility] Lymphocytes Absolute Auto 2.5 1.2 - 4.9 X10*3/uL [facility] Monocytes Absolute Auto 0.5 0.1 - 1.2 X10*3/uL [facility] Eosinophils Absolute Auto 0.0 0.0 - 0.4 X10*3/uL [facility] Basophils Absolute Auto 0.0 0.0 - 0.2 X10*3/uL [facility] NRBC Abs Auto 0.000 0.0 - 0.012 X10*3/uL [facility] 02/11/2025 12:2 6 PM EST 02/11/2025 12:26 PM EST us Generic External Data Provider LAB BLOOD ORDERAB LES Final Result Performing Organization Address City/State/[facility] Co de Phone Number [facility] [address] [place] [phone] * XR Chest 2 Views (02/10/2025 4:30 PM EST) Anatomical Region Laterality Modality Chest Radiographic Mira ging 02/10/2025 4:30 PM EST Narrative 02/10/2025 4:45 PM EST [address] [address] XRay Report Signed Patient: Manjit May MR#: [id number] 58 : 1970 Acct:[id number] Age/Sex: 55 / M ADM Date: 02/10/25 Loc: [facility] Attending Dr: Sarina GREEN Ordering Physician: Sarina Donato Date of Service: 02/10/25 Procedure(s): XR chest 2V Accession Number(s): [id number] cc: Pat,Beau FRANKS; Sarina Donato Reason for Exam: increasing [...] 02/10/25 1643 DD/ 1630 TD/TT: 02/10/25 1631 Shut Off Worker: NICOLAS Procedure Note Donotuseinterpreter, Image - 02/10/[address] [address] XRay Report Signed Patient: Manjit May AMR#: [id number] 58 : 1970Acct:[id number] Age/Sex: 55 / MADM Date: 02/10/25 [facility]: Sarina GREEN Ordering Physician: Sarina Donato Date of Service: 02/10/25 Procedure(s): XR chest 2V Accession Number(s): [id number] cc: Name,Beau FRANKS; Sarina Donato Reason for [...] 02/10/25 1643 DD/ 1630 TD/TT: 02/10/25 1631 Shut Off Worker: NICOLAS Sarina DAVENPORTP IMG XR PROCEDURES Final Result * POCT Rapid Strep A LUDWIG ID NOW (02/10/2025 10:54 AM EST) Pathologist [facility] Rapid Strep A Screen Negative Negative, None Detected QC Media Lot # [id number] Lot# Expiration Date Swab 02/10/2025 10:5 4 AM EST Sarina Donato WOLF HUNTER POINT OF CARE TEST ENTER/EDIT ORDERABLES Edited Result - Final * PSA,Total (01/11/2025 3:30 PM EST) [facility] Prostate Specific Antigen 0.32 <0.05 - 4.0 ng/mL [facility] Comment:PSA methodology: Hill Franco i ChemiluminescentMicroparticle Immunoassay (CMIA) 01/11/2025 3:30 PM EST 01/11/2025 3:30 PM EST Generic External Data Provider LAB BLOOD ORDERAB LES Final Result Performing Organization Address City/[facility]/ZIP Co de Phone Number [facility] [address] [place] [phone] * (ABNORMAL) Glucose, Whole Blood (11/19/2024 2:14 PM EDT) [facility] Glucose, Whole Blood 267(H) 60 - 115 mg/dL [facility] Comment:METER #: [id number] Testing performed in the Endocrinology Department [address] , [address], [facility]. 11/19/2024 2:14 PM EDT 11/19/2024 2:20 PM EDT Generic External Data Provider LAB BLOOD ORDERAB LES Final Result Performing Organization Address City/[facility]/ZIP Co de Phone Number [facility] [address] [place] [phone] * (ABNORMAL) POCT Hgb A1c (11/19/2024 11:42 AM EDT) Hemoglobin A1C 6.7(A) 4.0 - 5.7 % QC Media Lot # [id number] Lot# Expiration Date [id number] Blood 11/19/2024 11:4 2 AM EDT Beaumarybeth Stewart MD POINT OF CARE TEST ENTER/EDIT OR DERABLES Final Result * (ABNORMAL) POCT Glucose (11/19/2024 11:40 AM EDT) Glucose Blood, POC 204(A) 60 - 200 mg/dL QC Media Lot # [id number] Lot# Expiration Date 31,126 Blood Capillary blood specimen / Unknown 11/19/2024 11:40 AM EDT Beaumarybeth Stewart MD POINT OF CARE TEST ENTER/EDIT OR DERABLES Final Result * Protein Creatinine Ratio, Urine (10/14/2024 1:50 PM EDT) Creatinine, Urine 37.57 mg/dL [facility] Protein, Total, Random Urine <7 <12 mg/dL [facility] Protein/Creatin ine Ratio, Ur TNP <0.2 [facility] Comment:Unable to calculate urine protein creatinine ratio due tolow creatinine or protein result. 10/14/2024 1:50 PM EDT 10/14/2024 2:23 PM EDT Generic External Data Provider LAB URINE ORDERAB LES Final Result [facility] [address] [place] [phone] * (ABNORMAL) Lipid Panel, Standard (07/07/2024 3:17 PM EDT) Triglycerides 195(H) <150 mg/dL [facility] Comment:Desirable Triglyceri de: less than 150 mg/dLBorderline High Triglyceride 150-199 mg/dLHigh Triglyceride: 200-499 mg/dLVery High Triglyceride: greater than or equal to 5OO mg/dL Cholesterol 128 <200 mg/dL [facility] Comment:Desirable Cholestero l: less than 200 mg/dLBorderline High Cholesterol: 200-239 mg/dLHigh Cholesterol: greater than 239 mg/dL LDL Cholesterol Calculated 53 <100 mg/dL [facility] Comment:Desirable LDL: less than 100 mg/dLNear Optimal/Above Optimal LDL: 110- 129 mg/dLBorderline High LDL: 130-159 mg/dLHigh LDL: 160-189 mg/dLVery High LDL: greater than or equal to 190 mg/dL HDL Cholesterol 36(L) >40 mg/dL [facility] Comment:Desirable HDL: great er than 40 mg/dL Note: This HDL assay may give artificially low results in patients with liver disease. 07/07/2024 3:17 PM EDT 07/07/2024 3:17 PM EDT us Generic External Data Provider LAB BLOOD ORDERAB LES Final Result Performing Organization Address [facility]/ZIP Co de Phone Number [facility] [address] [place] [phone] * Hepatitis C Antibody with Reflex to HCV, RNA, Quantitative, Real-Time PCR (11/06/2023 3:26 PM EDT) Hepatitis C Antibody Nonreactive Nonreactive [facility] Comment:Antibodies to HCV no t detected; does not exclude early acuteHCV infection. Blood Venous blood specimen / Unknown 11/06/2023 3:26 PM EDT 11/06/2023 3:58 PM EDT Beau Stewart MD LAB BLOOD ORDERABLES Final Resul t Performing Organization Address City/[facility]/ZIP Co de Phone Number [facility] [address] [place] [phone] * Hm Colonoscopy (06/09/2020 2:16 PM EDT) Colonoscopy Normal Normal Narrative Traci, Radha - 06/09/2020 2:16 PM EDT Recommended 10 year follow up ([facility] Historical Provider HEALTH MAINTENANCE Final Result from [...] 02/17/2025 Patient has chronic kidney disease 02/17/2025 Insurance [facility] C3 [facility]ENT[facility] MEDICAID STAND ADULT Care Teams Customer Support Analyst Relationship Specialty Start Date End Date Name, MD Beau [address] [place] [phone] PCP - General Family Medicine 06/01/15
== END 2025-02-17 13:02 | disposition home or self-care (01) ==
LOC: HO.HHCX 13:01
PROVIDERS: Visit Provider Emergency Medicine
DX: R09.02 Hypoxemia (principal); R05.3 Chronic cough
CPT/HCPCS: 71046

== ENCOUNTER → 2025-02-17 13:02 | Outpatient (BNV) | payer MEDICAID, SELFPAY | PROVIDERS: Visit Provider Radiology Diagnostic Radiology | DX: R05.3 Chronic cough (principal) | CPT/HCPCS: 71046 ==

== ENCOUNTER 2025-02-23 11:34 | Outpatient (REF) | payer MEDICAID, SELFPAY ==
--- OUTSIDE RECORDS SUMMARY | 2025-02-23 11:00 | XMS_ITS | Encounter Summary ---
Author Organization [employer] Address [address] [place] [address] 7t [place] [address] Care Team Providers Care Escrow Assistant Name Role Phone Name, Beau FRANKS Primary Care Provider [phone] Reason for Visit * Reason Comments Dental Pain Pt came in as an anisha rgency with pain for the pass week on his lower right side. Pt has a swolloen face. Panorex taken Encounter Details Date Type Department Care Team (Late st Contact Info) Description 02/23/2025 11:00 AM EST Office Visit [facility] [address] [place] [address] Do-FosterHayleeBetsy, DDS [address] [place] [address] Rampant dental caries (Primary Dx); Dental abscess Social History Tobacco Use Types Packs/Day Years Used Date Smoking Tobacco: Never Passive Smoke Exposure: Never Smokeless Tobacco: Never Tobacco Cessation:Counseling Given: No Alcohol Use Standard Drinks/Week Comments Never 0 (1 standard drink = 0.6 oz pur e alcohol) Alcohol Answer Date Recorded How often do you have a drink containing alcohol ? 0 02/23/2025 How many drinks containing a lcohol do you have on a typical day when you are drinking? 0 02/23/2025 How often do you have six or more drinks on one occasion? 0 02/23/2025 Depression Answer Date Recorded Patient Health Questionnaire-9 [...] Sign Reading Time Taken Comments Blood Pressure 136/76 02/23/2025 11:08 AM EST Pulse 70 02/23/2025 11:08 AM EST Temperature - - Respiratory Rate - - Oxygen Saturation - - Inhaled Oxygen Concentration - - Weight - - Height - - Body Mass Index - - documented in this encounter Functional Status * Audit Alcohol Screening Question Answer Date of Assessment Author How many times in the past y ear have you had 5 or more (for men) or 4 or more (for women) drinks in a day? 0 02/23/2025 11:04 AM Ramakrishna Hilario Score 0 02/23/2025 11:04 AM Krupa Hilario How often do you have a drin k containing alcohol? 0 02/23/2025 11:04 AM Krupa Hilario How often do you have six or more drinks on one occasion? 0 02/23/2025 11:04 AM LACHELLE MauriceMargaritaKrupa Audit-C Score 0 02/23/2025 11:04 AM Krupa Baez documented as of this encounter Progress Notes * Betsy Madden DDS - 02/23/2025 11:00 AM EST Dental procedures in this visit D0140 - LIMITED ORAL EVALUATION - PROBLEM FOCUSED (Completed) Service provider: eBtsy Madden DDS Billing provider: Betsy Madden DDS D0330 - PANORAMIC RADIOGRAPHIC IMAGE (Completed) Service provider: Betsy Madden DDS Billing provider: Betsy Madden DDS D9450 - CASE PRESENTATION, DETAILED AND EXTENSIVE TREATMENT PLANNING (Completed) Service provider: Betsy Madden DDS Billing provider: Betsy Madden DDS Patient ID: Manjit May is a 55 y.o. male. Time Out: No data recorded Location: [facility] Tooth: LR Procedure: Emergency Verified the above with patient, clerical administrative assistant, and provider. Confirmed via patient's chart, intraorally and by radiographs. Slag Production Worker: not applicable Chief Complaint Patient presents with Dental Pain Pt came in as an emergency with pain for the pass week on his lower right side. Pt has a swolloen face. Panorex taken Medical Hx: Vitals: Blood pressure 136/76, pulse 70. Medical History[1] Medications: Encounter Medications[2] Subjective: Pain: moderate, severe Duration: 5 days Objective: Tooth: LR side Radiographs Taken: Panoramic Radiographic Findings: rampant caries on all teeth, non restorable, caries into the pulp, generalized bone loss, poor OH, calculus, inflammation, halitosis, B abscess observed. Intra oral and extra oral inflammation. All remaining teeth need extraction. Swelling: Extraoral swelling, Tenderness, and Intraoral swelling Diagnosis: Rampant caries; abscess teeth; dental pain Assessment/Plan: Referred for FM ext CDs Prescriptions: Clindamycin 150 mg/qid/7 days 28 caps Ibuprofen 600 mg/tid/prn 15 tabs Tylenol 650 mg/tid/prn 15 tabs Peridex 15 ml/tid/prn 473 ml bottle Pt tolerated procedure well, all questions answered. Dismissed in good condition. NV: Ext Manager Competitive Intelligence: Krupa Maurice Dentist: Betsy Madden DDS [1] Past Medical History: Diagnosis Date Arthritis Asthma Diabetes mellitus (HCC) Hypertension Sleep apnea, obstructive [2] Outpatient Encounter Medications as of 02/23/2025 Medication Sig Dispense Refill albuterol (2.5 MG/3ML) 0.083% nebulizer solution USE 3 ML VIA NEBULIZER EVERY MORNING AND EVERY AFTERNOON AND EVERY NIGHT AT BEDTIME 90 mL 1 Antacid Calcium 500 MG chewable tablet CHEW 1 TABLET BY MOUTH IN THE MORNING, AT NOON, IN THE EVENING, AND AT BEDTIME NEEDED FOR INDIGESTION OR HEARTBURN 90 tablet 11 benralizumab (Fasenra Pen) 30 MG/ML injection Inject 30 mg under the skin every 8 (eight) weeks. bumetanide (Bumex) 1 MG tablet Take 1 mg by mouth every other day. chlorhexidine (Peridex) 0.12 % solution Swish 15 mL morning and night for 1 minute. Spit, do not swallow. Do not eat or drink for 30 minutes following use. 473 mL 0 Continuous Blood Gluc Sensor (FreeStyle Monty 2 Sensor) misc DIRECTED EVERY 14 DAYS famotidine (Pepcid) 20 MG tablet Take 1 tablet (20 mg) by mouth 2 times daily. 60 tablet 11 ferrous sulfate (Fe Tabs) 325 (65 Fe) MG EC tablet Take 1 tablet (325 mg) by mouth with breakfast. Do not crush, chew, or split. 30 tablet 11 Fluticasone Furoate-Vilanterol (Breo Ellipta) 200-25 MCG/ACT aerosol powder Inhale. gabapentin (Neurontin) 300 MG capsule TAKE 1 [...] use with your albuterol nebules 180 mL 2 ketoconazole (NIZOral) 2 % shampoo APPLY TOPICALLY [...] BY MOUTH AT BEDTIME 90 tablet 1 predniSONE (Deltasone) 10 MG tablet Take 4 tablets (40 mg) by mouth Once per day for 2 days, THEN 3tablets (30 mg) Once per day for 2 days, THEN 2 tablets (20 mg) Once per day for 2 days, THEN 1 tablet (10 mg) Once per day for 2 days. 20 tablet 0 sodium chloride ([place] Nasal [place]) 0.65 % nasal spray Administer 1 spray [...] TO 6 HOURS NEEDED 18 g 1 acetaminophen (Tylenol 8 Hour) 650 MG ER tablet Take 1 tablet (650 mg) by mouth every 8 (eight) hours if needed for moderate pain for up to 10 days. Do not crush, chew, or split. 15 tablet 0 acetaminophen (Tylenol) 500 MG tablet Take 1 tablet (500 mg) by mouth every 6 (six) hours if neededfor mild pain for up to 20 doses. (Patient not taking: Reported on 02/23/2025) 20 tablet 0 B-D ULTRAFINE III SHORT PEN 31G X 8 MM misc USE TO INJECT FOUR TIMES DAILY (Patient not taking: Reported on 02/23/2025) chlorhexidine (Peridex) 0.12 % solution Use 15 mL in the mouth or throat if needed (for mouthwash 15 ml for 30 seconds, swish and spit) for up to 14 days. 473 mL 0 clindamycin (Cleocin) 150 MG capsule Take 1 capsule (150 mg) by mouth 4 times daily for 7 days. 28 capsule 0 clindamycin (Cleocin) 300 MG capsule Take 2 tabs (600mg) 1 hour prior to dental procedure (Patient not taking: Reported on 02/23/2025) 2 capsule 3 Diclofenac Sodium 1 % gel APPLY 2 GRAMS TOPICALLY TO THE AFFECTED AREA FOUR TIMES DAILY NEEDED FOR BACK PAIN (Patient not taking: Reported on 02/23/2025) 100 g 1 ibuprofen 600 MG tablet Take 1 tablet (600 mg) by mouth every 6 (six) hours if needed for mild painfor up to 10 days. 15 tablet 0 [DISCONTINUED] Arnuity Ellipta 200 MCG/ACT inhaler INHALE 1 PUFF BY MOUTH DAILY. RINSE MOUTH WITH WATER AFTER USE FOR AFTERTASTE AND INCIDENCE OF CANDIDIASIS. DO NOT SWALLOW 30 each 11 [DISCONTINUED] ipratropium-albuterol (Duo-Neb) 0.5-2.5 mg/3 mL nebulizer solution Take 3 mL by nebulization every 6 (six) hours if needed for wheezing or shortness of breath. Do not use with your albuterol nebules 180 mL 0 No facility-administered encounter medications on file as of 02/23/2025. documented in this encounter Plan of Treatment Upcoming Encounters Date Type Department Care Team (Late st Contact Info) Description 03/24/2025 1:00 PM EST Office Visit [facility] [address] [place] [address] Julita Guillory [address] [place] [address] [phone] 04/20/2025 1:00 PM EST Office Visit [facility] [address] [place] [address] Alvin, Florecita, OD [address] [place] [address] 04/26/2025 3:30 PM EST Office Visit [facility] [address] [place] [address] Name, MD Beau [address] [place] [address] Scheduled Orders Name Type Priority Associated Diagnoses Orde r Schedule 9 9 EXTRACTION, ERUPTED TOOTH OR EXPOSED ROOT (ELEVATION/FORCEPS REMOVAL) Dental Routine [address] arting 02/23/2025 9 9 EXTRACTION, ERUPTED TOOTH OR EXPOSED ROOT (ELEVATION/FORCEPS REMOVAL) Dental Routine [address] arting 02/23/2025 8 8 EXTRACTION, ERUPTED TOOTH OR EXPOSED ROOT (ELEVATION/FORCEPS REMOVAL) Dental Routine [address] arting 02/23/2025 6 6 EXTRACTION, ERUPTED TOOTH OR EXPOSED ROOT (ELEVATION/FORCEPS REMOVAL) Dental Routine [address] arting 02/23/2025 4 4 EXTRACTION, ERUPTED TOOTH OR EXPOSED ROOT (ELEVATION/FORCEPS REMOVAL) Dental Routine [address] arting 02/23/2025 15 15 EXTRACTION, ERUPTED TOOTH OR EXPOSED ROOT (ELEVATION/FORCEPS REMOVAL) Dental Routine [address] arting 02/23/2025 10 10 EXTRACTION, ERUPTED TOOTH OR EXPOSED ROOT (ELEVATION/FORCEPS REMOVAL) Dental Routine [address] arting 02/23/2025 documented as of this encounter Goals Goal [...] Plan Patient has chronic kidney disease No NavaKarolina michelle Weekly blood pressure task Care Plan Weekly [...] chronic kidney disease No Colon Cole Farzaneh Weekly blood pressure [...] Weekly blood pressure task No She Jc, ISABEL Patient has chronic kidney disease Care [...] chronic kidney disease No Dina Triana, ISABEL Weekly blood pressure task Care Plan Weekly blood pressure task No Krupa Maurice Weekly blood pressure task Care Plan Weekly blood pressure task No Krupa Maurice Patient has chronic kidney disease Care Plan Patient has chronic kidney disease No Krupa Maurice Patient has chronic kidney disease Care Plan Patient has chronic kidney disease No Krupa Maurice documented as of this encounter Procedures Procedure Name Priority Date/Time Associated Diagnosis Comments PANORAMIC RADIOGRAPHIC IMAGE Routine 02/23/2025 11:00 AM EST Rampant dental caries Dental abscess LIMITED ORAL EVALUATION - PROBLEM FOCUSED Routine 02/23/2025 11:00 AM EST Rampant dental caries Dental abscess CASE PRESENTATION, DETAILED AND EXTENSIVE TREATMENT PLANNING Routine 02/23/2025 11:00 AM EST Rampant dental caries Dental abscess documented in this encounter Visit Diagnoses Diagnosis Rampant dental caries- Primary Dental abscess Periapical abscess without sinus documented in this encounter Additional Health Concerns [...] kidney disease 02/17/2025 Weekly blood pressure task 02/23/2025 Weekly blood pressure task 02/23/2025 Patient has chronic kidney disease 02/23/2025 Patient has chronic kidney disease 02/23/2025 Assessment Noted Time PHQ-9 Depression Total Score: 25 025 11:48 AM EDT documented as of this encounter Care Teams Escrow Assistant Relationship Specialty Start Date End Date Name, MD Beau [address] [place] [address] PCP - General Family Medicine 06/01/15 documented as of this encounter
[2025-02-23 13:54] LABS: MANUAL DIFF FLAG NO
[2025-02-23 14:19] LABS: Hematocrit 41.5 % (42.0-52.0); Hemoglobin 14.0 g/dl (14.0-18.0); Mean Corpuscular HGB Conc 33.7 g/dl (31.0-36.0); Mean Corpuscular Hemoglobin 30.2 pg (27.0-33.0); Mean Corpuscular Volume 89.4 fL (80.0-98.0); Red Blood Count 4.64 X10*6/uL (4.60-5.80); White Blood Count 13.0 X10*3/uL (4.8-10.8)
[2025-02-23 14:20] LABS: NRBC Abs Auto 0.000 X10*3/uL (0.0-0.012); NRBC Pct Auto 0.0 /100WBC (0.0-0.2); Platelet Count 309 X10*3/uL (160-400)
[2025-02-23 15:11] LABS: Total Protein Urine Random < 7 mg/dL (<12)
--- OUTSIDE RECORDS SUMMARY | 2025-02-23 15:37 | XMS_ITS | Encounter Summary ---
Author Organization [employer] Address [address] [place] [address] 7 [place] [address] Care Team Providers Care Wind Turbine Blade Repair Technician Name Role Phone Name, Beau FRANKS Primary Care Provider Bambi Jauregui Unavailable Mechelle Dumont RN Unavailable Unavailable Encounter Details Date Type Department Care Team (Late st Contact Info) Description 03/07/2022 Orders Only [facility] [address] [place] [address] [phone] Ekaterina Pappas LPN Social History Tobacco Use [...] Description 03/24/2025 1:00 PM EST Office Visit [facility] [address] [place] [address] Julita Guillory [address] [place] [address] 04/20/2025 1:00 PM EST Office Visit [facility] [address] [place] [address] Florecita Esquivel, OD [address] [place] [address] 04/26/2025 3:30 PM EST Office Visit [facility] [address] [place] [address] Name, MD Beau [address] [place] [address] documented as of this encounter Visit Diagnoses Not on filedocumented in this encounter Care Teams Wind Turbine Blade Repair Technician Relationship Specialty Start Date End Date Name, MD Beau [address] [place] [address] PCP - General Family Medicine 06/01/15 Bambi Jauregui Community Health Worker 06/27/2309/14 Mechelle Dumont RN Supervisor Corduroy Cutting 06/27/23 09/15/23 documented as of this encounter
--- OUTSIDE RECORDS SUMMARY | 2025-02-23 15:37 | XMS_ITS | Encounter Summary ---
Author Organization [employer] Address [address] [place] [address] [address] [place] [address] Care Team Providers Care Mine Inspector Federal Name Role Phone Name, Beau FRANKS Primary Care Provider [phone] Reason for Visit * Reason Comments Med Refill Encounter Details Date Type Department Care Team ([facility] st Contact Info) Description 04/07/2024 Refill [facility] [address] [place], [place] [phone] Laura Russell MD [address] [place], [place] [phone] Asthma, unspecified asthma severity, unspecified whether complicated, [...] Description 03/24/2025 1:00 PM EST Office Visit [facility] [address] [place] [address] Julita Guillory [address] [place] [address] 04/20/2025 1:00 PM EST Office Visit [facility] [address] [place] [address] Alvin, Florecita, OD [address] [place] [address] 04/26/2025 3:30 PM EST Office Visit [facility] [address] [place] [address] Name, MD Beau [address] [place] [address] documented as of this encounter Visit Diagnoses Diagnosis Asthma, unspecified asthma severity, unspecified whether complicated, unspecified whether persistent documented in this encounter Additional Health Concerns Assessment Noted Time PHQ-9 Depression Total Score: 24 024 3:46 PM EST documented as of this encounter Care Teams Mine Inspector Federal Relationship Specialty Start Date End Date Name, MD Beau [address] [place] [address] PCP - General Family Medicine 06/01/15 documented as of this encounter
--- OUTSIDE RECORDS SUMMARY | 2025-02-23 15:37 | XMS_ITS | Encounter Summary ---
Author Organization [employer] Address [address] [place] [address] [address]t [place] [address] Care Team Providers Care Navy Fighter Pilot Name Role Phone Name, Beau FRANKS Primary Care Provider [phone] Reason for Visit * Reason Comments Med Refill Encounter Details Date Type Department Care Team ([facility] st Contact Info) Description 10/04/2023 Refill [facility] [address] [place], [place] [phone] Name, MD Beau [address] [place] [address] Social History Tobacco Use Types Packs/Day Years [...] Description 03/24/2025 1:00 PM EST Office Visit [facility] [address] [place] [address] Julita Guillory [address] [place] [address] 04/20/2025 1:00 PM EST Office Visit [facility] [address] [place] [address] Alvin, Florecita, OD [address] [place] [address] 04/26/2025 3:30 PM EST Office Visit [facility] [address] [place] [address] Name, MD Beau [address] [place] [phone] documented as of this encounter Visit Diagnoses Not on filedocumented in this encounter Additional Health Concerns Assessment Noted Time PHQ-9 Depression Total Score: 19 023 3:46 PM EDT documented as of this encounter Care Teams Navy Fighter Pilot Relationship Specialty Start Date End Date Name, MD Beau [address] [place] [id number] PCP - General Family Medicine 06/01/15 documented as of this encounter
--- OUTSIDE RECORDS SUMMARY | 2025-02-23 15:37 | XMS_ITS | Encounter Summary ---
Author Organization [employer] Address [address] [place] [address] 7 [place] [address] Care Team Providers Care Instructor Weaving Name Role Phone Name, Beau FRANKS Primary Care Provider [phone] Bambi Jauregui Unavailable Mechelle Dumont RN Unavailable Unavailable Reason for Visit * Reason Comments Med Refill Encounter Details Date Type Department Care Team (Late st Contact Info) Description 06/11/2022 Refill [facility] MEDICINE 230 [place] [address] Name, MD Beau 230 [place] [address] Iron deficiency Social History Tobacco Use Types [...] Description 03/24/2025 1:00 PM EST Office Visit [facility] CHC ADULT DENTAL [address] [place] [address] Julita Guillory 230 [place] [address] 04/20/2025 1:00 PM EST Office Visit [facility] OPTOMETRY 267 [place] [address] Florecita Esquivel, OD 230 [place] [address] 04/26/2025 3:30 PM EST Office Visit [facility] MEDICINE 230 [facility] [place] [address] Name, MD Beau Refugio [facility] [place] [address] documented as of this encounter Visit Diagnoses Diagnosis Iron deficiency Disorders of iron metabolism documented in this encounter Care Teams Instructor Weaving Relationship Specialty Start Date End Date Name, MD Beau Refugio [facility] [place] [address] PCP - General Family Medicine 06/01/15 Bambi Jauregui Community Health Worker 06/27/2309/14 Mechelle Dumont RN Bio Medical Technician 06/27/23 09/15/23 documented as of this encounter
--- OUTSIDE RECORDS SUMMARY | 2025-02-23 15:37 | XMS_ITS | Encounter Summary ---
Author Organization [employer] Address [address] [place] [address] 7 [place] [address] Care Team Providers Care Research Engineer Name Role Phone Name, Beau FRANKS Primary Care Provider [phone] Bambi Jauregui Unavailable Mechelle Dumont RN Unavailable Unavailable Reason for Visit * Reason Comments Med Refill Encounter Details Date Type Department Care Team (Late st Contact Info) Description 05/28/2022 Refill [facility] MEDICINE 230 [place] [address] Name, MD Beau 230 [place] [address] Asthma, unspecified asthma severity, unspecified whether complicated, [...] Department Care Team (Late Contact Info) Description 03/24/2025 1:00 PM EST Office Visit [facility] CHC ADULT DENTAL 505 [place] [address] Julita Guillory 230 [place] [address] 04/20/2025 1:00 PM EST Office Visit [facility] OPTOMETRY [address] [place], [place] [address] Alvin Florecita, OD 230 [place] [address] 04/26/2025 3:30 PM EST Office Visit [facility] MEDICINE [address] [place] [address] Name, MD Beau 230 [place] [address] documented as of this encounter Visit Diagnoses Diagnosis Asthma, unspecified asthma severity, unspecified whether complicated, unspecified whether persistent documented in this encounter Care Teams Research Engineer Relationship Specialty Start Date End Date Name, MD Beau [address] [place] [address] [phone] PCP - General Family Medicine 06/01/15 Bambi Jauregui Community Health Worker 06/27/2309/14 Mechelle Dumont, ISABEL Food Service Representative 06/27/23 09/15/23 documented as of this encounter
--- OUTSIDE RECORDS SUMMARY | 2025-02-23 15:37 | XMS_ITS | Encounter Summary ---
Author Organization [employer] Address [address] [place] [address] 7 [place] [address] Care Team Providers Care Lieutenant Colonel Name Role Phone Name, Beau FRANKS Primary Care Provider Bambi Jauregui Unavailable Mechelle Dumont RN Unavailable Unavailable Encounter Details Date Type Department Care Team (Late st Contact Info) Description 03/02/2022 Orders Only [facility] MEDICINE [address] [place] [address] [phone] Lelia Moeller RN Social History Tobacco Use [...] Description 03/24/2025 1:00 PM EST Office Visit [facility] CHC ADULT DENTAL [address] [place] [address] Julita Guillory 230 [place] [address] 04/20/2025 1:00 PM EST Office Visit [facility] OPTOMETRY 267 [place] [address] Florecita Esquivel, OD 230 [place] [address] 04/26/2025 3:30 PM EST Office Visit [facility] MEDICINE 230 [place] [address] Name, MD Beau 230 [place] [address] documented as of this encounter Visit Diagnoses Not on filedocumented in this encounter Care Teams Lieutenant Colonel Relationship Specialty Start Date End Date Name, MD Beau 230 [place] [address] PCP - General Family Medicine 06/01/15 Bambi Jauregui Community Health Worker 06/27/2309/14 Mechelle Dumont, ISABEL Pastry Assistant 06/27/23 09/15/23 documented as of this encounter
--- OUTSIDE RECORDS SUMMARY | 2025-02-23 15:37 | XMS_ITS | Encounter Summary ---
Author Organization [employer] Address [address] [place] [address] 7 [place] [address] Care Team Providers Care Drafter Seismograph Name Role Phone Name, Beau FRANKS Primary Care Provider [phone] Bambi Jauregui Unavailable Mechelle Dumont RN Unavailable Unavailable Reason for Visit * Reason Comments Med Refill Encounter Details Date Type Department Care Team ([facility] st Contact Info) Description 06/10/2023 Refill [facility] MEDICINE 230 [place] [address] Name, MD Beau 230 [place] [address] Asthma, unspecified asthma severity, unspecified whether complicated, [...] Description 03/24/2025 1:00 PM EST Office Visit [facility] CHC ADULT DENTAL [address] [place] [address] Julita Guillory 230 [place] [address] 04/20/2025 1:00 PM EST Office Visit [facility] OPTOMETRY 267 [place] [address] Alvin, Florecita, OD [address] [place] [address] 04/26/2025 3:30 PM EST Office Visit [facility] MEDICINE 230 [place] [address] Beau Stewart MD [address] [place] [address] documented as of this encounter Visit Diagnoses Diagnosis Asthma, unspecified asthma severity, unspecified whether complicated, unspecified whether persistent documented in this encounter Additional Health Concerns Assessment Noted Time PHQ-9 Depression Total Score: 19 023 3:46 PM EDT documented as of this encounter Care Teams Drafter Seismograph Relationship Specialty Start Date End Date Beau Stewart MD [address] [place] [address] PCP - General Family Medicine 06/01/15 Bambi Jauregui Community Health Worker 06/27/2309/14 Mechelle Dumont, ISABLE Senior Vice President 06/27/23 09/15/23 documented as of this encounter
--- OUTSIDE RECORDS SUMMARY | 2025-02-23 15:37 | XMS_ITS | Encounter Summary ---
Author Organization [employer] Address [address] [place] [address] 7t [place] [address] Care Team Providers Care Honing Machine Operator Tool Name Role Phone Name, Beau FRANKS Primary Care Provider [phone] Encounter Details Date Type Department Care Team (Late st Contact Info) Description 02/23/2025 Orders Only GENERIC EXTERNAL DATA DEPARTMENT Provider, [...] Description 03/24/2025 1:00 PM EST Office Visit [facility] CHC ADULT DENTAL [address] [place] [address] PastoraJulita quijano 230 [place] [address] 04/20/2025 1:00 PM EST Office Visit [facility] OPTOMETRY [address] [place] [address] Alvin, Florecita, OD 230 [place] [address] 04/26/2025 3:30 PM EST Office Visit [facility] MEDICINE 230 [place] [address] Name, MD Beau 230 [place] [address] documented as of this encounter Goals Goal [...] Weekly blood pressure task No NavaKarolina michelle Weekly blood pressure task Care Plan Weekly blood pressure task No NavaCollin michelleKarolina Patient has chronic kidney [...] Plan Patient has chronic kidney disease No Josafat, Krupa documented as of this encounter Procedures Procedure Name Priority Date/Time Associated Diagnosis Comments GLUCOSE, WHOLE BLOOD Routine 02/23/2025 1:48 PM EST PROTEIN CREATININE RATIO, URINE Routine 02/23/2025 11:46 AM EST CBC Routine 02/23/2025 11:46 AM EST documented in this encounter Results * (ABNORMAL) Glucose, Whole Blood (02/23/2025 1:48 PM EST) Glucose, Whole Blood 167(H) 60 - 115 mg/dL [facility] Comment:METER #: [id number] Testing performed in the Endocrinology Department [address] , [address], [facility]. 02/23/2025 1:48 PM EST 02/23/2025 1:52 PM EST Generic External Data Provider LAB BLOOD ORDERAB LES Final Result Performing Organization Address [facility]/ZIP Co de Phone Number [facility] [address] [place] [phone] * Protein Creatinine Ratio, Urine (02/23/2025 11:46 AM EST) Creatinine, Urine 30.23 mg/dL [facility] Protein, Total, Random Urine <7 <12 mg/dL [facility] Protein/Creatin ine Ratio, Ur TNP <0.2 [facility] Comment:Unable to calculate urine protein creatinine ratio due tolow creatinine or protein result. 02/23/2025 11:4 6 AM EST 02/23/2025 2:03 PM EST us Generic External Data Provider LAB URINE ORDERAB LES Final Result Performing Organization Address City/[facility]/ZIP Co de Phone Number [facility] [address] [place] [phone] [phone] * (ABNORMAL) CBC (02/23/2025 11:46 AM EST) White Blood Count 13.0(H) 4.8 - 10.8 X10*3/uL [facility] Red Blood Count 4.64 4.60 - 5.80 X10*6/uL [facility] Hemoglobin 14.0 14.0 - 18.0 g/dl [facility] Hematocrit 41.5(L) 42.0 - 52.0 % [facility] Mean Corpuscular Volume 89.4 80.0 - 98.0 fL [facility] Mean Corpuscular Hemoglobin 30.2 27.0 - 33.0 pg [facility] Mean Corpuscular HGB Conc 33.7 31.0 - 36.0 g/dl [facility] Red Cell Distribution Width 15.1 11.0 - 16.0 % [facility] Platelet Count 309 160 - 400 X10*3/uL [facility] Mean Platelet Volume 10.0 9.4 - 12.4 fL [facility] NRBC Pct Auto 0.0 0.0 - 0.2 /100WBC [facility] NRBC Abs Auto 0.000 0.0 - 0.012 X10*3/uL [facility] 02/23/2025 11:4 6 AM EST 02/23/2025 1:50 PM EST us Generic External Data Provider LAB BLOOD ORDERAB LES Final Result Performing Organization Address City/State/[facility] Co de Phone Number [facility] [address] [place] [phone] documented in this encounter Visit Diagnoses [...] documented as of this encounter Care Teams Honing Machine Operator Tool Relationship Specialty Start Date End Date Name, MD Beau [address] [place] [address] PCP - General Family Medicine 06/01/15 documented as of this encounter
--- OUTSIDE RECORDS SUMMARY | 2025-02-23 15:37 | XMS_ITS | Encounter Summary ---
Author Organization [employer] Address [address] [place] [address] 7 [place] [address] Care Team Providers Care Bus Aide Name Role Phone Name, Beau FRANKS Primary Care Provider [phone] Reason for Visit * Reason Onset Date Comments Med Refill 12/11/2024 Encounter Details Date Type Department Care Team ([facility] st Contact Info) Description 12/11/2024 Telephone [facility] MEDICINE 230 [place], [place] [phone] Name, MD Beau 230 [place] [address] Med Refill Social History Tobacco Use Types [...] Base) MCG/ACT inhaler To be sent to: [id number] [place], [place] - [address] [facility] Requesting more refills on script documented in this encounter Plan of Treatment Upcoming Encounters Date Type Department Care Team (Late st Contact Info) Description 03/24/2025 1:00 PM EST Office Visit [facility] CHC ADULT DENTAL [address] [place] [address] Julita Guillory 230 [place] [address] 04/20/2025 1:00 PM EST Office Visit [facility] OPTOMETRY [address] [place] [address] AlvinFlorecita holloway, OD 230 [place] [address] 04/26/2025 3:30 PM EST Office Visit [facility] MEDICINE 230 [place] [address] Name, [place] [address] documented as of this encounter Visit Diagnoses Not on filedocumented in this encounter Additional Health Concerns Assessment Noted Time PHQ-9 Depression Total Score: 25 025 11:48 AM EDT documented as of this encounter Care Teams Bus Aide Relationship Specialty Start Date End Date Name, [place] [address] PCP - General Family Medicine 06/01/15 documented as of this encounter
--- OUTSIDE RECORDS SUMMARY | 2025-02-23 15:37 | XMS_ITS | Encounter Summary ---
Author Organization [email or web address] Address [address] [place] [address] 7 [place] [address] Care Team Providers Care Kaiako Kura Kaupapa Maori Name Role Phone Name, Beau FRANKS Primary Care Provider [phone] Bambi Jauregui Unavailable Mechelle Dumont RN Unavailable Unavailable Reason for Visit * Reason Onset Date Comments Med Refill 08/21/2022 Encounter Details Date Type Department Care Team ([facility] st Contact Info) Description 08/21/2022 Telephone [facility] MEDICINE 230 [place] [address] Name, MD Beau 230 [place] [address] Med Refill Social History Tobacco Use Types [...] Description 03/24/2025 1:00 PM EST Office Visit [facility] CHC ADULT DENTAL [address] [place] [address] Julita Guillory 230 [place] [address] 04/20/2025 1:00 PM EST Office Visit [facility] OPTOMETRY 267 [place] [address] Alvin, Florecita, OD 230 [place] [address] 04/26/2025 3:30 PM EST Office Visit [facility] MEDICINE 230 [place] [address] Name, MD Beau [address] [place] [address] documented as of this encounter Visit Diagnoses Not on filedocumented in this encounter Care Teams Kaiako Kura Kaup[place] Maori Relationship Specialty Start Date End Date Name, MD Beau [address] [place] [address] PCP - General Family Medicine 06/01/15 Bambi Jauregui Community Health Worker 06/27/2309/14 Mechelle Dumont, RN Cardiology Rn 06/27/23 09/15/23 documented as of this encounter
--- OUTSIDE RECORDS SUMMARY | 2025-02-23 15:37 | XMS_ITS | Encounter Summary ---
Author Organization [employer] Address [address] [place] [address] 7t [place] [address] Care Team Providers Care It Project Manager Name Role Phone Name, Beau FRANKS Primary Care Provider Bambi Jauregui Unavailable Mechelle Dumont RN Unavailable Unavailable Reason for Visit * Reason Comments Med Refill Encounter Details Date Type Department Care Team ([facility] st Contact Info) Description 01/31/2023 Refill [facility] CHC MED & PEDS [address] [place], [place] [phone] Name, MD Beau 230 [place] [address] Asthma, unspecified asthma severity, unspecified whether complicated, [...] Description 03/24/2025 1:00 PM EST Office Visit [facility] CHC ADULT DENTAL [address] [place] [address] Julita Guillory 230 [place] [address] 04/20/2025 1:00 PM EST Office Visit [facility] OPTOMETRY 267 [place] [address] Alvin, Florecita, OD 230 [place] [address] 04/26/2025 3:30 PM EST Office Visit [facility] MEDICINE 230 [place] [address] Beau Stewart MD [address] [place] [address] documented as of this encounter Visit Diagnoses Diagnosis Asthma, unspecified asthma severity, unspecified whether complicated, unspecified whether persistent documented in this encounter Additional Health Concerns Assessment Noted Time PHQ-9 Depression Total Score: 19 023 3:46 PM EDT documented as of this encounter Care Teams It Project Manager Relationship Specialty Start Date End Date Beau Stewart MD [address] [place] [address] PCP - General Family Medicine 06/01/15 Bambi Jauregui Community Health Worker 06/27/2309/14 Mechelle Dumont, ISABEL Clinical Supervisor 06/27/23 09/15/23 documented as of this encounter
--- OUTSIDE RECORDS SUMMARY | 2025-02-23 15:37 | XMS_ITS | Encounter Summary ---
Author Organization [employer] Address [address] [place] [address] 7 [place] [address] Care Team Providers Care Chief Chemist Name Role Phone Name, Beau FRANKS Primary Care Provider [phone] Bambi Juaregui Unavailable Mechelle Dumont RN Unavailable Unavailable Encounter Details Date Type Department Care Team (Late Contact Info) Description 08/06/2022 Abstract [facility] MEDICINE 230 [place], [place] [phone] Name, MD Beau 230 [place] [address] Social History Tobacco Use Types Packs/Day Years [...] 03/24/2025 1:00 PM EST Office Visit [facility] CHC ADULT DENTAL [address] [place], [place] [phone] Julita Guillory 230 [place] [address] 04/20/2025 1:00 PM EST Office Visit [facility] OPTOMETRY [address] [place], [place] [phone] Florecita Esquivel OD 230 [place] [address] 04/26/2025 3:30 PM EST Office Visit [facility] MEDICINE 230 [place], [place] [phone] Name, MD Beau 230 [place] [address] documented as of this encounter Procedures Procedure Name Priority Date/Time Associated Diagnosis Comments COLONOSCOPY Routine 06/09/2020 2:16 PM EDT documented in this encounter Results * Colonoscopy (06/09/2020 2:16 PM EDT) Colonoscopy Normal Normal Narrative Traci Radha - 06/09/2020 2:16 PM EDT Recommended 10 year follow up ([facility] Historical Provider HEALTH MAINTENANCE Final Result documented in this encounter Visit Diagnoses Not on filedocumented in this encounter Care Teams Chief Chemist Relationship Specialty Start Date End Date Name, MD Beau [address] [place] [address] PCP - General Family Medicine 06/01/15 Bambi Jauregui Community Health Worker 06/27/2309/14 Mechelle Dumont RN Coating Machine Operator 06/27/23 09/15/23 documented as of this encounter
--- OUTSIDE RECORDS SUMMARY | 2025-02-23 15:37 | XMS_ITS | Encounter Summary ---
Author Organization [employer] Address [address] [place] [address] 7 [place] [address] Care Team Providers Care Bid Manager Name Role Phone Name, Beau FRANKS Primary Care Provider [phone] Reason for Visit * Reason Onset Date Comments Med Refill 10/04/2023 Encounter Details Date Type Department Care Team (Late st Contact Info) Description 10/04/2023 Telephone [facility] MEDICINE 230 [place], [place] [phone] Name, MD Beau 230 [place] [address] Med Refill Social History Tobacco Use Types [...] MG EC tablet To be sent to: [id number] [place], [place] - [address] [facility] documented in this encounter Plan of Treatment Upcoming Encounters Date Type Department Care Team (Late st Contact Info) Description 03/24/2025 1:00 PM EST Office Visit [facility] CHC ADULT DENTAL [address] [place] [address] Julita Guillory 230 [place] [address] 04/20/2025 1:00 PM EST Office Visit [facility] OPTOMETRY [address] [place] [address] Florecita Esquivel, OD 230 [place] [address] 04/26/2025 3:30 PM EST Office Visit [facility] MEDICINE 230 [place] [address] Name, MD Beau [facility]io [facility] [place] [address] documented as of this encounter Visit Diagnoses Not on filedocumented in this encounter Additional Health Concerns Assessment Noted Time PHQ-9 Depression Total Score: 19 023 3:46 PM EDT documented as of this encounter Care Teams Bid Manager Relationship Specialty Start Date End Date Name, [place] [address] PCP - General Family Medicine 06/01/15 documented as of this encounter
--- OUTSIDE RECORDS SUMMARY | 2025-02-23 15:37 | XMS_ITS | Encounter Summary ---
Author Organization [employer] Address [address] [place] [address] 7t [place] [address] Care Team Providers Care Painter Maintenance Name Role Phone Name, Beau FRANKS Primary Care Provider [phone] Reason for Visit * Reason Comments Med Refill Encounter Details Date Type Department Care Team ([facility] st Contact Info) Description 10/21/2024 Refill [facility] MEDICINE 230 [place], [place] [phone] Felecia Gunderson NP 230 [place] [address] Asthma, unspecified asthma severity, unspecified whether complicated, [...] Description 03/24/2025 1:00 PM EST Office Visit [facility] CHC ADULT DENTAL [address] [place] [address] Julita Guillory [address] [place] [address] 04/20/2025 1:00 PM EST Office Visit [facility] OPTOMETRY [address] [place] [address] Alvin, Florecita, OD 230 [place] [address] 04/26/2025 3:30 PM EST Office Visit [facility] MEDICINE 230 [place] [address] Name, MD Beau [address] [place] [address] documented as of this encounter Visit Diagnoses Diagnosis Asthma, unspecified asthma severity, unspecified whether complicated, unspecified whether persistent documented in this encounter Additional Health Concerns Assessment Noted Time PHQ-9 Depression Total Score: 24 024 3:46 PM EST documented as of this encounter Care Teams Painter Maintenance Relationship Specialty Start Date End Date Name, MD Beau 230 [place] [address] PCP - General Family Medicine 06/01/15 documented as of this encounter
--- OUTSIDE RECORDS SUMMARY | 2025-02-23 15:37 | XMS_ITS | Encounter Summary ---
Author Organization [employer] Address [address] [place] [address] 7 [place] [address] Care Team Providers Care Technical Assoc Name Role Phone Name, Beau FRANKS Primary Care Provider [phone] Bambi Jauregui Unavailable Mechelle Dumont RN Unavailable Unavailable Encounter Details Date Type Department Care Team (Late Contact Info) Description 03/26/2022 Orders Only [facility] MED & PEDS 505 [place] [address] Kindra Woodall LPN Social History Tobacco Use [...] EST Office Visit [facility] CHC ADULT DENTAL 505 [place] [address] Julita Guillory 230 [place] [address] 04/20/2025 1:00 PM EST Office Visit [facility] OPTOMETRY [address] [place] [address] Florecita Esquivel, OD 230 [place] [address] 04/26/2025 3:30 PM EST Office Visit [facility] MEDICINE 230 [facility] [place] [address] Name, MD Beau [address] [facility] [place] [address] documented as of this encounter Visit Diagnoses Not on filedocumented in this encounter Care Teams Technical Assoc Relationship Specialty Start Date End Date Name, MD Beau 230 [facility] [place] [address] PCP - General Family Medicine 06/01/15 Bambi Jauregui Community Health Worker 06/27/2309/14 Mechelle Dumont RN Lens Marker 06/27/23 09/15/23 documented as of this encounter
--- OUTSIDE RECORDS SUMMARY | 2025-02-23 15:37 | XMS_ITS | Encounter Summary ---
Author Organization [employer] Address [address] [place] [address] 7t [place] [address] Care Team Providers Care Pipe Assembly Worker Name Role Phone Name, Beau FRANKS Primary Care Provider [phone] Bambi Jauregui Unavailable Mechelle Dumont RN Unavailable Unavailable Encounter Details Date Type Department Care Team ([facility] st Contact Info) Description 04/08/2023 Orders Only [facility] CHC MED & PEDS [address] [place], [place] [phone] Ekaterina Pappas LPN Social History Tobacco Use [...] Description 03/24/2025 1:00 PM EST Office Visit [facility] CHC ADULT DENTAL [address] [place] [address] Julita Guillory 230 [place] [address] 04/20/2025 1:00 PM EST Office Visit [facility] OPTOMETRY [address] [place] [address] Alvin, Florecita, OD 230 [place] [address] 04/26/2025 3:30 PM EST Office Visit [facility] MEDICINE 230 [place] [address] NameBeau MD [address] [place] [address] documented as of this encounter Visit Diagnoses Not on filedocumented in this encounter Additional Health Concerns Assessment Noted Time PHQ-9 Depression Total Score: 19 023 3:46 PM EDT documented as of this encounter Care Teams Pipe Assembly Worker Relationship Specialty Start Date End Date NameBeau MD [address] [place] [address] PCP - General Family Medicine 06/01/15 Bambi Jauregui Community Health Worker 06/27/2309/14 Mechelle Dumont RN Densitometer Reader 06/27/23 09/15/23 documented as of this encounter
--- OUTSIDE RECORDS SUMMARY | 2025-02-23 15:37 | XMS_ITS | Encounter Summary ---
Author Organization [employer] Address [address] [place] [address] 7 [place] [address] Care Team Providers Care Conveyor Attendant Name Role Phone Name, Beau FRANKS Primary Care Provider [phone] Bambi Jauregui Unavailable Mechelle Dumont RN Unavailable Unavailable Reason for Visit * Reason Comments Med Refill Encounter Details Date Type Department Care Team (Late st Contact Info) Description 06/08/2022 Refill [facility] MEDICINE 230 [place] [address] Name, MD Beau 230 [place] [address] Asthma, unspecified asthma severity, unspecified whether complicated, [...] Description 03/24/2025 1:00 PM EST Office Visit [facility] CHC ADULT DENTAL 505 [place] [address] Julita Guillory 230 [place] [address] 04/20/2025 1:00 PM EST Office Visit [facility] OPTOMETRY [address] [place], [place] [phone] Alvin Florecita, OD 230 [place] [address] 04/26/2025 3:30 PM EST Office Visit [facility] MEDICINE 230 [place] [address] Name, MD Beau 230 [place] [address] documented as of this encounter Visit Diagnoses Diagnosis Asthma, unspecified asthma severity, unspecified whether complicated, unspecified whether persistent documented in this encounter Care Teams Conveyor Attendant Relationship Specialty Start Date End Date Name, MD Beau [address] [place] [phone] PCP - General Family Medicine 06/01/15 Bambi Jauregui Community Health Worker 06/27/2309/14 Mechelle Dumont, ISABEL Mud Jack Nozzleman 06/27/23 09/15/23 documented as of this encounter
--- OUTSIDE RECORDS SUMMARY | 2025-02-23 15:37 | XMS_ITS | Encounter Summary ---
Author Organization [employer] Address [address] [place] [address] 7 [place] [address] Care Team Providers Care Production Sound Mixer Name Role Phone Name, Beau FRANKS Primary Care Provider [phone] Reason for Visit * Reason Comments Med Refill Encounter Details Date Type Department Care Team ([facility] st Contact Info) Description 02/11/2025 Refill [facility] MEDICINE 230 [place], [place] [phone] Name, MD Beau [address] [place] [address] Asthma, unspecified asthma severity, unspecified whether complicated, [...] EST Office Visit [facility] CHC ADULT DENTAL 505 [place] [address] Julita Guillory 230 [place] [address] 04/20/2025 1:00 PM EST Office Visit [facility] OPTOMETRY [address] [place] [address] Florecita Esquivel, OD 230 [place] [address] 04/26/2025 3:30 PM EST Office Visit [facility] MEDICINE [address] [place] [address] Name, MD Beau [address] [place] [address] documented as of this encounter Goals Goal [...] documented as of this encounter Care Teams Production Sound Mixer Relationship Specialty Start Date End Date Name, MD Beau [address] [place] [address] PCP - General Family Medicine 06/01/15 documented as of this encounter
--- OUTSIDE RECORDS SUMMARY | 2025-02-23 15:37 | XMS_ITS | Encounter Summary ---
Author Organization [email or web address] Address [address] [place] [address] 7 [place] [address] Care Team Providers Care Home Economics Extension Worker Name Role Phone Name, Beau FRANKS Primary Care Provider [phone] Bambi Jauregui Unavailable Mechelle Dumont RN Unavailable Unavailable Encounter Details Date Type Department Care Team (Late Contact Info) Description 02/28/2022 Orders Only [facility] MED & PEDS [address] [place] [address] Kindra Woodall LPN Social History Tobacco Use [...] 1:00 PM EST Office Visit [facility] CHC ADULT DENTAL [address] [place] [address] Julita Guillory 230 [place] [address] 04/20/2025 1:00 PM EST Office Visit [facility] OPTOMETRY 267 [place] [address] Florecita Esquivel, OD 230 [place] [address] 04/26/2025 3:30 PM EST Office Visit [facility] MEDICINE [address] [facility] [place] [address] Name, MD Beau [address] [facility] [place] [place] [address] documented as of this encounter Visit Diagnoses Not on filedocumented in this encounter Care Teams Home Economics Extension Worker Relationship Specialty Start Date End Date Name, MD Beau [address] [facility] [place] [address] PCP - General Family Medicine 06/01/15 Bambi Jauregui Community Health Worker 06/27/2309/14 Mechelle Dumont RN Foreign Diplomat 06/27/23 09/15/23 documented as of this encounter
--- OUTSIDE RECORDS SUMMARY | 2025-02-23 15:37 | XMS_ITS | Clinical Summary ---
Author Organization [facility] Address [address] [place] [address] Phone Care Team Providers Care Production Consultant Name Role Phone Name, Beau FRANKS Primary Care Provider [phone] Medications albuterol (2.5 MG/3ML) 0.083% nebulizer solution [...] Insurance Medicaid [place] Medicaid [place] Care Teams Production Consultant Relationship Specialty Start Date End Date Name, MD Beau [address] [place] [address] PCP - General Internal Medicine 10/05/21
--- OUTSIDE RECORDS SUMMARY | 2025-02-23 15:37 | XMS_ITS | Encounter Summary ---
Author Organization [employer] Address [address] [place] [address] 7t [place] [address] Care Team Providers Care Tire Trimmer Hand Name Role Phone Name, Beau FRANKS Primary Care Provider [phone] Reason for Visit * Reason Comments Med Refill Encounter Details Date Type Department Care Team ([facility] st Contact Info) Description 10/18/2023 Refill [facility] MEDICINE 230 [place], [place] [phone] Chiquis Harris MD 230 [place] [address] Iron deficiency Social History Tobacco Use Types [...] Description 03/24/2025 1:00 PM EST Office Visit [facility] CHC ADULT DENTAL [address] [place] [address] [address] Guillory [address] [place] [address] 04/20/2025 1:00 PM EST Office Visit [facility] OPTOMETRY [address] [place] [address] Alvin, Florecita, OD [address] [place] [address] 04/26/2025 3:30 PM EST Office Visit [facility] MEDICINE [address] [place] [address] Name, MD Beau [address] [place] [address] documented as of this encounter Visit Diagnoses Diagnosis Iron deficiency Disorders of iron metabolism documented in this encounter Additional Health Concerns Assessment Noted Time PHQ-9 Depression Total Score: 19 023 3:46 PM EDT documented as of this encounter Care Teams Tire Trimmer Hand Relationship Specialty Start Date End Date Name, MD Beau [address] [place] [address] PCP - General Family Medicine 06/01/15 documented as of this encounter
--- OUTSIDE RECORDS SUMMARY | 2025-02-23 15:37 | XMS_ITS | Encounter Summary ---
Author Organization [employer] Address [address] [place] [address] 7t [place] [address] Care Team Providers Care Trapper Bird Name Role Phone Name, Beau FRANKS Primary Care Provider [phone] Bambi Jauregui Unavailable Mechelle Dumont RN Unavailable Unavailable Encounter Details Date Type Department Care Team (Late st Contact Info) Description 07/02/2022 Orders Only [facility] MEDICINE 230 [place], [place] [phone] Ekaterina Pappas LPN Social History Tobacco Use [...] Description 03/24/2025 1:00 PM EST Office Visit [facility] CHC ADULT DENTAL 505 [place] [address] Julita Guillory 230 [place] [address] 04/20/2025 1:00 PM EST Office Visit [facility] OPTOMETRY [address] [place], [place] [phone] Alvin Florecita, OD 230 [place] [address] 04/26/2025 3:30 PM EST Office Visit [facility] MEDICINE 230 [place] [address] Name, MD Beau 230 [place] [address] documented as of this encounter Visit Diagnoses Not on filedocumented in this encounter Care Teams Trapper Bird Relationship Specialty Start Date End Date Name, MD Beau 230 [place], [place] [phone] PCP - General Family Medicine 06/01/15 Bambi Jauregui Community Health Worker 06/27/2309/14 Mechelle Dumont RN Avionics Installer 06/27/23 09/15/23 documented as of this encounter
--- OUTSIDE RECORDS SUMMARY | 2025-02-23 15:37 | XMS_ITS | Encounter Summary ---
Author Organization [employer] Address [address] [place] [address] 7 [place] [address] Care Team Providers Care Cross Roller Name Role Phone Name, Beau FRANKS Primary Care Provider [phone] Reason for Visit * Reason Comments Med Refill Encounter Details Date Type Department Care Team ([facility] st Contact Info) Description 11/25/2024 Refill [facility] MED[facility]INE [address] [place], [place] [phone] Name, MD Beau 230 [place] [address] Asthma, unspecified asthma severity, unspecified whether complicated, [...] 1:00 PM EST Office Visit [facility] CH[facility] ADULT DENTAL [address] [place] [address] Julita Guillory [address] [place] [address] 04/20/2025 1:00 PM EST Office Visit [facility] OPTOMETRY [address] [place] [address] Alvin, Florecita, OD 230 [place] [address] 04/26/2025 3:30 PM EST Office Visit [facility] MEDICINE [address] [place] [address] Name, MD Beau 230 [place] [address] documented as of this encounter Visit Diagnoses Diagnosis Asthma, unspecified asthma severity, unspecified whether complicated, unspecified whether persistent documented in this encounter Additional Health Concerns Assessment Noted Time PHQ-9 Depression Total Score: 25 025 11:48 AM EDT documented as of this encounter Care Teams Cross Roller Relationship Specialty Start Date End Date Name, MD Beau 230 [place] [address] PCP - General Family Medicine 06/01/15 documented as of this encounter
--- OUTSIDE RECORDS SUMMARY | 2025-02-23 15:37 | XMS_ITS | Encounter Summary ---
Author Organization [email or web address] Address [address] [place] [address] 7 [place] [address] Care Team Providers Care Industrial Engineering Intern Name Role Phone Name, Beau FRANKS Primary Care Provider [phone] Bambi Jauregui Unavailable Mechelle Dumont RN Unavailable Unavailable Reason for Visit * Reason Comments Med Refill Encounter Details Date Type Department Care Team ([facility] st Contact Info) Description 06/13/2023 Refill [facility] MEDICINE 230 [place] [address] Name, MD Beau 230 [place] [address] Asthma, unspecified asthma severity, unspecified whether complicated, [...] is your housing situation today? I have arciel galvez 12/18/[address] you [...] Description 03/24/2025 1:00 PM EST Office Visit [facility] CHC ADULT DENTAL [address] [place] [address] Julita Guillory 230 [place] [address] 04/20/2025 1:00 PM EST Office Visit [facility] OPTOMETRY 267 [place] [address] Alvin, Florecita, OD [address] [place] [address] 04/26/2025 3:30 PM EST Office Visit [facility] MEDICINE 230 [place] [address] Beau Stewart MD [address] [place] [address] documented as of this encounter Visit Diagnoses Diagnosis Asthma, unspecified asthma severity, unspecified whether complicated, unspecified whether persistent documented in this encounter Additional Health Concerns Assessment Noted Time PHQ-9 Depression Total Score: 19 023 3:46 PM EDT documented as of this encounter Care Teams Industrial Engineering Intern Relationship Specialty Start Date End Date Beau Stewart MD [address] [place] [address] PCP - General Family Medicine 06/01/15 Bambi Jauregui Community Health Worker 06/27/2309/14 Mechelle Dumont, ISABEL Marketing Research Intern 06/27/23 09/15/23 documented as of this encounter
--- OUTSIDE RECORDS SUMMARY | 2025-02-23 15:37 | XMS_ITS | Encounter Summary ---
Author Organization [email or web address] Address [address] [place] [address] 7 [place] [address] Care Team Providers Care Microchip Specialist Name Role Phone Name, Beau FRANKS Primary Care Provider [phone] Reason for Visit * Reason Comments Med Refill Encounter Details Date Type Department Care Team ([facility] st Contact Info) Description 09/19/2023 Refill [facility] MEDICINE 230 [place], [place] [phone] Name, MD Beau 230 [place], [place] [phone] Erectile dysfunction, unspecified erectile dysfunction type Social [...] EST Office Visit [facility] CHC ADULT DENTAL [address] [place] [address] Julita Guillory 230 [place] [address] 04/20/2025 1:00 PM EST Office Visit [facility] OPTOMETRY [address] [place] [address] Alvin, Florecita, OD [address] [place] [address] 04/26/2025 3:30 PM EST Office Visit [facility] MEDICINE [address] [place] [address] Name, MD Beau [address] [place] [address] documented as of this encounter Visit Diagnoses Diagnosis Erectile dysfunction, unspecified erectile dysfunction type documented in this encounter Additional Health Concerns Assessment Noted Time PHQ-9 Depression Total Score: 19 023 3:46 PM EDT documented as of this encounter Care Teams Microchip Specialist Relationship Specialty Start Date End Date Beau Stewart MD [address] [place] [address] PCP - General Family Medicine 06/01/15 documented as of this encounter
--- OUTSIDE RECORDS SUMMARY | 2025-02-23 15:37 | XMS_ITS | Encounter Summary ---
Author Organization [employer] Address [address] [place] [address] 7 [place] [address] Care Team Providers Care Network Technology Instructor Name Role Phone Name, Beau FRANKS Primary Care Provider [phone] Reason for Visit * Reason Comments Med Refill Encounter Details Date Type Department Care Team ([facility] st Contact Info) Description 12/12/2024 Refill [facility] MEDICINE 230 [place], [place] [phone] Name, MD Beau [address] [place] [address] Asthma, unspecified asthma severity, unspecified whether complicated, [...] Description 03/24/2025 1:00 PM EST Office Visit [facility] CHC ADULT DENTAL [address] [place] [address] Julita Guillory [address] [place] [address] 04/20/2025 1:00 PM EST Office Visit [facility] OPTOMETRY [address] [place] [address] Alvin, Florecita, OD 230 [place] [address] 04/26/2025 3:30 PM EST Office Visit [facility] MEDICINE 230 [place] [address] Name, MD Beau [address] [place] [address] documented as of this encounter Visit Diagnoses Diagnosis Asthma, unspecified asthma severity, unspecified whether complicated, unspecified whether persistent documented in this encounter Additional Health Concerns Assessment Noted Time PHQ-9 Depression Total Score: 25 025 11:48 AM EDT documented as of this encounter Care Teams Network Technology Instructor Relationship Specialty Start Date End Date Name, MD Beau [address] [place] [address] PCP - General Family Medicine 06/01/15 documented as of this encounter
--- OUTSIDE RECORDS SUMMARY | 2025-02-23 15:37 | XMS_ITS | Encounter Summary ---
Author Organization [employer] Address [address] [place] [address] 7 [place] [address] Care Team Providers Care Head Char Filter Tank Tender Name Role Phone Name, Beau FRANKS Primary Care Provider [phone] Reason for Visit * Reason Comments Med Refill Encounter Details Date Type Department Care Team ([facility] st Contact Info) Description 01/12/2025 Refill [facility] MEDICINE 230 [place], [place] [phone] Name, MD Beau 230 [place] [address] Asthma, unspecified asthma severity, unspecified whether complicated, [...] Description 03/24/2025 1:00 PM EST Office Visit [facility] CHC ADULT DENTAL [address] [place] [address] Julita Guillory [address] [place] [address] 04/20/2025 1:00 PM EST Office Visit [facility] OPTOMETRY [address] [place] [address] Alvin, Florecita, OD 230 [place] [address] 04/26/2025 3:30 PM EST Office Visit [facility] MEDICINE 230 [place] [address] Name, MD Baeu 230 [place] [address] documented as of this encounter Visit Diagnoses Diagnosis Asthma, unspecified asthma severity, unspecified whether complicated, unspecified whether persistent documented in this encounter Additional Health Concerns Assessment Noted Time PHQ-9 Depression Total Score: 25 025 11:48 AM EDT documented as of this encounter Care Teams Head Char Filter Tank Tender Relationship Specialty Start Date End Date Name, MD Beau 230 [place] [address] PCP - General Family Medicine 06/01/15 documented as of this encounter
--- OUTSIDE RECORDS SUMMARY | 2025-02-23 15:37 | XMS_ITS | Encounter Summary ---
Author Organization [employer] Address [address] [place] [address] 7 [place] [address] Care Team Providers Care Benefits Sales Consultant Name Role Phone Name, Beau FRANKS Primary Care Provider [phone] Reason for Visit * Reason Comments Med Refill Encounter Details Date Type Department Care Team ([facility] st Contact Info) Description 06/02/2024 Refill [facility] MEDICINE 230 [place], [place] [phone] Name, MD Beau 230 [place] [address] Asthma, unspecified asthma severity, unspecified whether complicated, [...] Description 03/24/2025 1:00 PM EST Office Visit [facility] CHC ADULT DENTAL [address] [place] [address] Julita Guillory [address] [place] [address] 04/20/2025 1:00 PM EST Office Visit [facility] OPTOMETRY [address] [place] [address] Alvin, Florecita, OD 230 [place] [address] 04/26/2025 3:30 PM EST Office Visit [facility] MEDICINE 230 [place] [address] Name, MD Beau [address] [place] [address] documented as of this encounter Visit Diagnoses Diagnosis Asthma, unspecified asthma severity, unspecified whether complicated, unspecified whether persistent documented in this encounter Additional Health Concerns Assessment Noted Time PHQ-9 Depression Total Score: 24 024 3:46 PM EST documented as of this encounter Care Teams Benefits Sales Consultant Relationship Specialty Start Date End Date Name, MD Beau 230 [place] [address] PCP - General Family Medicine 06/01/15 documented as of this encounter
--- OUTSIDE RECORDS SUMMARY | 2025-02-23 15:38 | XMS_ITS | Encounter Summary ---
Author Organization [email or web address] Address [address] [place] [address] 7 [place] [address] Care Team Providers Care Rock Crusher Operator Name Role Phone Name, Beau FRANKS Primary Care Provider [phone] Bambi Jauregui Unavailable Mechelle Dumont RN Unavailable Unavailable Reason for Visit * Reason Onset Date Comments PT1 11/14/2022 Encounter Details Date Type Department Care Team ([facility] st Contact Info) Description 11/14/2022 Telephone [facility] MEDICINE 230 [place] [address] Name, MD Beau 230 [place] [address] PT1 Social History Tobacco Use Types Packs/Day [...] 10:01 AM EDT Allergy PT-1 Request Number [id number] is Pending Dr Salazar PT-1 Request Number [id number] is Pending Ortho PT-1 Request Number [id number] is Pending Pt has an active PT1 for [facility] * Telephone Encounter - Melva Ocampo - 11/14/2022 3:57 PM EDT PT1 Address verified Date: 11/20/22 Time: 2 pm Visits: Address: [address] [place] Facility: Allergy Injection Wheel Chair: n/a Balancer Needed: no PT1 Date: 12/05/22 Time: 11:30 am Visits: Address: [address] [place] Facility: Orthopedic Wheel Chair: n/a Balancer Needed: no PT1 Date: 12/07/22 Time: 11:15 am Visits: Address: [address] [place] [address] Facility: PCP Wheel Chair: n/a Balancer Needed: no PT1 Date: 12/07/22 Time: 2:30 pm Visits: Address: [address] [place] Facility: Dr. Salazar Wheel Chair: n/a Balancer Needed: no documented in this encounter Plan of Treatment Upcoming Encounters Date Type Department Care Team (Late st Contact Info) Description 03/24/2025 1:00 PM EST Office Visit [facility] CHC ADULT DENTAL [address] [place] [address] Pastora Amitoj 230 [place] [address] 04/20/2025 1:00 PM EST Office Visit [facility] OPTOMETRY [address] [place] [address] Alvin, Florecita, OD 230 [place] [address] 04/26/2025 3:30 PM EST Office Visit [facility] MEDICINE 230 [place] [address] Name, MD Beau [address] [place] [address] documented as of this encounter Visit Diagnoses Not on filedocumented in this encounter Care Teams Rock Crusher Operator Relationship Specialty Start Date End Date Name, MD Beau [address] [place] [address] PCP - General Family Medicine 06/01/15 Bambi Jauregui Community Health Worker 06/27/2309/14 Mechelle Dumont RN Vice President For Instruction 06/27/23 09/15/23 documented as of this encounter
--- OUTSIDE RECORDS SUMMARY | 2025-02-23 15:38 | XMS_ITS | Clinical Summary ---
Author Organization [employer] Address [address] [place] [address] 7[address] [place] [address] Care Team Providers Care Career Coordinator Name Role Phone Name, Beau FRANKS Primary Care Provider [phone] Allergies Active Allergy Reactions Criticality Noted Date [...] procedure 2 capsule 3 06/06/19 24 Active Additional Information Patient not taking.Reported on 02/23/2025 chlorhexidine (Peridex) 0.12 % solution Swish 15 [...] USE TO INJECT FOUR TIMES DAILY 06/06/19 Active acetaminophen (Tylenol) 500 MG tablet Take 1 tablet (500 mg) by mouth every 6 (six) hours if needed for mild pain for up to 20 doses. 20 tablet 09/27/19 Active Additional Information Patient not taking.Reported on 02/23/2025 bumetanide (Bumex) 1 MG tablet Take 1 [...] FOR BACK PAIN 100 g 1 06/30/19 Active Additional Information Patient not taking.Reported on 02/23/2025 lisinopril (Zestril) 30 MG tabletIndicati ons:GONZALEZ (dyspnea [...] tablet 1 01/20/20 25 Active sodium chloride (Puhi Nasal Tignall) 0.65 % nasal spray Administer 1 spray into each nostril if needed for congestion. 30 mL 12 02/11/20 25 2025 Active Ventolin HFA 108 [...] per day for 2 days. 20 tablet 02/18/20 25 2025 Active ipratropium-al buterol (Duo-Neb) 0.5-2.5 mg/3 mL nebulizer solution Take 3 mL by nebulization every 6 (six) hours if needed for wheezing or shortness of breath. Do not use with your albuterol nebules 180 mL 2 02/18/20 Active clindamycin (Cleocin) 150 MG capsule Take 1 capsule (150 mg) by mouth 4 times daily for 7 days. 28 capsule 02/24/202025 Active acetaminophen (Tylenol 8 Hour) 650 MG ER tablet Take 1 tablet (650 mg) by mouth every 8 (eight) hours if needed for moderate pain for up to 10 days. Do not crush, chew, or split. 15 tablet 02/24/202025 Active ibuprofen 600 MG tablet Take 1 tablet (600 mg) by mouth every 6 (six) hours if needed for mild pain for up to 10 days. 15 tablet 02/24/202025 Active chlorhexidine (Peridex) 0.12 % solution Use 15 mL in the mouth or throat if needed (for mouthwash 15 ml for 30 seconds, swish and spit) for up to 14 days. 473 mL 02/24/202025 Active Arnuity Ellipta 200 MCG/ACT inhaler INHALE [...] day for 5 days. 10 tablet 02/11/202024 ipratropium-al buterol (Duo-Neb) 0.5-2.5 mg/3 mL nebulizer solution Take 3 mL by nebulization every 6 (six) hours if needed for wheezing or shortness of breath. Do not use with your albuterol nebules 180 mL 12/2024 Discontinued(R eorder (will not trigger notification to [...] avoid culprits, PPI Acute hypoxemic respiratory failure ([facility]) Lumbar radiculopathy, chronic 11/19/2024 Cirrhosis ([facility]) 11/19/2024 Overview (11/19/2024): Abstain from alcohol- Weight loss, avoid weight gain, good glucose and cholesterol control. Diabetes 11/19/2024 Edema 11/19/2024 Elevated alkaline phosphatase measurement 2024 Overview (11/19/2024): U/S Environmental allergies 11/19/2024 Erosive esophagitis 11/19/2024 Foot drop, left 11/19/2024 Gallstone pancreatitis 11/19/2024 Hand numbness 11/19/2024 Hyperlipidemia 11/19/2024 Iron deficiency anemia 11/19/2024 Lower extremity edema 11/19/2024 Major depressive disorder, severe ([facility]) 10/27 Paresthesia 11/19/2024 Severe persistent allergic asthma [...] it until Saturday when he will see trading assistant, as much as possible, I gave him [...] Encounters Date Type Department Care Team Description 02/23/2025 11:00 AM EST Office Visit [facility] [address] [facility] [place] [address] Do-Foster, Betsy, DDS Rampant dental caries (Primary Dx); Dental abscess 02/23/2025 Orders Only GENERIC EXTERNAL DATA DEPARTMENT Provider, Generic External Data 02/17/2025 11:40 AM EST Office Visit [facility] [address] [place] [phone] Isaiah Ballard MD Cough in adult patient (Primary Dx); Hypoxia; Essential hypertension 02/17/[address] [address] Beau Stewart MD Nurse Triage 02/17/2025 Travel 02/11/2025 Orders Only GENERIC EXTERNAL DATA DEPARTMENT Provider, Generic External Data 02/11/2025 Refill [facility] [address] [place] [phone] She Jc, ISABEL Asthma, unspecified asthma severity, unspecified whether complicated, unspecified whether persistent 02/11/[address] [address] Beau Stewart MD Asthma, unspecified asthma severity, unspecified whether complicated, unspecified whether persistent 02/10/2025 11:00 AM EST Office Visit [address] [address] Sarina Donato, FOURDRINIER OPERATOR SOB (shortness of breath) (Primary Dx); Sore throat (viral); Productive cough; Chest pain, non-cardiac 02/10/2025 Travel 02/09/2025 [facility] [address] [address] Beau Stewart MD Chart Prep 02/08/[address] [address] Beau Stewart MD Nurse Triage 02/05/2025 Telephone [facility] [address] [place] [address] Erlinda Swain MA dec recalls 01/27/2025 Telephone [facility] [address] [place] [address] Beau Stewart MD Durable Medical Equipment 01/19/2025 Refill [facility] [address] [place] [address] Beau Stewart MD 01/14/2025 Refill [facility] [address] [place] [address] Beau Stewart MD Asthma, unspecified asthma severity, unspecified whether complicated, unspecified whether persistent 01/12/2025 Refill [facility] [address] [place] [address] Beau Stewart MD Asthma, unspecified asthma severity, unspecified whether complicated, unspecified whether persistent 01/11/2025 Orders Only GENERIC EXTERNAL DATA DEPARTMENT Provider, Generic External Data 01/05/2025 Refill [facility] [address] [place] [address] Beau Stewart MD Asthma, unspecified asthma severity, unspecified whether complicated, unspecified whether persistent; Seborrheic dermatitis 12/12/2024 Refill [facility] [address] [place] [address] Beau Stewart MD Asthma, unspecified asthma severity, unspecified whether complicated, unspecified whether persistent 12/11/2024 Telephone [facility] [address] [place] [address] Beau Stewart MD Med Refill 12/08/2024 Refill [facility] [address] [place] [address] Beau Stewart MD Asthma, unspecified asthma severity, unspecified whether complicated, unspecified whether persistent 11/25/2024 Refill [facility] [address] [place] [address] Beau Stewart MD Asthma, unspecified asthma severity, [...] Pulse 70 02/23/2025 11:08 AM EST Temperature 36.8 C (98.2 F) 02/17/2025 [...] 1:00 PM EST Office Visit [facility] [address] [place] [address] Julita Guillory [address] [place] [address] 04/20/2025 1:00 PM EST Office Visit [facility] [address] [place] [address] Alvin, Florecita, OD [address] [place] [address] 04/26/2025 3:30 PM EST Office Visit [facility] [address] [place] [address] Name, MD Beau [address] [place] [address] Health Maintenance Due Date Last Done Comments [...] Additional history exists Disability Screening 09/04/2025 09/04/2024 Alcohol/Substance Use Screening 02/23/2026 02/23/2025 Diabetes: Urine Protein Screening 02/23/2026 02/23/2025, 10/14/2024, 08/24/2024, Additional history exists Tobacco Screening 02/23/2026 02/23/2025 Dental X-Ray: Full Mouth 02/25/2028 025, 09/27/2023, 07/03/2022 Colonoscopy 06/09/2030 06/09/2020 Colorectal Cancer Screening 06/09/2030 [...] Care Plan Weekly blood pressure task No Josafat Krupa Patient has chronic kidney disease Care Plan Patient has chronic kidney disease No Josafat Krupa Patient has chronic kidney disease Care Plan Patient has chronic kidney disease No Josafat Krupa Procedures Procedure Name Priority Date/Time Associated Diagnosis Comments GLUCOSE, WHOLE BLOOD Routine 02/23/2025 1:48 PM EST PROTEIN CREATININE RATIO, URINE Routine 02/23/2025 11:46 AM EST CBC Routine 02/23/2025 11:46 AM EST CASE PRESENTATION, DETAILED AND EXTENSIVE TREATMENT PLANNING Routine 02/23/2025 11:00 AM EST Rampant dental caries Dental abscess PANORAMIC RADIOGRAPHIC IMAGE Routine 02/23/2025 11:00 AM EST Rampant dental caries Dental abscess LIMITED ORAL EVALUATION - PROBLEM FOCUSED Routine 02/23/2025 11:00 AM EST Rampant dental caries Dental abscess XR CHEST 2 VIEWS Routine 02/17/2025 1:00 PM EST Cough in adult patient Hypoxia POCT INFLUENZA A (ID NOW RAPID MOLECULAR) [...] PSA, TOTAL Routine 01/11/2025 3:30 PM EST POCT GLYCATED HEMOGLOBIN, TOTAL Routine 11/19/2024 11:42 AM EDT Type 2 diabetes mellitus with other specified complication, with long-term current use of insulin (CMS/HCC) LIPID PANEL, STANDARD Routine 07/07/2024 3:17 PM EDT HEPATITIS C AB W/REFL TO HCV RNA, QN, PCR Routine 11/06/2023 3:26 PM EDT Other cirrhosis of liver (CMS/HCC) INTRAORAL - COMPLETE SERIES OF RADIOGRAPHIC IMAGES Routine 07/03/2022 3:00 PM EDT PERIODIC ORAL EVALUATION - ESTABLISHED PATIENT Routine 07/03/2022 3:00 PM EDT HM COLONOSCOPY Routine 06/09/2020 2:16 PM EDT from Last 3 Months or Most Recently Relevant to Health Maintenance Results * (ABNORMAL) Glucose, Whole Blood (02/23/2025 1:48 PM EST) Glucose, Whole Blood 167(H) 60 - 115 mg/dL [facility] Comment:METER #: [id number] Testing performed in the Endocrinology Department [address] , [address], [facility]. 02/23/2025 1:48 PM EST 02/23/2025 1:52 PM EST Generic External Data Provider LAB BLOOD ORDERAB LES Final Result Performing Organization Address [facility] Co de Phone Number [facility] [address] [place] [phone] * Protein Creatinine Ratio, Urine (02/23/2025 11:46 AM EST) Creatinine, Urine 30.23 mg/dL [facility] Protein, Total, Random Urine <7 <12 mg/dL [facility] Protein/Creatin ine Ratio, Ur TNP <0.2 [facility] Comment:Unable to calculate urine protein creatinine ratio due tolow creatinine or protein result. 02/23/2025 11:4 6 AM EST 02/23/2025 2:03 PM EST us Generic External Data Provider LAB URINE ORDERAB LES Final Result Performing Organization Address [facility] de Phone Number [facility] [address] [place] [phone] * (ABNORMAL) CBC (02/23/2025 11:46 AM EST) White Blood Count 13.0(H) 4.8 - 10.8 X10*3/uL [facility] Red Blood Count 4.64 4.60 - 5.80 X10*6/uL [facility] Hemoglobin 14.0 14.0 - 18.0 g/dl [facility] Hematocrit 41.5(L) 42.0 - 52.0 % [facility] Mean Corpuscular Volume 89.4 80.0 - 98.0 fL [facility] Mean Corpuscular Hemoglobin 30.2 27.0 - 33.0 pg [facility] Mean Corpuscular HGB Conc 33.7 31.0 - 36.0 g/dl [facility] Red Cell Distribution Width 15.1 11.0 - 16.0 % [facility] Platelet Count 309 160 - 400 X10*3/uL [facility] Mean Platelet Volume 10.0 9.4 - 12.4 fL [facility] NRBC Pct Auto 0.0 0.0 - 0.2 /100WBC [facility] NRBC Abs Auto 0.000 0.0 - 0.012 X10*3/uL [facility] 02/23/2025 11:4 6 AM EST 02/23/2025 1:50 PM EST us Generic External Data Provider LAB BLOOD ORDERAB LES Final Result Performing Organization Address City/State/[facility] de Phone Number [facility] [address] [place] [phone] * XR Chest 2 Views (02/17/2025 1:00 PM EST) Only the most recent of2 resultswithin the time period is included. Anatomical Region Laterality Modality Chest Radiographic Mira ging 02/17/2025 1:00 PM EST Narrative 02/17/2025 1:22 PM EST [address] [address] XRay Report Signed Patient: Manjit May MR#: [id number] 58 : 1970 Acct:[id number] Age/Sex: 55 / M ADM Date: 02/17/25 Loc: HO.HHCX Attending Dr: Isaiah Ballard MD Ordering Physician: ISAIAH BALLARD MD Date of Service: 02/17/25 Procedure(s): XR chest 2V Accession Number(s): [id number] cc: ISAIAH BALLARD MD Reason for Exam: persistent productive cough, had CXR 1 week ago. H/o CHF. EXAMINATION: XR CHEST 2 VIEWS HISTORY: persistent productive cough, had CXR 1 week ago. H/o CHF. COMPARISON: Comparison is made with the prior examination dated 02/10/2025. FINDINGS: PA and lateral views of the chest are submitted. The lungs are expanded and clear. There is no pleural effusion, pneumothorax, or pulmonary vascular congestion. The heart is normal in size. There is degenerative disc disease of the spine. XR/XR chest 2V IMPRESSION: No acute cardiopulmonary abnormality. Electronically signed by: Balta Dubois MD 02/17/2025 01:19 PM EST RP Dictated By: Balta Dubois MD Signed By: <Electronically signed by Balta Dubois MD in OV> 02/17/25 1319 DD/ 1300 TD/TT: 02/17/25 1314 Motor Driver: Procedure Note Donotuseinterpreter, Image - 02/17/[address] [address] XRay Report Signed Patient: Manjit May AMR#: [id number] 58 : 1970Acct:[id number] Age/Sex: 55 / MADM Date: 02/17/25 Loc: HO.HHCX Attending Dr: Isaiah Ballard MD Ordering Physician: ISAIAH BALLARD MD Date of Service: 02/17/25 Procedure(s): XR chest 2V Accession Number(s): [id number] cc: ISAIAH BALLARD MD Reason for Exam: persistent productive cough, had CXR 1 week ago. H/oCHF. EXAMINATION: XR CHEST 2 VIEWS HISTORY: persistent productive cough, had CXR 1 week ago. H/o CHF. COMPARISON: Comparison is made with the prior examination dated 02/10/2025. FINDINGS: PA and lateral views of the chest are submitted. The lungs are expanded and clear. There is no pleural effusion, pneumothorax, or pulmonary vascular congestion. The heart is normal in size. There is degenerative disc disease of the spine. XR/XR chest 2V IMPRESSION: No acute cardiopulmonary abnormality. Electronically signed by: Balta Dubois MD 02/17/2025 01:19 PM EST RP Dictated By: Balta Dubois MD Signed By: <Electronically signed by Balta Dubois MD in OV> 02/17/25 1319 DD/ 1300 TD/TT: 02/17/25 1314 Motor Driver: Result Jason Ballard MD IMG XR PROCEDURES Edited Result - Final * Influenza B (ID NOW Rapid Molecular) (02/17/2025 12:14 PM EST) Only the most recent of2 resultswithin the time period is included. Influenza B Negative Negative, Indeterminate [facility] Swab 02/17/2025 12:1 4 PM EST Result Jason Ballard MD POINT OF CARE TEST ENTER/EDIT OR DERABLES Final Result Performing Organization Address City/[facility]/ZIP Co de Phone Number [facility] [address] [place] [phone] * Influenza A (ID NOW Rapid Molecular) (02/17/2025 12:14 PM EST) Only the most recent of2 resultswithin the time period is included. Influenza A Negative Negative, Indeterminate [facility] Swab 02/17/2025 12:1 4 PM EST Result Jason Ballard MD POINT OF CARE TEST ENTER/EDIT OR DERABLES Final Result Performing Organization Address City/[facility]/ZIP Co de Phone Number [facility] [address] [place] [phone] * POCT Rapid COVID Ag (02/17/2025 12:13 PM EST) Only the most recent of2 resultswithin the time period is included. Rapid COVID Ag Negative Swab 02/17/2025 12:1 3 PM EST Result Jason Ballard MD POINT OF CARE TEST ENTER/EDIT OR DERABLES Final Result * (ABNORMAL) CBC auto differential (02/11/2025 12:26 PM EST) White Blood Count 10.7 4.8 - 10.8 X10*3/uL [facility] Red Blood Count 3.98(L) 4.60 - 5.80 X10*6/uL [facility] Hemoglobin 12.1(L) 14.0 - 18.0 g/dl [facility] Hematocrit 36.0(L) 42.0 - 52.0 % [facility] Mean Corpuscular Volume 90.5 80.0 - 98.0 fL [facility] Mean Corpuscular Hemoglobin 30.4 27.0 - 33.0 pg [facility] Mean Corpuscular HGB Conc 33.6 31.0 - 36.0 g/dl [facility] Red Cell Distribution Width 15.9 11.0 - 16.0 % [facility] Platelet Count 316 160 - 400 X10*3/uL [facility] Mean Platelet Volume 8.9(L) 9.4 - 12.4 fL [facility] Neutrophils Percent Auto 71.4 45 - 73 % [facility] Imm Gran Pct Auto 0.3 0.0 - 0.4 % [facility] Lymphocytes Percent Auto 23.3 20 - 40 % [facility] Monocytes Percent Auto 4.8 2 - 11 % [facility] Eosinophils Percent Auto 0.0 0 - 4 % [facility] Basophils Percent Auto 0.2 0 - 2 % [facility] NRBC Pct Auto 0.0 0.0 - 0.2 /100WBC [facility] Neutrophils Absolute Auto 7.7 2.0 - 8.3 x10*3/uL [facility] Imm Gran Abs Auto 0.03 0.00 - 0.03 X10*3/uL [facility] Lymphocytes Absolute Auto 2.5 1.2 - 4.9 X10*3/uL [facility] Monocytes Absolute Auto 0.5 0.1 - 1.2 X10*3/uL [facility] Eosinophils Absolute Auto 0.0 0.0 - 0.4 X10*3/uL [facility] Basophils Absolute Auto 0.0 0.0 - 0.2 X10*3/uL [facility] NRBC Abs Auto 0.000 0.0 - 0.012 X10*3/uL [facility] 02/11/2025 12:2 6 PM EST 02/11/2025 12:26 PM EST Generic External Data Provider LAB BLOOD ORDERAB LES Final Result Performing Organization Address City/[facility]/ZIP Co de Phone Number [facility] [address] [place] [phone] * POCT Rapid Strep A LUDWIG ID NOW (02/10/2025 10:54 AM EST) Rapid Strep A Screen Negative Negative, None Detected QC Media Lot # [id number] Lot# Expiration Date Swab 02/10/2025 10:5 4 AM EST Sarina Donato FOURDRINIER OPERATOR POINT OF CARE TEST ENTER/EDIT ORDERABLES Edited Result - Final * PSA,Total (01/11/2025 3:30 PM EST) Prostate Specific Antigen 0.32 <0.05 - 4.0 ng/mL [facility] Comment:PSA methodology: Abb michelle Aliabenaty i ChemiluminescentMicroparticle Immunoassay (CMIA) 01/11/2025 3:30 PM EST 01/11/2025 3:30 PM EST Generic External Data Provider LAB BLOOD ORDERAB LES Final Result [facility] [address] [place] [address] [phone] * (ABNORMAL) POCT Hgb A1c (11/19/2024 11:42 AM EDT) Hemoglobin A1C 6.7(A) 4.0 - 5.7 % QC Media Lot # [id number] Lot# Expiration Date Blood 11/19/2024 11:4 2 AM EDT us Beau Stewart MD POINT OF CARE TEST ENTER/EDIT OR DERABLES Final Result * (ABNORMAL) Lipid Panel, Standard (07/07/2024 3:17 PM EDT) Triglycerides 195(H) <150 mg/dL [facility] Comment:Desirable Triglyceri de: less than 150 mg/dLBorderline High Triglyceride 150-199 mg/dLHigh Triglyceride: 200-499 mg/dLVery High Triglyceride: greater than or equal to 5OO mg/dL Cholesterol 128 <200 mg/dL [facility] Comment:Desirable Cholestero l: less than 200 mg/dLBorderline High Cholesterol: 200-239 mg/dLHigh Cholesterol: greater than 239 mg/dL LDL Cholesterol Calculated 53 <100 mg/dL [facility] Comment:Desirable LDL: less than 100 mg/dLNear Optimal/Above Optimal LDL: 110- 129 mg/dLBorderline High LDL: 130-159 mg/dLHigh LDL: 160-189 mg/dLVery High LDL: greater than or equal to 190 mg/dL HDL Cholesterol 36(L) >40 mg/dL [facility] Comment:Desirable HDL: great er than 40 mg/dL Note: This HDL assay may give artificially low results in patients with liver disease. 07/07/2024 3:17 PM EDT 07/07/2024 3:17 PM EDT us Generic External Data Provider LAB BLOOD ORDERAB LES Final Result [facility] [address] [place] [phone] * Hepatitis C Antibody with Reflex to HCV, RNA, Quantitative, Real-Time PCR (11/06/2023 3:26 PM EDT) Hepatitis C Antibody Nonreactive Nonreactive [facility] Comment:Antibodies to HCV no t detected; does not exclude early acuteHCV infection. Blood Venous blood specimen / Unknown 11/06/2023 3:26 PM EDT 11/06/2023 3:58 PM EDT us Beau Stewart MD LAB BLOOD ORDERABLES Final Resul t [facility] [address] [place] [phone] [phone] * Hm Colonoscopy (06/09/2020 2:16 PM EDT) Colonoscopy Normal Normal Narrative Radha Aviles - 06/09/2020 2:16 PM EDT Recommended 10 year follow up ([facility]) us Historical Provider HEALTH [...] 02/23/2025 Patient has chronic kidney disease 02/23/2025 Insurance [facility] C3 DENTAL-[facility] MEDICAID STAND ADULT Care Teams Career Coordinator Relationship Specialty Start Date End Date Name, MD Beau [address] [place] [phone] PCP - General Family Medicine 06/01/15
--- OUTSIDE RECORDS SUMMARY | 2025-02-23 15:38 | XMS_ITS | Encounter Summary ---
Author Organization [employer] Address [address] [place] [address] 7 [place] [address] Care Team Providers Care Bridge Teacher Name Role Phone Name, Beau FRANKS Primary Care Provider [phone] Bambi Jauregui Unavailable Mechelle Dumont RN Unavailable Unavailable Reason for Visit * Reason Comments Med Refill Encounter Details Date Type Department Care Team ([facility] st Contact Info) Description 02/21/2023 Refill [facility] [address] [place] [address] Name, MD Beau [address] [place] [address] Chronic pain syndrome Social History Tobacco Use [...] Description 03/24/2025 1:00 PM EST Office Visit [facility] ADULT [facility] [address] [place] [address] Julita Guillory [address] [place] [phone] 04/20/2025 1:00 PM EST Office Visit [facility] OPTOM[facility]RY [address] [place] [address] Alvin, Florecita, OD [address] [place] [phone] 04/26/2025 3:30 PM EST Office Visit [facility]INE [address] [place] [phone] Beau Stewart MD [address] [place] [phone] documented as of this encounter Visit Diagnoses Diagnosis Chronic pain syndrome documented in this encounter Additional Health Concerns Assessment Noted Time PHQ-9 Depression Total Score: 19 023 3:46 PM EDT documented as of this encounter Care Teams Bridge Teacher Relationship Specialty Start Date End Date Beau Stewart MD [address] [place] [phone] PCP - General Family Medicine 06/01/15 Bambi Jauregui Community Health Worker 06/27/2309/14 Mechelle Dumont RN Outpatient Phlebotomist 06/27/23 09/15/23 documented as of this encounter
[2025-02-23 16:50] LABS: Albumin Level 4.0 g/dL (3.5-5.0); Anion Gap 14 (12-20); Blood Urea Nitrogen 19 mg/dL (9-16); Carbon Dioxide 27 mmol/L (22-29); Chloride 101 mmol/L (96-108); Estimated Glomerular Filt Rate > 60; Potassium 4.0 mmol/L (3.3-5.1); Sodium 138 mmol/L (135-145); Uric Acid 6.5 mg/dL (3.4-7.0)
[2025-02-23 16:59] LABS: Alanine Aminotransferase 51 U/L (0-40); Albumin Level 3.9 g/dL (3.5-5.0); Alkaline Phosphatase 193 U/L (39-117); Anion Gap 13 (12-20); Aspartate Amino Transferase 47 U/L (5-37); Blood Urea Nitrogen 19 mg/dL (9-16); Calcium 9.0 mg/dL (8.4-10.2); Carbon Dioxide 27 mmol/L (22-29); Chloride 101 mmol/L (96-108); Estimated Glomerular Filt Rate > 60; Ferritin 273 ng/mL (20-250); Potassium 4.0 mmol/L (3.3-5.1); Sodium 137 mmol/L (135-145); Total Protein 7.2 g/dL (6.5-8.0)
[2025-02-23 21:18] LABS: Hematocrit 41.8 % (42.0-52.0); Hemoglobin 13.8 g/dl (14.0-18.0); Imm Gran Abs Auto 0.06 X10*3/uL (0.00-0.03); Imm Gran Pct Auto 0.4 % (0.0-0.4); Lymphocytes Absolute Auto 2.2 X10*3/uL (1.2-4.9); Mean Corpuscular HGB Conc 33.0 g/dl (31.0-36.0); Mean Corpuscular Hemoglobin 29.7 pg (27.0-33.0); Mean Corpuscular Volume 90.1 fL (80.0-98.0); NRBC Abs Auto 0.000 X10*3/uL (0.0-0.012); NRBC Pct Auto 0.0 /100WBC (0.0-0.2); Platelet Count 258 X10*3/uL (160-400); Red Blood Count 4.64 X10*6/uL (4.60-5.80); White Blood Count 13.6 X10*3/uL (4.8-10.8)
== END 2025-02-23 11:35 | disposition home or self-care (01) ==
LOC: HO.HHCL 11:34
PROVIDERS: Internal Medicine Medical Oncology; Nurse Practitioner Family; PCP Internal Medicine Geriatric Medicine; Referring Provider Internal Medicine Gastroenterology; Visit Provider Internal Medicine Nephrology
DX: E11.42 Type 2 diabetes mellitus with diabetic polyneuropathy (principal); E11.65 Type 2 diabetes mellitus with hyperglycemia; D64.9 Anemia, unspecified; E66.01 Morbid (severe) obesity due to excess calories; Z71.3 Dietary counseling and surveillance; G47.33 Obstructive sleep apnea (adult) (pediatric); E79.0 Hyperuricemia without signs of inflammatory arthritis and tophaceous disease; I12.9 Hypertensive chronic kidney disease with stage 1 through stage 4 chronic kidney disease, or unspecified chronic kidney disease; E11.22 Type 2 diabetes mellitus with diabetic chronic kidney disease; N18.31 Chronic kidney disease, stage 3a; R60.0 Localized edema; D50.9 Iron deficiency anemia, unspecified; Z79.4 Long term (current) use of insulin; Z68.42 Body mass index [BMI] 45.0-49.9, adult; Z79.84 Long term (current) use of oral hypoglycemic drugs
CPT/HCPCS: 36415; 80051; 80053; 82040; 82565; 82570; 82728; 82947; 83036; 84156; 84520; 84550; 85025; 85027; 95250; 99212

== ENCOUNTER 2025-02-23 13:37 | Outpatient (AMB) | payer MEDICAID, SELFPAY ==
[2025-02-23 13:42] VITALS: BP 120/80; PULSE 120; O2SAT 96; BMI 47.7
--- NOTE | 2025-02-23 13:42 | MHC.OFFVIS ---
Vital Signs 02/23/25 13:42 Height 5 ft 6 in Weight 295 lb 6.711 oz BMI 47.7 BP 120/80 Blood Pressure Location Rt brachial Position Sitting Pulse 120 H Pulse Source Pulse Oximeter Pulse Oximetry (%) 96 Oxygen Delivery Method Room Air Intake Visit Reasons: T2DM Intake Note: Patient presents today for a follow-up on Type 2 Diabetes Mellitus: Glucose data available (sensor/reader/meter/pump): Yes / No Last Diabetic eye exam was on: Coming up appt at [facility]. Last Podiatry exam was on: Patient does not see a Supervisor Refining Most recent HbA1c: 6.9%, 02/13/2025 Random Glucose- 167 mg/dL, Today Marine Painter Required: No Accompanied by: Self / Same As Patient Allergies mold Allergy (Unknown, Verified 02/23/25 13:49) Difficulty Breathing pollen extracts Allergy (Verified 02/23/25 13:49) Unknown HPI Comments Details: Pt is a 54 y/o male who presents today for a diabetic follow-up. He has a hx of htn, ED, gerd, hld, t2dm, gallstone pancreatitis, asthma, maurizio on cpap, anemia and depression. Initial HPI -DM- A1c is 6.9% 09/2024, previously 7.0% 04/2024. He is on toujeo 80, lispro 36-40 units TID, glimepiride 1mg in am, and 1000 mg metformin daily. - Previously had lows on glimepiride, which was discontinued, but glucose levels increased. Glimepiride was reintroduced at a lower dose (1 mg daily). - Reports high glucose levels mainly at night between 10 PM and midnight. - Experiences fluctuating weight due to fluid retention and reports edema in the feet. - Noted low hemoglobin levels; currently on oral iron supplements for eight weeks. 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 - Reports fatigue and breathlessness, uses CPAP for sleep. - Edema in feet. - Mild neuropathy dictated during podiatry exam 2 months ago - Ophthalmic: Last eye exam in January, no significant issues reported, some retinopathy improvement noted. - Intolerant to Trulicity, Mounjaro, and Ozempic due to eructation/flatulence foul, bloating. Jardiance caused UTIs/yeast infections (even with A1c of 7). Metformin at higher doses caused diarrhea. Interval history: Patient reports that his sensor malfunctioned, and he was unable to obtain a replacement He also reports that he had a flu-like episode, was given prednisone. He is currently doing better No hospitalization Reports that he has lost some weight Only had 1 episode of hypoglycemia in the last 3 months. Physical exam: General: Well appearing. NAD. Morbidly obese Neck/Thyroid: Thyroid not visibly enlarged Eyes: No conjunctival injection, not lid lag or proptosis CV: RRR, no murmur. Bilateral 2+ pitting edema Resp: Lungs clear to auscultation bilaterally\ Abdomen: Obese, nontender. nondistended Extremities/Neuro: No weakness or tremor of outstretched hands CGM data: Interpretation: Insufficienty data due to CGM use only 27% Laboratory Tests 02/23/25 13:53 Hgb A1c (Clinic) 6.9 H Laboratory Tests 07/07/24 02/11/25 15:12 12:26 Creatinine 1.10 Estimated GFR > 60 Urine Microalbumin 31.0 Microalb/Creat Ratio 26.4 [facility] Medical History Dyspnea on exertion Edema HTN (hypertension) Type 2 diabetes mellitus with diabetic polyneuropathy Iron deficiency anemia Cirrhosis Severe persistent allergic asthma Foot drop, left Lumbar radiculopathy, chronic Abnormal ECG Obesity due to excess calories Hx of pancreatitis Acid reflux Elevated alkaline phosphatase measurement Asthma MAURIZIO on CPAP Morbid obesity Degeneration of L4-L5 intervertebral disc Diabetes Anemia Apnea, sleep Obstructive sleep apnea Surgical History Hx of cholecystectomy History of back surgery Family History Father Diabetes Hearing loss Mother CVD (cardiovascular disease) Thyroid condition Paternal Grandmother Diabetes High blood pressure Paternal Aunt Diabetes High blood pressure Sister No problems noted. Sister No problems noted. 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 Physical Exam Vital Signs: Last Vital Signs Pulse 120 H 02/23/25 13:42 BP 120/80 02/23/25 13:42 Pulse Ox 96 02/23/25 13:42 Oxygen Delivery Method Room Air 02/23/25 13:42 BMI result Body Mass Index 47.7 Office Procedures Glucose Monitoring Details Details: See [facility] [address] - Glucose Monitoring, continuous Procedure code (CPT) selection complete Results AMB Hemoglobin A1c AMB Hemoglobin A1c 6.9 % Last Edit by VIDHI Payne on 02/23/25 13:57 Assessment & Plan Assessment & Plan (1) Type 2 diabetes mellitus with diabetic polyneuropathy: Code(s): E11.42 - Type 2 diabetes mellitus with diabetic polyneuropathy Category: Medical Qualifiers: Diabetes mellitus correction insulin use: with correction use Qualified Code(s): E11.42 - Type 2 diabetes mellitus with diabetic polyneuropathy; Z79.4 - terminologist (current) use of insulin Plan Type 2 diabetes with hyperglycemia, given the patient's own report of recent anemia, that A1c of 6.9 is not entirely reliable, but the CGM GMI was 7.6%. Patient currently using fixed doses for meals and subjective evaluation of when to use what dose for it, which could explain why he has hypoglycemia in the afternoon. Given that the patient is already on insulin injection and he developed hypoglycemia with glimepiride, it seems reasonable to stop glimepiride at this point and adjust insulin dosing, as patient is significantly insulin resistant given obesity and insulin doses requires for diabetes control. Unable to make adjustments to insulin dosing as CGM data is insufficient-CGM used 27%. We also discussed the benefits of weight loss not only for metaolic control, but also for hypertension, fatty lever, MAURIZIO and in general his quality of life. He has previously not tolerated GLP-1 agonists, hence we discussed bariatric surgery referral, which he agreed to. - Continue Lantus insulin 84 units. - Continue insulin based on sliding scale - Consider insulin pump for better management in the future. - Continue lifestyle modifications: balanced diet, portion control, and physical activity as tolerated. - Bariatric surgery referral - Follow-up in 1 month for reassessment. Orders: Orders AMB Glucose Monitoring Today E11.42 - Type 2 diabetes mellitus with diabetic polyneuropathy, Z79.4 - senior care (current) use of insulin AMB Hemoglobin A1c Today E11.42 - Type 2 diabetes mellitus with diabetic polyneuropathy, Z79.4 - terminologist (current) use of insulin Referrals Bariatric Surgery Referral E11.42 - Type 2 diabetes mellitus with diabetic polyneuropathy, E66.01 - Morbid (severe) obesity due to excess calories, G47.30 - Sleep apnea, unspecified, Z79.4 - terminologist (current) use of insulin Patient Instructions: Weight Management Program [address] [place] [address] [id number] Coding Level of Care Code Est Pt Level 3 (60409) Add On Problem Visit Only Diagnoses Type 2 diabetes mellitus with diabetic polyneuropathy, with long-term current use of insulin E11.42; Z79.4 Diabetes mellitus ocean transportation intermediary insulin use: with ocean transportation intermediary use CPT Codes Details - CPT: 03122 - Glucose Monitoring, continuous ([id number])
[2025-02-23 13:53] LABS: Glucose, Whole Blood 167 mg/dL (60-115)
== END 2025-02-23 14:05 | disposition home or self-care (01) ==
LOC: HO.ENCR 13:38
PROVIDERS: PCP Internal Medicine Geriatric Medicine; Visit Provider Student in an Organized Health Care Education/Training Program
DX: E11.42 Type 2 diabetes mellitus with diabetic polyneuropathy (principal); Z79.4 Long term (current) use of insulin
CPT/HCPCS: 99213